=== PATIENT | female | born 1985 | race Caucasian/White ===

== ENCOUNTER 2017-07-02 18:33 | Emergency (ER) | payer SELFPAY ==
[2017-07-02] MEDS ORDERED: PROTONIX 40 MG IV IV ONE ×2 (18:55→19:17)
[2017-07-02] MEDS ORDERED: Zofran 4 MG/2 ML VIAL IV ONE (18:55)
[2017-07-02 18:56] VITALS: BP 156/88; PULSE 91; O2SAT 99
[2017-07-02] MEDS ORDERED: Sodium Chloride 0.9% 1000 ML 1,000 ML IV SCH (19:00)
[2017-07-02] MEDS ORDERED: Sodium Chloride 0.9% 1000 ML 1,000 ML ONE (19:17)
[2017-07-02] MEDS ORDERED: Zofran 4 MG/2 ML VIAL ONE (19:17)
[2017-07-02] MEDS ORDERED: Hydromorphone 1 mg/ml Ampule IV ONE (19:21)
[2017-07-02 19:30] LABS: BASOPHIL % 0.2 % (0.0-0.4); Basophil (Absolute #) 0.02 (0-0.4); Eosinophil % 3.1 % (0.00-5.0); Eosinophil (Absolute #) 0.27 (0-0.5); Granulocyte Absolute (ANC) 5.07 (1.4-6.9); Granulocytes % 57.6 % (36.0-66.0); Hematocrit 40.2 % (35-47); Hemoglobin 13.6 gm/dl (12.0-16.0); Lymphocyte (Absolute #) 2.76 (1.0-4.6); Lymphocytes % 31.3 % (24.0-44.0); Mean Cell Volume 88.7 fl (78-100); Mean Corpuscular Hgb Concent. 33.8 g/dl (32-36); Mean Platelet Volume 9.2 fl (6-9.5); Monocyte (Absolute #) 0.69 (0.0-1.3); Monocytes % 7.8 % (0.0-12.0); Platelet Count 297 K/mm3 (150-450); Red Blood Count 4.53 M/mm3 (4.1-5.4); Red Cell Distribution Width 13.2 % (11.5-14.0); White Blood Count 8.8 K/mm3 (4.0-10.5)
[2017-07-02 19:36] LABS: Appearance CLEAR (CLEAR); Bilirubin NEGATIVE (NEGATIVE); Glucose NEGATIVE (NEGATIVE); Ketones NEGATIVE (NEGATIVE); Leukocyte Esterase NEGATIVE (NEGATIVE); Nitrite NEGATIVE (NEGATIVE); Protein,Urine Dip NEGATIVE (Negative); Urobilinogen NORMAL mg/dL (0-1)
[2017-07-02 19:37] LABS: Blood NEGATIVE Ery/ul (0-5)
[2017-07-02] MEDS ORDERED: DILAUDID 2 MG INJECTION ONE (19:46)
[2017-07-02 19:47] LABS: ALKALINE PHOSPHATASE 65 U/L (38-126); ANION GAP 14.1 MEQ/L (5-15); Amphetamine,Urine NEGATIVE (NEGATIVE); BLOOD UREA NITROGEN 13 mg/dL (7-17); Barbiturate,Urine NEGATIVE (NEGATIVE); Benzodiazepine,Urine NEGATIVE (NEGATIVE); CHLORIDE 106 mmol/L (98-107); Calcium 9.1 mg/dL (8.4-10.2); Carbon Dioxide 23 mmol/L (22-30); Cocaine,Urine NEGATIVE (NEGATIVE); Creatinine 1 0.84 mg/dL (0.52-1.04); Glucose 168 mg/dL (74-106); LIPASE 89 U/L (23-300); Methadone,Urine NEGATIVE (NEGATIVE); Opiate,Urine NEGATIVE (NEGATIVE); PCP,Urine NEGATIVE (NEGATIVE); Potassium 3.5 mmol/L (3.5-5.1); SGOT/AST 18 U/L (14-36); SGPT/ALT 23 U/L (0-35); SODIUM 139 mmol/L (137-145); THC,Urine NEGATIVE (NEGATIVE); Total Protein 7.3 g/dL (6.3-8.2)
--- NOTE | 2017-07-02 20:11 | ERPHSYRPT ---
- History of Present Illness Time Seen by Provider: 07/02/17 19:00 Source: patient Exam Limitations: clinical condition Patient Subjective Stated Complaint: pt abd pain to left side, and radiates to lower back. pain off and on since january and was dx with gallstones. has not had follow up Triage Nursing Assessment: pt alert, resp easy, skin w/d/p, abd soft, tender to touch, Physician History: PATIENT WITH A HISTORY OF GALLSTONES AND KIDNEY STONES COMPLAINS OF BILATERAL LOWER BACK PAIN SINCE THE PAST 4 HOURS, ASSOCIATED WITH EPIGASTRIC PAINS. DENIES FEVER, NAUSEA OR EMESIS, RADIATION OF PAIN TO BACK OR LOWER ABDOMEN, FREQUENCY, URGENCY, DYSURIA OR HEMATURIA. Timing/Duration: hour(s) Method of Injury: other (DENIES INJURY OR TRAUMA) Quality: sharp Severity of Pain-Max: moderate Severity of Pain-Current: moderate Modifying Factors: Improves With: nothing Associated Symptoms: other (PAIN OVER FLANKS) Allergies/Adverse Reactions: promethazine [From Phenergan] Allergy (Verified 07/02/17 18:56) Home Medications: Ibuprofen 200 mg [Motrin 200 mg] 200 mg DAILY 07/02/17 [History] Omeprazole Magnesium [Prilosec Otc] 20 mg DAILY 07/02/17 [History] Hx Influenza Vaccination/Date Given: Yes Hx Pneumococcal Vaccination/Date Given: No Immunizations Up to Date: Yes - Review of Systems Constitutional: No Fever, No Chills Eyes: No Symptoms Ears, Nose, & Throat: No Symptoms Respiratory: No Symptoms, No Cough, No Dyspnea Cardiac: No Chest Pain, No Edema, No Syncope Abdominal/Gastrointestinal: Abdominal Pain, No Nausea, No Vomiting, No Diarrhea Genitourinary Symptoms: Flank Pain, No Dysuria Musculoskeletal: No Symptoms, No Back Pain, No Neck Pain Skin: No Rash Neurological: No Dizziness, No Focal Weakness, No Sensory Changes Psychological: No Symptoms Endocrine: No Symptoms All Other Systems: Reviewed and Negative - Past Medical History Pertinent Past Medical History: Yes GI Medical History: Gallbladder Disease - Past Surgical History Past Surgical History: Yes Genitourinary: Other Female Surgical History: Section - Social History Smoking Status: Current every day smoker Exposure to second hand smoke: Yes Drug Use: none Patient Lives Alone: No - Female History Hx Last Menstrual Period: may Hx Now: (UNKNOWN) - Nursing Vital Signs Nursing Vital Signs: Initial Vital Signs Temperature 99.0 F 07/02/17 18:48 Pulse Rate 91 H 07/02/17 18:48 Respiratory Rate 16 07/02/17 18:48 Blood Pressure 156/88 07/02/17 18:48 O2 Sat by Pulse Oximetry 99 07/02/17 18:48 Pain Scale Pain Intensity 7 - Physical Exam General Appearance: no apparent distress, alert Eye Exam: PERRL/EOMI, eyes nml inspection Neck Exam: normal inspection, non-tender, supple, full range of motion, No meningismus, No midline tenderness Respiratory Exam: normal breath sounds, lungs clear, No respiratory distress Cardiovascular Exam: regular rate/rhythm, normal heart sounds Gastrointestinal Exam: soft, normal bowel sounds, No tenderness (EPIGASTRIC TENDERNESS, NO GUARDING OR REBOUND TENDERNESS.), No mass Back Exam: CVA tenderness (MINIMAL BILATERAL FLANK TENDERNESS) Extremity Exam: normal inspection, normal range of motion, No calf tenderness, No pedal edema Peripheral Pulses: carotid (R): 2+, carotid (L): 2+, femoral (R): 2+, femoral (L ): 2+, dorsalis-pedis (R): 2+, dorsalis-pedis (L): 2+ Neurologic Exam: alert, oriented x 3, cooperative, tree sapper II-XII nml as tested, normal mood/affect, nml station & gait, sensation nml, No motor deficits Skin Exam: normal color, warm, dry, No rash SpO2 Interpretation: normal SpO2: 99 Oxygen Delivery: Room Air - CT Exams Abdomen/Pelvis CT Interpretation: Discussed w/radiologist (2 CM GALL STONE, 2 NONOBSTRUCTING LEFT RENAL MICROCALLCULI, NORMAL APPENDIX) Ordered Tests: Active Orders 24 hr Category Date Time Status Clean Catch Urine Specimen STAT Care 07/02/17 18:55 Active IV Insertion STAT Care 07/02/17 18:55 Active ABDOMEN AND PELVIS W/0 CONTRAS [CT] Stat Exams 07/02/17 18:56 Taken CBC W DIFF Stat Lab 07/02/17 19:25 Completed CMP Stat Lab 07/02/17 19:25 Completed HCG,QUALITATIVE URINE Stat Lab 07/02/17 19:25 Completed LIPASE Stat Lab 07/02/17 19:25 Completed UA W/RFX UR CULTURE Stat Lab 07/02/17 19:25 Completed Urine Triage Profile Stat Lab 07/02/17 19:25 Completed Medication Summary Generic Name Dose Route Start Last Admin Trade Name Cheli PRN Reason Stop Dose Admin Sodium Chloride 1,000 mls @ 500 mls/hr 07/02/17 19:00 07/02/17 19:20 Sodium Chloride 0.9% 1000 Ml IV 08/01/17 18:59 500 mls/hr .Q2H HINA Administration Discontinued Medications Generic Name Dose Route Start Last Admin Trade Name Cheli PRN Reason Stop Dose Admin Hydromorphone HCl 1 mg 07/02/17 19:21 07/02/17 19:51 Hydromorphone 1 Mg/Ml Ampule IV 07/02/17 19:22 1 mg STAT ONE Administration Hydromorphone HCl Confirm 07/02/17 19:46 Dilaudid 2 Mg Injection Administered 07/02/17 19:47 Dose 2 mg .ROUTE .STK-MED ONE Ondansetron HCl 4 mg 07/02/17 18:55 07/02/17 19:20 Zofran 4 Mg/2 Ml Vial IV 07/02/17 18:56 4 mg STAT ONE Administration Ondansetron HCl Confirm 07/02/17 19:17 Zofran 4 Mg/2 Ml Vial Administered 07/02/17 19:18 Dose 4 mg .ROUTE .STK-MED ONE Pantoprazole Sodium 40 mg 07/02/17 18:55 07/02/17 19:20 Protonix 40 Mg Iv IV 07/02/17 18:56 40 mg STAT ONE Administration Pantoprazole Sodium Confirm 07/02/17 19:17 Protonix 40 Mg Iv Administered 07/02/17 19:18 Dose 40 mg IV .STK-MED ONE Lab/Rad Data: Laboratory Result Diagrams 07/02/17 19:25 07/02/17 19:25 Laboratory Results 07/02/17 07/02/17 07/02/17 Range/Units 19:25 19:25 19:25 WBC (4.0-10.5) K/mm3 RBC (4.1-5.4) M/mm3 Hgb (12.0-16.0) gm/dl Hct (35-47) % MCV (78-100) fl MCH (26-32) pg MCHC (32-36) g/dl RDW (11.5-14.0) % Plt Count (150-450) K/mm3 MPV (6-9.5) fl Gran % (36.0-66.0) % Eos # (Auto) (0-0.5) Absolute Lymphs (auto) (1.0-4.6) Absolute Monos (auto) (0.0-1.3) Lymphocytes % (24.0-44.0) % Monocytes % (0.0-12.0) % Eosinophils % (0.00-5.0) % Basophils % (0.0-0.4) % Absolute Granulocytes (1.4-6.9) Basophils # (0-0.4) Sodium (137-145) mmol/L Potassium (3.5-5.1) mmol/L Chloride (98-107) mmol/L Carbon Dioxide (22-30) mmol/L Anion Gap (5-15) MEQ/L BUN (7-17) mg/dL Creatinine (0.52-1.04) mg/dL Estimated GFR ML/MIN Glucose (74-106) mg/dL Calcium (8.4-10.2) mg/dL Total Bilirubin (0.2-1.3) mg/dL AST (14-36) U/L ALT (0-35) U/L Alkaline Phosphatase (38-126) U/L Serum Total Protein (6.3-8.2) g/dL Albumin (3.5-5.0) g/dL Lipase (23-300) U/L Ur Collection Type CCMS Urine Color YELLOW (YELLOW) Urine Appearance CLEAR (CLEAR) Urine pH 5.0 (5-6) Ur Specific [place] 1.020 (1.005-1.025) Urine Protein NEGATIVE (Negative) Urine Ketones NEGATIVE (NEGATIVE) Urine Blood NEGATIVE (0-5) Flip/ul Urine Nitrite NEGATIVE (NEGATIVE) Urine Bilirubin NEGATIVE (NEGATIVE) Urine Urobilinogen NORMAL (0-1) mg/dL Ur Leukocyte Esterase NEGATIVE (NEGATIVE) Urine Culture Reflexed NO (NO) Urine Glucose NEGATIVE (NEGATIVE) mg/dL Urine HCG, Qual NEGATIVE (Negative) Urine Opiates Level NEGATIVE (NEGATIVE) Ur Methadone NEGATIVE (NEGATIVE) Urine Barbiturates NEGATIVE (NEGATIVE) Ur Phencyclidine (PCP) NEGATIVE (NEGATIVE) Urine Amphetamine NEGATIVE (NEGATIVE) U Benzodiazepine Level NEGATIVE (NEGATIVE) Urine Cocaine NEGATIVE (NEGATIVE) Urine Marijuana (THC) NEGATIVE (NEGATIVE) Specimen Received [id number]/02/17 07/02/17 Range/Units 19:25 19:25 WBC 8.8 (4.0-10.5) K/mm3 RBC 4.53 (4.1-5.4) M/mm3 Hgb 13.6 (12.0-16.0) gm/dl Hct 40.2 (35-47) % MCV 88.7 (78-100) fl MCH 30.0 (26-32) pg MCHC 33.8 (32-36) g/dl RDW 13.2 (11.5-14.0) % Plt Count 297 (150-450) K/mm3 MPV 9.2 (6-9.5) fl Gran % 57.6 (36.0-66.0) % Eos # (Auto) 0.27 (0-0.5) Absolute Lymphs (auto) 2.76 (1.0-4.6) Absolute Monos (auto) 0.69 (0.0-1.3) Lymphocytes % 31.3 (24.0-44.0) % Monocytes % 7.8 (0.0-12.0) % Eosinophils % 3.1 (0.00-5.0) % Basophils % 0.2 (0.0-0.4) % Absolute Granulocytes 5.07 (1.4-6.9) Basophils # 0.02 (0-0.4) Sodium 139 (137-145) mmol/L Potassium 3.5 (3.5-5.1) mmol/L Chloride 106 (98-107) mmol/L Carbon Dioxide 23 (22-30) mmol/L Anion Gap 14.1 (5-15) MEQ/L BUN 13 (7-17) mg/dL Creatinine 0.84 (0.52-1.04) mg/dL Estimated GFR > 60.0 ML/MIN Glucose 168 H (74-106) mg/dL Calcium 9.1 (8.4-10.2) mg/dL Total Bilirubin 0.10 L (0.2-1.3) mg/dL AST 18 (14-36) U/L ALT 23 (0-35) U/L Alkaline Phosphatase 65 (38-126) U/L Serum Total Protein 7.3 (6.3-8.2) g/dL Albumin 4.0 (3.5-5.0) g/dL Lipase 89 (23-300) U/L Ur Collection Type Urine Color (YELLOW) Urine Appearance (CLEAR) Urine pH (5-6) Ur Specific [place] (1.005-1.025) Urine Protein (Negative) Urine Ketones (NEGATIVE) Urine Blood (0-5) Flip/ul Urine Nitrite (NEGATIVE) Urine Bilirubin (NEGATIVE) Urine Urobilinogen (0-1) mg/dL Ur Leukocyte Esterase (NEGATIVE) Urine Culture Reflexed (NO) Urine Glucose (NEGATIVE) mg/dL Urine HCG, Qual (Negative) Urine Opiates Level (NEGATIVE) Ur Methadone (NEGATIVE) Urine Barbiturates (NEGATIVE) Ur Phencyclidine (PCP) (NEGATIVE) Urine Amphetamine (NEGATIVE) U Benzodiazepine Level (NEGATIVE) Urine Cocaine (NEGATIVE) Urine Marijuana (THC) (NEGATIVE) Specimen Received - Progress Progress Note: 07/02/17 20:11 IV NORMAL SALINE 500ML/HR, ZOFRAN 4MG, DILAUDID 1MG IV Counseled pt/family regarding: lab results, diagnosis, need for follow-up, rad results - Departure Time of Disposition: 21:00 Departure Disposition: Home Clinical Impression: ABDOMINAL PAIN., CHOLELITHIASIS, RENAL CALCULLI Condition: Stable Critical Care Time: No Referrals: DOCTOR,NO FAMILY [Primary Care Provider] - Additional Instructions: PERCOGESIC 1-2 TABLETS EVERY 4 HOURS NEEDED FOR PAIN. CONSULT YOUR PRIMARY CARE PROVIDER FOR EVALUATION OF GALLSTONE. RETURN TO EMERGENCY FOR INCREASING PAIN, ONSET OF FEVER OR VOMITING. Prescriptions: Acetaminophen/Diphenhydramine [Percogesic 325-12.5 mg Tablet] 1 each PO Q4HPRN PRN #20 tablet PRN Reason: Pain
--- NOTE | 2017-07-03 08:37 | XRAY ---
Indication: Flank pain. Multiple contiguous axial images obtained through the abdomen and pelvis without contrast as ordered. Comparison: December 25, 2008. Lung bases are clear. Heart is not enlarged. Noncontrasted stomach and bowel loops appear nonobstructed. Normal appendix. No free fluid/air. 2 new nonobstructing left renal micro-calculi, largest 3 mm. 2 cm new gallstone. Stable fatty liver. Remaining liver, gallbladder, pancreas, spleen, adrenal glands, kidneys, ureters, bladder, uterus, and aorta appear unremarkable for noncontrast exam. Osseous structures intact with mild lumbosacral junction degenerative disc disease. No ventral or inguinal hernias. Impression: 1. New gallstone and nonobstructing left renal micro-calculi. 2. Stable fatty liver. 3. No acute intra-abdominal/pelvic abnormalities on this noncontrast exam. CT DI 23.27
== END 2017-07-02 21:05 | disposition home or self-care (01) ==
LOC: ED 18:33
DX: R10.9 Unspecified abdominal pain (principal); K80.20 Calculus of gallbladder without cholecystitis without obstruction; N20.0 Calculus of kidney
CPT/HCPCS: 36000; 36415; 74176; 80053; 80307; 81002; 83690; 84703; 85025; 96360; 96361; 96365; 96374; 96375; 99284; J1170; J2405

== ENCOUNTER 2017-07-26 15:26 | Emergency (ER) | payer SELFPAY ==
[2017-07-26] MEDS ORDERED: Zofran 4 MG/2 ML VIAL IV ONE (16:13)
[2017-07-26] MEDS ORDERED: Pepcid 20 MG VIAL IV ONE ×2 (16:14→17:04)
[2017-07-26] MEDS ORDERED: Sodium Chloride 0.9% 1000 ML 1,000 ML IV SCH (16:15)
[2017-07-26 16:32] LABS: BASOPHIL % 0.2 % (0.0-0.4); Basophil (Absolute #) 0.02 (0-0.4); Eosinophil % 3.2 % (0.00-5.0); Eosinophil (Absolute #) 0.29 (0-0.5); Granulocyte Absolute (ANC) 5.11 (1.4-6.9); Granulocytes % 56.9 % (36.0-66.0); Hematocrit 40.2 % (35-47); Hemoglobin 13.3 gm/dl (12.0-16.0); Lymphocyte (Absolute #) 2.64 (1.0-4.6); Lymphocytes % 29.3 % (24.0-44.0); Mean Cell Volume 90.7 fl (78-100); Mean Corpuscular Hgb Concent. 33.1 g/dl (32-36); Monocyte (Absolute #) 0.94 (0.0-1.3); Monocytes % 10.4 % (0.0-12.0); Platelet Count 304 K/mm3 (150-450); Red Blood Count 4.43 M/mm3 (4.1-5.4); Red Cell Distribution Width 13.6 % (11.5-14.0)
[2017-07-26 16:38] LABS: Appearance CLEAR (CLEAR); Bilirubin NEGATIVE (NEGATIVE); Blood NEGATIVE Ery/ul (0-5); Glucose NEGATIVE (NEGATIVE); Ketones NEGATIVE (NEGATIVE); Leukocyte Esterase NEGATIVE (NEGATIVE); Nitrite NEGATIVE (NEGATIVE); Protein,Urine Dip NEGATIVE (Negative); Specific Gravity 1.015 (1.005-1.025); Urobilinogen NORMAL mg/dL (0-1)
--- NOTE | 2017-07-26 16:38 | ERPHSYRPT ---
- History of Present Illness Time Seen by Provider: 07/26/17 15:50 Historian: patient Exam Limitations: no limitations Patient Subjective Stated Complaint: states began having abd pain earlier today. hx gallstones. states pain is sharp. having some nausea but has not had diarrhea or vomiting. Triage Nursing Assessment: ambulated to room per self. skin w/d, color normal, resp easy. holding mid abd. abd soft, large. tender in upper abd. normal bowel sounds throughout. Physician History: Pt started c/p epigastric pain, nausea about one hour ago, she is nauseated, but denies vomiting, no diarrhea, fever, no SOB, or cough. She states, she has had similar paqin in the past several times, but not this "bad". She was diagnosed with gallstones, had 2 C sections, no other abdominal surgery. Activities at Onset: none Quality: cramping, sharpness Abdominal Pain Onset Location: epigastric Pain Radiation: no radiation Severity of Pain-Max: severe Severity of Pain-Current: moderate Modifying Factors: Improves With: nothing Associated Symptoms: nausea Previous symptoms: same symptoms as today Allergies/Adverse Reactions: ketorolac [From Toradol] Allergy (Verified 07/26/17 16:27) promethazine [From Phenergan] Allergy (Verified 07/26/17 15:41) tramadol Allergy (Verified 07/26/17 16:27) diphenhydramine [From Benadryl] Adverse Reaction (Verified 07/26/17 15:41) Home Medications: No Reportable Medications [No Reported Medications] 07/26/17 [History] Hx Tetanus, Diphtheria Vaccination/Date Given: Yes Hx Influenza Vaccination/Date Given: Yes Hx Pneumococcal Vaccination/Date Given: No - Review of Systems Constitutional: No Symptoms Respiratory: No Symptoms Cardiac: No Symptoms Abdominal/Gastrointestinal: Abdominal Pain, Nausea All Other Systems: Reviewed and Negative - Past Medical History Pertinent Past Medical History: Yes GI Medical History: Gallbladder Disease - Past Surgical History Past Surgical History: Yes Genitourinary: Other Female Surgical History: Section - Social History Smoking Status: Current every day smoker How long have you smoked: 13 Exposure to second hand smoke: No Drug Use: none Patient Lives Alone: No - Female History Hx Last Menstrual Period: 07/05/17 Hx Now: No - Nursing Vital Signs Nursing Vital Signs: Initial Vital Signs Temperature 97.7 F 07/26/17 15:34 Pulse Rate 83 07/26/17 15:34 Respiratory Rate 20 07/26/17 15:34 Blood Pressure 157/81 07/26/17 15:34 O2 Sat by Pulse Oximetry 98 07/26/17 15:34 Pain Scale Pain Intensity 9 - Physical Exam General Appearance: no apparent distress Eye Exam: eyes nml inspection Ears, Nose, Throat Exam: normal ENT inspection, moist mucous membranes Neck Exam: normal inspection, non-tender, supple Respiratory Exam: normal breath sounds, lungs clear, airway intact, No chest tenderness Cardiovascular Exam: regular rate/rhythm, normal heart sounds, normal peripheral pulses, No murmur Gastrointestinal/Abdomen Exam: soft, normal bowel sounds, tenderness (epigastric , mild), No distention, No mass, No guarding, No rebound, No hernia Back Exam: normal inspection, No CVA tenderness Extremity Exam: normal inspection Neurologic Exam: alert, oriented x 3, normal mood/affect Skin Exam: normal color, warm, dry, No rash Lymphatic Exam: adenopathy SpO2: 98 Oxygen Delivery: Room Air - Course Nursing assessment & vital signs reviewed: Yes EKG Interpreted by Me: RATE (86/min), NORMAL AXIS, NORMAL INTERVALS, Non- specific ST Changes Ordered Tests: Active Orders 24 hr Category Date Time Status EKG-ER Only STAT Care 07/26/17 16:13 Active IV Insertion STAT Care 07/26/17 16:13 Active ABDOMEN AND PELVIS W CONTRAST [CT] Stat Exams 07/26/17 16:13 Taken CHEST 1 VIEW (PORTABLE) Stat Exams 07/26/17 16:13 Taken AMYLASE Routine Lab 07/26/17 16:33 Completed CBC W DIFF Stat Lab 07/26/17 16:13 Completed CMP Routine Lab 07/26/17 16:33 Completed HCG,QUALITATIVE URINE Stat Lab 07/26/17 Completed LIPASE Routine Lab 07/26/17 16:33 Completed TROPONIN Q3H Lab 07/26/17 16:33 Completed TROPONIN Q3H Lab 07/26/17 19:15 Ordered TROPONIN Q3H Lab 07/26/17 22:15 Ordered TROPONIN Q3H Lab 07/27/17 01:15 Ordered TROPONIN Q3H Lab 07/27/17 04:15 Ordered UA W/RFX UR CULTURE Stat Lab 07/26/17 16:13 Completed Urine Triage Profile Stat Lab 04/26/18 Completed Medication Summary Generic Name Dose Route Start Last Admin Trade Name Cheli PRN Reason Stop Dose Admin Sodium Chloride 1,000 mls @ 100 mls/hr 07/26/17 16:15 07/26/17 17:08 Sodium Chloride 0.9% 1000 Ml IV 08/25/17 16:14 100 mls/hr .Q10H HINA Administration Discontinued Medications Generic Name Dose Route Start Last Admin Trade Name Cheli PRN Reason Stop Dose Admin Al Hydrox/Mg Hydrox/Simethicone Confirm 07/26/17 17:05 Maalox Es 30 Ml Unit Dose Administered 07/26/17 17:06 Dose 30 ml .ROUTE .STK-MED ONE Famotidine 20 mg 07/26/17 16:14 07/26/17 17:09 Pepcid 20 Mg Vial IV 07/26/17 16:15 20 mg STAT ONE Administration Famotidine Confirm 07/26/17 17:04 Pepcid 20 Mg Vial Administered 07/26/17 17:05 Dose 20 mg IV .STK-MED ONE Lidocaine HCl Confirm 07/26/17 17:05 Xylocaine Hcl Viscous * Administered 07/26/17 17:06 Dose 15 ml .ROUTE .STK-MED ONE Magnesium Hydroxide 45 ml 07/26/17 16:14 07/26/17 17:12 Gi Cocktail 45 Ml (Maalox/Lidocaine) PO 07/26/17 16:15 Not Given STAT ONE Ondansetron HCl 4 mg 07/26/17 16:13 07/26/17 17:09 Zofran 4 Mg/2 Ml Vial IV 07/26/17 16:14 4 mg STAT ONE Administration Ondansetron HCl Confirm 07/26/17 17:04 Zofran 4 Mg/2 Ml Vial Administered 07/26/17 17:05 Dose 4 mg .ROUTE .STK-MED ONE Lab/Rad Data: Laboratory Result Diagrams 07/26/17 16:13 07/26/17 16:33 Laboratory Results 07/26/17 07/26/17 07/26/17 Range/Units Unknown Unknown 16:33 WBC (4.0-10.5) K/mm3 RBC (4.1-5.4) M/mm3 Hgb (12.0-16.0) gm/dl Hct (35-47) % MCV (78-100) fl MCH (26-32) pg MCHC (32-36) g/dl RDW (11.5-14.0) % Plt Count (150-450) K/mm3 MPV (6-9.5) fl Gran % (36.0-66.0) % Eos # (Auto) (0-0.5) Absolute Lymphs (auto) (1.0-4.6) Absolute Monos (auto) (0.0-1.3) Lymphocytes % (24.0-44.0) % Monocytes % (0.0-12.0) % Eosinophils % (0.00-5.0) % Basophils % (0.0-0.4) % Absolute Granulocytes (1.4-6.9) Basophils # (0-0.4) Sodium 141 (137-145) mmol/L Potassium 3.8 (3.5-5.1) mmol/L Chloride 103 (98-107) mmol/L Carbon Dioxide 28 (22-30) mmol/L Anion Gap 14.0 (5-15) MEQ/L BUN 15 (7-17) mg/dL Creatinine 0.93 (0.52-1.04) mg/dL Estimated GFR > 60.0 ML/MIN Glucose 135 H (74-106) mg/dL Calcium 9.6 (8.4-10.2) mg/dL Total Bilirubin 0.10 L (0.2-1.3) mg/dL AST 28 (14-36) U/L ALT 31 (0-35) U/L Alkaline Phosphatase 69 (38-126) U/L Troponin I < 0.012 (0.000-0.034) ng/mL Serum Total Protein 7.6 (6.3-8.2) g/dL Albumin 4.1 (3.5-5.0) g/dL Amylase 95 (30-110) U/L Lipase 402 H (23-300) U/L Ur Collection Type Urine Color (YELLOW) Urine Appearance (CLEAR) Urine pH (5-6) Ur Specific [place] (1.005-1.025) Urine Protein (Negative) Urine Ketones (NEGATIVE) Urine Blood (0-5) Flip/ul Urine Nitrite (NEGATIVE) Urine Bilirubin (NEGATIVE) Urine Urobilinogen (0-1) mg/dL Ur Leukocyte Esterase (NEGATIVE) Urine Culture Reflexed (NO) Urine Glucose (NEGATIVE) mg/dL Urine HCG, Qual NEGATIVE (Negative) Urine Opiates Level NEGATIVE (NEGATIVE) Ur Methadone NEGATIVE (NEGATIVE) Urine Barbiturates NEGATIVE (NEGATIVE) Ur Phencyclidine (PCP) NEGATIVE (NEGATIVE) Urine Amphetamine NEGATIVE (NEGATIVE) U Benzodiazepine Level NEGATIVE (NEGATIVE) Urine Cocaine NEGATIVE (NEGATIVE) Urine Marijuana (THC) NEGATIVE (NEGATIVE) Specimen Received 07/26/17 07/26/17 Range/Units 16:13 16:13 WBC 9.0 (4.0-10.5) K/mm3 RBC 4.43 (4.1-5.4) M/mm3 Hgb 13.3 (12.0-16.0) gm/dl Hct 40.2 (35-47) % MCV 90.7 (78-100) fl MCH 30.0 (26-32) pg MCHC 33.1 (32-36) g/dl RDW 13.6 (11.5-14.0) % Plt Count 304 (150-450) K/mm3 MPV 9.0 (6-9.5) fl Gran % 56.9 (36.0-66.0) % Eos # (Auto) 0.29 (0-0.5) Absolute Lymphs (auto) 2.64 (1.0-4.6) Absolute Monos (auto) 0.94 (0.0-1.3) Lymphocytes % 29.3 (24.0-44.0) % Monocytes % 10.4 (0.0-12.0) % Eosinophils % 3.2 (0.00-5.0) % Basophils % 0.2 (0.0-0.4) % Absolute Granulocytes 5.11 (1.4-6.9) Basophils # 0.02 (0-0.4) Sodium (137-145) mmol/L Potassium (3.5-5.1) mmol/L Chloride (98-107) mmol/L Carbon Dioxide (22-30) mmol/L Anion Gap (5-15) MEQ/L BUN (7-17) mg/dL Creatinine (0.52-1.04) mg/dL Estimated GFR ML/MIN Glucose (74-106) mg/dL Calcium (8.4-10.2) mg/dL Total Bilirubin (0.2-1.3) mg/dL AST (14-36) U/L ALT (0-35) U/L Alkaline Phosphatase (38-126) U/L Troponin I (0.000-0.034) ng/mL Serum Total Protein (6.3-8.2) g/dL Albumin (3.5-5.0) g/dL Amylase (30-110) U/L Lipase (23-300) U/L Ur Collection Type VOID Urine Color YELLOW (YELLOW) Urine Appearance CLEAR (CLEAR) Urine pH 7.0 (5-6) Ur Specific [place] 1.015 (1.005-1.025) Urine Protein NEGATIVE (Negative) Urine Ketones NEGATIVE (NEGATIVE) Urine Blood NEGATIVE (0-5) Flip/ul Urine Nitrite NEGATIVE (NEGATIVE) Urine Bilirubin NEGATIVE (NEGATIVE) Urine Urobilinogen NORMAL (0-1) mg/dL Ur Leukocyte Esterase NEGATIVE (NEGATIVE) Urine Culture Reflexed NO (NO) Urine Glucose NEGATIVE (NEGATIVE) mg/dL Urine HCG, Qual (Negative) Urine Opiates Level (NEGATIVE) Ur Methadone (NEGATIVE) Urine Barbiturates (NEGATIVE) Ur Phencyclidine (PCP) (NEGATIVE) Urine Amphetamine (NEGATIVE) U Benzodiazepine Level (NEGATIVE) Urine Cocaine (NEGATIVE) Urine Marijuana (THC) (NEGATIVE) Specimen Received 07/26/17 1630 - Progress Progress: unchanged Progress Note: 07/26/17 18:03 Pt did not wait until all results returned ( CT abdomen/pelvis pending), she left AMA, refused further observation and treatments. She is alert and oriented x4, mentally competent. - Departure Time of Disposition: 18:04 Departure Disposition: AMA Clinical Impression: Abdominal pain Qualifiers: Abdominal location: epigastric Qualified Code(s): R10.13 - Epigastric pain Condition: Stable Critical Care Time: No Referrals: DID[facility] [Primary Care Provider] - Instructions: Acute Abdomen (Belly Pain) Additional Instructions: Rest x 2-3 days, drink plenty of fluids, return if severe pain, vomiting, or fever> 102 F!
[2017-07-26 16:53] LABS: ALBUMIN 4.1 g/dL (3.5-5.0); ALKALINE PHOSPHATASE 69 U/L (38-126); AMYLASE 95 U/L (30-110); BLOOD UREA NITROGEN 15 mg/dL (7-17); CHLORIDE 103 mmol/L (98-107); Calcium 9.6 mg/dL (8.4-10.2); Carbon Dioxide 28 mmol/L (22-30); Creatinine 1 0.93 mg/dL (0.52-1.04); Glucose 135 mg/dL (74-106); LIPASE 402 U/L (23-300); Potassium 3.8 mmol/L (3.5-5.1); SGOT/AST 28 U/L (14-36); SGPT/ALT 31 U/L (0-35); SODIUM 141 mmol/L (137-145); Total Protein 7.6 g/dL (6.3-8.2)
[2017-07-26] MEDS ORDERED: Zofran 4 MG/2 ML VIAL ONE (17:04)
[2017-07-26] MEDS ORDERED: MAALOX ES 30 ML UNIT DOSE ONE (17:05)
[2017-07-26] MEDS ORDERED: Sodium Chloride 0.9% 1000 ML 1,000 ML ONE (17:05)
[2017-07-26] MEDS ORDERED: XYLOCAINE HCl Viscous ONE (17:05)
[2017-07-26 17:06] LABS: Amphetamine,Urine NEGATIVE (NEGATIVE); Barbiturate,Urine NEGATIVE (NEGATIVE); Benzodiazepine,Urine NEGATIVE (NEGATIVE); Cocaine,Urine NEGATIVE (NEGATIVE); Methadone,Urine NEGATIVE (NEGATIVE); Opiate,Urine NEGATIVE (NEGATIVE); PCP,Urine NEGATIVE (NEGATIVE); THC,Urine NEGATIVE (NEGATIVE)
[2017-07-26 17:06] LABS: TROPONIN < 0.012 ng/mL (0.000-0.034)
[2017-07-26] MEDS: GI COCKTAIL 45 ML (Maalox/Lidocaine) PO ONE ×2 (17:09→17:12)
[2017-07-26 17:17] VITALS: BP 122/67; PULSE 91
[2017-07-26 18:05] VITALS: O2SAT 98
--- NOTE | 2017-07-26 18:32 | XRAY ---
Indication: Right upper quadrant pain. Comparison: None Portable chest demonstrates normal heart, lungs, and bony thorax.
--- NOTE | 2017-07-26 18:37 | XRAY ---
Indication: Right upper quadrant pain. Multiple contiguous axial images obtained through the abdomen and pelvis using 80 cc of Isovue-370 contrast only. Comparison: July 02, 2017. Lung bases remain clear. Heart is not enlarged. Stomach is distended with food/fluid. Noncontrasted stomach and bowel loops appear nonobstructed. There is again mild diffuse scattered colonic fecal debris throughout. Again normal appendix. No free fluid/air. Gallbladder partially contracted with stable 2 cm gallstone. Stable fatty liver and nonobstructing left renal micro-calculi. Remaining liver, gallbladder, pancreas, spleen, adrenal glands, kidneys, ureters, bladder, uterus, and aorta appear unremarkable. No pathologic retroperitoneal lymphadenopathy. Impression: 1. Contracted gallbladder with stable stone. 2. Mild fecal stasis without obstruction. 3. Stable fatty liver and nonobstructing left renal micro-calculi. CTDI 23.64
== END 2017-07-26 18:15 | disposition left against medical advice (07) ==
LOC: ED 15:26
DX: R10.13 Epigastric pain (principal); R11.0 Nausea
CPT/HCPCS: 36000; 36415; 71045; 74177; 80053; 80307; 81002; 82150; 83690; 84484; 84703; 85025; 93005; 96360; 96374; 96375; 99284; 99285; J2405; A9270-GY

== ENCOUNTER 2018-01-05 19:26 | Emergency (ER) | payer OTHER ==
[2018-01-05] MEDS ORDERED: Pepcid 20 MG PO ONE (20:20)
--- NOTE | 2018-01-05 20:20 | ERPHSYRPT ---
- History of Present Illness Time Seen by Provider: 01/05/18 20:10 Source: patient Exam Limitations: no limitations Patient Subjective Stated Complaint: states has a boil on upper inner left thigh for one week. denies drainage Triage Nursing Assessment: patient ambulated to room per self. did not want me to look at wound on leg at this time. states she is on her period. Physician History: 32-year-old white female arrives with complaint that she has a boil on her left upper thigh near her groin/buttock symptoms for a week she states today at home she had a fever no nausea no vomiting she states she has chronic heartburn for years. She takes medication for this every other day. She has no chest pain no abdominal pain. Past medical history includes gallbladder disease, anxiety, depression. Past surgical history includes . Timing/Duration: week(s) (1 week.) Severity: moderate Associated Symptoms: fever, No nausea, No vomiting, No abdominal pain, No shortness of breath, No heartburn, No diaphoresis, No cough, No chills, No chest pain, No headaches, No loss of appetite, No malaise, No rash, No syncope, No seizure, No weakness Allergies/Adverse Reactions: ketorolac [From Toradol] Allergy (Verified 01/05/18 19:47) promethazine [From Phenergan] Allergy (Verified 01/05/18 19:47) tramadol Allergy (Verified 01/05/18 19:47) diphenhydramine [From Benadryl] Adverse Reaction (Verified 01/05/18 19:47) Home Medications: Melatonin/Pyridoxine HCl (B6) [Melatonin 5 mg Tablet] 1 each PO HS 01/05/18 [ History] Hx Tetanus, Diphtheria Vaccination/Date Given: Yes Hx Influenza Vaccination/Date Given: No Hx Pneumococcal Vaccination/Date Given: No - Review of Systems Constitutional: No Fever, No Chills Eyes: No Symptoms Ears, Nose, & Throat: No Symptoms Respiratory: No Cough, No Dyspnea Cardiac: No Chest Pain, No Edema, No Syncope Abdominal/Gastrointestinal: Other (chronic heartburn), No Abdominal Pain, No Nausea, No Vomiting, No Diarrhea, No Constipation, No Hematemesis, No Hematochezia, No Melena, No Dysphagia, No Appetite Changes Genitourinary Symptoms: No Dysuria Musculoskeletal: No Back Pain, No Neck Pain Skin: Other (patient states she has a boil on her left upper thigh times one week.) Neurological: No Dizziness, No Focal Weakness, No Sensory Changes Psychological: No Symptoms Endocrine: No Symptoms All Other Systems: Reviewed and Negative - Past Medical History Pertinent Past Medical History: Yes GI Medical History: Gallbladder Disease Psycho-Social History: Anxiety, Depression - Past Surgical History Past Surgical History: Yes Genitourinary: Other Female Surgical History: Section - Social History Smoking Status: Current every day smoker How long have you smoked: 12 Exposure to second hand smoke: No Drug Use: none Patient Lives Alone: No - Female History Hx Last Menstrual Period: now Hx Now: No - Nursing Vital Signs Nursing Vital Signs: Initial Vital Signs Temperature 98.9 F 01/05/18 19:33 Pulse Rate 103 H 01/05/18 19:33 Respiratory Rate 16 01/05/18 19:33 Blood Pressure 147/87 01/05/18 19:33 O2 Sat by Pulse Oximetry 98 01/05/18 19:33 Pain Scale Pain Intensity 7 - Physical Exam General Appearance: mild distress, anxiety Ears, Nose, Throat Exam: normal ENT inspection, TMs normal, pharynx normal, moist mucous membranes Neck Exam: normal inspection, non-tender, supple, full range of motion Respiratory Exam: normal breath sounds, lungs clear, No respiratory distress Cardiovascular Exam: regular rate/rhythm, normal heart sounds, normal peripheral pulses Gastrointestinal/Abdomen Exam: soft, normal bowel sounds, No tenderness, No mass Back Exam: normal inspection, normal range of motion, No CVA tenderness, No vertebral tenderness Extremity Exam: normal inspection, normal range of motion, pelvis stable Neurologic Exam: alert, oriented x 3, cooperative, ribbon weaver II-XII nml as tested, normal mood/affect, nml cerebellar function, nml station & gait, sensation nml, No motor deficits Skin Exam: other (small hard lesion left upper thigh approximately 1 cm not erythematous.) Lymphatic Exam: No adenopathy SpO2 Interpretation: normal (98%) SpO2: 98 Oxygen Delivery: Room Air - Course Nursing assessment & vital signs reviewed: Yes Ordered Tests: Active Orders 24 hr Category Date Time Status Accucheck STAT Care 01/05/18 20:54 Active HCG,QUALITATIVE URINE Stat Lab 01/05/18 20:29 Completed UA W/RFX UR CULTURE Stat Lab 01/05/18 20:29 Completed Urine Triage Profile Stat Lab 01/05/18 20:29 Completed Medication Summary Discontinued Medications Generic Name Dose Route Start Last Admin Trade Name Cheli PRFelicita Reason Stop Dose Admin Famotidine 20 mg 01/05/18 20:20 01/05/18 20:26 Pepcid 20 Mg PO 01/05/18 20:21 20 mg STAT ONE Administration Famotidine Confirm 01/05/18 20:26 Pepcid 20 Mg Administered 01/05/18 20:27 Dose 20 mg .ROUTE .STK-MED ONE Lab/Rad Data: Laboratory Results 01/05/18 01/05/18 01/05/18 Range/Units 20:29 20:29 20:29 Urine Color YELLOW (YELLOW) Urine Appearance SLIGHTLY CLOUDY (CLEAR) Urine pH 5.0 (5-6) Ur Specific [place] 1.028 (1.005-1.025) Urine Protein NEGATIVE (Negative) Urine Ketones NEGATIVE (NEGATIVE) Urine Blood LARGE (0-5) Flip/ul Urine Nitrite NEGATIVE (NEGATIVE) Urine Bilirubin NEGATIVE (NEGATIVE) Urine Urobilinogen NEGATIVE (0-1) mg/dL Ur Leukocyte Esterase NEGATIVE (NEGATIVE) Urine WBC (Auto) 3-5 (0-5) /HPF Urine RBC (Auto) 11-15 (0-2) /HPF U Epithel Cells (Auto) RARE (FEW) /HPF Urine Culture Reflexed NO (NO) Urine Glucose >=500 (NEGATIVE) mg/dL Urine HCG, Qual NEGATIVE (Negative) Urine Opiates Level NEGATIVE (NEGATIVE) Ur Methadone NEGATIVE (NEGATIVE) Urine Barbiturates NEGATIVE (NEGATIVE) Ur Phencyclidine (PCP) NEGATIVE (NEGATIVE) Urine Amphetamine NEGATIVE (NEGATIVE) U Benzodiazepine Level NEGATIVE (NEGATIVE) Urine Cocaine NEGATIVE (NEGATIVE) Urine Marijuana (THC) NEGATIVE (NEGATIVE) - Progress Progress: improved Progress Note: 01/05/18 20:17 This is a 32-year-old white female with history of gallbladder disease, anxiety , depression She arrives with complaint of a small "boil left upper thigh symptoms for one week. She states that this area is painful she states she had a fever at home no nausea no vomiting. Patient does state that she has chronic heartburn for years she takes a medication every other day. On physical examination I see a small firm lesion 1 cm which is hard not erythematous left side the junction of the buttocks and groin. Really nothing that appears that can be lanced. Patient is refusing any EKGs refusing any blood work. Will go ahead and get a urine and urine drug screen. Plan to give patient Pepcid for her heartburn that she is to continue her medication at home. Consider Bactrim, consider a very small amount of pain medications. Patient does state she is allergic to Toradol promethazine tramadol and Benadryl. 01/05/18 20:59 Patient has a urine glucose of over 500. Patient was Accu-Chek of 277. Patient does not want IVs or blood work. She states she ate ice cream right before arrival. Will go ahead and write for Bactrim DS one orally twice a day for 10 days. Will write for a very small amount of [place] for pain. Patient will be advised to follow-up with her family doctor for further evaluation. 01/05/18 21: - Departure Time of Disposition: 21:01 Departure Disposition: Home Clinical Impression: Abscess of left groin, Hyperglycemia, Chronic heartburn Condition: Fair Critical Care Time: No Referrals: DIDI BARCENAS [facility]ER [Primary Care Provider] - Additional Instructions: Return home. Plenty of fluids. Bactrim DS one orally twice a day for 10 days. [place] 5/325 #8 one orally every 4-6 hours as needed for pain. Your blood sugars are elevated today you need to have these rechecked by your family doctor. you also have chronic heartburn which is difficult to evaluate without EKG and lab work. Follow-up with your family doctor for continued evaluation. Plenty of fluids. Return for acute distress or for severe symptoms. It is important that you follow-up with your family doctor for further workup. Prescriptions: Hydrocodone/Acetaminophen [[place] 5-325 Tablet] 1 tab PO Q4-6HPRN PRN #8 tablet MDD 6 tableta PRN Reason: Pain Smz/Tmp Ds Tablet [Bactrim Ds Tablet] 1 tab PO BID #20 tablet
[2018-01-05] MEDS ORDERED: Pepcid 20 MG ONE (20:26)
[2018-01-05 20:43] LABS: Appearance SLIGHTLY CLOUDY (CLEAR); Bilirubin NEGATIVE (NEGATIVE); Blood LARGE Ery/ul (0-5); Glucose >=500 mg/dL (NEGATIVE); Ketones NEGATIVE (NEGATIVE); Leukocyte Esterase NEGATIVE (NEGATIVE); Nitrite NEGATIVE (NEGATIVE); Protein,Urine Dip NEGATIVE (Negative); Specific Gravity 1.028 (1.005-1.025); Urobilinogen NEGATIVE mg/dL (0-1)
[2018-01-05 20:49] LABS: Amphetamine,Urine NEGATIVE (NEGATIVE); Barbiturate,Urine NEGATIVE (NEGATIVE); Benzodiazepine,Urine NEGATIVE (NEGATIVE); Cocaine,Urine NEGATIVE (NEGATIVE); Methadone,Urine NEGATIVE (NEGATIVE); Opiate,Urine NEGATIVE (NEGATIVE); PCP,Urine NEGATIVE (NEGATIVE); THC,Urine NEGATIVE (NEGATIVE)
[2018-01-05 21:06] VITALS: O2SAT 98
[2018-01-05] MEDS ORDERED: BACTRIM DS TABLET PO ONE ×2 (21:06→21:08)
[2018-01-05] MEDS ORDERED: NORCO 5/325 MG PO ONE (21:06)
[2018-01-05] MEDS ORDERED: NORCO 5/325 MG ONE (21:08)
[2018-01-05 21:15] VITALS: BP 133/82; PULSE 104
== END 2018-01-05 21:25 | disposition home or self-care (01) ==
LOC: ED 19:26
DX: L02.214 Cutaneous abscess of groin (principal); R73.9 Hyperglycemia, unspecified; R50.9 Fever, unspecified; R12 Heartburn
CPT/HCPCS: 80307; 81001; 82962; 84703; 99284; A9270-GY

== ENCOUNTER 2018-01-30 05:23 | Emergency (ER) | payer OTHER ==
[2018-01-30 05:59] VITALS: BP 129/56; PULSE 82; O2SAT 95
--- NOTE | 2018-01-30 06:18 | ERPHSYRPT ---
- History of Present Illness Time Seen by Provider: 01/30/18 06:09 Source: patient Exam Limitations: no limitations Patient Subjective Stated Complaint: Back pain/trouble urinating Triage Nursing Assessment: Patient ambulated into ED and transferred self to bed. Patient A+O X 3. Patient complains of pain to left side of back 11/09. Patient states she is also having trouble urinating. No visible injuries noted to back. Physician History: This is a 32-year-old white female with history of gallbladder disease, anxiety , depression She arrives with complaints that she is unable to urinate since 3:30 this morning. She states that she was having pain in her left flank. She has no nausea no vomiting. Patient was seen here on January 05, 2018 secondary to a small cyst on her thigh at that time there was nothing that could be incised she was placed on Bactrim at that time. Patient was noted to have a urine glucose greater than 500 at that time however she refused all treatment and all labs for this. Past medical history includes gallbladder disease, anxiety, depression. Past surgical history includes . Timing/Duration: today (3:30 AM) Severity: moderate Modifying Factors: Improves With: nothing Associated Symptoms: other (unable to urinate and left flank pain), No nausea, No vomiting, No abdominal pain, No shortness of breath, No heartburn, No diaphoresis, No cough, No chills, No chest pain, No fever, No headaches, No loss of appetite, No malaise, No rash, No syncope, No seizure, No weakness Allergies/Adverse Reactions: ketorolac [From Toradol] Allergy (Verified 01/30/18 05:59) promethazine [From Phenergan] Allergy (Verified 01/30/18 05:59) tramadol Allergy (Verified 01/30/18 05:59) diphenhydramine [From Benadryl] Adverse Reaction (Verified 01/30/18 05:59) Hx Tetanus, Diphtheria Vaccination/Date Given: Yes Hx Influenza Vaccination/Date Given: No Hx Pneumococcal Vaccination/Date Given: No Immunizations Up to Date: Yes - Review of Systems Constitutional: No Fever, No Chills Ears, Nose, & Throat: No Symptoms Respiratory: No Cough, No Dyspnea Cardiac: No Chest Pain, No Edema, No Syncope Abdominal/Gastrointestinal: No Symptoms Genitourinary Symptoms: Urinary Retention, Flank Pain (left flank pain) Musculoskeletal: No Back Pain, No Neck Pain Skin: No Rash Neurological: No Dizziness, No Focal Weakness, No Sensory Changes Psychological: No Symptoms Endocrine: No Symptoms All Other Systems: Reviewed and Negative - Past Medical History Pertinent Past Medical History: Yes GI Medical History: Gallbladder Disease Psycho-Social History: Anxiety, Depression - Past Surgical History Past Surgical History: Yes Genitourinary: Other Female Surgical History: Section - Social History Smoking Status: Current every day smoker How long have you smoked: 12 Exposure to second hand smoke: No Drug Use: none Patient Lives Alone: No - Female History Hx Last Menstrual Period: December 2017 Hx Now: No - Nursing Vital Signs Nursing Vital Signs: Initial Vital Signs Temperature 98.2 F 01/30/18 05:53 Pulse Rate 82 01/30/18 05:53 Respiratory Rate 18 01/30/18 05:53 Blood Pressure 129/56 01/30/18 05:53 O2 Sat by Pulse Oximetry 95 01/30/18 05:53 Pain Scale Pain Intensity 8 - Physical Exam General Appearance: no apparent distress, alert Eye Exam: PERRL/EOMI, eyes nml inspection Ears, Nose, Throat Exam: normal ENT inspection, TMs normal, pharynx normal, moist mucous membranes Neck Exam: normal inspection, non-tender, supple, full range of motion Respiratory Exam: normal breath sounds, lungs clear, No respiratory distress Cardiovascular Exam: regular rate/rhythm, normal heart sounds, normal peripheral pulses Gastrointestinal/Abdomen Exam: soft, normal bowel sounds, No tenderness, No mass Back Exam: CVA tenderness (left flank tenderness) Extremity Exam: normal inspection, normal range of motion, pelvis stable Neurologic Exam: alert, oriented x 3, cooperative, prep manager II-XII nml as tested, normal mood/affect, nml cerebellar function, nml station & gait, sensation nml, No motor deficits Skin Exam: normal color, warm, dry, No rash SpO2 Interpretation: normal (tonsil bed95%), borderline oxygenation SpO2: 95 Oxygen Delivery: Room Air Ordered Tests: Active Orders 24 hr Category Date Time Status Accucheck STAT Care 01/30/18 06:08 Active HCG,QUALITATIVE URINE Stat Lab 01/30/18 06:00 Received UA W/RFX UR CULTURE Stat Lab 01/30/18 06:00 Received - Progress Progress: unchanged Progress Note: 01/30/18 06:17 This is a 32-year-old white female with history of gallbladder disease, anxiety depression She arrives with complaint of left-sided flank pain and inability urinate since 3:30 this morning. Patient had been seen approximately 25 days ago for complaint of a small lesion on her left thigh at that time she had a urine which showed greater than 500 glucose in her urine. she had a small cyst on the left side she was placed on Bactrim. At the time of the that treatment it was noted that she had markedly elevated glucose in her urine however she refused all IVs, she refused blood work and just wanted Bactrim and some [place] for pain. Patient arrives today with complaint of pain in her left flank, inability to urinate. She has consented to have an Accu-Chek obtained this was noted to be 345. She again refuses IV and refuses IV labs. Will check patient's urinalysis and urine hCG. 01/30/18 06:34 Patient is now wanting to leave. She does not want to wait for her labs. I have told the patient that is very important that she gets this diabetes worked up she also needs to make sure that she does not have an infection in her urine. She states that she wants to go take her kids to school she states that she will consider coming back. I have told her that not treating her diabetes could have severe consequences for her entire body. Patient will be requested to sign out AGAINST MEDICAL ADVICE - Departure Time of Disposition: 06:35 Departure Disposition: AMA Clinical Impression: Left flank pain, Urinary retention, Hyperglycemia Condition: Fair Critical Care Time: No Referrals: DIDI BARCENAS [facility]ABILIT[facility] TECH [Primary Care Provider] - Additional Instructions: Your choosing to leave AGAINST MEDICAL ADVICE. You have been noticed 2 times in this emergency room to have an elevated blood sugar. Today you have signs of infection in your urine however we do not have results available in order to treat U. you need to realize that you could have severe health consequences if you do not pursue treatment for either a urinary infection or diabetes or both. Please follow-up with your family doctor you may return at any time.
[2018-01-30 06:36] LABS: Appearance CLOUDY (CLEAR); Specific Gravity 1.029 (1.005-1.025)
[2018-01-30 06:37] LABS: Bilirubin NEGATIVE (NEGATIVE); Blood LARGE Ery/ul (0-5); Glucose >=500 mg/dL (NEGATIVE); Ketones SMALL (NEGATIVE); Leukocyte Esterase NEGATIVE (NEGATIVE); Nitrite NEGATIVE (NEGATIVE); Protein,Urine Dip 30 (Negative); Urobilinogen NORMAL mg/dL (0-1)
== END 2018-01-30 06:36 | disposition left against medical advice (07) ==
LOC: ED 05:23
DX: R10.9 Unspecified abdominal pain (principal); R33.9 Retention of urine, unspecified; R73.9 Hyperglycemia, unspecified; F41.9 Anxiety disorder, unspecified; F32.9 Major depressive disorder, single episode, unspecified; Z72.0 Tobacco use; K82.9 Disease of gallbladder, unspecified
CPT/HCPCS: 81001; 82962; 84703; 87086; 99283

== ENCOUNTER 2018-05-25 14:30 | Emergency (ER) | payer MEDICAID, OTHER ==
[2018-05-25] MEDS ORDERED: XYLOCAINE VISCOUS 2% 20 ML CUP PO ONE (14:41)
[2018-05-25] MEDS ORDERED: Marcaine 0.5%/Epinephrine 10 ML IJ ONE (14:43)
[2018-05-25 14:46] VITALS: BP 144/91; PULSE 76; O2SAT 97
--- NOTE | 2018-05-25 14:49 | ERPHSYRPT ---
- History of Present Illness Time Seen by Provider: 05/25/18 14:34 Source: patient Exam Limitations: no limitations Physician History: developed a tooth ache a few days ago when a tooth ( upper left canine) fractured; now loose and painful to eat; no fever; hx of poor dentition; no fever; no trouble breathing or swallowing; no other complaints Timing/Duration: today (worse), day(s) (4) Severity: severe Modifying Factors: Improves With: other (eating) Associated Symptoms: denies symptoms Allergies/Adverse Reactions: ketorolac [From Toradol] Allergy (Verified 01/30/18 05:59) promethazine [From Phenergan] Allergy (Verified 01/30/18 05:59) tramadol Allergy (Verified 05/25/18 14:39) diphenhydramine [From Benadryl] Adverse Reaction (Verified 01/30/18 05:59) Home Medications: No Reportable Medications [No Reported Medications] 05/25/18 [History] Hx Tetanus, Diphtheria Vaccination/Date Given: Yes Hx Influenza Vaccination/Date Given: No Hx Pneumococcal Vaccination/Date Given: No - Review of Systems Constitutional: No Symptoms Eyes: No Symptoms Ears, Nose, & Throat: Mouth Pain (related to tooth), Loose Teeth, No Ear Pain, No Tinnitus, No Nose Pain, No Epistaxis, No Throat Pain, No Throat Swelling, No Painful Swallowing Respiratory: No Cough, No Dyspnea, No Wheezing Cardiac: No Chest Pain, No Palpitations, No Syncope Abdominal/Gastrointestinal: No Abdominal Pain, No Nausea, No Vomiting, No Diarrhea Genitourinary Symptoms: No Symptoms Musculoskeletal: No Symptoms Skin: No Symptoms Neurological: No Symptoms Psychological: No Symptoms Endocrine: No Symptoms Hematologic/Lymphatic: No Symptoms Immunological/Allergic: No Symptoms - Past Medical History Pertinent Past Medical History: Yes GI Medical History: Gallbladder Disease Psycho-Social History: Anxiety, Depression - Past Surgical History Past Surgical History: Yes Genitourinary: Other Female Surgical History: Section - Social History Smoking Status: Current every day smoker How long have you smoked: 12 Exposure to second hand smoke: No Alcohol Use: None Drug Use: none Patient Lives Alone: No - Nursing Vital Signs Nursing Vital Signs: Initial Vital Signs Temperature 98.7 F 05/25/18 14:40 Pulse Rate 76 05/25/18 14:40 Respiratory Rate 14 05/25/18 14:40 Blood Pressure 144/91 05/25/18 14:40 O2 Sat by Pulse Oximetry 97 05/25/18 14:40 Pain Scale Pain Intensity 7 - Physical Exam General Appearance: moderate distress (tooth ache left upper), alert, obese Eye Exam: PERRL/EOMI, eyes nml inspection Ears, Nose, Throat Exam: TMs normal, pharynx normal, moist mucous membranes, other (loose painful, tender left upper incisor; multipel caries and fractured tooth) Neck Exam: normal inspection, non-tender, supple, full range of motion, No meningismus, No JVD, No lymphadenopathy Respiratory Exam: normal breath sounds, lungs clear, airway intact, No chest tenderness, No respiratory distress, No wheezing Cardiovascular Exam: regular rate/rhythm, normal heart sounds, normal peripheral pulses, capillary refill <2 sec, No murmur Gastrointestinal/Abdomen Exam: soft, normal bowel sounds, No tenderness, No guarding, No rebound, No organomegaly Pelvic Exam: deferred Rectal Exam: deferred Back Exam: normal inspection, normal range of motion, No CVA tenderness Extremity Exam: normal inspection, normal range of motion, No pedal edema Neurologic Exam: alert, oriented x 3, cooperative, orthotic aide II-XII nml as tested, nml station & gait Skin Exam: normal color, warm, dry, No rash, No cyanosis Lymphatic Exam: No adenopathy - Course Nursing assessment & vital signs reviewed: Yes Ordered Tests: Active Orders 24 hr Category Date Time Status Re-Check Vital Signs STAT Care 05/25/18 14:41 Active Medication Summary Discontinued Medications Generic Name Dose Route Start Last Admin Trade Name Cheli PRN Reason Stop Dose Admin Bupivacaine HCl/Epinephrine Bitart 5 ml 05/25/18 14:43 05/25/18 14:52 Marcaine 0.5%/Epinephrine 10 Ml IJ 05/25/18 14:44 5 ml STAT ONE Administration Bupivacaine HCl/Epinephrine Bitart Confirm 05/25/18 14:50 Marcaine 0.5%/Epinephrine 10 Ml Administered 05/25/18 14:51 Dose 10 ml .ROUTE .STK-MED ONE Lidocaine HCl 20 ml 05/25/18 14:41 05/25/18 14:53 Xylocaine Viscous 2% 20 Ml Cup PO 05/25/18 14:42 20 ml STAT ONE Administration Lidocaine HCl Confirm 05/25/18 14:50 Xylocaine Hcl Viscous * Administered 05/25/18 14:51 Dose 20 ml .ROUTE .STK-MED ONE - Progress Progress: improved (after dental block), re-examined (after meds) Progress Note: 05/25/18 14:48 will use topical locally then do a dental block for relief- patient want us to pull the tooth- explained she will need to follow up with a DDS 05/25/18 15:22 appplied dental block with Mikenadja with- 3 cc left upper incisor- tolerated well- excellent releif within 5 minute- rechecked and instructions given Counseled pt/family regarding: diagnosis, need for follow-up - Departure Time of Disposition: 15:23 Departure Disposition: Home Clinical Impression: dental kanu, fractured tooth left up Condition: Stable Critical Care Time: No Referrals: DIDI BARCENAS [facility] UNDERWRITER [Primary Care Provider] - Instructions: Tooth Decay, Adult (DC), Dental Pain (DC) Additional Instructions: soft diet- gargle salt water and H2O2; follow up DDS; tylenol prn Follow-up with family doctor as directed. Call for appointment. Return if any problems. If you smoke please stop. Call or follow up with your family doctor for assistance if you need it to stop. Please wear your seatbelt when driving. Have a nice day. Thank you for allowing us to participate in your care today. :o) Dr Clement Shirley
[2018-05-25] MEDS ORDERED: XYLOCAINE HCl Viscous ONE (14:50)
[2018-05-25] MEDS ORDERED: Marcaine 0.5%/Epinephrine 10 ML ONE (14:50)
== END 2018-05-25 15:30 | disposition home or self-care (01) ==
LOC: ED 14:30
DX: K02.9 Dental caries, unspecified (principal); S02.5XXA Fracture of tooth (traumatic), initial encounter for closed fracture; X58.XXXA Exposure to other specified factors, initial encounter
CPT/HCPCS: 99283; A9270-GY

== ENCOUNTER 2018-07-15 11:23 | Emergency (ER) | payer MEDICAID ==
[2018-07-15 11:33] VITALS: BP 124/88; PULSE 70; O2SAT 98
--- NOTE | 2018-07-15 11:50 | ERPHSYRPT ---
- History of Present Illness Time Seen by Provider: 07/15/18 11:35 Source: patient Patient Subjective Stated Complaint: pt here for swelling and pain to left lower gum for 2 days now. has apt next sunday at dentist office in [facility] Nursing Assessment: pt alert, walked in, resp easy, skin w/d/p. pt has multi caries to teeth on left lower side . slight swelling to gum Physician History: 33 y/o white female presents with chronic poor dentition. she has left lower and upper dental pain for 2 days. pt states she has a dental appointment next week. Timing/Duration: gradual onset, days (2) Severity: mild ENT Location: dental Prearrival Treatment: over the counter meds Associated Symptoms: tooth pain Allergies/Adverse Reactions: ketorolac [From Toradol] Allergy (Verified 07/15/18 11:34) promethazine [From Phenergan] Allergy (Verified 07/15/18 11:34) tramadol Allergy (Verified 07/15/18 11:34) diphenhydramine [From Benadryl] Adverse Reaction (Verified 07/15/18 11:34) Hx Tetanus, Diphtheria Vaccination/Date Given: Yes Hx Influenza Vaccination/Date Given: No Hx Pneumococcal Vaccination/Date Given: No Immunizations Up to Date: Yes - Review of Systems Constitutional: No Symptoms Eyes: No Symptoms Ears, Nose, & Throat: Other (dental pain) Respiratory: No Symptoms Cardiac: No Symptoms Abdominal/Gastrointestinal: No Symptoms Genitourinary Symptoms: No Symptoms Musculoskeletal: No Symptoms Skin: No Symptoms Neurological: No Symptoms Psychological: No Symptoms Endocrine: No Symptoms Hematologic/Lymphatic: No Symptoms Immunological/Allergic: No Symptoms All Other Systems: Reviewed and Negative - Past Medical History Pertinent Past Medical History: No Neurological History: No Pertinent History ENT History: No Pertinent History Cardiac History: No Pertinent History Respiratory History: No Pertinent History Endocrine Medical History: No Pertinent History Musculoskeletal History: No Pertinent History GI Medical History: Gallbladder Disease History: No Pertinent History Psycho-Social History: Anxiety, Depression Female Reproductive Disorders: No Pertinent History - Past Surgical History Past Surgical History: Yes Neuro Surgical History: No Pertinent History Cardiac: No Pertinent History Respiratory: No Pertinent History Gastrointestinal: No Pertinent History Genitourinary: Other Musculoskeletal: No Pertinent History Female Surgical History: Section - Social History Smoking Status: Current every day smoker How long have you smoked: 12 Exposure to second hand smoke: Yes Alcohol Use: None Drug Use: none Patient Lives Alone: No - Female History Hx Last Menstrual Period: now Hx Now: No - Nursing Vital Signs Nursing Vital Signs: Initial Vital Signs Temperature 98.1 F 07/15/18 11:29 Pulse Rate 70 07/15/18 11:29 Respiratory Rate 16 07/15/18 11:29 Blood Pressure 124/88 07/15/18 11:29 O2 Sat by Pulse Oximetry 98 07/15/18 11:29 Pain Scale Pain Intensity 8 - Physical Exam General Appearance: no apparent distress, alert, anxiety Eye Exam: bilateral eye: normal inspection, PERRL, EOMI Ear Exam: bilateral ear: auricle normal Nasal Exam: normal inspection Throat Exam: pharynx normal, dental tenderness, voice changes (genralized dental caries with fx. 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 keep your dental appointment next week. Prescriptions: Amoxicillin 500 mg Cap [Amoxil 500 mg] 500 mg PO TID #30 capsule
[2018-07-15] MEDS ORDERED: PERCOCET TABLET 5/325MG PO STA (11:51)
[2018-07-15] MEDS ORDERED: PERCOCET TABLET 5/325MG ONE (11:57)
== END 2018-07-15 12:28 | disposition home or self-care (01) ==
LOC: ED 11:23
DX: K02.9 Dental caries, unspecified (principal)
CPT/HCPCS: 99283; A9270-GY

== ENCOUNTER 2019-09-25 20:35 | Emergency (ER) | payer MEDICAID, OTHER ==
[2019-09-25] MEDS ORDERED: Zofran 4 MG/2 ML VIAL IV ONE (21:19)
[2019-09-25] MEDS ORDERED: Sodium Chloride 0.9% 1000 ML 1,000 ML IV STA (21:19)
[2019-09-25] MEDS ORDERED: Hydromorphone 1 mg/ml Ampule IV ONE (21:19)
[2019-09-25] MEDS ORDERED: Hydromorphone 1 mg/ml Ampule ONE (21:24)
[2019-09-25] MEDS ORDERED: Zofran 4 MG/2 ML VIAL ONE (21:24)
[2019-09-25] MEDS ORDERED: Sodium Chloride 0.9% 1000 ML 1,000 ML ONE (21:24)
--- NOTE | 2019-09-25 21:26 | ERPHSYRPT ---
- History of Present Illness Time Seen by Provider: 09/25/19 21:10 Historian: patient Exam Limitations: no limitations Patient Subjective Stated Complaint: Patient states " My stomach has been hurting for last couple of days but tonight the pain became severe when i was si tting in [place]." The pain is like a constant pressure in my lower ABD. Patient states it feels like she is in labor but she is not . Triage Nursing Assessment: Patient arrived to ER via private vehicle with family driving. Physician History: This is a 34-year-old white female who is had chronic gallbladder problems. In the last week the patient states that she has had upper abdominal pain and she felt this might be related to her gallbladder issues. In the last 2 days though she states she has a new kind of pain and that is bilateral lower quadrant suprapubic regions. She is had nausea but no vomiting. She has had no vaginal discharge no diarrhea. She has no chest pain and she has no shortness of breath. Patient has had a bilateral tubal ligation in the past. Timing/Duration: day(s) (2) Activities at Onset: none Quality: cramping, stabbing Abdominal Pain Onset Location: RLQ, LLQ, suprapubic Pain Radiation: no radiation Severity of Pain-Max: moderate Severity of Pain-Current: moderate Modifying Factors: Improves With: nothing Associated Symptoms: denies symptoms Previous symptoms: no prior history Allergies/Adverse Reactions: ketorolac [From Toradol] Allergy (Verified 09/25/19 21:36) promethazine [From Phenergan] Allergy (Verified 09/25/19 21:36) tramadol Allergy (Verified 09/25/19 21:36) diphenhydramine [From Benadryl] Adverse Reaction (Verified 09/25/19 21:36) Home Medications: No Reportable Medications [No Reported Medications] 09/25/19 [History] Hx Tetanus, Diphtheria Vaccination/Date Given: Yes Hx Influenza Vaccination/Date Given: No Hx Pneumococcal Vaccination/Date Given: No Immunizations Up to Date: Yes Travel Risk - International Travel Have you traveled outside of the country in past 3 weeks: No - Coronavirus Screening Are you exhibiting any of the following symptoms?: No Close contact with a COVID-19 positive Pt in past 14-21 Days: No - Review of Systems Constitutional: No Symptoms Eyes: No Symptoms Ears, Nose, & Throat: No Symptoms Respiratory: No Symptoms Cardiac: No Symptoms Abdominal/Gastrointestinal: Abdominal Pain, Nausea, No Vomiting, No Diarrhea Genitourinary Symptoms: No Symptoms Musculoskeletal: No Symptoms Skin: No Symptoms Neurological: No Symptoms Psychological: No Symptoms Endocrine: No Symptoms Hematologic/Lymphatic: No Symptoms Immunological/Allergic: No Symptoms All Other Systems: Reviewed and Negative - Past Medical History Pertinent Past Medical History: No Neurological History: No Pertinent History ENT History: No Pertinent History Cardiac History: No Pertinent History Respiratory History: No Pertinent History Endocrine Medical History: No Pertinent History Musculoskeletal History: No Pertinent History GI Medical History: Gallbladder Disease History: No Pertinent History Psycho-Social History: Anxiety, Depression Female Reproductive Disorders: No Pertinent History - Past Surgical History Past Surgical History: Yes Neuro Surgical History: No Pertinent History Cardiac: No Pertinent History Respiratory: No Pertinent History Gastrointestinal: No Pertinent History Genitourinary: Other Musculoskeletal: No Pertinent History Female Surgical History: Section - Social History Smoking Status: Current every day smoker How long have you smoked: 15 years Exposure to second hand smoke: Yes Alcohol Use: None Drug Use: none Patient Lives Alone: No - Female History Hx Last Menstrual Period: Tubal Hx Now: No - Nursing Vital Signs Nursing Vital Signs: Initial Vital Signs Temperature 98.1 F 09/25/19 21:08 Pulse Rate 80 09/25/19 21:08 Respiratory Rate 18 09/25/19 21:08 Blood Pressure 125/78 09/25/19 21:08 O2 Sat by Pulse Oximetry 97 09/25/19 21:08 Pain Scale Pain Intensity 5 - Physical Exam General Appearance: no apparent distress, alert, anxiety Eye Exam: PERRL/EOMI, eyes nml inspection Ears, Nose, Throat Exam: normal ENT inspection, moist mucous membranes Neck Exam: normal inspection, non-tender, supple, full range of motion Respiratory Exam: normal breath sounds, lungs clear, airway intact, No chest tenderness, No respiratory distress Cardiovascular Exam: regular rate/rhythm, normal heart sounds, normal peripheral pulses Gastrointestinal/Abdomen Exam: soft, normal bowel sounds, tenderness (Prepubic and bilateral lower quadrants.), guarding, No rebound Pelvic Exam: not done Rectal Exam: not done Back Exam: normal inspection, normal range of motion, No CVA tenderness, No vertebral tenderness Extremity Exam: normal inspection, normal range of motion, pelvis stable Neurologic Exam: alert, oriented x 3, cooperative, 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 II-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 nml as tested, normal mood/affect, nml cerebellar function, nml station & gait, sensation nml Skin Exam: normal color, warm, dry Lymphatic Exam: No adenopathy SpO2 Interpretation: normal SpO2: 97 O2 Delivery: Room Air Ordered Tests: Active Orders 24 hr Category Date Time Status IV Insertion STAT Care 09/25/19 21:05 Active ABDOMEN AND PELVIS W/0 CONTRAS [CT] Stat Exams 09/25/19 21:20 Ordered AMYLASE Stat Lab 09/25/19 21:20 Completed CBC W DIFF Stat Lab 09/25/19 21:20 Completed CMP Stat Lab 09/25/19 21:20 Completed HCG,QUALITATIVE URINE Stat Lab 09/25/19 21:20 Completed LIPASE Stat Lab 09/25/19 21:20 Completed Lactic Acid Stat Lab 09/25/19 21:40 Completed UA W/RFX UR CULTURE Stat Lab 09/25/19 21:20 Completed Medication Summary Discontinued Medications Generic Name Dose Route Start Last Admin Trade Name Freq PRN Reason Stop Dose Admin Hydromorphone HCl 0.5 mg 09/25/19 21:19 09/25/19 21:26 Hydromorphone 1 Mg/Ml Ampule IV 09/25/19 21:20 0.5 mg STAT ONE Administration Hydromorphone HCl Confirm 09/25/19 21:24 Hydromorphone 1 Mg/Ml Ampule Administered 09/25/19 21:25 Dose 1 mg .ROUTE .STK-MED ONE Sodium Chloride 1,000 mls @ 999 mls/hr 09/25/19 21:19 09/25/19 22:30 Sodium Chloride 0.9% 1000 Ml IV 09/25/19 22:19 Infused .Q1H1M STA Infusion Sodium Chloride Confirm 09/25/19 21:24 Sodium Chloride 0.9% 1000 Ml Administered 09/25/19 21:25 Dose 1,000 mls @ ud .ROUTE .STK-MED ONE Insulin Human Regular 4 unit 09/25/19 22:28 09/25/19 22:33 Humulin R IV 09/25/19 22:29 4 unit STAT ONE Administration Insulin Human Regular Confirm 09/25/19 22:32 Humulin R Administered 09/25/19 22:33 Dose 4 unit .ROUTE .STK-MED ONE Ondansetron HCl 4 mg 09/25/19 21:19 09/25/19 21:26 Zofran 4 Mg/2 Ml Vial IV 09/25/19 21:20 4 mg STAT ONE Administration Ondansetron HCl Confirm 09/25/19 21:24 Zofran 4 Mg/2 Ml Vial Administered 09/25/19 21:25 Dose 4 mg .ROUTE .[facility] ONE Lab/Rad Data: Laboratory Result Diagrams 09/25/19 21:20 09/25/19 21:20 Laboratory Results 09/25/19 09/25/19 09/25/19 Range/Units 21:40 21:20 21:20 WBC (4.0-10.5) K/mm3 RBC (4.1-5.4) M/mm3 Hgb (12.0-16.0) gm/dl Hct (35-47) % MCV (78-100) fl MCH (26-32) pg MCHC (32-36) g/dl RDW (11.5-14.0) % Plt Count (150-450) K/mm3 MPV (7.5-11.0) fl Gran % (36.0-66.0) % Eos # (Auto) (0-0.5) Absolute Lymphs (auto) (1.0-4.6) Absolute Monos (auto) (0.0-1.3) Lymphocytes % (24.0-44.0) % Monocytes % (0.0-12.0) % Eosinophils % (0.00-5.0) % Basophils % (0.0-0.4) % Absolute Granulocytes (1.4-6.9) Basophils # (0-0.4) Sodium (137-145) mmol/L Potassium (3.5-5.1) mmol/L Chloride (98-107) mmol/L Carbon Dioxide (22-30) mmol/L Anion Gap (5-15) MEQ/L BUN (7-17) mg/dL Creatinine (0.52-1.04) mg/dL Estimated GFR ML/MIN Glucose (74-106) mg/dL Lactic Acid 1.6 (0.4-2.0) Calcium (8.4-10.2) mg/dL Total Bilirubin (0.2-1.3) mg/dL AST (14-36) U/L ALT (0-35) U/L Alkaline Phosphatase (38-126) U/L Serum Total Protein (6.3-8.2) g/dL Albumin (3.5-5.0) g/dL Amylase (30-110) U/L Lipase (23-300) U/L Urine Color YELLOW (YELLOW) Urine Appearance CLEAR (CLEAR) Urine pH 6.0 (5-6) Ur Specific [place] 1.037 (1.005-1.025) Urine Protein NEGATIVE (Negative) Urine Ketones NEGATIVE (NEGATIVE) Urine Blood NEGATIVE (0-5) Flip/ul Urine Nitrite NEGATIVE (NEGATIVE) Urine Bilirubin NEGATIVE (NEGATIVE) Urine Urobilinogen NEGATIVE (0-1) mg/dL Ur Leukocyte Esterase NEGATIVE (NEGATIVE) Urine WBC (Auto) NONE (0-5) /HPF Urine RBC (Auto) NONE (0-2) /HPF U Epithel Cells (Auto) RARE (FEW) /HPF Urine Bacteria (Auto) NONE (NEGATIVE) /HPF Urine Mucus (Auto) SLIGHT (NEGATIVE) /HPF Urine Culture Reflexed NO (NO) Urine Glucose >=500 (NEGATIVE) mg/dL Urine HCG, Qual NEGATIVE (Negative) 09/25/19 09/25/19 Range/Units 21:20 21:20 WBC 10.1 (4.0-10.5) K/mm3 RBC 5.02 (4.1-5.4) M/mm3 Hgb 15.1 (12.0-16.0) gm/dl Hct 44.7 (35-47) % MCV 89.0 (78-100) fl MCH 30.1 (26-32) pg MCHC 33.8 (32-36) g/dl RDW 12.9 (11.5-14.0) % Plt Count 286 (150-450) K/mm3 MPV 9.9 (7.5-11.0) fl Gran % 54.6 (36.0-66.0) % Eos # (Auto) 0.27 (0-0.5) Absolute Lymphs (auto) 3.29 (1.0-4.6) Absolute Monos (auto) 1.00 (0.0-1.3) Lymphocytes % 32.5 (24.0-44.0) % Monocytes % 9.9 (0.0-12.0) % Eosinophils % 2.7 (0.00-5.0) % Basophils % 0.3 (0.0-0.4) % Absolute Granulocytes 5.52 (1.4-6.9) Basophils # 0.03 (0-0.4) Sodium 136 L (137-145) mmol/L Potassium 4.0 (3.5-5.1) mmol/L Chloride 101 (98-107) mmol/L Carbon Dioxide 26 (22-30) mmol/L Anion Gap 12.8 (5-15) MEQ/L BUN 12 (7-17) mg/dL Creatinine 0.60 (0.52-1.04) mg/dL Estimated GFR > 60.0 ML/MIN Glucose 362 H (74-106) mg/dL Lactic Acid (0.4-2.0) Calcium 9.8 (8.4-10.2) mg/dL Total Bilirubin 0.40 (0.2-1.3) mg/dL AST 25 (14-36) U/L ALT 34 (0-35) U/L Alkaline Phosphatase 81 (38-126) U/L Serum Total Protein 7.7 (6.3-8.2) g/dL Albumin 4.3 (3.5-5.0) g/dL Amylase 82 (30-110) U/L Lipase 144 (23-300) U/L Urine Color (YELLOW) Urine Appearance (CLEAR) Urine pH (5-6) Ur Specific [place] (1.005-1.025) Urine Protein (Negative) Urine Ketones (NEGATIVE) Urine Blood (0-5) Flip/ul Urine Nitrite (NEGATIVE) Urine Bilirubin (NEGATIVE) Urine Urobilinogen (0-1) mg/dL Ur Leukocyte Esterase (NEGATIVE) Urine WBC (Auto) (0-5) /HPF Urine RBC (Auto) (0-2) /HPF U Epithel Cells (Auto) (FEW) /HPF Urine Bacteria (Auto) (NEGATIVE) /HPF Urine Mucus (Auto) (NEGATIVE) /HPF Urine Culture Reflexed (NO) Urine Glucose (NEGATIVE) mg/dL Urine HCG, Qual (Negative) - Progress Progress: improved, pain not gone completely, re-examined Progress Note: 09/25/19 22:37 Patient is not diabetic. She did not know she had high blood sugar issues. Patient will be given a small dose of intravenous regular insulin. Will recheck an Accu-Chek prior to patient discharge to home. Patient will to follow-up with a primary care physician to address outpatient issues including hyperglycemia. 09/25/19 22:52 Cat scan of the abdomen and pelvis reveals no acute intra-abdominal process Counseled pt/family regarding: lab results, diagnosis, need for follow-up, rad results - Departure Departure Disposition: Home Clinical Impression: Abdominal pain, Hyperglycemia Condition: Stable Critical Care Time: No Referrals: DOCTOR,NO FAMILY [Primary Care Provider] - Additional Instructions: Clear liquid diet. Follow-up with a primary care physician to be evaluated for outpatient management of your elevated blood sugar and other chronic issues.
[2019-09-25 21:29] LABS: Absolute Neutrophil Ct (ANC) 5.52 (1.4-6.9); BASOPHIL % 0.3 % (0.0-0.4); Basophil (Absolute #) 0.03 (0-0.4); Eosinophil % 2.7 % (0.00-5.0); Eosinophil (Absolute #) 0.27 (0-0.5); Hematocrit 44.7 % (35-47); Hemoglobin 15.1 gm/dl (12.0-16.0); Lymphocyte (Absolute #) 3.29 (1.0-4.6); Lymphocytes % 32.5 % (24.0-44.0); Mean Corpuscular Hemoglobin 30.1 pg (26-32); Mean Corpuscular Hgb Concent. 33.8 g/dl (32-36); Mean Platelet Volume 9.9 fl (7.5-11.0); Monocytes % 9.9 % (0.0-12.0); Neutrophil % 54.6 % (36.0-66.0); Platelet Count 286 K/mm3 (150-450); Red Blood Count 5.02 M/mm3 (4.1-5.4); Red Cell Distribution Width 12.9 % (11.5-14.0); White Blood Count 10.1 K/mm3 (4.0-10.5)
[2019-09-25 21:34] LABS: Appearance CLEAR (CLEAR); Bilirubin NEGATIVE (NEGATIVE); Blood NEGATIVE Ery/ul (0-5); Epithelial Cells RARE /HPF (FEW); Glucose >=500 mg/dL (NEGATIVE); Ketones NEGATIVE (NEGATIVE); Leukocyte Esterase NEGATIVE (NEGATIVE); Mucus SLIGHT /HPF (NEGATIVE); Nitrite NEGATIVE (NEGATIVE); Protein,Urine Dip NEGATIVE (Negative); Specific Gravity 1.037 (1.005-1.025); Urobilinogen NEGATIVE mg/dL (0-1)
[2019-09-25 21:40] LABS: ALBUMIN 4.3 g/dL (3.5-5.0); ALKALINE PHOSPHATASE 81 U/L (38-126); AMYLASE 82 U/L (30-110); ANION GAP 12.8 MEQ/L (5-15); BLOOD UREA NITROGEN 12 mg/dL (7-17); CHLORIDE 101 mmol/L (98-107); Calcium 9.8 mg/dL (8.4-10.2); Carbon Dioxide 26 mmol/L (22-30); Glucose 362 mg/dL (74-106); LIPASE 144 U/L (23-300); SGOT/AST 25 U/L (14-36); SGPT/ALT 34 U/L (0-35); SODIUM 136 mmol/L (137-145); Total Protein 7.7 g/dL (6.3-8.2)
[2019-09-25] MEDS ORDERED: HUMULIN R IV ONE (22:28)
[2019-09-25] MEDS ORDERED: HUMULIN R ONE (22:32)
[2019-09-25 22:37] VITALS: BP 123/75; PULSE 68
[2019-09-25 22:38] VITALS: O2SAT 97
--- NOTE | 2019-09-26 08:55 | XRAY ---
Indication: Right upper quadrant and suprapubic pain. Multiple contiguous axial images obtained through the abdomen and pelvis without contrast as ordered. Comparison: July 26, 2017. Lung bases demonstrates new 6 mm posterior left subpleural irregular noncalcified nodularity. No infiltrate or effusion. Heart is not enlarged. Noncontrasted stomach and bowel loops remain nonobstructed. Normal appendix. There is again mild diffuse scattered colonic fecal debris throughout, more than before. No free fluid/air. Stable 2 cm gallstone, nonobstructing left renal micro-calculus, and fatty liver. Remaining liver, pancreas, spleen, adrenal glands, kidneys, ureters, bladder, uterus, and aorta appear unremarkable for noncontrast exam. Osseous structures intact with again mild lumbosacral junction degenerative disc disease. Impression: 1. Mild worsening diffuse fecal stasis. 2. New 6 mm indeterminant left lung base irregular noncalcified nodularity. Consider CT chest exam to establish baseline with follow-up per Fleischner guidelines. 3. Stable large gallstone, fatty liver, and nonobstructing left renal micro-calculus. Comment: Preliminary interpretation was made by [facility]. No critical discrepancy.
== END 2019-09-25 23:06 | disposition home or self-care (01) ==
LOC: ED 20:35
DX: R10.31 Right lower quadrant pain (principal); R10.32 Left lower quadrant pain; R73.9 Hyperglycemia, unspecified; R11.0 Nausea
CPT/HCPCS: 36000; 36415; 74176; 80053; 81001; 82150; 82962; 83605; 83690; 84703; 85025; 96374; 96375; 99284; J1170; J1815; J2405

== ENCOUNTER 2020-03-01 11:49 | Emergency (ER) | payer OTHER ==
--- NOTE | 2020-03-01 11:53 | ERPHSYRPT ---
- History of Present Illness Time Seen by Provider: 03/01/20 11:53 Historian: patient Exam Limitations: no limitations Physician History: This is a 34-year-old white female who presents with left anterior chest pain described as constant dull ache with radiation that is sharp to her back and left arm. Onset of pain occurred approximately 4-5 o'clock this morning. [place] took some ibuprofen approximately 6:00 this morning. It did not help her pain. She states that she is not under any new or extreme stress. She takes no medications chronically. She does have issue with gallbladder problems. She has a history of migraines. She had a bilateral tubal ligation. She is a chronic every day smoker. Patient has never been diagnosed with any coronary artery disease. However, she does have family members that have had congestive heart failure is and heart attacks. Patient states that she can take Dilaudid and morphine. Patient states she is had no problems with aspirin in the past. Timing/Duration: today Activities at Onset: none Quality: dullness, sharpness Location: other (Left anterior chest) Chest Pain Radiation: arm (Left) Severity of Pain-Max: moderate Severity of Pain-Current: mild Associated Symptoms: denies symptoms Prior Chest Pain/Cardiac Workup: no prior chest pain Nitro Today/Relief: no nitro taken today Aspirin Treatment Today: no aspirin today Allergies/Adverse Reactions: ketorolac [From Toradol] Allergy (Verified 03/01/20 12:02) promethazine [From Phenergan] Allergy (Verified 03/01/20 12:02) tramadol Allergy (Verified 03/01/20 12:02) diphenhydramine [From Benadryl] Adverse Reaction (Verified 03/01/20 12:02) Home Medications: No Reportable Medications [No Reported Medications] 09/25/19 [History] Hx Tetanus, Diphtheria Vaccination/Date Given: Yes Hx Influenza Vaccination/Date Given: No Hx Pneumococcal Vaccination/Date Given: No Travel Risk - International Travel Have you traveled outside of the country in past 3 weeks: No - Coronavirus Screening Are you exhibiting any of the following symptoms?: No Close contact with a COVID-19 positive Pt in past 14-21 Days: No - Review of Systems Constitutional: No Symptoms Eyes: No Symptoms Ears, Nose, & Throat: No Symptoms Respiratory: No Symptoms Cardiac: Chest Pain (Left anterior) Abdominal/Gastrointestinal: No Symptoms Genitourinary Symptoms: No Symptoms Musculoskeletal: No Symptoms Skin: No Symptoms Neurological: No Symptoms Psychological: No Symptoms Endocrine: No Symptoms Hematologic/Lymphatic: No Symptoms Immunological/Allergic: No Symptoms All Other Systems: Reviewed and Negative - Past Medical History Pertinent Past Medical History: No Neurological History: No Pertinent History ENT History: No Pertinent History Cardiac History: No Pertinent History Respiratory History: No Pertinent History Endocrine Medical History: No Pertinent History Musculoskeletal History: No Pertinent History GI Medical History: Gallbladder Disease History: No Pertinent History Psycho-Social History: Anxiety, Depression Female Reproductive Disorders: No Pertinent History - Past Surgical History Past Surgical History: Yes Neuro Surgical History: No Pertinent History Cardiac: No Pertinent History Respiratory: No Pertinent History Gastrointestinal: No Pertinent History Genitourinary: Other Musculoskeletal: No Pertinent History Female Surgical History: Section - Social History Smoking Status: Current every day smoker How long have you smoked: 15 years Exposure to second hand smoke: Yes Alcohol Use: None Drug Use: none Patient Lives Alone: No - Nursing Vital Signs Nursing Vital Signs: Initial Vital Signs Temperature 98.3 F 03/01/20 11:50 Pulse Rate 80 03/01/20 11:50 Respiratory Rate 12 03/01/20 11:50 Blood Pressure 169/99 03/01/20 11:50 O2 Sat by Pulse Oximetry 97 03/01/20 11:50 Pain Scale Pain Intensity 2 - Physical Exam General Appearance: no apparent distress, alert, anxiety Eye Exam: PERRL/EOMI, eyes nml inspection Ears, Nose, Throat Exam: normal ENT inspection, moist mucous membranes Neck Exam: normal inspection, non-tender, supple, full range of motion Respiratory Exam: normal breath sounds, chest tenderness, lungs clear, No respiratory distress, No airway intact Cardiovascular Exam: regular rate/rhythm, normal heart sounds, normal peripheral pulses Gastrointestinal/Abdomen Exam: soft, normal bowel sounds, No tenderness Pelvic Exam: not done Rectal Exam: not done Back Exam: normal inspection, normal range of motion, No CVA tenderness, No vertebral tenderness Extremity Exam: normal inspection, normal range of motion, pelvis stable Neurologic Exam: alert, oriented x 3, cooperative, digital community manager II-XII nml as tested Skin Exam: normal color, warm, dry Lymphatic Exam: No adenopathy SpO2 Interpretation: normal O2 Delivery: Room Air - Course Nursing assessment & vital signs reviewed: Yes EKG Interpreted by Me: RATE ([id number]), Sinus Rhythm, NORMAL AXIS, NORMAL INTERVALS, NORMAL QRS, Other (No acute ischemic changes on this EKG. When compared to EKG dated 07/26/2017 there are no significant changes.) Ordered Tests: Active Orders 24 hr Category Date Time Status Bark Spudder STAT Care 03/01/20 12:02 Active EKG-ER Only STAT Care 03/01/20 12:01 Active IV Insertion STAT Care 03/01/20 12:01 Active Pulse Oximetry (ED) STAT Care 03/01/20 12:01 Active CHEST 1 VIEW (PORTABLE) Stat Exams 03/01/20 12:01 Completed CBC W DIFF Stat Lab 03/01/20 12:15 Completed CMP Stat Lab 03/01/20 12:15 Completed D-DIMER QUANTITATIVE Stat Lab 03/01/20 12:15 Completed NT PRO BNP Stat Lab 03/01/20 12:15 Completed PROTIME WITH INR Stat Lab 03/01/20 12:15 Completed TROPONIN Q3H Lab 03/01/20 12:15 Completed TROPONIN Q3H Lab 03/01/20 15:15 Ordered TROPONIN Q3H Lab 03/01/20 18:15 Ordered TROPONIN Q3H Lab 03/01/20 21:15 Ordered TROPONIN Q3H Lab 03/02/20 00:15 Ordered Medication Summary Discontinued Medications Generic Name Dose Route Start Last Admin Trade Name Freq PRN Reason Stop Dose Admin Aspirin 324 mg 03/01/20 12:26 03/01/20 12:29 Baby Aspirin 81 Mg Chew PO 03/01/20 12:27 324 mg STAT ONE Administration Hydromorphone HCl 0.5 mg 03/01/20 12:42 03/01/20 12:46 Hydromorphone 1 Mg/Ml Injection IV 03/01/20 12:43 0.5 mg STAT ONE Administration Hydromorphone HCl Confirm 03/01/20 12:43 Hydromorphone 1 Mg/Ml Injection Administered 03/01/20 12:44 Dose 1 mg .ROUTE .STK-MED ONE Ondansetron HCl 4 mg 03/01/20 12:42 03/01/20 12:46 Zofran 4 Mg/2 Ml Vial IV 03/01/20 12:43 4 mg STAT ONE Administration Ondansetron HCl Confirm 03/01/20 12:42 Zofran 4 Mg/2 Ml Vial Administered 03/01/20 12:43 Dose 4 mg .ROUTE .STK-MED ONE Lab/Rad Data: Laboratory Result Diagrams 03/01/20 12:15 03/01/20 12:15 Laboratory Results 03/01/20 03/01/20 03/01/20 Range/Units 12:15 12:15 12:15 WBC (4.0-10.5) K/mm3 RBC (4.1-5.4) M/mm3 Hgb (12.0-16.0) gm/dl Hct (35-47) % MCV (78-100) fl MCH (26-32) pg MCHC (32-36) g/dl RDW (11.5-14.0) % Plt Count (150-450) K/mm3 MPV (7.5-11.0) fl Gran % (36.0-66.0) % Eos # (Auto) (0-0.5) Absolute Lymphs (auto) (1.0-4.6) Absolute Monos (auto) (0.0-1.3) Lymphocytes % (24.0-44.0) % Monocytes % (0.0-12.0) % Eosinophils % (0.00-5.0) % Basophils % (0.0-0.4) % Absolute Granulocytes (1.4-6.9) Basophils # (0-0.4) PT 11.2 (9.95-12.35) SECONDS INR 0.99 (0.8-3.0) D-Dimer < 215 L (215-500) ng/mL Sodium 133 L (137-145) mmol/L Potassium 3.7 (3.5-5.1) mmol/L Chloride 100 (98-107) mmol/L Carbon Dioxide 23 (22-30) mmol/L Anion Gap 12.5 (5-15) MEQ/L BUN 10 (7-17) mg/dL Creatinine 0.51 L (0.52-1.04) mg/dL Estimated GFR > 60.0 ML/MIN Glucose 449 H (74-106) mg/dL Calcium 9.5 (8.4-10.2) mg/dL Total Bilirubin 0.40 (0.2-1.3) mg/dL AST 64 H (14-36) U/L ALT 85 H (0-35) U/L Alkaline Phosphatase 82 (38-126) U/L Troponin I < 0.012 (0.000-0.034) ng/mL NT-Pro-B Natriuret Pep 20.9 (0-450) pg/mL Serum Total Protein 7.7 (6.3-8.2) g/dL Albumin 4.2 (3.5-5.0) g/dL 11/30/20 Range/Units 12:15 WBC 7.8 (4.0-10.5) K/mm3 RBC 5.22 (4.1-5.4) M/mm3 Hgb 15.4 (12.0-16.0) gm/dl Hct 45.1 (35-47) % MCV 86.4 (78-100) fl MCH 29.5 (26-32) pg MCHC 34.1 (32-36) g/dl RDW 12.6 (11.5-14.0) % Plt Count 244 (150-450) K/mm3 MPV 10.3 (7.5-11.0) fl Gran % 55.6 (36.0-66.0) % Eos # (Auto) 0.33 (0-0.5) Absolute Lymphs (auto) 2.32 (1.0-4.6) Absolute Monos (auto) 0.76 (0.0-1.3) Lymphocytes % 29.9 (24.0-44.0) % Monocytes % 9.8 (0.0-12.0) % Eosinophils % 4.2 (0.00-5.0) % Basophils % 0.5 (0.0-0.4) % Absolute Granulocytes 4.32 (1.4-6.9) Basophils # 0.04 (0-0.4) PT (9.95-12.35) SECONDS INR (0.8-3.0) D-Dimer (215-500) ng/mL Sodium (137-145) mmol/L Potassium (3.5-5.1) mmol/L Chloride (98-107) mmol/L Carbon Dioxide (22-30) mmol/L Anion Gap (5-15) MEQ/L BUN (7-17) mg/dL Creatinine (0.52-1.04) mg/dL Estimated GFR ML/MIN Glucose (74-106) mg/dL Calcium (8.4-10.2) mg/dL Total Bilirubin (0.2-1.3) mg/dL AST (14-36) U/L ALT (0-35) U/L Alkaline Phosphatase (38-126) U/L Troponin I (0.000-0.034) ng/mL NT-Pro-B Natriuret Pep (0-450) pg/mL Serum Total Protein (6.3-8.2) g/dL Albumin (3.5-5.0) g/dL - Progress Progress: improved, re-examined Air Movement: good Progress Note: 03/01/20 13:02 Chest x-ray reveals no acute cardiopulmonary process. Blood Culture(s) Obtained: No Antibiotics given: No Counseled pt/family regarding: lab results, diagnosis, need for follow-up, rad results - Departure Departure Disposition: Home Clinical Impression: Chest pain, non-cardiac, Hyperglycemia Condition: Stable Critical Care Time: No Referrals: DOCTOR,NO FAMILY [Primary Care Provider] - Additional Instructions: Take your medications as prescribed. Follow-up with your primary care physician for further management of your chest pain and of your high blood sugar..
[2020-03-01] MEDS ORDERED: BABY ASPIRIN 81 MG CHEW PO ONE (12:26)
--- NOTE | 2020-03-01 12:39 | XRAY ---
Indication: Chest pain. Comparison: July 26, 2017. Portable chest again demonstrates normal heart, lungs, and bony thorax.
[2020-03-01] MEDS ORDERED: Zofran 4 MG/2 ML VIAL ONE (12:42)
[2020-03-01] MEDS ORDERED: Zofran 4 MG/2 ML VIAL IV ONE (12:42)
[2020-03-01] MEDS ORDERED: Hydromorphone 1 mg/ml Injection IV ONE (12:42)
[2020-03-01] MEDS ORDERED: Hydromorphone 1 mg/ml Injection ONE (12:43)
[2020-03-01 12:46] LABS: Absolute Neutrophil Ct (ANC) 4.32 (1.4-6.9); BASOPHIL % 0.5 % (0.0-0.4); Basophil (Absolute #) 0.04 (0-0.4); Eosinophil % 4.2 % (0.00-5.0); Eosinophil (Absolute #) 0.33 (0-0.5); Hematocrit 45.1 % (35-47); Hemoglobin 15.4 gm/dl (12.0-16.0); Lymphocyte (Absolute #) 2.32 (1.0-4.6); Lymphocytes % 29.9 % (24.0-44.0); Mean Cell Volume 86.4 fl (78-100); Mean Corpuscular Hemoglobin 29.5 pg (26-32); Mean Corpuscular Hgb Concent. 34.1 g/dl (32-36); Mean Platelet Volume 10.3 fl (7.5-11.0); Monocyte (Absolute #) 0.76 (0.0-1.3); Monocytes % 9.8 % (0.0-12.0); Neutrophil % 55.6 % (36.0-66.0); Platelet Count 244 K/mm3 (150-450); Red Blood Count 5.22 M/mm3 (4.1-5.4); Red Cell Distribution Width 12.6 % (11.5-14.0); White Blood Count 7.8 K/mm3 (4.0-10.5)
[2020-03-01 13:14] LABS: ALBUMIN 4.2 g/dL (3.5-5.0); ALKALINE PHOSPHATASE 82 U/L (38-126); ANION GAP 12.5 MEQ/L (5-15); BLOOD UREA NITROGEN 10 mg/dL (7-17); CHLORIDE 100 mmol/L (98-107); Calcium 9.5 mg/dL (8.4-10.2); Carbon Dioxide 23 mmol/L (22-30); Creatinine 1 0.51 mg/dL (0.52-1.04); EST GLOMERULAR FILTRATION RATE > 60.0 ML/MIN; Glucose 449 mg/dL (74-106); NT PRO BNP 20.9 pg/mL (0-450); Potassium 3.7 mmol/L (3.5-5.1); SGOT/AST 64 U/L (14-36); SGPT/ALT 85 U/L (0-35); SODIUM 133 mmol/L (137-145); Total Protein 7.7 g/dL (6.3-8.2)
[2020-03-01 13:16] LABS: INR 0.99 (0.8-3.0); PROTIME 11.2 SECONDS (9.95-12.35)
[2020-03-01 13:28] LABS: D-DIMER QUANTITATIVE < 215 ng/mL (215-500)
[2020-03-01 14:06] VITALS: BP 123/74; PULSE 71; O2SAT 96
== END 2020-03-01 14:00 | disposition home or self-care (01) ==
LOC: ED 11:49
DX: R07.89 Other chest pain (principal); R73.9 Hyperglycemia, unspecified; F41.9 Anxiety disorder, unspecified; Z72.0 Tobacco use
CPT/HCPCS: 36000; 36415; 71045; 80053; 83880; 84484; 85025; 85379; 85610; 93005; 93041; 94760; 96374; 96375; 99284; J1170; J2405; A9270-GY

== ENCOUNTER 2020-09-23 16:01 | Emergency (ER) | payer OTHER ==
[2020-09-23] MEDS ORDERED: Sodium Chloride 0.9% 1000 ML 1,000 ML IV STA (16:42)
[2020-09-23] MEDS ORDERED: MORPHINE SULFATE 2 MG INJ IV ONE (16:42)
[2020-09-23] MEDS ORDERED: Zofran 4 MG/2 ML VIAL IV ONE (16:42)
--- NOTE | 2020-09-23 16:43 | ERPHSYRPT ---
- History of Present Illness Time Seen by Provider: 09/23/20 16:15 Historian: patient Exam Limitations: no limitations Patient Subjective Stated Complaint: abd pain, "I think its my gall bladder." Triage Nursing Assessment: pt to ED c/o eipgastric abd pain that had sudden onset while at Doctors office. no NVD. rates 9/10 pain, tender to palp. states she thinks it is her gall bladder. "I was supposed to have it out 3 years ago but never did." pt appears anxious about situation and has expressed fears about surgeries. Physician History: Patient is a 35-year-old female presents to emergency room with complaints of epigastric pain. Patient believes it is her gallbladder. Patient states that she has gallstones. Patient states she was advised to undergo a cholecystectomy 3 years ago. Patient did not have surgery done for unclear reasons. Pain described as an ache that started suddenly. Pain rated 9 out of 10. Symptoms are moderate in intensity. Palpation to the right upper quadrant reproduces symptoms. Patient denies nausea or vomiting. No chest pain. No trauma no fevers. Patient voices no other complaints or concerns at this time. Timing/Duration: today Activities at Onset: none Quality: aching Abdominal Pain Onset Location: epigastric Pain Radiation: no radiation Severity of Pain-Max: moderate Severity of Pain-Current: mild Modifying Factors: Improves With: palpation Associated Symptoms: denies symptoms Previous symptoms: same symptoms as today Allergies/Adverse Reactions: ketorolac [From Toradol] Allergy (Verified 09/23/20 16:14) promethazine [From Phenergan] Allergy (Verified 09/23/20 16:14) tramadol Allergy (Verified 09/23/20 16:14) diphenhydramine [From Benadryl] Adverse Reaction (Verified 09/23/20 16:14) Home Medications: No Reportable Medications [No Reported Medications] 09/25/19 [History] Hx Tetanus, Diphtheria Vaccination/Date Given: Yes Hx Influenza Vaccination/Date Given: No Hx Pneumococcal Vaccination/Date Given: No Immunizations Up to Date: No Travel Risk - International Travel Have you traveled outside of the country in past 3 weeks: No - Coronavirus Screening Are you exhibiting any of the following symptoms?: No Close contact with a COVID-19 positive Pt in past 14-21 Days: No - Vaccine Status Have you recieved a Covid-19 vaccination: No - Review of Systems Constitutional: No Symptoms, No Fever, No Chills Eyes: No Symptoms Ears, Nose, & Throat: No Symptoms Respiratory: No Symptoms, No Cough, No Dyspnea Cardiac: No Symptoms, No Chest Pain, No Edema, No Syncope Abdominal/Gastrointestinal: No Symptoms, No Abdominal Pain, No Nausea, No Vomiting, No Diarrhea Genitourinary Symptoms: No Symptoms, No Dysuria Musculoskeletal: No Symptoms, No Back Pain, No Neck Pain Skin: No Symptoms, No Rash Neurological: No Symptoms, No Dizziness, No Focal Weakness, No Sensory Changes Psychological: No Symptoms Endocrine: No Symptoms Hematologic/Lymphatic: No Symptoms Immunological/Allergic: No Symptoms All Other Systems: Reviewed and Negative - Past Medical History Pertinent Past Medical History: Yes Neurological History: No Pertinent History ENT History: No Pertinent History Cardiac History: No Pertinent History Respiratory History: No Pertinent History Endocrine Medical History: No Pertinent History Musculoskeletal History: No Pertinent History GI Medical History: Gallbladder Disease History: No Pertinent History Psycho-Social History: Anxiety, Depression Female Reproductive Disorders: No Pertinent History Other Medical History: legally blind - Past Surgical History Past Surgical History: Yes Neuro Surgical History: No Pertinent History Cardiac: No Pertinent History Respiratory: No Pertinent History Gastrointestinal: No Pertinent History Genitourinary: No Pertinent History Musculoskeletal: No Pertinent History Female Surgical History: Section, Tubal Ligation - Social History Smoking Status: Current every day smoker How long have you smoked: 15 years Exposure to second hand smoke: Yes Alcohol Use: None Drug Use: none Patient Lives Alone: No - Female History Hx Last Menstrual Period: last month Hx Now: No (tubal) - Nursing Vital Signs Nursing Vital Signs: Initial Vital Signs Temperature 97.8 F 09/23/20 16:05 Pulse Rate 103 H 09/23/20 16:05 Respiratory Rate 17 09/23/20 16:05 Blood Pressure 122/86 09/23/20 16:05 O2 Sat by Pulse Oximetry 98 09/23/20 16:05 Pain Scale Pain Intensity 9 - Physical Exam General Appearance: no apparent distress, alert Eye Exam: PERRL/EOMI, eyes nml inspection Ears, Nose, Throat Exam: normal ENT inspection, pharynx normal, moist mucous membranes Neck Exam: normal inspection, non-tender, supple, full range of motion Respiratory Exam: normal breath sounds, lungs clear, No respiratory distress Cardiovascular Exam: regular rate/rhythm, normal heart sounds Gastrointestinal/Abdomen Exam: soft, other (Right upper quadrant tenderness to palpation.), No tenderness, No mass Back Exam: normal inspection, normal range of motion, No CVA tenderness, No vertebral tenderness Extremity Exam: normal inspection, normal range of motion, pelvis stable Neurologic Exam: alert, oriented x 3, cooperative, normal mood/affect, nml cerebellar function, sensation nml, No motor deficits Skin Exam: normal color, warm, dry Lymphatic Exam: adenopathy SpO2 Interpretation: normal SpO2: 98 O2 Delivery: Room Air - Course Nursing assessment & vital signs reviewed: Yes EKG Interpreted by Me: RATE (99), Sinus Rhythm, NORMAL AXIS, NORMAL INTERVALS - Radiology Ultrasound Exam Gallbladder Ultrasound: tele radiology report (Prominent gallstone measuring 2.5 cm in diameter causing posterior acoustic shadowing. No cholecystitis. No g allbladder enlargement. No gallbladder wall thickening or biliary duct dimension.) Ordered Tests: Active Orders 24 hr Category Date Time Status IV Insertion STAT Care 09/23/20 16:42 Active ABDOMEN AND PELVIS W CONTRAST [CT] Stat Exams 09/23/20 16:42 Taken GALLBLADDER [US] Stat Exams 09/23/20 16:42 Completed CBC W DIFF Stat Lab 09/23/20 16:42 Completed CMP Stat Lab 09/23/20 16:35 Completed LIPASE Stat Lab 09/23/20 16:35 Completed TROPONIN Q3H Lab 09/23/20 16:45 Completed TROPONIN Q3H Lab 09/23/20 18:56 Received TROPONIN Q3H Lab 09/23/20 22:45 Ordered TROPONIN Q3H Lab 09/24/20 01:45 Ordered TROPONIN Q3H Lab 09/24/20 04:45 Ordered Urine Triage Profile Stat Lab 09/23/20 16:42 Completed Medication Summary Discontinued Medications Generic Name Dose Route Start Last Admin Trade Name Freq PRN Reason Stop Dose Admin Droperidol 1.25 mg 09/23/20 18:57 09/23/20 19:03 Inapsine 5 Mg/2 Ml IV 09/23/20 18:58 1.25 mg STAT ONE Administration Droperidol Confirm 09/23/20 19:02 Inapsine 5 Mg/2 Ml Administered 09/23/20 19:03 Dose 5 mg .ROUTE .STK-MED ONE Sodium Chloride 1,000 mls @ 999 mls/hr 09/23/20 16:42 09/23/20 18:35 Sodium Chloride 0.9% 1000 Ml IV 09/23/20 17:42 Infused .Q1H1M STA Infusion Sodium Chloride Confirm 09/23/20 17:03 Sodium Chloride 0.9% 1000 Ml Administered 09/23/20 17:04 Dose 1,000 mls @ ud .ROUTE .STK-MED ONE Morphine Sulfate 2 mg 09/23/20 16:42 09/23/20 17:17 Morphine Sulfate 2 Mg Inj IV 09/23/20 16:43 Not Given STAT ONE Morphine Sulfate Confirm 09/23/20 17:02 Morphine Sulfate 2 Mg Inj Administered 09/23/20 17:03 Dose 2 mg .ROUTE .STK-MED ONE Ondansetron HCl 4 mg 09/23/20 16:42 09/23/20 17:07 Zofran 4 Mg/2 Ml Vial IV 09/23/20 16:43 4 mg STAT ONE Administration Ondansetron HCl Confirm 09/23/20 17:02 Zofran 4 Mg/2 Ml Vial Administered 09/23/20 17:03 Dose 4 mg .ROUTE .STK-MED ONE Lab/Rad Data: Laboratory Result Diagrams 09/23/20 16:42 09/23/20 16:35 Laboratory Results 09/23/20 09/23/20 09/23/20 Range/Units 16:45 16:42 16:42 WBC 10.9 H (4.0-10.5) K/mm3 RBC 5.32 (4.1-5.4) M/mm3 Hgb 15.6 (12.0-16.0) gm/dl Hct 45.4 (35-47) % MCV 85.3 (78-100) fl MCH 29.3 (26-32) pg MCHC 34.4 (32-36) g/dl RDW 12.4 (11.5-14.0) % Plt Count 302 (150-450) K/mm3 MPV 9.7 (7.5-11.0) fl Gran % 60.9 (36.0-66.0) % Eos # (Auto) 0.31 (0-0.5) Absolute Lymphs (auto) 3.08 (1.0-4.6) Absolute Monos (auto) 0.83 (0.0-1.3) Lymphocytes % 28.2 (24.0-44.0) % Monocytes % 7.6 (0.0-12.0) % Eosinophils % 2.8 (0.00-5.0) % Basophils % 0.5 (0.0-0.4) % Absolute Granulocytes 6.64 (1.4-6.9) Basophils # 0.06 (0-0.4) Sodium (137-145) mmol/L Potassium (3.5-5.1) mmol/L Chloride (98-107) mmol/L Carbon Dioxide (22-30) mmol/L Anion Gap (5-15) MEQ/L BUN (7-17) mg/dL Creatinine (0.52-1.04) mg/dL Estimated GFR ML/MIN Glucose (74-106) mg/dL Calcium (8.4-10.2) mg/dL Total Bilirubin (0.2-1.3) mg/dL AST (14-36) U/L ALT (0-35) U/L Alkaline Phosphatase (38-126) U/L Troponin I < 0.012 (0.000-0.034) ng/mL Serum Total Protein (6.3-8.2) g/dL Albumin (3.5-5.0) g/dL Lipase (23-300) U/L Urine Opiates Level NEGATIVE (NEGATIVE) Ur Methadone NEGATIVE (NEGATIVE) Urine Barbiturates NEGATIVE (NEGATIVE) Ur Phencyclidine (PCP) NEGATIVE (NEGATIVE) Urine Amphetamine NEGATIVE (NEGATIVE) U Benzodiazepine Level NEGATIVE (NEGATIVE) Urine Cocaine NEGATIVE (NEGATIVE) Urine Marijuana (THC) NEGATIVE (NEGATIVE) 09/23/20 Range/Units 16:35 WBC (4.0-10.5) K/mm3 RBC (4.1-5.4) M/mm3 Hgb (12.0-16.0) gm/dl Hct (35-47) % MCV (78-100) fl MCH (26-32) pg MCHC (32-36) g/dl RDW (11.5-14.0) % Plt Count (150-450) K/mm3 MPV (7.5-11.0) fl Gran % (36.0-66.0) % Eos # (Auto) (0-0.5) Absolute Lymphs (auto) (1.0-4.6) Absolute Monos (auto) (0.0-1.3) Lymphocytes % (24.0-44.0) % Monocytes % (0.0-12.0) % Eosinophils % (0.00-5.0) % Basophils % (0.0-0.4) % Absolute Granulocytes (1.4-6.9) Basophils # (0-0.4) Sodium 137 (137-145) mmol/L Potassium 3.5 (3.5-5.1) mmol/L Chloride 103 (98-107) mmol/L Carbon Dioxide 22 (22-30) mmol/L Anion Gap 14.7 (5-15) MEQ/L BUN 11 (7-17) mg/dL Creatinine 0.54 (0.52-1.04) mg/dL Estimated GFR > 60.0 ML/MIN Glucose 208 H (74-106) mg/dL Calcium 9.9 (8.4-10.2) mg/dL Total Bilirubin 0.20 (0.2-1.3) mg/dL AST 35 (14-36) U/L ALT 44 H (0-35) U/L Alkaline Phosphatase 79 (38-126) U/L Troponin I (0.000-0.034) ng/mL Serum Total Protein 8.1 (6.3-8.2) g/dL Albumin 4.5 (3.5-5.0) g/dL Lipase 196 (23-300) U/L Urine Opiates Level (NEGATIVE) Ur Methadone (NEGATIVE) Urine Barbiturates (NEGATIVE) Ur Phencyclidine (PCP) (NEGATIVE) Urine Amphetamine (NEGATIVE) U Benzodiazepine Level (NEGATIVE) Urine Cocaine (NEGATIVE) Urine Marijuana (THC) (NEGATIVE) - Progress Progress: improved Progress Note: Patient has multiple medication allergies from NSAIDs as well as narcotics. We've ordered morphine for pain control. Patient refused morphine states she has severe allergic reaction. Patient received a 1.25 mg dose of droperidol. Droperidol has analgesic and antiemetic properties. Patient states the medications started to make her feel crazy. Patient got up out of the room and left. Left was able to remove the IV prior to her leaving. Dr. Scott did not have the opportunity to speak to patient. Staff inform Dr. Scott that she left. CT abdomen pelvis results pending. Gallbladder ultrasound negative for cholecystitis. 09/23/20 19:20 Counseled pt/family regarding: lab results, diagnosis, rad results - Departure Departure Disposition: AMA Clinical Impression: Biliary colic, Hepatomegaly, Hepatic steatosis Condition: Stable Critical Care Time: No Referrals: AMEE LOERA MD [Primary Care Provider] -
[2020-09-23] MEDS ORDERED: Zofran 4 MG/2 ML VIAL ONE (17:02)
[2020-09-23] MEDS ORDERED: MORPHINE SULFATE 2 MG INJ ONE (17:02)
[2020-09-23] MEDS ORDERED: Sodium Chloride 0.9% 1000 ML 1,000 ML ONE (17:03)
[2020-09-23 17:05] LABS: Absolute Neutrophil Ct (ANC) 6.64 (1.4-6.9); BASOPHIL % 0.5 % (0.0-0.4); Basophil (Absolute #) 0.06 (0-0.4); Eosinophil % 2.8 % (0.00-5.0); Eosinophil (Absolute #) 0.31 (0-0.5); Hematocrit 45.4 % (35-47); Hemoglobin 15.6 gm/dl (12.0-16.0); Lymphocyte (Absolute #) 3.08 (1.0-4.6); Lymphocytes % 28.2 % (24.0-44.0); Mean Cell Volume 85.3 fl (78-100); Mean Corpuscular Hemoglobin 29.3 pg (26-32); Mean Corpuscular Hgb Concent. 34.4 g/dl (32-36); Mean Platelet Volume 9.7 fl (7.5-11.0); Monocyte (Absolute #) 0.83 (0.0-1.3); Monocytes % 7.6 % (0.0-12.0); Neutrophil % 60.9 % (36.0-66.0); Platelet Count 302 K/mm3 (150-450); Red Blood Count 5.32 M/mm3 (4.1-5.4); Red Cell Distribution Width 12.4 % (11.5-14.0); White Blood Count 10.9 K/mm3 (4.0-10.5)
[2020-09-23 17:07] LABS: ALBUMIN 4.5 g/dL (3.5-5.0); ALKALINE PHOSPHATASE 79 U/L (38-126); ANION GAP 14.7 MEQ/L (5-15); BLOOD UREA NITROGEN 11 mg/dL (7-17); CHLORIDE 103 mmol/L (98-107); Calcium 9.9 mg/dL (8.4-10.2); Carbon Dioxide 22 mmol/L (22-30); Creatinine 1 0.54 mg/dL (0.52-1.04); EST GLOMERULAR FILTRATION RATE > 60.0 ML/MIN; Glucose 208 mg/dL (74-106); LIPASE 196 U/L (23-300); Potassium 3.5 mmol/L (3.5-5.1); SGOT/AST 35 U/L (14-36); SGPT/ALT 44 U/L (0-35); SODIUM 137 mmol/L (137-145); Total Protein 8.1 g/dL (6.3-8.2)
[2020-09-23 17:50] LABS: Amphetamine,Urine NEGATIVE (NEGATIVE); Barbiturate,Urine NEGATIVE (NEGATIVE); Benzodiazepine,Urine NEGATIVE (NEGATIVE); Cocaine,Urine NEGATIVE (NEGATIVE); Methadone,Urine NEGATIVE (NEGATIVE); Opiate,Urine NEGATIVE (NEGATIVE); PCP,Urine NEGATIVE (NEGATIVE); THC,Urine NEGATIVE (NEGATIVE)
--- NOTE | 2020-09-23 18:04 | XRAY ---
Exam: Gallbladder ultrasound from 09/23/2014. Comparison: CT of the abdomen and pelvis without IV contrast from 09/25/2019. Indication: Right upper quadrant abdominal pain and history of past gallstones. Findings: The nuclear medicine technologist left a note that the patient was not NPO before this exam and had eaten a variety of foods. The pancreas is partially seen on a transverse image. No gross abnormality is seen, although some overlying bowel gas limits assessment. The right lobe of the liver measures 19.3 cm in greatest craniocaudal dimension which is mildly increased. Also, there appears to be some mild diffuse fatty infiltration within the liver. Normal color blood flow within the main portal vein toward the liver is seen. Some adjacent bowel gas artifact is evident. The gallbladder is remarkable for a prominent posterior shadowing gallstone measuring about 2.5 cm in width. The gallbladder is not enlarged. The gallbladder wall thickness measures 1.1 mm which is normal. No pericholecystic edema or fluid is seen. The proximal common bile duct measures 4 mm in diameter which is normal. No free fluid is seen within the right upper quadrant. The right kidney measures 11.9 cm in length. No mass or hydronephrosis is seen. Impression: 1. I again see a prominent intraluminal gallstone measuring at least 2.5 cm in diameter causing posterior acoustical shadowing. 2. No gallbladder enlargement, gallbladder wall thickening, or biliary duct distention is seen. 3. Mild hepatomegaly and hepatic steatosis are seen. 4. Scattered bowel gas artifact is seen within the upper mid abdomen and right upper quadrant. The patient was not NPO for this exam. Bowel gas partially obscure the pancreas.
[2020-09-23 18:43] VITALS: BP 120/88; PULSE 85
[2020-09-23 18:44] VITALS: O2SAT 98
[2020-09-23] MEDS ORDERED: Inapsine 5 MG/2 ML IV ONE (18:57)
[2020-09-23] MEDS ORDERED: Inapsine 5 MG/2 ML ONE (19:02)
--- NOTE | 2020-09-25 12:29 | XRAY ---
Exam: CT of the abdomen and pelvis with IV contrast from 09/23/2020. CTDI: 14.17 mGy Comparison: CT of the abdomen and pelvis without IV contrast from 09/25/2019. Indication: 35-year-old female with both right upper quadrant and left upper quadrant abdominal pain; known large gallstone. Technique: Post-IV contrast axial images were obtained through the abdomen and pelvis during automated injection of 80 ML's of IV Isovue 370 contrast material. Reconstructed coronal and sagittal images were created and reviewed. No oral contrast was given. Delayed axial images were obtained through the abdomen and pelvis. Findings: The visualized lung bases appear clear. Minimal high attenuation density is seen within the posterior aspect of the stomach lumen, likely due to medication. The liver reveals mild diffuse hepatic steatosis without mass or intrahepatic bilaey duct distention. I again see a large intraluminal gallstone. The spleen, pancreas, adrenal glands, and kidneys are remarkable only for a 3.5 mm non-obstructing stone in the lower pole of the left kidney. No renal mass or hydronephrosis is seen. The kidneys appear of normal size and shape. Both kidneys function. No abdominal aortic aneurysm or abnormal retroperitoneal lymphadenopathy is seen. No ventral abdominal hernia or free intraperitoneal air is seen. Scattered fecal residue is seen throughout the colon. No bowel distention or bowel wall thickening is seen. I see no findings of appendicitis within the right lower quadrant. The uterus is anteflexed. There is a probable 1.1 cm diameter nabothian cyst just above the cervix on the sagittal images. The right ovary appears unremarkable. The left ovary is not definitely seen. I note a minimal amount of free intraperitoneal fluid within the cul-de-sac. Correlate clinically regarding a ruptured/leaking adnexal cyst. The urinary bladder appears unremarkable. The skeleton reveals no acute fracture or aggressive bone lesion. Mild degenerative disc disease is seen at L5-S1. Impression: 1. No acute process is seen in the abdomen or pelvis. 2. Hepatic steatosis, cholelithiasis, non-obstructing left renal stone, and minimal free fluid in the cul de sac is seen. 3. Moderate retained colonic stool without bowel obstruction.
== END 2020-09-23 19:18 | disposition left against medical advice (07) ==
LOC: ED 16:01
DX: K80.50 Calculus of bile duct without cholangitis or cholecystitis without obstruction (principal); R16.0 Hepatomegaly, not elsewhere classified; K76.0 Fatty (change of) liver, not elsewhere classified; R10.13 Epigastric pain
CPT/HCPCS: 36000; 36415; 74177; 76705; 80053; 80307; 83690; 84484; 85025; 96374; 96375; 99284; J2270; J2405

== ENCOUNTER 2020-12-02 17:43 | Emergency (ER) | payer OTHER ==
[2020-12-02 17:57] VITALS: PULSE 96; O2SAT 97
--- NOTE | 2020-12-02 18:22 | ERPHSYRPT ---
- History of Present Illness Time Seen by Provider: 12/02/20 17:50 Source: patient Exam Limitations: no limitations Patient Subjective Stated Complaint: Pt states that she has some infected teeth in the bottom left of her mouth and her medicaid doesn't pay for dental and she can't change it until January and needs an antibiotic Triage Nursing Assessment: Pt brought self to the ER, vitals wnl, rates mouth pain as 10/10, states that she hasn't eaten in a couple of days due to her mouth pain, pulses normal, skin n/w/d, pt is a type 2 diabetic Physician History: Patient is a 35-year-old white female with numerous dental problems who presents with swelling of the left mandibular area posteriorly and blood and pus being noted in the area of the mouth. From carious teeth and one molar which is obviously abscessed Timing/Duration: gradual onset Severity: moderate ENT Location: mouth Prearrival Treatment: no prearrival treatment Modifying Factors: Improves With: nothing Associated Symptoms: facial pain/swelling, jaw pain, tooth pain Allergies/Adverse Reactions: ketorolac [From Toradol] Allergy (Verified 12/02/20 17:57) promethazine [From Phenergan] Allergy (Verified 12/02/20 17:57) tramadol Allergy (Verified 12/02/20 17:57) diphenhydramine [From Benadryl] Adverse Reaction (Verified 12/02/20 17:57) Home Medications: Gabapentin 100 mg [Neurontin 100 MG] 100 mg PO BID 12/02/20 [History] Insulin Glargine/Lixisenatide [Soliqua 100 Unit-33 Mcg/ml Pen] 45 units SQ HS 12/02/20 [History] Hx Tetanus, Diphtheria Vaccination/Date Given: Yes Hx Influenza Vaccination/Date Given: No Hx Pneumococcal Vaccination/Date Given: No Travel Risk - International Travel Have you traveled outside of the country in past 3 weeks: No - Coronavirus Screening Are you exhibiting any of the following symptoms?: No Close contact with a COVID-19 positive Pt in past 14-21 Days: No - Vaccine Status Have you recieved a Covid-19 vaccination: No - Review of Systems Constitutional: No Fever, No Chills Eyes: No Symptoms Ears, Nose, & Throat: No Symptoms Respiratory: No Cough, No Dyspnea Cardiac: No Chest Pain, No Edema, No Syncope Abdominal/Gastrointestinal: No Abdominal Pain, No Nausea, No Vomiting, No Diarrhea Genitourinary Symptoms: No Dysuria Musculoskeletal: No Back Pain, No Neck Pain Skin: No Rash Neurological: No Dizziness, No Focal Weakness, No Sensory Changes Psychological: No Symptoms Endocrine: No Symptoms All Other Systems: Reviewed and Negative - Past Medical History Pertinent Past Medical History: Yes Neurological History: No Pertinent History ENT History: No Pertinent History Cardiac History: No Pertinent History Respiratory History: No Pertinent History Endocrine Medical History: Diabetes Type II Musculoskeletal History: No Pertinent History GI Medical History: Gallbladder Disease History: No Pertinent History Psycho-Social History: Anxiety, Depression Female Reproductive Disorders: No Pertinent History Other Medical History: legally blind - Past Surgical History Past Surgical History: Yes Neuro Surgical History: No Pertinent History Cardiac: No Pertinent History Respiratory: No Pertinent History Gastrointestinal: No Pertinent History Genitourinary: No Pertinent History Musculoskeletal: No Pertinent History Female Surgical History: Section, Tubal Ligation - Social History Smoking Status: Current every day smoker How long have you smoked: 15 years Exposure to second hand smoke: Yes Alcohol Use: None Drug Use: none Patient Lives Alone: No - Female History Hx Now: No (tubal) - Nursing Vital Signs Nursing Vital Signs: Initial Vital Signs Temperature 98.2 F 12/02/20 17:47 Pulse Rate 96 H 12/02/20 17:47 O2 Sat by Pulse Oximetry 97 12/02/20 17:47 Pain Scale Pain Intensity 10 - Physical Exam General Appearance: mild distress, alert Eye Exam: bilateral eye: PERRL, EOMI Nasal Exam: normal inspection Throat Exam: pharynx normal, dental tenderness (There is tenderness along the left mandibular area and there is multiple carious teeth and an obvious abscess in the left mandibular molar area.), moist mucus membranes, No tonsillar exudate Neck Exam: supple Cardiovascular/Respiratory Exam: normal breath sounds, regular rate/rhythm Abdominal Exam: non-tender, soft Neurologic Exam: alert, oriented x 3, sensation nml, No motor deficits Skin Exam: normal color, warm, dry SpO2: 97 - Course Nursing assessment & vital signs reviewed: Yes - Progress Progress: unchanged - Departure Departure Disposition: Home Clinical Impression: Dental caries Condition: Stable Critical Care Time: No Referrals: ANNELIESE LEZAMA NP [Primary Care Provider] - Instructions: Tooth Abscess (DC) Prescriptions: clindamycin HCL [Cleocin HCl] 300 mg PO TID 7 Days #21 cap Lidocaine HCl Viscous [XYLOCAINE HCl Viscous *] 100 ml MM Q4H #100 ml
== END 2020-12-02 18:29 | disposition home or self-care (01) ==
LOC: ED 17:43
DX: K02.9 Dental caries, unspecified (principal)
CPT/HCPCS: 99283

== ENCOUNTER 2020-12-27 19:39 | Emergency (ER) | payer OTHER | END 2020-12-27 21:24 | disposition left against medical advice (07) | LOC: ED 19:39 | DX: Z53.9 Procedure and treatment not carried out, unspecified reason (principal) ==

== ENCOUNTER 2020-12-28 17:25 | Emergency (ER) | payer OTHER ==
[2020-12-28] MEDS ORDERED: TORAdol 30 mg Injection IM ONE (17:37)
[2020-12-28] MEDS ORDERED: TORAdol 30 mg Injection ONE (17:39)
--- NOTE | 2020-12-28 17:47 | ERPHSYRPT ---
- History of Present Illness Time Seen by Provider: 12/28/20 17:39 Source: patient Exam Limitations: no limitations Physician History: Patient is a 35-year-old white female who presents with a complaint of mouth pain. She has been seen in the ER previously and finished a course of clindamycin. She also saw her family doctor and is finished a course of amoxicillin when she thinks she has not done his see her dentist. She request a dental block to be done I explained to her that that relief would only last for 2 to 3 hours. She states that she is not allergic to Toradol and is very adamant that she has not. She does have viscous lidocaine at home but says it d oes not work Timing/Duration: persistent Severity: severe ENT Location: mouth Prearrival Treatment: no prearrival treatment Modifying Factors: Improves With: nothing Associated Symptoms: facial pain/swelling, jaw pain, tooth pain Allergies/Adverse Reactions: promethazine [From Phenergan] Allergy (Verified 12/28/20 17:36) tramadol Allergy (Verified 12/28/20 17:36) diphenhydramine [From Benadryl] Adverse Reaction (Verified 12/28/20 17:36) Home Medications: Gabapentin 100 mg [Neurontin 100 MG] 100 mg PO BID 12/02/20 [History] Insulin Glargine/Lixisenatide [Soliqua 100 Unit-33 Mcg/ml Pen] 45 units SQ HS 12/02/20 [History] Hx Tetanus, Diphtheria Vaccination/Date Given: Yes Hx Influenza Vaccination/Date Given: No Hx Pneumococcal Vaccination/Date Given: No Travel Risk - Vaccine Status Have you recieved a Covid-19 vaccination: No - Review of Systems Constitutional: No Fever, No Chills Eyes: No Symptoms Ears, Nose, & Throat: No Symptoms, Mouth Pain, Loose Teeth Respiratory: No Cough, No Dyspnea Cardiac: No Chest Pain, No Edema, No Syncope Abdominal/Gastrointestinal: No Abdominal Pain, No Nausea, No Vomiting, No Diarrhea Genitourinary Symptoms: No Dysuria Musculoskeletal: No Back Pain, No Neck Pain Skin: No Rash Neurological: No Dizziness, No Focal Weakness, No Sensory Changes Psychological: No Symptoms Endocrine: No Symptoms All Other Systems: Reviewed and Negative - Past Medical History Pertinent Past Medical History: Yes Neurological History: No Pertinent History ENT History: No Pertinent History Cardiac History: No Pertinent History Respiratory History: No Pertinent History Endocrine Medical History: Diabetes Type II Musculoskeletal History: No Pertinent History GI Medical History: Gallbladder Disease History: No Pertinent History Psycho-Social History: Anxiety, Depression Female Reproductive Disorders: No Pertinent History Other Medical History: legally blind - Past Surgical History Past Surgical History: Yes Neuro Surgical History: No Pertinent History Cardiac: No Pertinent History Respiratory: No Pertinent History Gastrointestinal: No Pertinent History Genitourinary: No Pertinent History Musculoskeletal: No Pertinent History Female Surgical History: Section, Tubal Ligation - Social History Smoking Status: Current every day smoker How long have you smoked: 15 years Exposure to second hand smoke: Yes Alcohol Use: None Drug Use: none Patient Lives Alone: No - Physical Exam General Appearance: no apparent distress, alert Eye Exam: bilateral eye: PERRL, EOMI Nasal Exam: normal inspection Throat Exam: pharynx normal, dental tenderness (Multiple carious teeth decayed to the gums.), moist mucus membranes, No tonsillar exudate Neck Exam: supple Cardiovascular/Respiratory Exam: normal breath sounds, regular rate/rhythm Abdominal Exam: non-tender, soft Neurologic Exam: alert, oriented x 3, sensation nml, No motor deficits Skin Exam: normal color, warm, dry SpO2 Interpretation: normal O2 Delivery: Room Air - Course Nursing assessment & vital signs reviewed: Yes Ordered Tests: Medication Summary Discontinued Medications Generic Name Dose Route Start Last Admin Trade Name Waleq PRN Reason Stop Dose Admin Ketorolac Tromethamine 60 mg 12/28/20 17:37 Toradol 30 Mg Injection IM 12/28/20 17:38 STAT ONE - Progress Progress: unchanged - Departure Departure Disposition: Home Clinical Impression: Chronic dental pain Condition: Stable Critical Care Time: No Referrals: AMEE LOERA MD [Primary Care Provider] - Instructions: Tooth Abscess (DC) Prescriptions: Cefdinir 300 mg PO BID 7 Days #14 cap Diclofenac Sodium 50 mg [Voltaren 50 mg] 50 mg PO Q8H 10 Days #30
[2020-12-28 17:51] VITALS: BP 141/94; PULSE 94; O2SAT 99
== END 2020-12-28 17:55 | disposition home or self-care (01) ==
LOC: ED 17:25
DX: K08.89 Other specified disorders of teeth and supporting structures (principal)
CPT/HCPCS: 96372; 99283; J1885

== ENCOUNTER 2021-04-21 12:38 | Emergency (ER) | payer OTHER ==
[2021-04-21 12:52] VITALS: BP 152/97; PULSE 87; O2SAT 99
--- NOTE | 2021-04-21 12:55 | ERPHSYRPT ---
- History of Present Illness Time Seen by Provider: 04/21/21 12:55 Source: patient Exam Limitations: no limitations Patient Subjective Stated Complaint: Pt had 5 teeth removed on the joyce top on Sunday and states that she wasn't given an antibiotic and she has yellow puss c oming out of her gums and has pain Triage Nursing Assessment: Pt was brought to the ER by her grandmother, hypertensive, rates pain as 7/10, reports calling the dentist and they said that they would call an antibiotic in but they have not done so, she said she went to [facility] in [place], no other problems at this time Physician History: This is a 35-year-old white female who is diabetic and recently had several teeth pulled in the left upper molar region. Patient is concerned that she is diabetic and was not given a prescription for antibiotics. She noticed that she has yellow area in the sites where the teeth were pulled and was concerned about infection. Patient has not had a fever. She is taking ibuprofen and Tylenol for pain control. She is primarily here to obtain a prescription for antibiotics. She has had chronic problems with poor dentition. She has been on clindamycin, amoxicillin and Keflex in the past. She states that Keflex works the best for her. Timing/Duration: days Severity: mild ENT Location: dental Prearrival Treatment: over the counter meds Associated Symptoms: tooth pain (Postoperative) Allergies/Adverse Reactions: ketorolac [From Toradol] Allergy (Verified 04/21/21 12:52) promethazine [From Phenergan] Allergy (Verified 12/28/20 17:36) tramadol Allergy (Verified 12/28/20 17:36) diphenhydramine [From Benadryl] Adverse Reaction (Verified 12/28/20 17:36) Home Medications: Gabapentin 100 mg [Neurontin 100 MG] 100 mg PO BID 12/02/20 [History] Insulin Glargine/Lixisenatide [Soliqua 100 Unit-33 Mcg/ml Pen] 40 units SQ BID 12/02/20 [History] PANTOPRAZOLE 40 mg Tablet [Protonix 40MG Tablet] 40 mg PO DAILY 04/21/21 [History] Hx Tetanus, Diphtheria Vaccination/Date Given: Yes Hx Influenza Vaccination/Date Given: No Hx Pneumococcal Vaccination/Date Given: No Travel Risk - International Travel Have you traveled outside of the country in past 3 weeks: No - Coronavirus Screening Are you exhibiting any of the following symptoms?: No Close contact with a COVID-19 positive Pt in past 14-21 Days: No - Vaccine Status Have you recieved a Covid-19 vaccination: No - Review of Systems Constitutional: No Symptoms Eyes: No Symptoms Ears, Nose, & Throat: Other (Dental pain and yellow tissue) Respiratory: No Symptoms Cardiac: No Symptoms Abdominal/Gastrointestinal: No Symptoms Genitourinary Symptoms: No Symptoms Musculoskeletal: No Symptoms Skin: No Symptoms Neurological: No Symptoms Psychological: No Symptoms Endocrine: No Symptoms Hematologic/Lymphatic: No Symptoms Immunological/Allergic: No Symptoms All Other Systems: Reviewed and Negative - Past Medical History Pertinent Past Medical History: Yes Neurological History: No Pertinent History, Migraines ENT History: No Pertinent History Cardiac History: No Pertinent History Respiratory History: No Pertinent History Endocrine Medical History: Diabetes Type II Musculoskeletal History: Fractures GI Medical History: Gallbladder Disease History: No Pertinent History Psycho-Social History: Anxiety, Depression Female Reproductive Disorders: No Pertinent History Other Medical History: Hx of finger fx - Past Surgical History Past Surgical History: Yes Neuro Surgical History: No Pertinent History Cardiac: No Pertinent History Respiratory: No Pertinent History Gastrointestinal: No Pertinent History Genitourinary: No Pertinent History Musculoskeletal: No Pertinent History Female Surgical History: Section, Tubal Ligation - Social History Smoking Status: Current every day smoker How long have you smoked: 15 years Exposure to second hand smoke: Yes Alcohol Use: None Drug Use: none Patient Lives Alone: No - Female History Hx Now: No (tubal) - Nursing Vital Signs Nursing Vital Signs: Initial Vital Signs Temperature 98.3 F 04/21/21 12:44 Pulse Rate 87 04/21/21 12:44 Blood Pressure 152/97 04/21/21 12:44 O2 Sat by Pulse Oximetry 99 04/21/21 12:44 Pain Scale Pain Intensity 7 - Physical Exam General Appearance: no apparent distress, alert, anxiety Eye Exam: bilateral eye: normal inspection, PERRL, EOMI Ear Exam: bilateral ear: auricle normal Nasal Exam: normal inspection Throat Exam: pharynx normal, dental tenderness (Tenderness in the post tooth extraction areas with associated fibrinous exudate. Left upper molars), moist mucus membranes Neck Exam: normal inspection, non-tender, supple, full range of motion, trachea midline Cardiovascular/Respiratory Exam: chest non-tender, no respiratory distress Abdominal Exam: non-tender Neurologic Exam: alert, oriented x 3, cooperative, dice table operator II-XII nml as tested, normal mood/affect, nml cerebellar function, nml station & gait, sensation nml Skin Exam: normal color, warm, dry SpO2 Interpretation: normal SpO2: 99 O2 Delivery: Room Air - Course Nursing assessment & vital signs reviewed: Yes - Progress Progress: unchanged Counseled pt/family regarding: diagnosis, need for follow-up - Departure Departure Disposition: Home Clinical Impression: Dental caries, Post operative infected tooth socket Condition: Stable Critical Care Time: No Referrals: AMEE LOERA MD [Primary Care Provider] - Follow up/PCP as directed Additional Instructions: Take your antibiotics as prescribed. Call your dentist today and make them aware of your concerns. Use Tylenol and ibuprofen for dental pain control Prescriptions: Cephalexin Mh 500 mg [Keflex 500 mg] 500 mg PO TID #15 cap
== END 2021-04-21 13:25 | disposition home or self-care (01) ==
LOC: ED 12:38
DX: K04.7 Periapical abscess without sinus (principal); K02.9 Dental caries, unspecified; E11.9 Type 2 diabetes mellitus without complications; Z79.4 Long term (current) use of insulin; Z72.0 Tobacco use; Z79.899 Other long term (current) drug therapy
CPT/HCPCS: 99283

== ENCOUNTER 2021-09-04 17:55 | Emergency (ER) | payer OTHER ==
[2021-09-04] MEDS ORDERED: Zofran 4 MG/2 ML VIAL IV ONE ×2 (18:17→19:06)
[2021-09-04] MEDS ORDERED: Sodium Chloride 0.9% 1000 ML 1,000 ML IV STA (18:17)
[2021-09-04] MEDS ORDERED: Sodium Chloride 0.9% 1000 ML 1,000 ML ONE (18:18)
[2021-09-04] MEDS ORDERED: Zofran 4 MG/2 ML VIAL ONE ×2 (18:18→19:13)
--- NOTE | 2021-09-04 18:23 | ERPHSYRPT ---
- History of Present Illness Historian: patient Exam Limitations: no limitations Patient Subjective Stated Complaint: pt reports vomiting starting early this morning, states she has been exposed to sick family members, pt states she is unable to keep any of her home medications down. Triage Nursing Assessment: pt is aox3, pupils perrl, afebrile, resps easy and non labored, cap refill < 3 seconds, radial pulses strong and equal, pt skin pink warm dry. abd soft non tender, bowel sounds present normoactive. Physician History: 36 yo wf w N/V since 2AM. Pt states that she has been around her niece's/nephews who have been having N/V. She states that she wants to stop vomiting so that she cantake her Gabapentin/Maybeury. Pt denies abdominal pain but has some pelvic cramping due to her period. Fever/chills/diarrhea/melena/hematochezia/dysuria/he maturia/chest pain all denied. Timing/Duration: other (2:00AM) Activities at Onset: rest Quality: other (No pain) Abdominal Pain Onset Location: suprapubic (Cramping due to her period) Pain Radiation: no radiation Severity of Pain-Max: mild Severity of Pain-Current: mild Modifying Factors: Improves With: nothing Associated Symptoms: nausea, vomiting Previous symptoms: same symptoms as today Allergies/Adverse Reactions: ketorolac [From Toradol] Allergy (Verified 09/04/21 18:15) promethazine [From Phenergan] Allergy (Verified 09/04/21 18:15) tramadol Allergy (Verified 09/04/21 18:15) diphenhydramine [From Benadryl] Adverse Reaction (Verified 09/04/21 18:15) Home Medications: Gabapentin [Neurontin 100 MG] 100 mg PO BID 12/02/20 [History] Insulin Glargine/Lixisenatide [Soliqua 100 Unit-33 Mcg/ml Pen] 40 units SQ BID 12/02/20 [History] PANTOPRAZOLE 40 mg Tablet [Protonix 40MG Tablet] 40 mg PO DAILY 04/21/21 [History] Hx Tetanus, Diphtheria Vaccination/Date Given: Yes Hx Influenza Vaccination/Date Given: No Hx Pneumococcal Vaccination/Date Given: No Immunizations Up to Date: Yes Travel Risk - International Travel Have you traveled outside of the country in past 3 weeks: No - Coronavirus Screening Are you exhibiting any of the following symptoms?: No Close contact with a COVID-19 positive Pt in past 14-21 Days: No - Vaccine Status Have you recieved a Covid-19 vaccination: No - Review of Systems Constitutional: No Symptoms Eyes: No Symptoms Ears, Nose, & Throat: No Symptoms Respiratory: No Symptoms Cardiac: No Symptoms Abdominal/Gastrointestinal: No Symptoms, Nausea, Vomiting Genitourinary Symptoms: No Symptoms Musculoskeletal: No Symptoms Skin: No Symptoms Neurological: No Symptoms Psychological: No Symptoms Endocrine: No Symptoms Hematologic/Lymphatic: No Symptoms Immunological/Allergic: No Symptoms - Past Medical History Pertinent Past Medical History: Yes Neurological History: Migraines ENT History: No Pertinent History Cardiac History: No Pertinent History Respiratory History: No Pertinent History Endocrine Medical History: Diabetes Type II Musculoskeletal History: No Pertinent History GI Medical History: Gallbladder Disease History: No Pertinent History Psycho-Social History: Anxiety, Depression Female Reproductive Disorders: No Pertinent History Other Medical History: 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 CARPAL TUNNEL BILATERALLY. - Past Surgical History Past Surgical History: Yes Neuro Surgical History: No Pertinent History Cardiac: No Pertinent History Respiratory: No Pertinent History Gastrointestinal: No Pertinent History Genitourinary: No Pertinent History Musculoskeletal: No Pertinent History Female Surgical History: Section, Tubal Ligation - Social History Smoking Status: Current every day smoker How long have you smoked: 15 years Exposure to second hand smoke: Yes Alcohol Use: None Drug Use: none Patient Lives Alone: No Significant Family History: no pertinent family hx - Female History Hx Last Menstrual Period: 09/04/21 tubal Hx Now: No - Nursing Vital Signs Nursing Vital Signs: Initial Vital Signs Temperature 98.8 F 09/04/21 18:01 Pulse Rate 112 H 09/04/21 18:01 Respiratory Rate 18 09/04/21 18:01 Blood Pressure 127/96 09/04/21 18:01 O2 Sat by Pulse Oximetry 98 09/04/21 18:01 Pain Scale Pain Intensity 9 Tachycardic - Physical Exam General Appearance: no apparent distress Eye Exam: PERRL/EOMI, eyes nml inspection Ears, Nose, Throat Exam: normal ENT inspection, TMs normal, pharynx normal, moist mucous membranes Neck Exam: normal inspection, non-tender, supple, full range of motion, No meningismus, No mass, No Brudzinski, No Kernig's, No carotid bruit Respiratory Exam: normal breath sounds, lungs clear, airway intact Cardiovascular Exam: normal peripheral pulses, tachycardia (Mild), capillary refill <2 sec, No murmur Gastrointestinal/Abdomen Exam: soft, normal bowel sounds, No tenderness Back Exam: normal inspection, normal range of motion, No CVA tenderness, No vertebral tenderness Extremity Exam: normal inspection, normal range of motion Neurologic Exam: alert, oriented x 3, cooperative, architecture drafter II-XII nml as tested, normal mood/affect, nml cerebellar function, nml station & gait, sensation nml Skin Exam: normal color, warm, dry, No rash Lymphatic Exam: No adenopathy SpO2 Interpretation: normal SpO2: 98 O2 Delivery: Room Air - Course Nursing assessment & vital signs reviewed: Yes Ordered Tests: Active Orders 24 hr Category Date Time Status POCT GLUCOSE Stat Lab 09/04/21 18:24 Completed Medication Summary Discontinued Medications Generic Name Dose Route Start Last Admin Trade Name Cheli PRN Reason Stop Dose Admin Hydrocodone Bitart/Acetaminophen 1 tablet 09/04/21 19:39 09/04/21 19:42 Hydrocodone/Acetamin 10-325 Mg Tablet PO 09/04/21 19:40 1 tablet STAT ONE Administration Sodium Chloride 1,000 mls @ 999 mls/hr 09/04/21 18:17 09/04/21 19:34 Sodium Chloride 0.9% 1000 Ml IV 09/04/21 19:17 Infused .Q1H1M STA Infusion Sodium Chloride Confirm 09/04/21 18:18 Sodium Chloride 0.9% 1000 Ml Administered 09/04/21 18:19 Dose 1,000 mls @ ud .ROUTE .STK-MED ONE Ondansetron HCl 4 mg 09/04/21 18:17 09/04/21 18:20 Ondansetron Hcl 4 Mg/2 Ml Vial IV 09/04/21 18:18 4 mg STAT ONE Administration Ondansetron HCl Confirm 09/04/21 18:18 Ondansetron Hcl 4 Mg/2 Ml Vial Administered 09/04/21 18:19 Dose 4 mg .ROUTE .STK-MED ONE Ondansetron HCl 4 mg 09/04/21 19:06 09/04/21 19:14 Ondansetron Hcl 4 Mg/2 Ml Vial IV 09/04/21 19:07 4 mg STAT ONE Administration Ondansetron HCl Confirm 09/04/21 19:13 Ondansetron Hcl 4 Mg/2 Ml Vial Administered 09/04/21 19:14 Dose 4 mg .ROUTE .STK-MED ONE Lab/Rad Data: Laboratory Results 09/04/21 Range/Units 18:24 POC Glucometer 239 H (74 to 106) mg/dL - Progress Progress: improved Progress Note: 09/04/21 19:49 1L NS 4mg IV Zofran x2 w mild-mod improvement Norco10 po x1 09/04/21 23:07 Pt stated that she was better and ready to go home Counseled pt/family regarding: diagnosis, need for follow-up - Departure Departure Disposition: Home Clinical Impression: Nausea & vomiting Condition: Stable Critical Care Time: No Referrals: AMEE LOERA MD [Primary Care Provider] - Follow up/PCP as directed Instructions: Nausea and Vomiting, Adult (DC) Additional Instructions: Fluids Zofran for nausea/vomiting Follow up with your family MD in 1-2 days Return to ER for increasing abdominal pain or inability to hold down fluids Prescriptions: Ondansetron ODT 4 MG [Zofran Odt 4 mg] 4 mg PO Q6H PRN PRN #10 tablet PRN Reason: Nausea
[2021-09-04 19:39] VITALS: BP 140/100; PULSE 95
[2021-09-04] MEDS ORDERED: HYDROCODONE-ACETAMIN 10-325 MG PO ONE (19:39)
[2021-09-04 19:53] VITALS: O2SAT 98
== END 2021-09-04 20:00 | disposition home or self-care (01) ==
LOC: ED 17:55
DX: R11.2 Nausea with vomiting, unspecified (principal); E11.9 Type 2 diabetes mellitus without complications; Z72.0 Tobacco use; Z79.4 Long term (current) use of insulin; Z79.899 Other long term (current) drug therapy; Z28.310 Unvaccinated for COVID-19
CPT/HCPCS: 36000; 82947; 96374; 99284; J2405; A9270-GY

== ENCOUNTER 2022-01-11 16:42 | Observation (INO) | payer OTHER ==
[2022-01-11] MEDS ORDERED: Sodium Chloride 0.9% 1000 ML 1,000 ML IV STA ×2 (17:06→17:08)
[2022-01-11] MEDS ORDERED: Zofran 4 MG/2 ML VIAL IV ONE (17:06)
[2022-01-11] MEDS ORDERED: Hydromorphone 1 mg/ml Injection IV ONE (17:08)
[2022-01-11] MEDS ORDERED: BENADRYL 50 MG/ML IV ONE (17:08)
[2022-01-11 17:37] LABS: Absolute Neutrophil Ct (ANC) 10.93 x10^3/uL (1.4-6.9); Basophil (Absolute #) 0.05 x10^3/uL (0-0.4); Eosinophil % 1.1 % (0.00-5.0); Eosinophil (Absolute #) 0.17 x10^3/uL (0-0.5); Hemoglobin 16.7 g/dL (12.0-16.0); Lymphocyte (Absolute #) 2.91 x10^3/uL (1.0-4.6); Lymphocytes % 18.6 % (24.0-44.0); Mean Cell Volume 82.7 fL (78-100); Mean Corpuscular Hemoglobin 29.4 pg (26-32); Mean Corpuscular Hgb Concent. 35.5 g/dL (32-36); Mean Platelet Volume 9.3 fL (7.5-11.0); Monocyte (Absolute #) 1.47 x10^3/uL (0.0-1.3); Monocytes % 9.4 % (0.0-12.0); Platelet Count 338 x10^3/uL (150-450); Red Blood Count 5.68 x10^6/uL (4.1-5.4); Red Cell Distribution Width 11.9 % (11.5-14.0); White Blood Count 15.6 x10^3/uL (4.0-10.5)
[2022-01-11] MEDS ORDERED: Zofran 4 MG/2 ML VIAL ONE (17:50)
[2022-01-11] MEDS ORDERED: BENADRYL 50 MG/ML ONE (17:51)
[2022-01-11 17:52] LABS: AMYLASE 77 U/L (30-110); LIPASE 125 U/L (23-300)
[2022-01-11] MEDS ORDERED: Sodium Chloride 0.9% 1000 ML 2,000 ML ONE (17:53)
[2022-01-11] MEDS ORDERED: Hydromorphone 1 mg/ml Injection ONE (17:53)
[2022-01-11 17:54] LABS: ALBUMIN 4.3 g/dL (3.5-5.0); ALKALINE PHOSPHATASE 114 U/L (38-126); ANION GAP 17.9 MEQ/L (5-15); BLOOD UREA NITROGEN 32 mg/dL (7-17); CHLORIDE 71 mmol/L (98-107); Calcium 9.3 mg/dL (8.4-10.2); Carbon Dioxide 36 mmol/L (22-30); Creatinine 1 0.85 mg/dL (0.52-1.04); EST GLOMERULAR FILTRATION RATE > 60.0 ML/MIN; ETHYL ALCOHOL < 10 mg/dL (0-10); Glucose 335 mg/dL (74-106); SGOT/AST 24 U/L (14-36); SGPT/ALT 21 U/L (0-35); SODIUM 122 mmol/L (137-145); Total Protein 8.1 g/dL (6.3-8.2)
--- NOTE | 2022-01-11 18:14 | ERPHSYRPT ---
- History of Present Illness Time Seen by Provider: 01/11/22 16:50 Source: patient Exam Limitations: no limitations Patient Subjective Stated Complaint: C/O N/V since Sunday Triage Nursing Assessment: Patient brought back to ED in a W/C. She is alert and oriented. Patient moving around in the bed a lot; states she can't get comfortable. No SOB. Skin is dry and cool. Physician History: Patient is here with nausea and vomiting. Patient states that she is a diabetic. She is on insulin. She has not felt well for the past 5 days prior to arrival. She has no other falls or trauma. States that she does have a history of nausea and vomiting. She is unable to keep down her pain medication or other medication. Patient is slightly tachycardic upon arrival. Somewhat mildly low BP. Patient does not have a history of heart issues. Patient states that she does take chronic narcotics. She feels that she is in a mild withdrawal because she has not been able to keep any down asked 5 days. She complains of no headaches, fever, signs or symptoms of encephalitis. No nuchal rigidity. Timing/Duration: day(s) (5 days ) Severity: moderate Modifying Factors: Improves With: other Associated Symptoms: nausea, vomiting, other ("pain all over") Allergies/Adverse Reactions: ketorolac [From Toradol] Allergy (Verified 01/11/22 16:54) promethazine [From Phenergan] Allergy (Verified 01/11/22 16:54) tramadol Allergy (Verified 01/11/22 16:54) diphenhydramine [From Benadryl] Adverse Reaction (Verified 01/11/22 16:54) Home Medications: Insulin Detemir [Levemir] 80 units SQ HS 01/11/22 [History] Propranolol HCl [Inderal ] 60 mg PO BID 01/11/22 [History] Hx Tetanus, Diphtheria Vaccination/Date Given: Yes Hx Influenza Vaccination/Date Given: No Hx Pneumococcal Vaccination/Date Given: No Immunizations Up to Date: Yes Travel Risk - International Travel Have you traveled outside of the country in past 3 weeks: No - Coronavirus Screening Are you exhibiting any of the following symptoms?: Yes Symptoms: Vomiting/Diarrhea, Headaches/Body Aches/Fatigue Close contact with a COVID-19 positive Pt in past 14-21 Days: No - Vaccine Status Have you recieved a Covid-19 vaccination: No - Review of Systems Constitutional: Malaise, No Fever, No Chills Eyes: No Symptoms Ears, Nose, & Throat: No Symptoms Respiratory: No Cough, No Dyspnea Cardiac: No Chest Pain, No Edema, No Syncope Abdominal/Gastrointestinal: Nausea, Vomiting, No Abdominal Pain, No Diarrhea Genitourinary Symptoms: No Dysuria Musculoskeletal: No Back Pain, No Neck Pain Skin: No Rash Neurological: No Dizziness, No Focal Weakness, No Sensory Changes Psychological: No Symptoms Endocrine: No Symptoms All Other Systems: Reviewed and Negative - Past Medical History Pertinent Past Medical History: Yes Neurological History: Migraines ENT History: No Pertinent History Cardiac History: No Pertinent History Respiratory History: No Pertinent History Endocrine Medical History: Diabetes Type II Musculoskeletal History: No Pertinent History GI Medical History: Gallbladder Disease History: No Pertinent History Psycho-Social History: Anxiety, Depression Female Reproductive Disorders: No Pertinent History Other Medical History: 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 CARPAL TUNNEL BILATERALLY. - Past Surgical History Past Surgical History: Yes Neuro Surgical History: No Pertinent History Cardiac: No Pertinent History Respiratory: No Pertinent History Gastrointestinal: No Pertinent History Genitourinary: No Pertinent History Musculoskeletal: No Pertinent History Female Surgical History: Section, Tubal Ligation - Social History Smoking Status: Current every day smoker How long have you smoked: "forever" Exposure to second hand smoke: Yes Alcohol Use: None Drug Use: none Patient Lives Alone: No Significant Family History: no pertinent family hx - Female History Hx Now: No - Nursing Vital Signs Nursing Vital Signs: Initial Vital Signs Temperature 97 F 01/11/22 16:55 Pulse Rate 127 H 01/11/22 16:55 Respiratory Rate 18 01/11/22 16:55 Blood Pressure 91/83 01/11/22 16:55 O2 Sat by Pulse Oximetry 97 01/11/22 16:55 Pain Scale Pain Intensity 0 - Physical Exam General Appearance: no apparent distress, alert Eye Exam: PERRL/EOMI, eyes nml inspection Ears, Nose, Throat Exam: normal ENT inspection, TMs normal, pharynx normal, moist mucous membranes Neck Exam: normal inspection, non-tender, supple, full range of motion Respiratory Exam: normal breath sounds, lungs clear, No respiratory distress Cardiovascular Exam: normal heart sounds, normal peripheral pulses, other (Tachycardia, mildly low BP) Gastrointestinal/Abdomen Exam: soft, normal bowel sounds, No tenderness, No mass Back Exam: normal inspection, normal range of motion, No CVA tenderness, No vertebral tenderness Extremity Exam: normal inspection, normal range of motion, pelvis stable Neurologic Exam: alert, oriented x 3, cooperative, normal mood/affect, nml cerebellar function, nml station & gait, sensation nml, No motor deficits Skin Exam: normal color, warm, dry, No rash Lymphatic Exam: No adenopathy SpO2: 100 - Course Nursing assessment & vital signs reviewed: Yes EKG Interpreted by Me: Sinus Rhythm Ordered Tests: Active Orders 24 hr Category Date Time Status Admit as Inpatient ROUTINE Care 01/11/22 19:02 Ordered Rod Greaser STAT Care 01/11/22 17:07 Active Code Status Order ROUTINE Care 01/11/22 19:02 Ordered EKG-ER Only STAT Care 01/11/22 17:06 Active IV Care Q6H Care 01/11/22 19:02 Ordered IV Insertion STAT Care 01/11/22 17:06 Active House Regular Diet Diet 01/12/22 Breakfast Ordered CHEST 1 VIEW (PORTABLE) Stat Exams 01/11/22 18:47 Taken AMYLASE Stat Lab 01/11/22 17:30 Completed BMP AM.LAB Lab 01/12/22 04:00 Ordered CBC W DIFF AM.LAB Lab 01/12/22 04:00 Ordered CBC W DIFF Stat Lab 01/11/22 17:30 Completed CMP Stat Lab 01/11/22 17:30 Completed CULTURE,URINE Stat Lab 01/11/22 18:16 Received ETHYL ALCOHOL Stat Lab 01/11/22 17:30 Completed HCG QUALITATIVE,SERUM Stat Lab 01/11/22 17:30 Completed LIPASE Stat Lab 01/11/22 17:30 Completed MAGNESIUM Stat Lab 01/11/22 17:30 Completed TROPONIN Q4H Lab 01/11/22 17:30 Completed TROPONIN Q4H Lab 01/11/22 21:15 Ordered TROPONIN Q4H Lab 01/12/22 01:15 Ordered UA W/RFX CULTURE Stat Lab 01/11/22 18:17 Completed Medication Summary Discontinued Medications Generic Name Dose Route Start Last Admin Trade Name Freq PRN Reason Stop Dose Admin Diphenhydramine HCl 25 mg 01/11/22 17:08 01/11/22 17:58 Diphenhydramine Hcl 50 Mg/Ml Vial IV 01/11/22 17:09 25 mg STAT ONE Administration Diphenhydramine HCl Confirm 01/11/22 17:51 Diphenhydramine Hcl 50 Mg/Ml Vial Administered 01/11/22 17:52 Dose 50 mg .ROUTE .STK-MED ONE Droperidol 1.25 mg 01/11/22 17:06 01/11/22 17:59 Droperidol 5 Mg/2 Ml Vial IV 01/11/22 17:07 1.25 mg STAT ONE Administration Droperidol Confirm 01/11/22 17:50 Droperidol 5 Mg/2 Ml Vial Administered 01/11/22 17:51 Dose 5 mg .ROUTE .STK-MED ONE Hydromorphone HCl 0.5 mg 01/11/22 17:08 01/11/22 17:59 Hydromorphone 1 Mg/1ml Inj 1 Mg/Ml Syringe IV 01/11/22 17:09 0.5 mg STAT ONE Administration Hydromorphone HCl Confirm 01/11/22 17:53 Hydromorphone 1 Mg/1ml Inj 1 Mg/Ml Syringe Administered 01/11/22 17:54 Dose 1 mg .ROUTE .STK-MED ONE Sodium Chloride 1,000 mls @ 999 mls/hr 01/11/22 17:06 01/11/22 17:57 Sodium Chloride 0.9% 1000 Ml IV 01/11/22 18:06 999 mls/hr .Q1H1M STA Administration Sodium Chloride 1,000 mls @ 999 mls/hr 01/11/22 17:08 01/11/22 17:58 Sodium Chloride 0.9% 1000 Ml IV 01/11/22 18:08 999 mls/hr .Q1H1M STA Administration Sodium Chloride Confirm 01/11/22 17:53 Sodium Chloride 0.9% 1000 Ml Administered 01/11/22 17:54 Dose 2,000 mls @ ud .ROUTE .STK-MED ONE Ondansetron HCl 4 mg 01/11/22 17:06 01/11/22 17:58 Ondansetron Hcl 4 Mg/2 Ml Vial IV 01/11/22 17:07 4 mg STAT ONE Administration Ondansetron HCl Confirm 01/11/22 17:50 Ondansetron Hcl 4 Mg/2 Ml Vial Administered 01/11/22 17:51 Dose 4 mg .ROUTE .STK-MED ONE Potassium Chloride 20 meq 01/11/22 18:23 01/11/22 18:43 Potassium Chloride Tab 10 Meq Tab PO 01/11/22 18:24 20 meq STAT ONE Administration Potassium Chloride Confirm 01/11/22 18:41 Potassium Chloride Tab 10 Meq Tab Administered 01/11/22 18:42 Dose 20 meq PO .STK-MED ONE Lab/Rad Data: Laboratory Result Diagrams 01/11/22 17:30 01/11/22 17:30 Laboratory Results 01/11/22 01/11/22 01/11/22 Range/Units 18:17 17:30 17:30 WBC (4.0-10.5) x10^3/uL RBC (4.1-5.4) x10^6/uL Hgb (12.0-16.0) g/dL Hct (35-47) % MCV (78-100) fL MCH (26-32) pg MCHC (32-36) g/dL RDW (11.5-14.0) % Plt Count (150-450) x10^3/uL MPV (7.5-11.0) fL Gran % (36.0-66.0) % Immature Gran % (Auto) (0.00-0.4) % Nucleat RBC Rel Count (0.00-0.1) % Eos # (Auto) (0-0.5) x10^3/uL Immature Gran # (Auto) (0.00-0.03) x10^3u/L Absolute Lymphs (auto) (1.0-4.6) x10^3/uL Absolute Monos (auto) (0.0-1.3) x10^3/uL Absolute Nucleated RBC (0.00-0.01) x10^3u/L Lymphocytes % (24.0-44.0) % Monocytes % (0.0-12.0) % Eosinophils % (0.00-5.0) % Basophils % (0.0-0.4) % Absolute Granulocytes (1.4-6.9) x10^3/uL Basophils # (0-0.4) x10^3/uL Sodium (137-145) mmol/L Potassium (3.5-5.1) mmol/L Chloride (98-107) mmol/L Carbon Dioxide (22-30) mmol/L Anion Gap (5-15) MEQ/L BUN (7-17) mg/dL Creatinine (0.52-1.04) mg/dL Estimated GFR ML/MIN Glucose (74-106) mg/dL Calcium (8.4-10.2) mg/dL Magnesium (1.6-2.3) mg/dL Total Bilirubin (0.2-1.3) mg/dL AST (14-36) U/L ALT (0-35) U/L Alkaline Phosphatase (38-126) U/L Troponin I < 0.012 (0.000-0.034) ng/mL Serum Total Protein (6.3-8.2) g/dL Albumin (3.5-5.0) g/dL Amylase 77 (30-110) U/L Lipase 125 (23-300) U/L Serum , Qual (Negative) Urinalys Dipstick Clnc MAIN LAB Urine Color BROWN (YELLOW) Urine Appearance CLOUDY (CLEAR) Urine pH 5.5 (5-6) Ur Specific [place] 1.020 (1.005-1.025) POC Urine Protein Conf 100 (Negative) Urine Ketones >=160 (NEGATIVE) Urine Nitrite NEGATIVE (NEGATIVE) Urine Bilirubin SMALL (NEGATIVE) Urine Urobilinogen 0.2 (0-1) mg/dL Urine Leukocytes NEGATIVE (NEGATIVE) Urine WBC (Auto) >100 (0-5) /HPF Urine RBC (Auto) >101 (0-2) /HPF U Epithel Cells (Auto) RARE (FEW) /HPF Urine Bacteria (Auto) NONE (NEGATIVE) /HPF Urine RBC LARGE (0-5) Flip/ul Ur Culture Indicated? ORDERED SEPARATELY Urine Glucose >=1000 (NEGATIVE) mg/dL Ethyl Alcohol (0-10) mg/dL 01/11/22 01/11/22 01/11/22 Range/Units 17:30 17:30 17:30 WBC 15.6 H (4.0-10.5) x10^3/uL RBC 5.68 H (4.1-5.4) x10^6/uL Hgb 16.7 H (12.0-16.0) g/dL Hct 47.0 (35-47) % MCV 82.7 (78-100) fL MCH 29.4 (26-32) pg MCHC 35.5 (32-36) g/dL RDW 11.9 (11.5-14.0) % Plt Count 338 (150-450) x10^3/uL MPV 9.3 (7.5-11.0) fL Gran % 70.0 H (36.0-66.0) % Immature Gran % (Auto) 0.6 H (0.00-0.4) % Nucleat RBC Rel Count 0.0 (0.00-0.1) % Eos # (Auto) 0.17 (0-0.5) x10^3/uL Immature Gran # (Auto) 0.09 H (0.00-0.03) x10^3u/L Absolute Lymphs (auto) 2.91 (1.0-4.6) x10^3/uL Absolute Monos (auto) 1.47 H (0.0-1.3) x10^3/uL Absolute Nucleated RBC 0.00 (0.00-0.01) x10^3u/L Lymphocytes % 18.6 L (24.0-44.0) % Monocytes % 9.4 (0.0-12.0) % Eosinophils % 1.1 (0.00-5.0) % Basophils % 0.3 (0.0-0.4) % Absolute Granulocytes 10.93 H (1.4-6.9) x10^3/uL Basophils # 0.05 (0-0.4) x10^3/uL Sodium 122 L (137-145) mmol/L Potassium 2.6 L* (3.5-5.1) mmol/L Chloride 71 L (98-107) mmol/L Carbon Dioxide 36 H (22-30) mmol/L Anion Gap 17.9 H (5-15) MEQ/L BUN 32 H (7-17) mg/dL Creatinine 0.85 (0.52-1.04) mg/dL Estimated GFR > 60.0 ML/MIN Glucose 335 H (74-106) mg/dL Calcium 9.3 (8.4-10.2) mg/dL Magnesium 2.0 (1.6-2.3) mg/dL Total Bilirubin 1.10 (0.2-1.3) mg/dL AST 24 (14-36) U/L ALT 21 (0-35) U/L Alkaline Phosphatase 114 (38-126) U/L Troponin I (0.000-0.034) ng/mL Serum Total Protein 8.1 (6.3-8.2) g/dL Albumin 4.3 (3.5-5.0) g/dL Amylase (30-110) U/L Lipase (23-300) U/L Serum , Qual NEGATIVE (Negative) Urinalys Dipstick Clnc Urine Color (YELLOW) Urine Appearance (CLEAR) Urine pH (5-6) Ur Specific [place] (1.005-1.025) POC Urine Protein Conf (Negative) Urine Ketones (NEGATIVE) Urine Nitrite (NEGATIVE) Urine Bilirubin (NEGATIVE) Urine Urobilinogen (0-1) mg/dL Urine Leukocytes (NEGATIVE) Urine WBC (Auto) (0-5) /HPF Urine RBC (Auto) (0-2) /HPF U Epithel Cells (Auto) (FEW) /HPF Urine Bacteria (Auto) (NEGATIVE) /HPF Urine RBC (0-5) Flip/ul Ur Culture Indicated? Urine Glucose (NEGATIVE) mg/dL Ethyl Alcohol < 10 (0-10) mg/dL - Progress Progress: improved Progress Note: 01/11/22 18:14 Large differential diagnosis includes DKA, infection, hypovolemia, intractable nausea and vomiting. We will obtain basic labs, fluid resuscitation, nausea medication, some pain control. However patient has no focal abdominal or other pain. 01/11/22 18:24 Patient does appear to be in mild DKA. Patient will need to be admitted to the hospital. However, patient's potassium was 2.6. Therefore we will need to replace the patient's potassium prior to starting an insulin drip. Patient does follow with Dr. Loera. We will contact him for admission. Patient will need very gentle resuscitation with appropriate potassium replacement in the setting of insulin. 01/11/22 19:04 ED critical care statement As staff physician, I have provided critical care. Time: 44 mins Criteria for critical illness: DKA Treatment and management provided include: Coordination of management with ETC care team, consultants, and inpatient care team. [id number] assessment of condition and response to therapy. Review and interpretation of emergent diagnostic testing. Medical chart review and completion. Direction and immediate supervision of the following therapy: Critical care was time spent personally by me on the following activities: blood draw for specimens, development of treatment plan with patient or surrogate, discussions with consultants, discussions with primary provider, interpretation of cardiac output measurements, evaluation of patient's response to treatment, examination of patient, obtaining history from patient or surrogate, ordering and performing treatments and interventions, ordering and review of laboratory studies, ordering and review of radiographic studies, pulse oximetry, re-evaluation of patient's condition and review of old charts. This time was independent of all procedures performed. Kranthi Alcaraz Discussed with : Rossy Will see patient in: hospital (full admit) Counseled pt/family regarding: lab results, diagnosis, need for follow-up - Departure Departure Disposition: Observation Clinical Impression: DKA (diabetic ketoacidosis) Condition: Stable Critical Care Time: Yes Critical Care Time(excluding separately billable procedures): Critical 30-74 mins Referrals: AMEE LOERA MD [Primary Care Provider] - Follow up/PCP as directed
[2022-01-11 18:20] LABS: Potassium 2.6 mmol/L (3.5-5.1)
[2022-01-11] MEDS ORDERED: Klor Con PO ONE ×2 (18:23→18:41)
[2022-01-11 18:44] LABS: Appearance CLOUDY (CLEAR); Bilirubin SMALL (NEGATIVE); Dipstick done @ ? MAIN LAB; Glucose >=1000 mg/dL (NEGATIVE); Ketones >=160 (NEGATIVE); Nitrite NEGATIVE (NEGATIVE); Ph 5.5 (5-6); Protein,Urine Dip 100 (Negative); RBC LARGE Ery/ul (0-5); Urobilinogen 0.2 mg/dL (0-1)
[2022-01-11 18:46] LABS: Epithelial Cells RARE /HPF (FEW); WBC >100 /HPF (0-5)
[2022-01-11 18:47] LABS: RBC >101 /HPF (0-2); Urine Cultured Indicated? ORDERED SEPARATELY
[2022-01-11 19:15] LABS: INFLUENZA A NEGATIVE (NEGATIVE); INFLUENZA B NEGATIVE (NEGATIVE); RESPIRATORY SYNCTIAL VIRUS NEGATIVE (Negative); SARS-CoV-2 Xpert Express NEGATIVE (NEGATIVE)
[2022-01-11] MEDS: Hydromorphone 1 mg/ml Injection IV PRN (20:47)
[2022-01-11] MEDS: Zofran 4 MG/2 ML VIAL IV PRN (20:47)
[2022-01-11] MEDS: Sodium Chloride 0.9% 1000 ML 1,000 ML IV SCH (20:48)
[2022-01-11 22:00] LABS: VBG BASE EXCESS 10.2 (-2.0-2.0); VBG CARBOXYHEMOGLOBIN 4.3 % T HGB (0.0-6.9); VBG HCO3- 33.1 meq/L (22-28); VBG HEMOGLOBIN 14.8; VBG O2 SATURATION 99.2 (95-100); VBG pH 7.56 (7.32-7.42)
[2022-01-11 22:01] LABS: VBG POTASSIUM 2.9 (3.5-5.1)
[2022-01-12] MEDS: Hydromorphone 1 mg/ml Injection IV PRN ×6 (00:40→23:43)
[2022-01-12] MEDS: Lantus Insulin SQ SCH ×2 (00:41→22:00)
[2022-01-12 02:39] LABS: Absolute Neutrophil Ct (ANC) 6.15 x10^3/uL (1.4-6.9); Basophil (Absolute #) 0.03 x10^3/uL (0-0.4); Eosinophil % 2.5 % (0.00-5.0); Eosinophil (Absolute #) 0.25 x10^3/uL (0-0.5); Hematocrit 40.1 % (35-47); Hemoglobin 13.9 g/dL (12.0-16.0); Lymphocyte (Absolute #) 2.57 x10^3/uL (1.0-4.6); Lymphocytes % 25.5 % (24.0-44.0); Mean Cell Volume 84.4 fL (78-100); Mean Corpuscular Hemoglobin 29.3 pg (26-32); Mean Corpuscular Hgb Concent. 34.7 g/dL (32-36); Mean Platelet Volume 9.3 fL (7.5-11.0); Monocyte (Absolute #) 1.03 x10^3/uL (0.0-1.3); Monocytes % 10.2 % (0.0-12.0); Neutrophil % 61.1 % (36.0-66.0); Platelet Count 279 x10^3/uL (150-450); Red Blood Count 4.75 x10^6/uL (4.1-5.4); Red Cell Distribution Width 11.9 % (11.5-14.0); White Blood Count 10.1 x10^3/uL (4.0-10.5)
[2022-01-12 02:51] LABS: ANION GAP 9.2 MEQ/L (5-15); BLOOD UREA NITROGEN 21 mg/dL (7-17); CHLORIDE 86 mmol/L (98-107); Calcium 7.8 mg/dL (8.4-10.2); Carbon Dioxide 36 mmol/L (22-30); Creatinine 1 0.69 mg/dL (0.52-1.04); EST GLOMERULAR FILTRATION RATE > 60.0 ML/MIN; Glucose 207 mg/dL (74-106); SODIUM 129 mmol/L (137-145)
[2022-01-12 02:57] LABS: Potassium 2.7 mmol/L (3.5-5.1)
[2022-01-12] MEDS ORDERED: K-LYTE PO ONE (03:41)
[2022-01-12] MEDS: D5W/0.45NS W/ 20mEq KCl 1000 ML 1,000 ML IV SCH ×2 (03:53→11:18)
[2022-01-12] MEDS: POTASSIUM CHLORIDE 20 mEq IN WATER 100ML 20 MEQ/100 ML BAG IV SCH ×2 (03:53→05:57)
[2022-01-12] MEDS: Zofran 4 MG/2 ML VIAL IV PRN (04:07)
[2022-01-12] MEDS ORDERED: MILK OF MAGNESIA 30 ML ONE (04:13)
[2022-01-12] MEDS ORDERED: MILK OF MAGNESIA 30 ML PO ONE (04:14)
[2022-01-12] MEDS ORDERED: XYLOCAINE VISCOUS 2% 15 ML CUP ONE (04:14)
[2022-01-12] MEDS ORDERED: XYLOCAINE VISCOUS 2% 15 ML CUP PO ONE (04:14)
--- NOTE | 2022-01-12 08:35 | XRAY ---
Indication: Vomiting. Comparison: March 01, 2020 Portable chest again demonstrates normal heart, lungs, and bony thorax.
[2022-01-12] MEDS ORDERED: ROCEPHIN 1 Gm-D5w 50 ml Bag** 1 G/50 ML IVPB IV SCH (10:00)
[2022-01-12] MEDS: HUMALOG SQ PRN ×3 (10:29→22:00)
[2022-01-12] MEDS: Inderal PO SCH ×2 (11:17→21:30)
[2022-01-12] MEDS ORDERED: POTASSIUM CHLORIDE 20 mEq IN WATER 100ML 20 MEQ/100 ML BAG IV ONE (13:00)
[2022-01-12] MEDS ORDERED: Tums EX 750 MG PO PRN (14:58)
[2022-01-12] MEDS ORDERED: ZOFRAN ODT 4 MG PO PRN (17:00)
[2022-01-12] MEDS ORDERED: TIRZEPATIDE 7.5 MG/0.5 ML SQ SCH (17:00)
[2022-01-12] MEDS ORDERED: NORCO 5/325 MG PO PRN (17:00)
[2022-01-12] MEDS ORDERED: MEDICATION INTERVENTION MC SCH (17:30)
--- NOTE | 2022-01-12 17:57 | PCM.HP ---
History of Present Illness - Chief Complaint Chief Complaint: nausea and vomiting for 2-3 days History of Present Illness: is a 36 year old female.Patient is here with nausea and vomiting. Patient states that she is a diabetic. She is on insulin. She has not felt well for the past 5 days prior to arrival. She has no other falls or trauma. States that she does have a history of nausea and vomiting. She is unable to keep down her pain medication or other medication. Patient is slightly tachycardic upon arrival. Somewhat mildly low BP. Patient does not have a history of heart issues. Patient states that she does take chronic narcotics. She feels that she is in a mild withdrawal because she has not been able to keep any down asked 5 days. She complains of no headaches, fever, signs or symptoms of encephalitis. No nuchal rigidity. Timing/Duration: day(s) (5 days ) Severity: moderate Modifying Factors: Improves With: other Associated Symptoms: nausea, vomiting, other ("pain all over") - Review of Systems Constitutional: Malaise, Weakness, No Fever, No Chills Eyes: No Symptoms Ears, Nose, & Throat: No Symptoms Respiratory: No Cough, No Short Of Breath Cardiac: No Chest Pain, No Edema, No Syncope Abdominal/Gastrointestinal: Nausea, Vomiting, No Abdominal Pain, No Diarrhea Genitourinary Symptoms: No Dysuria Musculoskeletal: No Back Pain, No Neck Pain Skin: No Rash Neurological: No Dizziness, No Focal Weakness, No Sensory Changes Psychological: No Symptoms Endocrine: No Symptoms Hematologic/Lymphatic: No Symptoms Immunological/Allergic: No Symptoms Medications & Allergies Home Medications: Home Medication List Ondansetron ODT 4 MG [Zofran Odt 4 mg] 4 mg PO Q6H PRN PRN #10 tablet 09/04/21 [Rx Confirmed 01/11/22] Insulin Detemir [Levemir] 40 units SQ BID 01/11/22 [History Confirmed 01/11/22] Propranolol HCl [Inderal ] 60 mg PO BID 01/11/22 [History Confirmed 01/11/22] Tirzepatide [Mounjaro] 0.5 ml SQ WEEKLY 01/11/22 [History Confirmed 01/12/22] Hydrocodone/Acetaminophen [Hydrocodone-Acetamin 5-325 mg] 1 tab PO Q4-6HPRN PRN MDD 3 01/12/22 [History Confirmed 01/12/22] PANTOPRAZOLE 40 mg Tablet [Protonix 40MG Tablet] 1 tab PO DAILY 01/12/22 [History Confirmed 01/12/22] Allergies/Adverse Reactions: Allergies Allergy/AdvReac Type Severity Reaction Status Date / Time ketorolac [From Toradol] Allergy Verified 01/11/22 16:54 promethazine [From Phenergan] Allergy Verified 01/11/22 16:54 tramadol Allergy Verified 01/11/22 16:54 diphenhydramine AdvReac Verified 01/11/22 16:54 [From Benadryl] - Past Medical History Past Medical History: Yes Neurological History: Migraines ENT History: No Pertinent History Cardiac History: No Pertinent History Respiratory History: No Pertinent History Endocrine Medical History: Diabetes Type II Musculoskelatal History: No Pertinent History GI Medical History: Gallbladder Disease History: No Pertinent History Pyscho-Social History: Anxiety, Depression Reproductive Disorders: No Pertinent History Comment: 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 CARPAL TUNNEL BILATERALLY. - Female History Hx Last Menstrual Period: 01/11/22 Are you now?: No - Past Surgical History Past Surgical History: Yes Neuro Surgical History: No Pertinent History Cardiac History: No Pertinent History Respiratory Surgery: No Pertinent History GI Surgical History: No Pertinent History Genitourinary Surgical Hx: No Pertinent History Musculskeletal Surgical Hx: No Pertinent History Female Surgical History: Section, Tubal Ligation Other Surgical History: 2 c sections - Social History Smoking Status: Current every day smoker How long have you smoked: "forever" Exposure to second hand smoke: Yes Alcohol: None Drug Use: none Significant Family History: no pertinent family hx - Physical Exam Vital Signs: Vital Signs - 24 hr Temp Pulse Resp BP Pulse Ox 01/12/22 16:00 97.7 F 81 16 100/59 99 01/12/22 12:00 97.7 F 93 H 16 106/57 95 01/12/22 08:00 97.7 F 108 H 17 103/56 92 L 01/12/22 04:00 98.1 F 95 H 16 117/72 96 01/12/22 00:00 97.8 F 95 H 16 112/58 95 01/11/22 20:48 97.7 F 85 16 113/66 100 01/11/22 19:05 100 01/11/22 18:16 105 H 125/91 97 General Appearance: mild distress, alert Neurologic Exam: alert, oriented x 3, cooperative, normal mood/affect, nml cerebellar function, nml station & gait, sensation nml, No motor deficits Eye Exam: PERRL/EOMI, eyes nml inspection Ears, Nose, Throat Exam: normal ENT inspection, TMs normal, pharynx normal, moist mucous membranes Neck Exam: normal inspection, non-tender, supple, full range of motion Respiratory Exam: diminished breath sounds, No respiratory distress Cardiovascular Exam: regular rate/rhythm, normal heart sounds, normal peripheral pulses Gastrointestinal/Abdomen Exam: soft, normal bowel sounds, No tenderness, No mass Back Exam: normal inspection, normal range of motion, No CVA tenderness, No vertebral tenderness Extremity Exam: normal inspection, normal range of motion, pelvis stable Skin Exam: normal color, warm, dry, No rash Lymphatic Exam: No adenopathy Results - Labs Lab/Micro Results: Lab Results-Last 24 Hours 01/11/22 01/11/22 01/11/22 Range/Units 17:30 17:30 18:17 WBC (4.0-10.5) x10^3/uL RBC (4.1-5.4) x10^6/uL Hgb (12.0-16.0) g/dL Hct (35-47) % MCV (78-100) fL MCH (26-32) pg MCHC (32-36) g/dL RDW (11.5-14.0) % Plt Count (150-450) x10^3/uL MPV (7.5-11.0) fL Gran % (36.0-66.0) % Immature Gran % (Auto) (0.00-0.4) % Nucleat RBC Rel Count (0.00-0.1) % Eos # (Auto) (0-0.5) x10^3/uL Immature Gran # (Auto) (0.00-0.03) x10^3u/L Absolute Lymphs (auto) (1.0-4.6) x10^3/uL Absolute Monos (auto) (0.0-1.3) x10^3/uL Absolute Nucleated RBC (0.00-0.01) x10^3u/L Lymphocytes % (24.0-44.0) % Monocytes % (0.0-12.0) % Eosinophils % (0.00-5.0) % Basophils % (0.0-0.4) % Absolute Granulocytes (1.4-6.9) x10^3/uL Basophils # (0-0.4) x10^3/uL pO2/FiO2 Ratio % VBG pH (7.32-7.42) VBG pCO2 at Pat Temp (42-55) mm/Hg VBG pO2 at Pat Temp (25-40) mm/Hg VBG HCO3 (22-28) meq/L VBG O2 Sat (Shubham) (95-100) VBG Base Excess (-2.0-2.0) VBG Hemoglobin VBG Carboxyhemoglobin (0.0-6.9) % T HGB POC Potassium (3.5-5.1) Sodium 122 L (137-145) mmol/L Potassium 2.6 L* (3.5-5.1) mmol/L Chloride 71 L (98-107) mmol/L Carbon Dioxide 36 H (22-30) mmol/L Anion Gap 17.9 H (5-15) MEQ/L BUN 32 H (7-17) mg/dL Creatinine 0.85 (0.52-1.04) mg/dL Estimated GFR > 60.0 ML/MIN Glucose 335 H (74-106) mg/dL POC Glucometer (74 to 106) mg/dL Hemoglobin A1c (4.5-6.0) % Calcium 9.3 (8.4-10.2) mg/dL Magnesium 2.0 (1.6-2.3) mg/dL Total Bilirubin 1.10 (0.2-1.3) mg/dL AST 24 (14-36) U/L ALT 21 (0-35) U/L Alkaline Phosphatase 114 (38-126) U/L Troponin I < 0.012 (0.000-0.034) ng/mL Serum Total Protein 8.1 (6.3-8.2) g/dL Albumin 4.3 (3.5-5.0) g/dL Urinalys Dipstick Clnc MAIN LAB Urine Color BROWN (YELLOW) Urine Appearance CLOUDY (CLEAR) Urine pH 5.5 (5-6) Ur Specific [place] 1.020 (1.005-1.025) POC Urine Protein Conf 100 (Negative) Urine Ketones >=160 (NEGATIVE) Urine Nitrite NEGATIVE (NEGATIVE) Urine Bilirubin SMALL (NEGATIVE) Urine Urobilinogen 0.2 (0-1) mg/dL Urine Leukocytes NEGATIVE (NEGATIVE) Urine WBC (Auto) >100 (0-5) /HPF Urine RBC (Auto) >101 (0-2) /HPF U Epithel Cells (Auto) RARE (FEW) /HPF Urine Bacteria (Auto) NONE (NEGATIVE) /HPF Urine RBC LARGE (0-5) Flip/ul Ur Culture Indicated? ORDERED SEPARATELY Urine Glucose >=1000 (NEGATIVE) mg/dL Ethyl Alcohol < 10 (0-10) mg/dL Influenza Type A Ag (NEGATIVE) Influenza Type B Ag (NEGATIVE) RSV (PCR) (Negative) SARS-CoV-2 (PCR) (NEGATIVE) 01/11/22 01/11/22 01/11/22 Range/Units 18:30 21:40 21:55 WBC (4.0-10.5) x10^3/uL RBC (4.1-5.4) x10^6/uL Hgb (12.0-16.0) g/dL Hct (35-47) % MCV (78-100) fL MCH (26-32) pg MCHC (32-36) g/dL RDW (11.5-14.0) % Plt Count (150-450) x10^3/uL MPV (7.5-11.0) fL Gran % (36.0-66.0) % Immature Gran % (Auto) (0.00-0.4) % Nucleat RBC Rel Count (0.00-0.1) % Eos # (Auto) (0-0.5) x10^3/uL Immature Gran # (Auto) (0.00-0.03) x10^3u/L Absolute Lymphs (auto) (1.0-4.6) x10^3/uL Absolute Monos (auto) (0.0-1.3) x10^3/uL Absolute Nucleated RBC (0.00-0.01) x10^3u/L Lymphocytes % (24.0-44.0) % Monocytes % (0.0-12.0) % Eosinophils % (0.00-5.0) % Basophils % (0.0-0.4) % Absolute Granulocytes (1.4-6.9) x10^3/uL Basophils # (0-0.4) x10^3/uL pO2/FiO2 Ratio 21.0 % VBG pH 7.56 H* (7.32-7.42) VBG pCO2 at Pat Temp 37 L (42-55) mm/Hg VBG pO2 at Pat Temp 106 H (25-40) mm/Hg VBG HCO3 33.1 H* (22-28) meq/L VBG O2 Sat (Shubham) 99.2 (95-100) VBG Base Excess 10.2 H (-2.0-2.0) VBG Hemoglobin 14.8 VBG Carboxyhemoglobin 4.3 (0.0-6.9) % T HGB POC Potassium 2.9 L* (3.5-5.1) Sodium (137-145) mmol/L Potassium (3.5-5.1) mmol/L Chloride (98-107) mmol/L Carbon Dioxide (22-30) mmol/L Anion Gap (5-15) MEQ/L BUN (7-17) mg/dL Creatinine (0.52-1.04) mg/dL Estimated GFR ML/MIN Glucose (74-106) mg/dL POC Glucometer (74 to 106) mg/dL Hemoglobin A1c (4.5-6.0) % Calcium (8.4-10.2) mg/dL Magnesium (1.6-2.3) mg/dL Total Bilirubin (0.2-1.3) mg/dL AST (14-36) U/L ALT (0-35) U/L Alkaline Phosphatase (38-126) U/L Troponin I 0.012 (0.000-0.034) ng/mL Serum Total Protein (6.3-8.2) g/dL Albumin (3.5-5.0) g/dL Urinalys Dipstick Clnc Urine Color (YELLOW) Urine Appearance (CLEAR) Urine pH (5-6) Ur Specific [place] (1.005-1.025) POC Urine Protein Conf (Negative) Urine Ketones (NEGATIVE) Urine Nitrite (NEGATIVE) Urine Bilirubin (NEGATIVE) Urine Urobilinogen (0-1) mg/dL Urine Leukocytes (NEGATIVE) Urine WBC (Auto) (0-5) /HPF Urine RBC (Auto) (0-2) /HPF U Epithel Cells (Auto) (FEW) /HPF Urine Bacteria (Auto) (NEGATIVE) /HPF Urine RBC (0-5) Flip/ul Ur Culture Indicated? Urine Glucose (NEGATIVE) mg/dL Ethyl Alcohol (0-10) mg/dL Influenza Type A Ag NEGATIVE (NEGATIVE) Influenza Type B Ag NEGATIVE (NEGATIVE) RSV (PCR) NEGATIVE (Negative) SARS-CoV-2 (PCR) NEGATIVE (NEGATIVE) 01/11/22 01/12/22 01/12/22 Range/Units 23:31 02:36 02:36 WBC 10.1 (4.0-10.5) x10^3/uL RBC 4.75 (4.1-5.4) x10^6/uL Hgb 13.9 (12.0-16.0) g/dL Hct 40.1 (35-47) % MCV 84.4 (78-100) fL MCH 29.3 (26-32) pg MCHC 34.7 (32-36) g/dL RDW 11.9 (11.5-14.0) % Plt Count 279 (150-450) x10^3/uL MPV 9.3 (7.5-11.0) fL Gran % 61.1 (36.0-66.0) % Immature Gran % (Auto) 0.4 (0.00-0.4) % Nucleat RBC Rel Count 0.0 (0.00-0.1) % Eos # (Auto) 0.25 (0-0.5) x10^3/uL Immature Gran # (Auto) 0.04 H (0.00-0.03) x10^3u/L Absolute Lymphs (auto) 2.57 (1.0-4.6) x10^3/uL Absolute Monos (auto) 1.03 (0.0-1.3) x10^3/uL Absolute Nucleated RBC 0.00 (0.00-0.01) x10^3u/L Lymphocytes % 25.5 (24.0-44.0) % Monocytes % 10.2 (0.0-12.0) % Eosinophils % 2.5 (0.00-5.0) % Basophils % 0.3 (0.0-0.4) % Absolute Granulocytes 6.15 (1.4-6.9) x10^3/uL Basophils # 0.03 (0-0.4) x10^3/uL pO2/FiO2 Ratio % VBG pH (7.32-7.42) VBG pCO2 at Pat Temp (42-55) mm/Hg VBG pO2 at Pat Temp (25-40) mm/Hg VBG HCO3 (22-28) meq/L VBG O2 Sat (Shubham) (95-100) VBG Base Excess (-2.0-2.0) VBG Hemoglobin VBG Carboxyhemoglobin (0.0-6.9) % T HGB POC Potassium (3.5-5.1) Sodium (137-145) mmol/L Potassium (3.5-5.1) mmol/L Chloride (98-107) mmol/L Carbon Dioxide (22-30) mmol/L Anion Gap (5-15) MEQ/L BUN (7-17) mg/dL Creatinine (0.52-1.04) mg/dL Estimated GFR ML/MIN Glucose (74-106) mg/dL POC Glucometer 214 H (74 to 106) mg/dL Hemoglobin A1c (4.5-6.0) % Calcium (8.4-10.2) mg/dL Magnesium (1.6-2.3) mg/dL Total Bilirubin (0.2-1.3) mg/dL AST (14-36) U/L ALT (0-35) U/L Alkaline Phosphatase (38-126) U/L Troponin I 0.014 (0.000-0.034) ng/mL Serum Total Protein (6.3-8.2) g/dL Albumin (3.5-5.0) g/dL Urinalys Dipstick Clnc Urine Color (YELLOW) Urine Appearance (CLEAR) Urine pH (5-6) Ur Specific [place] (1.005-1.025) POC Urine Protein Conf (Negative) Urine Ketones (NEGATIVE) Urine Nitrite (NEGATIVE) Urine Bilirubin (NEGATIVE) Urine Urobilinogen (0-1) mg/dL Urine Leukocytes (NEGATIVE) Urine WBC (Auto) (0-5) /HPF Urine RBC (Auto) (0-2) /HPF U Epithel Cells (Auto) (FEW) /HPF Urine Bacteria (Auto) (NEGATIVE) /HPF Urine RBC (0-5) Flip/ul Ur Culture Indicated? Urine Glucose (NEGATIVE) mg/dL Ethyl Alcohol (0-10) mg/dL Influenza Type A Ag (NEGATIVE) Influenza Type B Ag (NEGATIVE) RSV (PCR) (Negative) SARS-CoV-2 (PCR) (NEGATIVE) 01/12/22 01/12/22 01/12/22 Range/Units 02:36 06:15 07:43 WBC (4.0-10.5) x10^3/uL RBC (4.1-5.4) x10^6/uL Hgb (12.0-16.0) g/dL Hct (35-47) % MCV (78-100) fL MCH (26-32) pg MCHC (32-36) g/dL RDW (11.5-14.0) % Plt Count (150-450) x10^3/uL MPV (7.5-11.0) fL Gran % (36.0-66.0) % Immature Gran % (Auto) (0.00-0.4) % Nucleat RBC Rel Count (0.00-0.1) % Eos # (Auto) (0-0.5) x10^3/uL Immature Gran # (Auto) (0.00-0.03) x10^3u/L Absolute Lymphs (auto) (1.0-4.6) x10^3/uL Absolute Monos (auto) (0.0-1.3) x10^3/uL Absolute Nucleated RBC (0.00-0.01) x10^3u/L Lymphocytes % (24.0-44.0) % Monocytes % (0.0-12.0) % Eosinophils % (0.00-5.0) % Basophils % (0.0-0.4) % Absolute Granulocytes (1.4-6.9) x10^3/uL Basophils # (0-0.4) x10^3/uL pO2/FiO2 Ratio % VBG pH (7.32-7.42) VBG pCO2 at Pat Temp (42-55) mm/Hg VBG pO2 at Pat Temp (25-40) mm/Hg VBG HCO3 (22-28) meq/L VBG O2 Sat (Shubham) (95-100) VBG Base Excess (-2.0-2.0) VBG Hemoglobin VBG Carboxyhemoglobin (0.0-6.9) % T HGB POC Potassium (3.5-5.1) Sodium 129 L D (137-145) mmol/L Potassium 2.7 L* 3.4 L D (3.5-5.1) mmol/L Chloride 86 L D (98-107) mmol/L Carbon Dioxide 36 H (22-30) mmol/L Anion Gap 9.2 (5-15) MEQ/L BUN 21 H (7-17) mg/dL Creatinine 0.69 (0.52-1.04) mg/dL Estimated GFR > 60.0 ML/MIN Glucose 207 H (74-106) mg/dL POC Glucometer 306 H (74 to 106) mg/dL Hemoglobin A1c (4.5-6.0) % Calcium 7.8 L D (8.4-10.2) mg/dL Magnesium (1.6-2.3) mg/dL Total Bilirubin (0.2-1.3) mg/dL AST (14-36) U/L ALT (0-35) U/L Alkaline Phosphatase (38-126) U/L Troponin I (0.000-0.034) ng/mL Serum Total Protein (6.3-8.2) g/dL Albumin (3.5-5.0) g/dL Urinalys Dipstick Clnc Urine Color (YELLOW) Urine Appearance (CLEAR) Urine pH (5-6) Ur Specific [place] (1.005-1.025) POC Urine Protein Conf (Negative) Urine Ketones (NEGATIVE) Urine Nitrite (NEGATIVE) Urine Bilirubin (NEGATIVE) Urine Urobilinogen (0-1) mg/dL Urine Leukocytes (NEGATIVE) Urine WBC (Auto) (0-5) /HPF Urine RBC (Auto) (0-2) /HPF U Epithel Cells (Auto) (FEW) /HPF Urine Bacteria (Auto) (NEGATIVE) /HPF Urine RBC (0-5) Flip/ul Ur Culture Indicated? Urine Glucose (NEGATIVE) mg/dL Ethyl Alcohol (0-10) mg/dL Influenza Type A Ag (NEGATIVE) Influenza Type B Ag (NEGATIVE) RSV (PCR) (Negative) SARS-CoV-2 (PCR) (NEGATIVE) 01/12/22 01/12/22 01/12/22 Range/Units 09:55 10:00 11:31 WBC (4.0-10.5) x10^3/uL RBC (4.1-5.4) x10^6/uL Hgb (12.0-16.0) g/dL Hct (35-47) % MCV (78-100) fL MCH (26-32) pg MCHC (32-36) g/dL RDW (11.5-14.0) % Plt Count (150-450) x10^3/uL MPV (7.5-11.0) fL Gran % (36.0-66.0) % Immature Gran % (Auto) (0.00-0.4) % Nucleat RBC Rel Count (0.00-0.1) % Eos # (Auto) (0-0.5) x10^3/uL Immature Gran # (Auto) (0.00-0.03) x10^3u/L Absolute Lymphs (auto) (1.0-4.6) x10^3/uL Absolute Monos (auto) (0.0-1.3) x10^3/uL Absolute Nucleated RBC (0.00-0.01) x10^3u/L Lymphocytes % (24.0-44.0) % Monocytes % (0.0-12.0) % Eosinophils % (0.00-5.0) % Basophils % (0.0-0.4) % Absolute Granulocytes (1.4-6.9) x10^3/uL Basophils # (0-0.4) x10^3/uL pO2/FiO2 Ratio % VBG pH (7.32-7.42) VBG pCO2 at Pat Temp (42-55) mm/Hg VBG pO2 at Pat Temp (25-40) mm/Hg VBG HCO3 (22-28) meq/L VBG O2 Sat (Shubham) (95-100) VBG Base Excess (-2.0-2.0) VBG Hemoglobin VBG Carboxyhemoglobin (0.0-6.9) % T HGB POC Potassium (3.5-5.1) Sodium (137-145) mmol/L Potassium 3.3 L (3.5-5.1) mmol/L Chloride (98-107) mmol/L Carbon Dioxide (22-30) mmol/L Anion Gap (5-15) MEQ/L BUN (7-17) mg/dL Creatinine (0.52-1.04) mg/dL Estimated GFR ML/MIN Glucose (74-106) mg/dL POC Glucometer 267 H (74 to 106) mg/dL Hemoglobin A1c 10.65 H (4.5-6.0) % Calcium (8.4-10.2) mg/dL Magnesium (1.6-2.3) mg/dL Total Bilirubin (0.2-1.3) mg/dL AST (14-36) U/L ALT (0-35) U/L Alkaline Phosphatase (38-126) U/L Troponin I (0.000-0.034) ng/mL Serum Total Protein (6.3-8.2) g/dL Albumin (3.5-5.0) g/dL Urinalys Dipstick Clnc Urine Color (YELLOW) Urine Appearance (CLEAR) Urine pH (5-6) Ur Specific [place] (1.005-1.025) POC Urine Protein Conf (Negative) Urine Ketones (NEGATIVE) Urine Nitrite (NEGATIVE) Urine Bilirubin (NEGATIVE) Urine Urobilinogen (0-1) mg/dL Urine Leukocytes (NEGATIVE) Urine WBC (Auto) (0-5) /HPF Urine RBC (Auto) (0-2) /HPF U Epithel Cells (Auto) (FEW) /HPF Urine Bacteria (Auto) (NEGATIVE) /HPF Urine RBC (0-5) Flip/ul Ur Culture Indicated? Urine Glucose (NEGATIVE) mg/dL Ethyl Alcohol (0-10) mg/dL Influenza Type A Ag (NEGATIVE) Influenza Type B Ag (NEGATIVE) RSV (PCR) (Negative) SARS-CoV-2 (PCR) (NEGATIVE) 01/12/22 01/12/22 Range/Units 11:38 17:05 WBC (4.0-10.5) x10^3/uL RBC (4.1-5.4) x10^6/uL Hgb (12.0-16.0) g/dL Hct (35-47) % MCV (78-100) fL MCH (26-32) pg MCHC (32-36) g/dL RDW (11.5-14.0) % Plt Count (150-450) x10^3/uL MPV (7.5-11.0) fL Gran % (36.0-66.0) % Immature Gran % (Auto) (0.00-0.4) % Nucleat RBC Rel Count (0.00-0.1) % Eos # (Auto) (0-0.5) x10^3/uL Immature Gran # (Auto) (0.00-0.03) x10^3u/L Absolute Lymphs (auto) (1.0-4.6) x10^3/uL Absolute Monos (auto) (0.0-1.3) x10^3/uL Absolute Nucleated RBC (0.00-0.01) x10^3u/L Lymphocytes % (24.0-44.0) % Monocytes % (0.0-12.0) % Eosinophils % (0.00-5.0) % Basophils % (0.0-0.4) % Absolute Granulocytes (1.4-6.9) x10^3/uL Basophils # (0-0.4) x10^3/uL pO2/FiO2 Ratio % VBG pH (7.32-7.42) VBG pCO2 at Pat Temp (42-55) mm/Hg VBG pO2 at Pat Temp (25-40) mm/Hg VBG HCO3 (22-28) meq/L VBG O2 Sat (Shubham) (95-100) VBG Base Excess (-2.0-2.0) VBG Hemoglobin VBG Carboxyhemoglobin (0.0-6.9) % T HGB POC Potassium (3.5-5.1) Sodium (137-145) mmol/L Potassium (3.5-5.1) mmol/L Chloride (98-107) mmol/L Carbon Dioxide (22-30) mmol/L Anion Gap (5-15) MEQ/L BUN (7-17) mg/dL Creatinine (0.52-1.04) mg/dL Estimated GFR ML/MIN Glucose (74-106) mg/dL POC Glucometer 106 104 (74 to 106) mg/dL Hemoglobin A1c (4.5-6.0) % Calcium (8.4-10.2) mg/dL Magnesium (1.6-2.3) mg/dL Total Bilirubin (0.2-1.3) mg/dL AST (14-36) U/L ALT (0-35) U/L Alkaline Phosphatase (38-126) U/L Troponin I (0.000-0.034) ng/mL Serum Total Protein (6.3-8.2) g/dL Albumin (3.5-5.0) g/dL Urinalys Dipstick Clnc Urine Color (YELLOW) Urine Appearance (CLEAR) Urine pH (5-6) Ur Specific [place] (1.005-1.025) POC Urine Protein Conf (Negative) Urine Ketones (NEGATIVE) Urine Nitrite (NEGATIVE) Urine Bilirubin (NEGATIVE) Urine Urobilinogen (0-1) mg/dL Urine Leukocytes (NEGATIVE) Urine WBC (Auto) (0-5) /HPF Urine RBC (Auto) (0-2) /HPF U Epithel Cells (Auto) (FEW) /HPF Urine Bacteria (Auto) (NEGATIVE) /HPF Urine RBC (0-5) Flip/ul Ur Culture Indicated? Urine Glucose (NEGATIVE) mg/dL Ethyl Alcohol (0-10) mg/dL Influenza Type A Ag (NEGATIVE) Influenza Type B Ag (NEGATIVE) RSV (PCR) (Negative) SARS-CoV-2 (PCR) (NEGATIVE) Microbiology 01/11/22 18:16 Urine Culture - Preliminary Clean Catch Midstream <10K NORMAL SKIN ART PROBABLE SKIN CONTAMINANT Accuchecks Date 01/12/22 Date 01/12/22 - Radiology Impressions Radiology Exams & Impressions: Radiology Procedures Category Date Time Status CHEST 1 VIEW (PORTABLE) Stat Exams 01/11/22 18:47 Completed Assessment/Plan (1) Type 2 diabetes mellitus Current Visit: Yes Status: Acute Qualifiers: Diabetes mellitus fpc insulin use: with intermediate frame tender use Diabetes mellitus complication status: with ketoacidosis Diabetes mellitus complication detail: without coma Qualified Code(s): E11.10 - Type 2 diabetes mellitus with ketoacidosis without coma; Z79.4 - intermediate frame tender (current) use of insulin Assessment & Plan: Chief Complaint Diagnosis DKA, N/V Allergies Allergy/AdvReac Type Severity Reaction Status Date / Time ketorolac [From Toradol] Allergy Verified 01/11/22 16:54 promethazine [From Phenergan] Allergy Verified 01/11/22 16:54 tramadol Allergy Verified 01/11/22 16:54 diphenhydramine AdvReac Verified 01/11/22 16:54 [From Benadryl] Vital Signs (Last 24 hours) Temp Pulse Resp BP Pulse Ox 01/12/22 16:00 97.7 F 81 16 100/59 99 01/12/22 12:00 97.7 F 93 H 16 106/57 95 01/12/22 08:00 97.7 F 108 H 17 103/56 92 L 01/12/22 04:00 98.1 F 95 H 16 117/72 96 01/12/22 00:00 97.8 F 95 H 16 112/58 95 01/11/22 20:48 97.7 F 85 16 113/66 100 01/11/22 19:05 100 01/11/22 18:16 105 H 125/91 97 Home Medications Medication Instructions Recorded Confirmed Last Taken Type Insulin Detemir [Levemir] 40 units SQ BID 01/11/22 01/11/22 01/06/22 History Propranolol HCl [Inderal ] 60 mg PO BID 01/11/22 01/11/22 Unknown History Tirzepatide [Mounjaro] 0.5 ml SQ WEEKLY 01/11/22 01/12/22 Unknown History Hydrocodone/Acetaminophen 1 tab PO Q4-6HPRN PRN MDD 3 01/12/22 01/12/22 Unknown History [Hydrocodone-Acetamin 5-325 mg] PANTOPRAZOLE 40 mg Tablet 1 tab PO DAILY 01/12/22 01/12/22 Unknown History [Protonix 40MG Tablet] Current Medications Generic Name Dose Route Start Last Admin Trade Name Freq PRN Reason Stop Dose Admin Hydrocodone Bitart/Acetaminophen 1 tab 01/12/22 17:00 Hydrocodone/Apap 5/325 Mg Tablet PO 01/17/22 16:59 Q4HPRN PRN PAIN Calcium Carbonate/Glycine 750 mg 01/12/22 14:58 Calcium Carbonate 750 Mg 750 Mg Tab.Chew PO 02/11/22 14:57 Q6HPRN PRN INDIGESTION Hydromorphone HCl 1 mg 01/11/22 20:15 10/13/22 15:28 Hydromorphone 1 Mg/1ml Inj 1 Mg/Ml Syringe IV 01/16/22 20:14 1 mg Q4H PRN PRN Administration PAIN Ceftriaxone Sodium/Dextrose 1 g in 50 mls @ 100 mls/hr 01/12/22 10:00 01/12/22 09:08 Rocephin 1 Gm-D5w 50 Ml Bag IV 01/15/22 09:59 100 mls/hr Q24H10 HINA Administration Potassium Chloride/Dextrose/Sod Cl 1,000 mls @ 150 mls/hr 01/12/22 04:00 01/12/22 11:18 D5w/0.45ns W/ 20meq Kcl 1000 Ml IV 01/12/22 18:00 150 mls/hr .Q6H40M HINA Administration Sodium Chloride 1,000 mls @ 150 mls/hr 01/12/22 18:00 Sodium Chloride 0.9% 1000 Ml IV 02/11/22 17:59 .Q6H40M HINA Insulin Glargine 40 unit 01/12/22 10:00 01/12/22 00:41 Insulin Glargine 1 Unit SQ 02/11/22 09:59 40 unit BID HINA Administration Insulin Human Lispro 0 unit 01/12/22 10:00 01/12/22 12:20 Insulin Lispro 1 Unit SQ 02/11/22 09:59 10 unit UD PRN Administration HYPERGLYCEMIA Miscellaneous Information 1 each 01/12/22 17:30 Medication Intervention 1 Each Each 02/11/22 17:29 .RN TO CHECK HINA Ondansetron HCl 4 mg 01/11/22 19:02 01/12/22 04:07 Ondansetron Hcl 4 Mg/2 Ml Vial IV 02/10/22 19:01 4 mg Q6H PRN PRN Administration NAUSEA/VOMITING Ondansetron HCl 4 mg 01/12/22 17:00 Zofran 4 Mg/Udtablet Orally Disintegrating PO 02/11/22 16:59 Q6H PRN PRN NAUSEA Pantoprazole Sodium 40 mg 01/12/22 18:00 Protonix (Pantoprazole) 40 Mg Tablet PO 02/11/22 17:59 DAILY HINA Propranolol HCl 60 mg 01/12/22 10:00 01/12/22 11:17 Propranolol Hcl 20 Mg Tablet PO 02/11/22 09:59 Not Given BID HINA Discontinued Medications Generic Name Dose Route Start Last Admin Trade Name Cheli PRN Reason Stop Dose Admin Diphenhydramine HCl 25 mg 01/11/22 17:08 01/11/22 17:58 Diphenhydramine Hcl 50 Mg/Ml Vial IV 01/11/22 17:09 25 mg STAT ONE Administration Diphenhydramine HCl Confirm 01/11/22 17:51 Diphenhydramine Hcl 50 Mg/Ml Vial Administered 01/11/22 17:52 Dose 50 mg .ROUTE .STK-MED ONE Droperidol 1.25 mg 01/11/22 17:06 01/11/22 17:59 Droperidol 5 Mg/2 Ml Vial IV 01/11/22 17:07 1.25 mg STAT ONE Administration Droperidol Confirm 01/11/22 17:50 Droperidol 5 Mg/2 Ml Vial Administered 01/11/22 17:51 Dose 5 mg .ROUTE .STK-MED ONE Hydromorphone HCl 0.5 mg 01/11/22 17:08 01/11/22 17:59 Hydromorphone 1 Mg/1ml Inj 1 Mg/Ml Syringe IV 01/11/22 17:09 0.5 mg STAT ONE Administration Hydromorphone HCl Confirm 01/11/22 17:53 Hydromorphone 1 Mg/1ml Inj 1 Mg/Ml Syringe Administered 01/11/22 17:54 Dose 1 mg .ROUTE .STK-MED ONE Sodium Chloride 1,000 mls @ 999 mls/hr 01/11/22 17:06 01/11/22 19:27 Sodium Chloride 0.9% 1000 Ml IV 01/11/22 18:06 Infused .Q1H1M STA Infusion Sodium Chloride 1,000 mls @ 999 mls/hr 01/11/22 17:08 01/11/22 19:26 Sodium Chloride 0.9% 1000 Ml IV 01/11/22 18:08 Infused .Q1H1M STA Infusion Sodium Chloride Confirm 01/11/22 17:53 Sodium Chloride 0.9% 1000 Ml Administered 01/11/22 17:54 Dose 2,000 mls @ ud .ROUTE .STK-MED ONE Sodium Chloride 1,000 mls @ 100 mls/hr 01/11/22 19:15 01/11/22 20:48 Sodium Chloride 0.9% 1000 Ml IV 02/10/22 19:14 100 mls/hr .Q10H HINA Administration Potassium Chloride 20 meq in 100 mls @ 50 mls/hr 01/12/22 03:45 01/12/22 05:57 Potassium Chloride 20 Meq In Water 100ml IV 01/12/22 07:44 50 mls/hr Q2H HINA Administration Potassium Chloride 20 meq in 100 mls @ 50 mls/hr 01/12/22 13:00 01/12/22 14:49 Potassium Chloride 20 Meq In Water 100ml IV 01/12/22 14:59 50 mls/hr STAT ONE Administration Lidocaine HCl Confirm 01/12/22 04:14 Lidocaine Hcl 2% Viscous 15 Ml Udcup Administered 01/12/22 04:15 Dose 15 ml .ROUTE .STK-MED ONE Lidocaine HCl 15 ml 01/12/22 04:14 01/12/22 04:15 Lidocaine Hcl 2% Viscous 15 Ml Udcup PO 01/12/22 04:15 15 ml STAT ONE Administration Magnesium Hydroxide Confirm 01/12/22 04:13 Magnesium Hydroxide 30 Ml Udcup Administered 01/12/22 04:14 Dose 30 ml .ROUTE .STK-MED ONE Magnesium Hydroxide 30 ml 01/12/22 04:14 01/12/22 04:15 Magnesium Hydroxide 30 Ml Udcup PO 01/12/22 04:15 30 ml STAT ONE Administration Ondansetron HCl 4 mg 01/11/22 17:06 01/11/22 17:58 Ondansetron Hcl 4 Mg/2 Ml Vial IV 01/11/22 17:07 4 mg STAT ONE Administration Ondansetron HCl Confirm 01/11/22 17:50 Ondansetron Hcl 4 Mg/2 Ml Vial Administered 01/11/22 17:51 Dose 4 mg .ROUTE .STK-MED ONE Potassium Bicarbonate 50 meq 01/12/22 03:41 01/12/22 03:53 Potassium Bicarbonate 25 Meq Tab PO 01/12/22 03:42 50 meq STAT ONE Administration Potassium Chloride 20 meq 01/11/22 18:23 01/11/22 18:43 Potassium Chloride Tab 10 Meq Tab PO 01/11/22 18:24 20 meq STAT ONE Administration Potassium Chloride Confirm 01/11/22 18:41 Potassium Chloride Tab 10 Meq Tab Administered 01/11/22 18:42 Dose 20 meq PO .STK-MED ONE Intake & Output (Last 24 hours) 01/10/22 01/11/22 01/12/22 01/13/22 11:59 11:59 11:59 11:59 Intake Total 2682 2420 Output Total 2400 1250 Balance 282 1170 Weight 74.8 kg Microbiology Results (Last 24 hours) 01/11/22 18:16 Clean Catch Midstream Urine Culture - Preliminary <10K NORMAL SKIN ART PROBABLE SKIN CONTAMINANT Laboratory Results (Last 24 hours) 01/12/22 01/12/22 01/12/22 17:05 11:38 11:31 WBC RBC Hgb Hct MCV MCH MCHC RDW Plt Count MPV Gran % Immature Gran % (Auto) Nucleat RBC Rel Count Eos # (Auto) Immature Gran # (Auto) Absolute Lymphs (auto) Absolute Monos (auto) Absolute Nucleated RBC Lymphocytes % Monocytes % Eosinophils % Basophils % Absolute Granulocytes Basophils # pO2/FiO2 Ratio VBG pH VBG pCO2 at Pat Temp VBG pO2 at Pat Temp VBG HCO3 VBG O2 Sat (Shubham) VBG Base Excess VBG Hemoglobin VBG Carboxyhemoglobin POC Potassium Sodium Potassium Chloride Carbon Dioxide Anion Gap BUN Creatinine Estimated GFR Glucose POC Glucometer 104 106 267 H Hemoglobin A1c Calcium Magnesium Total Bilirubin AST ALT Alkaline Phosphatase Troponin I Serum Total Protein Albumin Urinalys Dipstick Clnc Urine Color Urine Appearance Urine pH Ur Specific [place] POC Urine Protein Conf Urine Ketones Urine Nitrite Urine Bilirubin Urine Urobilinogen Urine Leukocytes Urine WBC (Auto) Urine RBC (Auto) U Epithel Cells (Auto) Urine Bacteria (Auto) Urine RBC Ur Culture Indicated? Urine Glucose Ethyl Alcohol Influenza Type A Ag Influenza Type B Ag RSV (PCR) SARS-CoV-2 (PCR) 01/12/22 01/12/22 01/12/22 10:00 09:55 07:43 WBC RBC Hgb Hct MCV MCH MCHC RDW Plt Count MPV Gran % Immature Gran % (Auto) Nucleat RBC Rel Count Eos # (Auto) Immature Gran # (Auto) Absolute Lymphs (auto) Absolute Monos (auto) Absolute Nucleated RBC Lymphocytes % Monocytes % Eosinophils % Basophils % Absolute Granulocytes Basophils # pO2/FiO2 Ratio VBG pH VBG pCO2 at Pat Temp VBG pO2 at Pat Temp VBG HCO3 VBG O2 Sat (Shubham) VBG Base Excess VBG Hemoglobin VBG Carboxyhemoglobin POC Potassium Sodium Potassium 3.3 L Chloride Carbon Dioxide Anion Gap BUN Creatinine Estimated GFR Glucose POC Glucometer 306 H Hemoglobin A1c 10.65 H Calcium Magnesium Total Bilirubin AST ALT Alkaline Phosphatase Troponin I Serum Total Protein Albumin Urinalys Dipstick Clnc Urine Color Urine Appearance Urine pH Ur Specific [place] POC Urine Protein Conf Urine Ketones Urine Nitrite Urine Bilirubin Urine Urobilinogen Urine Leukocytes Urine WBC (Auto) Urine RBC (Auto) U Epithel Cells (Auto) Urine Bacteria (Auto) Urine RBC Ur Culture Indicated? Urine Glucose Ethyl Alcohol Influenza Type A Ag Influenza Type B Ag RSV (PCR) SARS-CoV-2 (PCR) 01/12/22 01/12/22 01/12/22 06:15 02:36 02:36 WBC 10.1 RBC 4.75 Hgb 13.9 Hct 40.1 MCV 84.4 MCH 29.3 MCHC 34.7 RDW 11.9 Plt Count 279 MPV 9.3 Gran % 61.1 Immature Gran % (Auto) 0.4 Nucleat RBC Rel Count 0.0 Eos # (Auto) 0.25 Immature Gran # (Auto) 0.04 H Absolute Lymphs (auto) 2.57 Absolute Monos (auto) 1.03 Absolute Nucleated RBC 0.00 Lymphocytes % 25.5 Monocytes % 10.2 Eosinophils % 2.5 Basophils % 0.3 Absolute Granulocytes 6.15 Basophils # 0.03 pO2/FiO2 Ratio VBG pH VBG pCO2 at Pat Temp VBG pO2 at Pat Temp VBG HCO3 VBG O2 Sat (Shubham) VBG Base Excess VBG Hemoglobin VBG Carboxyhemoglobin POC Potassium Sodium 129 L D Potassium 3.4 L D 2.7 L* Chloride 86 L D Carbon Dioxide 36 H Anion Gap 9.2 BUN 21 H Creatinine 0.69 Estimated GFR > 60.0 Glucose 207 H POC Glucometer Hemoglobin A1c Calcium 7.8 L D Magnesium Total Bilirubin AST ALT Alkaline Phosphatase Troponin I Serum Total Protein Albumin Urinalys Dipstick Clnc Urine Color Urine Appearance Urine pH Ur Specific [place] POC Urine Protein Conf Urine Ketones Urine Nitrite Urine Bilirubin Urine Urobilinogen Urine Leukocytes Urine WBC (Auto) Urine RBC (Auto) U Epithel Cells (Auto) Urine Bacteria (Auto) Urine RBC Ur Culture Indicated? Urine Glucose Ethyl Alcohol Influenza Type A Ag Influenza Type B Ag RSV (PCR) SARS-CoV-2 (PCR) 01/12/22 01/11/22 01/11/22 02:36 23:31 21:55 WBC RBC Hgb Hct MCV MCH MCHC RDW Plt Count MPV Gran % Immature Gran % (Auto) Nucleat RBC Rel Count Eos # (Auto) Immature Gran # (Auto) Absolute Lymphs (auto) Absolute Monos (auto) Absolute Nucleated RBC Lymphocytes % Monocytes % Eosinophils % Basophils % Absolute Granulocytes Basophils # pO2/FiO2 Ratio 21.0 VBG pH 7.56 H* VBG pCO2 at Pat Temp 37 L VBG pO2 at Pat Temp 106 H VBG HCO3 33.1 H* VBG O2 Sat (Shubham) 99.2 VBG Base Excess 10.2 H VBG Hemoglobin 14.8 VBG Carboxyhemoglobin 4.3 POC Potassium 2.9 L* Sodium Potassium Chloride Carbon Dioxide Anion Gap BUN Creatinine Estimated GFR Glucose POC Glucometer 214 H Hemoglobin A1c Calcium Magnesium Total Bilirubin AST ALT Alkaline Phosphatase Troponin I 0.014 Serum Total Protein Albumin Urinalys Dipstick Clnc Urine Color Urine Appearance Urine pH Ur Specific [place] POC Urine Protein Conf Urine Ketones Urine Nitrite Urine Bilirubin Urine Urobilinogen Urine Leukocytes Urine WBC (Auto) Urine RBC (Auto) U Epithel Cells (Auto) Urine Bacteria (Auto) Urine RBC Ur Culture Indicated? Urine Glucose Ethyl Alcohol Influenza Type A Ag Influenza Type B Ag RSV (PCR) SARS-CoV-2 (PCR) 01/11/22 01/11/22 01/11/22 21:40 18:30 18:17 WBC RBC Hgb Hct MCV MCH MCHC RDW Plt Count MPV Gran % Immature Gran % (Auto) Nucleat RBC Rel Count Eos # (Auto) Immature Gran # (Auto) Absolute Lymphs (auto) Absolute Monos (auto) Absolute Nucleated RBC Lymphocytes % Monocytes % Eosinophils % Basophils % Absolute Granulocytes Basophils # pO2/FiO2 Ratio VBG pH VBG pCO2 at Pat Temp VBG pO2 at Pat Temp VBG HCO3 VBG O2 Sat (Shubham) VBG Base Excess VBG Hemoglobin VBG Carboxyhemoglobin POC Potassium Sodium Potassium Chloride Carbon Dioxide Anion Gap BUN Creatinine Estimated GFR Glucose POC Glucometer Hemoglobin A1c Calcium Magnesium Total Bilirubin AST ALT Alkaline Phosphatase Troponin I 0.012 Serum Total Protein Albumin Urinalys Dipstick Clnc MAIN LAB Urine Color BROWN Urine Appearance CLOUDY Urine pH 5.5 Ur Specific [place] 1.020 POC Urine Protein Conf 100 Urine Ketones >=160 Urine Nitrite NEGATIVE Urine Bilirubin SMALL Urine Urobilinogen 0.2 Urine Leukocytes NEGATIVE Urine WBC (Auto) >100 Urine RBC (Auto) >101 U Epithel Cells (Auto) RARE Urine Bacteria (Auto) NONE Urine RBC LARGE Ur Culture Indicated? ORDERED SEPARATELY Urine Glucose >=1000 Ethyl Alcohol Influenza Type A Ag NEGATIVE Influenza Type B Ag NEGATIVE RSV (PCR) NEGATIVE SARS-CoV-2 (PCR) NEGATIVE 01/11/22 01/11/22 17:30 17:30 WBC RBC Hgb Hct MCV MCH MCHC RDW Plt Count MPV Gran % Immature Gran % (Auto) Nucleat RBC Rel Count Eos # (Auto) Immature Gran # (Auto) Absolute Lymphs (auto) Absolute Monos (auto) Absolute Nucleated RBC Lymphocytes % Monocytes % Eosinophils % Basophils % Absolute Granulocytes Basophils # pO2/FiO2 Ratio VBG pH VBG pCO2 at Pat Temp VBG pO2 at Pat Temp VBG HCO3 VBG O2 Sat (Shubham) VBG Base Excess VBG Hemoglobin VBG Carboxyhemoglobin POC Potassium Sodium 122 L Potassium 2.6 L* Chloride 71 L Carbon Dioxide 36 H Anion Gap 17.9 H BUN 32 H Creatinine 0.85 Estimated GFR > 60.0 Glucose 335 H POC Glucometer Hemoglobin A1c Calcium 9.3 Magnesium 2.0 Total Bilirubin 1.10 AST 24 ALT 21 Alkaline Phosphatase 114 Troponin I < 0.012 Serum Total Protein 8.1 Albumin 4.3 Urinalys Dipstick Clnc Urine Color Urine Appearance Urine pH Ur Specific [place] POC Urine Protein Conf Urine Ketones Urine Nitrite Urine Bilirubin Urine Urobilinogen Urine Leukocytes Urine WBC (Auto) Urine RBC (Auto) U Epithel Cells (Auto) Urine Bacteria (Auto) Urine RBC Ur Culture Indicated? Urine Glucose Ethyl Alcohol < 10 Influenza Type A Ag Influenza Type B Ag RSV (PCR) SARS-CoV-2 (PCR) Orders (Last 24 hours) Category Date Time Status Admit as Inpatient ROUTINE Care 01/11/22 19:02 Completed [employer] Person STAT Care 01/11/22 17:07 Completed Code Status Order ROUTINE Care 01/11/22 19:02 Active EKG-ER Only STAT Care 01/11/22 17:06 Completed IV Care Q6H Care 01/11/22 19:02 Completed IV Insertion STAT Care 01/11/22 17:06 Completed Observation [Place in Observation] ROUTINE Care 01/11/22 20:06 Active Order K Level 2 hours post-inf 2 HRS POST K-INFUSED Care 01/12/22 03:43 Active Order K Level 2 hours post-inf 2 HRS POST K-INFUSED Care 01/12/22 13:01 Active POCT Glucose Check ACHS Care 01/11/22 20:23 Active Telemetry q4h Care 01/12/22 03:43 Active 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 ROUTINE Cons 01/11/22 21:00 Active Carb Diet 1800 [Consistent Carbohydrate Diet 1800 Diet 01/12/22 Lunch Active Calorie] Nutritional Admission Screen ONCE Diet 01/11/22 21:00 Active CHEST 1 VIEW (PORTABLE) Stat Exams 01/11/22 18:47 Completed AMYLASE Stat Lab 01/11/22 17:30 Completed BMP AM.LAB Lab 01/12/22 02:36 Completed BMP AM.LAB Lab 01/13/22 04:00 Ordered BMP Routine Lab 01/12/22 18:00 Ordered CBC AM.LAB Lab 01/13/22 04:00 Ordered CBC W DIFF AM.LAB Lab 01/12/22 02:36 Completed CBC W DIFF Stat Lab 01/11/22 17:30 Completed CMP Stat Lab 01/11/22 17:30 Completed COVID/FLU/RSV Panel Stat Lab 01/11/22 18:30 Completed CULTURE,URINE Stat Lab 01/11/22 18:16 Results ETHYL ALCOHOL Stat Lab 01/11/22 17:30 Completed HCG QUALITATIVE,SERUM Stat Lab 01/11/22 17:30 Completed HEMOGLOBIN A1C Urgent Lab 01/12/22 10:00 Completed LIPASE Stat Lab 01/11/22 17:30 Completed MAG [MAGNESIUM] AM.LAB Lab 01/13/22 04:00 Ordered MAGNESIUM Stat Lab 01/11/22 17:30 Completed POCT GLUCOSE Stat Lab 01/11/22 23:31 Completed POCT GLUCOSE Stat Lab 01/12/22 07:43 Completed POCT GLUCOSE Stat Lab 01/12/22 11:31 Completed POCT GLUCOSE Stat Lab 01/12/22 11:38 Completed POCT GLUCOSE Stat Lab 01/12/22 17:05 Completed Potassium Urgent Lab 01/12/22 06:15 Completed Potassium Urgent Lab 01/12/22 09:55 Completed TROPONIN Q4H Lab 01/11/22 17:30 Completed TROPONIN Q4H Lab 01/11/22 21:40 Completed TROPONIN Q4H Lab 01/12/22 02:36 Completed UA W/RFX CULTURE Stat Lab 01/11/22 18:17 Completed VBG [VENOUS BLOOD GAS] Routine Lab 01/11/22 21:55 Completed Calcium Carbonate 750 mg [Tums EX 750 MG] Med 01/12/22 14:58 Active 750 mg PO Q6HPRN PRN Ceftriaxone 1 GM/50 ML PREMIX* [ROCEPHIN 1 Gm-D5w 50 ml Med 01/12/22 10:00 Active Bag] 1 g in 50 ml IV Q24H10 D5w-0.45NACL W/ 20Meq KCl [D5W/0.45NS W/ 20mEq KCl 1000 Med 01/12/22 04:00 Active ML] 1,000 ml IV 150 mls/hr Diphenhydramine HCl 50 mg/ml [Benadryl 50 mg/ml] Med 01/11/22 17:08 Discontinued 25 mg IV STAT ONE Diphenhydramine HCl 50 mg/ml [Benadryl 50 mg/ml] Med 01/11/22 17:51 Discontinued 50 mg .ROUTE .STK-MED ONE Droperidol [Inapsine] Med 01/11/22 17:06 Discontinued 1.25 mg IV STAT ONE Droperidol [Inapsine] Med 01/11/22 17:50 Discontinued 5 mg .ROUTE .STK-MED ONE Hydrocodone/APAP 5/325 [Gower 5/325 mg] Med 01/12/22 17:00 Active 1 tab PO Q4HPRN PRN Hydromorphone 1 mg/1Ml Inj [Hydromorphone 1 mg/ml Med 01/11/22 17:08 Discontinued Injection] 0.5 mg IV STAT ONE Hydromorphone 1 mg/1Ml Inj [Hydromorphone 1 mg/ml Med 01/11/22 17:53 Discontinued Injection] 1 mg .ROUTE .STK-MED ONE Hydromorphone 1 mg/1Ml Inj [Hydromorphone 1 mg/ml Med 01/11/22 20:15 Active Injection] 1 mg IV Q4H PRN PRN Insulin Glargine [Lantus Insulin] Med 01/12/22 10:00 Active 40 unit SQ BID Insulin Lispro [Humalog] Med 01/12/22 10:00 Active See Dose Instructions SQ UD PRN Lidocaine HCl 2% Viscous [Xylocaine Viscous 2% 15 ml Med 01/12/22 04:14 Discontinued Cup] 15 ml .ROUTE .STK-MED ONE Lidocaine HCl 2% Viscous [Xylocaine Viscous 2% 15 ml Med 01/12/22 04:14 Discontinued Cup] 15 ml PO STAT ONE Magnesium Hydroxide 30 ml [Milk of Magnesia 30 ml Med 01/12/22 04:13 Discontinued ] 30 ml .ROUTE .STK-MED ONE Magnesium Hydroxide 30 ml [Milk of Magnesia 30 ml Med 01/12/22 04:14 Discontinued ] 30 ml PO STAT ONE Medication Intervention Med 01/12/22 17:30 Active 1 each MC .RN TO CHECK NaCl 0.9% 1000 ml [Sodium Chloride 0.9% 1000 ML] 1,000 Med 01/11/22 19:15 Di scontinued ml IV 100 mls/hr NaCl 0.9% 1000 ml [Sodium Chloride 0.9% 1000 ML] 1,000 Med 01/12/22 18:00 Active ml IV 150 mls/hr NaCl 0.9% 1000 ml [Sodium Chloride 0.9% 1000 ML] 1,000 Med 01/11/22 17:06 Discontinued ml IV 999 mls/hr NaCl 0.9% 1000 ml [Sodium Chloride 0.9% 1000 ML] 1,000 Med 01/11/22 17:08 Discontinued ml IV 999 mls/hr NaCl 0.9% 1000 ml [Sodium Chloride 0.9% 1000 ML] 2,000 Med 01/11/22 17:53 Discontinued ml .ROUTE UD Ondansetron HCl 4 mg/2 ml [Zofran 4 MG/2 ML VIAL] Med 01/11/22 17:50 Discontinued 4 mg .ROUTE .STK-MED ONE Ondansetron HCl 4 mg/2 ml [Zofran 4 MG/2 ML VIAL] Med 01/11/22 19:02 Active 4 mg IV Q6H PRN PRN Ondansetron HCl 4 mg/2 ml [Zofran 4 MG/2 ML VIAL] Med 01/11/22 17:06 Discontinued 4 mg IV STAT ONE Ondansetron ODT 4 MG [Zofran Odt 4 mg] Med 01/12/22 17:00 Active 4 mg PO Q6H PRN PRN PANTOPRAZOLE 40 mg Tablet [Protonix 40MG Tablet] Med 01/12/22 18:00 Active 40 mg PO DAILY Potassium Bicarbonate [K-Lyte ] Med 01/12/22 03:41 Discontinued 50 meq PO STAT ONE Potassium Chloride 20Meq/100Ml [POTASSIUM CHLORIDE 20 Med 01/12/22 03:45 Discontinued mEq IN WATER 100ML] 20 meq in 100 ml IV Q2H Potassium Chloride 20Meq/100Ml [POTASSIUM CHLORIDE 20 Med 01/12/22 13:00 Discontinued mEq IN WATER 100ML] 20 meq in 100 ml IV STAT Potassium Chloride Tab* [Klor Con] Med 01/11/22 18:41 Discontinued 20 meq PO .STK-MED ONE Potassium Chloride Tab* [Klor Con] Med 01/11/22 18:23 Discontinued 20 meq PO STAT ONE Propranolol HCl [Inderal ] Med 01/12/22 10:00 Active 60 mg PO BID Smoking Cessation Education ONCE RT 01/11/22 21:00 Completed Patient Care Notes (Last 24 hours) 01/12/22 17:54 Nursing Note by Taylor Covarrubias UPDATED PT THAT MEDICATION MOUNJARO IS NON FORMULARY AND THAT PT WOULD NEED TO BRING IN HOME SUPPLY IF WANTING TO TAKE MEDICATION WHILE IN HOSPITAL. PT STATES THAT SHE IS NOT BRINGING IT IN THAT SHE PLANS TO DISCHARGE HOME TOMORROW AND WILL NOT NEED THAT MEDICATION. Initialized on 01/12/22 17:54 - END OF NOTE 01/12/22 14:59 Nursing Note by Taylor Covarrubias REC. ORDER FOR TUMS Q6HPRN FOR INDIGESTION. Initialized on 01/12/22 14:59 - END OF NOTE 01/12/22 12:52 Nursing Note by Taylor Covarrubias ROUNDED ON PT WITH DR. LOERA. WOULD LIKE FOR PT TO STAY OVERNIGHT. REC. THE FOLLOWING ORDERS: K-RIDER X 1, CHECK BMP 2 HRS POST INFUSION. ONCE CURRENT IV FLUID BAG COMPLETES (D5 1/2 NS W 20KCL) SWITCH TO NS AND CONTINUE TO RUN AT 150CC/HR. Initialized on 01/12/22 12:52 - END OF NOTE 01/12/22 12:00 Nursing Note by Taylor Covarrubias ACCU CHECK RESULT OF 106 AT 1138 INACCURATE - WRONG CHART. CORRECT ACCU CHECK RESULT 267. Initialized on 01/12/22 12:00 - END OF NOTE 01/12/22 10:01 Nursing Note by Taylor Covarrubias REC. THE FOLLOWING ORDERS FROM DR. LOERA: HIGH DOSE HUMALOG SLIDING SCALE AND CHANGE DIET TO 1800 REGIS CARB CONTROLLED. Initialized on 01/12/22 10:01 - END OF NOTE 01/12/22 09:32 Nursing Note by Taylor Covarrubias CALLED DR. LOERA AT [facility] AND LEFT MESSAGE WITH CYNTHIA IN REGARDS TO PT ACCU CHECK THIS AM AND NO SLIDING SCALE INSULIN ORDERS. ALSO NOTIFIED DENIES THAT HOME MEDICATION LIST WAS FAXED OVER A FEW MINUTES PRIOR. CYNTHIA STATES SHE WILL DISCUSS WITH MD AND RETURN PHONE CALL. Initialized on 01/12/22 09:32 - END OF NOTE 01/12/22 08:30 (created 01/12/22 09:33) Nursing Note by Taylor Covarrubias ATTEMPTED TO CALL DR. LOERA AGAIN AT THIS TIME WITH NO ANSWER. WILL CALL [facility] OFFICE AFTER 0900. Initialized on 01/12/22 09:33 - END OF NOTE 01/12/22 07:59 Nursing Note by Taylor Covarrubias ATTEMPTED TO CALL DR. LOERA TO UPDATE OF PATIENT OF ACCU CHECK OF 306 THIS AM AND NO SLIDING SCALE ORDER. UNABLE TO REACH AT THIS TIME. Initialized on 01/12/22 07:59 - END OF NOTE (2) DKA (diabetic ketoacidosis) Current Visit: Yes Status: Acute Qualifiers: Diabetes mellitus type: type 2 Diabetes mellitus complication detail: without coma Qualified Code(s): E11.10 - Type 2 diabetes mellitus with ketoacidosis without coma Assessment & Plan: Chief Complaint Diagnosis DKA, N/V Allergies Allergy/AdvReac Type Severity Reaction Status Date / Time ketorolac [From Toradol] Allergy Verified 01/11/22 16:54 promethazine [From Phenergan] Allergy Verified 01/11/22 16:54 tramadol Allergy Verified 01/11/22 16:54 diphenhydramine AdvReac Verified 01/11/22 16:54 [From [facility]] Vital Signs (Last 24 hours) Temp Pulse Resp BP Pulse Ox 01/12/22 16:00 97.7 F 81 16 100/59 99 01/12/22 12:00 97.7 F 93 H 16 106/57 95 01/12/22 08:00 97.7 F 108 H 17 103/56 92 L 01/12/22 04:00 98.1 F 95 H 16 117/72 96 01/12/22 00:00 97.8 F 95 H 16 112/58 95 01/11/22 20:48 97.7 F 85 16 113/66 100 01/11/22 19:05 100 01/11/22 18:16 105 H 125/91 97 Home Medications Medication Instructions Recorded Confirmed Last Taken Type Insulin Detemir [Levemir] 40 units SQ BID 01/11/22 01/11/22 01/06/22 History Propranolol HCl [Inderal ] 60 mg PO BID 01/11/22 01/11/22 Unknown History Tirzepatide [Mounjaro] 0.5 ml SQ WEEKLY 01/11/22 01/12/22 Unknown History Hydrocodone/Acetaminophen 1 tab PO Q4-6HPRN PRN MDD 3 01/12/22 01/12/22 Unknown History [Hydrocodone-Acetamin 5-325 mg] PANTOPRAZOLE 40 mg Tablet 1 tab PO DAILY 01/12/22 01/12/22 Unknown History [Protonix 40MG Tablet] Current Medications Generic Name Dose Route Start Last Admin Trade Name Freq PRN Reason Stop Dose Admin Hydrocodone Bitart/Acetaminophen 1 tab 01/12/22 17:00 Hydrocodone/Apap 5/325 Mg Tablet PO 01/17/22 16:59 Q4HPRN PRN PAIN Calcium Carbonate/Glycine 750 mg 01/12/22 14:58 Calcium Carbonate 750 Mg 750 Mg Tab.Chew PO 02/11/22 14:57 Q6HPRN PRN INDIGESTION Hydromorphone HCl 1 mg 01/11/22 20:15 01/12/22 15:28 Hydromorphone 1 Mg/1ml Inj 1 Mg/Ml Syringe IV 01/16/22 20:14 1 mg Q4H PRN PRN Administration PAIN Ceftriaxone Sodium/Dextrose 1 g in 50 mls @ 100 mls/hr 01/12/22 10:00 01/12/22 09:08 Rocephin 1 Gm-D5w 50 Ml Bag IV 01/15/22 09:59 100 mls/hr Q24H10 HINA Administration Potassium Chloride/Dextrose/Sod Cl 1,000 mls @ 150 mls/hr 01/12/22 04:00 01/12/22 11:18 D5w/0.45ns W/ 20meq Kcl 1000 Ml IV 01/12/22 18:00 150 mls/hr .Q6H40M HINA Administration Sodium Chloride 1,000 mls @ 150 mls/hr 01/12/22 18:00 Sodium Chloride 0.9% 1000 Ml IV 02/11/22 17:59 .Q6H40M HINA Insulin Glargine 40 unit 01/12/22 10:00 01/12/22 00:41 Insulin Glargine 1 Unit SQ 02/11/22 09:59 40 unit BID HINA Administration Insulin Human Lispro 0 unit 01/12/22 10:00 01/12/22 12:20 Insulin Lispro 1 Unit SQ 02/11/22 09:59 10 unit UD PRN Administration HYPERGLYCEMIA Miscellaneous Information 1 each 01/12/22 17:30 Medication Intervention 1 Each Each 02/11/22 17:29 .RN TO CHECK HINA Ondansetron HCl 4 mg 01/11/22 19:02 01/12/22 04:07 Ondansetron Hcl 4 Mg/2 Ml Vial IV 02/10/22 19:01 4 mg Q6H PRN PRN Administration NAUSEA/VOMITING Ondansetron HCl 4 mg 01/12/22 17:00 Zofran 4 Mg/Udtablet Orally Disintegrating PO 02/11/22 16:59 Q6H PRN PRN NAUSEA Pantoprazole Sodium 40 mg 01/12/22 18:00 Protonix (Pantoprazole) 40 Mg Tablet PO 02/11/22 17:59 DAILY HINA Propranolol HCl 60 mg 01/12/22 10:00 01/12/22 11:17 Propranolol Hcl 20 Mg Tablet PO 02/11/22 09:59 Not Given BID HINA Discontinued Medications Generic Name Dose Route Start Last Admin Trade Name Cheli PRN Reason Stop Dose Admin Diphenhydramine HCl 25 mg 01/11/22 17:08 01/11/22 17:58 Diphenhydramine Hcl 50 Mg/Ml Vial IV 01/11/22 17:09 25 mg STAT ONE Administration Diphenhydramine HCl Confirm 01/11/22 17:51 Diphenhydramine Hcl 50 Mg/Ml Vial Administered 01/11/22 17:52 Dose 50 mg .ROUTE .STK-MED ONE Droperidol 1.25 mg 01/11/22 17:06 01/11/22 17:59 Droperidol 5 Mg/2 Ml Vial IV 01/11/22 17:07 1.25 mg STAT ONE Administration Droperidol Confirm 01/11/22 17:50 Droperidol 5 Mg/2 Ml Vial Administered 01/11/22 17:51 Dose 5 mg .ROUTE .STK-MED ONE Hydromorphone HCl 0.5 mg 01/11/22 17:08 01/11/22 17:59 Hydromorphone 1 Mg/1ml Inj 1 Mg/Ml Syringe IV 01/11/22 17:09 0.5 mg STAT ONE Administration Hydromorphone HCl Confirm 01/11/22 17:53 Hydromorphone 1 Mg/1ml Inj 1 Mg/Ml Syringe Administered 01/11/22 17:54 Dose 1 mg .ROUTE .STK-MED ONE Sodium Chloride 1,000 mls @ 999 mls/hr 01/11/22 17:06 01/11/22 19:27 Sodium Chloride 0.9% 1000 Ml IV 01/11/22 18:06 Infused .Q1H1M STA Infusion Sodium Chloride 1,000 mls @ 999 mls/hr 01/11/22 17:08 01/11/22 19:26 Sodium Chloride 0.9% 1000 Ml IV 01/11/22 18:08 Infused .Q1H1M STA Infusion Sodium Chloride Confirm 01/11/22 17:53 Sodium Chloride 0.9% 1000 Ml Administered 01/11/22 17:54 Dose 2,000 mls @ ud .ROUTE .STK-MED ONE Sodium Chloride 1,000 mls @ 100 mls/hr 01/11/22 19:15 01/11/22 20:48 Sodium Chloride 0.9% 1000 Ml IV 02/10/22 19:14 100 mls/hr .Q10H HINA Administration Potassium Chloride 20 meq in 100 mls @ 50 mls/hr 01/12/22 03:45 01/12/22 05:57 Potassium Chloride 20 Meq In Water 100ml IV 01/12/22 07:44 50 mls/hr Q2H HINA Administration Potassium Chloride 20 meq in 100 mls @ 50 mls/hr 01/12/22 13:00 01/12/22 14:49 Potassium Chloride 20 Meq In Water 100ml IV 01/12/22 14:59 50 mls/hr STAT ONE Administration Lidocaine HCl Confirm 01/12/22 04:14 Lidocaine Hcl 2% Viscous 15 Ml Udcup Administered 01/12/22 04:15 Dose 15 ml .ROUTE .STK-MED ONE Lidocaine HCl 15 ml 01/12/22 04:14 01/12/22 04:15 Lidocaine Hcl 2% Viscous 15 Ml Udcup PO 01/12/22 04:15 15 ml STAT ONE Administration Magnesium Hydroxide Confirm 01/12/22 04:13 Magnesium Hydroxide 30 Ml Udcup Administered 01/12/22 04:14 Dose 30 ml .ROUTE .STK-MED ONE Magnesium Hydroxide 30 ml 01/12/22 04:14 01/12/22 04:15 Magnesium Hydroxide 30 Ml Udcup PO 01/12/22 04:15 30 ml STAT ONE Administration Ondansetron HCl 4 mg 01/11/22 17:06 01/11/22 17:58 Ondansetron Hcl 4 Mg/2 Ml Vial IV 01/11/22 17:07 4 mg STAT ONE Administration Ondansetron HCl Confirm 01/11/22 17:50 Ondansetron Hcl 4 Mg/2 Ml Vial Administered 01/11/22 17:51 Dose 4 mg .ROUTE .STK-MED ONE Potassium Bicarbonate 50 meq 01/12/22 03:41 01/12/22 03:53 Potassium Bicarbonate 25 Meq Tab PO 01/12/22 03:42 50 meq STAT ONE Administration Potassium Chloride 20 meq 01/11/22 18:23 01/11/22 18:43 Potassium Chloride Tab 10 Meq Tab PO 01/11/22 18:24 20 meq STAT ONE Administration Potassium Chloride Confirm 01/11/22 18:41 Potassium Chloride Tab 10 Meq Tab Administered 01/11/22 18:42 Dose 20 meq PO .STK-MED ONE Intake & Output (Last 24 hours) 01/10/22 01/11/22 01/12/22 01/13/22 11:59 11:59 11:59 11:59 Intake Total 2682 2420 Output Total 2400 1250 Balance 282 1170 Weight 74.8 kg Microbiology Results (Last 24 hours) 01/11/22 18:16 Clean Catch Midstream Urine Culture - Preliminary <10K NORMAL SKIN ART PROBABLE SKIN CONTAMINANT Laboratory Results (Last 24 hours) 01/12/22 01/12/22 01/12/22 17:05 11:38 11:31 WBC RBC Hgb Hct MCV MCH MCHC RDW Plt Count MPV Gran % Immature Gran % (Auto) Nucleat RBC Rel Count Eos # (Auto) Immature Gran # (Auto) Absolute Lymphs (auto) Absolute Monos (auto) Absolute Nucleated RBC Lymphocytes % Monocytes % Eosinophils % Basophils % Absolute Granulocytes Basophils # pO2/FiO2 Ratio VBG pH VBG pCO2 at Pat Temp VBG pO2 at Pat Temp VBG HCO3 VBG O2 Sat (Shubham) VBG Base Excess VBG Hemoglobin VBG Carboxyhemoglobin POC Potassium Sodium Potassium Chloride Carbon Dioxide Anion Gap BUN Creatinine Estimated GFR Glucose POC Glucometer 104 106 267 H Hemoglobin A1c Calcium Magnesium Total Bilirubin AST ALT Alkaline Phosphatase Troponin I Serum Total Protein Albumin Urinalys Dipstick Clnc Urine Color Urine Appearance Urine pH Ur Specific [place] POC Urine Protein Conf Urine Ketones Urine Nitrite Urine Bilirubin Urine Urobilinogen Urine Leukocytes Urine WBC (Auto) Urine RBC (Auto) U Epithel Cells (Auto) Urine Bacteria (Auto) Urine RBC Ur Culture Indicated? Urine Glucose Ethyl Alcohol Influenza Type A Ag Influenza Type B Ag RSV (PCR) SARS-CoV-2 (PCR) 01/12/22 01/12/22 01/12/22 10:00 09:55 07:43 WBC RBC Hgb Hct MCV MCH MCHC RDW Plt Count MPV Gran % Immature Gran % (Auto) Nucleat RBC Rel Count Eos # (Auto) Immature Gran # (Auto) Absolute Lymphs (auto) Absolute Monos (auto) Absolute Nucleated RBC Lymphocytes % Monocytes % Eosinophils % Basophils % Absolute Granulocytes Basophils # pO2/FiO2 Ratio VBG pH VBG pCO2 at Pat Temp VBG pO2 at Pat Temp VBG HCO3 VBG O2 Sat ([place]) VBG Base Excess VBG Hemoglobin VBG Carboxyhemoglobin POC Potassium Sodium Potassium 3.3 L Chloride Carbon Dioxide Anion Gap BUN Creatinine Estimated GFR Glucose POC Glucometer 306 H Hemoglobin A1c 10.65 H Calcium Magnesium Total Bilirubin AST ALT Alkaline Phosphatase Troponin I Serum Total Protein Albumin Urinalys Dipstick Clnc Urine Color Urine Appearance Urine pH Ur Specific [place] POC Urine Protein Conf Urine Ketones Urine Nitrite Urine Bilirubin Urine Urobilinogen Urine Leukocytes Urine WBC (Auto) Urine RBC (Auto) U Epithel Cells (Auto) Urine Bacteria (Auto) Urine RBC Ur Culture Indicated? Urine Glucose Ethyl Alcohol Influenza Type A Ag Influenza Type B Ag RSV (PCR) SARS-CoV-2 (PCR) 01/12/22 01/12/22 01/12/22 06:15 02:36 02:36 WBC 10.1 RBC 4.75 Hgb 13.9 Hct 40.1 MCV 84.4 MCH 29.3 MCHC 34.7 RDW 11.9 Plt Count 279 MPV 9.3 Gran % 61.1 Immature Gran % (Auto) 0.4 Nucleat RBC Rel Count 0.0 Eos # (Auto) 0.25 Immature Gran # (Auto) 0.04 H Absolute Lymphs (auto) 2.57 Absolute Monos (auto) 1.03 Absolute Nucleated RBC 0.00 Lymphocytes % 25.5 Monocytes % 10.2 Eosinophils % 2.5 Basophils % 0.3 Absolute Granulocytes 6.15 Basophils # 0.03 pO2/FiO2 Ratio VBG pH VBG pCO2 at Pat Temp VBG pO2 at Pat Temp VBG HCO3 VBG O2 Sat ([place]) VBG Base Excess VBG Hemoglobin VBG Carboxyhemoglobin POC Potassium Sodium 129 L D Potassium 3.4 L D 2.7 L* Chloride 86 L D Carbon Dioxide 36 H Anion Gap 9.2 BUN 21 H Creatinine 0.69 Estimated GFR > 60.0 Glucose 207 H POC Glucometer Hemoglobin A1c Calcium 7.8 L D Magnesium Total Bilirubin AST ALT Alkaline Phosphatase Troponin I Serum Total Protein Albumin Urinalys Dipstick Clnc Urine Color Urine Appearance Urine pH Ur Specific [place] POC Urine Protein Conf Urine Ketones Urine Nitrite Urine Bilirubin Urine Urobilinogen Urine Leukocytes Urine WBC (Auto) Urine RBC (Auto) U Epithel Cells (Auto) Urine Bacteria (Auto) Urine RBC Ur Culture Indicated? Urine Glucose Ethyl Alcohol Influenza Type A Ag Influenza Type B Ag RSV (PCR) SARS-CoV-2 (PCR) 01/12/22 01/11/22 01/11/22 02:36 23:31 21:55 WBC RBC Hgb Hct MCV MCH MCHC RDW Plt Count MPV Gran % Immature Gran % (Auto) Nucleat RBC Rel Count Eos # (Auto) Immature Gran # (Auto) Absolute Lymphs (auto) Absolute Monos (auto) Absolute Nucleated RBC Lymphocytes % Monocytes % Eosinophils % Basophils % Absolute Granulocytes Basophils # pO2/FiO2 Ratio 21.0 VBG pH 7.56 H* VBG pCO2 at Pat Temp 37 L VBG pO2 at Pat Temp 106 H VBG HCO3 33.1 H* VBG O2 Sat ([place]) 99.2 VBG Base Excess 10.2 H VBG Hemoglobin 14.8 VBG Carboxyhemoglobin 4.3 POC Potassium 2.9 L* Sodium Potassium Chloride Carbon Dioxide Anion Gap BUN Creatinine Estimated GFR Glucose POC Glucometer 214 H Hemoglobin A1c Calcium Magnesium Total Bilirubin AST ALT Alkaline Phosphatase Troponin I 0.014 Serum Total Protein Albumin Urinalys Dipstick Clnc Urine Color Urine Appearance Urine pH Ur Specific [place] POC Urine Protein Conf Urine Ketones Urine Nitrite Urine Bilirubin Urine Urobilinogen Urine Leukocytes Urine WBC (Auto) Urine RBC (Auto) U Epithel Cells (Auto) Urine Bacteria (Auto) Urine RBC Ur Culture Indicated? Urine Glucose Ethyl Alcohol Influenza Type A Ag Influenza Type B Ag RSV (PCR) SARS-CoV-2 (PCR) 01/11/22 01/11/22 01/11/22 21:40 18:30 18:17 WBC RBC Hgb Hct MCV MCH MCHC RDW Plt Count MPV Gran % Immature Gran % (Auto) Nucleat RBC Rel Count Eos # (Auto) Immature Gran # (Auto) Absolute Lymphs (auto) Absolute Monos (auto) Absolute Nucleated RBC Lymphocytes % Monocytes % Eosinophils % Basophils % Absolute Granulocytes Basophils # pO2/FiO2 Ratio VBG pH VBG pCO2 at Pat Temp VBG pO2 at Pat Temp VBG HCO3 VBG O2 Sat ([place]) VBG Base Excess VBG Hemoglobin VBG Carboxyhemoglobin POC Potassium Sodium Potassium Chloride Carbon Dioxide Anion Gap BUN Creatinine Estimated GFR Glucose POC Glucometer Hemoglobin A1c Calcium Magnesium Total Bilirubin AST ALT Alkaline Phosphatase Troponin I 0.012 Serum Total Protein Albumin Urinalys Dipstick Clnc MAIN LAB Urine Color BROWN Urine Appearance CLOUDY Urine pH 5.5 Ur Specific [place] 1.020 POC Urine Protein Conf 100 Urine Ketones >=160 Urine Nitrite NEGATIVE Urine Bilirubin SMALL Urine Urobilinogen 0.2 Urine Leukocytes NEGATIVE Urine WBC (Auto) >100 Urine RBC (Auto) >101 U Epithel Cells (Auto) RARE Urine Bacteria (Auto) NONE Urine RBC LARGE Ur Culture Indicated? ORDERED SEPARATELY Urine Glucose >=1000 Ethyl Alcohol Influenza Type A Ag NEGATIVE Influenza Type B Ag NEGATIVE RSV (PCR) NEGATIVE SARS-CoV-2 (PCR) NEGATIVE 01/11/22 01/11/22 17:30 17:30 WBC RBC Hgb Hct MCV MCH MCHC RDW Plt Count MPV Gran % Immature Gran % (Auto) Nucleat RBC Rel Count Eos # (Auto) Immature Gran # (Auto) Absolute Lymphs (auto) Absolute Monos (auto) Absolute Nucleated RBC Lymphocytes % Monocytes % Eosinophils % Basophils % Absolute Granulocytes Basophils # pO2/FiO2 Ratio VBG pH VBG pCO2 at Pat Temp VBG pO2 at Pat Temp VBG HCO3 VBG O2 Sat ([place]) VBG Base Excess VBG Hemoglobin VBG Carboxyhemoglobin POC Potassium Sodium 122 L Potassium 2.6 L* Chloride 71 L Carbon Dioxide 36 H Anion Gap 17.9 H BUN 32 H Creatinine 0.85 Estimated GFR > 60.0 Glucose 335 H POC Glucometer Hemoglobin A1c Calcium 9.3 Magnesium 2.0 Total Bilirubin 1.10 AST 24 ALT 21 Alkaline Phosphatase 114 Troponin I < 0.012 Serum Total Protein 8.1 Albumin 4.3 Urinalys Dipstick Clnc Urine Color Urine Appearance Urine pH Ur Specific [place] POC Urine Protein Conf Urine Ketones Urine Nitrite Urine Bilirubin Urine Urobilinogen Urine Leukocytes Urine WBC (Auto) Urine RBC (Auto) U Epithel Cells (Auto) Urine Bacteria (Auto) Urine RBC Ur Culture Indicated? Urine Glucose Ethyl Alcohol < 10 Influenza Type A Ag Influenza Type B Ag RSV (PCR) SARS-CoV-2 (PCR) Orders (Last 24 hours) Category Date Time Status Admit as Inpatient ROUTINE Care 01/11/22 19:02 Completed [employer] Person STAT Care 01/11/22 17:07 Completed Code Status Order ROUTINE Care 01/11/22 19:02 Active EKG-ER Only STAT Care 01/11/22 17:06 Completed IV Care Q6H Care 01/11/22 19:02 Completed IV Insertion STAT Care 01/11/22 17:06 Completed Observation [Place in Observation] ROUTINE Care 01/11/22 20:06 Active Order K Level 2 hours post-inf 2 HRS POST K-INFUSED Care 01/12/22 03:43 Active Order K Level 2 hours post-inf 2 HRS POST K-INFUSED Care 01/12/22 13:01 Active POCT Glucose Check ACHS Care 01/11/22 20:23 Active Telemetry q4h Care 01/12/22 03:43 Active 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 ROUTINE Cons 01/11/22 21:00 Active Carb Diet 1800 [Consistent Carbohydrate Diet 1800 Diet 01/12/22 Lunch Active Calorie] Nutritional Admission Screen ONCE Diet 01/11/22 21:00 Active CHEST 1 VIEW (PORTABLE) Stat Exams 01/11/22 18:47 Completed AMYLASE Stat Lab 01/11/22 17:30 Completed BMP AM.LAB Lab 01/12/22 02:36 Completed BMP AM.LAB Lab 01/13/22 04:00 Ordered BMP Routine Lab 01/12/22 18:00 Ordered CBC AM.LAB Lab 01/13/22 04:00 Ordered CBC W DIFF AM.LAB Lab 01/12/22 02:36 Completed CBC W DIFF Stat Lab 01/11/22 17:30 Completed CMP Stat Lab 01/11/22 17:30 Completed COVID/FLU/RSV Panel Stat Lab 01/11/22 18:30 Completed CULTURE,URINE Stat Lab 01/11/22 18:16 Results ETHYL ALCOHOL Stat Lab 01/11/22 17:30 Completed HCG QUALITATIVE,SERUM Stat Lab 01/11/22 17:30 Completed HEMOGLOBIN A1C Urgent Lab 01/12/22 10:00 Completed LIPASE Stat Lab 01/11/22 17:30 Completed MAG [MAGNESIUM] AM.LAB Lab 01/13/22 04:00 Ordered MAGNESIUM Stat Lab 01/11/22 17:30 Completed POCT GLUCOSE Stat Lab 01/11/22 23:31 Completed POCT GLUCOSE Stat Lab 01/12/22 07:43 Completed POCT GLUCOSE Stat Lab 01/12/22 11:31 Completed POCT GLUCOSE Stat Lab 01/12/22 11:38 Completed POCT GLUCOSE Stat Lab 01/12/22 17:05 Completed Potassium Urgent Lab 01/12/22 06:15 Completed Potassium Urgent Lab 01/12/22 09:55 Completed TROPONIN Q4H Lab 01/11/22 17:30 Completed TROPONIN Q4H Lab 01/11/22 21:40 Completed TROPONIN Q4H Lab 01/12/22 02:36 Completed UA W/RFX CULTURE Stat Lab 01/11/22 18:17 Completed VBG [VENOUS BLOOD GAS] Routine Lab 01/11/22 21:55 Completed Calcium Carbonate 750 mg [Tums EX 750 MG] Med 01/12/22 14:58 Active 750 mg PO Q6HPRN PRN Ceftriaxone 1 GM/50 ML PREMIX* [ROCEPHIN 1 Gm-D5w 50 ml Med 01/12/22 10:00 Active Bag] 1 g in 50 ml IV Q24H10 D5w-0.45NACL W/ 20Meq KCl [D5W/0.45NS W/ 20mEq KCl 1000 Med 01/12/22 04:00 Active ML] 1,000 ml IV 150 mls/hr Diphenhydramine HCl 50 mg/ml [Benadryl 50 mg/ml] Med 01/11/22 17:08 Discontinued 25 mg IV STAT ONE Diphenhydramine HCl 50 mg/ml [Benadryl 50 mg/ml] Med 01/11/22 17:51 Discontinued 50 mg .ROUTE .STK-MED ONE Droperidol [Inapsine] Med 01/11/22 17:06 Discontinued 1.25 mg IV STAT ONE Droperidol [Inapsine] Med 01/11/22 17:50 Discontinued 5 mg .ROUTE .STK-MED ONE Hydrocodone/APAP 5/325 [[place] 5/325 mg] Med 01/12/22 17:00 Active 1 tab PO Q4HPRN PRN Hydromorphone 1 mg/1Ml Inj [Hydromorphone 1 mg/ml Med 01/11/22 17:08 Discontinued Injection] 0.5 mg IV STAT ONE Hydromorphone 1 mg/1Ml Inj [Hydromorphone 1 mg/ml Med 01/11/22 17:53 Discontinued Injection] 1 mg .ROUTE .STK-MED ONE Hydromorphone 1 mg/1Ml Inj [Hydromorphone 1 mg/ml Med 01/11/22 20:15 Active Injection] 1 mg IV Q4H PRN PRN Insulin Glargine [Lantus Insulin] Med 01/12/22 10:00 Active 40 unit SQ BID Insulin Lispro [Humalog] Med 01/12/22 10:00 Active See Dose Instructions SQ UD PRN Lidocaine HCl 2% Viscous [Xylocaine Viscous 2% 15 ml Med 01/12/22 04:14 Discontinued Cup] 15 ml .ROUTE .STK-MED ONE Lidocaine HCl 2% Viscous [Xylocaine Viscous 2% 15 ml Med 01/12/22 04:14 Discontinued Cup] 15 ml PO STAT ONE Magnesium Hydroxide 30 ml [Milk of Magnesia 30 ml Med 01/12/22 04:13 Discontinued ] 30 ml .ROUTE .STK-MED ONE Magnesium Hydroxide 30 ml [Milk of Magnesia 30 ml Med 01/12/22 04:14 Discontinued ] 30 ml PO STAT ONE Medication Intervention Med 01/12/22 17:30 Active 1 each MC .RN TO CHECK NaCl 0.9% 1000 ml [Sodium Chloride 0.9% 1000 ML] 1,000 Med 01/11/22 19:15 Discontinued ml IV 100 mls/hr NaCl 0.9% 1000 ml [Sodium Chloride 0.9% 1000 ML] 1,000 Med 01/12/22 18:00 Active ml IV 150 mls/hr NaCl 0.9% 1000 ml [Sodium Chloride 0.9% 1000 ML] 1,000 Med 01/11/22 17:06 Discontinued ml IV 999 mls/hr NaCl 0.9% 1000 ml [Sodium Chloride 0.9% 1000 ML] 1,000 Med 01/11/22 17:08 Discontinued ml IV 999 mls/hr NaCl 0.9% 1000 ml [Sodium Chloride 0.9% 1000 ML] 2,000 Med 01/11/22 17:53 Discontinued ml .ROUTE UD Ondansetron HCl 4 mg/2 ml [Zofran 4 MG/2 ML VIAL] Med 01/11/22 17:50 Discontinued 4 mg .ROUTE .STK-MED ONE Ondansetron HCl 4 mg/2 ml [Zofran 4 MG/2 ML VIAL] Med 01/11/22 19:02 Active 4 mg IV Q6H PRN PRN Ondansetron HCl 4 mg/2 ml [Zofran 4 MG/2 ML VIAL] Med 01/11/22 17:06 Discontinued 4 mg IV STAT ONE Ondansetron ODT 4 MG [Zofran Odt 4 mg] Med 01/12/22 17:00 Active 4 mg PO Q6H PRN PRN PANTOPRAZOLE 40 mg Tablet [Protonix 40MG Tablet] Med 01/12/22 18:00 Active 40 mg PO DAILY Potassium Bicarbonate [K-Lyte ] Med 01/12/22 03:41 Discontinued 50 meq PO STAT ONE Potassium Chloride 20Meq/100Ml [POTASSIUM CHLORIDE 20 Med 01/12/22 03:45 Discontinued mEq IN WATER 100ML] 20 meq in 100 ml IV Q2H Potassium Chloride 20Meq/100Ml [POTASSIUM CHLORIDE 20 Med 01/12/22 13:00 Discontinued mEq IN WATER 100ML] 20 meq in 100 ml IV STAT Potassium Chloride Tab* [Klor Con] Med 01/11/22 18:41 Discontinued 20 meq PO .STK-MED ONE Potassium Chloride Tab* [Klor Con] Med 01/11/22 18:23 Discontinued 20 meq PO STAT ONE Propranolol HCl [Inderal ] Med 01/12/22 10:00 Active 60 mg PO BID Smoking Cessation Education ONCE RT 01/11/22 21:00 Completed Patient Care Notes (Last 24 hours) 01/12/22 17:54 Nursing Note by Taylor Covarrubias UPDATED PT THAT MEDICATION MOUNJARO IS NON FORMULARY AND THAT PT WOULD NEED TO BRING IN HOME SUPPLY IF WANTING TO TAKE MEDICATION WHILE IN HOSPITAL. PT STATES THAT SHE IS NOT BRINGING IT IN THAT SHE PLANS TO DISCHARGE HOME TOMORROW AND WILL NOT NEED THAT MEDICATION. Initialized on 01/12/22 17:54 - END OF NOTE 01/12/22 14:59 Nursing Note by Taylor Covarrubias REC. ORDER FOR TUMS Q6HPRN FOR INDIGESTION. Initialized on 01/12/22 14:59 - END OF NOTE 01/12/22 12:52 Nursing Note by Taylor Covarrubias ROUNDED ON PT WITH DR. LOERA. WOULD LIKE FOR PT TO STAY OVERNIGHT. REC. THE FOLLOWING ORDERS: K-RIDER X 1, CHECK BMP 2 HRS POST INFUSION. ONCE CURRENT IV FLUID BAG COMPLETES (D5 1/2 NS W 20KCL) SWITCH TO NS AND CONTINUE TO RUN AT 150CC/HR. Initialized on 01/12/22 12:52 - END OF NOTE 01/12/22 12:00 Nursing Note by Taylor Covarrubias ACCU CHECK RESULT OF 106 AT 1138 INACCURATE - WRONG CHART. CORRECT ACCU CHECK RESULT 267. Initialized on 01/12/22 12:00 - END OF NOTE 01/12/22 10:01 Nursing Note by Taylor Covarrubias REC. THE FOLLOWING ORDERS FROM DR. LOERA: HIGH DOSE HUMALOG SLIDING SCALE AND CHANGE DIET TO 1800 REGIS CARB CONTROLLED. Initialized on 01/12/22 10:01 - END OF NOTE 01/12/22 09:32 Nursing Note by Taylor Covarrubias CALLED DR. LOERA AT [facility] AND LEFT MESSAGE WITH CYNTHIA IN REGARDS TO PT ACCU CHECK THIS AM AND NO SLIDING SCALE INSULIN ORDERS. ALSO NOTIFIED DENIES THAT HOME MEDICATION LIST WAS FAXED OVER A FEW MINUTES PRIOR. CYNTHIA STATES SHE WILL DISCUSS WITH MD AND RETURN PHONE CALL. Initialized on 01/12/22 09:32 - END OF NOTE 01/12/22 08:30 (created 01/12/22 09:33) Nursing Note by Taylor Covarrubias ATTEMPTED TO CALL DR. LOERA AGAIN AT THIS TIME WITH NO ANSWER. WILL CALL [facility] AFTER 0900. Initialized on 01/12/22 09:33 - END OF NOTE 01/12/22 07:59 Nursing Note by Taylor Covarrubias ATTEMPTED TO CALL DR. LOERA TO UPDATE OF PATIENT OF ACCU CHECK OF 306 THIS AM AND NO SLIDING SCALE ORDER. UNABLE TO REACH AT THIS TIME. 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
[2022-01-12] MEDS ORDERED: Protonix 40MG Tablet PO SCH (18:00)
[2022-01-12 18:31] LABS: ANION GAP 5.8 MEQ/L (5-15); BLOOD UREA NITROGEN 14 mg/dL (7-17); CHLORIDE 91 mmol/L (98-107); Carbon Dioxide 38 mmol/L (22-30); Creatinine 1 0.69 mg/dL (0.52-1.04); EST GLOMERULAR FILTRATION RATE > 60.0 ML/MIN; Glucose 147 mg/dL (74-106); Potassium 3.3 mmol/L (3.5-5.1); SODIUM 132 mmol/L (137-145)
[2022-01-12] MEDS: Sodium Chloride 0.9% 1000 ML 1,000 ML IV SCH (19:45)
[2022-01-13] MEDS: Sodium Chloride 0.9% 1000 ML 1,000 ML IV SCH ×3 (02:48→07:47)
[2022-01-13] MEDS: D5W/0.45NS W/ 20mEq KCl 1000 ML 1,000 ML IV SCH (04:52)
[2022-01-13 05:31] LABS: Hematocrit 34.1 % (35-47); Hemoglobin 11.4 g/dL (12.0-16.0); Mean Cell Volume 87.7 fL (78-100); Mean Corpuscular Hemoglobin 29.3 pg (26-32); Mean Corpuscular Hgb Concent. 33.4 g/dL (32-36); Mean Platelet Volume 9.5 fL (7.5-11.0); Platelet Count 231 x10^3/uL (150-450); Red Blood Count 3.89 x10^6/uL (4.1-5.4); Red Cell Distribution Width 12.1 % (11.5-14.0); White Blood Count 7.1 x10^3/uL (4.0-10.5)
[2022-01-13 05:52] LABS: ANION GAP 7.6 MEQ/L (5-15); BLOOD UREA NITROGEN 14 mg/dL (7-17); CHLORIDE 99 mmol/L (98-107); Carbon Dioxide 31 mmol/L (22-30); Creatinine 1 0.63 mg/dL (0.52-1.04); EST GLOMERULAR FILTRATION RATE > 60.0 ML/MIN; Glucose 148 mg/dL (74-106); MAGNESIUM 2.1 mg/dL (1.6-2.3); Potassium 3.1 mmol/L (3.5-5.1); SODIUM 135 mmol/L (137-145)
[2022-01-13] MEDS: Hydromorphone 1 mg/ml Injection IV PRN (06:25)
[2022-01-13 07:24] VITALS: BP 106/52; PULSE 85; O2SAT 98
--- NOTE | 2022-01-13 13:08 | PCM.DS ---
Discharge Summary Date of Admission: 01/11/22 20:06 Admitting Physician: AMEE LOERA Primary Care Provider: AMEE LOERA Allergies Allergies ketorolac [From Toradol] Allergy (Verified 01/11/22 16:54) promethazine [From Phenergan] Allergy (Verified 01/11/22 16:54) tramadol Allergy (Verified 01/11/22 16:54) diphenhydramine [From Benadryl] Adverse Reaction (Verified 01/11/22 16:54) Hospital Summary - Hospital Course Hospital Course: Chief Complaint Diagnosis nausea and vomiting for 2-3 days Allergies Allergy/AdvReac Type Severity Reaction Status Date / Time ketorolac [From Toradol] Allergy Verified 01/11/22 16:54 promethazine [From Phenergan] Allergy Verified 01/11/22 16:54 tramadol Allergy Verified 01/11/22 16:54 diphenhydramine AdvReac Verified 01/11/22 16:54 [From Benadryl] Vital Signs (Last 24 hours) Temp Pulse Resp BP Pulse Ox 01/13/22 07:23 97.4 F 85 16 106/52 98 01/13/22 04:00 98.2 F 76 16 97/49 96 01/13/22 00:00 97.7 F 106 H 17 110/56 94 L 01/12/22 20:00 98.9 F 96 H 16 108/59 96 01/12/22 16:00 97.7 F 81 16 100/59 99 Home Medications Medication Instructions Recorded Confirmed Last Taken Type Insulin Detemir [Levemir] 40 units SQ BID 01/11/22 01/11/22 01/06/22 History Propranolol HCl [Inderal ] 60 mg PO BID 01/11/22 01/11/22 Unknown History Tirzepatide [Mounjaro] 0.5 ml SQ WEEKLY 01/11/22 01/12/22 Unknown History Hydrocodone/Acetaminophen 1 tab PO Q4-6HPRN PRN MDD 3 01/12/22 01/12/22 Unknown History [Hydrocodone-Acetamin 5-325 mg] PANTOPRAZOLE 40 mg Tablet 1 tab PO DAILY 01/12/22 01/12/22 Unknown History [Protonix 40MG Tablet] Cephalexin Mh 500 mg [Keflex 500 500 mg PO QID 5 Days #20 cap 01/13/22 Unknown Rx mg] Current Medications Discontinued Medications Generic Name Dose Route Start Last Admin Trade Name Freq PRN Reason Stop Dose Admin Hydrocodone Bitart/Acetaminophen 1 tab 01/12/22 17:00 Hydrocodone/Apap 5/325 Mg Tablet PO 01/17/22 16:59 Q4HPRN PRN PAIN Calcium Carbonate/Glycine 750 mg 01/12/22 14:58 01/12/22 22:01 Calcium Carbonate 750 Mg 750 Mg Tab.Chew PO 02/11/22 14:57 750 mg Q6HPRN PRN Administration INDIGESTION Diphenhydramine HCl 25 mg 01/11/22 17:08 01/11/22 17:58 Diphenhydramine Hcl 50 Mg/Ml Vial IV 01/11/22 17:09 25 mg STAT ONE Administration Diphenhydramine HCl Confirm 01/11/22 17:51 Diphenhydramine Hcl 50 Mg/Ml Vial Administered 01/11/22 17:52 Dose 50 mg .ROUTE .STK-MED ONE Droperidol 1.25 mg 01/11/22 17:06 01/11/22 17:59 Droperidol 5 Mg/2 Ml Vial IV 01/11/22 17:07 1.25 mg STAT ONE Administration Droperidol Confirm 01/11/22 17:50 Droperidol 5 Mg/2 Ml Vial Administered 01/11/22 17:51 Dose 5 mg .ROUTE .STK-MED ONE Hydromorphone HCl 0.5 mg 01/11/22 17:08 01/11/22 17:59 Hydromorphone 1 Mg/1ml Inj 1 Mg/Ml Syringe IV 01/11/22 17:09 0.5 mg STAT ONE Administration Hydromorphone HCl Confirm 01/11/22 17:53 Hydromorphone 1 Mg/1ml Inj 1 Mg/Ml Syringe Administered 01/11/22 17:54 Dose 1 mg .ROUTE .STK-MED ONE Hydromorphone HCl 1 mg 01/11/22 20:15 01/13/22 06:25 Hydromorphone 1 Mg/1ml Inj 1 Mg/Ml Syringe IV 01/16/22 20:14 1 mg Q4H PRN PRN Administration PAIN Sodium Chloride 1,000 mls @ 999 mls/hr 01/11/22 17:06 01/11/22 19:27 Sodium Chloride 0.9% 1000 Ml IV 01/11/22 18:06 Infused .Q1H1M STA Infusion Sodium Chloride 1,000 mls @ 999 mls/hr 01/11/22 17:08 01/11/22 19:26 Sodium Chloride 0.9% 1000 Ml IV 01/11/22 18:08 Infused .Q1H1M STA Infusion Sodium Chloride Confirm 01/11/22 17:53 Sodium Chloride 0.9% 1000 Ml Administered 01/11/22 17:54 Dose 2,000 mls @ ud .ROUTE .STK-MED ONE Sodium Chloride 1,000 mls @ 100 mls/hr 01/11/22 19:15 01/13/22 07:47 Sodium Chloride 0.9% 1000 Ml IV 02/10/22 19:14 Not Given .Q10H HINA Ceftriaxone Sodium/Dextrose 1 g in 50 mls @ 100 mls/hr 01/12/22 10:00 01/12/22 09:08 Rocephin 1 Gm-D5w 50 Ml Bag IV 01/15/22 09:59 100 mls/hr Q24H10 HINA Administration Potassium Chloride 20 meq in 100 mls @ 50 mls/hr 01/12/22 03:45 01/12/22 05:57 Potassium Chloride 20 Meq In Water 100ml IV 01/12/22 07:44 50 mls/hr Q2H HINA Administration Potassium Chloride/Dextrose/Sod Cl 1,000 mls @ 150 mls/hr 01/12/22 04:00 01/13/22 04:52 D5w/0.45ns W/ 20meq Kcl 1000 Ml IV 01/12/22 18:00 Not Given .Q6H40M HINA Potassium Chloride 20 meq in 100 mls @ 50 mls/hr 01/12/22 13:00 01/12/22 14:49 Potassium Chloride 20 Meq In Water 100ml IV 01/12/22 14:59 50 mls/hr STAT ONE Administration Sodium Chloride 1,000 mls @ 150 mls/hr 01/12/22 18:00 01/13/22 07:46 Sodium Chloride 0.9% 1000 Ml IV 02/11/22 17:59 Not Given .Q6H40M HINA Insulin Glargine 40 unit 01/12/22 10:00 01/12/22 22:00 Insulin Glargine 1 Unit SQ 02/11/22 09:59 40 unit BID HINA Administration Insulin Human Lispro 0 unit 01/12/22 10:00 01/12/22 22:00 Insulin Lispro 1 Unit SQ 02/11/22 09:59 4 unit UD PRN Administration HYPERGLYCEMIA Lidocaine HCl Confirm 01/12/22 04:14 Lidocaine Hcl 2% Viscous 15 Ml Udcup Administered 01/12/22 04:15 Dose 15 ml .ROUTE .STK-MED ONE Lidocaine HCl 15 ml 01/12/22 04:14 01/12/22 04:15 Lidocaine Hcl 2% Viscous 15 Ml Udcup PO 01/12/22 04:15 15 ml STAT ONE Administration Magnesium Hydroxide Confirm 01/12/22 04:13 Magnesium Hydroxide 30 Ml Udcup Administered 01/12/22 04:14 Dose 30 ml .ROUTE .STK-MED ONE Magnesium Hydroxide 30 ml 01/12/22 04:14 01/12/22 04:15 Magnesium Hydroxide 30 Ml Udcup PO 01/12/22 04:15 30 ml STAT ONE Administration Miscellaneous Information 1 each 01/12/22 17:30 Medication Intervention 1 Each Each 02/11/22 17:29 .RN TO CHECK HINA Ondansetron HCl 4 mg 01/11/22 17:06 01/11/22 17:58 Ondansetron Hcl 4 Mg/2 Ml Vial IV 01/11/22 17:07 4 mg STAT ONE Administration Ondansetron HCl Confirm 01/11/22 17:50 Ondansetron Hcl 4 Mg/2 Ml Vial Administered 01/11/22 17:51 Dose 4 mg .ROUTE .STK-MED ONE Ondansetron HCl 4 mg 01/11/22 19:02 01/12/22 04:07 Ondansetron Hcl 4 Mg/2 Ml Vial IV 02/10/22 19:01 4 mg Q6H PRN PRN Administration NAUSEA/VOMITING Ondansetron HCl 4 mg 01/12/22 17:00 Zofran 4 Mg/Udtablet Orally Disintegrating PO 02/11/22 16:59 Q6H PRN PRN NAUSEA Pantoprazole Sodium 40 mg 01/12/22 18:00 01/12/22 18:23 Protonix (Pantoprazole) 40 Mg Tablet PO 02/11/22 17:59 40 mg DAILY HINA Administration Potassium Bicarbonate 50 meq 01/12/22 03:41 01/12/22 03:53 Potassium Bicarbonate 25 Meq Tab PO 01/12/22 03:42 50 meq STAT ONE Administration Potassium Chloride 20 meq 01/11/22 18:23 01/11/22 18:43 Potassium Chloride Tab 10 Meq Tab PO 01/11/22 18:24 20 meq STAT ONE Administration Potassium Chloride Confirm 01/11/22 18:41 Potassium Chloride Tab 10 Meq Tab Administered 01/11/22 18:42 Dose 20 meq PO .STK-MED ONE Propranolol HCl 60 mg 01/12/22 10:00 01/12/22 21:30 Propranolol Hcl 20 Mg Tablet PO 02/11/22 09:59 Not Given BID HIAN Intake & Output (Last 24 hours) 01/11/22 01/12/22 01/13/22 01/14/22 11:59 11:59 11:59 11:59 Intake Total 2682 4587 Output Total 2400 1360 Balance 282 3227 Weight 74.8 kg 74.9 kg Microbiology Results (Last 24 hours) 01/11/22 18:16 Clean Catch Midstream Urine Culture - Final MIXED ART; 3 OR MORE TYPES. NO PREDOMINANT ORGANISM. NO FURTHER WORKUP. PLEASE RESUBMIT IF CLINICALLY INDICATED. Laboratory Results (Last 24 hours) 01/13/22 01/13/22 01/13/22 07:37 04:35 04:35 WBC 7.1 RBC 3.89 L Hgb 11.4 L Hct 34.1 L MCV 87.7 MCH 29.3 MCHC 33.4 RDW 12.1 Plt Count 231 MPV 9.5 Sodium 135 L Potassium 3.1 L Chloride 99 Carbon Dioxide 31 H Anion Gap 7.6 BUN 14 Creatinine 0.63 Estimated GFR > 60.0 Glucose 148 H POC Glucometer 168 H Calcium 8.0 L Magnesium 2.1 01/12/22 01/12/22 01/12/22 21:39 17:52 17:05 WBC RBC Hgb Hct MCV MCH MCHC RDW Plt Count MPV Sodium 132 L Potassium 3.3 L Chloride 91 L Carbon Dioxide 38 H Anion Gap 5.8 BUN 14 Creatinine 0.69 Estimated GFR > 60.0 Glucose 147 H POC Glucometer 194 H 104 Calcium 8.0 L Magnesium Orders (Last 24 hours) Category Date Time Status Order K Level 2 hours post-inf 2 HRS POST K-INFUSED Care 01/12/22 13:01 Completed Discharge Routine Discharge 01/13/22 Ordered BMP AM.LAB Lab 01/13/22 04:35 Completed BMP Routine Lab 01/12/22 17:52 Completed CBC AM.LAB Lab 01/13/22 04:35 Completed MAG [MAGNESIUM] AM.LAB Lab 01/13/22 04:35 Completed POCT GLUCOSE Stat Lab 01/12/22 17:05 Completed POCT GLUCOSE Stat Lab 01/12/22 21:39 Completed POCT GLUCOSE Stat Lab 01/13/22 07:37 Completed Calcium Carbonate 750 mg [Tums EX 750 MG] Med 01/12/22 14:58 Discontinued 750 mg PO Q6HPRN PRN Hydrocodone/APAP 5/325 [[place] 5/325 mg] Med 01/12/22 17:00 Discontinued 1 tab PO Q4HPRN PRN Medication Intervention Med 01/12/22 17:30 Discontinued 1 each MC .RN TO CHECK NaCl 0.9% 1000 ml [Sodium Chloride 0.9% 1000 ML] 1,000 Med 01/12/22 18:00 Discontinued ml IV 150 mls/hr Ondansetron ODT 4 MG [Zofran Odt 4 mg] Med 01/12/22 17:00 Discontinued 4 mg PO Q6H PRN PRN PANTOPRAZOLE 40 mg Tablet [Protonix 40MG Tablet] Med 01/12/22 18:00 Discontinued 40 mg PO DAILY Potassium Chloride 20Meq/100Ml [POTASSIUM CHLORIDE 20 Med 01/12/22 13:00 Discontinued mEq IN WATER 100ML] 20 meq in 100 ml IV STAT Patient Care Notes (Last 24 hours) 01/13/22 10:48 Case Management Note by Nelly Shea S/W PATIENT THIS AM PRIOR TO BEING DCD- SHE DENIES ANY NEW NEEDS AT TIME OF DC. SHE PLANS TO RETURN HOME TO HER PRIOR LEVEL OF FUNCTIONING AT TIME OF DC. SHE REPORTS SHE HAS ALL OF HER DIABETIC SUPPLIES Initialized on 01/13/22 10:48 - END OF NOTE 01/12/22 18:49 Nursing Note by Taylor Covarrubias PT RETURNED TO ROOM AT THIS TIME. Initialized on 01/12/22 18:49 - END OF NOTE 01/12/22 18:40 Nursing Note by Taylor Covarrubias PT UNHOOKED FROM IV FLUIDS ET TELEMETRY AT THIS TIME TO GO SIT OUTSIDE WITH FAMILY. DR. LOERA TOLD PATIENT THIS WAS OK WHILE ROUNDING TODAY. Initialized on 01/12/22 18:40 - END OF NOTE 01/12/22 17:54 Nursing Note by Taylor Covarrubias UPDATED PT THAT MEDICATION MOUNJARO IS NON FORMULARY AND THAT PT WOULD NEED TO BRING IN HOME SUPPLY IF WANTING TO TAKE MEDICATION WHILE IN HOSPITAL. PT STATES THAT SHE IS NOT BRINGING IT IN THAT SHE PLANS TO DISCHARGE HOME TOMORROW AND WILL NOT NEED THAT MEDICATION. Initialized on 01/12/22 17:54 - END OF NOTE 01/12/22 14:59 Nursing Note by Taylor Covarrubias REC. ORDER FOR TUMS Q6HPRN FOR INDIGESTION. Initialized on 01/12/22 14:59 - END OF NOTE - Vitals & Intake/Output Vital Signs: Vital Signs Temperature 97.4 F 01/13/22 07:23 Pulse Rate 85 01/13/22 07:23 Respiratory Rate 16 01/13/22 07:23 Blood Pressure 106/52 01/13/22 07:23 O2 Sat by Pulse Oximetry 98 01/13/22 07:23 Intake & Output: Intake & Output 01/11/22 01/12/22 01/13/22 01/14/22 11:59 11:59 11:59 11:59 Intake Total 2682 4587 Output Total 2400 1360 Balance 282 3227 Weight 74.8 kg 74.9 kg - Lab Result Diagrams: 01/13/22 04:35 01/13/22 04:35 Lab Results-Last 24 Hrs: Lab Results-Last 24 Hours 01/12/22 01/12/22 01/12/22 Range/Units 17:05 17:52 21:39 WBC (4.0-10.5) x10^3/uL RBC (4.1-5.4) x10^6/uL Hgb (12.0-16.0) g/dL Hct (35-47) % MCV (78-100) fL MCH (26-32) pg MCHC (32-36) g/dL RDW (11.5-14.0) % Plt Count (150-450) x10^3/uL MPV (7.5-11.0) fL Sodium 132 L (137-145) mmol/L Potassium 3.3 L (3.5-5.1) mmol/L Chloride 91 L (98-107) mmol/L Carbon Dioxide 38 H (22-30) mmol/L Anion Gap 5.8 (5-15) MEQ/L BUN 14 (7-17) mg/dL Creatinine 0.69 (0.52-1.04) mg/dL Estimated GFR > 60.0 ML/MIN Glucose 147 H (74-106) mg/dL POC Glucometer 104 194 H (74 to 106) mg/dL Calcium 8.0 L (8.4-10.2) mg/dL Magnesium (1.6-2.3) mg/dL 01/13/22 01/13/22 01/13/22 Range/Units 04:35 04:35 07:37 WBC 7.1 (4.0-10.5) x10^3/uL RBC 3.89 L (4.1-5.4) x10^6/uL Hgb 11.4 L (12.0-16.0) g/dL Hct 34.1 L (35-47) % MCV 87.7 (78-100) fL MCH 29.3 (26-32) pg MCHC 33.4 (32-36) g/dL RDW 12.1 (11.5-14.0) % Plt Count 231 (150-450) x10^3/uL MPV 9.5 (7.5-11.0) fL Sodium 135 L (137-145) mmol/L Potassium 3.1 L (3.5-5.1) mmol/L Chloride 99 (98-107) mmol/L Carbon Dioxide 31 H (22-30) mmol/L Anion Gap 7.6 (5-15) MEQ/L BUN 14 (7-17) mg/dL Creatinine 0.63 (0.52-1.04) mg/dL Estimated GFR > 60.0 ML/MIN Glucose 148 H (74-106) mg/dL POC Glucometer 168 H (74 to 106) mg/dL Calcium 8.0 L (8.4-10.2) mg/dL Magnesium 2.1 (1.6-2.3) mg/dL Micro Results-Entire Visit: Microbiology 01/11/22 18:16 Urine Culture - Final Clean Catch Midstream MIXED ART; 3 OR MORE TYPES. NO PREDOMINANT ORGANISM. NO FURTHER WORKUP. PLEASE RESUBMIT IF CLINICALLY INDICATED. Accuchecks Date 01/12/22 Date 01/12/22 - Radiology Exams Ordered Rad Exams-Entire Visit: Radiology Procedures Category Date Time Status CHEST 1 VIEW (PORTABLE) Stat Exams 01/11/22 18:47 Completed - Procedures and Test Procedures and Tests throughout Hospitalization: Therapy Orders & Screens 01/11/22 21:00 Smoking Cessation Education ONCE Comment: Diagnosis: [id number] Smoking Status: Current every day smoker How long have you smoked: "forever" Do you dip or chew tobacco: No Discharge Exam General Appearance: no apparent distress, alert Neurologic Exam: alert, oriented x 3, cooperative, normal mood/affect, nml cerebellar function, sensation nml, No motor deficits Eye Exam: PERRL, EOMI, eyes nml inspection Ears, Nose, Throat Exam: normal ENT inspection, pharynx normal, moist mucous membranes Neck Exam: normal inspection, non-tender, supple, full range of motion Respiratory Exam: normal breath sounds, lungs clear, No respiratory distress Cardiovascular Exam: regular rate/rhythm, normal heart sounds Gastrointestinal/Abdomen Exam: soft, No tenderness, No mass Pelvic Exam: deferred Rectal Exam: deferred Back Exam: normal inspection, normal range of motion, No CVA tenderness, No vertebral tenderness Extremity Exam: normal inspection, normal range of motion Skin Exam: normal color, warm, dry Final Diagnosis/Problem List - Final Discharge Diagnosis/Problem (1) DKA (diabetic ketoacidosis) Status: Resolved Code(s): E11.10 - TYPE 2 DIABETES MELLITUS WITH KETOACIDOSIS WITHOUT COMA (2) Type 2 diabetes mellitus Status: Chronic - Discharge Discharge Date: 01/13/22 Disposition: Home, Self-Care Condition: Stable Prescriptions: New Cephalexin Mh 500 mg [Keflex 500 mg] 500 mg PO QID 5 Days #20 cap Continue Ondansetron ODT 4 MG [Zofran Odt 4 mg] 4 mg PO Q6H PRN PRN #10 tablet PRN Reason: Nausea Insulin Detemir [Levemir] 40 units SQ BID Propranolol HCl [Inderal ] 60 mg PO BID Tirzepatide [Mounjaro] 0.5 ml SQ WEEKLY Hydrocodone/Acetaminophen [Hydrocodone-Acetamin 5-325 mg] 1 tab PO Q4- 6HPRN PRN MDD 3 PRN Reason: Pain PANTOPRAZOLE 40 mg Tablet [Protonix 40MG Tablet] 1 tab PO DAILY Instructions: Diabetic Ketoacidosis (DC) Follow up with: AMEE LOERA MD [Primary Care Provider] - 01/19/22 3:00 pm
== END 2022-01-13 09:36 | disposition home or self-care (01) ==
LOC: ED 16:42 → MED SURG 20:06 → INTOOBSV 20:06
PROVIDERS: ADMIT General Practice; ATTEND General Practice
DX: E11.10 Type 2 diabetes mellitus with ketoacidosis without coma (principal); R00.0 Tachycardia, unspecified; E87.6 Hypokalemia; Z79.899 Other long term (current) drug therapy; Z20.828 Contact with and (suspected) exposure to other viral communicable diseases; Z72.0 Tobacco use
CPT/HCPCS: 0241U; 36000; 36415; 71045; 80048; 80053; 81015; 82150; 82805; 82947; 83036; 83690; 83735; 84132; 84484; 84703; 85025; 85027; 87086; 93005; 93041; 93268; 96360; 96374; 96375; 99285; 99291; G0378; G0480; 80307; J0696; J1170; J1200; J1817; J2405; J3480; A9270-GY

== ENCOUNTER 2022-01-21 16:24 | Observation (INO) | payer OTHER ==
--- NOTE | 2022-01-21 16:28 | ERPHSYRPT ---
- History of Present Illness Time Seen by Provider: 01/21/22 16:28 Historian: patient Exam Limitations: no limitations Physician History: This is a 36-year-old diabetic white female who received her first once a month injection to help treat her diabetes Sunday of last week. In the subsequent days she has had several episodes of vomiting. She was seen by her primary care physician on prior to this evaluation and was told to come to the emergency department. She went to [facility] in [facility] where they treated her but did not admit her into the hospital. Patient's symptoms of vomiting have persisted. Patient has a history of recurrent DKA. She does not have any chest pain. She is not short of breath. She is tachycardic and feels her heart racing a bit. Timing/Duration: day(s) (2) Activities at Onset: none Abdominal Pain Onset Location: other (No abdominal pain) Severity of Pain-Max: none Severity of Pain-Current: none Modifying Factors: Improves With: vomiting Associated Symptoms: loss of appetite, nausea, vomiting, weakness, No chest pain, No fever/chills, No shortness of breath Previous symptoms: same symptoms as today, recently seen, recently treated Allergies/Adverse Reactions: ketorolac [From Toradol] Allergy (Verified 01/11/22 16:54) promethazine [From Phenergan] Allergy (Verified 01/11/22 16:54) tramadol Allergy (Verified 01/11/22 16:54) diphenhydramine [From Benadryl] Adverse Reaction (Verified 01/11/22 16:54) Home Medications: Insulin Detemir [Levemir] 40 units SQ BID 01/11/22 [History] Propranolol HCl [Inderal ] 60 mg PO BID 01/11/22 [History] Tirzepatide [Mounjaro] 0.5 ml SQ WEEKLY 01/11/22 [History] Hydrocodone/Acetaminophen [Hydrocodone-Acetamin 5-325 mg] 1 tab PO Q4-6HPRN PRN MDD 3 01/12/22 [History] PANTOPRAZOLE 40 mg Tablet [Protonix 40MG Tablet] 1 tab PO DAILY 01/12/22 [History] Hx Tetanus, Diphtheria Vaccination/Date Given: Yes Hx Influenza Vaccination/Date Given: No Hx Pneumococcal Vaccination/Date Given: No Travel Risk - International Travel Have you traveled outside of the country in past 3 weeks: No - Coronavirus Screening Are you exhibiting any of the following symptoms?: No Close contact with a COVID-19 positive Pt in past 14-21 Days: No - Vaccine Status Have you recieved a Covid-19 vaccination: No - Review of Systems Constitutional: Weakness Eyes: No Symptoms Ears, Nose, & Throat: No Symptoms Respiratory: No Symptoms Cardiac: Palpitations, No Chest Pain Abdominal/Gastrointestinal: Nausea, Vomiting, No Abdominal Pain, No Diarrhea, No Constipation Genitourinary Symptoms: No Symptoms Musculoskeletal: No Symptoms Skin: No Symptoms Neurological: No Symptoms Psychological: No Symptoms Endocrine: No Symptoms Hematologic/Lymphatic: No Symptoms Immunological/Allergic: No Symptoms All Other Systems: Reviewed and Negative - Past Medical History Pertinent Past Medical History: Yes Neurological History: Migraines ENT History: No Pertinent History Cardiac History: No Pertinent History Respiratory History: No Pertinent History Endocrine Medical History: Diabetes Type II Musculoskeletal History: No Pertinent History GI Medical History: Gallbladder Disease History: No Pertinent History Psycho-Social History: Anxiety, Depression Female Reproductive Disorders: No Pertinent History Other Medical History: 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 CARPAL TUNNEL BILATERALLY. - Past Surgical History Past Surgical History: Yes Neuro Surgical History: No Pertinent History Cardiac: No Pertinent History Respiratory: No Pertinent History Gastrointestinal: No Pertinent History Genitourinary: No Pertinent History Musculoskeletal: No Pertinent History Female Surgical History: Section, Tubal Ligation Other Surgical History: 2 c sections - Social History Smoking Status: Current every day smoker How long have you smoked: "forever" Exposure to second hand smoke: Yes Alcohol Use: None Drug Use: none Patient Lives Alone: No Significant Family History: no pertinent family hx - Nursing Vital Signs Nursing Vital Signs: Initial Vital Signs Temperature 97.8 F 01/21/22 16:38 Pulse Rate 124 H 01/21/22 16:38 Respiratory Rate 22 01/21/22 16:38 Blood Pressure 106/85 01/21/22 16:38 O2 Sat by Pulse Oximetry 100 01/21/22 16:38 Pain Scale Pain Intensity 8 - Physical Exam General Appearance: mild distress, alert, anxiety Eye Exam: PERRL/EOMI, eyes nml inspection Ears, Nose, Throat Exam: normal ENT inspection, dry mucous membranes Neck Exam: normal inspection, non-tender, supple, full range of motion Respiratory Exam: normal breath sounds, lungs clear, airway intact, No chest tenderness, No respiratory distress Cardiovascular Exam: tachycardia Gastrointestinal/Abdomen Exam: soft, normal bowel sounds, No tenderness Pelvic Exam: not done Rectal Exam: not done Back Exam: normal inspection, normal range of motion, No CVA tenderness, No vertebral tenderness Extremity Exam: normal inspection, normal range of motion, pelvis stable Neurologic Exam: alert, oriented x 3, cooperative, chief load dispatcher II-XII nml as tested, normal mood/affect, nml cerebellar function, nml station & gait, sensation nml Skin Exam: normal color, warm, dry Lymphatic Exam: No adenopathy SpO2 Interpretation: normal O2 Delivery: Room Air - Course Nursing assessment & vital signs reviewed: Yes EKG Interpreted by Me: RATE ([id number]), Sinus Tach, NORMAL INTERVALS, NORMAL QRS, NORMAL ST-T, Other (No acute ischemic changes on today's EKG.) Ordered Tests: Active Orders 24 hr Category Date Time Status Business Relations Manager STAT Care 01/21/22 16:59 Active EKG-ER Only STAT Care 01/21/22 16:59 Active IV Insertion STAT Care 01/21/22 16:59 Active Pulse Oximetry (ED) STAT Care 01/21/22 16:59 Active Telemetry q4h Care 01/21/22 18:17 Active CBC W DIFF Stat Lab 01/21/22 17:18 Completed CMP Stat Lab 01/21/22 17:18 Completed CULTURE,URINE Stat Lab 01/21/22 17:41 Received Lactic Acid Urgent Lab 01/21/22 17:30 Completed MAGNESIUM Stat Lab 01/21/22 17:18 Completed UA W/RFX CULTURE Stat Lab 01/21/22 17:41 Completed Transfer Order Routine Transfer 01/21/22 Ordered Medication Summary Generic Name Dose Route Start Last Admin Trade Name Freq PRN Reason Stop Dose Admin Sodium Chloride 1,000 mls @ 999 mls/hr 01/21/22 18:17 01/21/22 18:40 Sodium Chloride 0.9% 1000 Ml IV 01/21/22 19:17 999 mls/hr .Q1H1M STA Administration Potassium Chloride 20 meq in 100 mls @ 50 mls/hr 01/21/22 18:17 01/21/22 18:41 Potassium Chloride 20 Meq In Water 100ml IV 01/21/22 20:16 50 mls/hr STAT ONE Administration Ceftriaxone Sodium/Dextrose 1 g in 50 mls @ 100 mls/hr 01/21/22 18:40 Rocephin 1 Gm-D5w 50 Ml Bag IV 01/21/22 19:09 STAT STA Discontinued Medications Generic Name Dose Route Start Last Admin Trade Name Cheli PRN Reason Stop Dose Admin Hydromorphone HCl 1 mg 01/21/22 18:15 01/21/22 18:21 Hydromorphone 1 Mg/1ml Inj 1 Mg/Ml Syringe IV 01/21/22 18:16 1 mg STAT ONE Administration Hydromorphone HCl Confirm 01/21/22 18:19 Hydromorphone 1 Mg/1ml Inj 1 Mg/Ml Syringe Administered 01/21/22 18:20 Dose 1 mg .ROUTE .STK-MED ONE Sodium Chloride 1,000 mls @ 999 mls/hr 01/21/22 16:59 01/21/22 18:23 Sodium Chloride 0.9% 1000 Ml IV 01/21/22 17:59 Infused .Q1H1M STA Infusion Sodium Chloride Confirm 01/21/22 17:14 Sodium Chloride 0.9% 1000 Ml Administered 01/21/22 17:15 Dose 1,000 mls @ ud .ROUTE .STK-MED ONE Sodium Chloride Confirm 01/21/22 18:35 Sodium Chloride 0.9% 1000 Ml Administered 01/21/22 18:36 Dose 1,000 mls @ ud .ROUTE .STK-MED ONE Potassium Chloride Confirm 01/21/22 18:36 Potassium Chloride 20 Meq In Water 100ml Administered 01/21/22 18:37 Dose 100 mls @ ud IV .STK-MED ONE Ondansetron HCl 4 mg 01/21/22 16:59 01/21/22 17:14 Ondansetron Hcl 4 Mg/2 Ml Vial IV 01/21/22 17:00 4 mg STAT ONE Administration Ondansetron HCl Confirm 01/21/22 17:14 Ondansetron Hcl 4 Mg/2 Ml Vial Administered 01/21/22 17:15 Dose 4 mg .ROUTE .STK-MED ONE Lab/Rad Data: Laboratory Result Diagrams 01/21/22 17:18 01/21/22 17:18 Laboratory Results 01/21/22 01/21/22 01/21/22 Range/Units 17:51 17:41 17:30 WBC (4.0-10.5) x10^3/uL RBC (4.1-5.4) x10^6/uL Hgb (12.0-16.0) g/dL Hct (35-47) % MCV (78-100) fL MCH (26-32) pg MCHC (32-36) g/dL RDW (11.5-14.0) % Plt Count (150-450) x10^3/uL MPV (7.5-11.0) fL Gran % (36.0-66.0) % Immature Gran % (Auto) (0.00-0.4) % Nucleat RBC Rel Count (0.00-0.1) % Eos # (Auto) (0-0.5) x10^3/uL Immature Gran # (Auto) (0.00-0.03) x10^3u/L Absolute Lymphs (auto) (1.0-4.6) x10^3/uL Absolute Monos (auto) (0.0-1.3) x10^3/uL Absolute Nucleated RBC (0.00-0.01) x10^3u/L Lymphocytes % (24.0-44.0) % Monocytes % (0.0-12.0) % Eosinophils % (0.00-5.0) % Basophils % (0.0-0.4) % Absolute Granulocytes (1.4-6.9) x10^3/uL Basophils # (0-0.4) x10^3/uL Sodium (137-145) mmol/L Potassium (3.5-5.1) mmol/L Chloride (98-107) mmol/L Carbon Dioxide (22-30) mmol/L Anion Gap (5-15) MEQ/L BUN (7-17) mg/dL Creatinine (0.52-1.04) mg/dL Estimated GFR ML/MIN Glucose (74-106) mg/dL Lactic Acid 1.9 (0.4-2.0) Calcium (8.4-10.2) mg/dL Magnesium (1.6-2.3) mg/dL Total Bilirubin (0.2-1.3) mg/dL AST (14-36) U/L ALT (0-35) U/L Alkaline Phosphatase (38-126) U/L Serum Total Protein (6.3-8.2) g/dL Albumin (3.5-5.0) g/dL Urinalys Dipstick Clnc MAIN LAB Urine Color YELLOW (YELLOW) Urine Appearance SLIGHTLY CLOUDY (CLEAR) Urine pH 5.5 (5-6) Ur Specific [place] 1.010 (1.005-1.025) POC Urine Protein Conf NEGATIVE (Negative) Urine Ketones NEGATIVE (NEGATIVE) Urine Nitrite NEGATIVE (NEGATIVE) Urine Bilirubin NEGATIVE (NEGATIVE) Urine Urobilinogen 0.2 (0-1) mg/dL Urine Leukocytes SMALL (NEGATIVE) Urine WBC (Auto) 11-15 (0-5) /HPF Urine RBC (Auto) 11-15 (0-2) /HPF U Epithel Cells (Auto) MODERATE (FEW) /HPF Urine Bacteria (Auto) FEW (NEGATIVE) /HPF Urine RBC SMALL (0-5) Flip/ul Unidentified Crystals 25-50 (NEGATIVE) /HPF Other Casts (Auto) 0-2 (NEGATIVE) /LPF Urine Mucus (Auto) SLIGHT (NEGATIVE) /HPF Ur Culture Indicated? YES Urine Glucose >=1000 (NEGATIVE) mg/dL Influenza Type A Ag NEGATIVE (NEGATIVE) Influenza Type B Ag NEGATIVE (NEGATIVE) RSV (PCR) NEGATIVE (Negative) SARS-CoV-2 (PCR) NEGATIVE (NEGATIVE) 01/21/22 01/21/22 Range/Units 17:18 17:18 WBC 11.7 H (4.0-10.5) x10^3/uL RBC 5.37 (4.1-5.4) x10^6/uL Hgb 15.9 (12.0-16.0) g/dL Hct 47.9 H (35-47) % MCV 89.2 (78-100) fL MCH 29.6 (26-32) pg MCHC 33.2 (32-36) g/dL RDW 13.2 (11.5-14.0) % Plt Count 498 H (150-450) x10^3/uL MPV 9.3 (7.5-11.0) fL Gran % 60.2 (36.0-66.0) % Immature Gran % (Auto) 0.4 (0.00-0.4) % Nucleat RBC Rel Count 0.0 (0.00-0.1) % Eos # (Auto) 0.21 (0-0.5) x10^3/uL Immature Gran # (Auto) 0.05 H (0.00-0.03) x10^3u/L Absolute Lymphs (auto) 3.06 (1.0-4.6) x10^3/uL Absolute Monos (auto) 1.29 (0.0-1.3) x10^3/uL Absolute Nucleated RBC 0.00 (0.00-0.01) x10^3u/L Lymphocytes % 26.1 (24.0-44.0) % Monocytes % 11.0 (0.0-12.0) % Eosinophils % 1.8 (0.00-5.0) % Basophils % 0.5 (0.0-0.4) % Absolute Granulocytes 7.06 H (1.4-6.9) x10^3/uL Basophils # 0.06 (0-0.4) x10^3/uL Sodium 136 L (137-145) mmol/L Potassium 3.1 L (3.5-5.1) mmol/L Chloride 94 L (98-107) mmol/L Carbon Dioxide 28 (22-30) mmol/L Anion Gap 17.1 H (5-15) MEQ/L BUN 20 H (7-17) mg/dL Creatinine 0.72 (0.52-1.04) mg/dL Estimated GFR > 60.0 ML/MIN Glucose 153 H (74-106) mg/dL Lactic Acid (0.4-2.0) Calcium 9.4 (8.4-10.2) mg/dL Magnesium 1.9 (1.6-2.3) mg/dL Total Bilirubin 0.60 (0.2-1.3) mg/dL AST 26 (14-36) U/L ALT 21 (0-35) U/L Alkaline Phosphatase 76 (38-126) U/L Serum Total Protein 7.6 (6.3-8.2) g/dL Albumin 4.1 (3.5-5.0) g/dL Urinalys Dipstick Clnc Urine Color (YELLOW) Urine Appearance (CLEAR) Urine pH (5-6) Ur Specific [place] (1.005-1.025) POC Urine Protein Conf (Negative) Urine Ketones (NEGATIVE) Urine Nitrite (NEGATIVE) Urine Bilirubin (NEGATIVE) Urine Urobilinogen (0-1) mg/dL Urine Leukocytes (NEGATIVE) Urine WBC (Auto) (0-5) /HPF Urine RBC (Auto) (0-2) /HPF U Epithel Cells (Auto) (FEW) /HPF Urine Bacteria (Auto) (NEGATIVE) /HPF Urine RBC (0-5) Flip/ul Unidentified Crystals (NEGATIVE) /HPF Other Casts (Auto) (NEGATIVE) /LPF Urine Mucus (Auto) (NEGATIVE) /HPF Ur Culture Indicated? Urine Glucose (NEGATIVE) mg/dL Influenza Type A Ag (NEGATIVE) Influenza Type B Ag (NEGATIVE) RSV (PCR) (Negative) SARS-CoV-2 (PCR) (NEGATIVE) - Progress Progress: improved, pain not gone completely Progress Note: 01/21/22 18:41 Medical decision making: This patient does not appear to have DKA but does have hyperglycemia, intractable vomiting, dehydration and a urinary tract infection. The patients condition can quickly turn into DKA. Her anion gap is elevated. She also has a mild hypokalemia present. Therefore, we will replace her potassium, hydrate her intravenously and repeat labs in the morning. We will do a sliding scale insulin overnight in the morning. She will be reassessed by Dr. Hoang who I spoke with prior to placing this patient in observation. Discussed with : Evans Counseled pt/family regarding: lab results, diagnosis - Departure Departure Disposition: Observation Clinical Impression: Intractable vomiting with nausea, Dehydration, UTI (urinary tract infection), Hypokalemia Condition: Stable Critical Care Time: No Referrals: AMEE LOERA MD [Primary Care Provider] - Follow up/PCP as directed
[2022-01-21] MEDS ORDERED: Sodium Chloride 0.9% 1000 ML 1,000 ML IV STA ×2 (16:59→18:17)
[2022-01-21] MEDS ORDERED: Zofran 4 MG/2 ML VIAL IV ONE (16:59)
[2022-01-21] MEDS ORDERED: Sodium Chloride 0.9% 1000 ML 1,000 ML ONE ×3 (17:14→19:48)
[2022-01-21] MEDS ORDERED: Zofran 4 MG/2 ML VIAL ONE (17:14)
[2022-01-21 17:22] LABS: Absolute Neutrophil Ct (ANC) 7.06 x10^3/uL (1.4-6.9); Basophil (Absolute #) 0.06 x10^3/uL (0-0.4); Eosinophil % 1.8 % (0.00-5.0); Eosinophil (Absolute #) 0.21 x10^3/uL (0-0.5); Hematocrit 47.9 % (35-47); Hemoglobin 15.9 g/dL (12.0-16.0); Lymphocyte (Absolute #) 3.06 x10^3/uL (1.0-4.6); Lymphocytes % 26.1 % (24.0-44.0); Mean Cell Volume 89.2 fL (78-100); Mean Corpuscular Hemoglobin 29.6 pg (26-32); Mean Corpuscular Hgb Concent. 33.2 g/dL (32-36); Mean Platelet Volume 9.3 fL (7.5-11.0); Monocyte (Absolute #) 1.29 x10^3/uL (0.0-1.3); Neutrophil % 60.2 % (36.0-66.0); Platelet Count 498 x10^3/uL (150-450); Red Blood Count 5.37 x10^6/uL (4.1-5.4); Red Cell Distribution Width 13.2 % (11.5-14.0); White Blood Count 11.7 x10^3/uL (4.0-10.5)
[2022-01-21 18:05] LABS: ALBUMIN 4.1 g/dL (3.5-5.0); ALKALINE PHOSPHATASE 76 U/L (38-126); ANION GAP 17.1 MEQ/L (5-15); BLOOD UREA NITROGEN 20 mg/dL (7-17); CHLORIDE 94 mmol/L (98-107); Calcium 9.4 mg/dL (8.4-10.2); Carbon Dioxide 28 mmol/L (22-30); Creatinine 1 0.72 mg/dL (0.52-1.04); EST GLOMERULAR FILTRATION RATE > 60.0 ML/MIN; Glucose 153 mg/dL (74-106); MAGNESIUM 1.9 mg/dL (1.6-2.3); Potassium 3.1 mmol/L (3.5-5.1); SGOT/AST 26 U/L (14-36); SGPT/ALT 21 U/L (0-35); SODIUM 136 mmol/L (137-145); Total Protein 7.6 g/dL (6.3-8.2)
[2022-01-21 18:06] LABS: Appearance SLIGHTLY CLOUDY (CLEAR); Glucose >=1000 mg/dL (NEGATIVE)
[2022-01-21 18:07] LABS: Bilirubin NEGATIVE (NEGATIVE); Dipstick done @ ? MAIN LAB; Ketones NEGATIVE (NEGATIVE); Nitrite NEGATIVE (NEGATIVE); Ph 5.5 (5-6); Protein,Urine Dip NEGATIVE (Negative); RBC SMALL Ery/ul (0-5); Urobilinogen 0.2 mg/dL (0-1)
[2022-01-21 18:09] LABS: Bacteria FEW /HPF (NEGATIVE); Crystals Unidentified 25-50 /HPF (NEGATIVE); Epithelial Cells MODERATE /HPF (FEW); Mucus SLIGHT /HPF (NEGATIVE)
[2022-01-21 18:10] LABS: Urine Cultured Indicated? YES
[2022-01-21] MEDS ORDERED: Hydromorphone 1 mg/ml Injection IV ONE (18:15)
[2022-01-21] MEDS ORDERED: POTASSIUM CHLORIDE 20 mEq IN WATER 100ML 20 MEQ/100 ML BAG IV ONE (18:17)
[2022-01-21] MEDS ORDERED: Hydromorphone 1 mg/ml Injection ONE (18:19)
[2022-01-21 18:31] LABS: INFLUENZA A NEGATIVE (NEGATIVE); INFLUENZA B NEGATIVE (NEGATIVE); RESPIRATORY SYNCTIAL VIRUS NEGATIVE (Negative); SARS-CoV-2 Xpert Express NEGATIVE (NEGATIVE)
[2022-01-21] MEDS ORDERED: POTASSIUM CHLORIDE 20 mEq IN WATER 100ML 100 ML IV ONE (18:36)
[2022-01-21] MEDS ORDERED: ROCEPHIN 1 Gm-D5w 50 ml Bag** 1 G/50 ML IVPB IV STA (18:40)
[2022-01-21] MEDS ORDERED: ROCEPHIN 1 Gm-D5w 50 ml Bag** 1 G/50 ML IVPB IV ONE (19:11)
[2022-01-21] MEDS ORDERED: Sodium Chloride 0.9% 1000 ML 1,000 ML IV SCH (20:00)
[2022-01-21] MEDS ORDERED: HUMULIN R SQ PRN (20:36)
[2022-01-21] MEDS ORDERED: TYLENOL 325 MG PO PRN (20:36)
[2022-01-21] MEDS: Hydromorphone 1 mg/ml Injection IV PRN (22:22)
[2022-01-21] MEDS: Zofran 4 MG/2 ML VIAL IV PRN (22:22)
[2022-01-22] MEDS: Sodium Chloride 0.9% 1000 ML 1,000 ML IV SCH ×2 (04:29)
[2022-01-22] MEDS: Zofran 4 MG/2 ML VIAL IV PRN ×3 (04:29→20:51)
[2022-01-22 05:50] LABS: Basophil (Absolute #) 0.05 x10^3/uL (0-0.4); Eosinophil % 3.3 % (0.00-5.0); Eosinophil (Absolute #) 0.26 x10^3/uL (0-0.5); Hematocrit 38.6 % (35-47); Hemoglobin 12.8 g/dL (12.0-16.0); Lymphocyte (Absolute #) 2.96 x10^3/uL (1.0-4.6); Lymphocytes % 37.9 % (24.0-44.0); Mean Cell Volume 89.6 fL (78-100); Mean Corpuscular Hemoglobin 29.7 pg (26-32); Mean Corpuscular Hgb Concent. 33.2 g/dL (32-36); Mean Platelet Volume 8.6 fL (7.5-11.0); Monocyte (Absolute #) 1.04 x10^3/uL (0.0-1.3); Monocytes % 13.3 % (0.0-12.0); Neutrophil % 44.8 % (36.0-66.0); Platelet Count 374 x10^3/uL (150-450); Red Blood Count 4.31 x10^6/uL (4.1-5.4); Red Cell Distribution Width 13.2 % (11.5-14.0); White Blood Count 7.8 x10^3/uL (4.0-10.5)
[2022-01-22 06:11] LABS: ALBUMIN 2.9 g/dL (3.5-5.0); ALKALINE PHOSPHATASE 52 U/L (38-126); ANION GAP 4.4 MEQ/L (5-15); BLOOD UREA NITROGEN 15 mg/dL (7-17); CHLORIDE 102 mmol/L (98-107); Calcium 7.9 mg/dL (8.4-10.2); Carbon Dioxide 30 mmol/L (22-30); Creatinine 1 0.64 mg/dL (0.52-1.04); EST GLOMERULAR FILTRATION RATE > 60.0 ML/MIN; Glucose 108 mg/dL (74-106); SGOT/AST 19 U/L (14-36); SGPT/ALT 16 U/L (0-35); SODIUM 134 mmol/L (137-145); Total Protein 5.8 g/dL (6.3-8.2)
[2022-01-22] MEDS: Hydromorphone 1 mg/ml Injection IV PRN ×3 (06:35→22:07)
--- NOTE | 2022-01-22 09:35 | PCM.HP ---
History of Present Illness - Chief Complaint Chief Complaint: Intractable vomiting History of Present Illness: is a 36 year old female with recurrent intractable vomiting, states she is a diabetic and continues to have nausea and vomiting bouts since her gallbladder was removed about 6 months ago. - Review of Systems Constitutional: No Fever, No Chills Respiratory: No Cough, No Short Of Breath Cardiac: No Chest Pain, No Edema, No Syncope Abdominal/Gastrointestinal: Nausea, Vomiting Genitourinary Symptoms: No Dysuria Skin: No Rash Medications & Allergies Home Medications: Home Medication List Ondansetron ODT 4 MG [Zofran Odt 4 mg] 4 mg PO Q6H PRN PRN #10 tablet 06/0 08/21 [Rx Confirmed 01/21/22] Insulin Detemir [Levemir] 40 units SQ BID 01/11/22 [History Confirmed 01/21/22] Propranolol HCl [Inderal ] 60 mg PO BID 01/11/22 [History Confirmed 01/21/22] Tirzepatide [Mounjaro] 0.5 ml SQ WEEKLY 01/11/22 [History Confirmed 01/21/22] Hydrocodone/Acetaminophen [Hydrocodone-Acetamin 5-325 mg] 1 tab PO TID PRN PRN MDD 3 01/12/22 [History Confirmed 01/21/22] PANTOPRAZOLE 40 mg Tablet [Protonix 40MG Tablet] 1 tab PO DAILY 01/12/22 [History Confirmed 01/21/22] Cephalexin Mh 500 mg [Keflex 500 mg] 500 mg PO QID 5 Days #20 cap 01/13/22 [Rx Confirmed 01/21/22] Buprenorphine 15 mcg TD WEEKLY 01/21/22 [History Confirmed 01/21/22] Gabapentin 300 mg PO BID 01/21/22 [History Confirmed 01/21/22] Pramipexole Di-HCl [Pramipexole Dihydrochloride] 1 mg PO BID 01/21/22 [History Confirmed 01/21/22] SUMAtriptan succinate [Imitrex 50 mg] 50 mg PO DAILY PRN PRN 01/21/22 [History Confirmed 01/21/22] Allergies/Adverse Reactions: Allergies Allergy/AdvReac Type Severity Reaction Status Date / Time ketorolac [From Toradol] Allergy Verified 01/11/22 16:54 promethazine [From Phenergan] Allergy Verified 01/11/22 16:54 tramadol Allergy Verified 01/11/22 16:54 diphenhydramine AdvReac Verified 01/11/22 16:54 [From Benadryl] - Past Medical History Past Medical History: Yes Neurological History: Migraines, Peripheral Neuropathy ENT History: Other Cardiac History: No Pertinent History Respiratory History: No Pertinent History Endocrine Medical History: Diabetes Type II Musculoskelatal History: No Pertinent History GI Medical History: Gallbladder Disease History: No Pertinent History Pyscho-Social History: Anxiety, Depression Reproductive Disorders: No Pertinent History Comment: carpal tunnel bilaterally - Female History Hx Last Menstrual Period: 01/09/22 Are you now?: No - Past Surgical History Past Surgical History: Yes Neuro Surgical History: No Pertinent History Cardiac History: No Pertinent History Respiratory Surgery: No Pertinent History GI Surgical History: Cholecystectomy Genitourinary Surgical Hx: No Pertinent History Musculskeletal Surgical Hx: No Pertinent History Female Surgical History: Section, Tubal Ligation Other Surgical History: 2 c sections-2nd had tubal as well - Social History Smoking Status: Current every day smoker How long have you smoked: 18 years Exposure to second hand smoke: Yes Alcohol: None Drug Use: none Significant Family History: no pertinent family hx - Physical Exam Vital Signs: Vital Signs - 24 hr Temp Pulse Resp BP Pulse Ox 01/22/22 07:38 97.7 F 87 16 90/49 96 01/22/22 04:00 97.1 F 91 H 16 104/58 95 01/22/22 00:00 12 01/21/22 23:36 97.7 F 86 16 107/62 95 01/21/22 20:51 98.0 F 101 H 16 117/76 98 01/21/22 20:00 91 H 15 128/77 98 01/21/22 19:00 98 H 15 105/78 97 01/21/22 17:55 115 H 20 92/73 97 01/21/22 17:06 98 01/21/22 16:38 97.8 F 124 H 22 106/85 100 General Appearance: no apparent distress, alert Neurologic Exam: alert, oriented x 3, cooperative, normal mood/affect, nml cerebellar function, nml station & gait, sensation nml, No motor deficits Respiratory Exam: normal breath sounds, lungs clear, No respiratory distress Cardiovascular Exam: regular rate/rhythm, normal heart sounds, normal peripheral pulses Gastrointestinal/Abdomen Exam: soft, normal bowel sounds, No tenderness, No mass Skin Exam: normal color, warm, dry, No rash Results - Labs Lab/Micro Results: Lab Results-Last 24 Hours 01/21/22 01/21/22 01/21/22 Range/Units 17:18 17:18 17:30 WBC 11.7 H (4.0-10.5) x10^3/uL RBC 5.37 (4.1-5.4) x10^6/uL Hgb 15.9 (12.0-16.0) g/dL Hct 47.9 H (35-47) % MCV 89.2 (78-100) fL MCH 29.6 (26-32) pg MCHC 33.2 (32-36) g/dL RDW 13.2 (11.5-14.0) % Plt Count 498 H (150-450) x10^3/uL MPV 9.3 (7.5-11.0) fL Gran % 60.2 (36.0-66.0) % Immature Gran % (Auto) 0.4 (0.00-0.4) % Nucleat RBC Rel Count 0.0 (0.00-0.1) % Eos # (Auto) 0.21 (0-0.5) x10^3/uL Immature Gran # (Auto) 0.05 H (0.00-0.03) x10^3u/L Absolute Lymphs (auto) 3.06 (1.0-4.6) x10^3/uL Absolute Monos (auto) 1.29 (0.0-1.3) x10^3/uL Absolute Nucleated RBC 0.00 (0.00-0.01) x10^3u/L Lymphocytes % 26.1 (24.0-44.0) % Monocytes % 11.0 (0.0-12.0) % Eosinophils % 1.8 (0.00-5.0) % Basophils % 0.5 (0.0-0.4) % Absolute Granulocytes 7.06 H (1.4-6.9) x10^3/uL Basophils # 0.06 (0-0.4) x10^3/uL Sodium 136 L (137-145) mmol/L Potassium 3.1 L (3.5-5.1) mmol/L Chloride 94 L (98-107) mmol/L Carbon Dioxide 28 (22-30) mmol/L Anion Gap 17.1 H (5-15) MEQ/L BUN 20 H (7-17) mg/dL Creatinine 0.72 (0.52-1.04) mg/dL Estimated GFR > 60.0 ML/MIN Glucose 153 H (74-106) mg/dL POC Glucometer (74 to 106) mg/dL Lactic Acid 1.9 (0.4-2.0) Calcium 9.4 (8.4-10.2) mg/dL Magnesium 1.9 (1.6-2.3) mg/dL Total Bilirubin 0.60 (0.2-1.3) mg/dL AST 26 (14-36) U/L ALT 21 (0-35) U/L Alkaline Phosphatase 76 (38-126) U/L Serum Total Protein 7.6 (6.3-8.2) g/dL Albumin 4.1 (3.5-5.0) g/dL Urinalys Dipstick Clnc Urine Color (YELLOW) Urine Appearance (CLEAR) Urine pH (5-6) Ur Specific [place] (1.005-1.025) POC Urine Protein Conf (Negative) Urine Ketones (NEGATIVE) Urine Nitrite (NEGATIVE) Urine Bilirubin (NEGATIVE) Urine Urobilinogen (0-1) mg/dL Urine Leukocytes (NEGATIVE) Urine WBC (Auto) (0-5) /HPF Urine RBC (Auto) (0-2) /HPF U Epithel Cells (Auto) (FEW) /HPF Urine Bacteria (Auto) (NEGATIVE) /HPF Urine RBC (0-5) Flip/ul Unidentified Crystals (NEGATIVE) /HPF Other Casts (Auto) (NEGATIVE) /LPF Urine Mucus (Auto) (NEGATIVE) /HPF Ur Culture Indicated? Urine Glucose (NEGATIVE) mg/dL Influenza Type A Ag (NEGATIVE) Influenza Type B Ag (NEGATIVE) RSV (PCR) (Negative) SARS-CoV-2 (PCR) (NEGATIVE) 01/21/22 01/21/22 01/22/22 Range/Units 17:41 17:51 05:37 WBC 7.8 (4.0-10.5) x10^3/uL RBC 4.31 (4.1-5.4) x10^6/uL Hgb 12.8 (12.0-16.0) g/dL Hct 38.6 (35-47) % MCV 89.6 (78-100) fL MCH 29.7 (26-32) pg MCHC 33.2 (32-36) g/dL RDW 13.2 (11.5-14.0) % Plt Count 374 (150-450) x10^3/uL MPV 8.6 (7.5-11.0) fL Gran % 44.8 (36.0-66.0) % Immature Gran % (Auto) 0.1 (0.00-0.4) % Nucleat RBC Rel Count 0.0 (0.00-0.1) % Eos # (Auto) 0.26 (0-0.5) x10^3/uL Immature Gran # (Auto) 0.01 (0.00-0.03) x10^3u/L Absolute Lymphs (auto) 2.96 (1.0-4.6) x10^3/uL Absolute Monos (auto) 1.04 (0.0-1.3) x10^3/uL Absolute Nucleated RBC 0.00 (0.00-0.01) x10^3u/L Lymphocytes % 37.9 (24.0-44.0) % Monocytes % 13.3 H (0.0-12.0) % Eosinophils % 3.3 (0.00-5.0) % Basophils % 0.6 (0.0-0.4) % Absolute Granulocytes 3.50 (1.4-6.9) x10^3/uL Basophils # 0.05 (0-0.4) x10^3/uL Sodium (137-145) mmol/L Potassium (3.5-5.1) mmol/L Chloride (98-107) mmol/L Carbon Dioxide (22-30) mmol/L Anion Gap (5-15) MEQ/L BUN (7-17) mg/dL Creatinine (0.52-1.04) mg/dL Estimated GFR ML/MIN Glucose (74-106) mg/dL POC Glucometer (74 to 106) mg/dL Lactic Acid (0.4-2.0) Calcium (8.4-10.2) mg/dL Magnesium (1.6-2.3) mg/dL Total Bilirubin (0.2-1.3) mg/dL AST (14-36) U/L ALT (0-35) U/L Alkaline Phosphatase (38-126) U/L Serum Total Protein (6.3-8.2) g/dL Albumin (3.5-5.0) g/dL Urinalys Dipstick Clnc MAIN LAB Urine Color YELLOW (YELLOW) Urine Appearance SLIGHTLY CLOUDY (CLEAR) Urine pH 5.5 (5-6) Ur Specific [place] 1.010 (1.005-1.025) POC Urine Protein Conf NEGATIVE (Negative) Urine Ketones NEGATIVE (NEGATIVE) Urine Nitrite NEGATIVE (NEGATIVE) Urine Bilirubin NEGATIVE (NEGATIVE) Urine Urobilinogen 0.2 (0-1) mg/dL Urine Leukocytes SMALL (NEGATIVE) Urine WBC (Auto) 11-15 (0-5) /HPF Urine RBC (Auto) 11-15 (0-2) /HPF U Epithel Cells (Auto) MODERATE (FEW) /HPF Urine Bacteria (Auto) FEW (NEGATIVE) /HPF Urine RBC SMALL (0-5) Flip/ul Unidentified Crystals 25-50 (NEGATIVE) /HPF Other Casts (Auto) 0-2 (NEGATIVE) /LPF Urine Mucus (Auto) SLIGHT (NEGATIVE) /HPF Ur Culture Indicated? YES Urine Glucose >=1000 (NEGATIVE) mg/dL Influenza Type A Ag NEGATIVE (NEGATIVE) Influenza Type B Ag NEGATIVE (NEGATIVE) RSV (PCR) NEGATIVE (Negative) SARS-CoV-2 (PCR) NEGATIVE (NEGATIVE) 01/22/22 01/22/22 Range/Units 05:37 07:19 WBC (4.0-10.5) x10^3/uL RBC (4.1-5.4) x10^6/uL Hgb (12.0-16.0) g/dL Hct (35-47) % MCV (78-100) fL MCH (26-32) pg MCHC (32-36) g/dL RDW (11.5-14.0) % Plt Count (150-450) x10^3/uL MPV (7.5-11.0) fL Gran % (36.0-66.0) % Immature Gran % (Auto) (0.00-0.4) % Nucleat RBC Rel Count (0.00-0.1) % Eos # (Auto) (0-0.5) x10^3/uL Immature Gran # (Auto) (0.00-0.03) x10^3u/L Absolute Lymphs (auto) (1.0-4.6) x10^3/uL Absolute Monos (auto) (0.0-1.3) x10^3/uL Absolute Nucleated RBC (0.00-0.01) x10^3u/L Lymphocytes % (24.0-44.0) % Monocytes % (0.0-12.0) % Eosinophils % (0.00-5.0) % Basophils % (0.0-0.4) % Absolute Granulocytes (1.4-6.9) x10^3/uL Basophils # (0-0.4) x10^3/uL Sodium 134 L (137-145) mmol/L Potassium 3.0 L* (3.5-5.1) mmol/L Chloride 102 (98-107) mmol/L Carbon Dioxide 30 (22-30) mmol/L Anion Gap 4.4 L (5-15) MEQ/L BUN 15 (7-17) mg/dL Creatinine 0.64 (0.52-1.04) mg/dL Estimated GFR > 60.0 ML/MIN Glucose 108 H (74-106) mg/dL POC Glucometer 111 H (74 to 106) mg/dL Lactic Acid (0.4-2.0) Calcium 7.9 L D (8.4-10.2) mg/dL Magnesium (1.6-2.3) mg/dL Total Bilirubin 0.30 (0.2-1.3) mg/dL AST 19 (14-36) U/L ALT 16 (0-35) U/L Alkaline Phosphatase 52 (38-126) U/L Serum Total Protein 5.8 L (6.3-8.2) g/dL Albumin 2.9 L (3.5-5.0) g/dL Urinalys Dipstick Clnc Urine Color (YELLOW) Urine Appearance (CLEAR) Urine pH (5-6) Ur Specific [place] (1.005-1.025) POC Urine Protein Conf (Negative) Urine Ketones (NEGATIVE) Urine Nitrite (NEGATIVE) Urine Bilirubin (NEGATIVE) Urine Urobilinogen (0-1) mg/dL Urine Leukocytes (NEGATIVE) Urine WBC (Auto) (0-5) /HPF Urine RBC (Auto) (0-2) /HPF U Epithel Cells (Auto) (FEW) /HPF Urine Bacteria (Auto) (NEGATIVE) /HPF Urine RBC (0-5) Flip/ul Unidentified Crystals (NEGATIVE) /HPF Other Casts (Auto) (NEGATIVE) /LPF Urine Mucus (Auto) (NEGATIVE) /HPF Ur Culture Indicated? Urine Glucose (NEGATIVE) mg/dL Influenza Type A Ag (NEGATIVE) Influenza Type B Ag (NEGATIVE) RSV (PCR) (Negative) SARS-CoV-2 (PCR) (NEGATIVE) Microbiology 01/21/22 17:41 Urine Culture - Preliminary Urine, Void <10K NORMAL SKIN ART PROBABLE SKIN CONTAMINANT Accuchecks Date 01/22/22 Time 07:38 - Other Procedures and Tests Respiratory Therapy 01/21/22 22:00 Smoking Cessation Education ONCE Assessment/Plan (1) Hypokalemia Current Visit: Yes Status: Acute Assessment & Plan: will replace K deficit Code(s): E87.6 - HYPOKALEMIA (2) Intractable vomiting with nausea Current Visit: Yes Status: Acute Assessment & Plan: suspect an element of gastroparesis, patient is on mounjaro, will hold as this class of GLP-1 agonists delays gastric emptying and might be a factor in her issues. Code(s): R11.2 - NAUSEA WITH VOMITING, UNSPECIFIED (3) Type 2 diabetes mellitus Current Visit: No Status: Chronic Qualifiers:
[2022-01-22] MEDS ORDERED: Sodium Chloride 0.9% W/ 20 mEq KCl/LITER 1,000 ML IV SCH (09:45)
[2022-01-22] MEDS: Klor Con PO SCH ×2 (10:11→22:04)
[2022-01-22] MEDS ORDERED: NORCO 5/325 MG PO PRN (11:02)
[2022-01-22] MEDS: NEURONTIN PO SCH ×2 (12:14→22:04)
[2022-01-22] MEDS: Lantus Insulin SQ SCH (12:15)
[2022-01-23 05:23] LABS: Absolute Neutrophil Ct (ANC) 3.29 x10^3/uL (1.4-6.9); Basophil (Absolute #) 0.04 x10^3/uL (0-0.4); Eosinophil % 3.1 % (0.00-5.0); Eosinophil (Absolute #) 0.21 x10^3/uL (0-0.5); Lymphocyte (Absolute #) 2.43 x10^3/uL (1.0-4.6); Lymphocytes % 36.1 % (24.0-44.0); Mean Cell Volume 92.5 fL (78-100); Mean Corpuscular Hemoglobin 29.2 pg (26-32); Mean Corpuscular Hgb Concent. 31.6 g/dL (32-36); Mean Platelet Volume 9.1 fL (7.5-11.0); Monocyte (Absolute #) 0.74 x10^3/uL (0.0-1.3); Neutrophil % 48.9 % (36.0-66.0); Platelet Count 356 x10^3/uL (150-450); Red Blood Count 4.11 x10^6/uL (4.1-5.4); White Blood Count 6.7 x10^3/uL (4.0-10.5)
[2022-01-23 05:51] LABS: ANION GAP 8.1 MEQ/L (5-15); BLOOD UREA NITROGEN 9 mg/dL (7-17); CHLORIDE 106 mmol/L (98-107); Calcium 8.3 mg/dL (8.4-10.2); Carbon Dioxide 26 mmol/L (22-30); Creatinine 1 0.62 mg/dL (0.52-1.04); EST GLOMERULAR FILTRATION RATE > 60.0 ML/MIN; Glucose 96 mg/dL (74-106); MAGNESIUM 1.8 mg/dL (1.6-2.3); SODIUM 138 mmol/L (137-145)
[2022-01-23 05:54] LABS: Potassium 3.1 mmol/L (3.5-5.1)
[2022-01-23] MEDS: Zofran 4 MG/2 ML VIAL IV PRN (06:09)
[2022-01-23] MEDS: Hydromorphone 1 mg/ml Injection IV PRN (06:09)
[2022-01-23] MEDS ORDERED: K-LYTE PO ONE (09:09)
[2022-01-23] MEDS: Klor Con PO SCH (09:36)
[2022-01-23] MEDS: NEURONTIN PO SCH (09:36)
[2022-01-23] MEDS: Lantus Insulin SQ SCH (09:38)
[2022-01-23 11:38] VITALS: BP 110/67; PULSE 97; O2SAT 98
--- NOTE | 2022-01-23 17:09 | PCM.DS ---
Discharge Summary Date of Admission: 01/21/22 20:33 Admitting Physician: HENRIETTA VELÁSQUEZ Primary Care Provider: KENIA LOERAYESH Allergies Allergies ketorolac [From Toradol] Allergy (Verified 01/11/22 16:54) promethazine [From Phenergan] Allergy (Verified 01/11/22 16:54) tramadol Allergy (Verified 01/11/22 16:54) diphenhydramine [From Benadryl] Adverse Reaction (Verified 01/11/22 16:54) Hospital Summary - Hospital Course Hospital Course: Chief Complaint Diagnosis Intractable vomiting Allergies Allergy/AdvReac Type Severity Reaction Status Date / Time ketorolac [From Toradol] Allergy Verified 01/11/22 16:54 promethazine [From Phenergan] Allergy Verified 01/11/22 16:54 tramadol Allergy Verified 01/11/22 16:54 diphenhydramine AdvReac Verified 01/11/22 16:54 [From Benadryl] Vital Signs (Last 24 hours) Temp Pulse Resp BP Pulse Ox 01/23/22 12:00 20 01/23/22 11:37 98.2 F 97 H 15 110/67 98 01/23/22 08:00 18 01/23/22 07:39 97.3 F 77 15 88/49 94 L 01/23/22 04:00 97.5 F 87 17 94/55 95 01/23/22 00:00 12 01/22/22 23:43 98.2 F 86 12 93/52 93 L 01/22/22 19:46 97.6 F 80 19 104/59 98 Home Medications Medication Instructions Recorded Confirmed Last Taken Type Buprenorphine 15 mcg TD WEEKLY 01/21/22 01/21/22 01/16/22 History Gabapentin 300 mg PO BID 01/21/22 01/21/22 01/17/22 History Pramipexole Di-HCl [Pramipexole 1 mg PO BID 01/21/22 01/21/22 01/17/22 History Dihydrochloride] SUMAtriptan succinate [Imitrex 50 50 mg PO DAILY PRN PRN 01/21/22 01/21/22 Unknown History mg] Potassium Chloride [Klor-Con M10] 2 tab PO BID #60 tablet 01/23/22 Unknown Rx Current Medications Discontinued Medications Generic Name Dose Route Start Last Admin Trade Name Freq PRN Reason Stop Dose Admin Acetaminophen 650 mg 01/21/22 20:36 Acetaminophen 325 Mg Tablet PO 02/20/22 20:35 Q4H PRN PRN PAIN, FEVER, HEADACHE Hydrocodone Bitart/Acetaminophen 1 tab 01/22/22 11:02 Hydrocodone/Apap 5/325 1 Tab Tablet PO 01/27/22 11:01 TID PRN PRN PAIN Gabapentin 300 mg 01/22/22 12:00 01/23/22 09:36 Gabapentin 300 Mg Capsule PO 02/21/22 11:59 300 mg BID HINA Administration Hydromorphone HCl 1 mg 01/21/22 18:15 01/21/22 18:21 Hydromorphone 1 Mg/1ml Inj 1 Mg/Ml Syringe IV 01/21/22 18:16 1 mg STAT ONE Administration Hydromorphone HCl Confirm 01/21/22 18:19 Hydromorphone 1 Mg/1ml Inj 1 Mg/Ml Syringe Administered 01/21/22 18:20 Dose 1 mg .ROUTE .STK-MED ONE Hydromorphone HCl 1 mg 01/21/22 20:36 01/23/22 06:09 Hydromorphone 1 Mg/1ml Inj 1 Mg/Ml Syringe IV 01/26/22 20:35 1 mg Q8H PRN PRN Administration PAIN Sodium Chloride 1,000 mls @ 999 mls/hr 01/21/22 16:59 01/21/22 18:23 Sodium Chloride 0.9% 1000 Ml IV 01/21/22 17:59 Infused .Q1H1M STA Infusion Sodium Chloride Confirm 01/21/22 17:14 Sodium Chloride 0.9% 1000 Ml Administered 01/21/22 17:15 Dose 1,000 mls @ ud .ROUTE .STK-MED ONE Sodium Chloride 1,000 mls @ 999 mls/hr 01/21/22 18:17 01/21/22 19:47 Sodium Chloride 0.9% 1000 Ml IV 01/21/22 19:17 Infused .Q1H1M STA Infusion Potassium Chloride 20 meq in 100 mls @ 50 mls/hr 01/21/22 18:17 01/21/22 18:41 Potassium Chloride 20 Meq In Water 100ml IV 01/21/22 20:16 50 mls/hr STAT ONE Administration Sodium Chloride Confirm 01/21/22 18:35 Sodium Chloride 0.9% 1000 Ml Administered 01/21/22 18:36 Dose 1,000 mls @ ud .ROUTE .STK-MED ONE Potassium Chloride Confirm 01/21/22 18:36 Potassium Chloride 20 Meq In Water 100ml Administered 01/21/22 18:37 Dose 100 mls @ ud IV .STK-MED ONE Ceftriaxone Sodium/Dextrose 1 g in 50 mls @ 100 mls/hr 01/21/22 18:40 01/21/22 19:47 Rocephin 1 Gm-D5w 50 Ml Bag IV 01/21/22 19:09 Infused STAT STA Infusion Ceftriaxone Sodium/Dextrose Confirm 01/21/22 19:11 Rocephin 1 Gm-D5w 50 Ml Bag Administered 01/21/22 19:12 Dose 1 g in 50 mls @ ud IV .STK-MED ONE Sodium Chloride 1,000 mls @ 100 mls/hr 01/21/22 20:00 01/21/22 19:49 Sodium Chloride 0.9% 1000 Ml IV 02/20/22 19:59 100 mls/hr .Q10H HINA Administration Sodium Chloride Confirm 01/21/22 19:48 Sodium Chloride 0.9% 1000 Ml Administered 01/21/22 19:49 Dose 1,000 mls @ ud .ROUTE .STK-MED ONE Sodium Chloride 1,000 mls @ 100 mls/hr 01/21/22 20:36 01/22/22 04:29 Sodium Chloride 0.9% 1000 Ml IV 02/20/22 20:35 100 mls/hr .Q10H HINA Administration Potassium Chloride/Sodium Chloride 1,000 mls @ 100 mls/hr 01/22/22 09:45 01/22/22 10:11 Sodium Chloride 0.9% W/ 20 Meq Kcl/Liter IV 02/21/22 09:44 100 mls/hr .Q10H HINA Administration Insulin Glargine 70 unit 01/22/22 12:00 01/23/22 09:38 Insulin Glargine 1 Unit SQ 02/21/22 11:59 Not Given DAILY HINA Insulin Human Regular 0 unit 01/21/22 20:36 Insulin Regular, Human 1 Unit SQ 02/20/22 20:35 UD PRN HYPERGLYCEMIA Ondansetron HCl 4 mg 01/21/22 16:59 01/21/22 17:14 Ondansetron Hcl 4 Mg/2 Ml Vial IV 01/21/22 17:00 4 mg STAT ONE Administration Ondansetron HCl Confirm 01/21/22 17:14 Ondansetron Hcl 4 Mg/2 Ml Vial Administered 01/21/22 17:15 Dose 4 mg .ROUTE .STK-MED ONE Ondansetron HCl 4 mg 01/21/22 20:36 01/23/22 06:09 Ondansetron Hcl 4 Mg/2 Ml Vial IV 02/20/22 20:35 4 mg Q6H PRN PRN Administration NAUSEA/VOMITING Potassium Bicarbonate 50 meq 01/23/22 09:09 01/23/22 09:36 Potassium Bicarbonate 25 Meq Tab PO 01/23/22 09:10 50 meq STAT ONE Administration Potassium Chloride 10 meq 01/22/22 10:00 01/23/22 09:36 Potassium Chloride Tab 10 Meq Tab PO 02/21/22 09:59 10 meq BID HINA Administration Intake & Output (Last 24 hours) 01/21/22 01/22/22 01/23/22 01/24/22 11:59 11:59 11:59 11:59 Intake Total 1153 3210 Balance 1153 3210 Weight 75.4 kg Microbiology Results (Last 24 hours) 01/21/22 17:41 Urine, Void Urine Culture - Final MIXED ART; 3 OR MORE TYPES. NO PREDOMINANT ORGANISM. NO FURTHER WORKUP. PLEASE RESUBMIT IF CLINICALLY INDICATED. Laboratory Results (Last 24 hours) 01/23/22 01/23/22 01/23/22 07:15 04:30 04:30 WBC 6.7 RBC 4.11 Hgb 12.0 Hct 38.0 MCV 92.5 MCH 29.2 MCHC 31.6 L RDW 13.0 Plt Count 356 MPV 9.1 Gran % 48.9 Immature Gran % (Auto) 0.3 Nucleat RBC Rel Count 0.0 Eos # (Auto) 0.21 Immature Gran # (Auto) 0.02 Absolute Lymphs (auto) 2.43 Absolute Monos (auto) 0.74 Absolute Nucleated RBC 0.00 Lymphocytes % 36.1 Monocytes % 11.0 Eosinophils % 3.1 Basophils % 0.6 Absolute Granulocytes 3.29 Basophils # 0.04 Sodium 138 Potassium 3.1 L Chloride 106 Carbon Dioxide 26 Anion Gap 8.1 BUN 9 Creatinine 0.62 Estimated GFR > 60.0 Glucose 96 POC Glucometer 85 Calcium 8.3 L Magnesium 1.8 01/23/22 01/22/22 04:00 21:13 WBC RBC Hgb Hct MCV MCH MCHC RDW Plt Count MPV Gran % Immature Gran % (Auto) Nucleat RBC Rel Count Eos # (Auto) Immature Gran # (Auto) Absolute Lymphs (auto) Absolute Monos (auto) Absolute Nucleated RBC Lymphocytes % Monocytes % Eosinophils % Basophils % Absolute Granulocytes Basophils # Sodium Potassium 3.1 L Chloride Carbon Dioxide Anion Gap BUN Creatinine Estimated GFR Glucose POC Glucometer 88 Calcium Magnesium Orders (Last 24 hours) Category Date Time Status Infection Control Consult ROUTINE Cons 01/23/22 08:00 Completed Hat And Cap Opener/Discharge Plan ROUTINE Cons 01/23/22 08:00 Completed Discharge Routine Discharge 01/23/22 Ordered BMP AM.LAB Lab 01/23/22 04:30 Completed CBC W DIFF AM.LAB Lab 01/23/22 04:30 Completed MAGNESIUM AM.LAB Lab 01/23/22 04:30 Completed POCT GLUCOSE Stat Lab 01/22/22 21:13 Completed POCT GLUCOSE Stat Lab 01/23/22 07:15 Completed Potassium Routine Lab 01/23/22 04:00 Completed Potassium Bicarbonate [K-Lyte ] Med 01/23/22 09:09 Discontinued 50 meq PO STAT ONE Patient Care Notes (Last 24 hours) 01/23/22 11:33 Nursing Note by Taylor Covarrubias PT REFUSED 1130 POCT ACCU CHECK. AWARE. Initialized on 01/23/22 11:33 - END OF NOTE 01/23/22 09:39 Nursing Note by Taylor Covarrubias ROUNDED ON PT WITH DR. LOERA AT THIS TIME. REC. ORDER THAT AFTER 1130 POTASSIUM DRAW OK TO DISCHARGE PT HOME WITH NEW ORDER FOR POTASSIUM 20MEQ PO BID. Initialized on 01/23/22 09:39 - END OF NOTE 01/23/22 09:03 Nursing Note by Taylor Covarrubias CALLED AND UPDATED DR. LOERA THAT PT IV INFILTRATED AND OF POTASSIUM LEVEL OF 3.1 THIS AM. REC. THE FOLLOWING ORDERS: D/C IV FLUIDS, GIVE 50MEQ POTASSIUM K-LYTE X 1 NOW, RECHECK POTASSIUM LEVEL AT 1130. Initialized on 01/23/22 09:03 - END OF NOTE 01/23/22 08:40 Nursing Note by Taylor Covarrubias IV TO LEFT UPPER ARM INFILTRATED AT THIS TIME. Initialized on 01/23/22 08:40 - END OF NOTE 01/23/22 00:21 Nursing Note by Aleksandra Barakat PATIENT HAD TO BE WOKEN WHEN MIDNIGHT VITALS OBTAINED. NO C/O VOICED OR PROBLEMS NOTED AT THAT TIME. SHORTLY AFTER VITALS OBTAINED FAMILY ARRIVED TO VISIT PATIENT. PATIENT'S SISTER CAME TO THE NURSES STATION AND REPORTED PATIENT WAS CRYING BECAUSE SHE WAS HUNGRY AND STATED STAFF KNEW AND WASN'T GIVING HER FOOD. PATIENT HAD BEEN GIVEN FOOD ITEMS SHE REQUESTED, SHE HAS TROUBLE EATING DUE TO NOT HAVING ANY TEETH. SISTER LEFT TO GO GET PATIENT A CHEESEBURGER. THIS NURSE SPOKE TO PATIENT AND TOLD HER SHE CANNOT BE TELLING FAMILY STAFF IS WITHHOLDING FOOD. PATIENT STATED SHE DID NOT SAY THAT AND SAID HER SISTER MISUNDERSTOOD WHAT SHE MEANT. Initialized on 01/23/22 00:21 - END OF NOTE 01/22/22 21:01 Nursing Note by Aleksandra Barakat JTAC PLACED IV IN LEFT UPPER ARM. 20G. TWO STICKS. PATIENT TOLERATED WELL. Initialized on 01/22/22 21:01 - END OF NOTE 01/22/22 20:30 Nursing Note by Aleksandra Barakat Patient iv went bad just prior to this nurse taking over care from day shift. Cori RN assembly leader attempted and was unsuccessful. Cristine MECHANICAL TECHNICIAN staff placed iv in left ac. When this nurse attempted to give zofran iv was already infiltrated. Will continue to attempt to get iv access. Initialized on 01/22/22 20:30 - END OF NOTE 01/22/22 18:34 Nursing Note by Taylor Covarrubias ATTEMPTED TO RESTART IV X 2 ATTEMPTS WITHOUT SUCCESS. ONCE TO RFA AND ONCE TO LFA. Initialized on 01/22/22 18:34 - END OF NOTE - Vitals & Intake/Output Vital Signs: Vital Signs Temperature 98.2 F 01/23/22 11:37 Pulse Rate 97 H 01/23/22 11:37 Respiratory Rate 20 01/23/22 12:00 Blood Pressure 110/67 01/23/22 11:37 O2 Sat by Pulse Oximetry 98 01/23/22 11:37 Intake & Output: Intake & Output 01/21/22 01/22/22 01/23/22 01/24/22 11:59 11:59 11:59 11:59 Intake Total 1153 3210 Balance 1153 3210 Weight 75.4 kg - Lab Result Diagrams: 01/23/22 04:30 01/23/22 04:30 Lab Results-Last 24 Hrs: Lab Results-Last 24 Hours 01/22/22 01/23/22 01/23/22 Range/Units 21:13 04:00 04:30 WBC 6.7 (4.0-10.5) x10^3/uL RBC 4.11 (4.1-5.4) x10^6/uL Hgb 12.0 (12.0-16.0) g/dL Hct 38.0 (35-47) % MCV 92.5 (78-100) fL MCH 29.2 (26-32) pg MCHC 31.6 L (32-36) g/dL RDW 13.0 (11.5-14.0) % Plt Count 356 (150-450) x10^3/uL MPV 9.1 (7.5-11.0) fL Gran % 48.9 (36.0-66.0) % Immature Gran % (Auto) 0.3 (0.00-0.4) % Nucleat RBC Rel Count 0.0 (0.00-0.1) % Eos # (Auto) 0.21 (0-0.5) x10^3/uL Immature Gran # (Auto) 0.02 (0.00-0.03) x10^3u/L Absolute Lymphs (auto) 2.43 (1.0-4.6) x10^3/uL Absolute Monos (auto) 0.74 (0.0-1.3) x10^3/uL Absolute Nucleated RBC 0.00 (0.00-0.01) x10^3u/L Lymphocytes % 36.1 (24.0-44.0) % Monocytes % 11.0 (0.0-12.0) % Eosinophils % 3.1 (0.00-5.0) % Basophils % 0.6 (0.0-0.4) % Absolute Granulocytes 3.29 (1.4-6.9) x10^3/uL Basophils # 0.04 (0-0.4) x10^3/uL Sodium (137-145) mmol/L Potassium 3.1 L (3.5-5.1) mmol/L Chloride (98-107) mmol/L Carbon Dioxide (22-30) mmol/L Anion Gap (5-15) MEQ/L BUN (7-17) mg/dL Creatinine (0.52-1.04) mg/dL Estimated GFR ML/MIN Glucose (74-106) mg/dL POC Glucometer 88 (74 to 106) mg/dL Calcium (8.4-10.2) mg/dL Magnesium (1.6-2.3) mg/dL 01/23/22 01/23/22 Range/Units 04:30 07:15 WBC (4.0-10.5) x10^3/uL RBC (4.1-5.4) x10^6/uL Hgb (12.0-16.0) g/dL Hct (35-47) % MCV (78-100) fL MCH (26-32) pg MCHC (32-36) g/dL RDW (11.5-14.0) % Plt Count (150-450) x10^3/uL MPV (7.5-11.0) fL Gran % (36.0-66.0) % Immature Gran % (Auto) (0.00-0.4) % Nucleat RBC Rel Count (0.00-0.1) % Eos # (Auto) (0-0.5) x10^3/uL Immature Gran # (Auto) (0.00-0.03) x10^3u/L Absolute Lymphs (auto) (1.0-4.6) x10^3/uL Absolute Monos (auto) (0.0-1.3) x10^3/uL Absolute Nucleated RBC (0.00-0.01) x10^3u/L Lymphocytes % (24.0-44.0) % Monocytes % (0.0-12.0) % Eosinophils % (0.00-5.0) % Basophils % (0.0-0.4) % Absolute Granulocytes (1.4-6.9) x10^3/uL Basophils # (0-0.4) x10^3/uL Sodium 138 (137-145) mmol/L Potassium 3.1 L (3.5-5.1) mmol/L Chloride 106 (98-107) mmol/L Carbon Dioxide 26 (22-30) mmol/L Anion Gap 8.1 (5-15) MEQ/L BUN 9 (7-17) mg/dL Creatinine 0.62 (0.52-1.04) mg/dL Estimated GFR > 60.0 ML/MIN Glucose 96 (74-106) mg/dL POC Glucometer 85 (74 to 106) mg/dL Calcium 8.3 L (8.4-10.2) mg/dL Magnesium 1.8 (1.6-2.3) mg/dL Micro Results-Entire Visit: Microbiology 01/21/22 17:41 Urine Culture - Final Urine, Void MIXED ART; 3 OR MORE TYPES. NO PREDOMINANT ORGANISM. NO FURTHER WORKUP. PLEASE RESUBMIT IF CLINICALLY INDICATED. Accuchecks Date 01/23/22 Time 07:39 - Procedures and Test Procedures and Tests throughout Hospitalization: Therapy Orders & Screens 01/21/22 22:00 Smoking Cessation Education ONCE Comment: Diagnosis: Intractable vomiting Smoking Status: Current every day smoker How long have you smoked: 18 years Have you smoked in the past 12 months: Yes Do you dip or chew tobacco: No Discharge Exam General Appearance: no apparent distress, alert Neurologic Exam: alert, oriented x 3, cooperative, normal mood/affect, nml cerebellar function, sensation nml, No motor deficits Eye Exam: PERRL, EOMI, eyes nml inspection Ears, Nose, Throat Exam: normal ENT inspection, pharynx normal, moist mucous membranes Neck Exam: normal inspection, non-tender, supple, full range of motion Respiratory Exam: normal breath sounds, lungs clear, No respiratory distress Cardiovascular Exam: regular rate/rhythm, normal heart sounds Gastrointestinal/Abdomen Exam: soft, No tenderness, No mass Pelvic Exam: deferred Rectal Exam: deferred Back Exam: normal inspection, normal range of motion, No CVA tenderness, No vertebral tenderness Extremity Exam: normal inspection, normal range of motion Skin Exam: normal color, warm, dry Final Diagnosis/Problem List - Final Discharge Diagnosis/Problem (1) Hypokalemia Status: Acute Assessment & Plan: Chief Complaint Diagnosis Intractable vomiting Allergies Allergy/AdvReac Type Severity Reaction Status Date / Time ketorolac [From Toradol] Allergy Verified 01/11/22 16:54 promethazine [From Phenergan] Allergy Verified 01/11/22 16:54 tramadol Allergy Verified 01/11/22 16:54 diphenhydramine AdvReac Verified 01/11/22 16:54 [From Benadryl] Vital Signs (Last 24 hours) Temp Pulse Resp BP Pulse Ox 01/23/22 12:00 20 01/23/22 11:37 98.2 F 97 H 15 110/67 98 01/23/22 08:00 18 01/23/22 07:39 97.3 F 77 15 88/49 94 L 01/23/22 04:00 97.5 F 87 17 94/55 95 01/23/22 00:00 12 01/22/22 23:43 98.2 F 86 12 93/52 93 L 01/22/22 19:46 97.6 F 80 19 104/59 98 Home Medications Medication Instructions Recorded Confirmed Last Taken Type Buprenorphine 15 mcg TD WEEKLY 01/21/22 01/21/22 01/16/22 History Gabapentin 300 mg PO BID 01/21/22 01/21/22 01/17/22 History Pramipexole Di-HCl [Pramipexole 1 mg PO BID 01/21/22 01/21/22 01/17/22 History Dihydrochloride] SUMAtriptan succinate [Imitrex 50 50 mg PO DAILY PRN PRN 01/21/22 01/21/22 Un known History mg] Potassium Chloride [Klor-Con M10] 2 tab PO BID #60 tablet 01/23/22 Unknown Rx Current Medications Discontinued Medications Generic Name Dose Route Start Last Admin Trade Name Freq PRN Reason Stop Dose Admin Acetaminophen 650 mg 01/21/22 20:36 Acetaminophen 325 Mg Tablet PO 02/20/22 20:35 Q4H PRN PRN PAIN, FEVER, HEADACHE Hydrocodone Bitart/Acetaminophen 1 tab 01/22/22 11:02 Hydrocodone/Apap 5/325 1 Tab Tablet PO 01/27/22 11:01 TID PRN PRN PAIN Gabapentin 300 mg 01/22/22 12:00 01/23/22 09:36 Gabapentin 300 Mg Capsule PO 02/21/22 11:59 300 mg BID HINA Administration Hydromorphone HCl 1 mg 01/21/22 18:15 10/22/22 18:21 Hydromorphone 1 Mg/1ml Inj 1 Mg/Ml Syringe IV 01/21/22 18:16 1 mg STAT ONE Administration Hydromorphone HCl Confirm 01/21/22 18:19 Hydromorphone 1 Mg/1ml Inj 1 Mg/Ml Syringe Administered 01/21/22 18:20 Dose 1 mg .ROUTE .STK-MED ONE Hydromorphone HCl 1 mg 01/21/22 20:36 01/23/22 06:09 Hydromorphone 1 Mg/1ml Inj 1 Mg/Ml Syringe IV 01/26/22 20:35 1 mg Q8H PRN PRN Administration PAIN Sodium Chloride 1,000 mls @ 999 mls/hr 01/21/22 16:59 01/21/22 18:23 Sodium Chloride 0.9% 1000 Ml IV 01/21/22 17:59 Infused .Q1H1M STA Infusion Sodium Chloride Confirm 01/21/22 17:14 Sodium Chloride 0.9% 1000 Ml Administered 01/21/22 17:15 Dose 1,000 mls @ ud .ROUTE .STK-MED ONE Sodium Chloride 1,000 mls @ 999 mls/hr 01/21/22 18:17 01/21/22 19:47 Sodium Chloride 0.9% 1000 Ml IV 01/21/22 19:17 Infused .Q1H1M STA Infusion Potassium Chloride 20 meq in 100 mls @ 50 mls/hr 01/21/22 18:17 01/21/22 18:41 Potassium Chloride 20 Meq In Water 100ml IV 01/21/22 20:16 50 mls/hr STAT ONE Administration Sodium Chloride Confirm 01/21/22 18:35 Sodium Chloride 0.9% 1000 Ml Administered 01/21/22 18:36 Dose 1,000 mls @ ud .ROUTE .STK-MED ONE Potassium Chloride Confirm 01/21/22 18:36 Potassium Chloride 20 Meq In Water 100ml Administered 01/21/22 18:37 Dose 100 mls @ ud IV .STK-MED ONE Ceftriaxone Sodium/Dextrose 1 g in 50 mls @ 100 mls/hr 01/21/22 18:40 01/21/22 19:47 Rocephin 1 Gm-D5w 50 Ml Bag IV 01/21/22 19:09 Infused STAT STA Infusion Ceftriaxone Sodium/Dextrose Confirm 01/21/22 19:11 Rocephin 1 Gm-D5w 50 Ml Bag Administered 01/21/22 19:12 Dose 1 g in 50 mls @ ud IV .STK-MED ONE Sodium Chloride 1,000 mls @ 100 mls/hr 01/21/22 20:00 01/21/22 19:49 Sodium Chloride 0.9% 1000 Ml IV 02/20/22 19:59 100 mls/hr .Q10H HINA Administration Sodium Chloride Confirm 01/21/22 19:48 Sodium Chloride 0.9% 1000 Ml Administered 01/21/22 19:49 Dose 1,000 mls @ ud .ROUTE .STK-MED ONE Sodium Chloride 1,000 mls @ 100 mls/hr 01/21/22 20:36 01/22/22 04:29 Sodium Chloride 0.9% 1000 Ml IV 02/20/22 20:35 100 mls/hr .Q10H HINA Administration Potassium Chloride/Sodium Chloride 1,000 mls @ 100 mls/hr 01/22/22 09:45 01/22/22 10:11 Sodium Chloride 0.9% W/ 20 Meq Kcl/Liter IV 02/21/22 09:44 100 mls/hr .Q10H HINA Administration Insulin Glargine 70 unit 01/22/22 12:00 01/23/22 09:38 Insulin Glargine 1 Unit SQ 02/21/22 11:59 Not Given DAILY [facility] Insulin Human Regular 0 unit 01/21/22 20:36 Insulin Regular, Human 1 Unit SQ 02/20/22 20:35 UD PRN HYPERGLYCEMIA Ondansetron HCl 4 mg 01/21/22 16:59 01/21/22 17:14 Ondansetron Hcl 4 Mg/2 Ml Vial IV 01/21/22 17:00 4 mg STAT ONE Administration Ondansetron HCl Confirm 01/21/22 17:14 Ondansetron Hcl 4 Mg/2 Ml Vial Administered 01/21/22 17:15 Dose 4 mg .ROUTE .STK-MED ONE Ondansetron HCl 4 mg 01/21/22 20:36 01/23/22 06:09 Ondansetron Hcl 4 Mg/2 Ml Vial IV 02/20/22 20:35 4 mg Q6H PRN PRN Administration NAUSEA/VOMITING Potassium Bicarbonate 50 meq 01/23/22 09:09 01/23/22 09:36 Potassium Bicarbonate 25 Meq Tab PO 01/23/22 09:10 50 meq STAT ONE Administration Potassium Chloride 10 meq 01/22/22 10:00 01/23/22 09:36 Potassium Chloride Tab 10 Meq Tab PO 02/21/22 09:59 10 meq BID HINA Administration Intake & Output (Last 24 hours) 01/21/22 01/22/22 01/23/22 01/24/22 11:59 11:59 11:59 11:59 Intake Total 1153 3210 Balance 1153 3210 Weight 75.4 kg Microbiology Results (Last 24 hours) 01/21/22 17:41 Urine, Void Urine Culture - Final MIXED ART; 3 OR MORE TYPES. NO PREDOMINANT ORGANISM. NO FURTHER WORKUP. PLEASE RESUBMIT IF CLINICALLY INDICATED. Laboratory Results (Last 24 hours) 01/23/22 01/23/22 01/23/22 07:15 04:30 04:30 WBC 6.7 RBC 4.11 Hgb 12.0 Hct 38.0 MCV 92.5 MCH 29.2 MCHC 31.6 L RDW 13.0 Plt Count 356 MPV 9.1 Gran % 48.9 Immature Gran % (Auto) 0.3 Nucleat RBC Rel Count 0.0 Eos # (Auto) 0.21 Immature Gran # (Auto) 0.02 Absolute Lymphs (auto) 2.43 Absolute Monos (auto) 0.74 Absolute Nucleated RBC 0.00 Lymphocytes % 36.1 Monocytes % 11.0 Eosinophils % 3.1 Basophils % 0.6 Absolute Granulocytes 3.29 Basophils # 0.04 Sodium 138 Potassium 3.1 L Chloride 106 Carbon Dioxide 26 Anion Gap 8.1 BUN 9 Creatinine 0.62 Estimated GFR > 60.0 Glucose 96 POC Glucometer 85 Calcium 8.3 L Magnesium 1.8 01/23/22 01/22/22 04:00 21:13 WBC RBC Hgb Hct MCV MCH MCHC RDW Plt Count MPV Gran % Immature Gran % (Auto) Nucleat RBC Rel Count Eos # (Auto) Immature Gran # (Auto) Absolute Lymphs (auto) Absolute Monos (auto) Absolute Nucleated RBC Lymphocytes % Monocytes % Eosinophils % Basophils % Absolute Granulocytes Basophils # Sodium Potassium 3.1 L Chloride Carbon Dioxide Anion Gap BUN Creatinine Estimated GFR Glucose POC Glucometer 88 Calcium Magnesium Orders (Last 24 hours) Category Date Time Status Infection Control Consult ROUTINE Cons 01/23/22 08:00 Completed Hat And Cap Opener/Discharge Plan ROUTINE Cons 01/23/22 08:00 Completed Discharge Routine Discharge 01/23/22 Ordered BMP AM.LAB Lab 01/23/22 04:30 Completed CBC W DIFF AM.LAB Lab 01/23/22 04:30 Completed MAGNESIUM AM.LAB Lab 01/23/22 04:30 Completed POCT GLUCOSE Stat Lab 01/22/22 21:13 Completed POCT GLUCOSE Stat Lab 01/23/22 07:15 Completed Potassium Routine Lab 01/23/22 04:00 Completed Potassium Bicarbonate [K-Lyte ] Med 01/23/22 09:09 Discontinued 50 meq PO STAT ONE Patient Care Notes (Last 24 hours) 01/23/22 11:33 Nursing Note by Taylor Covarrubias PT REFUSED 1130 POCT ACCU CHECK. AWARE. Initialized on 01/23/22 11:33 - END OF NOTE 01/23/22 09:39 Nursing Note by Taylor Covarrubias ROUNDED ON PT WITH DR. LOERA AT THIS TIME. REC. ORDER THAT AFTER 1130 POTASSIUM DRAW OK TO DISCHARGE PT HOME WITH NEW ORDER FOR POTASSIUM 20MEQ PO BID. Initialized on 01/23/22 09:39 - END OF NOTE 01/23/22 09:03 Nursing Note by Taylor Covarrubias CALLED AND UPDATED DR. LOERA THAT PT IV INFILTRATED AND OF POTASSIUM LEVEL OF 3.1 THIS AM. REC. THE FOLLOWING ORDERS: D/C IV FLUIDS, GIVE 50MEQ POTASSIUM K- LYTE X 1 NOW, RECHECK POTASSIUM LEVEL AT 1130. Initialized on 01/23/22 09:03 - END OF NOTE 01/23/22 08:40 Nursing Note by Taylor Covarrubias IV TO LEFT UPPER ARM INFILTRATED AT THIS TIME. Initialized on 01/23/22 08:40 - END OF NOTE 01/23/22 00:21 Nursing Note by Aleksandra Barakat PATIENT HAD TO BE WOKEN WHEN MIDNIGHT VITALS OBTAINED. NO C/O VOICED OR PROBLEMS NOTED AT THAT TIME. SHORTLY AFTER VITALS OBTAINED FAMILY ARRIVED TO VISIT PATIENT. PATIENT'S SISTER CAME TO THE NURSES STATION AND REPORTED PATIENT WAS CRYING BECAUSE SHE WAS HUNGRY AND STATED STAFF KNEW AND WASN'T GIVING HER FOOD. PATIENT HAD BEEN GIVEN FOOD ITEMS SHE REQUESTED, SHE HAS TROUBLE EATING DUE TO NOT HAVING ANY TEETH. SISTER LEFT TO GO GET PATIENT A CHEESEBURGER. THIS NURSE SPOKE TO PATIENT AND TOLD HER SHE CANNOT BE TELLING FAMILY STAFF IS WITHHOLDING FOOD. PATIENT STATED SHE DID NOT SAY THAT AND SAID HER SISTER MISUNDERSTOOD WHAT SHE MEANT. Initialized on 01/23/22 00:21 - END OF NOTE 01/22/22 21:01 Nursing Note by Aleksandra Barakat JTAC PLACED IV IN LEFT UPPER ARM. 20G. TWO STICKS. PATIENT TOLERATED WELL. Initialized on 01/22/22 21:01 - END OF NOTE 01/22/22 20:30 Nursing Note by Aleksandra Barakat Patient iv went bad just prior to this nurse taking over care from day shift. Cori RN assembly leader attempted and was unsuccessful. Cristine MECHANICAL TECHNICIAN staff placed iv in left ac. When this nurse attempted to give zofran iv was already infiltrated. Will continue to attempt to get iv access. Initialized on 01/22/22 20:30 - END OF NOTE 01/22/22 18:34 Nursing Note by Taylor Covarrubias ATTEMPTED TO RESTART IV X 2 ATTEMPTS WITHOUT SUCCESS. ONCE TO RFA AND ONCE TO LFA. Initialized on 01/22/22 18:34 - END OF NOTE Code(s): E87.6 - HYPOKALEMIA (2) Abdominal pain Status: Acute Code(s): R10.9 - UNSPECIFIED ABDOMINAL PAIN - Discharge Disposition: Home, Self-Care Condition: Stable Prescriptions: New Potassium Chloride [Klor-Con M10] 2 tab PO BID #60 tablet Continue Ondansetron ODT 4 MG [Zofran Odt 4 mg] 4 mg PO Q6H PRN PRN #10 tablet PRN Reason: Nausea Insulin Detemir [Levemir] 40 units SQ BID Propranolol HCl [Inderal ] 60 mg PO BID Tirzepatide [Mounjaro] 0.5 ml SQ WEEKLY Hydrocodone/Acetaminophen [Hydrocodone-Acetamin 5-325 mg] 1 tab PO TID PRN PRN MDD 3 PRN Reason: Pain PANTOPRAZOLE 40 mg Tablet [Protonix 40MG Tablet] 1 tab PO DAILY SUMAtriptan succinate [Imitrex 50 mg] 50 mg PO DAILY PRN PRN PRN Reason: migraine Buprenorphine 15 mcg TD WEEKLY Pramipexole Di-HCl [Pramipexole Dihydrochloride] 1 mg PO BID Gabapentin 300 mg PO BID Discontinued Cephalexin Mh 500 mg [Keflex 500 mg] 500 mg PO QID 5 Days #20 cap Instructions: Hypokalemia (DC) Follow up with: AMEE LOERA MD [Primary Care Provider] - 01/30/22 1:30 pm (FOLLOW UP WILL BE AT THE [facility]ICE) Forms: Discharge Instructions
== END 2022-01-23 12:10 | disposition home or self-care (01) ==
LOC: ED 16:24 → MED SURG 20:33
PROVIDERS: ADMIT Family Medicine; ATTEND General Practice
DX: E87.6 Hypokalemia (principal); R10.9 Unspecified abdominal pain; E11.9 Type 2 diabetes mellitus without complications; R11.2 Nausea with vomiting, unspecified; Z79.899 Other long term (current) drug therapy; Z20.828 Contact with and (suspected) exposure to other viral communicable diseases; Z72.0 Tobacco use
CPT/HCPCS: 0241U; 36000; 36415; 80048; 80053; 81015; 82947; 83605; 83735; 84132; 85025; 87086; 93005; 93041; 94760; 96360; 96361; 96365; 96367; 96374; 96375; 99285; G0378; J0696; J1170; J2405; J3480; A9270-GY

== ENCOUNTER 2022-10-27 08:54 | Observation (INO) | payer OTHER ==
[2022-10-27] MEDS ORDERED: Sodium Chloride 0.9% 1000 ML 1,000 ML IV STA ×2 (09:15→11:04)
[2022-10-27] MEDS ORDERED: Hydromorphone 1 mg/ml Injection IV ONE (09:15)
[2022-10-27] MEDS ORDERED: Reglan 10 MG/2 ML IV ONE (09:15)
[2022-10-27] MEDS ORDERED: PROTONIX 40 MG IV IV ONE ×2 (09:15→09:26)
[2022-10-27] MEDS ORDERED: Hydromorphone 1 mg/ml Injection ONE (09:26)
[2022-10-27] MEDS ORDERED: Sodium Chloride 0.9% 1000 ML 1,000 ML ONE ×2 (09:27→11:06)
[2022-10-27] MEDS ORDERED: Reglan 10 MG/2 ML ONE (09:27)
[2022-10-27 09:31] LABS: Absolute Neutrophil Ct (ANC) 8.96 x10^3/uL (1.4-6.9); BASOPHIL % 0.6 % (0.0-0.4); Basophil (Absolute #) 0.08 x10^3/uL (0-0.4); Eosinophil % 3.2 % (0.00-5.0); Eosinophil (Absolute #) 0.41 x10^3/uL (0-0.5); Hematocrit 41.1 % (35-47); Hemoglobin 13.8 g/dL (12.0-16.0); IMMATURE GRAN # 0.05 x10^3u/L (0.00-0.03); IMMATURE GRAN % 0.4 % (0.00-0.4); Lymphocyte (Absolute #) 2.45 x10^3/uL (1.0-4.6); Lymphocytes % 19.1 % (24.0-44.0); Mean Cell Volume 85.1 fL (78-100); Mean Corpuscular Hemoglobin 28.6 pg (26-32); Mean Corpuscular Hgb Concent. 33.6 g/dL (32-36); Mean Platelet Volume 9.1 fL (7.5-11.0); Monocyte (Absolute #) 0.88 x10^3/uL (0.0-1.3); Monocytes % 6.9 % (0.0-12.0); Neutrophil % 69.8 % (36.0-66.0); Platelet Count 332 x10^3/uL (150-450); Red Blood Count 4.83 x10^6/uL (4.1-5.4); Red Cell Distribution Width 13.2 % (11.5-14.0); White Blood Count 12.8 x10^3/uL (4.0-10.5)
--- NOTE | 2022-10-27 09:41 | ERPHSYRPT ---
- History of Present Illness Time Seen by Provider: 10/27/22 09:10 Historian: patient Exam Limitations: no limitations Patient Subjective Stated Complaint: PT states "I have been vomiting for the past few days, I am so weak." Triage Nursing Assessment: Pt presented alert and oriented X 3, skin pwd.Pt ambulates with an upright steady gait, able to speakin clear full sentences pt resting comfortably on the bed. Physician History: Patient is a 37-year-old white female who presents with a complaint of generally feeling very badly for 2 days. She complains of nausea and vomiting and generalized pain including abdominal pain. She says she is tired and weak. She also claims shortness of breath chest pain abdominal pain. She takes Gila chronically for chronic back pain and neuropathy she cannot keep her medicines down and surgeries include a gallbladder which was removed and a x2. Timing/Duration: day(s) (2) Activities at Onset: none Quality: aching Abdominal Pain Onset Location: generalized abdomen Pain Radiation: no radiation Severity of Pain-Max: moderate Severity of Pain-Current: moderate Associated Symptoms: chest pain, nausea, vomiting, weakness Allergies/Adverse Reactions: ketorolac [From Toradol] Allergy (Verified 01/11/22 16:54) promethazine [From Phenergan] Allergy (Verified 01/11/22 16:54) tramadol Allergy (Verified 01/11/22 16:54) diphenhydramine [From Benadryl] Adverse Reaction (Verified 01/11/22 16:54) Home Medications: Insulin Detemir [Levemir] 40 units SQ BID 01/11/22 [History] Propranolol HCl [Inderal ] 60 mg PO BID 01/11/22 [History] Hydrocodone/Acetaminophen [Hydrocodone-Acetamin 5-325 mg] 1 tab PO TID PRN PRN MDD 3 01/12/22 [History] PANTOPRAZOLE 40 mg Tablet [Protonix 40MG Tablet] 1 tab PO DAILY 01/12/22 [History] Buprenorphine 15 mcg TD WEEKLY 01/21/22 [History] Gabapentin 300 mg PO BID 01/21/22 [History] Pramipexole Di-HCl [Pramipexole Dihydrochloride] 1 mg PO BID 01/21/22 [History] SUMAtriptan succinate [Imitrex 50 mg] 50 mg PO DAILY PRN PRN 01/21/22 [History] Hx Tetanus, Diphtheria Vaccination/Date Given: No Hx Influenza Vaccination/Date Given: No Hx Pneumococcal Vaccination/Date Given: No Immunizations Up to Date: Yes Travel Risk - International Travel Have you traveled outside of the country in past 3 weeks: No - Coronavirus Screening Are you exhibiting any of the following symptoms?: Yes Symptoms: Shortness of Breath, Vomiting/Diarrhea Close contact with a COVID-19 positive Pt in past 14-21 Days: No - Vaccine Status Have you recieved a Covid-19 vaccination: No - Review of Systems Constitutional: Malaise, No Fever, No Chills Eyes: No Symptoms Ears, Nose, & Throat: No Symptoms Respiratory: No Cough, No Dyspnea Cardiac: Chest Pain, No Edema, No Syncope Abdominal/Gastrointestinal: Abdominal Pain, Nausea, Vomiting, No Diarrhea Genitourinary Symptoms: No Dysuria Musculoskeletal: Arthralgias, Myalgias, No Back Pain, No Neck Pain Skin: No Rash Neurological: No Dizziness, No Focal Weakness, No Sensory Changes Psychological: No Symptoms Endocrine: No Symptoms All Other Systems: Reviewed and Negative - Past Medical History Pertinent Past Medical History: Yes Neurological History: Migraines, Peripheral Neuropathy ENT History: Other Cardiac History: No Pertinent History Respiratory History: No Pertinent History Endocrine Medical History: Diabetes Type II Musculoskeletal History: No Pertinent History GI Medical History: Gallbladder Disease History: No Pertinent History Psycho-Social History: Anxiety, Depression Female Reproductive Disorders: No Pertinent History Other Medical History: carpal tunnel bilaterally - Past Surgical History Past Surgical History: Yes Neuro Surgical History: No Pertinent History Cardiac: No Pertinent History Respiratory: No Pertinent History Gastrointestinal: Cholecystectomy Genitourinary: No Pertinent History Musculoskeletal: No Pertinent History Female Surgical History: Section, Tubal Ligation Other Surgical History: 2 c sections-2nd had tubal as well - Social History Smoking Status: Current every day smoker How long have you smoked: 18 years Exposure to second hand smoke: Yes Alcohol Use: None Drug Use: none Patient Lives Alone: No Significant Family History: no pertinent family hx - Female History Hx Last Menstrual Period: 10/27/2022 Hx Now: No - Nursing Vital Signs Nursing Vital Signs: Initial Vital Signs Temperature 97.0 F 10/27/22 09:00 Pulse Rate 104 H 10/27/22 09:00 Respiratory Rate 20 10/27/22 09:00 Blood Pressure 155/108 10/27/22 09:00 O2 Sat by Pulse Oximetry 100 10/27/22 09:00 Pain Scale Pain Intensity 8 - Physical Exam General Appearance: mild distress Eye Exam: PERRL/EOMI, eyes nml inspection Ears, Nose, Throat Exam: normal ENT inspection, pharynx normal, moist mucous membranes Neck Exam: normal inspection, non-tender, supple, full range of motion Respiratory Exam: normal breath sounds, lungs clear, No respiratory distress Cardiovascular Exam: regular rate/rhythm, normal heart sounds Gastrointestinal/Abdomen Exam: normal bowel sounds, tenderness Back Exam: normal inspection, normal range of motion, No CVA tenderness, No vertebral tenderness Extremity Exam: normal inspection, normal range of motion, pelvis stable Neurologic Exam: alert, oriented x 3, cooperative, normal mood/affect, nml cerebellar function, sensation nml, No motor deficits Skin Exam: normal color, warm, dry SpO2 Interpretation: normal SpO2: 100 O2 Delivery: Room Air - Course Nursing assessment & vital signs reviewed: Yes EKG Interpreted by Me: Sinus Tach (100), NORMAL AXIS, NORMAL INTERVALS, NORMAL QRS, Non-specific ST Changes, Other (Poor R wave progression) - Radiology Exams Chest X-ray Interpretation: Reviewed by me, Negative - CT Exams Abdomen/Pelvis CT Interpretation: Other (CT scan interpreted by the radiologist as ileus versus enteritis) Ordered Tests: Active Orders 24 hr Category Date Time Status EKG-ER Only STAT Care 10/27/22 09:15 Active IV Insertion STAT Care 10/27/22 09:15 Active POCT Glucose Check STAT Care 10/27/22 09:09 Active ABDOMEN AND PELVIS W CONTRAST [CT] Stat Exams 10/27/22 09:16 Completed CHEST 1 VIEW (PORTABLE) Stat Exams 10/27/22 09:15 Completed AMYLASE Stat Lab 10/27/22 09:28 Completed CBC W DIFF Stat Lab 10/27/22 09:28 Completed CMP Stat Lab 10/27/22 09:28 Completed LIPASE Stat Lab 10/27/22 09:28 Completed Lactic Acid Stat Lab 10/27/22 09:15 Completed POCT GLUCOSE Stat Lab 10/27/22 09:08 Completed PROTIME WITH INR Stat Lab 10/27/22 09:28 Completed TROPONIN Q4H Lab 10/27/22 09:28 Completed TROPONIN Q4H Lab 10/27/22 13:15 Ordered TROPONIN Q4H Lab 10/27/22 17:15 Ordered UA W/RFX UR CULTURE Stat Lab 10/27/22 09:15 Ordered Urine Triage Profile Stat Lab 10/27/22 09:15 Ordered Medication Summary Generic Name Dose Route Start Last Admin Trade Name Frehong PRN Reason Stop Dose Admin Sodium Chloride 1,000 mls @ 999 mls/hr 10/27/22 11:04 10/27/22 11:07 Sodium Chloride 0.9% 1000 Ml IV 10/27/22 12:04 999 mls/hr .Q1H1M STA Administration Discontinued Medications Generic Name Dose Route Start Last Admin Trade Name Freq PRN Reason Stop Dose Admin Hydromorphone HCl 1 mg 10/27/22 09:15 10/27/22 09:27 Hydromorphone 1 Mg/1ml Inj IV 10/27/22 09:16 1 mg STAT ONE Administration Hydromorphone HCl Confirm 10/27/22 09:26 Hydromorphone 1 Mg/1ml Inj Administered 10/27/22 09:27 Dose 1 mg .ROUTE .STK-MED ONE Sodium Chloride 1,000 mls @ 999 mls/hr 10/27/22 09:15 10/27/22 10:46 Sodium Chloride 0.9% 1000 Ml IV 10/27/22 10:15 Infused .Q1H1M STA Infusion Sodium Chloride Confirm 10/27/22 09:27 Sodium Chloride 0.9% 1000 Ml Administered 10/27/22 09:28 Dose 1,000 mls @ ud .ROUTE .STK-MED ONE Sodium Chloride Confirm 10/27/22 11:06 Sodium Chloride 0.9% 1000 Ml Administered 10/27/22 11:07 Dose 1,000 mls @ ud .ROUTE .STK-MED ONE Metoclopramide HCl 10 mg 10/27/22 09:15 10/27/22 09:28 Metoclopramide Hcl 10 Mg/2 Ml Vial IV 10/27/22 09:16 10 mg STAT ONE Administration Metoclopramide HCl Confirm 10/27/22 09:27 Metoclopramide Hcl 10 Mg/2 Ml Vial Administered 10/27/22 09:28 Dose 10 mg .ROUTE .STK-MED ONE Pantoprazole Sodium 40 mg 10/27/22 09:15 10/27/22 09:28 Pantoprazole 40 Mg Vial IV 10/27/22 09:16 40 mg STAT ONE Administration Pantoprazole Sodium Confirm 10/27/22 09:26 Pantoprazole 40 Mg Vial Administered 10/27/22 09:27 Dose 40 mg IV .[facility]-MED ONE Lab/Rad Data: Laboratory Result Diagrams 10/27/22 09:28 10/27/22 09:28 Laboratory Results 10/27/22 10/27/22 10/27/22 Range/Units 09:28 09:28 09:28 WBC 12.8 H (4.0-10.5) x10^3/uL RBC 4.83 (4.1-5.4) x10^6/uL Hgb 13.8 (12.0-16.0) g/dL Hct 41.1 (35-47) % MCV 85.1 (78-100) fL MCH 28.6 (26-32) pg MCHC 33.6 (32-36) g/dL RDW 13.2 (11.5-14.0) % Plt Count 332 (150-450) x10^3/uL MPV 9.1 (7.5-11.0) fL Gran % 69.8 H (36.0-66.0) % Immature Gran % (Auto) 0.4 (0.00-0.4) % Nucleat RBC Rel Count 0.0 (0.00-0.1) % Eos # (Auto) 0.41 (0-0.5) x10^3/uL Immature Gran # (Auto) 0.05 H (0.00-0.03) x10^3u/L Absolute Lymphs (auto) 2.45 (1.0-4.6) x10^3/uL Absolute Monos (auto) 0.88 (0.0-1.3) x10^3/uL Absolute Nucleated RBC 0.00 (0.00-0.01) x10^3u/L Lymphocytes % 19.1 L (24.0-44.0) % Monocytes % 6.9 (0.0-12.0) % Eosinophils % 3.2 (0.00-5.0) % Basophils % 0.6 (0.0-0.4) % Absolute Granulocytes 8.96 H (1.4-6.9) x10^3/uL Basophils # 0.08 (0-0.4) x10^3/uL PT 9.9 (9.4-12.5) SECONDS INR 0.90 (0.8-3.0) Sodium 138 (137-145) mmol/L Potassium 3.4 L (3.5-5.1) mmol/L Chloride 102 (98-107) mmol/L Carbon Dioxide 29 (22-30) mmol/L Anion Gap 10.8 (5-15) MEQ/L BUN 11 (7-17) mg/dL Creatinine 0.65 (0.52-1.04) mg/dL Estimated GFR > 60.0 ML/MIN Glucose 189 H (74-106) mg/dL POC Glucometer (74 to 106) mg/dL Lactic Acid (0.4-2.0) Calcium 9.8 (8.4-10.2) mg/dL Total Bilirubin 0.40 (0.2-1.3) mg/dL AST 23 (14-36) U/L ALT 24 (0-35) U/L Alkaline Phosphatase 72 (38-126) U/L Troponin I < 0.012 (0.000-0.034) ng/mL Serum Total Protein 7.8 (6.3-8.2) g/dL Albumin 4.0 (3.5-5.0) g/dL Amylase 88 (30-110) U/L Lipase 116 (23-300) U/L 10/27/22 10/27/22 Range/Units 09:15 09:08 WBC (4.0-10.5) x10^3/uL RBC (4.1-5.4) x10^6/uL Hgb (12.0-16.0) g/dL Hct (35-47) % MCV (78-100) fL MCH (26-32) pg MCHC (32-36) g/dL RDW (11.5-14.0) % Plt Count (150-450) x10^3/uL MPV (7.5-11.0) fL Gran % (36.0-66.0) % Immature Gran % (Auto) (0.00-0.4) % Nucleat RBC Rel Count (0.00-0.1) % Eos # (Auto) (0-0.5) x10^3/uL Immature Gran # (Auto) (0.00-0.03) x10^3u/L Absolute Lymphs (auto) (1.0-4.6) x10^3/uL Absolute Monos (auto) (0.0-1.3) x10^3/uL Absolute Nucleated RBC (0.00-0.01) x10^3u/L Lymphocytes % (24.0-44.0) % Monocytes % (0.0-12.0) % Eosinophils % (0.00-5.0) % Basophils % (0.0-0.4) % Absolute Granulocytes (1.4-6.9) x10^3/uL Basophils # (0-0.4) x10^3/uL PT (9.4-12.5) SECONDS INR (0.8-3.0) Sodium (137-145) mmol/L Potassium (3.5-5.1) mmol/L Chloride (98-107) mmol/L Carbon Dioxide (22-30) mmol/L Anion Gap (5-15) MEQ/L BUN (7-17) mg/dL Creatinine (0.52-1.04) mg/dL Estimated GFR ML/MIN Glucose (74-106) mg/dL POC Glucometer 178 H (74 to 106) mg/dL Lactic Acid 1.0 (0.4-2.0) Calcium (8.4-10.2) mg/dL Total Bilirubin (0.2-1.3) mg/dL AST (14-36) U/L ALT (0-35) U/L Alkaline Phosphatase (38-126) U/L Troponin I (0.000-0.034) ng/mL Serum Total Protein (6.3-8.2) g/dL Albumin (3.5-5.0) g/dL Amylase (30-110) U/L Lipase (23-300) U/L - Progress Progress: unchanged Progress Note: 10/27/22 11:[address] scanning of the abdomen which showed ileus versus enteritis she has a mild hypokalemia hypokalemia leukocytosis. She will be admitted on an observation basis for IV fluids antiemetics etc. Medical Desision Making - Discussion of managment Care discussed with:: hospitalist (Dr Mary.) Reviewed:: Test results Agreed on:: Treatment plan, decision to admit, place in obs Will see patient: in hospital - Diagnostic Testing Diagnostic test were ordered, analyzed, and reviewed by me: Yes Radiological Interpretation: Reviewed by me - Risk of complications The pt has a mod risk of morbidity or mortality based on: Need for prescription drug management - Departure Departure Disposition: Observation Clinical Impression: Ileus, Abdominal pain, IDDM (insulin dependent diabetes mellitus), Hypokalemia, Nausea & vomiting Condition: Stable Critical Care Time: No Referrals: AMEE LOERA MD [Primary Care Provider] - Follow up/PCP as directed
[2022-10-27 09:50] LABS: INR 0.9 (0.8-3.0); PROTIME 9.9 SECONDS (9.4-12.5)
[2022-10-27 10:02] LABS: ALKALINE PHOSPHATASE 72 U/L (38-126); AMYLASE 88 U/L (30-110); ANION GAP 10.8 MEQ/L (5-15); BLOOD UREA NITROGEN 11 mg/dL (7-17); CHLORIDE 102 mmol/L (98-107); Calcium 9.8 mg/dL (8.4-10.2); Carbon Dioxide 29 mmol/L (22-30); Creatinine 1 0.65 mg/dL (0.52-1.04); EST GLOMERULAR FILTRATION RATE > 60.0 ML/MIN; Glucose 189 mg/dL (74-106); LIPASE 116 U/L (23-300); Potassium 3.4 mmol/L (3.5-5.1); SGOT/AST 23 U/L (14-36); SGPT/ALT 24 U/L (0-35); SODIUM 138 mmol/L (137-145); TROPONIN < 0.012 ng/mL (0.000-0.034); Total Protein 7.8 g/dL (6.3-8.2)
--- NOTE | 2022-10-27 10:12 | XRAY ---
Indication: Short of breath, pain, and vomiting. Comparison: January 11, 2022 Portable chest again demonstrates normal heart, lungs, and bony thorax.
--- NOTE | 2022-10-27 10:52 | XRAY ---
Indication: Abdomen pain. Multiple contiguous axial images obtained through the abdomen and pelvis using 80 cc Isovue 370 contrast. Comparison: September 23, 2020 Lung bases clear. Heart not enlarged. Noncontrasted stomach and bowel loops nonobstructed. Again mild diffuse fluid distended small bowel loops with fluid leveling and bowel wall thickening, ileus versus enteritis. Normal appendix. Interval cholecystectomy. No free fluid/air. Again fatty liver. Remaining liver, pancreas, spleen, adrenal glands, kidneys, ureters, bladder, uterus, and aorta are unremarkable. No pathologic retroperitoneal lymphadenopathy. Osseous structures intact again with minimal L5-S1 degenerative changes and minimal levoscoliosis. Impression: 1. Again mild diffuse fluid distended small bowel loops with fluid leveling and bowel wall thickening, ileus versus enteritis. 2. Again fatty liver and chronic bony findings.
[2022-10-27 11:45] LABS: Appearance Clear (Clear); Bacteria None Seen /HPF (None Seen); Bilirubin Negative (Negative); Blood Large (Negative); Epithelial Cells None Seen /HPF (None Seen); Glucose, Urine Negative (Negative); Hyaline Casts NONE SEEN /LPF (0-2); Ketones Negative (Negative); Leukocyte Esterase Negative (Negative); Nitrite Negative (Negative); Protein,Urine Dip Negative (Negative); RBC 21-50 /HPF (0-5); Specific Gravity >=1.030 (1.005-1.030); Urobilinogen 0.2 mg/dL (0.2); WBC 0-2 /HPF (0-5)
[2022-10-27 11:46] LABS: ADD URINE CULTURE? NO (NO)
[2022-10-27 11:57] LABS: Barbiturate,Urine NEGATIVE (NEGATIVE); Benzodiazepine,Urine NEGATIVE (NEGATIVE); Cocaine,Urine NEGATIVE (NEGATIVE); Methadone,Urine NEGATIVE (NEGATIVE); Opiate,Urine POSITIVE (NEGATIVE); PCP,Urine NEGATIVE (NEGATIVE); THC,Urine NEGATIVE (NEGATIVE)
[2022-10-27 12:25] LABS: Amphetamine,Urine POSITIVE (NEGATIVE)
[2022-10-27] MEDS ORDERED: HUMULIN R SQ PRN (13:12)
[2022-10-27] MEDS ORDERED: PROTONIX 40 MG IV IV SCH (13:15)
[2022-10-27] MEDS: Sodium Chloride 0.9% W/ 20 mEq KCl/LITER 1,000 ML IV SCH ×2 (13:43→20:40)
[2022-10-27] MEDS: Reglan 10 MG/2 ML IV PRN (13:48)
--- NOTE | 2022-10-27 14:54 | PCM.HP ---
History of Present Illness - Chief Complaint Chief Complaint: Ileus Date: 10/27/22 History of Present Illness: is a 37 year old female who presents to the hospital with persistent nonbilious and nonbloody emesis for 2 days, with generalized abdominal pain (most prominent in the epigastric region). The patient had had generalized weakness but denies diarrhea or fever. The patient does have history of cholecystectomy and 2 sections, but she has never had this happen before. Her last bowel movement was on the morning of admission, without any hematochezia reported. She reported shortness of breath and chest pain to the ED but did not endorse this during the assessment on the med surg floor. - Review of Systems Constitutional: Fatigue Eyes: No Symptoms Ears, Nose, & Throat: No Symptoms Respiratory: Short Of Breath Cardiac: Chest Pain Abdominal/Gastrointestinal: Abdominal Pain, Nausea, Vomiting Genitourinary Symptoms: No Symptoms Musculoskeletal: No Symptoms Skin: No Symptoms Neurological: No Symptoms Psychological: No Symptoms Endocrine: No Symptoms Hematologic/Lymphatic: No Symptoms Immunological/Allergic: No Symptoms All Other Systems: Reviewed and Negative Medications & Allergies Home Medications: Home Medication List Ondansetron ODT 4 MG [Zofran Odt 4 mg] 4 mg PO Q6H PRN PRN #10 tablet 09/04/21 [Rx Confirmed 10/27/22] Insulin Detemir [Levemir] 40 units SQ BID 01/11/22 [History Confirmed 10/27/22] Propranolol HCl [Inderal ] 60 mg PO BID 01/11/22 [History Confirmed 10/27/22] Hydrocodone/Acetaminophen [Hydrocodone-Acetamin 5-325 mg] 1 tab PO TID PRN PRN MDD 3 01/12/22 [History Confirmed 10/27/22] PANTOPRAZOLE 40 mg Tablet [Protonix 40MG Tablet] 1 tab PO DAILY 01/12/22 [History Confirmed 10/27/22] Buprenorphine 15 mcg TD WEEKLY 01/21/22 [History Confirmed 10/27/22] Gabapentin 300 mg PO BID 01/21/22 [History Confirmed 10/27/22] Pramipexole Di-HCl [Pramipexole Dihydrochloride] 1 mg PO BID 01/21/22 [History Confirmed 10/27/22] SUMAtriptan succinate [Imitrex 50 mg] 50 mg PO DAILY PRN PRN 01/21/22 [History Confirmed 10/27/22] Potassium Chloride [Klor-Con M10] 2 tab PO BID #60 tablet 01/23/22 [Rx Confirmed 10/27/22] Allergies/Adverse Reactions: Allergies Allergy/AdvReac Type Severity Reaction Status Date / Time ketorolac [From Toradol] Allergy Verified 01/11/22 16:54 promethazine [From Phenergan] Allergy Verified 01/11/22 16:54 tramadol Allergy Verified 01/11/22 16:54 diphenhydramine AdvReac Verified 01/11/22 16:54 [From Benadryl] - Past Medical History Past Medical History: Yes Neurological History: Migraines, Peripheral Neuropathy ENT History: Other Cardiac History: No Pertinent History Respiratory History: No Pertinent History Endocrine Medical History: Diabetes Type II Musculoskelatal History: No Pertinent History GI Medical History: Gallbladder Disease History: No Pertinent History Pyscho-Social History: Anxiety, Depression Reproductive Disorders: No Pertinent History Comment: carpal tunnel bilaterally - Female History Hx Last Menstrual Period: 10/27/2022 Are you now?: No - Past Surgical History Past Surgical History: Yes Neuro Surgical History: No Pertinent History Cardiac History: No Pertinent History Respiratory Surgery: No Pertinent History GI Surgical History: Cholecystectomy Genitourinary Surgical Hx: No Pertinent History Musculskeletal Surgical Hx: No Pertinent History Female Surgical History: Section, Tubal Ligation Other Surgical History: 2 c sections-2nd had tubal as well - Social History Smoking Status: Current every day smoker How long have you smoked: 16 yrs Exposure to second hand smoke: Yes Alcohol: None Drug Use: none Significant Family History: no pertinent family hx - Physical Exam Vital Signs: Vital Signs - 24 hr Temp Pulse Resp BP BP Pulse Ox 10/27/22 12:42 97.3 F 69 15 112/72 94 L 10/27/22 12:00 64 13 110/69 10/27/22 11:30 73 13 113/79 10/27/22 11:17 100 10/27/22 11:17 76 14 131/89 99 10/27/22 11:01 150/89 10/27/22 10:37 77 19 104/67 100 10/27/22 10:00 117/83 10/27/22 09:30 100 H 15 147/100 10/27/22 09:08 92 H 26 H 144/92 10/27/22 09:00 97.0 F 104 H 20 155/108 100 General Appearance: no apparent distress, alert Neurologic Exam: alert, oriented x 3, cooperative, radio recorder II-XII nml as tested, normal mood/affect, nml cerebellar function Eye Exam: PERRL/EOMI, eyes nml inspection Ears, Nose, Throat Exam: normal ENT inspection Neck Exam: normal inspection, non-tender, supple, full range of motion Respiratory Exam: normal breath sounds, lungs clear Cardiovascular Exam: regular rate/rhythm, normal heart sounds Gastrointestinal/Abdomen Exam: soft, tenderness (noted in epigastric region but no peritoneal signs or rigidity. No guarding.), distention, other (Decreased bowel sounds) Back Exam: normal range of motion Extremity Exam: normal inspection, normal range of motion Skin Exam: normal color Results - Labs Lab/Micro Results: Lab Results-Last 24 Hours 10/27/22 10/27/22 10/27/22 Range/Units 09:08 09:15 09:28 WBC 12.8 H (4.0-10.5) x10^3/uL RBC 4.83 (4.1-5.4) x10^6/uL Hgb 13.8 (12.0-16.0) g/dL Hct 41.1 (35-47) % MCV 85.1 (78-100) fL MCH 28.6 (26-32) pg MCHC 33.6 (32-36) g/dL RDW 13.2 (11.5-14.0) % Plt Count 332 (150-450) x10^3/uL MPV 9.1 (7.5-11.0) fL Gran % 69.8 H (36.0-66.0) % Immature Gran % (Auto) 0.4 (0.00-0.4) % Nucleat RBC Rel Count 0.0 (0.00-0.1) % Eos # (Auto) 0.41 (0-0.5) x10^3/uL Immature Gran # (Auto) 0.05 H (0.00-0.03) x10^3u/L Absolute Lymphs (auto) 2.45 (1.0-4.6) x10^3/uL Absolute Monos (auto) 0.88 (0.0-1.3) x10^3/uL Absolute Nucleated RBC 0.00 (0.00-0.01) x10^3u/L Lymphocytes % 19.1 L (24.0-44.0) % Monocytes % 6.9 (0.0-12.0) % Eosinophils % 3.2 (0.00-5.0) % Basophils % 0.6 (0.0-0.4) % Absolute Granulocytes 8.96 H (1.4-6.9) x10^3/uL Basophils # 0.08 (0-0.4) x10^3/uL PT (9.4-12.5) SECONDS INR (0.8-3.0) Sodium (137-145) mmol/L Potassium (3.5-5.1) mmol/L Chloride (98-107) mmol/L Carbon Dioxide (22-30) mmol/L Anion Gap (5-15) MEQ/L BUN (7-17) mg/dL Creatinine (0.52-1.04) mg/dL Estimated GFR ML/MIN Glucose (74-106) mg/dL POC Glucometer 178 H (74 to 106) mg/dL Hemoglobin A1c (4.5-6.0) % Lactic Acid 1.0 (0.4-2.0) Calcium (8.4-10.2) mg/dL Total Bilirubin (0.2-1.3) mg/dL AST (14-36) U/L ALT (0-35) U/L Alkaline Phosphatase (38-126) U/L Troponin I (0.000-0.034) ng/mL Serum Total Protein (6.3-8.2) g/dL Albumin (3.5-5.0) g/dL Amylase (30-110) U/L Lipase (23-300) U/L Urine Color (Yellow) Urine Appearance (Clear) Urine pH (4.6-8.0) Ur Specific [place] (1.005-1.030) Urine Protein (Negative) Urine Glucose (UA) (Negative) mg/dL Urine Ketones (Negative) Urine Blood (Negative) Urine Nitrite (Negative) Urine Bilirubin (Negative) Urine Urobilinogen (0.2) mg/dL Ur Leukocyte Esterase (Negative) U Hyaline Cast (Auto) (0-2) /LPF Urine Microscopic RBC (0-5) /HPF Urine Microscopic WBC (0-5) /HPF Ur Epithelial Cells (None Seen) /HPF Urine Bacteria (None Seen) /HPF Urine Culture Reflexed (NO) Urine Opiates Level (NEGATIVE) Ur Methadone (NEGATIVE) Urine Barbiturates (NEGATIVE) Ur Phencyclidine (PCP) (NEGATIVE) Urine Amphetamine (NEGATIVE) U Benzodiazepine Level (NEGATIVE) Urine Cocaine (NEGATIVE) Urine Marijuana (THC) (NEGATIVE) 10/27/22 10/27/22 10/27/22 Range/Units 09:28 09:28 11:24 WBC (4.0-10.5) x10^3/uL RBC (4.1-5.4) x10^6/uL Hgb (12.0-16.0) g/dL Hct (35-47) % MCV (78-100) fL MCH (26-32) pg MCHC (32-36) g/dL RDW (11.5-14.0) % Plt Count (150-450) x10^3/uL MPV (7.5-11.0) fL Gran % (36.0-66.0) % Immature Gran % (Auto) (0.00-0.4) % Nucleat RBC Rel Count (0.00-0.1) % Eos # (Auto) (0-0.5) x10^3/uL Immature Gran # (Auto) (0.00-0.03) x10^3u/L Absolute Lymphs (auto) (1.0-4.6) x10^3/uL Absolute Monos (auto) (0.0-1.3) x10^3/uL Absolute Nucleated RBC (0.00-0.01) x10^3u/L Lymphocytes % (24.0-44.0) % Monocytes % (0.0-12.0) % Eosinophils % (0.00-5.0) % Basophils % (0.0-0.4) % Absolute Granulocytes (1.4-6.9) x10^3/uL Basophils # (0-0.4) x10^3/uL PT 9.9 (9.4-12.5) SECONDS INR 0.90 (0.8-3.0) Sodium 138 (137-145) mmol/L Potassium 3.4 L (3.5-5.1) mmol/L Chloride 102 (98-107) mmol/L Carbon Dioxide 29 (22-30) mmol/L Anion Gap 10.8 (5-15) MEQ/L BUN 11 (7-17) mg/dL Creatinine 0.65 (0.52-1.04) mg/dL Estimated GFR > 60.0 ML/MIN Glucose 189 H (74-106) mg/dL POC Glucometer (74 to 106) mg/dL Hemoglobin A1c (4.5-6.0) % Lactic Acid (0.4-2.0) Calcium 9.8 (8.4-10.2) mg/dL Total Bilirubin 0.40 (0.2-1.3) mg/dL AST 23 (14-36) U/L ALT 24 (0-35) U/L Alkaline Phosphatase 72 (38-126) U/L Troponin I < 0.012 (0.000-0.034) ng/mL Serum Total Protein 7.8 (6.3-8.2) g/dL Albumin 4.0 (3.5-5.0) g/dL Amylase 88 (30-110) U/L Lipase 116 (23-300) U/L Urine Color Yellow (Yellow) Urine Appearance Clear (Clear) Urine pH 8.0 (4.6-8.0) Ur Specific [place] >=1.030 A (1.005-1.030) Urine Protein Negative (Negative) Urine Glucose (UA) Negative (Negative) mg/dL Urine Ketones Negative (Negative) Urine Blood Large A (Negative) Urine Nitrite Negative (Negative) Urine Bilirubin Negative (Negative) Urine Urobilinogen 0.2 (0.2) mg/dL Ur Leukocyte Esterase Negative (Negative) U Hyaline Cast (Auto) NONE SEEN (0-2) /LPF Urine Microscopic RBC 21-50 A (0-5) /HPF Urine Microscopic WBC 0-2 (0-5) /HPF Ur Epithelial Cells None Seen (None Seen) /HPF Urine Bacteria None Seen (None Seen) /HPF Urine Culture Reflexed NO (NO) Urine Opiates Level (NEGATIVE) Ur Methadone (NEGATIVE) Urine Barbiturates (NEGATIVE) Ur Phencyclidine (PCP) (NEGATIVE) Urine Amphetamine (NEGATIVE) U Benzodiazepine Level (NEGATIVE) Urine Cocaine (NEGATIVE) Urine Marijuana (THC) (NEGATIVE) 10/27/22 10/27/22 10/27/22 Range/Units 11:24 13:23 Unknown WBC (4.0-10.5) x10^3/uL RBC (4.1-5.4) x10^6/uL Hgb (12.0-16.0) g/dL Hct (35-47) % MCV (78-100) fL MCH (26-32) pg MCHC (32-36) g/dL RDW (11.5-14.0) % Plt Count (150-450) x10^3/uL MPV (7.5-11.0) fL Gran % (36.0-66.0) % Immature Gran % (Auto) (0.00-0.4) % Nucleat RBC Rel Count (0.00-0.1) % Eos # (Auto) (0-0.5) x10^3/uL Immature Gran # (Auto) (0.00-0.03) x10^3u/L Absolute Lymphs (auto) (1.0-4.6) x10^3/uL Absolute Monos (auto) (0.0-1.3) x10^3/uL Absolute Nucleated RBC (0.00-0.01) x10^3u/L Lymphocytes % (24.0-44.0) % Monocytes % (0.0-12.0) % Eosinophils % (0.00-5.0) % Basophils % (0.0-0.4) % Absolute Granulocytes (1.4-6.9) x10^3/uL Basophils # (0-0.4) x10^3/uL PT (9.4-12.5) SECONDS INR (0.8-3.0) Sodium (137-145) mmol/L Potassium (3.5-5.1) mmol/L Chloride (98-107) mmol/L Carbon Dioxide (22-30) mmol/L Anion Gap (5-15) MEQ/L BUN (7-17) mg/dL Creatinine (0.52-1.04) mg/dL Estimated GFR ML/MIN Glucose (74-106) mg/dL POC Glucometer (74 to 106) mg/dL Hemoglobin A1c 8.40 H (4.5-6.0) % Lactic Acid (0.4-2.0) Calcium (8.4-10.2) mg/dL Total Bilirubin (0.2-1.3) mg/dL AST (14-36) U/L ALT (0-35) U/L Alkaline Phosphatase (38-126) U/L Troponin I < 0.012 (0.000-0.034) ng/mL Serum Total Protein (6.3-8.2) g/dL Albumin (3.5-5.0) g/dL Amylase (30-110) U/L Lipase (23-300) U/L Urine Color (Yellow) Urine Appearance (Clear) Urine pH (4.6-8.0) Ur Specific [place] (1.005-1.030) Urine Protein (Negative) Urine Glucose (UA) (Negative) mg/dL Urine Ketones (Negative) Urine Blood (Negative) Urine Nitrite (Negative) Urine Bilirubin (Negative) Urine Urobilinogen (0.2) mg/dL Ur Leukocyte Esterase (Negative) U Hyaline Cast (Auto) (0-2) /LPF Urine Microscopic RBC (0-5) /HPF Urine Microscopic WBC (0-5) /HPF Ur Epithelial Cells (None Seen) /HPF Urine Bacteria (None Seen) /HPF Urine Culture Reflexed (NO) Urine Opiates Level POSITIVE (NEGATIVE) Ur Methadone NEGATIVE (NEGATIVE) Urine Barbiturates NEGATIVE (NEGATIVE) Ur Phencyclidine (PCP) NEGATIVE (NEGATIVE) Urine Amphetamine POSITIVE (NEGATIVE) U Benzodiazepine Level NEGATIVE (NEGATIVE) Urine Cocaine NEGATIVE (NEGATIVE) Urine Marijuana (THC) NEGATIVE (NEGATIVE) Accuchecks Date 10/27/22 Time 09:10 - Radiology Impressions Radiology Exams & Impressions: Radiology Procedures Category Date Time Status ABDOMEN AND PELVIS W CONTRAST [CT] Stat Exams 10/27/22 09:16 Completed CHEST 1 VIEW (PORTABLE) Stat Exams 10/27/22 09:15 Completed KUB DAILY Exams 10/27/22 14:45 Ordered - Other Procedures and Tests Respiratory Therapy 10/27/22 13:40 Smoking Cessation Education ONCE Assessment/Plan (1) Ileus Current Visit: Yes Status: Acute Assessment & Plan: Bowel rest, IV fluids. AM KUB ordered. Requested evaluation by Dr. Mau Pedro (surgery). Code(s): K56.7 - ILEUS, UNSPECIFIED (2) Nausea & vomiting Current Visit: Yes Status: Acute Assessment & Plan: Antiemetics prn. Code(s): R11.2 - NAUSEA WITH VOMITING, UNSPECIFIED (3) IDDM (insulin dependent diabetes mellitus) Current Visit: Yes Status: Acute Assessment & Plan: Will place on ISS and decrease levemir to half dose Code(s): [id number] - Telemedicine Encounter - Telemedicine Encounter Telemedicine Encounter: The entirety of this encounter was performed via Telemedicine"
--- NOTE | 2022-10-27 15:29 | XRAY ---
Indication: Ileus. Comparison: None KUB demonstrates nonspecific nonobstructed bowel gas pattern. Urinary bladder contrast from same day CT exam. Solid organs and osseous structures unremarkable.
[2022-10-27 16:26] VITALS: RESP 16
[2022-10-27] MEDS: Hydromorphone 1 mg/ml Injection IV PRN ×2 (16:59→21:27)
[2022-10-27] MEDS ORDERED: MEDICATION INTERVENTION MC SCH (17:00)
[2022-10-27] MEDS ORDERED: BUPRENORPHINE TD SCH (17:00)
[2022-10-27] MEDS ORDERED: Lantus Insulin SQ SCH (22:00)
[2022-10-28 00:46] VITALS: O2SAT 98
[2022-10-28] MEDS: Hydromorphone 1 mg/ml Injection IV PRN ×2 (02:37→07:54)
[2022-10-28] MEDS: Sodium Chloride 0.9% W/ 20 mEq KCl/LITER 1,000 ML IV SCH ×2 (02:38→09:13)
[2022-10-28] MEDS: Reglan 10 MG/2 ML IV PRN ×2 (02:48→11:20)
[2022-10-28 05:16] VITALS: PULSE 88
[2022-10-28 05:45] LABS: Absolute Neutrophil Ct (ANC) 6.57 x10^3/uL (1.4-6.9); BASOPHIL % 0.4 % (0.0-0.4); Basophil (Absolute #) 0.04 x10^3/uL (0-0.4); Eosinophil % 3.6 % (0.00-5.0); Eosinophil (Absolute #) 0.35 x10^3/uL (0-0.5); Hematocrit 36.8 % (35-47); Hemoglobin 11.9 g/dL (12.0-16.0); IMMATURE GRAN # 0.02 x10^3u/L (0.00-0.03); IMMATURE GRAN % 0.2 % (0.00-0.4); Lymphocyte (Absolute #) 2.15 x10^3/uL (1.0-4.6); Mean Cell Volume 87.8 fL (78-100); Mean Corpuscular Hemoglobin 28.4 pg (26-32); Mean Corpuscular Hgb Concent. 32.3 g/dL (32-36); Mean Platelet Volume 8.9 fL (7.5-11.0); Monocyte (Absolute #) 0.64 x10^3/uL (0.0-1.3); Monocytes % 6.6 % (0.0-12.0); Neutrophil % 67.2 % (36.0-66.0); Platelet Count 262 x10^3/uL (150-450); Red Blood Count 4.19 x10^6/uL (4.1-5.4); Red Cell Distribution Width 13.2 % (11.5-14.0); White Blood Count 9.8 x10^3/uL (4.0-10.5)
[2022-10-28 06:34] LABS: ALKALINE PHOSPHATASE 62 U/L (38-126); ANION GAP 11.7 MEQ/L (5-15); BLOOD UREA NITROGEN 5 mg/dL (7-17); CHLORIDE 111 mmol/L (98-107); Calcium 7.6 mg/dL (8.4-10.2); Carbon Dioxide 20 mmol/L (22-30); Creatinine 1 0.61 mg/dL (0.52-1.04); EST GLOMERULAR FILTRATION RATE > 60.0 ML/MIN; Glucose 141 mg/dL (74-106); Potassium 3.5 mmol/L (3.5-5.1); SGOT/AST 22 U/L (14-36); SGPT/ALT 21 U/L (0-35); SODIUM 139 mmol/L (137-145); Total Protein 6.1 g/dL (6.3-8.2)
[2022-10-28 08:17] VITALS: BP 139/84; TEMP 97.3
[2022-10-28] MEDS ORDERED: PROTONIX 40 MG IV IV SCH (10:00)
[2022-10-28] MEDS ORDERED: TYLENOL EXTRA STRENGTH 500 MG PO STA (11:14)
[2022-10-28] MEDS ORDERED: TYLENOL EXTRA STRENGTH 500 MG ONE (11:20)
--- NOTE | 2022-10-28 12:07 | XRAY ---
CLINICAL HISTORY:ABD pain COMPARISON:Prior x-ray dated 10/27/2022 TECHNIQUE:X-ray of abdomen, AP view. FINDINGS: The stomach, small bowel, and colon gas patterns are all normal and there is no free air around the falciform ligament. No definite radiopaque shadows could be depicted. Scanned osseous structures are unremarkable. IMPRESSION: 1. Unremarkable x-ray for the abdomen with no definite radio-opaque shadows that could be depicted along the anatomical course of kidneys, ureters and urinary bladder. 2. No gross abnormality. Electronically Signed by: Radha Coppola MD. (10/28/2022 11:07:26 AGING BOX HAND)
--- NOTE | 2022-10-30 12:27 | CONS ---
CONSULT DATE: 10/27/2022 REASON FOR CONSULT: Ileus. HISTORY: A 37-year-old white female this is the first episode like this. She has had a cholecystectomy. She has had a section x2. She had a tubal ligation with her last section. She is having normal menstrual cycles. She is currently basically in the middle of a menstrual cycle. She has no major urinary symptoms. She was hungry all day. She is afraid to eat because she has been queasy. She passed some gas earlier today but she is not sure if she could pass any gas now. She has low abdominal pain which is fairly evenly band-like in the lower abdomen. Her CT scan was read as ileus. She has no peritoneal signs. She does not appear to be toxic. IMPRESSION: I am not sure what is happening here. It is consistent with an ileus or gastroenteritis. She does not have a surgical belly today. We will check on her tomorrow.
== END 2022-10-28 11:59 | disposition left against medical advice (07) ==
LOC: ED 08:54 → MED SURG 12:10
PROVIDERS: ADMIT Internal Medicine; ATTEND Internal Medicine
DX: K56.7 Ileus, unspecified (principal); R11.2 Nausea with vomiting, unspecified; E11.9 Type 2 diabetes mellitus without complications; Z79.899 Other long term (current) drug therapy; Z72.0 Tobacco use; Z20.828 Contact with and (suspected) exposure to other viral communicable diseases
CPT/HCPCS: 36000; 36415; 71045; 74018; 74177; 80053; 80307; 81001; 82150; 82947; 83036; 83605; 83690; 84484; 85025; 85610; 93005; 96360; 96374; 96375; 99285; G0378; J1170; Q3014; A9270-GY

== ENCOUNTER 2023-01-14 13:14 | Observation (INO) | payer OTHER ==
[2023-01-14] MEDS ORDERED: Sodium Chloride 0.9% 1000 ML 1,000 ML IV STA (13:34)
[2023-01-14] MEDS ORDERED: Zofran 4 MG/2 ML VIAL IV ONE (13:34)
[2023-01-14] MEDS ORDERED: ZOFRAN ODT 4 MG ONE (13:37)
[2023-01-14 14:10] LABS: Absolute Neutrophil Ct (ANC) 5.17 x10^3/uL (1.4-6.9); BASOPHIL % 0.5 % (0.0-0.4); Basophil (Absolute #) 0.05 x10^3/uL (0-0.4); Eosinophil % 2.8 % (0.00-5.0); Eosinophil (Absolute #) 0.26 x10^3/uL (0-0.5); Hematocrit 41.2 % (35-47); Hemoglobin 13.6 g/dL (12.0-16.0); IMMATURE GRAN # 0.04 x10^3u/L (0.00-0.03); IMMATURE GRAN % 0.4 % (0.00-0.4); Lymphocyte (Absolute #) 3.07 x10^3/uL (1.0-4.6); Lymphocytes % 32.7 % (24.0-44.0); Mean Cell Volume 89.8 fL (78-100); Mean Corpuscular Hemoglobin 29.6 pg (26-32); Mean Platelet Volume 9.2 fL (7.5-11.0); Monocyte (Absolute #) 0.79 x10^3/uL (0.0-1.3); Monocytes % 8.4 % (0.0-12.0); Neutrophil % 55.2 % (36.0-66.0); Platelet Count 253 x10^3/uL (150-450); Red Blood Count 4.59 x10^6/uL (4.1-5.4); Red Cell Distribution Width 12.7 % (11.5-14.0); White Blood Count 9.4 x10^3/uL (4.0-10.5)
[2023-01-14 14:16] LABS: ADD URINE CULTURE? NO (NO); Appearance Clear (Clear); Bacteria None Seen /HPF (None Seen); Bilirubin Negative (Negative); Blood Negative (Negative); Epithelial Cells Rare /HPF (None Seen); Glucose, Urine 250 mg/dL (Negative); Hyaline Casts NONE SEEN /LPF (0-2); Ketones Negative (Negative); Leukocyte Esterase Negative (Negative); Nitrite Negative (Negative); Ph 6.5 (4.6-8.0); Protein,Urine Dip Negative (Negative); RBC 0-2 /HPF (0-5); Urobilinogen 0.2 mg/dL (0.2); WBC 0-2 /HPF (0-5)
[2023-01-14] MEDS ORDERED: ZOFRAN ODT 4 MG PO ONE (14:17)
[2023-01-14 14:25] LABS: Amphetamine,Urine NEGATIVE (NEGATIVE); Barbiturate,Urine NEGATIVE (NEGATIVE); Benzodiazepine,Urine NEGATIVE (NEGATIVE); Cocaine,Urine NEGATIVE (NEGATIVE); Methadone,Urine NEGATIVE (NEGATIVE); Opiate,Urine NEGATIVE (NEGATIVE); PCP,Urine NEGATIVE (NEGATIVE); THC,Urine NEGATIVE (NEGATIVE)
[2023-01-14 14:26] LABS: ALBUMIN 4.1 g/dL (3.5-5.0); ALKALINE PHOSPHATASE 53 U/L (38-126); AMYLASE 116 U/L (30-110); ANION GAP 11.4 MEQ/L (5-15); BLOOD UREA NITROGEN 9 mg/dL (7-17); CHLORIDE 107 mmol/L (98-107); Calcium 8.8 mg/dL (8.4-10.2); Carbon Dioxide 22 mmol/L (22-30); Creatinine 1 0.58 mg/dL (0.52-1.04); EST GLOMERULAR FILTRATION RATE > 60.0 ML/MIN; Glucose 207 mg/dL (74-106); LIPASE 657 U/L (23-300); SGOT/AST 31 U/L (14-36); SGPT/ALT 25 U/L (0-35); SODIUM 136 mmol/L (137-145); Total Protein 7.4 g/dL (6.3-8.2)
[2023-01-14 14:27] LABS: Potassium 3.9 mmol/L (3.5-5.1)
[2023-01-14] MEDS ORDERED: Sodium Chloride 0.9% 1000 ML 1,000 ML ONE (14:47)
--- NOTE | 2023-01-14 15:18 | XRAY ---
CLINICAL HISTORY:pain COMPARISON:10/27/2022. TECHNIQUE:CT scan of the abdomen and pelvis with the administration of intravenous injection of contrast. FINDINGS: Average-sized liver showing homogeneous attenuation. No focal lesion was seen in the liver. No intrahepatic duct dilatation. Normal-sized portal vein and CBD. Gallbladder is not visualized- surgically removed. The pancreas and spleen appear unremarkable. No adrenal mass. Both kidneys appear normal in size and show normal postcontrast enhancement and excretion. There is nonobstructing 4 mm calculus in the lower pole of the left kidney (stable finding). No ascites. No para-aortic lymphadenopathy. Imaged bowel structures appear unremarkable. No bowel dilatation. Normal appendix. An adequately filled urinary bladder appears free from intraluminal stones, mass, or diverticular outpouching. Normal-sized uterus. No adnexal mass. Small marginally enhancing right ovarian follicle/cyst (likely functional). No acute osseous abnormality or suspicious bony lesions. Lower lumbar spondylotic changes, L5/S1 posterior disc osteophyte complex, and lower lumbar facet arthropathy. Visualized sections of the lower chest show no focal mass or consolidation. IMPRESSION: 1. Stable small non-obstructing left renal stone. 2. No significant acute abdominal or bowel abnormalities. 3. Small marginally enhancing right ovarian follicle/cyst (likely functional). 4. Rest of the findings as detailed above. ' Electronically Signed by: Radha Coppola MD. (01/14/2023 14:16:39 SMT OPERATOR)
--- NOTE | 2023-01-14 15:33 | ERPHSYRPT ---
- History of Present Illness Time Seen by Provider: 01/14/23 13:35 Historian: patient, family Exam Limitations: no limitations Patient Subjective Stated Complaint: vomiting Triage Nursing Assessment: . Physician History: Patient is a 37-year-old white female who presents with a complaint of abdominal pain and vomiting since last evening. She was told at her last visit to this ER back in the summer that she had a "twisted bowel". She was seen in [place] approximately 3 to 4 days ago had [address] scan which showed only a nonobstructive kidney stone 3 mm. Her lipase at that time was normal for their scale. Timing/Duration: hour(s) (36) Activities at Onset: none Quality: cramping, throbbing Abdominal Pain Onset Location: generalized abdomen Severity of Pain-Max: moderate Severity of Pain-Current: moderate Modifying Factors: Improves With: vomiting Associated Symptoms: nausea, vomiting Previous symptoms: same symptoms as today Allergies/Adverse Reactions: ketorolac [From Toradol] Allergy (Verified 01/11/22 16:54) promethazine [From Phenergan] Allergy (Verified 01/11/22 16:54) tramadol Allergy (Verified 01/11/22 16:54) diphenhydramine [From Benadryl] Adverse Reaction (Verified 01/11/22 16:54) Home Medications: Insulin Detemir [Levemir] 80 units SQ HS 01/11/22 [History] Propranolol HCl [Inderal ] 60 mg PO BID 01/11/22 [History] Hydrocodone/Acetaminophen [Hydrocodone-Acetamin 5-325 mg] 1 tab PO TID PRN AR N MDD 3 01/12/22 [History] PANTOPRAZOLE 40 mg Tablet [Protonix 40MG Tablet] 1 tab PO DAILY 01/12/22 [History] Buprenorphine 15 mcg TD WEEKLY 01/21/22 [History] Gabapentin 300 mg PO BID 01/21/22 [History] Pramipexole Di-HCl [Pramipexole Dihydrochloride] 1 mg PO BID 01/21/22 [History] SUMAtriptan succinate [Imitrex 50 mg] 50 mg PO DAILY PRN PRN 01/21/22 [History] Hx Tetanus, Diphtheria Vaccination/Date Given: No Hx Influenza Vaccination/Date Given: No Hx Pneumococcal Vaccination/Date Given: No Travel Risk - International Travel Have you traveled outside of the country in past 3 weeks: No - Coronavirus Screening Are you exhibiting any of the following symptoms?: Yes Symptoms: Vomiting/Diarrhea Close contact with a COVID-19 positive Pt in past 14-21 Days: No - Vaccine Status Have you recieved a Covid-19 vaccination: No - Review of Systems Constitutional: No Fever, No Chills Eyes: No Symptoms Ears, Nose, & Throat: No Symptoms Respiratory: No Cough, No Dyspnea Cardiac: No Chest Pain, No Edema, No Syncope Abdominal/Gastrointestinal: Abdominal Pain, Nausea, Vomiting, No Diarrhea Genitourinary Symptoms: No Dysuria Musculoskeletal: No Back Pain, No Neck Pain Skin: No Rash Neurological: No Dizziness, No Focal Weakness, No Sensory Changes Psychological: No Symptoms Endocrine: No Symptoms All Other Systems: Reviewed and Negative - Past Medical History Pertinent Past Medical History: Yes Neurological History: Migraines, Peripheral Neuropathy ENT History: Other Cardiac History: No Pertinent History Respiratory History: No Pertinent History Endocrine Medical History: Diabetes Type II Musculoskeletal History: No Pertinent History GI Medical History: Gallbladder Disease History: No Pertinent History Psycho-Social History: Anxiety, Depression Female Reproductive Disorders: No Pertinent History Other Medical History: carpal tunnel bilaterally - Past Surgical History Past Surgical History: Yes Neuro Surgical History: No Pertinent History Cardiac: No Pertinent History Respiratory: No Pertinent History Gastrointestinal: Cholecystectomy Genitourinary: No Pertinent History Musculoskeletal: No Pertinent History Female Surgical History: Section, Tubal Ligation Other Surgical History: 2 c sections-2nd had tubal as well - Social History Smoking Status: Current every day smoker How long have you smoked: 16 yrs Exposure to second hand smoke: Yes Alcohol Use: None Drug Use: methamphetamines Patient Lives Alone: No Significant Family History: no pertinent family hx - Female History Hx Last Menstrual Period: last month Hx Now: No - Nursing Vital Signs Nursing Vital Signs: Initial Vital Signs Temperature 98.1 F 01/14/23 13:21 Pulse Rate 102 H 01/14/23 13:21 Respiratory Rate 20 01/14/23 13:21 Blood Pressure 139/89 01/14/23 13:21 O2 Sat by Pulse Oximetry 100 01/14/23 13:21 Pain Scale Pain Intensity 7 - Physical Exam General Appearance: no apparent distress, alert Eye Exam: PERRL/EOMI, eyes nml inspection Ears, Nose, Throat Exam: normal ENT inspection, pharynx normal, moist mucous membranes Neck Exam: normal inspection, non-tender, supple, full range of motion Respiratory Exam: normal breath sounds, lungs clear, No respiratory distress Cardiovascular Exam: regular rate/rhythm, normal heart sounds Gastrointestinal/Abdomen Exam: normal bowel sounds, tenderness, No mass Pelvic Exam: deferred Rectal Exam: deferred Back Exam: normal inspection, normal range of motion, No CVA tenderness, No vertebral tenderness Extremity Exam: normal inspection, normal range of motion, pelvis stable Neurologic Exam: alert, oriented x 3, cooperative, normal mood/affect, nml cerebellar function, sensation nml, No motor deficits Skin Exam: normal color, warm, dry SpO2 Interpretation: normal SpO2: 100 O2 Delivery: Room Air - Course Nursing assessment & vital signs reviewed: Yes - CT Exams Abdomen/Pelvis CT Interpretation: Tele-radiologist Report Ordered Tests: Active Orders 24 hr Category Date Time Status ABDOMEN AND PELVIS W CONTRAST [CT] Stat Exams 01/14/23 14:22 Completed AMYLASE Stat Lab 01/14/23 13:34 Completed CBC W DIFF Stat Lab 01/14/23 13:34 Completed CMP Stat Lab 01/14/23 13:34 Completed LIPASE Stat Lab 01/14/23 13:34 Completed Lactic Acid Stat Lab 01/14/23 13:34 Completed UA W/RFX UR CULTURE Stat Lab 01/14/23 14:08 Completed Urine Triage Profile Stat Lab 01/14/23 14:08 Completed Medication Summary Discontinued Medications Generic Name Dose Route Start Last Admin Trade Name Freq PRN Reason Stop Dose Admin Sodium Chloride 1,000 mls @ 999 mls/hr 01/14/23 13:34 01/14/23 14:49 Sodium Chloride 0.9% 1000 Ml IV 01/14/23 14:34 999 mls/hr .Q1H1M STA Administration Sodium Chloride Confirm 01/14/23 14:47 Sodium Chloride 0.9% 1000 Ml Administered 01/14/23 14:48 Dose 1,000 mls @ ud .ROUTE .STK-MED ONE Ondansetron HCl 4 mg 01/14/23 13:34 Ondansetron Hcl 4 Mg/2 Ml Vial IV 01/14/23 13:35 STAT ONE Ondansetron HCl Confirm 01/14/23 13:37 Zofran 4 Mg/Udtablet Orally Disintegrating Administered 01/14/23 13:38 Dose 4 mg .ROUTE .STK-MED ONE Ondansetron HCl 4 mg 01/14/23 14:17 01/14/23 14:19 Zofran 4 Mg/Udtablet Orally Disintegrating PO 01/14/23 14:18 4 mg STAT ONE Administration Lab/Rad Data: Laboratory Result Diagrams 01/14/23 13:34 01/14/23 13:34 Laboratory Results 01/14/23 01/14/23 01/14/23 Range/Units 14:08 14:08 13:34 WBC (4.0-10.5) x10^3/uL RBC (4.1-5.4) x10^6/uL Hgb (12.0-16.0) g/dL Hct (35-47) % MCV (78-100) fL MCH (26-32) pg MCHC (32-36) g/dL RDW (11.5-14.0) % Plt Count (150-450) x10^3/uL MPV (7.5-11.0) fL Gran % (36.0-66.0) % Immature Gran % (Auto) (0.00-0.4) % Nucleat RBC Rel Count (0.00-0.1) % Eos # (Auto) (0-0.5) x10^3/uL Immature Gran # (Auto) (0.00-0.03) x10^3u/L Absolute Lymphs (auto) (1.0-4.6) x10^3/uL Absolute Monos (auto) (0.0-1.3) x10^3/uL Absolute Nucleated RBC (0.00-0.01) x10^3u/L Lymphocytes % (24.0-44.0) % Monocytes % (0.0-12.0) % Eosinophils % (0.00-5.0) % Basophils % (0.0-0.4) % Absolute Granulocytes (1.4-6.9) x10^3/uL Basophils # (0-0.4) x10^3/uL Sodium 136 L (137-145) mmol/L Potassium 3.9 (3.5-5.1) mmol/L Chloride 107 (98-107) mmol/L Carbon Dioxide 22 (22-30) mmol/L Anion Gap 11.4 (5-15) MEQ/L BUN 9 (7-17) mg/dL Creatinine 0.58 (0.52-1.04) mg/dL Estimated GFR > 60.0 ML/MIN Glucose 207 H (74-106) mg/dL Lactic Acid (0.4-2.0) Calcium 8.8 (8.4-10.2) mg/dL Total Bilirubin 0.30 (0.2-1.3) mg/dL AST 31 (14-36) U/L ALT 25 (0-35) U/L Alkaline Phosphatase 53 (38-126) U/L Serum Total Protein 7.4 (6.3-8.2) g/dL Albumin 4.1 (3.5-5.0) g/dL Amylase 116 H (30-110) U/L Lipase 657 H (23-300) U/L Urine Color Yellow (Yellow) Urine Appearance Clear (Clear) Urine pH 6.5 (4.6-8.0) Ur Specific [place] 1.010 (1.005-1.030) Urine Protein Negative (Negative) Urine Glucose (UA) 250 A (Negative) mg/dL Urine Ketones Negative (Negative) Urine Blood Negative (Negative) Urine Nitrite Negative (Negative) Urine Bilirubin Negative (Negative) Urine Urobilinogen 0.2 (0.2) mg/dL Ur Leukocyte Esterase Negative (Negative) U Hyaline Cast (Auto) NONE SEEN (0-2) /LPF Urine Microscopic RBC 0-2 (0-5) /HPF Urine Microscopic WBC 0-2 (0-5) /HPF Ur Epithelial Cells Rare (None Seen) /HPF Urine Bacteria None Seen (None Seen) /HPF Urine Culture Reflexed NO (NO) Urine Opiates Level NEGATIVE (NEGATIVE) Ur Methadone NEGATIVE (NEGATIVE) Urine Barbiturates NEGATIVE (NEGATIVE) Ur Phencyclidine (PCP) NEGATIVE (NEGATIVE) Urine Amphetamine NEGATIVE (NEGATIVE) U Benzodiazepine Level NEGATIVE (NEGATIVE) Urine Cocaine NEGATIVE (NEGATIVE) Urine Marijuana (THC) NEGATIVE (NEGATIVE) 01/14/23 01/14/23 Range/Units 13:34 13:34 WBC 9.4 (4.0-10.5) x10^3/uL RBC 4.59 (4.1-5.4) x10^6/uL Hgb 13.6 (12.0-16.0) g/dL Hct 41.2 (35-47) % MCV 89.8 (78-100) fL MCH 29.6 (26-32) pg MCHC 33.0 (32-36) g/dL RDW 12.7 (11.5-14.0) % Plt Count 253 (150-450) x10^3/uL MPV 9.2 (7.5-11.0) fL Gran % 55.2 (36.0-66.0) % Immature Gran % (Auto) 0.4 (0.00-0.4) % Nucleat RBC Rel Count 0.0 (0.00-0.1) % Eos # (Auto) 0.26 (0-0.5) x10^3/uL Immature Gran # (Auto) 0.04 H (0.00-0.03) x10^3u/L Absolute Lymphs (auto) 3.07 (1.0-4.6) x10^3/uL Absolute Monos (auto) 0.79 (0.0-1.3) x10^3/uL Absolute Nucleated RBC 0.00 (0.00-0.01) x10^3u/L Lymphocytes % 32.7 (24.0-44.0) % Monocytes % 8.4 (0.0-12.0) % Eosinophils % 2.8 (0.00-5.0) % Basophils % 0.5 (0.0-0.4) % Absolute Granulocytes 5.17 (1.4-6.9) x10^3/uL Basophils # 0.05 (0-0.4) x10^3/uL Sodium (137-145) mmol/L Potassium (3.5-5.1) mmol/L Chloride (98-107) mmol/L Carbon Dioxide (22-30) mmol/L Anion Gap (5-15) MEQ/L BUN (7-17) mg/dL Creatinine (0.52-1.04) mg/dL Estimated GFR ML/MIN Glucose (74-106) mg/dL Lactic Acid 1.2 (0.4-2.0) Calcium (8.4-10.2) mg/dL Total Bilirubin (0.2-1.3) mg/dL AST (14-36) U/L ALT (0-35) U/L Alkaline Phosphatase (38-126) U/L Serum Total Protein (6.3-8.2) g/dL Albumin (3.5-5.0) g/dL Amylase (30-110) U/L Lipase (23-300) U/L Urine Color (Yellow) Urine Appearance (Clear) Urine pH (4.6-8.0) Ur Specific [place] (1.005-1.030) Urine Protein (Negative) Urine Glucose (UA) (Negative) mg/dL Urine Ketones (Negative) Urine Blood (Negative) Urine Nitrite (Negative) Urine Bilirubin (Negative) Urine Urobilinogen (0.2) mg/dL Ur Leukocyte Esterase (Negative) U Hyaline Cast (Auto) (0-2) /LPF Urine Microscopic RBC (0-5) /HPF Urine Microscopic WBC (0-5) /HPF Ur Epithelial Cells (None Seen) /HPF Urine Bacteria (None Seen) /HPF Urine Culture Reflexed (NO) Urine Opiates Level (NEGATIVE) Ur Methadone (NEGATIVE) Urine Barbiturates (NEGATIVE) Ur Phencyclidine (PCP) (NEGATIVE) Urine Amphetamine (NEGATIVE) U Benzodiazepine Level (NEGATIVE) Urine Cocaine (NEGATIVE) Urine Marijuana (THC) (NEGATIVE) - Progress Progress: improved Discussed with : Other (Dr Way) Will see patient in: hospital (observation) Medical Desision Making - Discussion of managment Care discussed with:: hospitalist Reviewed:: Test results Agreed on:: Treatment plan, decision to admit - Diagnostic Testing Diagnostic test were ordered, analyzed, and reviewed by me: Yes Radiological Interpretation: Reviewed by me - Risk of complications The pt has a mod risk of morbidity or mortality based on: Need for prescription drug management - Departure Departure Disposition: Observation Clinical Impression: Pancreatitis Condition: Stable Critical Care Time: No Referrals: DOCTOR,NO FAMILY [Primary Care Provider] - Follow up/PCP as directed
--- NOTE | 2023-01-14 15:44 | PCM.HP ---
History of Present Illness - Chief Complaint Chief Complaint: Pancreatitis Date: 01/14/23 History of Present Illness: is a 37 year old female with PMHx of GERD, DM, and neuropathy. Patient is a 37-year-old white female who presents with a complaint of abdominal pain, nausea, and vomiting since last evening. She was seen in [place] approximately 3 to [address] scan which showed only a nonobstructive kidney stone 3 mm. Her lipase at that time was normal for their scale. Her lipase today is 657. She has continued N/V, and overall abd. pain. She received and IV fluid bolus in the ER. Will add compazine for n/v since she continues to have sxs. She has no hx of alcohol use. The last time she used Meth was 2 months ago. She reports anxiety and depression but does not take anything for this. Dr. Morrissey is her bridge painter helper for chronic pain. She reports overall pain and peripheral neuropathy. She stopped taking belbuca because she was sleeping all the time and could not take care of her children. She deneis CP, SOB, Diarrhea. - Review of Systems Constitutional: No Fever, No Chills Eyes: No Symptoms Ears, Nose, & Throat: No Symptoms Respiratory: No Cough, No Short Of Breath Cardiac: No Chest Pain, No Edema, No Syncope Abdominal/Gastrointestinal: Abdominal Pain, Nausea, Vomiting, Constipation, No Diarrhea Genitourinary Symptoms: No Dysuria Musculoskeletal: No Back Pain, No Neck Pain Skin: No Rash Neurological: No Dizziness, No Focal Weakness, No Sensory Changes Psychological: No Symptoms, Anxiety, Depression Endocrine: No Symptoms Hematologic/Lymphatic: No Symptoms Immunological/Allergic: No Symptoms Medications & Allergies Home Medications: Home Medication List Ondansetron ODT 4 MG [Zofran Odt 4 mg] 4 mg PO Q6H PRN PRN #10 tablet 09/04/21 [Rx Confirmed 01/14/23] Insulin Detemir [Levemir] 80 units SQ BID 01/11/22 [History Confirmed 01/14/23] Propranolol HCl [Inderal ] 60 mg PO BID 01/11/22 [History Confirmed 01/14/23] Hydrocodone/Acetaminophen [Hydrocodone-Acetamin 5-325 mg] 1 tab PO TID PRN PRN MDD 3 10/13/22 [History Confirmed 01/14/23] PANTOPRAZOLE 40 mg Tablet [Protonix 40MG Tablet] 1 tab PO DAILY 01/12/22 [History Confirmed 01/14/23] Gabapentin 300 mg PO BID 01/21/22 [History Confirmed 01/14/23] Pramipexole Di-HCl [Pramipexole Dihydrochloride] 1 mg PO BID 01/21/22 [History Confirmed 01/14/23] SUMAtriptan succinate [Imitrex 50 mg] 50 mg PO DAILY PRN PRN 01/21/22 [History Confirmed 01/14/23] Buprenorphine HCl [Belbuca] 600 mcg BC BID 01/14/23 [History Confirmed 01/14/23] Allergies/Adverse Reactions: Allergies Allergy/AdvReac Type Severity Reaction Status Date / Time ketorolac [From Toradol] Allergy Verified 01/11/22 16:54 promethazine [From Phenergan] Allergy Verified 01/11/22 16:54 tramadol Allergy Verified 01/11/22 16:54 diphenhydramine AdvReac Verified 01/11/22 16:54 [From Benadryl] - Past Medical History Past Medical History: Yes Neurological History: Migraines, Peripheral Neuropathy ENT History: Other Cardiac History: No Pertinent History Respiratory History: No Pertinent History Endocrine Medical History: Diabetes Type II Musculoskelatal History: No Pertinent History GI Medical History: Gallbladder Disease History: No Pertinent History Pyscho-Social History: Anxiety, Depression Reproductive Disorders: No Pertinent History Comment: carpal tunnel bilaterally - Female History Hx Last Menstrual Period: last month Are you now?: No - Past Surgical History Past Surgical History: Yes Neuro Surgical History: No Pertinent History Cardiac History: No Pertinent History Respiratory Surgery: No Pertinent History GI Surgical History: Cholecystectomy Genitourinary Surgical Hx: No Pertinent History Musculskeletal Surgical Hx: No Pertinent History Female Surgical History: Section, Tubal Ligation Other Surgical History: 2 c sections-2nd had tubal as well - Social History Smoking Status: Current every day smoker How long have you smoked: 16 yrs Exposure to second hand smoke: Yes Alcohol: None Drug Use: methamphetamines Significant Family History: no pertinent family hx - Physical Exam Vital Signs: Vital Signs - 24 hr Temp Pulse Resp BP BP Pulse Ox 01/14/23 15:33 100 01/14/23 14:40 94 H 16 100 01/14/23 14:33 99 H 22 99 01/14/23 14:09 127/78 01/14/23 13:21 98.1 F 102 H 20 139/89 100 General Appearance: no apparent distress, alert Neurologic Exam: alert, oriented x 3, cooperative, normal mood/affect, nml cerebellar function, nml station & gait, sensation nml, No motor deficits Eye Exam: PERRL/EOMI, eyes nml inspection Ears, Nose, Throat Exam: normal ENT inspection, TMs normal, pharynx normal, moist mucous membranes Neck Exam: normal inspection, non-tender, supple, full range of motion Respiratory Exam: normal breath sounds, lungs clear, No respiratory distress Cardiovascular Exam: regular rate/rhythm, normal heart sounds, normal peripheral pulses Gastrointestinal/Abdomen Exam: soft, normal bowel sounds, tenderness (x4 quad with palpation), No mass Back Exam: normal inspection, normal range of motion, No CVA tenderness, No vertebral tenderness Extremity Exam: normal inspection, normal range of motion, pelvis stable Skin Exam: normal color, warm, dry, No rash Lymphatic Exam: No adenopathy Results - Labs Lab/Micro Results: Lab Results-Last 24 Hours 01/14/23 01/14/23 01/14/23 Range/Units 13:34 13:34 13:34 WBC 9.4 (4.0-10.5) x10^3/uL RBC 4.59 (4.1-5.4) x10^6/uL Hgb 13.6 (12.0-16.0) g/dL Hct 41.2 (35-47) % MCV 89.8 (78-100) fL MCH 29.6 (26-32) pg MCHC 33.0 (32-36) g/dL RDW 12.7 (11.5-14.0) % Plt Count 253 (150-450) x10^3/uL MPV 9.2 (7.5-11.0) fL Gran % 55.2 (36.0-66.0) % Immature Gran % (Auto) 0.4 (0.00-0.4) % Nucleat RBC Rel Count 0.0 (0.00-0.1) % Eos # (Auto) 0.26 (0-0.5) x10^3/uL Immature Gran # (Auto) 0.04 H (0.00-0.03) x10^3u/L Absolute Lymphs (auto) 3.07 (1.0-4.6) x10^3/uL Absolute Monos (auto) 0.79 (0.0-1.3) x10^3/uL Absolute Nucleated RBC 0.00 (0.00-0.01) x10^3u/L Lymphocytes % 32.7 (24.0-44.0) % Monocytes % 8.4 (0.0-12.0) % Eosinophils % 2.8 (0.00-5.0) % Basophils % 0.5 (0.0-0.4) % Absolute Granulocytes 5.17 (1.4-6.9) x10^3/uL Basophils # 0.05 (0-0.4) x10^3/uL Sodium 136 L (137-145) mmol/L Potassium 3.9 (3.5-5.1) mmol/L Chloride 107 (98-107) mmol/L Carbon Dioxide 22 (22-30) mmol/L Anion Gap 11.4 (5-15) MEQ/L BUN 9 (7-17) mg/dL Creatinine 0.58 (0.52-1.04) mg/dL Estimated GFR > 60.0 ML/MIN Glucose 207 H (74-106) mg/dL Lactic Acid 1.2 (0.4-2.0) Calcium 8.8 (8.4-10.2) mg/dL Total Bilirubin 0.30 (0.2-1.3) mg/dL AST 31 (14-36) U/L ALT 25 (0-35) U/L Alkaline Phosphatase 53 (38-126) U/L Serum Total Protein 7.4 (6.3-8.2) g/dL Albumin 4.1 (3.5-5.0) g/dL Amylase 116 H (30-110) U/L Lipase 657 H (23-300) U/L Urine Color (Yellow) Urine Appearance (Clear) Urine pH (4.6-8.0) Ur Specific [place] (1.005-1.030) Urine Protein (Negative) Urine Glucose (UA) (Negative) mg/dL Urine Ketones (Negative) Urine Blood (Negative) Urine Nitrite (Negative) Urine Bilirubin (Negative) Urine Urobilinogen (0.2) mg/dL Ur Leukocyte Esterase (Negative) U Hyaline Cast (Auto) (0-2) /LPF Urine Microscopic RBC (0-5) /HPF Urine Microscopic WBC (0-5) /HPF Ur Epithelial Cells (None Seen) /HPF Urine Bacteria (None Seen) /HPF Urine Culture Reflexed (NO) Urine Opiates Level (NEGATIVE) Ur Methadone (NEGATIVE) Urine Barbiturates (NEGATIVE) Ur Phencyclidine (PCP) (NEGATIVE) Urine Amphetamine (NEGATIVE) U Benzodiazepine Level (NEGATIVE) Urine Cocaine (NEGATIVE) Urine Marijuana (THC) (NEGATIVE) 01/14/23 01/14/23 Range/Units 14:08 14:08 WBC (4.0-10.5) x10^3/uL RBC (4.1-5.4) x10^6/uL Hgb (12.0-16.0) g/dL Hct (35-47) % MCV (78-100) fL MCH (26-32) pg MCHC (32-36) g/dL RDW (11.5-14.0) % Plt Count (150-450) x10^3/uL MPV (7.5-11.0) fL Gran % (36.0-66.0) % Immature Gran % (Auto) (0.00-0.4) % Nucleat RBC Rel Count (0.00-0.1) % Eos # (Auto) (0-0.5) x10^3/uL Immature Gran # (Auto) (0.00-0.03) x10^3u/L Absolute Lymphs (auto) (1.0-4.6) x10^3/uL Absolute Monos (auto) (0.0-1.3) x10^3/uL Absolute Nucleated RBC (0.00-0.01) x10^3u/L Lymphocytes % (24.0-44.0) % Monocytes % (0.0-12.0) % Eosinophils % (0.00-5.0) % Basophils % (0.0-0.4) % Absolute Granulocytes (1.4-6.9) x10^3/uL Basophils # (0-0.4) x10^3/uL Sodium (137-145) mmol/L Potassium (3.5-5.1) mmol/L Chloride (98-107) mmol/L Carbon Dioxide (22-30) mmol/L Anion Gap (5-15) MEQ/L BUN (7-17) mg/dL Creatinine (0.52-1.04) mg/dL Estimated GFR ML/MIN Glucose (74-106) mg/dL Lactic Acid (0.4-2.0) Calcium (8.4-10.2) mg/dL Total Bilirubin (0.2-1.3) mg/dL AST (14-36) U/L ALT (0-35) U/L Alkaline Phosphatase (38-126) U/L Serum Total Protein (6.3-8.2) g/dL Albumin (3.5-5.0) g/dL Amylase (30-110) U/L Lipase (23-300) U/L Urine Color Yellow (Yellow) Urine Appearance Clear (Clear) Urine pH 6.5 (4.6-8.0) Ur Specific [place] 1.010 (1.005-1.030) Urine Protein Negative (Negative) Urine Glucose (UA) 250 A (Negative) mg/dL Urine Ketones Negative (Negative) Urine Blood Negative (Negative) Urine Nitrite Negative (Negative) Urine Bilirubin Negative (Negative) Urine Urobilinogen 0.2 (0.2) mg/dL Ur Leukocyte Esterase Negative (Negative) U Hyaline Cast (Auto) NONE SEEN (0-2) /LPF Urine Microscopic RBC 0-2 (0-5) /HPF Urine Microscopic WBC 0-2 (0-5) /HPF Ur Epithelial Cells Rare (None Seen) /HPF Urine Bacteria None Seen (None Seen) /HPF Urine Culture Reflexed NO (NO) Urine Opiates Level NEGATIVE (NEGATIVE) Ur Methadone NEGATIVE (NEGATIVE) Urine Barbiturates NEGATIVE (NEGATIVE) Ur Phencyclidine (PCP) NEGATIVE (NEGATIVE) Urine Amphetamine NEGATIVE (NEGATIVE) U Benzodiazepine Level NEGATIVE (NEGATIVE) Urine Cocaine NEGATIVE (NEGATIVE) Urine Marijuana (THC) NEGATIVE (NEGATIVE) - Radiology Impressions Radiology Exams & Impressions: Radiology Procedures Category Date Time Status ABDOMEN AND PELVIS W CONTRAST [CT] Stat Exams 01/14/23 14:22 Completed Assessment/Plan (1) Pancreatitis Current Visit: Yes Status: Acute Assessment & Plan: - Amylase 116, Lipase 657 - NPO - ice chips - LR at 250ml/hr - Zofran, Compazine PRN N/V - Protonix - Dilaudid PRN - CT Abd/pelvis - Consider US Code(s): K85.90 - ACUTE PANCREATITIS WITHOUT NECROSIS OR INFECTION, UNSP (2) Anxiety and depression Current Visit: Yes Status: Acute Assessment & Plan: - She currently does not take anything for this and does not have a thearpist. - She reports she is currently looking for a new PCP as she has moved. Code(s): F41.9 - ANXIETY DISORDER, UNSPECIFIED; F32.A - DEPRESSION, UNSPECIFIED (3) Diabetic peripheral neuropathy associated with type 2 diabetes mellitus Current Visit: Yes Status: Acute Assessment & Plan: - Continue Gabapentin when able Code(s): E11.42 - TYPE 2 DIABETES MELLITUS WITH DIABETIC POLYNEUROPATHY (4) Nicotine dependence Current Visit: Yes Status: Acute Assessment & Plan: - advised cessation - nicotine patch Code(s): F17.200 - NICOTINE DEPENDENCE, UNSPECIFIED, UNCOMPLICATED (5) Methamphetamine dependence Current Visit: Yes Status: Acute Assessment & Plan: - pt reports last use was 2 months ago Code(s): F15.20 - OTHER STIMULANT DEPENDENCE, UNCOMPLICATED (6) Type 2 diabetes mellitus Current Visit: No Status: Chronic Qualifiers: Assessment & Plan: -Continue Levemir - A1C - S/S low dose (7) History of migraine headaches Current Visit: Yes Status: Acute Assessment & Plan: - Continue Imitrex PRN - Propanolol - cont when able Code(s): Z86.69 - PERSONAL HISTORY OF DIS OF THE NERVOUS SYS AND SENSE ORGANS (8) Chronic pain Current Visit: Yes Status: Acute Assessment & Plan: - Hold PO meds for now - Pt does not want belbuca restarted as it makes her sleepy. VTE: SCD's PPI: Protonix Next of Kin: Code status; Full D/C plan: 1-2 days Code(s): G89.29 - OTHER CHRONIC PAIN Telemedicine Encounter - Telemedicine Encounter Telemedicine Encounter: The entirety of this encounter was performed via Telemedicine"
[2023-01-14] MEDS ORDERED: Compazine 10 MG/2 ML IV PRN (16:36)
[2023-01-14] MEDS ORDERED: HUMALOG SQ PRN ×2 (16:39→16:40)
[2023-01-14] MEDS ORDERED: GLYCERIN ADULT SUPPOSITORY RC PRN (16:41)
[2023-01-14] MEDS ORDERED: NICODERM CQ 14 MG ONE (16:47)
[2023-01-14] MEDS: Lactated Ringers 1,000 ML IV SCH ×2 (16:50→20:28)
[2023-01-14] MEDS: Hydromorphone 1 mg/ml Injection IV PRN (16:50)
[2023-01-14] MEDS ORDERED: PROTONIX 40 MG IV IV SCH (17:00)
[2023-01-14] MEDS ORDERED: NICODERM CQ 14 MG TOP SCH (17:00)
[2023-01-14] MEDS ORDERED: NON-FORMULARY ITEM (Insulin Detemir [Levemir] 100 UNIT/ML Vial) SQ SCH (22:00)
[2023-01-15] MEDS: Lactated Ringers 1,000 ML IV SCH ×3 (00:32→08:29)
[2023-01-15] MEDS: Hydromorphone 1 mg/ml Injection IV PRN ×2 (00:32→06:39)
[2023-01-15 04:41] LABS: Hematocrit 34.5 % (35-47); Hemoglobin 11.1 g/dL (12.0-16.0); Mean Cell Volume 90.8 fL (78-100); Mean Corpuscular Hemoglobin 29.2 pg (26-32); Mean Corpuscular Hgb Concent. 32.2 g/dL (32-36); Mean Platelet Volume 9.2 fL (7.5-11.0); Platelet Count 219 x10^3/uL (150-450); Red Cell Distribution Width 13.1 % (11.5-14.0); White Blood Count 7.6 x10^3/uL (4.0-10.5)
[2023-01-15 04:56] LABS: ALBUMIN 2.9 g/dL (3.5-5.0); ALKALINE PHOSPHATASE 50 U/L (38-126); ANION GAP 5.7 MEQ/L (5-15); BLOOD UREA NITROGEN 5 mg/dL (7-17); CHLORIDE 112 mmol/L (98-107); Carbon Dioxide 22 mmol/L (22-30); Creatinine 1 0.61 mg/dL (0.52-1.04); EST GLOMERULAR FILTRATION RATE > 60.0 ML/MIN; Glucose 104 mg/dL (74-106); LIPASE 220 U/L (23-300); MAGNESIUM 1.8 mg/dL (1.6-2.3); Potassium 3.5 mmol/L (3.5-5.1); SGOT/AST 31 U/L (14-36); SGPT/ALT 23 U/L (0-35); SODIUM 136 mmol/L (137-145); Total Protein 5.6 g/dL (6.3-8.2)
--- NOTE | 2023-01-15 05:57 | PCM.NOTE ---
Date and Time: 01/15/23 0552 Subjective Assessment: is a 37 year old female with PMHx of GERD, DM, and neuropathy. Patient is a 37-year-old white female who presents with a complaint of abdominal pain, nausea, and vomiting since last evening. She was seen in [facility] approximately 3 to [address] scan which showed only a nonobstructive kidney stone 3 mm. Her lipase at that time was normal for their scale. Her lipase today is 657. She has continued N/V, and overall abd. pain. She received and IV fluid bolus in the ER. Will add compazine for n/v since she continues to have sxs. She has no hx of alcohol use. The last time she used Meth was 2 months ago. She reports anxiety and depression but does not take anything for this. Dr. Morrissey is her silo painter for chronic pain. She reports overall pain and peripheral neuropathy. She stopped taking belbuca because she was sleeping all the time and could not take care of her children. Admitted for pancreatitis, Lipase and amylase mildly elevated. CT does not show changes of pancreatitis. Patient has had cholecystectomy and does not use alcohol. I am not sure this is pancreatitis. May just be gastroenteritis. Plan is bowel rest, IV fluids and pain control. Patient has type 2 diabetes. Monitor BS, SS insulin. Patient endorses improvement overall in symptoms. No more nausea/vomiting. Pain is controlled. Will advance diet today, when able to tolerate a diet, will stop IV pain meds, transition to oral. Most likely to discharge tomorrow. has dis cussed resources for mental health/[facility]. Glucometer will be provided on D/C. - Review of Systems Constitutional: No Symptoms Eyes: No Symptoms Ears, Nose, & Throat: No Symptoms Respiratory: No Symptoms Cardiac: No Symptoms Abdominal/Gastrointestinal: Abdominal Pain Genitourinary Symptoms: No Symptoms Musculoskeletal: No Symptoms Skin: No Symptoms Neurological: No Symptoms Psychological: No Symptoms Endocrine: No Symptoms Hematologic/Lymphatic: No Symptoms Immunological/Allergic: No Symptoms Objective Exam General Appearance: no apparent distress Neurologic Exam: alert, oriented x 3, cooperative Skin Exam: normal color Eye Exam: PERRL Ears, Nose, Throat Exam: normal ENT inspection Neck Exam: normal inspection Respiratory Exam: normal breath sounds, lungs clear Cardiovascular Exam: regular rate/rhythm, normal heart sounds Gastrointestinal/Abdomen Exam: soft, normal bowel sounds, tenderness Extremity Exam: normal inspection Back Exam: normal inspection Pelvic Exam: deferred Rectal Exam: deferred OBJECTIVE DATA Vital Signs: Vital Signs - 24 hr Temp Pulse Resp BP BP Pulse Ox 01/15/23 04:00 97.0 F 93 H 20 111/57 94 L 01/15/23 00:00 98.0 F 77 18 99/62 100 01/14/23 20:00 18 01/14/23 19:55 98.1 F 77 18 95/53 97 01/14/23 16:18 97.1 F 90 19 159/72 100 01/14/23 15:37 100 01/14/23 14:40 94 H 16 100 01/14/23 14:33 99 H 22 99 01/14/23 14:09 127/78 01/14/23 13:21 98.1 F 102 H 20 139/89 100 Pain Assessment - Last Documented Pain Intensity 7 Pain Scale Used [facility] Intake and Output: Intake & Output 01/12/23 01/13/23 01/14/23 01/15/23 11:59 11:59 11:59 11:59 Intake Total 2740 Output Total 1100 Balance 1640 Weight 80.3 kg Lab Results: Lab Results-Last 24 Hours 01/14/23 01/14/23 01/14/23 Range/Units 13:34 13:34 13:34 WBC 9.4 (4.0-10.5) x10^3/uL RBC 4.59 (4.1-5.4) x10^6/uL Hgb 13.6 (12.0-16.0) g/dL Hct 41.2 (35-47) % MCV 89.8 (78-100) fL MCH 29.6 (26-32) pg MCHC 33.0 (32-36) g/dL RDW 12.7 (11.5-14.0) % Plt Count 253 (150-450) x10^3/uL MPV 9.2 (7.5-11.0) fL Gran % 55.2 (36.0-66.0) % Immature Gran % (Auto) 0.4 (0.00-0.4) % Nucleat RBC Rel Count 0.0 (0.00-0.1) % Eos # (Auto) 0.26 (0-0.5) x10^3/uL Immature Gran # (Auto) 0.04 H (0.00-0.03) x10^3u/L Absolute Lymphs (auto) 3.07 (1.0-4.6) x10^3/uL Absolute Monos (auto) 0.79 (0.0-1.3) x10^3/uL Absolute Nucleated RBC 0.00 (0.00-0.01) x10^3u/L Lymphocytes % 32.7 (24.0-44.0) % Monocytes % 8.4 (0.0-12.0) % Eosinophils % 2.8 (0.00-5.0) % Basophils % 0.5 (0.0-0.4) % Absolute Granulocytes 5.17 (1.4-6.9) x10^3/uL Basophils # 0.05 (0-0.4) x10^3/uL Sodium 136 L (137-145) mmol/L Potassium 3.9 (3.5-5.1) mmol/L Chloride 107 (98-107) mmol/L Carbon Dioxide 22 (22-30) mmol/L Anion Gap 11.4 (5-15) MEQ/L BUN 9 (7-17) mg/dL Creatinine 0.58 (0.52-1.04) mg/dL Estimated GFR > 60.0 ML/MIN Glucose 207 H (74-106) mg/dL POC Glucometer (74 to 106) mg/dL Hemoglobin A1c (4.5-6.0) % Lactic Acid 1.2 (0.4-2.0) Calcium 8.8 (8.4-10.2) mg/dL Magnesium (1.6-2.3) mg/dL Total Bilirubin 0.30 (0.2-1.3) mg/dL AST 31 (14-36) U/L ALT 25 (0-35) U/L Alkaline Phosphatase 53 (38-126) U/L Serum Total Protein 7.4 (6.3-8.2) g/dL Albumin 4.1 (3.5-5.0) g/dL Amylase 116 H (30-110) U/L Lipase 657 H (23-300) U/L Urine Color (Yellow) Urine Appearance (Clear) Urine pH (4.6-8.0) Ur Specific [place] (1.005-1.030) Urine Protein (Negative) Urine Glucose (UA) (Negative) mg/dL Urine Ketones (Negative) Urine Blood (Negative) Urine Nitrite (Negative) Urine Bilirubin (Negative) Urine Urobilinogen (0.2) mg/dL Ur Leukocyte Esterase (Negative) U Hyaline Cast (Auto) (0-2) /LPF Urine Microscopic RBC (0-5) /HPF Urine Microscopic WBC (0-5) /HPF Ur Epithelial Cells (None Seen) /HPF Urine Bacteria (None Seen) /HPF Urine Culture Reflexed (NO) Urine Opiates Level (NEGATIVE) Ur Methadone (NEGATIVE) Urine Barbiturates (NEGATIVE) Ur Phencyclidine (PCP) (NEGATIVE) Urine Amphetamine (NEGATIVE) U Benzodiazepine Level (NEGATIVE) Urine Cocaine (NEGATIVE) Urine Marijuana (THC) (NEGATIVE) 01/14/23 01/14/23 01/14/23 Range/Units 13:34 14:08 14:08 WBC (4.0-10.5) x10^3/uL RBC (4.1-5.4) x10^6/uL Hgb (12.0-16.0) g/dL Hct (35-47) % MCV (78-100) fL MCH (26-32) pg MCHC (32-36) g/dL RDW (11.5-14.0) % Plt Count (150-450) x10^3/uL MPV (7.5-11.0) fL Gran % (36.0-66.0) % Immature Gran % (Auto) (0.00-0.4) % Nucleat RBC Rel Count (0.00-0.1) % Eos # (Auto) (0-0.5) x10^3/uL Immature Gran # (Auto) (0.00-0.03) x10^3u/L Absolute Lymphs (auto) (1.0-4.6) x10^3/uL Absolute Monos (auto) (0.0-1.3) x10^3/uL Absolute Nucleated RBC (0.00-0.01) x10^3u/L Lymphocytes % (24.0-44.0) % Monocytes % (0.0-12.0) % Eosinophils % (0.00-5.0) % Basophils % (0.0-0.4) % Absolute Granulocytes (1.4-6.9) x10^3/uL Basophils # (0-0.4) x10^3/uL Sodium (137-145) mmol/L Potassium (3.5-5.1) mmol/L Chloride (98-107) mmol/L Carbon Dioxide (22-30) mmol/L Anion Gap (5-15) MEQ/L BUN (7-17) mg/dL Creatinine (0.52-1.04) mg/dL Estimated GFR ML/MIN Glucose (74-106) mg/dL POC Glucometer (74 to 106) mg/dL Hemoglobin A1c 7.82 H (4.5-6.0) % Lactic Acid (0.4-2.0) Calcium (8.4-10.2) mg/dL Magnesium (1.6-2.3) mg/dL Total Bilirubin (0.2-1.3) mg/dL AST (14-36) U/L ALT (0-35) U/L Alkaline Phosphatase (38-126) U/L Serum Total Protein (6.3-8.2) g/dL Albumin (3.5-5.0) g/dL Amylase (30-110) U/L Lipase (23-300) U/L Urine Color Yellow (Yellow) Urine Appearance Clear (Clear) Urine pH 6.5 (4.6-8.0) Ur Specific [place] 1.010 (1.005-1.030) Urine Protein Negative (Negative) Urine Glucose (UA) 250 A (Negative) mg/dL Urine Ketones Negative (Negative) Urine Blood Negative (Negative) Urine Nitrite Negative (Negative) Urine Bilirubin Negative (Negative) Urine Urobilinogen 0.2 (0.2) mg/dL Ur Leukocyte Esterase Negative (Negative) U Hyaline Cast (Auto) NONE SEEN (0-2) /LPF Urine Microscopic RBC 0-2 (0-5) /HPF Urine Microscopic WBC 0-2 (0-5) /HPF Ur Epithelial Cells Rare (None Seen) /HPF Urine Bacteria None Seen (None Seen) /HPF Urine Culture Reflexed NO (NO) Urine Opiates Level NEGATIVE (NEGATIVE) Ur Methadone NEGATIVE (NEGATIVE) Urine Barbiturates NEGATIVE (NEGATIVE) Ur Phencyclidine (PCP) NEGATIVE (NEGATIVE) Urine Amphetamine NEGATIVE (NEGATIVE) U Benzodiazepine Level NEGATIVE (NEGATIVE) Urine Cocaine NEGATIVE (NEGATIVE) Urine Marijuana (THC) NEGATIVE (NEGATIVE) 01/14/23 01/15/23 01/15/23 Range/Units 20:43 04:27 04:27 WBC 7.6 (4.0-10.5) x10^3/uL RBC 3.80 L (4.1-5.4) x10^6/uL Hgb 11.1 L (12.0-16.0) g/dL Hct 34.5 L (35-47) % MCV 90.8 (78-100) fL MCH 29.2 (26-32) pg MCHC 32.2 (32-36) g/dL RDW 13.1 (11.5-14.0) % Plt Count 219 (150-450) x10^3/uL MPV 9.2 (7.5-11.0) fL Gran % (36.0-66.0) % Immature Gran % (Auto) (0.00-0.4) % Nucleat RBC Rel Count (0.00-0.1) % Eos # (Auto) (0-0.5) x10^3/uL Immature Gran # (Auto) (0.00-0.03) x10^3u/L Absolute Lymphs (auto) (1.0-4.6) x10^3/uL Absolute Monos (auto) (0.0-1.3) x10^3/uL Absolute Nucleated RBC (0.00-0.01) x10^3u/L Lymphocytes % (24.0-44.0) % Monocytes % (0.0-12.0) % Eosinophils % (0.00-5.0) % Basophils % (0.0-0.4) % Absolute Granulocytes (1.4-6.9) x10^3/uL Basophils # (0-0.4) x10^3/uL Sodium 136 L (137-145) mmol/L Potassium 3.5 (3.5-5.1) mmol/L Chloride 112 H (98-107) mmol/L Carbon Dioxide 22 (22-30) mmol/L Anion Gap 5.7 (5-15) MEQ/L BUN 5 L (7-17) mg/dL Creatinine 0.61 (0.52-1.04) mg/dL Estimated GFR > 60.0 ML/MIN Glucose 104 (74-106) mg/dL POC Glucometer 117 H (74 to 106) mg/dL Hemoglobin A1c (4.5-6.0) % Lactic Acid (0.4-2.0) Calcium 8.0 L (8.4-10.2) mg/dL Magnesium 1.8 (1.6-2.3) mg/dL Total Bilirubin 0.20 (0.2-1.3) mg/dL AST 31 (14-36) U/L ALT 23 (0-35) U/L Alkaline Phosphatase 50 (38-126) U/L Serum Total Protein 5.6 L (6.3-8.2) g/dL Albumin 2.9 L (3.5-5.0) g/dL Amylase (30-110) U/L Lipase 220 (23-300) U/L Urine Color (Yellow) Urine Appearance (Clear) Urine pH (4.6-8.0) Ur Specific [place] (1.005-1.030) Urine Protein (Negative) Urine Glucose (UA) (Negative) mg/dL Urine Ketones (Negative) Urine Blood (Negative) Urine Nitrite (Negative) Urine Bilirubin (Negative) Urine Urobilinogen (0.2) mg/dL Ur Leukocyte Esterase (Negative) U Hyaline Cast (Auto) (0-2) /LPF Urine Microscopic RBC (0-5) /HPF Urine Microscopic WBC (0-5) /HPF Ur Epithelial Cells (None Seen) /HPF Urine Bacteria (None Seen) /HPF Urine Culture Reflexed (NO) Urine Opiates Level (NEGATIVE) Ur Methadone (NEGATIVE) Urine Barbiturates (NEGATIVE) Ur Phencyclidine (PCP) (NEGATIVE) Urine Amphetamine (NEGATIVE) U Benzodiazepine Level (NEGATIVE) Urine Cocaine (NEGATIVE) Urine Marijuana (THC) (NEGATIVE) Radiology Exams: Radiology Procedures Category Date Time Status ABDOMEN AND PELVIS W CONTRAST [CT] Stat Exams 01/14/23 14:22 Completed Assessment/Plan (1) Pancreatitis Current Visit: Yes Status: Acute Assessment & Plan: - Amylase 116, Lipase 657 - NPO - ice chips - LR at 250ml/hr - Zofran, Compazine PRN N/V - Protonix - Dilaudid PRN - CT Abd/pelvis - Consider US 01/15: -Lipase now at 220 -Plan to ADAT, possible d/c tomorrow -D/C fluids Code(s): K85.90 - ACUTE PANCREATITIS WITHOUT NECROSIS OR INFECTION, UNSP (2) Anxiety and depression Current Visit: Yes Status: Acute Assessment & Plan: - She currently does not take anything for this and does not have a thearpist. - She reports she is currently looking for a new PCP as she has moved. 01/15: -Patient provided with OP resources for therapy eval Code(s): F41.9 - ANXIETY DISORDER, UNSPECIFIED; F32.A - DEPRESSION, UNSPECIFIED (3) Chronic pain Current Visit: Yes Status: Acute Assessment & Plan: - Hold PO meds for now - Pt does not want belbuca restarted as it makes her sleepy. Code(s): G89.29 - OTHER CHRONIC PAIN (4) Diabetic peripheral neuropathy associated with type 2 diabetes mellitus Current Visit: Yes Status: Acute Assessment & Plan: - Continue Gabapentin when able Code(s): E11.42 - TYPE 2 DIABETES MELLITUS WITH DIABETIC POLYNEUROPATHY (5) History of migraine headaches Current Visit: Yes Status: Acute Assessment & Plan: - Continue Imitrex PRN - Propanolol - cont when able Code(s): Z86.69 - PERSONAL HISTORY OF DIS OF THE NERVOUS SYS AND SENSE ORGANS (6) Methamphetamine dependence Current Visit: Yes Status: Acute Assessment & Plan: - pt reports last use was 2 months ago Code(s): F15.20 - OTHER STIMULANT DEPENDENCE, UNCOMPLICATED (7) Nicotine dependence Current Visit: Yes Status: Acute Assessment & Plan: - advised cessation - nicotine patch Code(s): F17.200 - NICOTINE DEPENDENCE, UNSPECIFIED, UNCOMPLICATED (8) Abdominal pain Current Visit: No Status: Acute Assessment & Plan: -Gastritis vs pancreatitis, see pancreatitis Code(s): R10.9 - UNSPECIFIED ABDOMINAL PAIN (9) Type 2 diabetes mellitus Current Visit: No Status: Chronic Qualifiers: Assessment & Plan: -Continue Levemir - A1C - S/S low dose VTE: SCD's PPI: Protonix Next of Kin: Code status; Full D/C plan: 1-2 days
[2023-01-15] MEDS ORDERED: Hydromorphone 1 mg/ml Injection ONE (06:35)
[2023-01-15] MEDS ORDERED: Lantus Insulin SQ SCH (10:00)
[2023-01-15] MEDS ORDERED: PROTONIX 40 MG IV IV SCH (10:00)
[2023-01-15] MEDS ORDERED: NICOTINE PATCH 7MG TD SCH (10:00)
[2023-01-15 12:00] VITALS: BP 129/80; PULSE 83; RESP 18; TEMP 97; O2SAT 97
--- NOTE | 2023-01-15 12:50 | PCM.DS ---
Discharge Summary Date of Admission: 01/14/23 15:55 Date of Discharge: 01/15/23 Admitting Physician: DELMIS WHITING MD Consults: Consults on Case 01/14/23 16:30 Case Management SDOH DC Needs Assessment ROUTINE Primary Care Provider: NO FAMILY DOCTOR Allergies Allergies ketorolac [From Toradol] Allergy (Verified 01/11/22 16:54) promethazine [From Phenergan] Allergy (Verified 01/11/22 16:54) tramadol Allergy (Verified 01/11/22 16:54) diphenhydramine [From Benadryl] Adverse Reaction (Verified 01/11/22 16:54) Hospital Summary - Hospital Course Hospital Course: is a 37 year old female with PMHx of GERD, DM, and neuropathy. Patient is a 37-year-old white female who presents with a complaint of abdominal pain, nausea, and vomiting since last evening. She was seen in [place] approximately 3 to [address] scan which showed only a nonobstructive kidney stone 3 mm. Her lipase at that time was normal for their scale. Her lipase today is 657. She has continued N/V, and overall abd. pain. She reports anxiety and depression but does not take anything for this. Dr. 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 She reports overall pain and peripheral neuropathy. She stopped taking belbuca because she was sleeping all the time and could not take care of her children. Admitted for pancreatitis, Lipase and amylase mildly elevated initially, now wnl. CT does not show changes of pancreatitis. Patient has had cholecystectomy and does not use alcohol. I am not sure this is pancreatitis. May just be gastroenteritis. Patient has improved overnight, no longer with pain, nausea, or vomiting. She is tolerating a regular diet. CM has discussed resources for mental health/[facility]. Glucometer will be provided on D/C. Patient is agreeable to plan and ready for discharge. Patient is advised follow up with her PCP and Pain managment physician. New Diagnosis: Pancreatitis New Medications: none Follow Up: PCP/Pain management Latest Assessment & Plan (1) Pancreatitis Current Visit: Yes Status: Acute Assessment & Plan: - Amylase 116, Lipase 657 - NPO - ice chips - LR at 250ml/hr - Zofran, Compazine PRN N/V - Protonix - Dilaudid PRN - CT Abd/pelvis - Consider US 01/15: -Lipase now at 220 -Plan to ADAT, possible d/c tomorrow -D/C fluids Code(s): K85.90 - ACUTE PANCREATITIS WITHOUT NECROSIS OR INFECTION, UNSP (2) Anxiety and depression Current Visit: Yes Status: Acute Assessment & Plan: - She currently does not take anything for this and does not have a thearpist. - She reports she is currently looking for a new PCP as she has moved. 01/15: -Patient provided with OP resources for therapy eval Code(s): F41.9 - ANXIETY DISORDER, UNSPECIFIED; F32.A - DEPRESSION, UNSPECIFIED (3) Chronic pain Current Visit: Yes Status: Acute Assessment & Plan: - Hold PO meds for now - Pt does not want belbuca restarted as it makes her sleepy. Code(s): G89.29 - OTHER CHRONIC PAIN (4) Diabetic peripheral neuropathy associated with type 2 diabetes mellitus Current Visit: Yes Status: Acute Assessment & Plan: - Continue Gabapentin when able Code(s): E11.42 - TYPE 2 DIABETES MELLITUS WITH DIABETIC POLYNEUROPATHY (5) History of migraine headaches Current Visit: Yes Status: Acute Assessment & Plan: - Continue Imitrex PRN - Propanolol - cont when able Code(s): Z86.69 - PERSONAL HISTORY OF DIS OF THE NERVOUS SYS AND SENSE ORGANS (6) Methamphetamine dependence Current Visit: Yes Status: Acute Assessment & Plan: - pt reports last use was 2 months ago Code(s): F15.20 - OTHER STIMULANT DEPENDENCE, UNCOMPLICATED (7) Nicotine dependence Current Visit: Yes Status: Acute Assessment & Plan: - advised cessation - nicotine patch Code(s): F17.200 - NICOTINE DEPENDENCE, UNSPECIFIED, UNCOMPLICATED (8) Abdominal pain Current Visit: No Status: Acute Assessment & Plan: -Gastritis vs pancreatitis, see pancreatitis Code(s): R10.9 - UNSPECIFIED ABDOMINAL PAIN (9) Type 2 diabetes mellitus Current Visit: No Status: Chronic Qualifiers: Assessment & Plan: -Continue Levemir - A1C - S/S low dose I spent 35 minutes [id number] with the patient on the day of discharge performing discharge exam, discussing hospital stay and discharge instructions with patient and caregivers, preparation of discharge records, prescriptions & referral forms and addressing any questions/concerns the patient had as documented above. - Vitals & Intake/Output Vital Signs: Vital Signs Temperature 97.0 F 01/15/23 11:59 Pulse Rate 83 01/15/23 11:59 Respiratory Rate 18 01/15/23 11:59 Blood Pressure 129/80 01/15/23 11:59 O2 Sat by Pulse Oximetry 97 01/15/23 11:59 Intake & Output: Intake & Output 01/13/23 01/14/23 01/15/23 01/16/23 11:59 11:59 11:59 11:59 Intake Total 2765 Output Total 1100 Balance 1665 Weight 80.3 kg - Lab Result Diagrams: 01/15/23 04:27 01/15/23 04:27 Lab Results-Last 24 Hrs: Lab Results-Last 24 Hours 01/14/23 01/14/23 01/14/23 Range/Units 13:34 13:34 13:34 WBC 9.4 (4.0-10.5) x10^3/uL RBC 4.59 (4.1-5.4) x10^6/uL Hgb 13.6 (12.0-16.0) g/dL Hct 41.2 (35-47) % MCV 89.8 (78-100) fL MCH 29.6 (26-32) pg MCHC 33.0 (32-36) g/dL RDW 12.7 (11.5-14.0) % Plt Count 253 (150-450) x10^3/uL MPV 9.2 (7.5-11.0) fL Gran % 55.2 (36.0-66.0) % Immature Gran % (Auto) 0.4 (0.00-0.4) % Nucleat RBC Rel Count 0.0 (0.00-0.1) % Eos # (Auto) 0.26 (0-0.5) x10^3/uL Immature Gran # (Auto) 0.04 H (0.00-0.03) x10^3u/L Absolute Lymphs (auto) 3.07 (1.0-4.6) x10^3/uL Absolute Monos (auto) 0.79 (0.0-1.3) x10^3/uL Absolute Nucleated RBC 0.00 (0.00-0.01) x10^3u/L Lymphocytes % 32.7 (24.0-44.0) % Monocytes % 8.4 (0.0-12.0) % Eosinophils % 2.8 (0.00-5.0) % Basophils % 0.5 (0.0-0.4) % Absolute Granulocytes 5.17 (1.4-6.9) x10^3/uL Basophils # 0.05 (0-0.4) x10^3/uL Sodium 136 L (137-145) mmol/L Potassium 3.9 (3.5-5.1) mmol/L Chloride 107 (98-107) mmol/L Carbon Dioxide 22 (22-30) mmol/L Anion Gap 11.4 (5-15) MEQ/L BUN 9 (7-17) mg/dL Creatinine 0.58 (0.52-1.04) mg/dL Estimated GFR > 60.0 ML/MIN Glucose 207 H (74-106) mg/dL POC Glucometer (74 to 106) mg/dL Hemoglobin A1c (4.5-6.0) % Lactic Acid 1.2 (0.4-2.0) Calcium 8.8 (8.4-10.2) mg/dL Magnesium (1.6-2.3) mg/dL Total Bilirubin 0.30 (0.2-1.3) mg/dL AST 31 (14-36) U/L ALT 25 (0-35) U/L Alkaline Phosphatase 53 (38-126) U/L Serum Total Protein 7.4 (6.3-8.2) g/dL Albumin 4.1 (3.5-5.0) g/dL Amylase 116 H (30-110) U/L Lipase 657 H (23-300) U/L Urine Color (Yellow) Urine Appearance (Clear) Urine pH (4.6-8.0) Ur Specific [place] (1.005-1.030) Urine Protein (Negative) Urine Glucose (UA) (Negative) mg/dL Urine Ketones (Negative) Urine Blood (Negative) Urine Nitrite (Negative) Urine Bilirubin (Negative) Urine Urobilinogen (0.2) mg/dL Ur Leukocyte Esterase (Negative) U Hyaline Cast (Auto) (0-2) /LPF Urine Microscopic RBC (0-5) /HPF Urine Microscopic WBC (0-5) /HPF Ur Epithelial Cells (None Seen) /HPF Urine Bacteria (None Seen) /HPF Urine Culture Reflexed (NO) Urine Opiates Level (NEGATIVE) Ur Methadone (NEGATIVE) Urine Barbiturates (NEGATIVE) Ur Phencyclidine (PCP) (NEGATIVE) Urine Amphetamine (NEGATIVE) U Benzodiazepine Level (NEGATIVE) Urine Cocaine (NEGATIVE) Urine Marijuana (THC) (NEGATIVE) 01/14/23 01/14/23 01/14/23 Range/Units 13:34 14:08 14:08 WBC (4.0-10.5) x10^3/uL RBC (4.1-5.4) x10^6/uL Hgb (12.0-16.0) g/dL Hct (35-47) % MCV (78-100) fL MCH (26-32) pg MCHC (32-36) g/dL RDW (11.5-14.0) % Plt Count (150-450) x10^3/uL MPV (7.5-11.0) fL Gran % (36.0-66.0) % Immature Gran % (Auto) (0.00-0.4) % Nucleat RBC Rel Count (0.00-0.1) % Eos # (Auto) (0-0.5) x10^3/uL Immature Gran # (Auto) (0.00-0.03) x10^3u/L Absolute Lymphs (auto) (1.0-4.6) x10^3/uL Absolute Monos (auto) (0.0-1.3) x10^3/uL Absolute Nucleated RBC (0.00-0.01) x10^3u/L Lymphocytes % (24.0-44.0) % Monocytes % (0.0-12.0) % Eosinophils % (0.00-5.0) % Basophils % (0.0-0.4) % Absolute Granulocytes (1.4-6.9) x10^3/uL Basophils # (0-0.4) x10^3/uL Sodium (137-145) mmol/L Potassium (3.5-5.1) mmol/L Chloride (98-107) mmol/L Carbon Dioxide (22-30) mmol/L Anion Gap (5-15) MEQ/L BUN (7-17) mg/dL Creatinine (0.52-1.04) mg/dL Estimated GFR ML/MIN Glucose (74-106) mg/dL POC Glucometer (74 to 106) mg/dL Hemoglobin A1c 7.82 H (4.5-6.0) % Lactic Acid (0.4-2.0) Calcium (8.4-10.2) mg/dL Magnesium (1.6-2.3) mg/dL Total Bilirubin (0.2-1.3) mg/dL AST (14-36) U/L ALT (0-35) U/L Alkaline Phosphatase (38-126) U/L Serum Total Protein (6.3-8.2) g/dL Albumin (3.5-5.0) g/dL Amylase (30-110) U/L Lipase (23-300) U/L Urine Color Yellow (Yellow) Urine Appearance Clear (Clear) Urine pH 6.5 (4.6-8.0) Ur Specific [place] 1.010 (1.005-1.030) Urine Protein Negative (Negative) Urine Glucose (UA) 250 A (Negative) mg/dL Urine Ketones Negative (Negative) Urine Blood Negative (Negative) Urine Nitrite Negative (Negative) Urine Bilirubin Negative (Negative) Urine Urobilinogen 0.2 (0.2) mg/dL Ur Leukocyte Esterase Negative (Negative) U Hyaline Cast (Auto) NONE SEEN (0-2) /LPF Urine Microscopic RBC 0-2 (0-5) /HPF Urine Microscopic WBC 0-2 (0-5) /HPF Ur Epithelial Cells Rare (None Seen) /HPF Urine Bacteria None Seen (None Seen) /HPF Urine Culture Reflexed NO (NO) Urine Opiates Level NEGATIVE (NEGATIVE) Ur Methadone NEGATIVE (NEGATIVE) Urine Barbiturates NEGATIVE (NEGATIVE) Ur Phencyclidine (PCP) NEGATIVE (NEGATIVE) Urine Amphetamine NEGATIVE (NEGATIVE) U Benzodiazepine Level NEGATIVE (NEGATIVE) Urine Cocaine NEGATIVE (NEGATIVE) Urine Marijuana (THC) NEGATIVE (NEGATIVE) 01/14/23 01/15/23 01/15/23 Range/Units 20:43 04:27 04:27 WBC 7.6 (4.0-10.5) x10^3/uL RBC 3.80 L (4.1-5.4) x10^6/uL Hgb 11.1 L (12.0-16.0) g/dL Hct 34.5 L (35-47) % MCV 90.8 (78-100) fL MCH 29.2 (26-32) pg MCHC 32.2 (32-36) g/dL RDW 13.1 (11.5-14.0) % Plt Count 219 (150-450) x10^3/uL MPV 9.2 (7.5-11.0) fL Gran % (36.0-66.0) % Immature Gran % (Auto) (0.00-0.4) % Nucleat RBC Rel Count (0.00-0.1) % Eos # (Auto) (0-0.5) x10^3/uL Immature Gran # (Auto) (0.00-0.03) x10^3u/L Absolute Lymphs (auto) (1.0-4.6) x10^3/uL Absolute Monos (auto) (0.0-1.3) x10^3/uL Absolute Nucleated RBC (0.00-0.01) x10^3u/L Lymphocytes % (24.0-44.0) % Monocytes % (0.0-12.0) % Eosinophils % (0.00-5.0) % Basophils % (0.0-0.4) % Absolute Granulocytes (1.4-6.9) x10^3/uL Basophils # (0-0.4) x10^3/uL Sodium 136 L (137-145) mmol/L Potassium 3.5 (3.5-5.1) mmol/L Chloride 112 H (98-107) mmol/L Carbon Dioxide 22 (22-30) mmol/L Anion Gap 5.7 (5-15) MEQ/L BUN 5 L (7-17) mg/dL Creatinine 0.61 (0.52-1.04) mg/dL Estimated GFR > 60.0 ML/MIN Glucose 104 (74-106) mg/dL POC Glucometer 117 H (74 to 106) mg/dL Hemoglobin A1c (4.5-6.0) % Lactic Acid (0.4-2.0) Calcium 8.0 L (8.4-10.2) mg/dL Magnesium 1.8 (1.6-2.3) mg/dL Total Bilirubin 0.20 (0.2-1.3) mg/dL AST 31 (14-36) U/L ALT 23 (0-35) U/L Alkaline Phosphatase 50 (38-126) U/L Serum Total Protein 5.6 L (6.3-8.2) g/dL Albumin 2.9 L (3.5-5.0) g/dL Amylase (30-110) U/L Lipase 220 (23-300) U/L Urine Color (Yellow) Urine Appearance (Clear) Urine pH (4.6-8.0) Ur Specific [place] (1.005-1.030) Urine Protein (Negative) Urine Glucose (UA) (Negative) mg/dL Urine Ketones (Negative) Urine Blood (Negative) Urine Nitrite (Negative) Urine Bilirubin (Negative) Urine Urobilinogen (0.2) mg/dL Ur Leukocyte Esterase (Negative) U Hyaline Cast (Auto) (0-2) /LPF Urine Microscopic RBC (0-5) /HPF Urine Microscopic WBC (0-5) /HPF Ur Epithelial Cells (None Seen) /HPF Urine Bacteria (None Seen) /HPF Urine Culture Reflexed (NO) Urine Opiates Level (NEGATIVE) Ur Methadone (NEGATIVE) Urine Barbiturates (NEGATIVE) Ur Phencyclidine (PCP) (NEGATIVE) Urine Amphetamine (NEGATIVE) U Benzodiazepine Level (NEGATIVE) Urine Cocaine (NEGATIVE) Urine Marijuana (THC) (NEGATIVE) 01/15/23 01/15/23 Range/Units 06:32 11:27 WBC (4.0-10.5) x10^3/uL RBC (4.1-5.4) x10^6/uL Hgb (12.0-16.0) g/dL Hct (35-47) % MCV (78-100) fL MCH (26-32) pg MCHC (32-36) g/dL RDW (11.5-14.0) % Plt Count (150-450) x10^3/uL MPV (7.5-11.0) fL Gran % (36.0-66.0) % Immature Gran % (Auto) (0.00-0.4) % Nucleat RBC Rel Count (0.00-0.1) % Eos # (Auto) (0-0.5) x10^3/uL Immature Gran # (Auto) (0.00-0.03) x10^3u/L Absolute Lymphs (auto) (1.0-4.6) x10^3/uL Absolute Monos (auto) (0.0-1.3) x10^3/uL Absolute Nucleated RBC (0.00-0.01) x10^3u/L Lymphocytes % (24.0-44.0) % Monocytes % (0.0-12.0) % Eosinophils % (0.00-5.0) % Basophils % (0.0-0.4) % Absolute Granulocytes (1.4-6.9) x10^3/uL Basophils # (0-0.4) x10^3/uL Sodium (137-145) mmol/L Potassium (3.5-5.1) mmol/L Chloride (98-107) mmol/L Carbon Dioxide (22-30) mmol/L Anion Gap (5-15) MEQ/L BUN (7-17) mg/dL Creatinine (0.52-1.04) mg/dL Estimated GFR ML/MIN Glucose (74-106) mg/dL POC Glucometer 97 181 H (74 to 106) mg/dL Hemoglobin A1c (4.5-6.0) % Lactic Acid (0.4-2.0) Calcium (8.4-10.2) mg/dL Magnesium (1.6-2.3) mg/dL Total Bilirubin (0.2-1.3) mg/dL AST (14-36) U/L ALT (0-35) U/L Alkaline Phosphatase (38-126) U/L Serum Total Protein (6.3-8.2) g/dL Albumin (3.5-5.0) g/dL Amylase (30-110) U/L Lipase (23-300) U/L Urine Color (Yellow) Urine Appearance (Clear) Urine pH (4.6-8.0) Ur Specific [place] (1.005-1.030) Urine Protein (Negative) Urine Glucose (UA) (Negative) mg/dL Urine Ketones (Negative) Urine Blood (Negative) Urine Nitrite (Negative) Urine Bilirubin (Negative) Urine Urobilinogen (0.2) mg/dL Ur Leukocyte Esterase (Negative) U Hyaline Cast (Auto) (0-2) /LPF Urine Microscopic RBC (0-5) /HPF Urine Microscopic WBC (0-5) /HPF Ur Epithelial Cells (None Seen) /HPF Urine Bacteria (None Seen) /HPF Urine Culture Reflexed (NO) Urine Opiates Level (NEGATIVE) Ur Methadone (NEGATIVE) Urine Barbiturates (NEGATIVE) Ur Phencyclidine (PCP) (NEGATIVE) Urine Amphetamine (NEGATIVE) U Benzodiazepine Level (NEGATIVE) Urine Cocaine (NEGATIVE) Urine Marijuana (THC) (NEGATIVE) Micro Results-Entire Visit: Accuchecks Date 01/15/23 Date 01/14/23 Time 06:51 Time 21:00 - Radiology Exams Ordered Rad Exams-Entire Visit: Radiology Procedures Category Date Time Status ABDOMEN AND PELVIS W CONTRAST [CT] Stat Exams 01/14/23 14:22 Completed - Procedures and Test Procedures and Tests throughout Hospitalization: Therapy Orders & Screens 01/14/23 16:30 Smoking Cessation Education ONCE Comment: Diagnosis: Pancreatitis Smoking Status: Current every day smoker How long have you smoked: 16 yrs Have you smoked in the past 12 months: Yes Approximately how many cigarettes per day: 10 Do you dip or chew tobacco: No Discharge Exam General Appearance: no apparent distress Neurologic Exam: alert, oriented x 3, cooperative Eye Exam: PERRL Ears, Nose, Throat Exam: normal ENT inspection Neck Exam: normal inspection Respiratory Exam: normal breath sounds, lungs clear Cardiovascular Exam: regular rate/rhythm, normal heart sounds Gastrointestinal/Abdomen Exam: soft, normal bowel sounds Pelvic Exam: deferred Rectal Exam: deferred Back Exam: normal inspection Extremity Exam: normal inspection Skin Exam: normal color Final Diagnosis/Problem List - Final Discharge Diagnosis/Problem (1) Pancreatitis Current Visit: Yes Status: Acute Code(s): K85.90 - ACUTE PANCREATITIS WITH OUT NECROSIS OR INFECTION, UNSP (2) Anxiety and depression Current Visit: Yes Status: Acute Code(s): F41.9 - ANXIETY DISORDER, UNSPECIFIED; F32.A - DEPRESSION, UNSPECIFIED (3) Chronic pain Current Visit: Yes Status: Acute Code(s): G89.29 - OTHER CHRONIC PAIN (4) Diabetic peripheral neuropathy associated with type 2 diabetes mellitus Current Visit: Yes Status: Acute Code(s): E11.42 - TYPE 2 DIABETES MELLITUS WITH DIABETIC POLYNEUROPATHY (5) History of migraine headaches Current Visit: Yes Status: Acute Code(s): Z86.69 - PERSONAL HISTORY OF DIS OF THE NERVOUS SYS AND SENSE ORGANS (6) Methamphetamine dependence Current Visit: Yes Status: Acute Code(s): F15.20 - OTHER STIMULANT DEPENDENCE, UNCOMPLICATED (7) Nicotine dependence Current Visit: Yes Status: Acute Code(s): F17.200 - NICOTINE DEPENDENCE, UNSPECIFIED, UNCOMPLICATED (8) Abdominal pain Current Visit: No Status: Acute Code(s): R10.9 - UNSPECIFIED ABDOMINAL PAIN (9) Type 2 diabetes mellitus Current Visit: No Status: Chronic - Discharge Disposition: Home, Self-Care Prescriptions: New Blood Sugar Diagnostic [Accu-Chek Guide Test Strip] 1 each ACHS #30 strip Lancets [Accu-Chek Safe-T-Pro Plus] 1 each ACHS #100 stick Continue Ondansetron ODT 4 MG [Zofran Odt 4 mg] 4 mg PO Q6H PRN PRN #10 tablet PRN Reason: Nausea Insulin Detemir [Levemir] 80 units SQ BID Propranolol HCl [Inderal ] 60 mg PO BID Hydrocodone/Acetaminophen [Hydrocodone-Acetamin 5-325 mg] 1 tab PO TID PRN PRN MDD 3 PRN Reason: Pain PANTOPRAZOLE 40 mg Tablet [Protonix 40MG Tablet] 1 tab PO DAILY SUMAtriptan succinate [Imitrex 50 mg] 50 mg PO DAILY PRN PRN PRN Reason: migraine Pramipexole Di-HCl [Pramipexole Dihydrochloride] 1 mg PO BID Gabapentin 300 mg PO BID Buprenorphine HCl [Belbuca] 600 mcg BC BID Follow up with: DOCTOR,NO FAMILY [Primary Care Provider] -
== END 2023-01-15 13:12 | disposition home or self-care (01) ==
LOC: ED 13:14 → MED SURG 15:55
PROVIDERS: ADMIT Internal Medicine; ATTEND Internal Medicine
DX: K85.90 Acute pancreatitis without necrosis or infection, unspecified (principal); F41.9 Anxiety disorder, unspecified; G89.29 Other chronic pain; E11.42 Type 2 diabetes mellitus with diabetic polyneuropathy; Z86.69 Personal history of other diseases of the nervous system and sense organs; F15.20 Other stimulant dependence, uncomplicated; F17.200 Nicotine dependence, unspecified, uncomplicated; R10.9 Unspecified abdominal pain; Z79.899 Other long term (current) drug therapy; Z20.828 Contact with and (suspected) exposure to other viral communicable diseases
CPT/HCPCS: 36000; 36415; 74177; 80053; 80307; 81001; 82150; 82947; 83036; 83605; 83690; 83735; 85025; 85027; 96360; 99284; Q3014; 93268; J1170; Q0162; A9270-GY; G0378

== ENCOUNTER 2023-01-17 01:20 | Emergency (ER) | payer OTHER ==
[2023-01-17 01:48] VITALS: TEMP 98.2
[2023-01-17] MEDS ORDERED: Zofran 4 MG/2 ML VIAL IV ONE (01:51)
[2023-01-17] MEDS ORDERED: Sodium Chloride 0.9% 1000 ML 1,000 ML IV STA (01:51)
[2023-01-17] MEDS ORDERED: Hydromorphone 1 mg/ml Injection IV ONE (01:51)
[2023-01-17] MEDS ORDERED: Sodium Chloride 0.9% 1000 ML 1,000 ML ONE (01:57)
[2023-01-17] MEDS ORDERED: Hydromorphone 1 mg/ml Injection ONE (01:57)
--- NOTE | 2023-01-17 01:59 | ERPHSYRPT ---
- History of Present Illness Time Seen by Provider: 01/17/23 01:55 Historian: patient Exam Limitations: no limitations Patient Subjective Stated Complaint: pt states that she was released from this hospital on 01/15/23 for pancreatitis then that night started having abd pain. am Sunday she started having nausea and vomiting and reports she has thrown up approx 5 times in last 24hrs and each time it looked like what she had most recently eaten/ drank. Triage Nursing Assessment: pt brought to room 9 via EMS cot then ambulated independently to bathroom with slow steady gait to provide urine specimen. pt refused to answer any questions for checkin in to hospital until her was there, attempted to get but he wasn't in waiting room. she allowed us to start the assessment but refused to go on until we checked to see if he was b ack. back in waiting and brought back to see pt in room. pt is alert and oriented times three, resp even and unlabored, able to speak in complete sentences, able to move all extremities. abd soft nontender nondistended with positive bowel sounds in all quadrants. denies cp, diarrhea, difficulty with urination or bowel elimination, sob, difficulty breathing, lightheadedness, or dizziness. Physician History: Patient 37-year-old female presents to our ED via EMS for flareup of her pancreatitis. Patient was released on 1015 for the same. Patient states her pain started shortly thereafter. Patient states she has been experiencing nausea and vomiting for the past day. She reports vomiting 5 times. Patient's pain is the same as her pancreatitis which was diagnosed just a few days ago. No trauma. No fever. No diaphoresis. Symptoms are moderate in intensity. No specific worsening improving factors. Patient unable to tolerate p.o. Significant other at bedside. They voiced no other complaints or concerns at this time. Portions of this note were created with voice recognition technology. There may be grammatical, spelling, punctuation or sound alike errors Timing/Duration: yesterday (2 days) Activities at Onset: none Quality: aching Abdominal Pain Onset Location: epigastric Pain Radiation: no radiation Severity of Pain-Max: moderate Severity of Pain-Current: mild Modifying Factors: Improves With: nothing Associated Symptoms: denies symptoms Previous symptoms: same symptoms as today Allergies/Adverse Reactions: ketorolac [From Toradol] Allergy (Verified 01/17/23:) promethazine [From Phenergan] Allergy (Verified 01/17/23:26) tramadol Allergy (Verified 01/17/23:) diphenhydramine [From Benadryl] Adverse Reaction (Verified 01/17/23:) Home Medications: Insulin Detemir [Levemir] 80 units SQ BID 01/11/22 [History] Propranolol HCl [Inderal ] 60 mg PO BID 01/11/22 [History] Hydrocodone/Acetaminophen [Hydrocodone-Acetamin 5-325 mg] 1 tab PO TID PRN PRN MDD 3 01/12/22 [History] PANTOPRAZOLE 40 mg Tablet [Protonix 40MG Tablet] 1 tab PO DAILY 01/12/22 [History] Gabapentin 300 mg PO BID 01/21/22 [History] Pramipexole Di-HCl [Pramipexole Dihydrochloride] 1 mg PO BID 01/21/22 [History] SUMAtriptan succinate [Imitrex 50 mg] 50 mg PO DAILY PRN PRN 01/21/22 [History] Hx Tetanus, Diphtheria Vaccination/Date Given: Yes Hx Influenza Vaccination/Date Given: No Hx Pneumococcal Vaccination/Date Given: No Immunizations Up to Date: Yes Travel Risk - International Travel Have you traveled outside of the country in past 3 weeks: No - Coronavirus Screening Are you exhibiting any of the following symptoms?: No Close contact with a COVID-19 positive Pt in past 14-21 Days: No - Vaccine Status Have you recieved a Covid-19 vaccination: No - Review of Systems Constitutional: No Symptoms, No Fever, No Chills Eyes: No Symptoms Ears, Nose, & Throat: No Symptoms Respiratory: No Symptoms, No Cough, No Dyspnea Cardiac: No Symptoms, No Chest Pain, No Edema, No Syncope Abdominal/Gastrointestinal: No Symptoms, No Abdominal Pain, No Nausea, No Vomiting, No Diarrhea Genitourinary Symptoms: No Symptoms, No Dysuria Musculoskeletal: No Symptoms, No Back Pain, No Neck Pain Skin: No Symptoms, No Rash Neurological: No Symptoms, No Dizziness, No Focal Weakness, No Sensory Changes Psychological: No Symptoms Endocrine: No Symptoms Hematologic/Lymphatic: No Symptoms Immunological/Allergic: No Symptoms All Other Systems: Reviewed and Negative - Past Medical History Pertinent Past Medical History: Yes Neurological History: Migraines, Peripheral Neuropathy ENT History: Other Cardiac History: No Pertinent History Respiratory History: No Pertinent History Endocrine Medical History: Diabetes Type II Musculoskeletal History: No Pertinent History GI Medical History: Gallbladder Disease, Pancreatitis History: No Pertinent History Psycho-Social History: Anxiety, Depression Female Reproductive Disorders: No Pertinent History Other Medical History: carpal tunnel bilaterally. RLS - Past Surgical History Past Surgical History: Yes Neuro Surgical History: No Pertinent History Cardiac: No Pertinent History Respiratory: No Pertinent History Gastrointestinal: Cholecystectomy Genitourinary: No Pertinent History Musculoskeletal: No Pertinent History Female Surgical History: Section, Tubal Ligation Other Surgical History: 2 c sections-2nd had tubal as well - Social History Smoking Status: Current every day smoker How long have you smoked: 20yo Exposure to second hand smoke: Yes Alcohol Use: None Drug Use: methamphetamines Patient Lives Alone: No Significant Family History: no pertinent family hx - Female History Hx Last Menstrual Period: 12/18/22 Hx Now: No - Nursing Vital Signs Nursing Vital Signs: Initial Vital Signs Temperature 98.2 F 01/17/23 01:27 Pulse Rate 104 H 01/17/23 01:27 Respiratory Rate 16 01/17/23 01:27 O2 Sat by Pulse Oximetry 97 01/17/23 01:27 Pain Scale Pain Intensity 8 - Physical Exam General Appearance: no apparent distress, alert Eye Exam: PERRL/EOMI, eyes nml inspection Ears, Nose, Throat Exam: normal ENT inspection, pharynx normal, moist mucous membranes Neck Exam: normal inspection, non-tender, supple, full range of motion Respiratory Exam: normal breath sounds, lungs clear, airway intact, No respiratory distress Cardiovascular Exam: regular rate/rhythm, normal heart sounds, normal peripheral pulses Gastrointestinal/Abdomen Exam: soft, tenderness (Epigastric tenderness), No mass Back Exam: normal inspection, normal range of motion, No CVA tenderness, No vertebral tenderness Extremity Exam: normal inspection, normal range of motion, pelvis stable, other (Tenderness to palpation left posterior lateral shoulder. The involved extremity is neurovascular intact distally. Compartments are soft. Cap refill less than 2 seconds.) Neurologic Exam: alert, oriented x 3, cooperative, normal mood/affect, nml cerebellar function, sensation nml, No motor deficits Skin Exam: normal color, warm, dry SpO2 Interpretation: normal SpO2: 95 O2 Delivery: Room Air - Course Nursing assessment & vital signs reviewed: Yes - CT Exams Abdomen/Pelvis CT Interpretation: Tele-radiologist Report (No significant or acute abnormality is seen in the CT abdomen pelvis. In comparison with previous CT findings remain unchanged. Small stable nonobstructing left renal stone. Small marginally enhancing right ovarian follicle/cyst unchanged) Ordered Tests: Active Orders 24 hr Category Date Time Status IV Insertion STAT Care 01/17/23 01:51 Active ABDOMEN AND PELVIS W CONTRAST [CT] Stat Exams 01/17/23 01:53 Taken CBC W DIFF Stat Lab 01/17/23 02:13 Completed CMP Stat Lab 01/17/23 02:13 Completed HCG QUALITATIVE, URINE Stat Lab 01/17/23 02:51 Completed LIPASE Stat Lab 01/17/23 02:13 Completed Lactic Acid Stat Lab 01/17/23 02:15 Completed TROPONIN Q4H Lab 01/17/23 02:13 Completed TROPONIN Q4H Lab 01/17/23 06:00 Ordered TROPONIN Q4H Lab 01/17/23 10:00 Ordered UA W/RFX UR CULTURE Stat Lab 01/17/23 01:54 Completed Medication Summary Discontinued Medications Generic Name Dose Route Start Last Admin Trade Name Freq PRN Reason Stop Dose Admin Hydromorphone HCl 0.5 mg 01/17/23 01:51 01/17/23 01:59 Hydromorphone 1 Mg/1ml Inj IV 01/17/23 01:52 0.5 mg STAT ONE Administration Hydromorphone HCl Confirm 01/17/23 01:57 Hydromorphone 1 Mg/1ml Inj Administered 01/17/23 01:58 Dose 1 mg .ROUTE .STK-MED ONE Sodium Chloride 1,000 mls @ 999 mls/hr 01/17/23 01:51 01/17/23 03:04 Sodium Chloride 0.9% 1000 Ml IV 01/17/23 02:51 Infused .Q1H1M STA Infusion Sodium Chloride Confirm 01/17/23 01:57 Sodium Chloride 0.9% 1000 Ml Administered 01/17/23 01:58 Dose 1,000 mls @ ud .ROUTE .STK-MED ONE Ondansetron HCl 4 mg 01/17/23 01:51 01/17/23 01:56 Ondansetron Hcl 4 Mg/2 Ml Vial IV 01/17/23 01:52 Not Given STAT ONE Lab/Rad Data: Laboratory Result Diagrams 01/17/23 02:13 01/17/23 02:13 Laboratory Results 01/17/23 01/17/23 01/17/23 Range/Units 02:51 02:15 02:13 WBC (4.0-10.5) x10^3/uL RBC (4.1-5.4) x10^6/uL Hgb (12.0-16.0) g/dL Hct (35-47) % MCV (78-100) fL MCH (26-32) pg MCHC (32-36) g/dL RDW (11.5-14.0) % Plt Count (150-450) x10^3/uL MPV (7.5-11.0) fL Gran % (36.0-66.0) % Immature Gran % (Auto) (0.00-0.4) % Nucleat RBC Rel Count (0.00-0.1) % Eos # (Auto) (0-0.5) x10^3/uL Immature Gran # (Auto) (0.00-0.03) x10^3u/L Absolute Lymphs (auto) (1.0-4.6) x10^3/uL Absolute Monos (auto) (0.0-1.3) x10^3/uL Absolute Nucleated RBC (0.00-0.01) x10^3u/L Lymphocytes % (24.0-44.0) % Monocytes % (0.0-12.0) % Eosinophils % (0.00-5.0) % Basophils % (0.0-0.4) % Absolute Granulocytes (1.4-6.9) x10^3/uL Basophils # (0-0.4) x10^3/uL Sodium (137-145) mmol/L Potassium (3.5-5.1) mmol/L Chloride (98-107) mmol/L Carbon Dioxide (22-30) mmol/L Anion Gap (5-15) MEQ/L BUN (7-17) mg/dL Creatinine (0.52-1.04) mg/dL Estimated GFR ML/MIN Glucose (74-106) mg/dL Lactic Acid 0.7 (0.4-2.0) Calcium (8.4-10.2) mg/dL Total Bilirubin (0.2-1.3) mg/dL AST (14-36) U/L ALT (0-35) U/L Alkaline Phosphatase (38-126) U/L Troponin I < 0.012 (0.000-0.034) ng/mL Serum Total Protein (6.3-8.2) g/dL Albumin (3.5-5.0) g/dL Lipase (23-300) U/L Urine Color (Yellow) Urine Appearance (Clear) Urine pH (4.6-8.0) Ur Specific [place] (1.005-1.030) Urine Protein (Negative) Urine Glucose (UA) (Negative) mg/dL Urine Ketones (Negative) Urine Blood (Negative) Urine Nitrite (Negative) Urine Bilirubin (Negative) Urine Urobilinogen (0.2) mg/dL Ur Leukocyte Esterase (Negative) U Hyaline Cast (Auto) (0-2) /LPF Urine Microscopic RBC (0-5) /HPF Urine Microscopic WBC (0-5) /HPF Ur Epithelial Cells (None Seen) /HPF Urine Bacteria (None Seen) /HPF Urine Culture Reflexed (NO) Urine HCG, Qual NEGATIVE (NEGATIVE) 01/17/23 01/17/23 01/17/23 Range/Units 02:13 02:13 01:54 WBC 11.4 H (4.0-10.5) x10^3/uL RBC 4.12 (4.1-5.4) x10^6/uL Hgb 12.1 (12.0-16.0) g/dL Hct 37.0 (35-47) % MCV 89.8 (78-100) fL MCH 29.4 (26-32) pg MCHC 32.7 (32-36) g/dL RDW 13.1 (11.5-14.0) % Plt Count 277 (150-450) x10^3/uL MPV 8.9 (7.5-11.0) fL Gran % 65.1 (36.0-66.0) % Immature Gran % (Auto) 0.3 (0.00-0.4) % Nucleat RBC Rel Count 0.0 (0.00-0.1) % Eos # (Auto) 0.33 (0-0.5) x10^3/uL Immature Gran # (Auto) 0.03 (0.00-0.03) x10^3u/L Absolute Lymphs (auto) 2.65 (1.0-4.6) x10^3/uL Absolute Monos (auto) 0.94 (0.0-1.3) x10^3/uL Absolute Nucleated RBC 0.00 (0.00-0.01) x10^3u/L Lymphocytes % 23.2 L (24.0-44.0) % Monocytes % 8.2 (0.0-12.0) % Eosinophils % 2.9 (0.00-5.0) % Basophils % 0.3 (0.0-0.4) % Absolute Granulocytes 7.42 H (1.4-6.9) x10^3/uL Basophils # 0.03 (0-0.4) x10^3/uL Sodium 136 L (137-145) mmol/L Potassium 3.7 (3.5-5.1) mmol/L Chloride 108 H (98-107) mmol/L Carbon Dioxide 25 (22-30) mmol/L Anion Gap 6.8 (5-15) MEQ/L BUN 9 (7-17) mg/dL Creatinine 0.67 (0.52-1.04) mg/dL Estimated GFR > 60.0 ML/MIN Glucose 156 H (74-106) mg/dL Lactic Acid (0.4-2.0) Calcium 9.3 D (8.4-10.2) mg/dL Total Bilirubin 0.20 (0.2-1.3) mg/dL AST 21 (14-36) U/L ALT 22 (0-35) U/L Alkaline Phosphatase 53 (38-126) U/L Troponin I (0.000-0.034) ng/mL Serum Total Protein 6.1 L (6.3-8.2) g/dL Albumin 3.5 (3.5-5.0) g/dL Lipase 145 (23-300) U/L Urine Color Yellow (Yellow) Urine Appearance Clear (Clear) Urine pH 7.0 (4.6-8.0) Ur Specific [place] <=1.005 (1.005-1.030) Urine Protein Negative (Negative) Urine Glucose (UA) 100 A (Negative) mg/dL Urine Ketones Negative (Negative) Urine Blood Negative (Negative) Urine Nitrite Negative (Negative) Urine Bilirubin Negative (Negative) Urine Urobilinogen 0.2 (0.2) mg/dL Ur Leukocyte Esterase Negative (Negative) U Hyaline Cast (Auto) NONE SEEN (0-2) /LPF Urine Microscopic RBC 0-2 (0-5) /HPF Urine Microscopic WBC 0-2 (0-5) /HPF Ur Epithelial Cells None Seen (None Seen) /HPF Urine Bacteria None Seen (None Seen) /HPF Urine Culture Reflexed NO (NO) Urine HCG, Qual (NEGATIVE) - Progress Progress: improved Progress Note: Patient 29-year-old female presents to our ED for epigastric pain. Patient believes she is experiencing a recurrent bout of pancreatitis. CT abdomen pelvis essentially unchanged from previous. No signs of pancreatic inflammation or fat stranding. CBC CMP essentially unremarkable. hCG negative. Lipase within normal limits. Lactic acid within normal limits. Troponin negative. Urinalysis unremarkable. Patient received Dilaudid Zofran and a liter of IV fluids in our ED. Patient sleeping in the room. Patient appears to be pain- free. Findings discussed with patient. Patient voices no other complaints or concerns at this time. She agrees to follow-up with her primary care doctor within 48 hours for reevaluation. Portions of this note were created with voice recognition technology. There may be grammatical, spelling, punctuation or sound alike errors Complexity problems addressed is moderate acute complicated No critical care time Complexity of data reviewed and analyzed is moderate. Test ordered test reviewed. Results analyzed and clinically correlated with history and physical examination. Risk of complication and or risk morbidity/mortality of patient management is high. Patient received IV Toradol for pain control Patient discharged home. Vital stable. Time spent to discharge patient is approximately 10 minutes. Plan of care established for shared decision making. No social determinants of health present impede follow-up. Portions of this note were created with voice recognition technology. There may be grammatical, spelling, punctuation or sound alike errors 01/17/23 04:49 Counseled pt/family regarding: lab results - Departure Departure Disposition: Home Clinical Impression: Abdominal pain, Colonic diverticulum Condition: Stable Critical Care Time: No Referrals: DOCTOR,NO FAMILY [Primary Care Provider] - Follow up/PCP as directed CRISTÓBAL REEVES MD [ACTIVE STAFF] - Follow up/PCP as directed Additional Instructions: Discharge/Care Plan VASQUEZ AUSTIN was seen on 01/17/23 in the Emergency Room. The patient was counseled regarding Diagnosis,Lab results, Imaging studies, need for follow up and when to return to the Emergency Room. Prescriptions given: Discharge Note I have spoken with the patient and/or caregivers. I have explained the patient's condition, diagnosis and treatment plan based on the information available to me at this time. I have answered the patient's and/or caregiver's questions and addressed any concerns. The patient and/or caregivers have as good understanding of the patient's diagnosis, condition and treatment plan as can be expected at this point. The vital signs have been stable. The patient's condition is stable and appropriate for discharge from the emergency department. The patient will pursue further outpatient evaluation with the primary care physician or other designated or consulting physician as outlined in the discharge instructions. The patient and/or caregivers are agreeable to this plan of care and follow-up instructions have been explained in detail. The patient and/or caregivers have received these instruction. The patient/and or caregivers are aware that any significant change in condition or worsening of symptoms should prompt an immediate return to this or the closest emergency department or call 911.
[2023-01-17 02:16] LABS: Absolute Neutrophil Ct (ANC) 7.42 x10^3/uL (1.4-6.9); BASOPHIL % 0.3 % (0.0-0.4); Basophil (Absolute #) 0.03 x10^3/uL (0-0.4); Eosinophil % 2.9 % (0.00-5.0); Eosinophil (Absolute #) 0.33 x10^3/uL (0-0.5); Hemoglobin 12.1 g/dL (12.0-16.0); IMMATURE GRAN # 0.03 x10^3u/L (0.00-0.03); IMMATURE GRAN % 0.3 % (0.00-0.4); Lymphocyte (Absolute #) 2.65 x10^3/uL (1.0-4.6); Lymphocytes % 23.2 % (24.0-44.0); Mean Cell Volume 89.8 fL (78-100); Mean Corpuscular Hemoglobin 29.4 pg (26-32); Mean Corpuscular Hgb Concent. 32.7 g/dL (32-36); Mean Platelet Volume 8.9 fL (7.5-11.0); Monocyte (Absolute #) 0.94 x10^3/uL (0.0-1.3); Monocytes % 8.2 % (0.0-12.0); Neutrophil % 65.1 % (36.0-66.0); Platelet Count 277 x10^3/uL (150-450); Red Blood Count 4.12 x10^6/uL (4.1-5.4); Red Cell Distribution Width 13.1 % (11.5-14.0); White Blood Count 11.4 x10^3/uL (4.0-10.5)
[2023-01-17 02:38] LABS: ALBUMIN 3.5 g/dL (3.5-5.0); ALKALINE PHOSPHATASE 53 U/L (38-126); ANION GAP 6.8 MEQ/L (5-15); BLOOD UREA NITROGEN 9 mg/dL (7-17); CHLORIDE 108 mmol/L (98-107); Calcium 9.3 mg/dL (8.4-10.2); Carbon Dioxide 25 mmol/L (22-30); Creatinine 1 0.67 mg/dL (0.52-1.04); EST GLOMERULAR FILTRATION RATE > 60.0 ML/MIN; Glucose 156 mg/dL (74-106); LIPASE 145 U/L (23-300); Potassium 3.7 mmol/L (3.5-5.1); SGOT/AST 21 U/L (14-36); SGPT/ALT 22 U/L (0-35); SODIUM 136 mmol/L (137-145); Total Protein 6.1 g/dL (6.3-8.2)
[2023-01-17 02:55] LABS: HCG URINE TEST NEGATIVE (NEGATIVE)
[2023-01-17 02:59] LABS: Appearance Clear (Clear); Bacteria None Seen /HPF (None Seen); Bilirubin Negative (Negative); Blood Negative (Negative); Epithelial Cells None Seen /HPF (None Seen); Glucose, Urine 100 mg/dL (Negative); Hyaline Casts NONE SEEN /LPF (0-2); Ketones Negative (Negative); Leukocyte Esterase Negative (Negative); Nitrite Negative (Negative); Protein,Urine Dip Negative (Negative); RBC 0-2 /HPF (0-5); Specific Gravity <=1.005 (1.005-1.030); Urobilinogen 0.2 mg/dL (0.2); WBC 0-2 /HPF (0-5)
[2023-01-17 03:03] VITALS: RESP 18
[2023-01-17 03:03] LABS: ADD URINE CULTURE? NO (NO)
[2023-01-17 04:33] VITALS: BP 93/62; PULSE 74
[2023-01-17 04:44] VITALS: O2SAT 95
--- NOTE | 2023-01-18 11:08 | XRAY ---
CLINICAL HISTORY:pain COMPARISON:01/14/2023. TECHNIQUE:CT scan of the abdomen and pelvis was performed with IV contrast. Coronal and sagittal reconstructive images were also obtained. FINDINGS: The liver is normal in size. No focal or diffuse parenchymal abnormality. The portal vein, intrahepatic biliary radicals and the bile ducts are normal. The gallbladder is surgically removed. No abnormality is seen in the gallbladder fossa. The spleen, pancreas, and adrenal glands are unremarkable. The kidneys are unremarkable. They are normal in size and shape. No hydronephrosis. There is a solitary 0.3 cm calyceal calculus in the left kidney. The stomach appears unremarkable. Unremarkable appearing duodenum. Unprepared small bowel and colon are non-distended with no gross abnormality. The appendix appears unremarkable. A single small diverticulum is seen along the descending colon. No evidence of diverticulitis. No ascites. No free intraperitoneal air is seen. There is no evidence of significant enlargement of the mesenteric or retroperitoneal lymph nodes. The urinary bladder is unremarkable. Small marginally enhancing right ovarian follicle/cyst The pelvic viscera are unremarkable. There is a suspected small nabothian cyst in the uterine cervix. No evidence of pelvic lymphadenopathy. Visualized lung bases are clear. Mild degenerative changes are redemonstrated in the spine. IMPRESSION: 1. No significant or acute abnormality is seen in the CT abdomen and pelvis. 2. In comparison with previous CT, findings remain unchanged. 3. Stable small non-obstructing left renal stone. 4. Small marginally enhancing right ovarian follicle/cyst appearing unchanged. Sonographic correlation would be helpful if indicated. Electronically Signed by: Radha Coppola MD. (01/17/2023 02:59:20 [employer])
--- NOTE | 2023-01-19 07:14 | XRAY ---
CLINICAL HISTORY:pain COMPARISON:01/14/2023. TECHNIQUES:CT scan of the abdomen and pelvis was performed with IV contrast. Coronal and sagittal reconstructive images were also obtained. FINDINGS: The liver is normal in size. No focal or diffuse parenchymal abnormality. The portal vein, intrahepatic biliary radicals and the bile ducts are normal. The gallbladder is surgically removed. No abnormality is seen in the gallbladder fossa. The spleen, pancreas, and adrenal glands are unremarkable. The kidneys are unremarkable. They are normal in size and shape. No hydronephrosis. There is a solitary 0.3 cm calyceal calculus in the left kidney. The stomach appears unremarkable. Unremarkable appearing duodenum. Unprepared small bowel and colon are non-distended with no gross abnormality. The appendix appears unremarkable. A single small diverticulum is seen along the descending colon. No evidence of diverticulitis. No ascites. No free intraperitoneal air is seen. There is no evidence of significant enlargement of the mesenteric or retroperitoneal lymph nodes. The urinary bladder is unremarkable. Small marginally enhancing right ovarian follicle/cyst The pelvic viscera are unremarkable. There is a suspected small nabothian cyst in the uterine cervix. No evidence of pelvic lymphadenopathy. Visualized lung bases are clear. Mild degenerative changes are redemonstrated in the spine. IMPRESSION: 1. No significant or acute abnormality is seen in the CT abdomen and pelvis. 2. In comparison with previous CT, findings remain unchanged. 3. Stable small non-obstructing left renal stone. 4. Small marginally enhancing right ovarian follicle/cyst appearing unchanged. Sonographic correlation would be helpful if indicated. Electronically Signed by: Radha Coppola MD. (01/17/2023 02:59:20 SPEECH PATHOLOG[employer] SUPERVISOR)
== END 2023-01-17 05:02 | disposition home or self-care (01) ==
LOC: ED 01:20
DX: K57.30 Diverticulosis of large intestine without perforation or abscess without bleeding (principal); R10.9 Unspecified abdominal pain; R11.2 Nausea with vomiting, unspecified; E11.42 Type 2 diabetes mellitus with diabetic polyneuropathy; Z79.4 Long term (current) use of insulin; Z79.891 Long term (current) use of opiate analgesic; Z79.899 Other long term (current) drug therapy; Z28.310 Unvaccinated for COVID-19; Z72.0 Tobacco use
CPT/HCPCS: 36415; 74177; 80053; 81001; 81025; 83605; 83690; 84484; 85025; 96360; 96374; 99284; J1170

== ENCOUNTER 2023-01-23 08:55 | Observation (INO) | payer OTHER ==
[2023-01-23] MEDS ORDERED: Zofran 4 MG/2 ML VIAL IV ONE ×2 (09:27→12:14)
[2023-01-23] MEDS ORDERED: Hydromorphone 1 mg/ml Injection IV ONE (09:27)
[2023-01-23] MEDS ORDERED: Sodium Chloride 0.9% 1000 ML 1,000 ML IV SCH (09:30)
--- NOTE | 2023-01-23 09:37 | ERPHSYRPT ---
- History of Present Illness Time Seen by Provider: 01/23/23 09:00 Historian: patient Exam Limitations: no limitations Patient Subjective Stated Complaint: C/O N/V that started last night. States she has generalized pain all over due to inability to keep her routine pain m edications down; vomits them up. Patient denies specific abdominal pain. Triage Nursing Assessment: Patient brought back to ER in W/C. Patient holding emesis bag with yellow liquid in it; vomited in ER waiting room prior to being brought back to ER room. Patient is alert and oriented. No SOB. Patient transferred self from W/C to bed. SAKINA SHI. Physician History: Patient is a 37-year-old female presents to emergency department for evaluation of generalized abdominal pain nausea and vomiting. Symptoms started last night. Patient states she was unable to tolerate her home meds. Patient reportedly has a history of chronic pain is on pain medications.Is likely the patient's pain is amplified as she has not been able to take her home pain medications. No trauma. No fever. Patient's last bowel movement was yesterday. Patient states it was "hard".Symptoms are moderate in intensity. Palpation to the epigastrium worsens pain. Patient was hospitalized approximately 2 to 3 weeks ago for pancreatitis.Physical exam otherwise nonremarkable. at bedside. They voiced no other complaints or concerns at this time. Portions of this note were created with voice recognition technology. There may be grammatical, spelling, punctuation or sound alike errors Timing/Duration: yesterday Activities at Onset: none Quality: aching Abdominal Pain Onset Location: generalized abdomen Pain Radiation: no radiation Severity of Pain-Max: moderate Severity of Pain-Current: mild Modifying Factors: Improves With: palpation (Palpation to the epigastrium worsen symptoms.) Associated Symptoms: nausea, vomiting Previous symptoms: same symptoms as today Allergies/Adverse Reactions: ketorolac [From Toradol] Allergy (Verified 01/23/23 09:07) promethazine [From Phenergan] Allergy (Verified 01/23/23 09:07) tramadol Allergy (Verified 01/23/23 09:07) diphenhydramine [From Benadryl] Adverse Reaction (Verified 01/23/23 09:07) Home Medications: Insulin Detemir [Levemir] 80 units SQ BID 01/11/22 [History] Propranolol HCl [Inderal ] 60 mg PO BID 01/11/22 [History] Hydrocodone/Acetaminophen [Hydrocodone-Acetamin 5-325 mg] 1 tab PO TID PRN PRN MDD 3 01/12/22 [History] PANTOPRAZOLE 40 mg Tablet [Protonix 40MG Tablet] 1 tab PO DAILY 01/12/22 [History] Gabapentin 300 mg PO BID 01/21/22 [History] Pramipexole Di-HCl [Pramipexole Dihydrochloride] 1 mg PO BID 01/21/22 [History] SUMAtriptan succinate [Imitrex 50 mg] 50 mg PO DAILY PRN PRN 01/21/22 [History] Hx Tetanus, Diphtheria Vaccination/Date Given: Yes Hx Influenza Vaccination/Date Given: No Hx Pneumococcal Vaccination/Date Given: No Immunizations Up to Date: Yes Travel Risk - International Travel Have you traveled outside of the country in past 3 weeks: No - Coronavirus Screening Are you exhibiting any of the following symptoms?: No Close contact with a COVID-19 positive Pt in past 14-21 Days: No - Vaccine Status Have you recieved a Covid-19 vaccination: No - Review of Systems Constitutional: No Symptoms, No Fever, No Chills Eyes: No Symptoms Ears, Nose, & Throat: No Symptoms Respiratory: No Symptoms, No Cough, No Dyspnea Cardiac: No Symptoms, No Chest Pain, No Edema, No Syncope Abdominal/Gastrointestinal: No Symptoms, No Abdominal Pain, No Nausea, No Vomiting, No Diarrhea Genitourinary Symptoms: No Symptoms, No Dysuria Musculoskeletal: No Symptoms, No Back Pain, No Neck Pain Skin: No Symptoms, No Rash Neurological: No Symptoms, No Dizziness, No Focal Weakness, No Sensory Changes Psychological: No Symptoms Endocrine: No Symptoms Hematologic/Lymphatic: No Symptoms Immunological/Allergic: No Symptoms All Other Systems: Reviewed and Negative - Past Medical History Pertinent Past Medical History: Yes Neurological History: Migraines, Peripheral Neuropathy ENT History: Other Cardiac History: No Pertinent History Respiratory History: No Pertinent History Endocrine Medical History: Diabetes Type II Musculoskeletal History: No Pertinent History GI Medical History: Gallbladder Disease, Pancreatitis History: No Pertinent History Psycho-Social History: Anxiety, Depression Female Reproductive Disorders: No Pertinent History Other Medical History: carpal tunnel bilaterally. RLS - Past Surgical History Past Surgical History: Yes Neuro Surgical History: No Pertinent History Cardiac: No Pertinent History Respiratory: No Pertinent History Gastrointestinal: Cholecystectomy Genitourinary: No Pertinent History Musculoskeletal: No Pertinent History Female Surgical History: Section, Tubal Ligation Other Surgical History: 2 c sections-2nd had tubal as well - Social History Smoking Status: Current every day smoker How long have you smoked: 20 y.o. Exposure to second hand smoke: No Alcohol Use: None Drug Use: methamphetamines Patient Lives Alone: No Significant Family History: no pertinent family hx - Female History Hx Now: No - Nursing Vital Signs Nursing Vital Signs: Initial Vital Signs Temperature 98.2 F 01/23/23 08:55 Pulse Rate 87 01/23/23 08:55 Respiratory Rate 18 01/23/23 08:55 Blood Pressure 166/103 01/23/23 08:55 O2 Sat by Pulse Oximetry 100 01/23/23 08:55 Pain Scale Pain Intensity 0 - Physical Exam General Appearance: no apparent distress, alert Eye Exam: PERRL/EOMI, eyes nml inspection Ears, Nose, Throat Exam: normal ENT inspection, TMs normal, pharynx normal, moist mucous membranes Neck Exam: normal inspection, non-tender, supple, full range of motion Respiratory Exam: normal breath sounds, lungs clear, airway intact, No respiratory distress Cardiovascular Exam: regular rate/rhythm, normal heart sounds, normal peripheral pulses Gastrointestinal/Abdomen Exam: soft, tenderness (Epigastric tenderness. Overlying soft tissue intact. No signs of trauma.), No mass Back Exam: normal inspection, normal range of motion, No CVA tenderness, No vertebral tenderness Extremity Exam: normal inspection, normal range of motion, pelvis stable Neurologic Exam: alert, oriented x 3, cooperative, normal mood/affect, nml cerebellar function, sensation nml, No motor deficits Skin Exam: normal color, warm, dry SpO2 Interpretation: normal SpO2: 98 O2 Delivery: Room Air - Course Nursing assessment & vital signs reviewed: Yes Ordered Tests: Active Orders 24 hr Category Date Time Status EKG-ER Only STAT Care 01/23/23 09:27 Active IV Insertion STAT Care 01/23/23 09:27 Active ABDOMEN AND PELVIS W CONTRAST [CT] Stat Exams 01/23/23 09:29 Completed ACETAMINOPHEN Stat Lab 01/23/23 09:49 Completed CBC W DIFF Stat Lab 01/23/23 09:49 Completed CMP Stat Lab 01/23/23 09:49 Completed ETHYL ALCOHOL Stat Lab 01/23/23 09:49 Completed HCG QUALITATIVE, URINE Stat Lab 01/23/23 10:14 Completed LIPASE Stat Lab 01/23/23 09:49 Completed Lactic Acid Stat Lab 01/23/23 09:27 Completed SALICYLATE Stat Lab 01/23/23 09:49 Completed TROPONIN Q4H Lab 01/23/23 09:49 Completed TROPONIN Q4H Lab 01/23/23 13:30 Ordered TROPONIN Q4H Lab 01/23/23 17:30 Ordered UA W/RFX UR CULTURE Stat Lab 01/23/23 10:05 Completed Urine Triage Profile Stat Lab 01/23/23 10:05 Completed Transfer Order Routine Transfer 01/23/23 Ordered Medication Summary Generic Name Dose Route Start Last Admin Trade Name Freq PRN Reason Stop Dose Admin Sodium Chloride 1,000 mls @ 100 mls/hr 01/23/23 09:30 01/23/23 12:20 Sodium Chloride 0.9% 1000 Ml IV 02/22/23 09:29 999 mls/hr .Q10H HINA Infusion Discontinued Medications Generic Name Dose Route Start Last Admin Trade Name Freq PRN Reason Stop Dose Admin Hydromorphone HCl 0.5 mg 01/23/23 09:27 01/23/23 09:52 Hydromorphone 1 Mg/1ml Inj IV 01/23/23 09:28 0.5 mg STAT ONE Administration Hydromorphone HCl Confirm 01/23/23 09:51 Hydromorphone 1 Mg/1ml Inj Administered 01/23/23 09:52 Dose 1 mg .ROUTE .STK-MED ONE Ondansetron HCl 4 mg 01/23/23 09:27 01/23/23 09:46 Ondansetron Hcl 4 Mg/2 Ml Vial IV 01/23/23 09:28 4 mg STAT ONE Administration Ondansetron HCl Confirm 01/23/23 09:46 Ondansetron Hcl 4 Mg/2 Ml Vial Administered 01/23/23 09:47 Dose 4 mg .ROUTE .STK-MED ONE Ondansetron HCl 4 mg 01/23/23 12:14 01/23/23 12:16 Ondansetron Hcl 4 Mg/2 Ml Vial IV 01/23/23 12:15 4 mg STAT ONE Administration Ondansetron HCl Confirm 01/23/23 12:16 Ondansetron Hcl 4 Mg/2 Ml Vial Administered 01/23/23 12:17 Dose 4 mg .ROUTE .K-MED ONE Lab/Rad Data: Laboratory Result Diagrams 01/23/23 09:49 01/23/23 09:49 Laboratory Results 01/23/23 01/23/23 01/23/23 Range/Units 10:14 10:05 10:05 WBC (4.0-10.5) x10^3/uL RBC (4.1-5.4) x10^6/uL Hgb (12.0-16.0) g/dL Hct (35-47) % MCV (78-100) fL MCH (26-32) pg MCHC (32-36) g/dL RDW (11.5-14.0) % Plt Count (150-450) x10^3/uL MPV (7.5-11.0) fL Gran % (36.0-66.0) % Immature Gran % (Auto) (0.00-0.4) % Nucleat RBC Rel Count (0.00-0.1) % Eos # (Auto) (0-0.5) x10^3/uL Immature Gran # (Auto) (0.00-0.03) x10^3u/L Absolute Lymphs (auto) (1.0-4.6) x10^3/uL Absolute Monos (auto) (0.0-1.3) x10^3/uL Absolute Nucleated RBC (0.00-0.01) x10^3u/L Lymphocytes % (24.0-44.0) % Monocytes % (0.0-12.0) % Eosinophils % (0.00-5.0) % Basophils % (0.0-0.4) % Absolute Granulocytes (1.4-6.9) x10^3/uL Basophils # (0-0.4) x10^3/uL Sodium (137-145) mmol/L Potassium (3.5-5.1) mmol/L Chloride (98-107) mmol/L Carbon Dioxide (22-30) mmol/L Anion Gap (5-15) MEQ/L BUN (7-17) mg/dL Creatinine (0.52-1.04) mg/dL Estimated GFR ML/MIN Glucose (74-106) mg/dL Lactic Acid (0.4-2.0) Calcium (8.4-10.2) mg/dL Total Bilirubin (0.2-1.3) mg/dL AST (14-36) U/L ALT (0-35) U/L Alkaline Phosphatase (38-126) U/L Troponin I (0.000-0.034) ng/mL Serum Total Protein (6.3-8.2) g/dL Albumin (3.5-5.0) g/dL Lipase (23-300) U/L Urine Color Yellow (Yellow) Urine Appearance Turbid A (Clear) Urine pH >=9.0 A (4.6-8.0) Ur Specific [place] 1.025 (1.005-1.030) Urine Protein 30 (Negative) Urine Glucose (UA) 500 A (Negative) mg/dL Urine Ketones 15 A (Negative) Urine Blood Negative (Negative) Urine Nitrite Negative (Negative) Urine Bilirubin Negative (Negative) Urine Urobilinogen 0.2 (0.2) mg/dL Ur Leukocyte Esterase Negative (Negative) U Hyaline Cast (Auto) NONE SEEN (0-2) /LPF Urine Microscopic RBC 0-2 (0-5) /HPF Urine Microscopic WBC 3-5 (0-5) /HPF Ur Epithelial Cells Rare (None Seen) /HPF Urine Bacteria Few A (None Seen) /HPF Urine Culture Reflexed NO (NO) Urine HCG, Qual NEGATIVE (NEGATIVE) Salicylates (2-20) mg/dL Urine Opiates Level NEGATIVE (NEGATIVE) Ur Methadone NEGATIVE (NEGATIVE) Acetaminophen (10-30) ug/ml Urine Barbiturates NEGATIVE (NEGATIVE) Ur Phencyclidine (PCP) NEGATIVE (NEGATIVE) Urine Amphetamine NEGATIVE (NEGATIVE) U Benzodiazepine Level NEGATIVE (NEGATIVE) Urine Cocaine NEGATIVE (NEGATIVE) Urine Marijuana (THC) NEGATIVE (NEGATIVE) Ethyl Alcohol (0-10) mg/dL 01/23/23 01/23/23 01/23/23 Range/Units 09:49 09:49 09:49 WBC 10.1 (4.0-10.5) x10^3/uL RBC 4.52 (4.1-5.4) x10^6/uL Hgb 13.3 (12.0-16.0) g/dL Hct 40.3 (35-47) % MCV 89.2 (78-100) fL MCH 29.4 (26-32) pg MCHC 33.0 (32-36) g/dL RDW 13.5 (11.5-14.0) % Plt Count 341 (150-450) x10^3/uL MPV 9.4 (7.5-11.0) fL Gran % 79.0 H (36.0-66.0) % Immature Gran % (Auto) 0.3 (0.00-0.4) % Nucleat RBC Rel Count 0.0 (0.00-0.1) % Eos # (Auto) 0.01 (0-0.5) x10^3/uL Immature Gran # (Auto) 0.03 (0.00-0.03) x10^3u/L Absolute Lymphs (auto) 1.46 (1.0-4.6) x10^3/uL Absolute Monos (auto) 0.58 (0.0-1.3) x10^3/uL Absolute Nucleated RBC 0.00 (0.00-0.01) x10^3u/L Lymphocytes % 14.5 L (24.0-44.0) % Monocytes % 5.8 (0.0-12.0) % Eosinophils % 0.1 (0.00-5.0) % Basophils % 0.3 (0.0-0.4) % Absolute Granulocytes 7.95 H (1.4-6.9) x10^3/uL Basophils # 0.03 (0-0.4) x10^3/uL Sodium 138 (137-145) mmol/L Potassium 3.9 (3.5-5.1) mmol/L Chloride 99 (98-107) mmol/L Carbon Dioxide 30 (22-30) mmol/L Anion Gap 12.5 (5-15) MEQ/L BUN 13 (7-17) mg/dL Creatinine 0.63 (0.52-1.04) mg/dL Estimated GFR > 60.0 ML/MIN Glucose 265 H (74-106) mg/dL Lactic Acid (0.4-2.0) Calcium 9.9 (8.4-10.2) mg/dL Total Bilirubin 0.40 (0.2-1.3) mg/dL AST 35 (14-36) U/L ALT 35 (0-35) U/L Alkaline Phosphatase 71 (38-126) U/L Troponin I < 0.012 (0.000-0.034) ng/mL Serum Total Protein 7.6 (6.3-8.2) g/dL Albumin 4.4 (3.5-5.0) g/dL Lipase 86 (23-300) U/L Urine Color (Yellow) Urine Appearance (Clear) Urine pH (4.6-8.0) Ur Specific [place] (1.005-1.030) Urine Protein (Negative) Urine Glucose (UA) (Negative) mg/dL Urine Ketones (Negative) Urine Blood (Negative) Urine Nitrite (Negative) Urine Bilirubin (Negative) Urine Urobilinogen (0.2) mg/dL Ur Leukocyte Esterase (Negative) U Hyaline Cast (Auto) (0-2) /LPF Urine Microscopic RBC (0-5) /HPF Urine Microscopic WBC (0-5) /HPF Ur Epithelial Cells (None Seen) /HPF Urine Bacteria (None Seen) /HPF Urine Culture Reflexed (NO) Urine HCG, Qual (NEGATIVE) Salicylates < 1.0 L (2-20) mg/dL Urine Opiates Level (NEGATIVE) Ur Methadone (NEGATIVE) Acetaminophen < 10 L (10-30) ug/ml Urine Barbiturates (NEGATIVE) Ur Phencyclidine (PCP) (NEGATIVE) Urine Amphetamine (NEGATIVE) U Benzodiazepine Level (NEGATIVE) Urine Cocaine (NEGATIVE) Urine Marijuana (THC) (NEGATIVE) Ethyl Alcohol < 10 (0-10) mg/dL 01/23/23 Range/Units 09:27 WBC (4.0-10.5) x10^3/uL RBC (4.1-5.4) x10^6/uL Hgb (12.0-16.0) g/dL Hct (35-47) % MCV (78-100) fL MCH (26-32) pg MCHC (32-36) g/dL RDW (11.5-14.0) % Plt Count (150-450) x10^3/uL MPV (7.5-11.0) fL Gran % (36.0-66.0) % Immature Gran % (Auto) (0.00-0.4) % Nucleat RBC Rel Count (0.00-0.1) % Eos # (Auto) (0-0.5) x10^3/uL Immature Gran # (Auto) (0.00-0.03) x10^3u/L Absolute Lymphs (auto) (1.0-4.6) x10^3/uL Absolute Monos (auto) (0.0-1.3) x10^3/uL Absolute Nucleated RBC (0.00-0.01) x10^3u/L Lymphocytes % (24.0-44.0) % Monocytes % (0.0-12.0) % Eosinophils % (0.00-5.0) % Basophils % (0.0-0.4) % Absolute Granulocytes (1.4-6.9) x10^3/uL Basophils # (0-0.4) x10^3/uL Sodium (137-145) mmol/L Potassium (3.5-5.1) mmol/L Chloride (98-107) mmol/L Carbon Dioxide (22-30) mmol/L Anion Gap (5-15) MEQ/L BUN (7-17) mg/dL Creatinine (0.52-1.04) mg/dL Estimated GFR ML/MIN Glucose (74-106) mg/dL Lactic Acid 1.4 (0.4-2.0) Calcium (8.4-10.2) mg/dL Total Bilirubin (0.2-1.3) mg/dL AST (14-36) U/L ALT (0-35) U/L Alkaline Phosphatase (38-126) U/L Troponin I (0.000-0.034) ng/mL Serum Total Protein (6.3-8.2) g/dL Albumin (3.5-5.0) g/dL Lipase (23-300) U/L Urine Color (Yellow) Urine Appearance (Clear) Urine pH (4.6-8.0) Ur Specific [place] (1.005-1.030) Urine Protein (Negative) Urine Glucose (UA) (Negative) mg/dL Urine Ketones (Negative) Urine Blood (Negative) Urine Nitrite (Negative) Urine Bilirubin (Negative) Urine Urobilinogen (0.2) mg/dL Ur Leukocyte Esterase (Negative) U Hyaline Cast (Auto) (0-2) /LPF Urine Microscopic RBC (0-5) /HPF Urine Microscopic WBC (0-5) /HPF Ur Epithelial Cells (None Seen) /HPF Urine Bacteria (None Seen) /HPF Urine Culture Reflexed (NO) Urine HCG, Qual (NEGATIVE) Salicylates (2-20) mg/dL Urine Opiates Level (NEGATIVE) Ur Methadone (NEGATIVE) Acetaminophen (10-30) ug/ml Urine Barbiturates (NEGATIVE) Ur Phencyclidine (PCP) (NEGATIVE) Urine Amphetamine (NEGATIVE) U Benzodiazepine Level (NEGATIVE) Urine Cocaine (NEGATIVE) Urine Marijuana (THC) (NEGATIVE) Ethyl Alcohol (0-10) mg/dL - Progress Progress: improved Progress Note: Patient is a 37-year-old female presents to our ED for evaluation of nausea vomiting epigastric pain. Patient was here recently for similar complaints. Work-up was negative. Work-up today is negative. EKG reveals normal sinus rhythm. CT abdomen pelvis negative for acute pathology. CBC CMP nonremarkable. Patient has a slight hyperglycemia at 246. Toxicology screen negative. Lipase negative. Lactic acid within normal limits. Troponin negative. Urinalysis negative for UTI. Patient received Dilaudid 0.5 mg IV for pain control. Pain resolved. However patient still unable to tolerate p.o. Patient still experiencing nausea. Patient requesting admission. I spoke to [facility] patient's primary care physician at approximately 12:10 PM. He advised admis simona to observation for intractable nausea and vomiting. Case discussed with Dr. Roberts at 12:[address] Roberts accepts admission to observation. Patient agrees to admission to [facility] for further evaluation and treatment. Portions of this note were created with voice recognition technology. There may be grammatical, spelling, punctuation or sound alike errors Complexity of problems addressed is moderate acute complicated No critical care time Complex of data reviewed and analyzed is extensive. Test ordered test reviewed. Results were analyzed and correlated with history and physical examination. Plan of care discussed with patient's primary care provider who advised admission to observation. Case discussed with hospitalist who accepted admission to observation. Risk of complication and or risk of morbidity/mortality of patient management is high. Patient requires hospitalization for further evaluation and treatment. Patient received IV Dilaudid for pain control. Vital stable. Time spent admit patient is approximately 15 minutes. Plan of care established for shared decision making. at bedside. They voiced no other complaints or concerns at this time. Portions of this note were created with voice recognition technology. There may be grammatical, spelling, punctuation or sound alike error 01/23/23 12:46 Counseled pt/family regarding: lab results, diagnosis, rad results - Departure Departure Disposition: Home Clinical Impression: Fatty liver, Nephrolithiasis, Hyperglycemia, Glucosuria Condition: Stable Critical Care Time: No Additional Instructions: Discharge/Care Plan VASQUEZ AUSTIN was seen on 01/23/23 in the Emergency Room. The patient was counseled regarding Diagnosis,Lab results, Imaging studies, need for follow up and when to return to the Emergency Room. Prescriptions given: Discharge Note I have spoken with the patient and/or caregivers. I have explained the patient's condition, diagnosis and treatment plan based on the information available to me at this time. I have answered the patient's and/or caregiver's questions and addressed any concerns. The patient and/or caregivers have as good understanding of the patient's diagnosis, condition and treatment plan as can be expected at this point. The vital signs have been stable. The patient's condition is stable and appropriate for discharge from the emergency department. The patient will pursue further outpatient evaluation with the primary care physician or other designated or consulting physician as outlined in the discharge instructions. The patient and/or caregivers are agreeable to this plan of care and follow-up instructions have been explained in detail. The patient and/or caregivers have received these instruction. The patient/and or caregivers are aware that any significant change in condition or worsening of symptoms should prompt an immediate return to this or the closest emergency department or call 911.
[2023-01-23] MEDS ORDERED: Sodium Chloride 0.9% 1000 ML 1,000 ML ONE (09:46)
[2023-01-23] MEDS ORDERED: Zofran 4 MG/2 ML VIAL ONE ×2 (09:46→12:16)
[2023-01-23] MEDS ORDERED: Hydromorphone 1 mg/ml Injection ONE (09:51)
[2023-01-23 09:58] LABS: Absolute Neutrophil Ct (ANC) 7.95 x10^3/uL (1.4-6.9); BASOPHIL % 0.3 % (0.0-0.4); Basophil (Absolute #) 0.03 x10^3/uL (0-0.4); Eosinophil % 0.1 % (0.00-5.0); Eosinophil (Absolute #) 0.01 x10^3/uL (0-0.5); Hematocrit 40.3 % (35-47); Hemoglobin 13.3 g/dL (12.0-16.0); IMMATURE GRAN # 0.03 x10^3u/L (0.00-0.03); IMMATURE GRAN % 0.3 % (0.00-0.4); Lymphocyte (Absolute #) 1.46 x10^3/uL (1.0-4.6); Lymphocytes % 14.5 % (24.0-44.0); Mean Cell Volume 89.2 fL (78-100); Mean Corpuscular Hemoglobin 29.4 pg (26-32); Mean Platelet Volume 9.4 fL (7.5-11.0); Monocyte (Absolute #) 0.58 x10^3/uL (0.0-1.3); Monocytes % 5.8 % (0.0-12.0); Platelet Count 341 x10^3/uL (150-450); Red Blood Count 4.52 x10^6/uL (4.1-5.4); Red Cell Distribution Width 13.5 % (11.5-14.0); White Blood Count 10.1 x10^3/uL (4.0-10.5)
[2023-01-23 10:17] LABS: ACETAMINOPHEN < 10 ug/ml (10-30); ALBUMIN 4.4 g/dL (3.5-5.0); ALKALINE PHOSPHATASE 71 U/L (38-126); ANION GAP 12.5 MEQ/L (5-15); BLOOD UREA NITROGEN 13 mg/dL (7-17); CHLORIDE 99 mmol/L (98-107); Calcium 9.9 mg/dL (8.4-10.2); Carbon Dioxide 30 mmol/L (22-30); Creatinine 1 0.63 mg/dL (0.52-1.04); EST GLOMERULAR FILTRATION RATE > 60.0 ML/MIN; ETHYL ALCOHOL < 10 mg/dL (0-10); Glucose 265 mg/dL (74-106); LIPASE 86 U/L (23-300); Potassium 3.9 mmol/L (3.5-5.1); SALICYLATE < 1.0 mg/dL (2-20); SGOT/AST 35 U/L (14-36); SGPT/ALT 35 U/L (0-35); SODIUM 138 mmol/L (137-145); Total Protein 7.6 g/dL (6.3-8.2)
[2023-01-23 10:20] LABS: HCG URINE TEST NEGATIVE (NEGATIVE)
[2023-01-23 10:25] LABS: Appearance Turbid (Clear); Bacteria Few /HPF (None Seen); Bilirubin Negative (Negative); Blood Negative (Negative); Epithelial Cells Rare /HPF (None Seen); Glucose, Urine 500 mg/dL (Negative); Hyaline Casts NONE SEEN /LPF (0-2); Ketones 15 (Negative); Leukocyte Esterase Negative (Negative); Nitrite Negative (Negative); Ph >=9.0 (4.6-8.0); Protein,Urine Dip 30 (Negative); RBC 0-2 /HPF (0-5); Specific Gravity 1.025 (1.005-1.030); Urobilinogen 0.2 mg/dL (0.2)
[2023-01-23 10:35] LABS: ADD URINE CULTURE? NO (NO); Amphetamine,Urine NEGATIVE (NEGATIVE); Barbiturate,Urine NEGATIVE (NEGATIVE); Benzodiazepine,Urine NEGATIVE (NEGATIVE); Cocaine,Urine NEGATIVE (NEGATIVE); Methadone,Urine NEGATIVE (NEGATIVE); Opiate,Urine NEGATIVE (NEGATIVE); PCP,Urine NEGATIVE (NEGATIVE); THC,Urine NEGATIVE (NEGATIVE)
--- NOTE | 2023-01-23 12:07 | XRAY ---
Indication: Pain and vomiting. Multiple contiguous axial images obtained through the abdomen and pelvis using 80 cc Isovue 370 contrast. Comparison: CT abdomen/pelvis with contrast exams dated October 27, January 14, and January 17, 2023. Lung bases demonstrates minimal dependent atelectasis without infiltrate or effusion. Heart not enlarged. Noncontrasted stomach and bowel loops are nonobstructed with normal appendix. Stable mild fatty liver, nonobstructing left renal punctate calculus, and cholecystectomy. No free fluid/air. Remaining liver, pancreas, spleen, adrenal glands, kidneys, ureters, bladder, uterus, and aorta are unremarkable. No pathologic retroperitoneal lymphadenopathy. Impression: No change compared to the recent ER CT abdomen/pelvis with contrast exams. Again mild fatty liver and nonobstructing left renal punctate calculus. No new/acute findings.
[2023-01-23] MEDS ORDERED: Compazine 10 MG/2 ML IM PRN (14:54)
[2023-01-23] MEDS ORDERED: Zofran 4 MG/2 ML VIAL IV PRN (14:55)
[2023-01-23] MEDS ORDERED: NON-FORMULARY ITEM (Sumatriptan Succinate [Imitrex 50 Mg] 50 MG Tablet) PO PRN (14:55)
--- NOTE | 2023-01-23 14:58 | PCM.HP ---
History of Present Illness - Chief Complaint Chief Complaint: n/v Date: 01/23/23 History of Present Illness: is a 37 year old female with PMHX of migraines, peripheral neuropathy, type II DM, pancreatitis, anxiety, depression. She came in to ER today with N/V. and abd. pain. Sxs started last night. She has been unable to take her home meds. CT abd showed no new findings. Lipase is not elevated. She does not recall eating anything that made her sick. She reports having zofran at home but unable to keep it down and it is not the ODT type. Will add compazine and make sure to add ODT on DC. She does not have a GI MD. Will make appointment for OP F/U as she has been to several hospitals this year for the same sxs. She denies CP, SOB, diarrhea. - Review of Systems Constitutional: No Fever, No Chills Eyes: No Symptoms Ears, Nose, & Throat: No Symptoms Respiratory: No Cough, No Short Of Breath Cardiac: No Chest Pain, No Edema, No Syncope Abdominal/Gastrointestinal: Abdominal Pain, Nausea, Vomiting, No Diarrhea Genitourinary Symptoms: No Dysuria Musculoskeletal: No Back Pain, No Neck Pain Skin: No Rash Neurological: No Dizziness, No Focal Weakness, No Sensory Changes Psychological: No Symptoms Endocrine: No Symptoms Hematologic/Lymphatic: No Symptoms Immunological/Allergic: No Symptoms Medications & Allergies Home Medications: Home Medication List Ondansetron ODT 4 MG [Zofran Odt 4 mg] 4 mg PO Q6H PRN PRN #10 tablet 09/04/21 [Rx Confirmed 01/23/23] Insulin Detemir [Levemir] 80 units SQ BID 01/11/22 [History Confirmed 01/23/23] Propranolol HCl [Inderal ] 60 mg PO BID 01/11/22 [History Confirmed 01/23/23] Hydrocodone/Acetaminophen [Hydrocodone-Acetamin 5-325 mg] 1 tab PO TID PRN PRN MDD 3 01/12/22 [History Confirmed 01/23/23] PANTOPRAZOLE 40 mg Tablet [Protonix 40MG Tablet] 1 tab PO DAILY 01/12/22 [History Confirmed 01/23/23] Gabapentin 300 mg PO BID 01/21/22 [History Confirmed 01/23/23] Pramipexole Di-HCl [Pramipexole Dihydrochloride] 1 mg PO BID 01/21/22 [History Confirmed 01/23/23] SUMAtriptan succinate [Imitrex 50 mg] 50 mg PO DAILY PRN PRN 01/21/22 [History Confirmed 01/23/23] Blood Sugar Diagnostic [Accu-Chek Guide Test Strip] 1 each MC ACHS #30 strip 01/15/23 [Rx Confirmed 01/23/23] Lancets [Accu-Chek Safe-T-Pro Plus] 1 each MC ACHS #100 stick 01/15/23 [Rx Confirmed 01/23/23] Allergies/Adverse Reactions: Allergies Allergy/AdvReac Type Severity Reaction Status Date / Time ketorolac [From Toradol] Allergy Verified 01/23/23 09:07 promethazine [From Phenergan] Allergy Verified 01/23/23 09:07 tramadol Allergy Verified 01/23/23 09:07 diphenhydramine AdvReac Verified 01/23/23 09:07 [From Benadryl] - Past Medical History Past Medical History: Yes Neurological History: Migraines, Peripheral Neuropathy ENT History: Other Cardiac History: No Pertinent History Respiratory History: No Pertinent History Endocrine Medical History: Diabetes Type II Musculoskelatal History: No Pertinent History GI Medical History: Gallbladder Disease, Pancreatitis History: No Pertinent History Pyscho-Social History: Anxiety, Depression Reproductive Disorders: No Pertinent History Comment: carpal tunnel bilaterally. RLS - Female History Are you now?: No - Past Surgical History Past Surgical History: Yes Neuro Surgical History: No Pertinent History Cardiac History: No Pertinent History Respiratory Surgery: No Pertinent History GI Surgical History: Cholecystectomy Genitourinary Surgical Hx: No Pertinent History Musculskeletal Surgical Hx: No Pertinent History Female Surgical History: Section, Tubal Ligation Other Surgical History: 2 c sections-2nd had tubal as well - Social History Smoking Status: Current every day smoker How long have you smoked: 21 yrs Exposure to second hand smoke: No Alcohol: None Drug Use: methamphetamines Significant Family History: no pertinent family hx - Physical Exam Vital Signs: Vital Signs - 24 hr Temp Pulse Resp BP BP Pulse Ox 01/23/23 13:20 97.2 F 82 18 156/76 95 01/23/23 13:15 97.7 F 82 18 156/76 95 01/23/23 13:00 146/88 01/23/23 12:54 98 01/23/23 12:30 85 16 144/91 97 01/23/23 12:00 93 H 17 132/82 94 L 01/23/23 11:30 90 17 133/70 96 01/23/23 11:28 91 H 24 114/69 98 01/23/23 10:30 89 18 135/84 92 L 01/23/23 10:00 89 15 163/102 94 L 01/23/23 09:30 83 22 150/110 98 01/23/23 09:05 85 22 166/103 98 01/23/23 08:55 98.2 F 87 18 166/103 100 General Appearance: no apparent distress, alert Neurologic Exam: alert, oriented x 3, cooperative, normal mood/affect, nml cerebellar function, nml station & gait, sensation nml, No motor deficits Eye Exam: PERRL/EOMI, eyes nml inspection Ears, Nose, Throat Exam: normal ENT inspection, TMs normal, pharynx normal, moist mucous membranes Neck Exam: normal inspection, non-tender, supple, full range of motion Respiratory Exam: normal breath sounds, lungs clear, No respiratory distress Cardiovascular Exam: regular rate/rhythm, normal heart sounds, normal peripheral pulses Gastrointestinal/Abdomen Exam: soft, normal bowel sounds, tenderness (generalized), No mass Back Exam: normal inspection, normal range of motion, No CVA tenderness, No vertebral tenderness Extremity Exam: normal inspection, normal range of motion, pelvis stable Skin Exam: normal color, warm, dry, No rash Lymphatic Exam: No adenopathy Results - Labs Lab/Micro Results: Lab Results-Last 24 Hours 01/23/23 01/23/23 01/23/23 Range/Units 09:27 09:49 09:49 WBC 10.1 (4.0-10.5) x10^3/uL RBC 4.52 (4.1-5.4) x10^6/uL Hgb 13.3 (12.0-16.0) g/dL Hct 40.3 (35-47) % MCV 89.2 (78-100) fL MCH 29.4 (26-32) pg MCHC 33.0 (32-36) g/dL RDW 13.5 (11.5-14.0) % Plt Count 341 (150-450) x10^3/uL MPV 9.4 (7.5-11.0) fL Gran % 79.0 H (36.0-66.0) % Immature Gran % (Auto) 0.3 (0.00-0.4) % Nucleat RBC Rel Count 0.0 (0.00-0.1) % Eos # (Auto) 0.01 (0-0.5) x10^3/uL Immature Gran # (Auto) 0.03 (0.00-0.03) x10^3u/L Absolute Lymphs (auto) 1.46 (1.0-4.6) x10^3/uL Absolute Monos (auto) 0.58 (0.0-1.3) x10^3/uL Absolute Nucleated RBC 0.00 (0.00-0.01) x10^3u/L Lymphocytes % 14.5 L (24.0-44.0) % Monocytes % 5.8 (0.0-12.0) % Eosinophils % 0.1 (0.00-5.0) % Basophils % 0.3 (0.0-0.4) % Absolute Granulocytes 7.95 H (1.4-6.9) x10^3/uL Basophils # 0.03 (0-0.4) x10^3/uL Sodium 138 (137-145) mmol/L Potassium 3.9 (3.5-5.1) mmol/L Chloride 99 (98-107) mmol/L Carbon Dioxide 30 (22-30) mmol/L Anion Gap 12.5 (5-15) MEQ/L BUN 13 (7-17) mg/dL Creatinine 0.63 (0.52-1.04) mg/dL Estimated GFR > 60.0 ML/MIN Glucose 265 H (74-106) mg/dL Lactic Acid 1.4 (0.4-2.0) Calcium 9.9 (8.4-10.2) mg/dL Total Bilirubin 0.40 (0.2-1.3) mg/dL AST 35 (14-36) U/L ALT 35 (0-35) U/L Alkaline Phosphatase 71 (38-126) U/L Troponin I (0.000-0.034) ng/mL Serum Total Protein 7.6 (6.3-8.2) g/dL Albumin 4.4 (3.5-5.0) g/dL Lipase 86 (23-300) U/L Urine Color (Yellow) Urine Appearance (Clear) Urine pH (4.6-8.0) Ur Specific [place] (1.005-1.030) Urine Protein (Negative) Urine Glucose (UA) (Negative) mg/dL Urine Ketones (Negative) Urine Blood (Negative) Urine Nitrite (Negative) Urine Bilirubin (Negative) Urine Urobilinogen (0.2) mg/dL Ur Leukocyte Esterase (Negative) U Hyaline Cast (Auto) (0-2) /LPF Urine Microscopic RBC (0-5) /HPF Urine Microscopic WBC (0-5) /HPF Ur Epithelial Cells (None Seen) /HPF Urine Bacteria (None Seen) /HPF Urine Culture Reflexed (NO) Urine HCG, Qual (NEGATIVE) Salicylates < 1.0 L (2-20) mg/dL Urine Opiates Level (NEGATIVE) Ur Methadone (NEGATIVE) Acetaminophen < 10 L (10-30) ug/ml Urine Barbiturates (NEGATIVE) Ur Phencyclidine (PCP) (NEGATIVE) Urine Amphetamine (NEGATIVE) U Benzodiazepine Level (NEGATIVE) Urine Cocaine (NEGATIVE) Urine Marijuana (THC) (NEGATIVE) Ethyl Alcohol < 10 (0-10) mg/dL 01/23/23 01/23/23 01/23/23 Range/Units 09:49 10:05 10:05 WBC (4.0-10.5) x10^3/uL RBC (4.1-5.4) x10^6/uL Hgb (12.0-16.0) g/dL Hct (35-47) % MCV (78-100) fL MCH (26-32) pg MCHC (32-36) g/dL RDW (11.5-14.0) % Plt Count (150-450) x10^3/uL MPV (7.5-11.0) fL Gran % (36.0-66.0) % Immature Gran % (Auto) (0.00-0.4) % Nucleat RBC Rel Count (0.00-0.1) % Eos # (Auto) (0-0.5) x10^3/uL Immature Gran # (Auto) (0.00-0.03) x10^3u/L Absolute Lymphs (auto) (1.0-4.6) x10^3/uL Absolute Monos (auto) (0.0-1.3) x10^3/uL Absolute Nucleated RBC (0.00-0.01) x10^3u/L Lymphocytes % (24.0-44.0) % Monocytes % (0.0-12.0) % Eosinophils % (0.00-5.0) % Basophils % (0.0-0.4) % Absolute Granulocytes (1.4-6.9) x10^3/uL Basophils # (0-0.4) x10^3/uL Sodium (137-145) mmol/L Potassium (3.5-5.1) mmol/L Chloride (98-107) mmol/L Carbon Dioxide (22-30) mmol/L Anion Gap (5-15) MEQ/L BUN (7-17) mg/dL Creatinine (0.52-1.04) mg/dL Estimated GFR ML/MIN Glucose (74-106) mg/dL Lactic Acid (0.4-2.0) Calcium (8.4-10.2) mg/dL Total Bilirubin (0.2-1.3) mg/dL AST (14-36) U/L ALT (0-35) U/L Alkaline Phosphatase (38-126) U/L Troponin I < 0.012 (0.000-0.034) ng/mL Serum Total Protein (6.3-8.2) g/dL Albumin (3.5-5.0) g/dL Lipase (23-300) U/L Urine Color Yellow (Yellow) Urine Appearance Turbid A (Clear) Urine pH >=9.0 A (4.6-8.0) Ur Specific [place] 1.025 (1.005-1.030) Urine Protein 30 (Negative) Urine Glucose (UA) 500 A (Negative) mg/dL Urine Ketones 15 A (Negative) Urine Blood Negative (Negative) Urine Nitrite Negative (Negative) Urine Bilirubin Negative (Negative) Urine Urobilinogen 0.2 (0.2) mg/dL Ur Leukocyte Esterase Negative (Negative) U Hyaline Cast (Auto) NONE SEEN (0-2) /LPF Urine Microscopic RBC 0-2 (0-5) /HPF Urine Microscopic WBC 3-5 (0-5) /HPF Ur Epithelial Cells Rare (None Seen) /HPF Urine Bacteria Few A (None Seen) /HPF Urine Culture Reflexed NO (NO) Urine HCG, Qual (NEGATIVE) Salicylates (2-20) mg/dL Urine Opiates Level NEGATIVE (NEGATIVE) Ur Methadone NEGATIVE (NEGATIVE) Acetaminophen (10-30) ug/ml Urine Barbiturates NEGATIVE (NEGATIVE) Ur Phencyclidine (PCP) NEGATIVE (NEGATIVE) Urine Amphetamine NEGATIVE (NEGATIVE) U Benzodiazepine Level NEGATIVE (NEGATIVE) Urine Cocaine NEGATIVE (NEGATIVE) Urine Marijuana (THC) NEGATIVE (NEGATIVE) Ethyl Alcohol (0-10) mg/dL 01/23/23 01/23/23 Range/Units 10:14 13:40 WBC (4.0-10.5) x10^3/uL RBC (4.1-5.4) x10^6/uL Hgb (12.0-16.0) g/dL Hct (35-47) % MCV (78-100) fL MCH (26-32) pg MCHC (32-36) g/dL RDW (11.5-14.0) % Plt Count (150-450) x10^3/uL MPV (7.5-11.0) fL Gran % (36.0-66.0) % Immature Gran % (Auto) (0.00-0.4) % Nucleat RBC Rel Count (0.00-0.1) % Eos # (Auto) (0-0.5) x10^3/uL Immature Gran # (Auto) (0.00-0.03) x10^3u/L Absolute Lymphs (auto) (1.0-4.6) x10^3/uL Absolute Monos (auto) (0.0-1.3) x10^3/uL Absolute Nucleated RBC (0.00-0.01) x10^3u/L Lymphocytes % (24.0-44.0) % Monocytes % (0.0-12.0) % Eosinophils % (0.00-5.0) % Basophils % (0.0-0.4) % Absolute Granulocytes (1.4-6.9) x10^3/uL Basophils # (0-0.4) x10^3/uL Sodium (137-145) mmol/L Potassium (3.5-5.1) mmol/L Chloride (98-107) mmol/L Carbon Dioxide (22-30) mmol/L Anion Gap (5-15) MEQ/L BUN (7-17) mg/dL Creatinine (0.52-1.04) mg/dL Estimated GFR ML/MIN Glucose (74-106) mg/dL Lactic Acid (0.4-2.0) Calcium (8.4-10.2) mg/dL Total Bilirubin (0.2-1.3) mg/dL AST (14-36) U/L ALT (0-35) U/L Alkaline Phosphatase (38-126) U/L Troponin I < 0.012 (0.000-0.034) ng/mL Serum Total Protein (6.3-8.2) g/dL Albumin (3.5-5.0) g/dL Lipase (23-300) U/L Urine Color (Yellow) Urine Appearance (Clear) Urine pH (4.6-8.0) Ur Specific [place] (1.005-1.030) Urine Protein (Negative) Urine Glucose (UA) (Negative) mg/dL Urine Ketones (Negative) Urine Blood (Negative) Urine Nitrite (Negative) Urine Bilirubin (Negative) Urine Urobilinogen (0.2) mg/dL Ur Leukocyte Esterase (Negative) U Hyaline Cast (Auto) (0-2) /LPF Urine Microscopic RBC (0-5) /HPF Urine Microscopic WBC (0-5) /HPF Ur Epithelial Cells (None Seen) /HPF Urine Bacteria (None Seen) /HPF Urine Culture Reflexed (NO) Urine HCG, Qual NEGATIVE (NEGATIVE) Salicylates (2-20) mg/dL Urine Opiates Level (NEGATIVE) Ur Methadone (NEGATIVE) Acetaminophen (10-30) ug/ml Urine Barbiturates (NEGATIVE) Ur Phencyclidine (PCP) (NEGATIVE) Urine Amphetamine (NEGATIVE) U Benzodiazepine Level (NEGATIVE) Urine Cocaine (NEGATIVE) Urine Marijuana (THC) (NEGATIVE) Ethyl Alcohol (0-10) mg/dL - Radiology Impressions Radiology Exams & Impressions: Radiology Procedures Category Date Time Status ABDOMEN AND PELVIS W CONTRAST [CT] Stat Exams 01/23/23 09:29 Completed Assessment/Plan (1) Nausea & vomiting Current Visit: No Status: Acute Assessment & Plan: - Protonix, - zofran, compazine PRN - GI f/u at dc - Will need Zofran ODT at DC Code(s): R11.2 - NAUSEA WITH VOMITING, UNSPECIFIED (2) Abdominal pain Current Visit: No Status: Acute Assessment & Plan: - CT abd 01/23 No change compared to the recent ER CT abdomen/pelvis with contrast exams. Again mild fatty liver and nonobstructing left renal punctate calculus. No new/acute findings. - will need to f/u with GI OP- will make appointment Code(s): R10.9 - UNSPECIFIED ABDOMINAL PAIN (3) Nicotine dependence Current Visit: No Status: Acute Assessment & Plan: - Advised cessation - nicotine patch Code(s): F17.200 - NICOTINE DEPENDENCE, UNSPECIFIED, UNCOMPLICATED (4) Type 2 diabetes mellitus Current Visit: No Status: Chronic Qualifiers: Assessment & Plan: - humalog s/s VTE: lovenox PPI: protonix D/C plan: 1-2 days Code status: full Next of Kin:
[2023-01-23] MEDS ORDERED: HUMALOG SQ PRN (15:01)
[2023-01-23] MEDS ORDERED: Tums EX 750 MG PO PRN (15:36)
[2023-01-23] MEDS ORDERED: MEDICATION INTERVENTION MC SCH (15:45)
[2023-01-23] MEDS ORDERED: Compazine 10 MG/2 ML IV PRN (15:49)
[2023-01-23] MEDS: Nicoderm CQ 21 MG TOP SCH (15:54)
[2023-01-23] MEDS ORDERED: ENOXAPARIN SODIUM SQ SCH (16:00)
[2023-01-23] MEDS: NORCO 5/325 MG PO PRN (16:03)
[2023-01-23] MEDS: NEURONTIN PO SCH (22:50)
[2023-01-23] MEDS: Lantus Insulin SQ SCH (22:50)
[2023-01-23] MEDS: Mirapex 0.5 MG Tablet PO SCH (22:52)
[2023-01-23] MEDS: Inderal PO SCH (22:52)
[2023-01-24] MEDS: NORCO 5/325 MG PO PRN ×2 (00:10→09:21)
[2023-01-24 05:27] LABS: Hematocrit 38.7 % (35-47); Hemoglobin 12.4 g/dL (12.0-16.0); Mean Cell Volume 90.8 fL (78-100); Mean Corpuscular Hemoglobin 29.1 pg (26-32); Platelet Count 340 x10^3/uL (150-450); Red Blood Count 4.26 x10^6/uL (4.1-5.4); Red Cell Distribution Width 13.5 % (11.5-14.0)
[2023-01-24 06:03] LABS: ALBUMIN 3.8 g/dL (3.5-5.0); ALKALINE PHOSPHATASE 61 U/L (38-126); ANION GAP 10.6 MEQ/L (5-15); BLOOD UREA NITROGEN 13 mg/dL (7-17); CHLORIDE 101 mmol/L (98-107); Calcium 8.4 mg/dL (8.4-10.2); Carbon Dioxide 28 mmol/L (22-30); Creatinine 1 0.72 mg/dL (0.52-1.04); EST GLOMERULAR FILTRATION RATE > 60.0 ML/MIN; Glucose 124 mg/dL (74-106); SGOT/AST 35 U/L (14-36); SGPT/ALT 32 U/L (0-35); SODIUM 136 mmol/L (137-145); Total Protein 6.8 g/dL (6.3-8.2)
[2023-01-24] MEDS ORDERED: Klor Con PO ONE ×2 (06:35→11:43)
[2023-01-24 08:28] VITALS: TEMP 97.1
[2023-01-24] MEDS: Mirapex 0.5 MG Tablet PO SCH (09:21)
[2023-01-24] MEDS: NEURONTIN PO SCH (09:21)
[2023-01-24] MEDS: Inderal PO SCH ×2 (09:21→09:29)
[2023-01-24] MEDS: Nicoderm CQ 21 MG TOP SCH (09:22)
[2023-01-24] MEDS: ENOXAPARIN SODIUM SQ SCH ×2 (09:22→09:29)
[2023-01-24] MEDS: Lantus Insulin SQ SCH (09:23)
[2023-01-24] MEDS ORDERED: Protonix 40MG Tablet PO SCH (10:00)
[2023-01-24 11:28] LABS: ANION GAP 9.4 MEQ/L (5-15); Potassium 3.3 mmol/L (3.5-5.1)
--- NOTE | 2023-01-24 11:49 | PCM.DS ---
Discharge Summary Date of Admission: 01/23/23 13:11 Date of Discharge: 01/24/23 Admitting Physician: RYAN VILLAR MD Primary Care Provider: LUZ MARIA,AMEE Allergies Allergies ketorolac [From Toradol] Allergy (Verified 01/23/23 09:07) promethazine [From Phenergan] Allergy (Verified 01/23/23 09:07) tramadol Allergy (Verified 01/23/23 09:07) diphenhydramine [From Benadryl] Adverse Reaction (Verified 01/23/23 09:07) Hospital Summary - Hospital Course Hospital Course: 01/23/23 is a 37 year old female with PMHX of migraines, peripheral neuropathy, type II DM, pancreatitis, anxiety, depression. She came in to ER today with N/V. and abd. pain. Sxs started last night. She has been unable to take her home meds. CT abd showed no new findings. Lipase is not elevated. She does not recall eating anything that made her sick. She reports having zofran at home but unable to keep it down and it is not the ODT type. Will add compazine and make sure to add ODT on DC. She does not have a GI MD. Will make appointment for OP F/U as she has been to several hospitals this year for the same sxs. She denies CP, SOB, diarrhea. 01/24/23 Pt resting in bed. She reports she has not vomited since receiving compazine yesterday. Will advance her diet and if tolerated will d/c. She is feeling better today but has some abd. cramping and feels this is related to her menstral cycle which started last night. She is asking to go home. Urged pt to f/u with GI as an appointment has been made. Potassium remains low and will d/c with oral potassium. She denies any further c/o at this time. - Vitals & Intake/Output Vital Signs: Vital Signs Temperature 97.1 F 01/24/23 08:00 Pulse Rate 71 01/24/23 08:00 Respiratory Rate 20 01/24/23 08:00 Blood Pressure 90/56 01/24/23 08:00 O2 Sat by Pulse Oximetry 96 01/24/23 08:00 Intake & Output: Intake & Output 10/2201/22/23 01/23/23 01/24/23 11:59 11:59 11:59 11:59 Intake Total 860 Balance 860 Weight 80 kg 78.925 kg - Lab Result Diagrams: 01/24/23 04:52 01/24/23 11:10 Lab Results-Last 24 Hrs: Lab Results-Last 24 Hours 01/23/23 01/23/23 01/23/23 Range/Units 13:40 16:26 17:40 WBC (4.0-10.5) x10^3/uL RBC (4.1-5.4) x10^6/uL Hgb (12.0-16.0) g/dL Hct (35-47) % MCV (78-100) fL MCH (26-32) pg MCHC (32-36) g/dL RDW (11.5-14.0) % Plt Count (150-450) x10^3/uL MPV (7.5-11.0) fL Sodium (137-145) mmol/L Potassium (3.5-5.1) mmol/L Chloride (98-107) mmol/L Carbon Dioxide (22-30) mmol/L Anion Gap (5-15) MEQ/L BUN (7-17) mg/dL Creatinine (0.52-1.04) mg/dL Estimated GFR ML/MIN Glucose (74-106) mg/dL POC Glucometer 146 H (74 to 106) mg/dL Calcium (8.4-10.2) mg/dL Magnesium (1.6-2.3) mg/dL Total Bilirubin (0.2-1.3) mg/dL AST (14-36) U/L ALT (0-35) U/L Alkaline Phosphatase (38-126) U/L Troponin I < 0.012 < 0.012 (0.000-0.034) ng/mL Serum Total Protein (6.3-8.2) g/dL Albumin (3.5-5.0) g/dL 01/23/23 01/24/23 01/24/23 Range/Units 21:48 04:52 04:52 WBC 13.0 H (4.0-10.5) x10^3/uL RBC 4.26 (4.1-5.4) x10^6/uL Hgb 12.4 (12.0-16.0) g/dL Hct 38.7 (35-47) % MCV 90.8 (78-100) fL MCH 29.1 (26-32) pg MCHC 32.0 (32-36) g/dL RDW 13.5 (11.5-14.0) % Plt Count 340 (150-450) x10^3/uL MPV 9.0 (7.5-11.0) fL Sodium 136 L (137-145) mmol/L Potassium 3.0 L* D (3.5-5.1) mmol/L Chloride 101 (98-107) mmol/L Carbon Dioxide 28 (22-30) mmol/L Anion Gap 10.6 (5-15) MEQ/L BUN 13 (7-17) mg/dL Creatinine 0.72 (0.52-1.04) mg/dL Estimated GFR > 60.0 ML/MIN Glucose 124 H (74-106) mg/dL POC Glucometer 118 H (74 to 106) mg/dL Calcium 8.4 D (8.4-10.2) mg/dL Magnesium (1.6-2.3) mg/dL Total Bilirubin 0.40 (0.2-1.3) mg/dL AST 35 (14-36) U/L ALT 32 (0-35) U/L Alkaline Phosphatase 61 (38-126) U/L Troponin I (0.000-0.034) ng/mL Serum Total Protein 6.8 (6.3-8.2) g/dL Albumin 3.8 (3.5-5.0) g/dL 01/24/23 01/24/23 01/24/23 Range/Units 06:28 07:10 11:10 WBC (4.0-10.5) x10^3/uL RBC (4.1-5.4) x10^6/uL Hgb (12.0-16.0) g/dL Hct (35-47) % MCV (78-100) fL MCH (26-32) pg MCHC (32-36) g/dL RDW (11.5-14.0) % Plt Count (150-450) x10^3/uL MPV (7.5-11.0) fL Sodium 136 L (137-145) mmol/L Potassium 3.3 L (3.5-5.1) mmol/L Chloride 101 (98-107) mmol/L Carbon Dioxide 29 (22-30) mmol/L Anion Gap 9.4 (5-15) MEQ/L BUN (7-17) mg/dL Creatinine (0.52-1.04) mg/dL Estimated GFR ML/MIN Glucose (74-106) mg/dL POC Glucometer 94 (74 to 106) mg/dL Calcium (8.4-10.2) mg/dL Magnesium 2.1 (1.6-2.3) mg/dL Total Bilirubin (0.2-1.3) mg/dL AST (14-36) U/L ALT (0-35) U/L Alkaline Phosphatase (38-126) U/L Troponin I (0.000-0.034) ng/mL Serum Total Protein (6.3-8.2) g/dL Albumin (3.5-5.0) g/dL 01/24/23 Range/Units 11:27 WBC (4.0-10.5) x10^3/uL RBC (4.1-5.4) x10^6/uL Hgb (12.0-16.0) g/dL Hct (35-47) % MCV (78-100) fL MCH (26-32) pg MCHC (32-36) g/dL RDW (11.5-14.0) % Plt Count (150-450) x10^3/uL MPV (7.5-11.0) fL Sodium (137-145) mmol/L Potassium (3.5-5.1) mmol/L Chloride (98-107) mmol/L Carbon Dioxide (22-30) mmol/L Anion Gap (5-15) MEQ/L BUN (7-17) mg/dL Creatinine (0.52-1.04) mg/dL Estimated GFR ML/MIN Glucose (74-106) mg/dL POC Glucometer 99 (74 to 106) mg/dL Calcium (8.4-10.2) mg/dL Magnesium (1.6-2.3) mg/dL Total Bilirubin (0.2-1.3) mg/dL AST (14-36) U/L ALT (0-35) U/L Alkaline Phosphatase (38-126) U/L Troponin I (0.000-0.034) ng/mL Serum Total Protein (6.3-8.2) g/dL Albumin (3.5-5.0) g/dL Micro Results-Entire Visit: Accuchecks Date 01/24/23 Date 01/23/23 Time 08:27 Time 16:36 - Radiology Exams Ordered Rad Exams-Entire Visit: Radiology Procedures Category Date Time Status ABDOMEN AND PELVIS W CONTRAST [CT] Stat Exams 01/23/23 09:29 Completed Discharge Exam General Appearance: no apparent distress, alert Neurologic Exam: alert, oriented x 3, cooperative, normal mood/affect, nml cerebellar function, sensation nml, No motor deficits Eye Exam: PERRL, EOMI, eyes nml inspection Ears, Nose, Throat Exam: normal ENT inspection, pharynx normal, moist mucous membranes Neck Exam: normal inspection, non-tender, supple, full range of motion Respiratory Exam: normal breath sounds, lungs clear, No respiratory distress Cardiovascular Exam: regular rate/rhythm, normal heart sounds Gastrointestinal/Abdomen Exam: soft, No tenderness, No mass Pelvic Exam: deferred Rectal Exam: deferred Back Exam: normal inspection, normal range of motion, No CVA tenderness, No vertebral tenderness Extremity Exam: normal inspection, normal range of motion Skin Exam: normal color, warm, dry Final Diagnosis/Problem List - Final Discharge Diagnosis/Problem (1) Nausea & vomiting Current Visit: No Status: Acute Assessment & Plan: - Protonix, - zofran, compazine PRN - GI f/u at dc - Will need Zofran ODT at DC 01/24 - resolved with compazine- will d/c with this med as well Code(s): R11.2 - NAUSEA WITH VOMITING, UNSPECIFIED (2) Abdominal pain Current Visit: No Status: Acute Assessment & Plan: - CT abd 01/23 No change compared to the recent ER CT abdomen/pelvis with contrast exams. Again mild fatty liver and nonobstructing left renal punctate calculus. No new/acute findings. - will need to f/u with GI OP- will make appointment 01/24 - pt feels may have been r/t menstrual cycle cramping Code(s): R10.9 - UNSPECIFIED ABDOMINAL PAIN (3) Nicotine dependence Current Visit: No Status: Acute Assessment & Plan: - Advised cessation - nicotine patch Code(s): F17.200 - NICOTINE DEPENDENCE, UNSPECIFIED, UNCOMPLICATED (4) Type 2 diabetes mellitus Current Visit: No Status: Chronic Assessment & Plan: - humalog s/s (5) Moderate cramps with menses Current Visit: Yes Status: Acute Assessment & Plan: - Supportive care Code(s): N94.6 - DYSMENORRHEA, UNSPECIFIED (6) Hypokalemia Current Visit: Yes Status: Acute Assessment & Plan: - 01/24/23 Replaced x2 - will d/c home with oral potassium replacement Code(s): E87.6 - HYPOKALEMIA - Discharge Discharge Date: 01/24/23 Disposition: Home, Self-Care Condition: Stable Prescriptions: Continue Ondansetron ODT 4 MG [Zofran Odt 4 mg] 4 mg PO Q6H PRN PRN #10 tablet PRN Reason: Nausea Insulin Detemir [Levemir] 80 units SQ BID Propranolol HCl [Inderal ] 60 mg PO BID Hydrocodone/Acetaminophen [Hydrocodone-Acetamin 5-325 mg] 1 tab PO TID PRN PRN MDD 3 PRN Reason: Pain PANTOPRAZOLE 40 mg Tablet [Protonix 40MG Tablet] 1 tab PO DAILY SUMAtriptan succinate [Imitrex 50 mg] 50 mg PO DAILY PRN PRN PRN Reason: migraine Pramipexole Di-HCl [Pramipexole Dihydrochloride] 1 mg PO BID Gabapentin 300 mg PO BID Blood Sugar Diagnostic [Accu-Chek Guide Test Strip] 1 each ACHS #30 strip Lancets [Accu-Chek Safe-T-Pro Plus] 1 each ACHS #100 stick Additional Instructions: YOU CAN ARRANGE MEDICAID TRANSPORT BY CALLING [phone]. THIS TYPICALLY HAS TO BE SET UP 48 HR IN ADVANCE. A REFERRAL WAS ALSO SENT TO OUR COMMUNITY CARE NURSE TO SEE HOW SHE CAN ASSIST WITH HOUSING- THEY WILL CALL YOU. YOU CAN REACH THEM AT [phone] ext [phone] Follow up with: LUCIA CAMPO [COURTESY STAFF] - (NEEDS A GI CONSULT UPOM DISCHARGE)
[2023-01-24 12:16] VITALS: BP 81/54; PULSE 68; RESP 18; O2SAT 93
--- NOTE | 2023-01-24 14:06 | PCM.DCORD ---
- Discharge Discharge Date: 01/24/23 Disposition: Home, Self-Care Condition: Stable Prescriptions: New Prochlorperazine Maleate 5 mg* [Compazine 5 MG] 5 mg PO QID PRN PRN 3 Days #12 tablet PRN Reason: Nausea/Vomiting Ondansetron ODT 4 MG [Zofran Odt 4 mg] 4 mg PO Q6H PRN PRN #10 tablet PRN Reason: Nausea Potassium Chloride Tab* [Klor Con] 20 meq PO BID 3 Days #12 tablet Continue Ondansetron ODT 4 MG [Zofran Odt 4 mg] 4 mg PO Q6H PRN PRN #10 tablet PRN Reason: Nausea Insulin Detemir [Levemir] 80 units SQ BID Propranolol HCl [Inderal ] 60 mg PO BID Hydrocodone/Acetaminophen [Hydrocodone-Acetamin 5-325 mg] 1 tab PO TID PRN PRN MDD 3 PRN Reason: Pain PANTOPRAZOLE 40 mg Tablet [Protonix 40MG Tablet] 1 tab PO DAILY SUMAtriptan succinate [Imitrex 50 mg] 50 mg PO DAILY PRN PRN PRN Reason: migraine Pramipexole Di-HCl [Pramipexole Dihydrochloride] 1 mg PO BID Gabapentin 300 mg PO BID Blood Sugar Diagnostic [Accu-Chek Guide Test Strip] 1 each ACHS #30 strip Lancets [Accu-Chek Safe-T-Pro Plus] 1 each ACHS #100 stick Instructions: Nausea and Vomiting, Adult (DC) Additional Instructions: YOU CAN ARRANGE MEDICAID TRANSPORT BY CALLING [phone]. THIS TYPICALLY HAS TO BE SET UP 48 HR IN ADVANCE. A REFERRAL WAS ALSO SENT TO OUR COMMUNITY CARE NURSE TO SEE HOW SHE CAN ASSIST WITH HOUSING- THEY WILL CALL YOU. YOU CAN REACH THEM AT [phone] ext [phone] Take the entire course of keflex for chin cellulitis. Follow up with PCP if symptoms do not improve. Follow up with: THIEN CUTLER FNP [NON-STAFF PHY W/O PRIVILEGES] - 05/02/23 2:00 pm (If you would like a sooner appointment, call Dr. [place]'s office periodically to check for sooner appointments.) AMEE LOERA MD [Primary Care Provider] - 02/01/23 9:45 am ([place] [facility]) Forms: Discharge Instructions
== END 2023-01-24 14:34 | disposition home or self-care (01) ==
LOC: ED 08:55 → MED SURG 13:11
PROVIDERS: ADMIT Internal Medicine; ATTEND Internal Medicine
DX: R11.2 Nausea with vomiting, unspecified (principal); R10.84 Generalized abdominal pain; Z79.899 Other long term (current) drug therapy; E11.9 Type 2 diabetes mellitus without complications; F17.200 Nicotine dependence, unspecified, uncomplicated; N94.6 Dysmenorrhea, unspecified; E87.6 Hypokalemia
CPT/HCPCS: 36000; 36415; 74177; 80051; 80053; 80143; 80179; 80307; 81001; 81025; 82077; 82947; 83605; 83690; 83735; 84484; 85025; 85027; 93005; 93268; 96360; 96374; 96375; 96376; 99285; G0378; Q3014; J1170; J1650; J2405; A9270-GY

== ENCOUNTER 2023-01-29 14:53 | Emergency (ER) | payer OTHER ==
--- NOTE | 2023-01-29 15:01 | ERPHSYRPT ---
- History of Present Illness Time Seen by Provider: 01/29/23 15:00 Historian: patient, old records Exam Limitations: no limitations Physician History: This is a 37-year-old white female patient of Dr. Loera who presents to the emergency department with vomiting that has been present intermittently for 2 to 3 weeks. Patient has a history of insulin-dependent diabetes, peripheral neuropathy, migraine headaches, pancreatitis, dystonic movements and gastroesophageal reflux disease. Patient has a history of drug abuse. Patient has had a section, cholecystectomy and bilateral tubal ligation in the past. Most recently, on 01/23/2023, patient was admitted for the same symptoms and discharged the next day on 01/24/2023. Patient has had CAT scans 4 times since the end of September all showing no acute process in the abdomen or pelvis. Patient states that she has abdominal pain 7 out of 10 but does not want any narcotics at this time. She just wants the vomiting to subside. Timing/Duration: week(s), intermittent Activities at Onset: none Quality: aching Abdominal Pain Onset Location: generalized abdomen Pain Radiation: no radiation Severity of Pain-Max: moderate Severity of Pain-Current: moderate Modifying Factors: Improves With: vomiting Associated Symptoms: loss of appetite, nausea, vomiting Previous symptoms: same symptoms as today, recently seen, recent hospitalization, recently treated Allergies/Adverse Reactions: ketorolac [From Toradol] Allergy (Verified 01/29/23 15:09) promethazine [From Phenergan] Allergy (Verified 01/29/23 15:09) tramadol Allergy (Verified 01/29/23 15:09) diphenhydramine [From Benadryl] Adverse Reaction (Verified 01/29/23 15:09) Home Medications: Insulin Detemir [Levemir] 80 units SQ BID 01/11/22 [History] Propranolol HCl [Inderal ] 60 mg PO BID 01/11/22 [History] Hydrocodone/Acetaminophen [Hydrocodone-Acetamin 5-325 mg] 1 tab PO TID PRN PRN MDD 3 01/12/22 [History] Gabapentin 300 mg PO BID 01/21/22 [History] Pramipexole Di-HCl [Pramipexole Dihydrochloride] 1 mg PO BID 01/21/22 [History] SUMAtriptan succinate [Imitrex 50 mg] 50 mg PO DAILY PRN PRN 01/21/22 [History] Hx Tetanus, Diphtheria Vaccination/Date Given: Yes Hx Influenza Vaccination/Date Given: No Hx Pneumococcal Vaccination/Date Given: No Travel Risk - International Travel Have you traveled outside of the country in past 3 weeks: No - Coronavirus Screening Are you exhibiting any of the following symptoms?: Yes Symptoms: Vomiting/Diarrhea Close contact with a COVID-19 positive Pt in past 14-21 Days: No - Vaccine Status Have you recieved a Covid-19 vaccination: No - Review of Systems Constitutional: No Symptoms Eyes: No Symptoms Ears, Nose, & Throat: No Symptoms Respiratory: No Symptoms Cardiac: No Symptoms Abdominal/Gastrointestinal: Abdominal Pain, Nausea, Vomiting, Appetite Changes, No Constipation Genitourinary Symptoms: No Symptoms Musculoskeletal: No Symptoms Skin: No Symptoms Neurological: No Symptoms Psychological: No Symptoms Endocrine: No Symptoms Hematologic/Lymphatic: No Symptoms Immunological/Allergic: No Symptoms All Other Systems: Reviewed and Negative - Past Medical History Pertinent Past Medical History: Yes Neurological History: Migraines, Peripheral Neuropathy ENT History: Other Cardiac History: No Pertinent History Respiratory History: No Pertinent History Endocrine Medical History: Diabetes Type II Musculoskeletal History: No Pertinent History GI Medical History: Gallbladder Disease, Pancreatitis History: No Pertinent History Psycho-Social History: Anxiety, Depression Female Reproductive Disorders: No Pertinent History Other Medical History: carpal tunnel bilaterally. RLS - Past Surgical History Past Surgical History: Yes Neuro Surgical History: No Pertinent History Cardiac: No Pertinent History Respiratory: No Pertinent History Gastrointestinal: Cholecystectomy Genitourinary: No Pertinent History Musculoskeletal: No Pertinent History Female Surgical History: Section, Tubal Ligation Other Surgical History: 2 c sections-2nd had tubal as well - Social History Smoking Status: Current every day smoker How long have you smoked: 21 yrs Exposure to second hand smoke: No Alcohol Use: None Drug Use: methamphetamines Patient Lives Alone: No Significant Family History: no pertinent family hx - Nursing Vital Signs Nursing Vital Signs: Initial Vital Signs Temperature 97.6 F 01/29/23 14:57 Pulse Rate 72 01/29/23 14:57 Respiratory Rate 20 01/29/23 14:57 Blood Pressure 146/82 01/29/23 14:57 O2 Sat by Pulse Oximetry 99 01/29/23 14:57 Pain Scale Pain Intensity 7 - Physical Exam General Appearance: no apparent distress, alert, anxiety Eye Exam: PERRL/EOMI, eyes nml inspection Ears, Nose, Throat Exam: moist mucous membranes, other (edentulous) Neck Exam: normal inspection, non-tender, supple, full range of motion Respiratory Exam: normal breath sounds, lungs clear, airway intact, No chest tenderness, No respiratory distress Cardiovascular Exam: regular rate/rhythm, normal heart sounds, normal peripheral pulses Gastrointestinal/Abdomen Exam: soft, normal bowel sounds, tenderness (Mild), No guarding ( diffuse), No rebound Pelvic Exam: not done Rectal Exam: not done Back Exam: normal inspection, normal range of motion, No CVA tenderness, No vertebral tenderness Extremity Exam: normal inspection, normal range of motion, pelvis stable Neurologic Exam: alert, oriented x 3, cooperative, fruit or nut farmer II-XII nml as tested, normal mood/affect, nml cerebellar function, nml station & gait, sensation nml Skin Exam: normal color, warm, dry Lymphatic Exam: No adenopathy SpO2 Interpretation: normal O2 Delivery: Room Air - Course Nursing assessment & vital signs reviewed: Yes Ordered Tests: Active Orders 24 hr Category Date Time Status Clean Catch Urine Specimen STAT Care 01/29/23 15:22 Active IV Insertion STAT Care 01/29/23 15:22 Active Telemetry q4h Care 01/29/23 16:14 Active AMYLASE Stat Lab 01/29/23 15:20 Completed CBC W DIFF Stat Lab 01/29/23 15:20 Completed CMP Stat Lab 01/29/23 15:20 Completed LIPASE Stat Lab 01/29/23 15:20 Completed UA W/RFX UR CULTURE Stat Lab 01/29/23 15:38 Completed Urine Triage Profile Stat Lab 01/29/23 15:38 Completed Medication Summary Generic Name Dose Route Start Last Admin Trade Name Freq PRN Reason Stop Dose Admin Sodium Chloride 1,000 mls @ 999 mls/hr 01/29/23 15:22 01/29/23 15:34 Sodium Chloride 0.9% 1000 Ml IV 01/29/23 16:22 999 mls/hr .Q1H1M STA Administration Potassium Chloride 20 meq in 100 mls @ 50 mls/hr 01/29/23 16:14 Potassium Chloride 20 Meq In Water 100ml IV 01/29/23 18:13 STAT ONE Sodium Chloride 1,000 mls @ 999 mls/hr 01/29/23 16:14 Sodium Chloride 0.9% 1000 Ml IV 01/29/23 17:14 .Q1H1M STA Discontinued Medications Generic Name Dose Route Start Last Admin Trade Name Cheli PRN Reason Stop Dose Admin Sodium Chloride Confirm 01/29/23 15:30 Sodium Chloride 0.9% 1000 Ml Administered 01/29/23 15:31 Dose 1,000 mls @ ud .ROUTE .STK-MED ONE Ondansetron HCl 4 mg 01/29/23 15:44 01/29/23 15:50 Ondansetron Hcl 4 Mg/2 Ml Vial IV 01/29/23 15:45 4 mg STAT ONE Administration Ondansetron HCl Confirm 01/29/23 15:49 Ondansetron Hcl 4 Mg/2 Ml Vial Administered 01/29/23 15:50 Dose 4 mg .ROUTE .STK-MED ONE Pantoprazole Sodium 40 mg 01/29/23 15:22 01/29/23 15:37 Pantoprazole 40 Mg Vial IV 01/29/23 15:23 40 mg STAT ONE Administration Pantoprazole Sodium Confirm 01/29/23 15:30 Pantoprazole 40 Mg Vial Administered 01/29/23 15:31 Dose 40 mg IV .STK-MED ONE Lab/Rad Data: Laboratory Result Diagrams 01/29/23 15:20 01/29/23 15:20 Laboratory Results 01/29/23 01/29/23 01/29/23 Range/Units 15:38 15:38 15:20 WBC (4.0-10.5) x10^3/uL RBC (4.1-5.4) x10^6/uL Hgb (12.0-16.0) g/dL Hct (35-47) % MCV (78-100) fL MCH (26-32) pg MCHC (32-36) g/dL RDW (11.5-14.0) % Plt Count (150-450) x10^3/uL MPV (7.5-11.0) fL Gran % (36.0-66.0) % Immature Gran % (Auto) (0.00-0.4) % Nucleat RBC Rel Count (0.00-0.1) % Eos # (Auto) (0-0.5) x10^3/uL Immature Gran # (Auto) (0.00-0.03) x10^3u/L Absolute Lymphs (auto) (1.0-4.6) x10^3/uL Absolute Monos (auto) (0.0-1.3) x10^3/uL Absolute Nucleated RBC (0.00-0.01) x10^3u/L Lymphocytes % (24.0-44.0) % Monocytes % (0.0-12.0) % Eosinophils % (0.00-5.0) % Basophils % (0.0-0.4) % Absolute Granulocytes (1.4-6.9) x10^3/uL Basophils # (0-0.4) x10^3/uL Sodium 141 (137-145) mmol/L Potassium 3.0 L* (3.5-5.1) mmol/L Chloride 99 (98-107) mmol/L Carbon Dioxide 33 H (22-30) mmol/L Anion Gap 11.2 (5-15) MEQ/L BUN 8 (7-17) mg/dL Creatinine 0.78 (0.52-1.04) mg/dL Estimated GFR 99.6 ML/MIN Glucose 142 H (74-106) mg/dL Calcium 9.7 (8.4-10.2) mg/dL Total Bilirubin 0.30 (0.2-1.3) mg/dL AST 33 (14-36) U/L ALT 30 (0-35) U/L Alkaline Phosphatase 67 (38-126) U/L Serum Total Protein 8.2 (6.3-8.2) g/dL Albumin 4.4 (3.5-5.0) g/dL Amylase 88 (30-110) U/L Lipase 102 (23-300) U/L Urine Color Yellow (Yellow) Urine Appearance Clear (Clear) Urine pH 8.5 A (4.6-8.0) Ur Specific [place] <=1.005 (1.005-1.030) Urine Protein Negative (Negative) Urine Glucose (UA) Negative (Negative) mg/dL Urine Ketones Negative (Negative) Urine Blood Negative (Negative) Urine Nitrite Negative (Negative) Urine Bilirubin Negative (Negative) Urine Urobilinogen 0.2 (0.2) mg/dL Ur Leukocyte Esterase Negative (Negative) U Hyaline Cast (Auto) NONE SEEN (0-2) /LPF Urine Microscopic RBC 0-2 (0-5) /HPF Urine Microscopic WBC 0-2 (0-5) /HPF Ur Epithelial Cells None Seen (None Seen) /HPF Urine Bacteria None Seen (None Seen) /HPF Urine Culture Reflexed NO (NO) Urine Opiates Level NEGATIVE (NEGATIVE) Ur Methadone NEGATIVE (NEGATIVE) Urine Barbiturates NEGATIVE (NEGATIVE) Ur Phencyclidine (PCP) NEGATIVE (NEGATIVE) Urine Amphetamine NEGATIVE (NEGATIVE) U Benzodiazepine Level NEGATIVE (NEGATIVE) Urine Cocaine NEGATIVE (NEGATIVE) Urine Marijuana (THC) NEGATIVE (NEGATIVE) 01/29/23 Range/Units 15:20 WBC 7.2 (4.0-10.5) x10^3/uL RBC 4.96 (4.1-5.4) x10^6/uL Hgb 14.5 (12.0-16.0) g/dL Hct 44.1 (35-47) % MCV 88.9 (78-100) fL MCH 29.2 (26-32) pg MCHC 32.9 (32-36) g/dL RDW 12.8 (11.5-14.0) % Plt Count 394 (150-450) x10^3/uL MPV 9.1 (7.5-11.0) fL Gran % 52.6 (36.0-66.0) % Immature Gran % (Auto) 0.3 (0.00-0.4) % Nucleat RBC Rel Count 0.0 (0.00-0.1) % Eos # (Auto) 0.38 (0-0.5) x10^3/uL Immature Gran # (Auto) 0.02 (0.00-0.03) x10^3u/L Absolute Lymphs (auto) 2.32 (1.0-4.6) x10^3/uL Absolute Monos (auto) 0.65 (0.0-1.3) x10^3/uL Absolute Nucleated RBC 0.00 (0.00-0.01) x10^3u/L Lymphocytes % 32.1 (24.0-44.0) % Monocytes % 9.0 (0.0-12.0) % Eosinophils % 5.3 H (0.00-5.0) % Basophils % 0.7 (0.0-0.4) % Absolute Granulocytes 3.80 (1.4-6.9) x10^3/uL Basophils # 0.05 (0-0.4) x10^3/uL Sodium (137-145) mmol/L Potassium (3.5-5.1) mmol/L Chloride (98-107) mmol/L Carbon Dioxide (22-30) mmol/L Anion Gap (5-15) MEQ/L BUN (7-17) mg/dL Creatinine (0.52-1.04) mg/dL Estimated GFR ML/MIN Glucose (74-106) mg/dL Calcium (8.4-10.2) mg/dL Total Bilirubin (0.2-1.3) mg/dL AST (14-36) U/L ALT (0-35) U/L Alkaline Phosphatase (38-126) U/L Serum Total Protein (6.3-8.2) g/dL Albumin (3.5-5.0) g/dL Amylase (30-110) U/L Lipase (23-300) U/L Urine Color (Yellow) Urine Appearance (Clear) Urine pH (4.6-8.0) Ur Specific [place] (1.005-1.030) Urine Protein (Negative) Urine Glucose (UA) (Negative) mg/dL Urine Ketones (Negative) Urine Blood (Negative) Urine Nitrite (Negative) Urine Bilirubin (Negative) Urine Urobilinogen (0.2) mg/dL Ur Leukocyte Esterase (Negative) U Hyaline Cast (Auto) (0-2) /LPF Urine Microscopic RBC (0-5) /HPF Urine Microscopic WBC (0-5) /HPF Ur Epithelial Cells (None Seen) /HPF Urine Bacteria (None Seen) /HPF Urine Culture Reflexed (NO) Urine Opiates Level (NEGATIVE) Ur Methadone (NEGATIVE) Urine Barbiturates (NEGATIVE) Ur Phencyclidine (PCP) (NEGATIVE) Urine Amphetamine (NEGATIVE) U Benzodiazepine Level (NEGATIVE) Urine Cocaine (NEGATIVE) Urine Marijuana (THC) (NEGATIVE) - Progress Progress: improved, pain not gone completely Progress Note: 01/29/23 15:30 Patient's medical issue is 1 of moderate complexity. Level complexity in the work-up performed is based on review of the patient's past medical history, review the patient's medication list, review the patient's drug allergy list, history of present illness and physical findings on examination. The work-up in this patient includes placement of intravenous line, CBC, CMP, urine drug triage, urinalysis, amylase and lipase levels, intravenous normal saline solution infusion and intravenous Protonix. I will not repeat the CAT scan of the abdomen and pelvis. Patient has had 4 negative CAT scans in the last few 3 months and 3 negative CAT scans in the last 2 weeks for the same complaint 01/29/23 16:18 I interpreted the lab results in this patient. Patient has mild hypokalemia. We will supplement her potassium with 20 mEq of potassium IV through [facility]. We will provide the patient with an additional liter of normal saline solution. Patient states that she can take prochlorperazine (Compazine) without any issues. We will provide her with 5 mg intravenous prochlorperazine. Counseled pt/family regarding: lab results, diagnosis, need for follow-up Medical Desision Making - Diagnostic Testing Diagnostic test were ordered, analyzed, and reviewed by me: Yes - Risk of complications The pt has a mod risk of morbidity or mortality based on: Need for prescription drug management - Departure Departure Disposition: Home Clinical Impression: Chronic vomiting, Hypokalemia Condition: Stable Critical Care Time: No Referrals: AMEE LOERA MD [Primary Care Provider] - Follow up/PCP as directed Additional Instructions: Drink plenty of clear liquids before advancing diet. Avoid tobacco use. Avoid alcohol use. Avoid caffeine use. Avoid narcotic use. Avoid fatty greasy spicy foods. Call your primary care provider and hydraulic hammer operator tomorrow, 01/30, to make an earlier follow-up appointment for further evaluation management.
[2023-01-29 15:06] VITALS: TEMP 97.6
[2023-01-29] MEDS ORDERED: PROTONIX 40 MG IV IV ONE ×2 (15:22→15:30)
[2023-01-29] MEDS ORDERED: Sodium Chloride 0.9% 1000 ML 1,000 ML IV STA ×2 (15:22→16:14)
[2023-01-29] MEDS ORDERED: Sodium Chloride 0.9% 1000 ML 1,000 ML ONE ×2 (15:30→16:20)
[2023-01-29 15:41] LABS: BASOPHIL % 0.7 % (0.0-0.4); Basophil (Absolute #) 0.05 x10^3/uL (0-0.4); Eosinophil % 5.3 % (0.00-5.0); Eosinophil (Absolute #) 0.38 x10^3/uL (0-0.5); Hematocrit 44.1 % (35-47); Hemoglobin 14.5 g/dL (12.0-16.0); IMMATURE GRAN # 0.02 x10^3u/L (0.00-0.03); IMMATURE GRAN % 0.3 % (0.00-0.4); Lymphocyte (Absolute #) 2.32 x10^3/uL (1.0-4.6); Lymphocytes % 32.1 % (24.0-44.0); Mean Cell Volume 88.9 fL (78-100); Mean Corpuscular Hemoglobin 29.2 pg (26-32); Mean Corpuscular Hgb Concent. 32.9 g/dL (32-36); Mean Platelet Volume 9.1 fL (7.5-11.0); Monocyte (Absolute #) 0.65 x10^3/uL (0.0-1.3); Neutrophil % 52.6 % (36.0-66.0); Platelet Count 394 x10^3/uL (150-450); Red Blood Count 4.96 x10^6/uL (4.1-5.4); Red Cell Distribution Width 12.8 % (11.5-14.0); White Blood Count 7.2 x10^3/uL (4.0-10.5)
[2023-01-29] MEDS ORDERED: Zofran 4 MG/2 ML VIAL IV ONE (15:44)
[2023-01-29 15:48] LABS: Appearance Clear (Clear); Bacteria None Seen /HPF (None Seen); Bilirubin Negative (Negative); Blood Negative (Negative); Epithelial Cells None Seen /HPF (None Seen); Glucose, Urine Negative (Negative); Hyaline Casts NONE SEEN /LPF (0-2); Ketones Negative (Negative); Leukocyte Esterase Negative (Negative); Nitrite Negative (Negative); Ph 8.5 (4.6-8.0); Protein,Urine Dip Negative (Negative); RBC 0-2 /HPF (0-5); Specific Gravity <=1.005 (1.005-1.030); Urobilinogen 0.2 mg/dL (0.2); WBC 0-2 /HPF (0-5)
[2023-01-29] MEDS ORDERED: Zofran 4 MG/2 ML VIAL ONE (15:49)
[2023-01-29 15:59] LABS: Amphetamine,Urine NEGATIVE (NEGATIVE); Barbiturate,Urine NEGATIVE (NEGATIVE); Benzodiazepine,Urine NEGATIVE (NEGATIVE); Cocaine,Urine NEGATIVE (NEGATIVE); Methadone,Urine NEGATIVE (NEGATIVE); Opiate,Urine NEGATIVE (NEGATIVE); PCP,Urine NEGATIVE (NEGATIVE); THC,Urine NEGATIVE (NEGATIVE)
[2023-01-29 16:10] LABS: ALBUMIN 4.4 g/dL (3.5-5.0); ANION GAP 11.2 MEQ/L (5-15); BILIRUBIN,TOTAL 0.3 mg/dL (0.2-1.3); Calcium 9.7 mg/dL (8.4-10.2); Creatinine 1 0.78 mg/dL (0.52-1.04); EST GLOMERULAR FILTRATION RATE 99.6 ML/MIN; Total Protein 8.2 g/dL (6.3-8.2)
[2023-01-29 16:12] LABS: ADD URINE CULTURE? NO (NO)
[2023-01-29] MEDS ORDERED: POTASSIUM CHLORIDE 20 mEq IN WATER 100ML 20 MEQ/100 ML BAG IV ONE (16:14)
[2023-01-29] MEDS ORDERED: POTASSIUM CHLORIDE 20 mEq IN WATER 100ML 100 ML IV ONE (16:20)
[2023-01-29] MEDS ORDERED: Pepcid 20 MG VIAL IV ONE ×2 (16:30→16:34)
[2023-01-29] MEDS ORDERED: Compazine 10 MG/2 ML IV ONE (16:59)
[2023-01-29] MEDS ORDERED: Compazine 10 MG/2 ML ONE (17:01)
[2023-01-29 18:45] VITALS: BP 119/79; PULSE 62; RESP 19; O2SAT 97
== END 2023-01-29 19:07 | disposition home or self-care (01) ==
LOC: EEVIPCON 14:53 → ED 14:53
DX: R11.15 Cyclical vomiting syndrome unrelated to migraine (principal); E87.6 Hypokalemia; R10.84 Generalized abdominal pain; E11.42 Type 2 diabetes mellitus with diabetic polyneuropathy; Z79.4 Long term (current) use of insulin; Z79.891 Long term (current) use of opiate analgesic; Z79.899 Other long term (current) drug therapy; Z28.310 Unvaccinated for COVID-19; Z72.0 Tobacco use
CPT/HCPCS: 36000; 36415; 80053; 80307; 81001; 82150; 83690; 85025; 96360; 96374; 96375; 99284; J2405; J3480

== ENCOUNTER 2023-05-09 16:23 | Emergency (ER) | payer OTHER, MEDICAID ==
--- NOTE | 2023-05-09 16:28 | ERPHSYRPT ---
- History of Present Illness Time Seen by Provider: 05/09/23 16:28 Source: patient Exam Limitations: no limitations Physician History: This is a 37-year-old white female patient who noticed an infection on her nasal bridge approximately 1 week ago. She is convinced that it is a spider bite although she did not see a spider or any type of insect. She was placed on Bactrim DS and took 2 doses (24 hours worth) of a 7-day prescription then stopped it. She stated that she stopped it because she started to break out in a rash. She was then using antibiotic ointment to the site. It is not improved. There is an abscess present now. Patient has a history of migraine headaches, she has RLS, insulin-dependent diabetes, peripheral neuropathy and pancreatitis. She is a daily smoker of cigarettes. She has not had a fever. Timing/Duration: week(s) (1) Severity: mild (To moderate) Location: face (Nasal bridge) Possible Causes: no cause identified Associated Symptoms: change in skin texture, swelling/mass/lumps Allergies/Adverse Reactions: ketorolac [From Toradol] Allergy (Verified 05/09/23 17:26) promethazine [From Phenergan] Allergy (Verified 05/09/23 17:26) tramadol Allergy (Verified 05/09/23 17:26) diphenhydramine [From Benadryl] Adverse Reaction (Verified 05/09/23 17:26) Home Medications: Insulin Detemir [Levemir] 80 units SQ BID 01/11/22 [History] Propranolol HCl [Inderal ] 60 mg PO BID 01/11/22 [History] Gabapentin 300 mg PO BID 01/21/22 [History] Pramipexole Di-HCl [Pramipexole Dihydrochloride] 1 mg PO BID 01/21/22 [History] SUMAtriptan succinate [Imitrex 50 mg] 50 mg PO DAILY PRN PRN 01/21/22 [History] Hx Tetanus, Diphtheria Vaccination/Date Given: Yes Hx Influenza Vaccination/Date Given: No Hx Pneumococcal Vaccination/Date Given: No Travel Risk - International Travel Have you traveled outside of the country in past 3 weeks: No - Coronavirus Screening Are you exhibiting any of the following symptoms?: No Close contact with a COVID-19 positive Pt in past 14-21 Days: No - Vaccine Status Have you recieved a Covid-19 vaccination: No - Review of Systems Constitutional: No Symptoms Eyes: No Symptoms Ears, Nose, & Throat: Other (Nasal bridge redness and swelling with abscess present) Respiratory: No Symptoms Cardiac: No Symptoms Abdominal/Gastrointestinal: No Symptoms Genitourinary Symptoms: No Symptoms Musculoskeletal: No Symptoms Skin: Cellulitis, Other (Abscess nasal bridge) Neurological: No Symptoms Psychological: No Symptoms Endocrine: No Symptoms Hematologic/Lymphatic: No Symptoms Immunological/Allergic: No Symptoms All Other Systems: Reviewed and Negative - Past Medical History Pertinent Past Medical History: Yes Neurological History: Migraines, Peripheral Neuropathy ENT History: Other Cardiac History: No Pertinent History Respiratory History: No Pertinent History Endocrine Medical History: Diabetes Type II Musculoskeletal History: No Pertinent History GI Medical History: Gallbladder Disease, Pancreatitis History: No Pertinent History Psycho-Social History: Anxiety, Depression Female Reproductive Disorders: No Pertinent History Other Medical History: carpal tunnel bilaterally. RLS - Past Surgical History Past Surgical History: Yes Neuro Surgical History: No Pertinent History Cardiac: No Pertinent History Respiratory: No Pertinent History Gastrointestinal: Cholecystectomy Genitourinary: No Pertinent History Musculoskeletal: No Pertinent History Female Surgical History: Section, Tubal Ligation Other Surgical History: 2 c sections-2nd had tubal as well - Social History Smoking Status: Current every day smoker How long have you smoked: 21 yrs Exposure to second hand smoke: No Alcohol Use: None Drug Use: methamphetamines Patient Lives Alone: No Significant Family History: no pertinent family hx - Nursing Vital Signs Nursing Vital Signs: Initial Vital Signs Temperature 98.7 F 05/09/23 17:44 Pulse Rate 78 05/09/23 17:44 Respiratory Rate 18 05/09/23 17:44 Blood Pressure 130/78 05/09/23 17:44 O2 Sat by Pulse Oximetry 98 05/09/23 17:44 Pain Scale Pain Intensity 7 - Physical Exam General Appearance: no apparent distress, alert, anxiety Eye Exam: PERRL/EOMI, eyes nml inspection Ears, Nose, Throat Exam: other (Abscess nasal bridge. Expressible pus present.) Neck Exam: normal inspection, non-tender, supple, full range of motion Respiratory Exam: airway intact, No chest tenderness, No respiratory distress Gastrointestinal/Abdomen Exam: No tenderness Pelvic Exam: not done Rectal Exam: not done Back Exam: normal inspection, normal range of motion, No CVA tenderness, No vertebral tenderness Extremity Exam: normal inspection, normal range of motion, pelvis stable Neurologic Exam: alert, oriented x 3, cooperative, produce team member II-XII nml as tested, normal mood/affect, nml cerebellar function, nml station & gait, sensation nml Skin Exam: other (Abscess and cellulitis skin overlying nasal bridge) Lymphatic Exam: No adenopathy SpO2 Interpretation: normal O2 Delivery: Room Air Procedures - Incision and Drainage Time of Procedure: 17:40 Timeout: Performed Site: Skin overlying nasal bridge Anesthesia: 1% Lidocaine cc's of anesthesia: 2 Blade Size: 15 I & D Procedure: betadine prep, culture obtained, irrigated with normal saline Results: small amount pus Progress: Expressible pus present. Culture sent of the pus to the lab. Patient tolerated the procedure well - Course Nursing assessment & vital signs reviewed: Yes Ordered Tests: Active Orders 24 hr Category Date Time Status CULTURE,WOUND Stat Lab 05/09/23 17:52 Ordered Medication Summary Discontinued Medications Generic Name Dose Route Start Last Admin Trade Name Cheli PRN Reason Stop Dose Admin Doxycycline Hyclate 100 mg 05/09/23 17:53 05/09/23 18:04 Doxycycline Hyclate 100 Mg Tablet PO 05/09/23 17:54 100 mg STAT ONE Administration Doxycycline Hyclate Confirm 05/09/23 18:03 Doxycycline Hyclate 100 Mg Tablet Administered 05/09/23 18:04 Dose 100 mg .ROUTE .STK-MED ONE Levofloxacin 500 mg 05/09/23 17:53 05/09/23 18:05 Levofloxacin 500 Mg Tablet PO 05/09/23 17:54 500 mg STAT ONE Administration Levofloxacin Confirm 05/09/23 18:02 Levofloxacin 500 Mg Tablet Administered 05/09/23 18:03 Dose 500 mg .ROUTE .STK-MED ONE Lidocaine HCl Confirm 05/09/23 17:37 Lidocaine Hcl 1% 20 Ml Mdv 20 Ml Ml Administered 05/09/23 17:38 Dose 3 ml .ROUTE .STK-MED ONE - Progress Progress: improved, pain not gone completely Progress Note: 05/09/23 18:06 Patient's medical issue is 1 of low complexity. The level of complexity and the workup performed is based on review of the patient's past medical history, review of the patient's medication list, review of the patient's drug allergy list, history of present illness and physical findings on examination. The workup in this patient includes Betadine prep with incision and drainage and culture of the pus that is present. We provided the patient with Levaquin 500 mg orally and doxycycline 100 mg orally. Patient was instructed return to the emergency department tomorrow before noon for reassessment. Counseled pt/family regarding: diagnosis, need for follow-up Medical Desision Making - Diagnostic Testing Diagnostic test were ordered, analyzed, and reviewed by me: No - Risk of complications The pt has a mod risk of morbidity or mortality based on: Need for prescription drug management - Departure Departure Disposition: Home Clinical Impression: Facial abscess Condition: Stable Critical Care Time: No Referrals: AMEE LOERA MD [Primary Care Provider] - Follow up/PCP as directed Additional Instructions: Do not use lotions ointments or creams to the site. Wash the site twice daily with soap and water. Allow the water to directly penetrate the incision and drainage site. Take your antibiotics as prescribed. Return to the emergency department tomorrow, 05/10/2023, before noon for reassessment. Prescriptions: Hydrocodone/APAP 5/325 [[place] 5/325 mg] 1 each PO Q8H PRN PRN #8 tablet MDD 3 PRN Reason: Pain Levofloxacin [Levaquin 500 MG Tablet] 500 mg PO DAILY #7 tablet Doxycycline Hyclate 100 mg [Vibramycin 100 MG] 100 mg PO BID #14 tab
[2023-05-09] MEDS ORDERED: XYLOCAINE 1% HCL 20 ML MDV ONE (17:37)
[2023-05-09 17:45] VITALS: BP 130/78; PULSE 78; RESP 18; TEMP 98.7; O2SAT 98
[2023-05-09] MEDS ORDERED: Levofloxacin 500 MG Tablet ONE (18:02)
[2023-05-09] MEDS ORDERED: Vibramycin 100 MG ONE (18:03)
[2023-05-09] MEDS: Vibramycin 100 MG PO ONE (18:04)
[2023-05-09] MEDS: Levofloxacin 500 MG Tablet PO ONE (18:05)
== END 2023-05-09 18:43 | disposition home or self-care (01) ==
LOC: ED 16:23
DX: J34.0 Abscess, furuncle and carbuncle of nose (principal); E11.42 Type 2 diabetes mellitus with diabetic polyneuropathy; Z79.4 Long term (current) use of insulin; Z79.891 Long term (current) use of opiate analgesic; Z79.899 Other long term (current) drug therapy; Z28.310 Unvaccinated for COVID-19; Z72.0 Tobacco use
CPT/HCPCS: 10060; 87070; 87077; 87186; 99283; A9270-GY

== ENCOUNTER 2023-06-15 17:11 | Emergency (ER) | payer MEDICAID, OTHER ==
--- NOTE | 2023-06-15 17:14 | ERPHSYRPT ---
- History of Present Illness Time Seen by Provider: 06/15/23 17:13 Allergies/Adverse Reactions: sulfamethoxazole [From Bactrim] Allergy (Intermediate, Verified 05/15/23 11:31) Itching trimethoprim [From Bactrim] Allergy (Intermediate, Verified 05/15/23 11:31) Itching ketorolac [From Toradol] Allergy (Verified 05/15/23 11:31) promethazine [From Phenergan] Allergy (Verified 05/15/23 11:31) tramadol Allergy (Verified 05/15/23 11:31) diphenhydramine [From Benadryl] Adverse Reaction (Verified 05/15/23 11:31) Home Medications: Propranolol HCl [Inderal ] 60 mg PO BID 01/11/22 [History] Gabapentin 300 mg PO TID 01/21/22 [History] Hx Tetanus, Diphtheria Vaccination/Date Given: Yes Hx Influenza Vaccination/Date Given: No Hx Pneumococcal Vaccination/Date Given: No Travel Risk - Vaccine Status Have you recieved a Covid-19 vaccination: No - Past Medical History Pertinent Past Medical History: Yes Neurological History: Migraines, Peripheral Neuropathy ENT History: Other Cardiac History: No Pertinent History Respiratory History: No Pertinent History Endocrine Medical History: Diabetes Type II Musculoskeletal History: No Pertinent History GI Medical History: Gallbladder Disease, Pancreatitis History: No Pertinent History Psycho-Social History: Anxiety, Depression Female Reproductive Disorders: No Pertinent History Other Medical History: carpal tunnel bilaterally. RLS - Past Surgical History Past Surgical History: Yes Neuro Surgical History: No Pertinent History Cardiac: No Pertinent History Respiratory: No Pertinent History Gastrointestinal: Cholecystectomy Genitourinary: No Pertinent History Musculoskeletal: No Pertinent History Female Surgical History: Section, Tubal Ligation Other Surgical History: 2 c sections-2nd had tubal as well Significant Family History: no pertinent family hx - Social History Smoking Status: Current every day smoker How long have you smoked: 21 yrs Exposure to second hand smoke: No Alcohol Use: None Drug Use: methamphetamines Patient Lives Alone: No - Nursing Vital Signs Nursing Vital Signs: Initial Vital Signs Temperature 98.7 F 06/15/23 17:20 Pulse Rate 112 H 06/15/23 17:20 Respiratory Rate 20 06/15/23 17:20 Blood Pressure 130/78 06/15/23 17:20 O2 Sat by Pulse Oximetry 100 06/15/23 17:20 Pain Scale Pain Intensity 6 - Departure Referrals: AMEE LOERA MD [Primary Care Provider] - Follow up/PCP as directed
[2023-06-15 17:24] VITALS: BP 130/78; PULSE 112; RESP 20; TEMP 98.7; O2SAT 100
== END 2023-06-15 18:02 | disposition left against medical advice (07) ==
LOC: ED 17:11
DX: R22.0 Localized swelling, mass and lump, head (principal)
CPT/HCPCS: 99281; G0463

== ENCOUNTER 2023-06-17 19:08 | Emergency (ER) | payer MEDICAID ==
--- NOTE | 2023-06-17 19:14 | ERPHSYRPT ---
- History of Present Illness Physician History: The pt left the waiting area prior to us having the opportunity to evaluate them - therefore we have no data to report. Allergies/Adverse Reactions: sulfamethoxazole [From Bactrim] Allergy (Intermediate, Verified 05/15/23 11:31) Itching trimethoprim [From Bactrim] Allergy (Intermediate, Verified 05/15/23 11:31) Itching ketorolac [From Toradol] Allergy (Verified 05/15/23 11:31) promethazine [From Phenergan] Allergy (Verified 05/15/23 11:31) tramadol Allergy (Verified 05/15/23 11:31) diphenhydramine [From Benadryl] Adverse Reaction (Verified 05/15/23 11:31) Home Medications: Propranolol HCl [Inderal ] 60 mg PO BID 01/11/22 [History] Gabapentin 300 mg PO TID 01/21/22 [History] Hx Tetanus, Diphtheria Vaccination/Date Given: Yes Hx Influenza Vaccination/Date Given: No Hx Pneumococcal Vaccination/Date Given: No Travel Risk - Vaccine Status Have you recieved a Covid-19 vaccination: No - Review of Systems Constitutional: No Symptoms (none known/reported) - Past Medical History Pertinent Past Medical History: Yes Neurological History: Migraines, Peripheral Neuropathy ENT History: Other Cardiac History: No Pertinent History Respiratory History: No Pertinent History Endocrine Medical History: Diabetes Type II Musculoskeletal History: No Pertinent History GI Medical History: Gallbladder Disease, Pancreatitis History: No Pertinent History Psycho-Social History: Anxiety, Depression Female Reproductive Disorders: No Pertinent History Other Medical History: carpal tunnel bilaterally. RLS - Past Surgical History Past Surgical History: Yes Neuro Surgical History: No Pertinent History Cardiac: No Pertinent History Respiratory: No Pertinent History Gastrointestinal: Cholecystectomy Genitourinary: No Pertinent History Musculoskeletal: No Pertinent History Female Surgical History: Section, Tubal Ligation Other Surgical History: 2 c sections-2nd had tubal as well Significant Family History: no pertinent family hx - Social History Smoking Status: Current every day smoker How long have you smoked: 21 yrs Exposure to second hand smoke: No Alcohol Use: None Drug Use: methamphetamines Patient Lives Alone: No - Physical Exam General Appearance: no apparent distress (none known/reported) - Progress Progress Note: The pt left the waiting area prior to us having the opportunity to evaluate them - therefore we have no data to report. - Departure Clinical Impression: left prior to eval Condition: Good Critical Care Time: No Referrals: AMEE LOERA MD [Primary Care Provider] - Follow up/PCP as directed Additional Instructions: The pt left the waiting area prior to us having the opportunity to evaluate them - therefore we have no data to report.
== END 2023-06-17 20:10 | disposition left against medical advice (07) ==
LOC: ED 19:08
DX: Z53.21 Procedure and treatment not carried out due to patient leaving prior to being seen by health care provider (principal)

== ENCOUNTER 2023-10-10 15:53 | Emergency (ER) | payer OTHER ==
[2023-10-10 16:01] VITALS: TEMP 98.2
[2023-10-10] MEDS ORDERED: Sodium Chloride 0.9% 1000 ML 1,000 ML ONE (16:37)
[2023-10-10] MEDS ORDERED: XYLOCAINE VISCOUS 2% 15 ML CUP ONE (16:37)
[2023-10-10] MEDS ORDERED: BENADRYL 50 MG/ML ONE (16:37)
[2023-10-10] MEDS ORDERED: MAALOX ES 30 ML UNIT DOSE ONE (16:37)
[2023-10-10] MEDS ORDERED: Zofran 4 MG/2 ML VIAL ONE (16:37)
[2023-10-10 16:38] LABS: Absolute Neutrophil Ct (ANC) 3.93 x10^3/uL (1.56-6.13); BASOPHIL % 0.7 % (0.1-1.2); Basophil (Absolute #) 0.05 x10^3/uL (0.01-0.08); Eosinophil % 7.2 % (0.7-5.8); Eosinophil (Absolute #) 0.52 x10^3/uL (0.04-0.36); Hematocrit 36.7 % (34.1-44.9); Hemoglobin 11.4 g/dL (11.2-15.7); IMMATURE GRAN # 0.03 x10^3u/L (0.001-0.031); IMMATURE GRAN % 0.4 % (0.001-0.429); Lymphocyte (Absolute #) 1.81 x10^3/uL (1.18-3.74); Lymphocytes % 24.9 % (19.3-51.7); Mean Cell Volume 82.3 fL (79.4-94.8); Mean Corpuscular Hemoglobin 25.6 pg (25.6-32.2); Mean Corpuscular Hgb Concent. 31.1 g/dL (32.2-35.5); Mean Platelet Volume 9.1 fL (9.4-12.3); Monocyte (Absolute #) 0.93 x10^3/uL (0.24-0.86); Monocytes % 12.8 % (4.7-12.5); Platelet Count 348 x10^3/uL (182-369); Red Blood Count 4.46 x10^6/uL (3.93-5.22); Red Cell Distribution Width 14.6 % (11.7-14.4); White Blood Count 7.3 x10^3/uL (3.98-10.04)
[2023-10-10] MEDS: Zofran 4 MG/2 ML VIAL IV ONE (16:39)
[2023-10-10] MEDS: GI COCKTAIL 45 ML (Maalox/Lidocaine) PO ONE (16:39)
[2023-10-10] MEDS: Sodium Chloride 0.9% 1000 ML 1,000 ML IV STA (16:41)
[2023-10-10] MEDS ORDERED: DECADRON 10MG INJ. ONE (16:49)
[2023-10-10] MEDS: DECADRON 10MG INJ. IV ONE (16:50)
[2023-10-10 16:53] LABS: ALBUMIN 4.2 g/dL (3.5-5.0); ANION GAP 14.7 MEQ/L (5-15); BILIRUBIN,TOTAL 0.3 mg/dL (0.2-1.3); Calcium 9.9 mg/dL (8.4-10.2); Creatinine 1 1.09 mg/dL (0.52-1.04); EST GLOMERULAR FILTRATION RATE 66.3 ML/MIN; Potassium 3.7 mmol/L (3.5-5.1); Total Protein 7.7 g/dL (6.3-8.2)
[2023-10-10] MEDS: BENADRYL 50 MG/ML IV ONE (17:02)
[2023-10-10 18:10] VITALS: RESP 13
[2023-10-10 18:18] LABS: Appearance Clear (Clear); Bacteria None Seen /HPF (None Seen); Bilirubin Negative (Negative); Blood Negative (Negative); Epithelial Cells None Seen /HPF (None Seen); Glucose, Urine Negative (Negative); Hyaline Casts NONE SEEN /LPF (0-2); Ketones Negative (Negative); Leukocyte Esterase Negative (Negative); Nitrite Negative (Negative); Protein,Urine Dip Negative (Negative); RBC 0-2 /HPF (0-5); Specific Gravity 1.025 (1.005-1.030); WBC 0-2 /HPF (0-5)
[2023-10-10 18:20] LABS: ADD URINE CULTURE? NO (NO)
[2023-10-10 18:49] VITALS: BP 109/62; PULSE 54; O2SAT 97
--- NOTE | 2023-10-10 18:59 | XRAY ---
Indication: Vomiting. Comparison: October 19, 2022 PA/lateral chest demonstrates new minimal left base subsegmental atelectasis/scarring. Remaining heart, lung, and bony thorax normal.
--- NOTE | 2023-10-10 19:10 | ERPHSYRPT ---
- History of Present Illness Time Seen by Provider: 10/10/23 16:07 Source: patient Exam Limitations: no limitations Patient Subjective Stated Complaint: pt here for vomiting started today. she is out of all her meds for nausea, she also is concerned because she has swelling to lower legs, she noticed a indention to right leg after her dog leaned on her. Triage Nursing Assessment: pt alert, walked in, resp easy, skin w/d/p. abd soft, edema not lower legs, moves all ext well, Physician History: Patient here with nausea, vomiting, epigastric pain. Patient does have a history of pancreatitis. 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 May have a history of gastroparesis. Last used meth in May. Patient also concerned because right lower leg is swelling, tenderness. Patient has been having nausea and vomiting for the past few days. She has not tried any to make it better or worse. No falls or trauma. She has some chronic gastric reflux but no chest pain, chest tightness. Same number of urinations and defecations. The patient has no signs of altered mental status, nuchal rigidity, signs of meningitis. T he patient is up-to-date on all vaccinations. Allergies/Adverse Reactions: sulfamethoxazole [From Bactrim] Allergy (Intermediate, Verified 10/10/23 15:59) Itching trimethoprim [From Bactrim] Allergy (Intermediate, Verified 10/10/23 15:59) Itching ketorolac [From Toradol] Allergy (Verified 10/10/23 15:59) promethazine [From Phenergan] Allergy (Verified 10/10/23 15:59) tramadol Allergy (Verified 10/10/23 15:59) diphenhydramine [From Benadryl] Adverse Reaction (Verified 10/10/23 15:59) Home Medications: Propranolol HCl [Inderal ] 60 mg PO BID 01/11/22 [History] Hx Tetanus, Diphtheria Vaccination/Date Given: No Hx Influenza Vaccination/Date Given: No Hx Pneumococcal Vaccination/Date Given: No Immunizations Up to Date: Yes Travel Risk - International Travel Have you traveled outside of the country in past 3 weeks: No - Emerging Infectious Disease Are you exhibiting symptoms associated with any current EIDs: No - Past Medical History Pertinent Past Medical History: Yes Neurological History: Migraines, Peripheral Neuropathy ENT History: Other Cardiac History: No Pertinent History Respiratory History: No Pertinent History Endocrine Medical History: Diabetes Type II Musculoskeletal History: No Pertinent History GI Medical History: Gallbladder Disease, Pancreatitis History: No Pertinent History Psycho-Social History: Anxiety, Depression Female Reproductive Disorders: No Pertinent History Other Medical History: carpal tunnel bilaterally. RLS - Past Surgical History Past Surgical History: Yes Neuro Surgical History: No Pertinent History Cardiac: No Pertinent History Respiratory: No Pertinent History Gastrointestinal: Cholecystectomy Genitourinary: No Pertinent History Musculoskeletal: No Pertinent History Female Surgical History: Section, Tubal Ligation Other Surgical History: 2 c sections-2nd had tubal as well Significant Family History: no pertinent family hx - Female History Hx Last Menstrual Period: august Now: No - Social History Smoking Status: Current every day smoker How long have you smoked: 21 yrs Exposure to second hand smoke: Yes Alcohol Use: None Drug Use: methamphetamines Patient Lives Alone: No - Social Determinants of Health Will the patient participate in the screening: Yes Do you worry about a steady place to live?: Yes Do you have any problems with any of the following?: No known problems In the past 12 months,have you had to go without utilities?: No Transportation Issues: No Has anyone in your support network made you feel unsafe?: No Have you or anyone in your house had to go without enough: No - Nursing Vital Signs Nursing Vital Signs: Initial Vital Signs Temperature 98.2 F 10/10/23 16:01 Pulse Rate 76 10/10/23 16:01 Respiratory Rate 16 10/10/23 16:01 Blood Pressure 154/87 10/10/23 16:01 O2 Sat by Pulse Oximetry 99 10/10/23 16:01 Pain Scale Pain Intensity 7 - Physical Exam SpO2 Interpretation: normal SpO2: 97 Comments: 10/10/23 19:07 Review of Systems Constitutional: Negative for fever. HENT: Negative for congestion. Respiratory: Negative for shortness of breath. Cardiovascular: Negative for chest pain. Gastrointestinal: Negative for abdominal pain. Genitourinary: Negative for dysuria. Musculoskeletal: Negative for back pain. Skin: Negative for rash. Neurological: Negative for headaches. Psychiatric/Behavioral: Negative for behavioral problems. All other systems reviewed and are negative. Physical Exam Vitals signs and nursing note reviewed. Constitutional: Appearance: Patient is well-developed. HENT: Head: Normocephalic and atraumatic. Eyes: Conjunctiva/sclera: Conjunctivae normal. Neck: Musculoskeletal: Normal range of motion. Trachea: No tracheal deviation. Cardiovascular: Rate and Rhythm: Normal rate. Pulmonary: Effort: Pulmonary effort is normal. No respiratory distress. Abdominal: Palpations: Abdomen is soft. Musculoskeletal: General: No deformity. Right lower leg edema, tenderness. No obvious redness or cellulitis. No obvious deformity, sensation intact, 2+ capillary refill, 2 point tactile discrimination intact. 5 out of 5 strength. Full range of motion without pain. Compartments are soft, nontender. Overlying skin shows no tenting, bruising, ecchymosis. Skin: General: Skin is warm and dry. Neurological/ Psychiatric: Mental Status: Mental status, behavior, interaction with environment is appropriate for patient's age and condition - Course Nursing assessment & vital signs reviewed: Yes EKG Interpreted by Me: Sinus Rhythm (Patient is here with sinus rhythm, no obvious ST changes, no signs of ischemia, rate 62, FL interval 167, QTc is 433) Ordered Tests: Active Orders 24 hr Category Date Time Status AMA [Release AMA] OM.NOW Care 10/10/23 18:49 Active EKG-ER Only STAT Care 10/10/23 16:22 Active IV Insertion STAT Care 10/10/23 16:22 Active ABDOMEN AND PELVIS W CONTRAST [CT] Stat Exams 10/10/23 16:22 Taken CHEST 2 VIEWS (PA AND LAT) Stat Exams 10/10/23 16:22 Completed AMYLASE Stat Lab 10/10/23 16:30 Completed CBC W DIFF Stat Lab 10/10/23 16:30 Completed CMP Stat Lab 10/10/23 16:30 Completed D-DIMER QUANTITATIVE Stat Lab 10/10/23 16:30 Completed LIPASE Stat Lab 10/10/23 16:30 Completed TROPONIN Q4H Lab 10/10/23 16:30 Completed TROPONIN Q4H Lab 10/10/23 20:30 Ordered TROPONIN Q4H Lab 10/11/23 00:30 Ordered UA W/RFX UR CULTURE Stat Lab 10/10/23 18:06 Completed Medication Summary Discontinued Medications Generic Name Dose Route Start Last Admin Trade Name Freq PRN Reason Stop Dose Admin Al Hydrox/Mg Hydrox/Simethicone Confirm 10/10/23 16:37 Mag Hydrox/Al Hydrox/Simeth 30 Ml Udcup Administered 10/10/23 16:38 Dose 30 ml .ROUTE .STK-MED ONE Dexamethasone Sodium Phosphate 10 mg 10/10/23 16:41 10/10/23 16:50 Dexamethasone Sod Phosphate 10 Mg/Ml IV 10/10/23 16:42 10 mg STAT ONE Administration Dexamethasone Sodium Phosphate Confirm 10/10/23 16:49 Dexamethasone Sod Phosphate 10 Mg/Ml Administered 10/10/23 16:50 Dose 10 mg .ROUTE .STK-MED ONE Diphenhydramine HCl 25 mg 10/10/23 16:22 10/10/23 17:02 Diphenhydramine Hcl 50 Mg/Ml Vial IV 10/10/23 16:23 Not Given STAT ONE Diphenhydramine HCl Confirm 10/10/23 16:37 Diphenhydramine Hcl 50 Mg/Ml Vial Administered 10/10/23 16:38 Dose 50 mg .ROUTE .STK-MED ONE Droperidol 1.25 mg 10/10/23 16:22 10/10/23 16:41 Droperidol 5 Mg/2 Ml Vial IV 10/10/23 16:23 1.25 mg STAT ONE Administration Droperidol Confirm 10/10/23 16:37 Droperidol 5 Mg/2 Ml Vial Administered 10/10/23 16:38 Dose 5 mg .ROUTE .STK-MED ONE Sodium Chloride 1,000 mls @ 999 mls/hr 10/10/23 16:22 10/10/23 16:41 Sodium Chloride 0.9% 1000 Ml IV 10/10/23 17:22 999 mls/hr .Q1H1M STA Administration Sodium Chloride Confirm 10/10/23 16:37 Sodium Chloride 0.9% 1000 Ml Administered 10/10/23 16:38 Dose 1,000 mls @ ud .ROUTE .STK-MED ONE Lidocaine HCl Confirm 10/10/23 16:37 Lidocaine Hcl 2% Viscous 15 Ml Udcup Administered 10/10/23 16:38 Dose 15 ml .ROUTE .STK-MED ONE Magnesium Hydroxide 45 ml 10/10/23 16:22 10/10/23 16:39 Mag Hydrx/Alum Hyd/Simeth/Lido 45 Ml Bottle PO 10/10/23 16:23 45 ml STAT ONE Administration Ondansetron HCl 4 mg 10/10/23 16:22 10/10/23 16:39 Ondansetron Hcl 4 Mg/2 Ml Vial IV 10/10/23 16:23 4 mg STAT ONE Administration Ondansetron HCl Confirm 10/10/23 16:37 Ondansetron Hcl 4 Mg/2 Ml Vial Administered 10/10/23 16:38 Dose 4 mg .ROUTE .K-MED ONE Lab/Rad Data: Laboratory Result Diagrams 10/10/23 16:30 10/10/23 16:30 Laboratory Results 10/10/23 10/10/23 10/10/23 Range/Units 18:06 16:30 16:30 WBC (3.98-10.04) x10^3/uL RBC (3.93-5.22) x10^6/uL Hgb (11.2-15.7) g/dL Hct (34.1-44.9) % MCV (79.4-94.8) fL MCH (25.6-32.2) pg MCHC (32.2-35.5) g/dL RDW (11.7-14.4) % Plt Count (182-369) x10^3/uL MPV (9.4-12.3) fL Gran % (34.0-71.1) % Immature Gran % (Auto) (0.001-0.429) % Nucleat RBC Rel Count (0.00-0.2) % Eos # (Auto) (0.04-0.36) x10^3/uL Immature Gran # (Auto) (0.001-0.031) x10^3u/L Absolute Lymphs (auto) (1.18-3.74) x10^3/uL Absolute Monos (auto) (0.24-0.86) x10^3/uL Absolute Nucleated RBC (0.00-0.012) x10^3u/L Lymphocytes % (19.3-51.7) % Monocytes % (4.7-12.5) % Eosinophils % (0.7-5.8) % Basophils % (0.1-1.2) % Absolute Granulocytes (1.56-6.13) x10^3/uL Basophils # (0.01-0.08) x10^3/uL D-Dimer 0.51 H (0.0-0.50) mg/L Sodium (135-145) mmol/L Potassium (3.5-5.1) mmol/L Chloride (98-107) mmol/L Carbon Dioxide (22-30) mmol/L Anion Gap (5-15) MEQ/L BUN (7-17) mg/dL Creatinine (0.52-1.04) mg/dL Estimated GFR ML/MIN Glucose (74-106) mg/dL Calcium (8.4-10.2) mg/dL Total Bilirubin (0.2-1.3) mg/dL AST (14-36) U/L ALT (0-35) U/L Alkaline Phosphatase (38-126) U/L Troponin I < 0.012 (0.000-0.033) ng/mL Serum Total Protein (6.3-8.2) g/dL Albumin (3.5-5.0) g/dL Amylase (30-110) U/L Lipase (23-300) U/L Urine Color Yellow (Yellow) Urine Appearance Clear (Clear) Urine pH 7.0 (4.6-8.0) Ur Specific [place] 1.025 (1.005-1.030) Urine Protein Negative (Negative) Urine Glucose (UA) Negative (Negative) mg/dL Urine Ketones Negative (Negative) Urine Blood Negative (Negative) Urine Nitrite Negative (Negative) Urine Bilirubin Negative (Negative) Urine Urobilinogen 1.0 A (0.2) mg/dL Ur Leukocyte Esterase Negative (Negative) U Hyaline Cast (Auto) NONE SEEN (0-2) /LPF Urine Microscopic RBC 0-2 (0-5) /HPF Urine Microscopic WBC 0-2 (0-5) /HPF Ur Epithelial Cells None Seen (None Seen) /HPF Urine Bacteria None Seen (None Seen) /HPF Urine Culture Reflexed NO (NO) 10/10/23 10/10/23 Range/Units 16:30 16:30 WBC 7.3 (3.98-10.04) x10^3/uL RBC 4.46 (3.93-5.22) x10^6/uL Hgb 11.4 (11.2-15.7) g/dL Hct 36.7 (34.1-44.9) % MCV 82.3 (79.4-94.8) fL MCH 25.6 (25.6-32.2) pg MCHC 31.1 L (32.2-35.5) g/dL RDW 14.6 H (11.7-14.4) % Plt Count 348 (182-369) x10^3/uL MPV 9.1 L (9.4-12.3) fL Gran % 54.0 (34.0-71.1) % Immature Gran % (Auto) 0.4 (0.001-0.429) % Nucleat RBC Rel Count 0.0 (0.00-0.2) % Eos # (Auto) 0.52 H (0.04-0.36) x10^3/uL Immature Gran # (Auto) 0.03 (0.001-0.031) x10^3u/L Absolute Lymphs (auto) 1.81 (1.18-3.74) x10^3/uL Absolute Monos (auto) 0.93 H (0.24-0.86) x10^3/uL Absolute Nucleated RBC 0.00 (0.00-0.012) x10^3u/L Lymphocytes % 24.9 (19.3-51.7) % Monocytes % 12.8 H (4.7-12.5) % Eosinophils % 7.2 H (0.7-5.8) % Basophils % 0.7 (0.1-1.2) % Absolute Granulocytes 3.93 (1.56-6.13) x10^3/uL Basophils # 0.05 (0.01-0.08) x10^3/uL D-Dimer (0.0-0.50) mg/L Sodium 141 (135-145) mmol/L Potassium 3.7 (3.5-5.1) mmol/L Chloride 102 (98-107) mmol/L Carbon Dioxide 28 (22-30) mmol/L Anion Gap 14.7 (5-15) MEQ/L BUN 8 (7-17) mg/dL Creatinine 1.09 H (0.52-1.04) mg/dL Estimated GFR 66.3 ML/MIN Glucose 146 H (74-106) mg/dL Calcium 9.9 (8.4-10.2) mg/dL Total Bilirubin 0.30 (0.2-1.3) mg/dL AST 24 (14-36) U/L ALT 16 (0-35) U/L Alkaline Phosphatase 55 (38-126) U/L Troponin I (0.000-0.033) ng/mL Serum Total Protein 7.7 (6.3-8.2) g/dL Albumin 4.2 (3.5-5.0) g/dL Amylase 93 (30-110) U/L Lipase 88 (23-300) U/L Urine Color (Yellow) Urine Appearance (Clear) Urine pH (4.6-8.0) Ur Specific [place] (1.005-1.030) Urine Protein (Negative) Urine Glucose (UA) (Negative) mg/dL Urine Ketones (Negative) Urine Blood (Negative) Urine Nitrite (Negative) Urine Bilirubin (Negative) Urine Urobilinogen (0.2) mg/dL Ur Leukocyte Esterase (Negative) U Hyaline Cast (Auto) (0-2) /LPF Urine Microscopic RBC (0-5) /HPF Urine Microscopic WBC (0-5) /HPF Ur Epithelial Cells (None Seen) /HPF Urine Bacteria (None Seen) /HPF Urine Culture Reflexed (NO) - Progress Progress: improved Progress Note: 10/10/23 19:08 Differential diagnosis includes kidney stone, compression fracture, infection, UTI, triple AAA, PNA, STEMI, NSTEMI, other infection, musculoskeletal pain, pneumothorax - insert IV for symptom management, nausea medication, fluids - consider imaging: CT ab/pelvis or U/S - We'll obtain basic labs, fluids, EKG, troponin, chest x-ray - EKG shows no ST changes - my read - O2 saturations consistently greater than 95%. - CXR shows no pneumonia, pneumothorax - my read - D-dimer given concern for right lower leg edema, blood clot Reevaluation: Patient feels much improved with medication. No leukocytosis, troponin negative EKG shows no ischemia. Labs look stable overall. D-dimer was negative. Therefore I did recommend a right lower leg ultrasound. This would be looking for blood clot. Patient did decline this. I did highly recommend I went over the risks and benefits with the patient. Including and serious morbidity. Patient still declined a ultrasound. States that she will follow-up with her PCP as an outpatient. Patient also wanted to leave before CT scan had resulted. CT scan is still not resulted at the time of the writing of this note. Again I did risks explained the risks and benefits of leaving including , serious morbidity, mortality. She stated that she felt very strongly about leaving. I could not talk her into staying otherwise. She is welcome to return here at any point in time. She will need to follow-up with her PCP or call back here for the results of the CT scan. Counseled pt/family regarding: lab results, diagnosis, need for follow-up, rad results - Departure Departure Disposition: Home Clinical Impression: Nausea & vomiting Condition: Stable Critical Care Time: No Referrals: AMEE LOERA MD [Primary Care Provider] - Follow up/PCP as directed
--- NOTE | 2023-10-11 08:40 | XRAY ---
Indication: Vomiting. Abdominal pain. History pancreatitis. Multiple contiguous axial images obtained through the abdomen and pelvis using 80 cc Isovue 370 contrast. Comparison: January 23, 2023 Lung bases clear. Heart not enlarged. New mild fluid distended distal esophagus presumed from gastroesophageal reflux. Fluid distended stomach either from recent ingestion versus gastritis. Noncontrasted stomach and bowel loops appear nonobstructed with normal appendix. There is now mild diffuse scattered colonic fecal debris. Again mild fatty liver, nonobstructing left renal punctate calculus, and cholecystectomy. No free fluid/air. Remaining liver, pancreas, spleen, adrenal glands, kidneys, ureters, bladder, uterus, and aorta are unremarkable. No pathologic retroperitoneal lymphadenopathy. Osseous structures intact again with minimal levoscoliosis and mild L5-S1 degenerative disc disease. Impression: 1. New CT findings favoring GERD. 2. New fluid distended stomach either from recent ingestion versus gastritis. 3. New mild diffuse fecal stasis. 4. Chronic findings including fatty liver, nonobstructing left renal calculus, and chronic bony findings.
== END 2023-10-10 18:25 | disposition left against medical advice (07) ==
LOC: ED 15:53
DX: R11.2 Nausea with vomiting, unspecified (principal); R60.0 Localized edema; E11.42 Type 2 diabetes mellitus with diabetic polyneuropathy; Z79.899 Other long term (current) drug therapy; Z72.0 Tobacco use; Z59.9 Problem related to housing and economic circumstances, unspecified
CPT/HCPCS: 36000; 36415; 71046; 74177; 80053; 81001; 82150; 83690; 84484; 85025; 85379; 93005; 96360; 96374; 96375; 99284; J1100; J1200; J2405; A9270-GY

== ENCOUNTER 2023-10-11 04:22 | Emergency (ER) | payer OTHER ==
[2023-10-11 04:44] VITALS: RESP 18; TEMP 98.1
--- NOTE | 2023-10-11 05:00 | ERPHSYRPT ---
- History of Present Illness Time Seen by Provider: 10/11/23 04:58 Source: patient Exam Limitations: no limitations Patient Subjective Stated Complaint: pt states she left [facility] earlier today and has increased vomiting since. Triage Nursing Assessment: pt alert and oriented, answers questions approp. pt arrive per ambulance and transfers self to stretcher. steady gait noted. respirations nonlabored. skin warm and dry. pt dry heaving through triage. abd soft and nontender Physician History: Patient is a 38-year-old female presents to the emergency department via EMS for evaluation of nausea and vomiting. Patient was in our ED for the same approximately 4 hours ago. Patient left AMA. Patient states that she felt she had been here too long. However during the time she was here patient had blood work completed. CAT scan abdomen pelvis was completed as well. CAT scan was suggestive of gastritis. No associated chest pain or shortness of breath. No fever. No trauma. Patient otherwise feels well. She voices no other complaints or concerns at this time. Portions of this note were created with voice recognition technology. There may be grammatical, spelling, punctuation or sound alike errors Timing/Duration: today Severity: moderate Modifying Factors: Improves With: nothing Associated Symptoms: denies symptoms Allergies/Adverse Reactions: promethazine [From Phenergan] Allergy (Severe, Verified 10/11/23 04:25) Difficulty Breathing only with iv phenergan ketorolac [From Toradol] Allergy (Intermediate, Verified 10/11/23 04:25) Rash sulfamethoxazole [From Bactrim] Allergy (Intermediate, Verified 10/11/23 04:25) Itching tramadol Allergy (Intermediate, Verified 10/11/23 04:25) Rash trimethoprim [From Bactrim] Allergy (Intermediate, Verified 10/11/23 04:25) Itching diphenhydramine [From Benadryl] Adverse Reaction (Severe, Verified 10/11/23 04:25) Difficulty Swallowing only with iv benadryl Home Medications: Propranolol HCl [Inderal ] 60 mg PO BID 01/11/22 [History] Hx Tetanus, Diphtheria Vaccination/Date Given: Yes Hx Influenza Vaccination/Date Given: No Hx Pneumococcal Vaccination/Date Given: No Immunizations Up to Date: Yes Travel Risk - International Travel Have you traveled outside of the country in past 3 weeks: No - Emerging Infectious Disease Are you exhibiting symptoms associated with any current EIDs: No - Review of Systems Constitutional: No Symptoms, No Fever, No Chills Eyes: No Symptoms Ears, Nose, & Throat: No Symptoms Respiratory: No Symptoms, No Cough, No Dyspnea Cardiac: No Symptoms, No Chest Pain, No Edema, No Syncope Abdominal/Gastrointestinal: No Symptoms, No Abdominal Pain, No Nausea, No Vomiting, No Diarrhea Genitourinary Symptoms: No Symptoms, No Dysuria Musculoskeletal: No Symptoms, No Back Pain, No Neck Pain Skin: No Symptoms, No Rash Neurological: No Symptoms, No Dizziness, No Focal Weakness, No Sensory Changes Psychological: No Symptoms Endocrine: No Symptoms Hematologic/Lymphatic: No Symptoms Immunological/Allergic: No Symptoms All Other Systems: Reviewed and Negative - Past Medical History Pertinent Past Medical History: Yes Neurological History: Migraines, Peripheral Neuropathy ENT History: Other Cardiac History: No Pertinent History Respiratory History: No Pertinent History Endocrine Medical History: Diabetes Type II Musculoskeletal History: No Pertinent History GI Medical History: Gallbladder Disease, Pancreatitis History: No Pertinent History Psycho-Social History: Anxiety, Depression Female Reproductive Disorders: No Pertinent History Other Medical History: carpal tunnel bilaterally. RLS - Past Surgical History Past Surgical History: Yes Neuro Surgical History: No Pertinent History Cardiac: No Pertinent History Respiratory: No Pertinent History Gastrointestinal: Cholecystectomy Genitourinary: No Pertinent History Musculoskeletal: No Pertinent History Female Surgical History: Section, Tubal Ligation Other Surgical History: 2 c sections-2nd had tubal as well Significant Family History: no pertinent family hx - Female History Hx Last Menstrual Period: last month Hx Now: No - Social History Smoking Status: Current every day smoker How long have you smoked: 21 yrs Exposure to second hand smoke: Yes Alcohol Use: None Drug Use: methamphetamines Patient Lives Alone: No - Social Determinants of Health Will the patient participate in the screening: Yes Do you worry about a steady place to live?: Yes Do you have any problems with any of the following?: No known problems In the past 12 months,have you had to go without utilities?: No Transportation Issues: No Has anyone in your support network made you feel unsafe?: No Have you or anyone in your house had to go without enough: No - Nursing Vital Signs Nursing Vital Signs: Initial Vital Signs Temperature 98.1 F 10/11/23 04:30 Pulse Rate 86 10/11/23 04:30 Respiratory Rate 18 10/11/23 04:30 Blood Pressure 110/72 10/11/23 04:30 O2 Sat by Pulse Oximetry 99 10/11/23 04:30 Pain Scale Pain Intensity 6 - Physical Exam General Appearance: no apparent distress, alert Eye Exam: PERRL/EOMI, eyes nml inspection Ears, Nose, Throat Exam: normal ENT inspection, TMs normal, pharynx normal, moist mucous membranes Neck Exam: normal inspection, non-tender, supple, full range of motion Respiratory Exam: normal breath sounds, lungs clear, airway intact, No respiratory distress Cardiovascular Exam: regular rate/rhythm, normal heart sounds, normal peripheral pulses Gastrointestinal/Abdomen Exam: soft, normal bowel sounds, No tenderness, No mass Back Exam: normal inspection, normal range of motion, No CVA tenderness, No vertebral tenderness Extremity Exam: normal inspection, normal range of motion, pelvis stable Neurologic Exam: alert, oriented x 3, cooperative, normal mood/affect, sensation nml, No motor deficits Skin Exam: normal color, warm, dry, No rash Lymphatic Exam: No adenopathy SpO2 Interpretation: normal SpO2: 99 O2 Delivery: Room Air - Course Nursing assessment & vital signs reviewed: Yes Ordered Tests: Active Orders 24 hr Category Date Time Status Clean Catch Urine Specimen STAT Care 10/11/23 04:51 Active CBC W DIFF Stat Lab 10/11/23 06:40 Received CMP Stat Lab 10/11/23 06:40 Received LIPASE Stat Lab 10/11/23 06:40 Received TROPONIN Q4H Lab 10/11/23 06:40 Received TROPONIN Q4H Lab 10/11/23 09:15 Ordered TROPONIN Q4H Lab 10/11/23 13:15 Ordered UA W/RFX UR CULTURE Stat Lab 10/11/23 05:01 Completed Urine Triage Profile Stat Lab 10/11/23 05:15 Completed Medication Summary Generic Name Dose Route Start Last Admin Trade Name Freq PRN Reason Stop Dose Admin Pantoprazole Sodium 40 mg 10/11/23 05:15 10/11/23 05:30 Pantoprazole 40 Mg Vial IV 11/10/23 05:14 40 mg Q24H HINA Administration Discontinued Medications Generic Name Dose Route Start Last Admin Trade Name Freq PRN Reason Stop Dose Admin Al Hydrox/Mg Hydrox/Simethicone Confirm 10/11/23 05:17 Mag Hydrox/Al Hydrox/Simeth 30 Ml Udcup Administered 10/11/23 05:18 Dose 30 ml .ROUTE .STK-MED ONE Sodium Chloride 1,000 mls @ 999 mls/hr 10/11/23 05:08 10/11/23 05:30 Sodium Chloride 0.9% 1000 Ml IV 10/11/23 06:08 999 mls/hr .Q1H1M STA Administration Sodium Chloride Confirm 10/11/23 05:17 Sodium Chloride 0.9% 1000 Ml Administered 10/11/23 05:18 Dose 1,000 mls @ ud .ROUTE .STK-MED ONE Lidocaine HCl Confirm 10/11/23 05:17 Lidocaine Hcl 2% Viscous 15 Ml Udcup Administered 10/11/23 05:18 Dose 15 ml .ROUTE .STK-MED ONE Magnesium Hydroxide 45 ml 10/11/23 05:07 10/11/23 05:30 Mag Hydrx/Alum Hyd/Simeth/Lido 45 Ml Bottle PO 10/11/23 05:08 45 ml STAT ONE Administration Ondansetron HCl 4 mg 10/11/23 05:08 10/11/23 05:30 Ondansetron Hcl 4 Mg/2 Ml Vial IV 10/11/23 05:09 4 mg STAT ONE Administration Ondansetron HCl Confirm 10/11/23 05:27 Ondansetron Hcl 4 Mg/2 Ml Vial Administered 10/11/23 05:28 Dose 4 mg .ROUTE .STK-MED ONE Lab/Rad Data: Laboratory Results 10/11/23 10/11/23 Range/Units 05:15 05:01 Urine Color Yellow (Yellow) Urine Appearance Clear (Clear) Urine pH 7.5 (4.6-8.0) Ur Specific [place] 1.010 (1.005-1.030) Urine Protein Negative (Negative) Urine Glucose (UA) 500 A (Negative) mg/dL Urine Ketones Negative (Negative) Urine Blood Negative (Negative) Urine Nitrite Negative (Negative) Urine Bilirubin Negative (Negative) Urine Urobilinogen 0.2 (0.2) mg/dL Ur Leukocyte Esterase Negative (Negative) U Hyaline Cast (Auto) NONE SEEN (0-2) /LPF Urine Microscopic RBC 0-2 (0-5) /HPF Urine Microscopic WBC 0-2 (0-5) /HPF Ur Epithelial Cells None Seen (None Seen) /HPF Urine Bacteria None Seen (None Seen) /HPF Urine Culture Reflexed NO (NO) Urine Opiates Level NEGATIVE (NEGATIVE) Ur Methadone NEGATIVE (NEGATIVE) Urine Barbiturates NEGATIVE (NEGATIVE) Ur Phencyclidine (PCP) NEGATIVE (NEGATIVE) Urine Amphetamine NEGATIVE (NEGATIVE) U Benzodiazepine Level NEGATIVE (NEGATIVE) Urine Cocaine NEGATIVE (NEGATIVE) Urine Marijuana (THC) NEGATIVE (NEGATIVE) - Progress Progress: improved Progress Note: CT scan performed today at 6:53 PM. Normal appendix. New moderate fluid distended stomach either recent ingestion versus gastritis. Fatty liver, mild diffuse fecal stasis, nonobstructing left renal punctate stone 10/11/23 04:55 38-year-old female presents to emergency department for evaluation of nausea and vomiting epigastric pain. Patient was in our ED earlier. CT scan suggestive of gastritis. Patient reassessed. Symptoms are improving. Labs are pending. Currently the change of shift. Patient endorsed oncoming physician who will review the labs, reassessed patient to make final disposition. Portions of this note were created with voice recognition technology. There may be grammatical, spelling, punctuation or sound alike errors Complexity problem addressed is moderate acute complicated. No critical care time. Complex of data reviewed and analyzed is moderate. Test ordered test reviewed results analyzed and correlated clinically with history and physical examination. Risk of complication and or risk of morbidity/mortality patient management is moderate. Vital stable. Time spent to transfer care approximately 5 minutes. plan of care established via shared decision making. No social determinants of health present impede follow-up. Portions of this note were created with voice recognition technology. There may be grammatical, spelling, punctuation or sound alike errors 10/11/23 06:50 Counseled pt/family regarding: lab results, diagnosis, need for follow-up - Departure Departure Disposition: Home Clinical Impression: Nausea & vomiting, Gastritis Condition: Stable Critical Care Time: No Referrals: AMEE LOERA MD [Primary Care Provider] - Follow up/PCP as directed Prescriptions: Ondansetron ODT 4 MG [Zofran Odt 4 mg] 4 mg PO Q6H PRN PRN #10 tablet PRN Reason: Vomiting PANTOPRAZOLE 40 mg Tablet [Protonix 40MG Tablet] 40 mg PO QPM 14 Days #14 tab
[2023-10-11] MEDS ORDERED: MAALOX ES 30 ML UNIT DOSE ONE (05:17)
[2023-10-11] MEDS ORDERED: Sodium Chloride 0.9% 1000 ML 1,000 ML ONE (05:17)
[2023-10-11] MEDS ORDERED: PROTONIX 40 MG IV IV ONE (05:17)
[2023-10-11] MEDS ORDERED: XYLOCAINE VISCOUS 2% 15 ML CUP ONE (05:17)
[2023-10-11] MEDS ORDERED: Zofran 4 MG/2 ML VIAL ONE (05:27)
[2023-10-11] MEDS: GI COCKTAIL 45 ML (Maalox/Lidocaine) PO ONE (05:30)
[2023-10-11] MEDS: PROTONIX 40 MG IV IV SCH (05:30)
[2023-10-11] MEDS: Zofran 4 MG/2 ML VIAL IV ONE (05:30)
[2023-10-11] MEDS: Sodium Chloride 0.9% 1000 ML 1,000 ML IV STA (05:30)
[2023-10-11 05:53] LABS: Appearance Clear (Clear); Bacteria None Seen /HPF (None Seen); Bilirubin Negative (Negative); Blood Negative (Negative); Epithelial Cells None Seen /HPF (None Seen); Glucose, Urine 500 mg/dL (Negative); Hyaline Casts NONE SEEN /LPF (0-2); Ketones Negative (Negative); Leukocyte Esterase Negative (Negative); Nitrite Negative (Negative); Ph 7.5 (4.6-8.0); Protein,Urine Dip Negative (Negative); RBC 0-2 /HPF (0-5); Urobilinogen 0.2 mg/dL (0.2); WBC 0-2 /HPF (0-5)
[2023-10-11 05:54] LABS: ADD URINE CULTURE? NO (NO)
[2023-10-11 06:03] LABS: Amphetamine,Urine NEGATIVE (NEGATIVE); Barbiturate,Urine NEGATIVE (NEGATIVE); Benzodiazepine,Urine NEGATIVE (NEGATIVE); Cocaine,Urine NEGATIVE (NEGATIVE); Methadone,Urine NEGATIVE (NEGATIVE); Opiate,Urine NEGATIVE (NEGATIVE); PCP,Urine NEGATIVE (NEGATIVE); THC,Urine NEGATIVE (NEGATIVE)
[2023-10-11 06:32] VITALS: BP 128/66; PULSE 80
[2023-10-11 06:53] LABS: ALBUMIN 3.8 g/dL (3.5-5.0); ANION GAP 14.4 MEQ/L (5-15); BILIRUBIN,TOTAL 0.4 mg/dL (0.2-1.3); Calcium 9.4 mg/dL (8.4-10.2); Creatinine 1 0.75 mg/dL (0.52-1.04); EST GLOMERULAR FILTRATION RATE 103.8 ML/MIN; Potassium 4.6 mmol/L (3.5-5.1)
[2023-10-11 07:56] LABS: Absolute Neutrophil Ct (ANC) 8.14 x10^3/uL (1.56-6.13); BASOPHIL % 0.2 % (0.1-1.2); Basophil (Absolute #) 0.02 x10^3/uL (0.01-0.08); Eosinophil (Absolute #) 0 x10^3/uL (0.04-0.36); Hematocrit 33.3 % (34.1-44.9); Hemoglobin 10.5 g/dL (11.2-15.7); IMMATURE GRAN # 0.06 x10^3u/L (0.001-0.031); IMMATURE GRAN % 0.6 % (0.001-0.429); Lymphocyte (Absolute #) 0.88 x10^3/uL (1.18-3.74); Lymphocytes % 9.2 % (19.3-51.7); Mean Corpuscular Hemoglobin 25.5 pg (25.6-32.2); Mean Corpuscular Hgb Concent. 31.5 g/dL (32.2-35.5); Monocyte (Absolute #) 0.44 x10^3/uL (0.24-0.86); Monocytes % 4.6 % (4.7-12.5); Neutrophil % 85.4 % (34.0-71.1); Platelet Count 308 x10^3/uL (182-369); Red Blood Count 4.11 x10^6/uL (3.93-5.22); Red Cell Distribution Width 14.6 % (11.7-14.4); White Blood Count 9.5 x10^3/uL (3.98-10.04)
[2023-10-11 08:13] VITALS: O2SAT 93
== END 2023-10-11 08:22 | disposition home or self-care (01) ==
LOC: ED 04:22
DX: R11.2 Nausea with vomiting, unspecified (principal); K29.70 Gastritis, unspecified, without bleeding; E11.42 Type 2 diabetes mellitus with diabetic polyneuropathy; Z79.899 Other long term (current) drug therapy; Z72.0 Tobacco use; Z59.9 Problem related to housing and economic circumstances, unspecified
CPT/HCPCS: 36415; 80053; 80307; 81001; 83690; 84484; 85025; 96374; 96375; 99284; J2405; A9270-GY

== ENCOUNTER 2023-11-11 15:31 | Emergency (ER) | payer OTHER ==
--- NOTE | 2023-11-11 15:56 | ERPHSYRPT ---
- History of Present Illness Time Seen by Provider: 11/11/23 15:56 Historian: patient Exam Limitations: no limitations Physician History: The patient, with a history of chronic vomiting syndrome (CVS), presents with a several-day history of intractable vomiting, which has been ongoing since last Sunday. She reports an inability to tolerate oral intake, including water, which is immediately followed by vomiting. The patient describes the vomitus as large in volume, but denies the presence of blood. She also reports generalized body pain, with a focus on the chest area, which she attributes to the physical act of vomiting. The patient has not had a bowel movement in approximately three to four days and reports difficulty urinating. She denies any new medication use, fever, or diarrhea. She also denies any recent exposure to sick contacts. The patient's partner expresses concern about the patient's condition, noting a previous episode of severe hypokalemia that required hospitalization. The patient's partner also mentions her recent sobriety from methamphetamine since May, and her current living situation [place] resort to avoid triggers for substance use. The patient denies any use of marijuana or CBD products, and reports a shared daily cigarette use with her partner, which does not exceed one pack. She has not noticed any new symptoms or changes in her health since her last medical encounter. Timing/Duration: day(s) (5) Activities at Onset: rest Quality: sharpness, stabbing Abdominal Pain Onset Location: generalized abdomen Pain Radiation: no radiation Severity of Pain-Max: severe Severity of Pain-Current: severe Modifying Factors: Improves With: nothing. Worsens With: breathing, coughing, exercise, movement, palpation, vomiting Associated Symptoms: chest pain, loss of appetite, nausea, vomiting, weakness, No neck pain, No rash, No shortness of breath, No syncope Previous symptoms: same symptoms as today Allergies/Adverse Reactions: promethazine [From Phenergan] Allergy (Severe, Verified 11/14/23 07:51) Difficulty Breathing only with iv phenergan ketorolac [From Toradol] Allergy (Intermediate, Verified 11/14/23 07:51) Rash sulfamethoxazole [From Bactrim] Allergy (Intermediate, Verified 11/14/23 07:51) Itching tramadol Allergy (Intermediate, Verified 11/14/23 07:51) Rash trimethoprim [From Bactrim] Allergy (Intermediate, Verified 11/14/23 07:51) Itching diphenhydramine [From Benadryl] Adverse Reaction (Severe, Verified 11/14/23 07:51) Difficulty Swallowing only with iv benadryl Home Medications: Propranolol HCl [Inderal ] 30 mg PO BID 01/11/22 [History] Acetaminophen 500 mg [Tylenol Extra Strength 500 mg] 1,000 mg PO Q6H PRN PRN 11/14/23 [History] Buprenorphine HCl/Naloxone HCl [Buprenorphin-Naloxon 8-2 mg Sl] 1 each SL BID 11/14/23 [History] Buspirone HCl 5 mg [Buspar 5 mg] 15 mg PO TID 11/14/23 [History] Famotidine [Pepcid] 10 mg PO HS 11/14/23 [History] Insulin Degludec [Tresiba] 40 unit SQ UD 11/14/23 [History] Ondansetron ODT 4 MG [Zofran Odt 4 mg] 8 mg PO Q6H PRN PRN 11/14/23 [History] PANTOPRAZOLE 40 mg Tablet [Protonix 40MG Tablet] 40 mg PO DAILY 11/14/23 [History] Potassium Chloride [Klor-Con M20] 20 meq PO BID 11/14/23 [History] Prazosin HCl 1 mg PO HS 11/14/23 [History] Quetiapine Fumarate 100 mg [Seroquel 100 MG] 100 mg PO HS 11/14/23 [Histo ry] Hx Tetanus, Diphtheria Vaccination/Date Given: Yes Hx Influenza Vaccination/Date Given: No Hx Pneumococcal Vaccination/Date Given: No Travel Risk - Emerging Infectious Disease Are you exhibiting symptoms associated with any current EIDs: No - Review of Systems All Other Systems: Reviewed and Negative - Past Medical History Pertinent Past Medical History: Yes Neurological History: Migraines, Peripheral Neuropathy ENT History: Other Cardiac History: No Pertinent History Respiratory History: No Pertinent History Endocrine Medical History: Diabetes Type II Musculoskeletal History: No Pertinent History GI Medical History: Gallbladder Disease, Pancreatitis History: No Pertinent History Psycho-Social History: Anxiety, Depression Female Reproductive Disorders: No Pertinent History Other Medical History: carpal tunnel bilaterally. RLS - Past Surgical History Past Surgical History: Yes Neuro Surgical History: No Pertinent History Cardiac: No Pertinent History Respiratory: No Pertinent History Gastrointestinal: Cholecystectomy Genitourinary: No Pertinent History Musculoskeletal: No Pertinent History Female Surgical History: Section, Tubal Ligation Other Surgical History: 2 c sections-2nd had tubal as well Significant Family History: no pertinent family hx - Female History Hx Last Menstrual Period: last month Hx Now: No - Social History Smoking Status: Current every day smoker How long have you smoked: 21 yrs Exposure to second hand smoke: Yes Alcohol Use: None Drug Use: methamphetamines Patient Lives Alone: No - Social Determinants of Health Will the patient participate in the screening: Yes Do you worry about a steady place to live?: Yes In the past 12 months,have you had to go without utilities?: No Transportation Issues: No Has anyone in your support network made you feel unsafe?: No Have you or anyone in your house had to go without enough: No - Nursing Vital Signs Nursing Vital Signs: Initial Vital Signs Temperature 97.1 F 11/11/23 15:42 Pulse Rate 105 H 11/11/23 15:42 Respiratory Rate 20 11/11/23 15:42 Blood Pressure 127/88 11/11/23 15:42 O2 Sat by Pulse Oximetry 100 11/11/23 15:42 Pain Scale Pain Intensity 4 - Physical Exam General Appearance: mild distress Eye Exam: eyes nml inspection Ears, Nose, Throat Exam: normal ENT inspection Neck Exam: normal inspection, full range of motion Respiratory Exam: normal breath sounds, lungs clear, airway intact, No respiratory distress Cardiovascular Exam: regular rate/rhythm, capillary refill <2 sec, No edema Gastrointestinal/Abdomen Exam: soft, tenderness (diffuse), guarding, No distention, No rebound Neurologic Exam: alert, oriented x 3 Skin Exam: normal color, warm, dry SpO2 Interpretation: normal O2 Delivery: Room Air - Course Nursing assessment & vital signs reviewed: Yes EKG Interpreted by Me: RATE (97), Sinus Rhythm, NORMAL AXIS, NORMAL INTERVALS, NORMAL QRS, NORMAL ST-T - CT Exams Abdomen/Pelvis CT Interpretation: Tele-radiologist Report, Other (non obstructing renal calculus) Ordered Tests: Medication Summary Discontinued Medications Generic Name Dose Route Start Last Admin Trade Name Freq PRN Reason Stop Dose Admin Droperidol 1.25 mg 11/11/23 15:55 11/11/23 16:09 Droperidol 5 Mg/2 Ml Vial IV 11/11/23 15:56 1.25 mg STAT ONE Administration Droperidol Confirm 11/11/23 16:05 Droperidol 5 Mg/2 Ml Vial Administered 11/11/23 16:06 Dose 5 mg .ROUTE .STK-MED ONE Sodium Chloride 1,000 mls @ 999 mls/hr 11/11/23 15:53 11/11/23 17:10 Sodium Chloride 0.9% 1000 Ml IV 11/11/23 16:53 Infused .Q1H1M STA Infusion Sodium Chloride Confirm 11/11/23 16:05 Sodium Chloride 0.9% 1000 Ml Administered 11/11/23 16:06 Dose 1,000 mls @ ud .ROUTE .STK-MED ONE Potassium Chloride 20 meq in 100 mls @ 50 mls/hr 11/11/23 16:45 11/11/23 16:40 Potassium Chloride 20 Meq In Water 100ml IV 11/11/23 20:44 50 mls/hr Q2H HINA Administration Potassium Chloride Confirm 11/11/23 16:35 Potassium Chloride 20 Meq In Water 100ml Administered 11/11/23 16:36 Dose 100 mls @ ud IV .STK-MED ONE Lab/Rad Data: Laboratory Result Diagrams 11/11/23 16:00 11/11/23 16:00 Laboratory Results 11/11/23 11/11/23 11/11/23 Range/Units 16:00 16:00 16:00 WBC (3.98-10.04) x10^3/uL RBC (3.93-5.22) x10^6/uL Hgb (11.2-15.7) g/dL Hct (34.1-44.9) % MCV (79.4-94.8) fL MCH (25.6-32.2) pg MCHC (32.2-35.5) g/dL RDW (11.7-14.4) % Plt Count (182-369) x10^3/uL MPV (9.4-12.3) fL Gran % (34.0-71.1) % Immature Gran % (Auto) (0.001-0.429) % Nucleat RBC Rel Count (0.00-0.2) % Eos # (Auto) (0.04-0.36) x10^3/uL Immature Gran # (Auto) (0.001-0.031) x10^3u/L Absolute Lymphs (auto) (1.18-3.74) x10^3/uL Absolute Monos (auto) (0.24-0.86) x10^3/uL Absolute Nucleated RBC (0.00-0.012) x10^3u/L Lymphocytes % (19.3-51.7) % Monocytes % (4.7-12.5) % Eosinophils % (0.7-5.8) % Basophils % (0.1-1.2) % Absolute Granulocytes (1.56-6.13) x10^3/uL Basophils # (0.01-0.08) x10^3/uL Sodium (135-145) mmol/L Potassium (3.5-5.1) mmol/L Chloride (98-107) mmol/L Carbon Dioxide (22-30) mmol/L Anion Gap (5-15) MEQ/L BUN (7-17) mg/dL Creatinine (0.52-1.04) mg/dL Estimated GFR ML/MIN Glucose (74-106) mg/dL Hemoglobin A1c 6.96 H (4.5-6.0) % Calcium (8.4-10.2) mg/dL Total Bilirubin (0.2-1.3) mg/dL AST (14-36) U/L ALT (0-35) U/L Alkaline Phosphatase (38-126) U/L Troponin I (0.000-0.033) ng/mL Serum Total Protein (6.3-8.2) g/dL Albumin (3.5-5.0) g/dL Lipase (23-300) U/L TSH 3rd Generation 0.589 (0.470-4.680) mIU/L Serum HCG, Qual NEGATIVE (NEGATIVE) 11/11/23 11/11/23 11/11/23 Range/Units 16:00 16:00 16:00 WBC 7.9 (3.98-10.04) x10^3/uL RBC 5.03 (3.93-5.22) x10^6/uL Hgb 12.5 (11.2-15.7) g/dL Hct 40.5 (34.1-44.9) % MCV 80.5 (79.4-94.8) fL MCH 24.9 L (25.6-32.2) pg MCHC 30.9 L (32.2-35.5) g/dL RDW 14.6 H (11.7-14.4) % Plt Count 347 (182-369) x10^3/uL MPV 8.8 L (9.4-12.3) fL Gran % 60.6 (34.0-71.1) % Immature Gran % (Auto) 0.3 (0.001-0.429) % Nucleat RBC Rel Count 0.0 (0.00-0.2) % Eos # (Auto) 0.26 (0.04-0.36) x10^3/uL Immature Gran # (Auto) 0.02 (0.001-0.031) x10^3u/L Absolute Lymphs (auto) 1.86 (1.18-3.74) x10^3/uL Absolute Monos (auto) 0.91 H (0.24-0.86) x10^3/uL Absolute Nucleated RBC 0.00 (0.00-0.012) x10^3u/L Lymphocytes % 23.5 (19.3-51.7) % Monocytes % 11.5 (4.7-12.5) % Eosinophils % 3.3 (0.7-5.8) % Basophils % 0.8 (0.1-1.2) % Absolute Granulocytes 4.80 (1.56-6.13) x10^3/uL Basophils # 0.06 (0.01-0.08) x10^3/uL Sodium 138 (135-145) mmol/L Potassium 3.0 L* (3.5-5.1) mmol/L Chloride 101 (98-107) mmol/L Carbon Dioxide 25 (22-30) mmol/L Anion Gap 14.3 (5-15) MEQ/L BUN 18 H (7-17) mg/dL Creatinine 0.90 (0.52-1.04) mg/dL Estimated GFR 83.4 ML/MIN Glucose 103 (74-106) mg/dL Hemoglobin A1c (4.5-6.0) % Calcium 9.3 (8.4-10.2) mg/dL Total Bilirubin 0.40 (0.2-1.3) mg/dL AST 50 H (14-36) U/L ALT 33 (0-35) U/L Alkaline Phosphatase 88 (38-126) U/L Troponin I < 0.012 (0.000-0.033) ng/mL Serum Total Protein 8.2 (6.3-8.2) g/dL Albumin 4.5 (3.5-5.0) g/dL Lipase 93 (23-300) U/L TSH 3rd Generation (0.470-4.680) mIU/L Serum HCG, Qual (NEGATIVE) - Progress Progress: improved Progress Note: CT scan unremarkable other than non obstructing renal stone. Labs remarkable for hypokalemia, 40meq kcl given IV. NS bolus given for dehydration. Droperidol improved N/V and abd pain. Patient left AMA prior to potassium finishing. Counseled pt/family regarding: lab results, diagnosis, need for follow-up, rad results Medical Desision Making - Diagnostic Testing Diagnostic test were ordered, analyzed, and reviewed by me: Yes Radiological Interpretation: Interpreted by me, Reviewed by me, Teleradiologist Report - Risk of complications The pt has a mod risk of morbidity or mortality based on: Need for prescription drug management - Departure Departure Disposition: AMA Clinical Impression: Nausea & vomiting, Abdominal pain, Renal calculus, Type 2 diabetes mellitus, Hypokalemia Condition: Good Critical Care Time: No Referrals: AMEE LOERA MD [Primary Care Provider] - Follow up/PCP as directed
[2023-11-11] MEDS ORDERED: Sodium Chloride 0.9% 1000 ML 1,000 ML ONE (16:05)
[2023-11-11 16:08] LABS: BASOPHIL % 0.8 % (0.1-1.2); Basophil (Absolute #) 0.06 x10^3/uL (0.01-0.08); Eosinophil % 3.3 % (0.7-5.8); Eosinophil (Absolute #) 0.26 x10^3/uL (0.04-0.36); Hematocrit 40.5 % (34.1-44.9); Hemoglobin 12.5 g/dL (11.2-15.7); IMMATURE GRAN # 0.02 x10^3u/L (0.001-0.031); IMMATURE GRAN % 0.3 % (0.001-0.429); Lymphocyte (Absolute #) 1.86 x10^3/uL (1.18-3.74); Lymphocytes % 23.5 % (19.3-51.7); Mean Cell Volume 80.5 fL (79.4-94.8); Mean Corpuscular Hemoglobin 24.9 pg (25.6-32.2); Mean Corpuscular Hgb Concent. 30.9 g/dL (32.2-35.5); Mean Platelet Volume 8.8 fL (9.4-12.3); Monocyte (Absolute #) 0.91 x10^3/uL (0.24-0.86); Monocytes % 11.5 % (4.7-12.5); Neutrophil % 60.6 % (34.0-71.1); Platelet Count 347 x10^3/uL (182-369); Red Blood Count 5.03 x10^6/uL (3.93-5.22); Red Cell Distribution Width 14.6 % (11.7-14.4); White Blood Count 7.9 x10^3/uL (3.98-10.04)
[2023-11-11] MEDS: Sodium Chloride 0.9% 1000 ML 1,000 ML IV STA (16:08)
[2023-11-11 16:20] LABS: HCG SERUM TEST NEGATIVE (NEGATIVE)
[2023-11-11 16:23] LABS: ALBUMIN 4.5 g/dL (3.5-5.0); ANION GAP 14.3 MEQ/L (5-15); BILIRUBIN,TOTAL 0.4 mg/dL (0.2-1.3); Calcium 9.3 mg/dL (8.4-10.2); Creatinine 1 0.9 mg/dL (0.52-1.04); EST GLOMERULAR FILTRATION RATE 83.4 ML/MIN; Total Protein 8.2 g/dL (6.3-8.2)
[2023-11-11 16:29] VITALS: BP 127/88; PULSE 105; RESP 20; TEMP 97.1; O2SAT 100
[2023-11-11] MEDS ORDERED: POTASSIUM CHLORIDE 20 mEq IN WATER 100ML 100 ML IV ONE (16:35)
[2023-11-11] MEDS: POTASSIUM CHLORIDE 20 mEq IN WATER 100ML 20 MEQ/100 ML BAG IV SCH (16:40)
--- NOTE | 2023-11-11 17:45 | XRAY ---
CLINICAL HISTORY: abd pain COMPARISON: CT ABDOMEN AND PELVIS W CONTRAST dated 01/17/2023. TECHNIQUE: Non-contrast CT of the abdomen and pelvis was performed, with the following protocol: axial images and reconstructed coronal and sagittal images. No intravenous contrast was administered. One of the following dose reduction techniques was utilized for this exam: Automated exposure control, adjustment of the mA and/or kV according to patient size, and use of iterative reconstruction. FINDINGS: Abdomen: Liver: Normal in size, shape, and density. No focal lesions, cysts, or masses were identified. Gallbladder and Biliary System: surgically absent. Pancreas: Pancreatic head, body, and tail are visualized and appear normal in size and density. No pancreatic masses or calcifications were noted. Spleen: Normal in size, shape, and density. No splenic lesions or masses were identified. Kidneys and Adrenal Glands: Both kidneys are normal in size, shape, and position. Cortical thickness is within normal limits. The left kidney shows calculus measuring 3mm at lower pole, however no hydronephrosis seen. No renal calculi or hydronephrosis on right side. Adrenal glands are unremarkable. Pelvis: Urinary Bladder: Partially distended, Normal in contour and wall thickness. No intraluminal lesions. Uterus: Normal in size and contour. No masses or abnormal thickening. Ovaries: Not well visualized but no gross abnormalities noted. Vagina: Normal in contour and wall thickness. Cervix: No evidence of mass or abnormal thickening. Peritoneal and Retroperitoneal Structures: No free fluid or abnormal fluid collections were identified within the abdomen or pelvis. No lymphadenopathy was noted. Bowel: The visualized bowel loops are normal in caliber and appearance. No evidence of bowel obstruction or wall thickening. Normal appearing appendix. Bones and Soft Tissues: L5-S1 intervertebral disc level shows reduced height with Grade 1 retrolisthesis of L5 over S1. Rest Pelvic bones and soft tissues are unremarkable. No fractures or abnormal masses were identified. IMPRESSION: 1. Non-obstructing left renal calculus. 2. Lumbar Spondylolisthesis Grade 1 as described. 3. Rest unremarkable non-contrast CT abdomen and pelvis. Clinical correlation is recommended for further evaluation. 4. Comparison with the previous CT dated 01/17/2023 shows no significant interval changes. The degenerative spine changes have relatively progressed. Electronically Signed by: Radha Coppola MD. (11/11/2023 17:41:30 EDT)
== END 2023-11-11 18:35 | disposition left against medical advice (07) ==
LOC: ED 15:31
DX: R11.2 Nausea with vomiting, unspecified (principal); R10.9 Unspecified abdominal pain; N20.0 Calculus of kidney; E11.42 Type 2 diabetes mellitus with diabetic polyneuropathy; E87.6 Hypokalemia; Z79.899 Other long term (current) drug therapy; Z72.0 Tobacco use; Z59.811 Housing instability, housed, with risk of homelessness
CPT/HCPCS: 36000; 36415; 74176; 80053; 83036; 83690; 84443; 84484; 84703; 85025; 93005; 96374; 99284; J3480

== ENCOUNTER 2023-11-14 07:35 | Observation (INO) | payer OTHER ==
--- NOTE | 2023-11-14 08:09 | ERPHSYRPT ---
- History of Present Illness Time Seen by Provider: 11/14/23 07:52 Historian: patient Exam Limitations: no limitations Patient Subjective Stated Complaint: vomiting Triage Nursing Assessment: pt brought self to ER due to vomiting. Pt states symptoms started 7 days ago. states, "I only experience pain when I am puking." Last BM 11/13/2023. bowel sounds present in all 4 quads, abdomen soft, round. denies tenderness, vitals sounds wnl, skin w/n/d. Physician History: Pt states she has had nausea & vomiting for the past week with epigastric pain when vomiting 7/10 in severity. LBM was yesterday & wnl. Pt denies shortness of air, fever, headache, cough. Allergies/Adverse Reactions: promethazine [From Phenergan] Allergy (Severe, Verified 11/14/23 07:51) Difficulty Breathing only with iv phenergan ketorolac [From Toradol] Allergy (Intermediate, Verified 11/14/23 07:51) Rash sulfamethoxazole [From Bactrim] Allergy (Intermediate, Verified 11/14/23 07:51) Itching tramadol Allergy (Intermediate, Verified 11/14/23 07:51) Rash trimethoprim [From Bactrim] Allergy (Intermediate, Verified 11/14/23 07:51) Itching diphenhydramine [From Benadryl] Adverse Reaction (Severe, Verified 11/14/23 07:51) Difficulty Swallowing only with iv benadryl Home Medications: Propranolol HCl [Inderal ] 60 mg PO BID 01/11/22 [History] Hx Tetanus, Diphtheria Vaccination/Date Given: Yes Hx Influenza Vaccination/Date Given: No Hx Pneumococcal Vaccination/Date Given: No Travel Risk - International Travel Have you traveled outside of the country in past 3 weeks: No - Emerging Infectious Disease Are you exhibiting symptoms associated with any current EIDs: No - Review of Systems Constitutional: No Fever Respiratory: No Cough, No Dyspnea Abdominal/Gastrointestinal: Abdominal Pain, Nausea, Vomiting, No Diarrhea Genitourinary Symptoms: No Dysuria Neurological: No Headache - Past Medical History Pertinent Past Medical History: Yes Neurological History: Migraines, Peripheral Neuropathy ENT History: Other Cardiac History: No Pertinent History Respiratory History: No Pertinent History Endocrine Medical History: Diabetes Type II Musculoskeletal History: No Pertinent History GI Medical History: Gallbladder Disease, Pancreatitis History: No Pertinent History Psycho-Social History: Anxiety, Depression Female Reproductive Disorders: No Pertinent History Other Medical History: carpal tunnel bilaterally. RLS - Past Surgical History Past Surgical History: Yes Neuro Surgical History: No Pertinent History Cardiac: No Pertinent History Respiratory: No Pertinent History Gastrointestinal: Cholecystectomy Genitourinary: No Pertinent History Musculoskeletal: No Pertinent History Female Surgical History: Section, Tubal Ligation Other Surgical History: 2 c sections-2nd had tubal as well Significant Family History: no pertinent family hx - Female History Hx Last Menstrual Period: last month Hx Now: No - Social History Smoking Status: Current every day smoker How long have you smoked: 21 yrs Exposure to second hand smoke: Yes Alcohol Use: None Drug Use: methamphetamines Patient Lives Alone: No - Social Determinants of Health Will the patient participate in the screening: Yes Do you worry about a steady place to live?: Yes Do you have any problems with any of the following?: No known problems In the past 12 months,have you had to go without utilities?: No Transportation Issues: No Has anyone in your support network made you feel unsafe?: No Have you or anyone in your house had to go without enough: No - Nursing Vital Signs Nursing Vital Signs: Initial Vital Signs Temperature 97.8 F 11/14/23 07:42 Pulse Rate 99 H 11/14/23 07:42 Blood Pressure 134/89 11/14/23 07:42 O2 Sat by Pulse Oximetry 100 11/14/23 07:42 Pain Scale Pain Intensity 0 - Physical Exam General Appearance: alert Eye Exam: PERRL/EOMI Ears, Nose, Throat Exam: TMs normal, pharynx normal Neck Exam: normal inspection Respiratory Exam: lungs clear, airway intact Cardiovascular Exam: normal heart sounds Gastrointestinal/Abdomen Exam: normal bowel sounds Extremity Exam: No pedal edema Neurologic Exam: alert, cooperative Skin Exam: warm, dry SpO2 Interpretation: normal SpO2: 100 O2 Delivery: Room Air - Course Nursing assessment & vital signs reviewed: Yes - CT Exams Abdomen/Pelvis CT Interpretation: Discussed w/radiologist (No change compared to CT 3 days ago. Again nonobstructive left renal micro-calculus and L5-S1 degenerative disc disease. No new/acute findings on this noncontrast exam.) Ordered Tests: Active Orders 24 hr Category Date Time Status IV Insertion STAT Care 11/14/23 08:07 Active Telemetry q4h Care 11/14/23 08:48 Active Telemetry q4h Care 11/14/23 12:15 Active ABDOMEN AND PELVIS W/0 CONTRAS [CT] Stat Exams 11/14/23 08:08 Completed AMYLASE Stat Lab 11/14/23 08:00 Completed BMP Stat Lab 11/14/23 11:16 Completed CBC W DIFF Stat Lab 11/14/23 08:00 Completed CMP Stat Lab 11/14/23 08:00 Completed LIPASE Stat Lab 11/14/23 08:00 Completed MAGNESIUM Stat Lab 11/14/23 08:00 Completed UA W/RFX UR CULTURE Stat Lab 11/14/23 08:00 Completed Transfer Order Routine Transfer 11/14/23 Ordered Medication Summary Generic Name Dose Route Start Last Admin Trade Name Freq PRN Reason Stop Dose Admin Sodium Chloride 1,000 mls @ 100 mls/hr 11/14/23 09:30 11/14/23 09:29 Sodium Chloride 0.9% 1000 Ml IV 12/14/23 09:29 100 mls/hr .Q10H HINA Administration Potassium Chloride 20 meq in 100 mls @ 50 mls/hr 11/14/23 12:15 Potassium Chloride 20 Meq In Water 100ml IV 11/14/23 14:14 STAT ONE Discontinued Medications Generic Name Dose Route Start Last Admin Trade Name Freq PRN Reason Stop Dose Admin Sodium Chloride 1,000 mls @ 999 mls/hr 11/14/23 08:07 11/14/23 09:17 Sodium Chloride 0.9% 1000 Ml IV 11/14/23 09:07 Infused .Q1H1M STA Infusion Acetaminophen 1,000 mg in 100 mls @ 400 mls/hr 11/14/23 08:10 11/14/23 08:16 Ofirmev IV 11/14/23 08:24 400 mls/hr 1HRPRIOR ONE Administration Acetaminophen Confirm 11/14/23 08:14 Ofirmev Administered 11/14/23 08:15 Dose 100 mls @ ud IV .STK-MED ONE Sodium Chloride Confirm 11/14/23 08:14 Sodium Chloride 0.9% 1000 Ml Administered 11/14/23 08:15 Dose 1,000 mls @ ud .ROUTE .STK-MED ONE Potassium Chloride 20 meq in 100 mls @ 50 mls/hr 11/14/23 08:48 11/14/23 08:53 Potassium Chloride 20 Meq In Water 100ml IV 11/14/23 10:47 50 mls/hr STAT ONE Administration Potassium Chloride Confirm 11/14/23 08:53 Potassium Chloride 20 Meq In Water 100ml Administered 11/14/23 08:54 Dose 100 mls @ ud IV .STK-MED ONE Potassium Chloride Confirm 11/14/23 12:22 Potassium Chloride 20 Meq In Water 100ml Administered 11/14/23 12:23 Dose 100 mls @ ud IV .STK-MED ONE Ondansetron HCl 4 mg 11/14/23 08:07 11/14/23 08:15 Ondansetron Hcl 4 Mg/2 Ml Vial IV 11/14/23 08:08 4 mg STAT ONE Administration Ondansetron HCl Confirm 11/14/23 08:14 Ondansetron Hcl 4 Mg/2 Ml Vial Administered 11/14/23 08:15 Dose 4 mg .ROUTE .STK-MED ONE Ondansetron HCl 4 mg 11/14/23 10:26 11/14/23 10:30 Ondansetron Hcl 4 Mg/2 Ml Vial IV 11/14/23 10:27 4 mg STAT ONE Administration Ondansetron HCl Confirm 11/14/23 10:30 Ondansetron Hcl 4 Mg/2 Ml Vial Administered 11/14/23 10:31 Dose 4 mg .ROUTE .STK-MED ONE Prochlorperazine Edisylate 10 mg 11/14/23 08:54 11/14/23 08:56 Prochlorperazine Edisylate 10 Mg/2 Ml Vial IV 11/14/23 08:55 10 mg STAT ONE Administration Prochlorperazine Edisylate Confirm 11/14/23 08:56 Prochlorperazine Edisylate 10 Mg/2 Ml Vial Administered 11/14/23 08:57 Dose 10 mg .ROUTE .STK-MED ONE Lab/Rad Data: Laboratory Result Diagrams 11/14/23 08:00 11/14/23 11:16 Laboratory Results 11/14/23 11/14/23 11/14/23 Range/Units 11:16 08:00 08:00 WBC 9.2 (3.98-10.04) x10^3/uL RBC 5.19 (3.93-5.22) x10^6/uL Hgb 13.0 (11.2-15.7) g/dL Hct 41.3 (34.1-44.9) % MCV 79.6 (79.4-94.8) fL MCH 25.0 L (25.6-32.2) pg MCHC 31.5 L (32.2-35.5) g/dL RDW 14.8 H (11.7-14.4) % Plt Count 390 H (182-369) x10^3/uL MPV 9.4 (9.4-12.3) fL Gran % 76.1 H (34.0-71.1) % Immature Gran % (Auto) 0.2 (0.001-0.429) % Nucleat RBC Rel Count 0.0 (0.00-0.2) % Eos # (Auto) 0.03 L (0.04-0.36) x10^3/uL Immature Gran # (Auto) 0.02 (0.001-0.031) x10^3u/L Absolute Lymphs (auto) 1.42 (1.18-3.74) x10^3/uL Absolute Monos (auto) 0.66 (0.24-0.86) x10^3/uL Absolute Nucleated RBC 0.00 (0.00-0.012) x10^3u/L Lymphocytes % 15.5 L (19.3-51.7) % Monocytes % 7.2 (4.7-12.5) % Eosinophils % 0.3 L (0.7-5.8) % Basophils % 0.7 (0.1-1.2) % Absolute Granulocytes 6.98 H (1.56-6.13) x10^3/uL Basophils # 0.06 (0.01-0.08) x10^3/uL Sodium 138 139 (135-145) mmol/L Potassium 3.3 L 3.3 L (3.5-5.1) mmol/L Chloride 101 98 (98-107) mmol/L Carbon Dioxide 27 26 (22-30) mmol/L Anion Gap 13.5 17.9 H (5-15) MEQ/L BUN 12 12 (7-17) mg/dL Creatinine 0.75 0.88 (0.52-1.04) mg/dL Estimated GFR 103.8 85.7 ML/MIN Glucose 155 H 201 H (74-106) mg/dL Calcium 9.7 10.4 H (8.4-10.2) mg/dL Magnesium 1.8 (1.6-2.3) mg/dL Total Bilirubin 0.30 (0.2-1.3) mg/dL AST 36 (14-36) U/L ALT 30 (0-35) U/L Alkaline Phosphatase 79 (38-126) U/L Serum Total Protein 8.9 H (6.3-8.2) g/dL Albumin 4.8 (3.5-5.0) g/dL Amylase 89 (30-110) U/L Lipase 98 (23-300) U/L Urine Color (Yellow) Urine Appearance (Clear) Urine pH (4.6-8.0) Ur Specific [place] (1.005-1.030) Urine Protein (Negative) Urine Glucose (UA) (Negative) mg/dL Urine Ketones (Negative) Urine Blood (Negative) Urine Nitrite (Negative) Urine Bilirubin (Negative) Urine Urobilinogen (0.2) mg/dL Ur Leukocyte Esterase (Negative) U Hyaline Cast (Auto) (0-2) /LPF Urine Microscopic RBC (0-5) /HPF Urine Microscopic WBC (0-5) /HPF Ur Epithelial Cells (None Seen) /HPF Urine Bacteria (None Seen) /HPF Urine Culture Reflexed (NO) 11/14/23 Range/Units 08:00 WBC (3.98-10.04) x10^3/uL RBC (3.93-5.22) x10^6/uL Hgb (11.2-15.7) g/dL Hct (34.1-44.9) % MCV (79.4-94.8) fL MCH (25.6-32.2) pg MCHC (32.2-35.5) g/dL RDW (11.7-14.4) % Plt Count (182-369) x10^3/uL MPV (9.4-12.3) fL Gran % (34.0-71.1) % Immature Gran % (Auto) (0.001-0.429) % Nucleat RBC Rel Count (0.00-0.2) % Eos # (Auto) (0.04-0.36) x10^3/uL Immature Gran # (Auto) (0.001-0.031) x10^3u/L Absolute Lymphs (auto) (1.18-3.74) x10^3/uL Absolute Monos (auto) (0.24-0.86) x10^3/uL Absolute Nucleated RBC (0.00-0.012) x10^3u/L Lymphocytes % (19.3-51.7) % Monocytes % (4.7-12.5) % Eosinophils % (0.7-5.8) % Basophils % (0.1-1.2) % Absolute Granulocytes (1.56-6.13) x10^3/uL Basophils # (0.01-0.08) x10^3/uL Sodium (135-145) mmol/L Potassium (3.5-5.1) mmol/L Chloride (98-107) mmol/L Carbon Dioxide (22-30) mmol/L Anion Gap (5-15) MEQ/L BUN (7-17) mg/dL Creatinine (0.52-1.04) mg/dL Estimated GFR ML/MIN Glucose (74-106) mg/dL Calcium (8.4-10.2) mg/dL Magnesium (1.6-2.3) mg/dL Total Bilirubin (0.2-1.3) mg/dL AST (14-36) U/L ALT (0-35) U/L Alkaline Phosphatase (38-126) U/L Serum Total Protein (6.3-8.2) g/dL Albumin (3.5-5.0) g/dL Amylase (30-110) U/L Lipase (23-300) U/L Urine Color Yellow (Yellow) Urine Appearance Clear (Clear) Urine pH 6.0 (4.6-8.0) Ur Specific [place] 1.020 (1.005-1.030) Urine Protein Trace A (Negative) Urine Glucose (UA) Negative (Negative) mg/dL Urine Ketones >=160 A (Negative) Urine Blood Negative (Negative) Urine Nitrite Negative (Negative) Urine Bilirubin Negative (Negative) Urine Urobilinogen 1.0 A (0.2) mg/dL Ur Leukocyte Esterase Negative (Negative) U Hyaline Cast (Auto) NONE SEEN (0-2) /LPF Urine Microscopic RBC 3-5 (0-5) /HPF Urine Microscopic WBC 0-2 (0-5) /HPF Ur Epithelial Cells Few (None Seen) /HPF Urine Bacteria Rare A (None Seen) /HPF Urine Culture Reflexed NO (NO) - Progress Progress: unchanged Discussed with : Ramesh (Spoke with & discussed pt with Dr. Mary(~1200) - obs) Counseled pt/family regarding: lab results, diagnosis, rad results Medical Desision Making - Diagnostic Testing Diagnostic test were ordered, analyzed, and reviewed by me: Yes Radiological Interpretation: Discussed w/ radiologist - Departure Departure Disposition: Observation Clinical Impression: Abdominal pain, Nausea & vomiting, Hypokalemia Condition: Stable Critical Care Time: No Referrals: AMEE LOERA MD [Primary Care Provider] - Follow up/PCP as directed
[2023-11-14] MEDS ORDERED: OFIRMEV 100 ML IV ONE (08:14)
[2023-11-14] MEDS ORDERED: Sodium Chloride 0.9% 1000 ML 1,000 ML ONE ×2 (08:14→09:29)
[2023-11-14] MEDS ORDERED: Zofran 4 MG/2 ML VIAL ONE ×2 (08:14→10:30)
[2023-11-14] MEDS: Zofran 4 MG/2 ML VIAL IV ONE ×2 (08:15→10:30)
[2023-11-14] MEDS: Sodium Chloride 0.9% 1000 ML 1,000 ML IV STA (08:15)
[2023-11-14] MEDS: OFIRMEV 1,000 MG/100 ML ML IV ONE (08:16)
[2023-11-14 08:27] LABS: Absolute Neutrophil Ct (ANC) 6.98 x10^3/uL (1.56-6.13); BASOPHIL % 0.7 % (0.1-1.2); Basophil (Absolute #) 0.06 x10^3/uL (0.01-0.08); Eosinophil % 0.3 % (0.7-5.8); Eosinophil (Absolute #) 0.03 x10^3/uL (0.04-0.36); Hematocrit 41.3 % (34.1-44.9); IMMATURE GRAN # 0.02 x10^3u/L (0.001-0.031); IMMATURE GRAN % 0.2 % (0.001-0.429); Lymphocyte (Absolute #) 1.42 x10^3/uL (1.18-3.74); Lymphocytes % 15.5 % (19.3-51.7); Mean Cell Volume 79.6 fL (79.4-94.8); Mean Corpuscular Hgb Concent. 31.5 g/dL (32.2-35.5); Mean Platelet Volume 9.4 fL (9.4-12.3); Monocyte (Absolute #) 0.66 x10^3/uL (0.24-0.86); Monocytes % 7.2 % (4.7-12.5); Neutrophil % 76.1 % (34.0-71.1); Platelet Count 390 x10^3/uL (182-369); Red Blood Count 5.19 x10^6/uL (3.93-5.22); Red Cell Distribution Width 14.8 % (11.7-14.4); White Blood Count 9.2 x10^3/uL (3.98-10.04)
[2023-11-14 08:38] LABS: ALBUMIN 4.8 g/dL (3.5-5.0); ANION GAP 17.9 MEQ/L (5-15); BILIRUBIN,TOTAL 0.3 mg/dL (0.2-1.3); Calcium 10.4 mg/dL (8.4-10.2); Creatinine 1 0.88 mg/dL (0.52-1.04); EST GLOMERULAR FILTRATION RATE 85.7 ML/MIN; MAGNESIUM 1.8 mg/dL (1.6-2.3); Potassium 3.3 mmol/L (3.5-5.1); Total Protein 8.9 g/dL (6.3-8.2)
[2023-11-14 08:39] LABS: Appearance Clear (Clear); Bacteria Rare /HPF (None Seen); Bilirubin Negative (Negative); Blood Negative (Negative); Epithelial Cells Few /HPF (None Seen); Glucose, Urine Negative (Negative); Hyaline Casts NONE SEEN /LPF (0-2); Ketones >=160 (Negative); Leukocyte Esterase Negative (Negative); Nitrite Negative (Negative); Protein,Urine Dip Trace (Negative); WBC 0-2 /HPF (0-5)
[2023-11-14 08:40] LABS: ADD URINE CULTURE? NO (NO)
[2023-11-14] MEDS: POTASSIUM CHLORIDE 20 mEq IN WATER 100ML 20 MEQ/100 ML BAG IV ONE ×2 (08:53→12:25)
[2023-11-14] MEDS ORDERED: POTASSIUM CHLORIDE 20 mEq IN WATER 100ML 100 ML IV ONE ×2 (08:53→12:22)
[2023-11-14] MEDS ORDERED: Compazine 10 MG/2 ML ONE (08:56)
[2023-11-14] MEDS: Compazine 10 MG/2 ML IV ONE (08:56)
--- NOTE | 2023-11-14 09:15 | XRAY ---
Indication: Abdomen pain and vomiting 4 days. Multiple contiguous axial images obtained through the abdomen and pelvis without contrast. Comparison: November 11, 2023 Lung bases remain clear. Heart not enlarged. Noncontrasted stomach and bowel loops are nonobstructed. Normal appendix. Again mild scattered fecal debris in the descending, sigmoid, and rectum. Again nonobstructing left renal micro-calculus and cholecystectomy. No free fluid/air. Remaining liver, pancreas, spleen, adrenal glands, kidneys, ureters, bladder, uterus, and aorta are unremarkable for noncontrast exam. Osseous structures intact with stable mild L5-S1 degenerative disc. Impression: No change compared to CT 3 days ago. Again nonobstructing left renal micro-calculus and L5-S1 degenerative disc disease. No new/acute findings on this noncontrast exam.
[2023-11-14] MEDS: Sodium Chloride 0.9% 1000 ML 1,000 ML IV SCH ×2 (09:29→17:19)
[2023-11-14 11:39] LABS: ANION GAP 13.5 MEQ/L (5-15); Calcium 9.7 mg/dL (8.4-10.2); Creatinine 1 0.75 mg/dL (0.52-1.04); EST GLOMERULAR FILTRATION RATE 103.8 ML/MIN; Potassium 3.3 mmol/L (3.5-5.1)
[2023-11-14] MEDS ORDERED: Zofran 4 MG/2 ML VIAL IV PRN (13:18)
--- NOTE | 2023-11-14 13:26 | PCM.HP ---
History of Present Illness - Chief Complaint Chief Complaint: Vomiting; Abdominal pain; hypokalemia Date: 11/14/23 History of Present Illness: is a 38 year old female with pmhx of migraines, type II DM, pancreatitis, anxiety, depression, and RLS. She states she is under a large amount of stress as she is living in a camper and has to have a house to get her children back. Psych consult ordered. Pt states she has had nausea & vomiting for the past week with epigastric pain when vomiting 7/10 in severity. LBM was yesterday & wnl. Pt denies shortness of breath, fever, headache, cough. CT abd pelvis negative for acute concern. K+ 3.3 and replaced. IVF started and nausea medication PRN ordered. Lipase and A1C pending. - Review of Systems Constitutional: No Fever, No Chills Eyes: No Symptoms Ears, Nose, & Throat: No Symptoms Respiratory: No Cough, No Short Of Breath Cardiac: No Chest Pain, No Edema, No Syncope Abdominal/Gastrointestinal: Abdominal Pain, Nausea, Vomiting, No Diarrhea Genitourinary Symptoms: No Dysuria Musculoskeletal: No Back Pain, No Neck Pain Skin: No Rash Neurological: No Dizziness, No Focal Weakness, No Sensory Changes Psychological: No Symptoms Endocrine: No Symptoms Hematologic/Lymphatic: No Symptoms Immunological/Allergic: No Symptoms Medications & Allergies Home Medications: Home Medication List Propranolol HCl [Inderal ] 60 mg PO BID 01/11/22 [History Confirmed 11/14/23] Blood Sugar Diagnostic [Accu-Chek Guide Test Strip] 1 each ACHS #30 strip 01/15/23 [Rx Confirmed 11/14/23] Lancets [Accu-Chek Safe-T-Pro Plus] 1 each ACHS #100 stick 01/15/23 [Rx Confirmed 11/14/23] Ondansetron ODT 4 MG [Zofran Odt 4 mg] 8 mg PO Q6H PRN PRN 11/14/23 [History Confirmed 11/14/23] PANTOPRAZOLE 40 mg Tablet [Protonix 40MG Tablet] 40 mg PO DAILY 11/14/23 [History Confirmed 11/14/23] Allergies/Adverse Reactions: Allergies Allergy/AdvReac Type Severity Reaction Status Date / Time promethazine [From Phenergan] Allergy Severe Difficulty Verified 11/14/23 07:51 Breathing ketorolac [From Toradol] Allergy Intermediate Rash Verified 11/14/23 07:51 sulfamethoxazole Allergy Intermediate Itching Verified 11/14/23 07:51 [From Bactrim] tramadol Allergy Intermediate Rash Verified 11/14/23 07:51 trimethoprim [From Bactrim] Allergy Intermediate Itching Verified 11/14/23 07:51 diphenhydramine AdvReac Severe Difficulty Verified 11/14/23 07:51 [From Benadryl] Swallowing - Past Medical History Past Medical History: Yes Neurological History: Migraines, Peripheral Neuropathy ENT History: Other Cardiac History: No Pertinent History Respiratory History: No Pertinent History Endocrine Medical History: Diabetes Type II Musculoskelatal History: No Pertinent History GI Medical History: Gallbladder Disease, Pancreatitis History: No Pertinent History Pyscho-Social History: Anxiety, Depression Reproductive Disorders: No Pertinent History Comment: carpal tunnel bilaterally. RLS - Female History Hx Last Menstrual Period: last month Are you now?: No - Past Surgical History Past Surgical History: Yes Neuro Surgical History: No Pertinent History Cardiac History: No Pertinent History Respiratory Surgery: No Pertinent History GI Surgical History: Cholecystectomy Genitourinary Surgical Hx: No Pertinent History Musculskeletal Surgical Hx: No Pertinent History Female Surgical History: Section, Tubal Ligation Other Surgical History: 2 c sections-2nd had tubal as well Significant Family History: no pertinent family hx - Social History Smoking Status: Current every day smoker How long have you smoked: 21 yrs Exposure to second hand smoke: Yes Alcohol: None Drug Use: methamphetamines - Social Determinants of Health Will the patient participate in the screening: Yes Do you worry about a steady place to live?: Yes Do you have any problems with any of the following?: No known problems In the past 12 months,have you had to go without utilities?: No Have you or anyone in your house had to go without enough: No Transportation Issues: No Has anyone in your support network made you feel unsafe?: No Does the patient want assistance with any of the above?: No Comment: HAVE CAR BUT NOT ENOUGH [employer] FOR GAS AT TIMES. LIVING WITH [id number] AT PRESENT AT [address] [place] [address] IN [facility]. WORRY ABOUT LIVING SITUATION. 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 HAS FAMILY SUPPORT BUT STILL WORRY ABOUT $. - Physical Exam Vital Signs: Vital Signs - 24 hr Temp Pulse Resp BP BP Pulse Ox 11/14/23 13:00 88 18 118/73 11/14/23 12:45 91 H 20 124/72 11/14/23 12:30 86 18 129/71 11/14/23 12:25 100 11/14/23 12:15 107 H 14 158/75 11/14/23 12:00 92 H 22 159/77 11/14/23 11:45 85 18 162/70 98 11/14/23 11:32 83 20 150/71 98 11/14/23 11:31 79 20 98 11/14/23 11:30 80 21 98 11/14/23 11:20 62 18 99 11/14/23 11:17 78 20 99 11/14/23 11:00 67 17 149/70 100 11/14/23 10:45 71 18 156/88 99 11/14/23 10:30 76 18 158/83 100 11/14/23 10:16 88 18 148/81 99 11/14/23 10:00 108 H 15 153/69 100 11/14/23 09:45 66 21 156/78 96 11/14/23 09:31 57 L 19 163/67 99 11/14/23 09:16 66 18 165/69 99 11/14/23 09:00 63 16 135/74 98 11/14/23 08:45 90 17 156/82 100 11/14/23 08:33 83 19 146/77 100 11/14/23 08:16 137/101 11/14/23 08:01 105 H 12 176/99 11/14/23 07:45 79 20 134/89 11/14/23 07:42 97.8 F 99 H 134/89 100 General Appearance: no apparent distress, alert Neurologic Exam: alert, oriented x 3, cooperative, normal mood/affect, nml cerebellar function, nml station & gait, sensation nml, No motor deficits Eye Exam: PERRL/EOMI, eyes nml inspection Ears, Nose, Throat Exam: normal ENT inspection, TMs normal, pharynx normal, m oist mucous membranes Neck Exam: normal inspection, non-tender, supple, full range of motion Respiratory Exam: normal breath sounds, lungs clear, No respiratory distress Cardiovascular Exam: regular rate/rhythm, normal heart sounds, normal peripheral pulses Gastrointestinal/Abdomen Exam: soft, normal bowel sounds, tenderness (generalized), No mass Back Exam: normal inspection, normal range of motion, No CVA tenderness, No vertebral tenderness Extremity Exam: normal inspection, normal range of motion, pelvis stable Skin Exam: normal color, warm, dry, No rash Lymphatic Exam: No adenopathy Results - Labs Lab/Micro Results: Lab Results-Last 24 Hours 11/14/23 11/14/23 11/14/23 Range/Units 08:00 08:00 08:00 WBC 9.2 (3.98-10.04) x10^3/uL RBC 5.19 (3.93-5.22) x10^6/uL Hgb 13.0 (11.2-15.7) g/dL Hct 41.3 (34.1-44.9) % MCV 79.6 (79.4-94.8) fL MCH 25.0 L (25.6-32.2) pg MCHC 31.5 L (32.2-35.5) g/dL RDW 14.8 H (11.7-14.4) % Plt Count 390 H (182-369) x10^3/uL MPV 9.4 (9.4-12.3) fL Gran % 76.1 H (34.0-71.1) % Immature Gran % (Auto) 0.2 (0.001-0.429) % Nucleat RBC Rel Count 0.0 (0.00-0.2) % Eos # (Auto) 0.03 L (0.04-0.36) x10^3/uL Immature Gran # (Auto) 0.02 (0.001-0.031) x10^3u/L Absolute Lymphs (auto) 1.42 (1.18-3.74) x10^3/uL Absolute Monos (auto) 0.66 (0.24-0.86) x10^3/uL Absolute Nucleated RBC 0.00 (0.00-0.012) x10^3u/L Lymphocytes % 15.5 L (19.3-51.7) % Monocytes % 7.2 (4.7-12.5) % Eosinophils % 0.3 L (0.7-5.8) % Basophils % 0.7 (0.1-1.2) % Absolute Granulocytes 6.98 H (1.56-6.13) x10^3/uL Basophils # 0.06 (0.01-0.08) x10^3/uL Sodium 139 (135-145) mmol/L Potassium 3.3 L (3.5-5.1) mmol/L Chloride 98 (98-107) mmol/L Carbon Dioxide 26 (22-30) mmol/L Anion Gap 17.9 H (5-15) MEQ/L BUN 12 (7-17) mg/dL Creatinine 0.88 (0.52-1.04) mg/dL Estimated GFR 85.7 ML/MIN Glucose 201 H (74-106) mg/dL Calcium 10.4 H (8.4-10.2) mg/dL Magnesium 1.8 (1.6-2.3) mg/dL Total Bilirubin 0.30 (0.2-1.3) mg/dL AST 36 (14-36) U/L ALT 30 (0-35) U/L Alkaline Phosphatase 79 (38-126) U/L Serum Total Protein 8.9 H (6.3-8.2) g/dL Albumin 4.8 (3.5-5.0) g/dL Amylase 89 (30-110) U/L Lipase 98 (23-300) U/L Urine Color Yellow (Yellow) Urine Appearance Clear (Clear) Urine pH 6.0 (4.6-8.0) Ur Specific [place] 1.020 (1.005-1.030) Urine Protein Trace A (Negative) Urine Glucose (UA) Negative (Negative) mg/dL Urine Ketones >=160 A (Negative) Urine Blood Negative (Negative) Urine Nitrite Negative (Negative) Urine Bilirubin Negative (Negative) Urine Urobilinogen 1.0 A (0.2) mg/dL Ur Leukocyte Esterase Negative (Negative) U Hyaline Cast (Auto) NONE SEEN (0-2) /LPF Urine Microscopic RBC 3-5 (0-5) /HPF Urine Microscopic WBC 0-2 (0-5) /HPF Ur Epithelial Cells Few (None Seen) /HPF Urine Bacteria Rare A (None Seen) /HPF Urine Culture Reflexed NO (NO) 11/14/23 Range/Units 11:16 WBC (3.98-10.04) x10^3/uL RBC (3.93-5.22) x10^6/uL Hgb (11.2-15.7) g/dL Hct (34.1-44.9) % MCV (79.4-94.8) fL MCH (25.6-32.2) pg MCHC (32.2-35.5) g/dL RDW (11.7-14.4) % Plt Count (182-369) x10^3/uL MPV (9.4-12.3) fL Gran % (34.0-71.1) % Immature Gran % (Auto) (0.001-0.429) % Nucleat RBC Rel Count (0.00-0.2) % Eos # (Auto) (0.04-0.36) x10^3/uL Immature Gran # (Auto) (0.001-0.031) x10^3u/L Absolute Lymphs (auto) (1.18-3.74) x10^3/uL Absolute Monos (auto) (0.24-0.86) x10^3/uL Absolute Nucleated RBC (0.00-0.012) x10^3u/L Lymphocytes % (19.3-51.7) % Monocytes % (4.7-12.5) % Eosinophils % (0.7-5.8) % Basophils % (0.1-1.2) % Absolute Granulocytes (1.56-6.13) x10^3/uL Basophils # (0.01-0.08) x10^3/uL Sodium 138 (135-145) mmol/L Potassium 3.3 L (3.5-5.1) mmol/L Chloride 101 (98-107) mmol/L Carbon Dioxide 27 (22-30) mmol/L Anion Gap 13.5 (5-15) MEQ/L BUN 12 (7-17) mg/dL Creatinine 0.75 (0.52-1.04) mg/dL Estimated GFR 103.8 ML/MIN Glucose 155 H (74-106) mg/dL Calcium 9.7 (8.4-10.2) mg/dL Magnesium (1.6-2.3) mg/dL Total Bilirubin (0.2-1.3) mg/dL AST (14-36) U/L ALT (0-35) U/L Alkaline Phosphatase (38-126) U/L Serum Total Protein (6.3-8.2) g/dL Albumin (3.5-5.0) g/dL Amylase (30-110) U/L Lipase (23-300) U/L Urine Color (Yellow) Urine Appearance (Clear) Urine pH (4.6-8.0) Ur Specific [place] (1.005-1.030) Urine Protein (Negative) Urine Glucose (UA) (Negative) mg/dL Urine Ketones (Negative) Urine Blood (Negative) Urine Nitrite (Negative) Urine Bilirubin (Negative) Urine Urobilinogen (0.2) mg/dL Ur Leukocyte Esterase (Negative) U Hyaline Cast (Auto) (0-2) /LPF Urine Microscopic RBC (0-5) /HPF Urine Microscopic WBC (0-5) /HPF Ur Epithelial Cells (None Seen) /HPF Urine Bacteria (None Seen) /HPF Urine Culture Reflexed (NO) - Radiology Impressions Radiology Exams & Impressions: Radiology Procedures Category Date Time Status ABDOMEN AND PELVIS W/0 CONTRAS [CT] Stat Exams 11/14/23 08:08 Completed Assessment/Plan (1) Abdominal pain Current Visit: Yes Status: Acute Assessment & Plan: -IVF - Zofran PRN nausea - CT abd negative - lipase Code(s): R10.9 - UNSPECIFIED ABDOMINAL PAIN (2) Hypokalemia Current Visit: Yes Status: Acute Assessment & Plan: - K+ 3.3 replaced in ER recheck 2 hours after complete Code(s): E87.6 - HYPOKALEMIA (3) Nausea & vomiting Current Visit: Yes Status: Acute Assessment & Plan: - zofran PRN - protonix Code(s): R11.2 - NAUSEA WITH VOMITING, UNSPECIFIED (4) Anxiety with depression Current Visit: Yes Status: Acute Assessment & Plan: - psych consult - may be causing N/V Code(s): F41.8 - OTHER SPECIFIED ANXIETY DISORDERS (5) Type II diabetes mellitus Current Visit: Yes Status: Acute Assessment & Plan: - a1c pending - ac/hs - s/s humalog insulin
[2023-11-14] MEDS ORDERED: TYLENOL 325 MG PO PRN (13:37)
[2023-11-14] MEDS ORDERED: HUMALOG SQ PRN (13:38)
[2023-11-14] MEDS: Inderal PO SCH (15:10)
[2023-11-14] MEDS: BUSPAR 5 MG PO SCH (15:11)
[2023-11-14] MEDS: Protonix 40MG Tablet PO SCH (15:11)
[2023-11-14] MEDS: NICODERM CQ 14 MG TOP SCH (15:11)
[2023-11-14] MEDS ORDERED: MEDICATION INTERVENTION MC SCH ×2 (15:15)
[2023-11-14] MEDS: Compazine 10 MG/2 ML IV PRN (16:50)
[2023-11-14] MEDS: Tums EX 750 MG PO PRN (17:17)
[2023-11-14 17:31] LABS: Absolute Neutrophil Ct (ANC) 5.96 x10^3/uL (1.56-6.13); BASOPHIL % 0.6 % (0.1-1.2); Basophil (Absolute #) 0.06 x10^3/uL (0.01-0.08); Eosinophil % 1.2 % (0.7-5.8); Eosinophil (Absolute #) 0.11 x10^3/uL (0.04-0.36); Hematocrit 38.1 % (34.1-44.9); IMMATURE GRAN # 0.03 x10^3u/L (0.001-0.031); IMMATURE GRAN % 0.3 % (0.001-0.429); Lymphocyte (Absolute #) 2.02 x10^3/uL (1.18-3.74); Lymphocytes % 21.2 % (19.3-51.7); Mean Cell Volume 79.5 fL (79.4-94.8); Mean Corpuscular Hemoglobin 25.1 pg (25.6-32.2); Mean Corpuscular Hgb Concent. 31.5 g/dL (32.2-35.5); Mean Platelet Volume 9.5 fL (9.4-12.3); Monocyte (Absolute #) 1.35 x10^3/uL (0.24-0.86); Monocytes % 14.2 % (4.7-12.5); Neutrophil % 62.5 % (34.0-71.1); Platelet Count 351 x10^3/uL (182-369); Red Blood Count 4.79 x10^6/uL (3.93-5.22); Red Cell Distribution Width 14.9 % (11.7-14.4); White Blood Count 9.5 x10^3/uL (3.98-10.04)
[2023-11-14 17:48] LABS: ANION GAP 15.2 MEQ/L (5-15); Calcium 9.4 mg/dL (8.4-10.2); Creatinine 1 0.7 mg/dL (0.52-1.04); EST GLOMERULAR FILTRATION RATE 112.8 ML/MIN; Potassium 3.2 mmol/L (3.5-5.1)
[2023-11-14] MEDS: K-LYTE PO SCH (17:56)
[2023-11-14] MEDS ORDERED: NON-FORMULARY ITEM (Prazosin Hcl [Prazosin Hcl] 1 MG Capsule) PO SCH (22:00)
[2023-11-14] MEDS ORDERED: NON-FORMULARY ITEM (Buprenorphine Hcl/Naloxone Hcl [Buprenorphine-Nalox 8-2 Mg Tab] 1 EACH SL SCH (22:00)
[2023-11-14] MEDS: Lantus Insulin SQ SCH (22:53)
[2023-11-14] MEDS: Seroquel 100 MG PO SCH (22:55)
[2023-11-14] MEDS: Klor Con PO SCH (22:55)
[2023-11-14] MEDS: Pepcid 20 MG PO SCH (22:55)
[2023-11-15 05:12] LABS: Hematocrit 34.3 % (34.1-44.9); Hemoglobin 10.8 g/dL (11.2-15.7); Mean Cell Volume 80.7 fL (79.4-94.8); Mean Corpuscular Hemoglobin 25.4 pg (25.6-32.2); Mean Corpuscular Hgb Concent. 31.5 g/dL (32.2-35.5); Mean Platelet Volume 9.5 fL (9.4-12.3); Platelet Count 321 x10^3/uL (182-369); Red Blood Count 4.25 x10^6/uL (3.93-5.22); White Blood Count 8.2 x10^3/uL (3.98-10.04)
[2023-11-15 05:37] LABS: ALBUMIN 3.8 g/dL (3.5-5.0); ANION GAP 14.4 MEQ/L (5-15); BILIRUBIN,TOTAL 0.3 mg/dL (0.2-1.3); Calcium 8.9 mg/dL (8.4-10.2); Creatinine 1 0.73 mg/dL (0.52-1.04); EST GLOMERULAR FILTRATION RATE 107.2 ML/MIN; MAGNESIUM 1.7 mg/dL (1.6-2.3); Potassium 3.8 mmol/L (3.5-5.1); Total Protein 6.9 g/dL (6.3-8.2)
[2023-11-15 08:22] VITALS: TEMP 98.3
--- NOTE | 2023-11-15 10:04 | PCM.DS ---
Discharge Summary Date of Admission: 11/14/23 13:15 Date of Discharge: 11/15/23 Admitting Physician: ABDIRASHID RAMON MD Consults: Consults on Case 11/14/23 13:41 Psychiatric Consult STAT Primary Care Provider: LUZ MARIA,AMEE Allergies Allergies promethazine [From Phenergan] Allergy (Severe, Verified 11/14/23 07:51) Difficulty Breathing only with iv phenergan ketorolac [From Toradol] Allergy (Intermediate, Verified 11/14/23 07:51) Rash sulfamethoxazole [From Bactrim] Allergy (Intermediate, Verified 11/14/23 07:51) Itching tramadol Allergy (Intermediate, Verified 11/14/23 07:51) Rash trimethoprim [From Bactrim] Allergy (Intermediate, Verified 11/14/23 07:51) Itching diphenhydramine [From Benadryl] Adverse Reaction (Severe, Verified 11/14/23 07:51) Difficulty Swallowing only with iv benadryl Hospital Summary - Hospital Course Hospital Course: 11/14/23 is a 38 year old female with pmhx of migraines, type II DM, pancreatitis, anxiety, depression, and RLS. She states she is under a large amount of stress as she is living in a camper and has to have a house to get her children back. Psych consult ordered. Pt states she has had nausea & vomiting for the past week with epigastric pain when vomiting 7/10 in severity. LBM was yesterday & wnl. Pt denies shortness of breath, fever, headache, cough. CT abd pelvis negative for acute concern. K+ 3.3 and replaced. IVF started and nausea medication PRN ordered. Lipase and A1C pending. 11/15/23 Pt resting in bed. She states she no longer has abd pain or vomiting. She reports continued nausea but asking diet be changed to regular. She is awaiting psych consult today. She denies suicidal or homicidal ideation. She is emotional today and states if she is leaving today she needs to leave by 10 or she will have to walk home. Discussed with case management and they are able to provide assistance with a ride if needed. Psych ok with D/C today. If pt is able to eat w/o vomiting she can d/c. Hypokalemia has resolved. She denies CP, SOB, abd. pain, N/V/D. - Vitals & Intake/Output Vital Signs: Vital Signs Temperature 98.3 F 11/15/23 08:00 Pulse Rate 64 11/15/23 08:00 Respiratory Rate 16 11/15/23 08:00 Blood Pressure 117/68 11/15/23 08:00 O2 Sat by Pulse Oximetry 93 L 11/15/23 08:00 Intake & Output: Intake & Output 11/12/23 11/13/23 11/14/23 11/15/23 11:59 11:59 11:59 11:59 Intake Total 2716 Balance 2716 Weight 82.4 kg 80.4 kg - Lab Result Diagrams: 11/15/23 04:50 11/15/23 04:50 Lab Results-Last 24 Hrs: Lab Results-Last 24 Hours 11/14/23 11/14/23 11/14/23 Range/Units 11:16 11:16 11:16 WBC (3.98-10.04) x10^3/uL RBC (3.93-5.22) x10^6/uL Hgb (11.2-15.7) g/dL Hct (34.1-44.9) % MCV (79.4-94.8) fL MCH (25.6-32.2) pg MCHC (32.2-35.5) g/dL RDW (11.7-14.4) % Plt Count (182-369) x10^3/uL MPV (9.4-12.3) fL Gran % (34.0-71.1) % Immature Gran % (Auto) (0.001-0.429) % Nucleat RBC Rel Count (0.00-0.2) % Eos # (Auto) (0.04-0.36) x10^3/uL Immature Gran # (Auto) (0.001-0.031) x10^3u/L Absolute Lymphs (auto) (1.18-3.74) x10^3/uL Absolute Monos (auto) (0.24-0.86) x10^3/uL Absolute Nucleated RBC (0.00-0.012) x10^3u/L Lymphocytes % (19.3-51.7) % Monocytes % (4.7-12.5) % Eosinophils % (0.7-5.8) % Basophils % (0.1-1.2) % Absolute Granulocytes (1.56-6.13) x10^3/uL Basophils # (0.01-0.08) x10^3/uL Sodium 138 (135-145) mmol/L Potassium 3.3 L (3.5-5.1) mmol/L Chloride 101 (98-107) mmol/L Carbon Dioxide 27 (22-30) mmol/L Anion Gap 13.5 (5-15) MEQ/L BUN 12 (7-17) mg/dL Creatinine 0.75 (0.52-1.04) mg/dL Estimated GFR 103.8 ML/MIN Glucose 155 H (74-106) mg/dL POC Glucometer (74 to 106) mg/dL Hemoglobin A1c 6.75 H (4.5-6.0) % Calcium 9.7 (8.4-10.2) mg/dL Magnesium (1.6-2.3) mg/dL Total Bilirubin (0.2-1.3) mg/dL AST (14-36) U/L ALT (0-35) U/L Alkaline Phosphatase (38-126) U/L Serum Total Protein (6.3-8.2) g/dL Albumin (3.5-5.0) g/dL Lipase 93 (23-300) U/L 11/14/23 11/14/23 11/14/23 Range/Units 16:55 17:25 17:25 WBC 9.5 (3.98-10.04) x10^3/uL RBC 4.79 (3.93-5.22) x10^6/uL Hgb 12.0 (11.2-15.7) g/dL Hct 38.1 (34.1-44.9) % MCV 79.5 (79.4-94.8) fL MCH 25.1 L (25.6-32.2) pg MCHC 31.5 L (32.2-35.5) g/dL RDW 14.9 H (11.7-14.4) % Plt Count 351 (182-369) x10^3/uL MPV 9.5 (9.4-12.3) fL Gran % 62.5 (34.0-71.1) % Immature Gran % (Auto) 0.3 (0.001-0.429) % Nucleat RBC Rel Count 0.0 (0.00-0.2) % Eos # (Auto) 0.11 (0.04-0.36) x10^3/uL Immature Gran # (Auto) 0.03 (0.001-0.031) x10^3u/L Absolute Lymphs (auto) 2.02 (1.18-3.74) x10^3/uL Absolute Monos (auto) 1.35 H (0.24-0.86) x10^3/uL Absolute Nucleated RBC 0.00 (0.00-0.012) x10^3u/L Lymphocytes % 21.2 (19.3-51.7) % Monocytes % 14.2 H (4.7-12.5) % Eosinophils % 1.2 (0.7-5.8) % Basophils % 0.6 (0.1-1.2) % Absolute Granulocytes 5.96 (1.56-6.13) x10^3/uL Basophils # 0.06 (0.01-0.08) x10^3/uL Sodium 139 (135-145) mmol/L Potassium 3.2 L (3.5-5.1) mmol/L Chloride 104 (98-107) mmol/L Carbon Dioxide 24 (22-30) mmol/L Anion Gap 15.2 H (5-15) MEQ/L BUN 10 (7-17) mg/dL Creatinine 0.70 (0.52-1.04) mg/dL Estimated GFR 112.8 ML/MIN Glucose 129 H (74-106) mg/dL POC Glucometer 120 H (74 to 106) mg/dL Hemoglobin A1c (4.5-6.0) % Calcium 9.4 (8.4-10.2) mg/dL Magnesium (1.6-2.3) mg/dL Total Bilirubin (0.2-1.3) mg/dL AST (14-36) U/L ALT (0-35) U/L Alkaline Phosphatase (38-126) U/L Serum Total Protein (6.3-8.2) g/dL Albumin (3.5-5.0) g/dL Lipase (23-300) U/L 11/14/23 11/15/23 11/15/23 Range/Units 22:15 04:50 04:50 WBC 8.2 (3.98-10.04) x10^3/uL RBC 4.25 (3.93-5.22) x10^6/uL Hgb 10.8 L (11.2-15.7) g/dL Hct 34.3 (34.1-44.9) % MCV 80.7 (79.4-94.8) fL MCH 25.4 L (25.6-32.2) pg MCHC 31.5 L (32.2-35.5) g/dL RDW 15.0 H (11.7-14.4) % Plt Count 321 (182-369) x10^3/uL MPV 9.5 (9.4-12.3) fL Gran % (34.0-71.1) % Immature Gran % (Auto) (0.001-0.429) % Nucleat RBC Rel Count (0.00-0.2) % Eos # (Auto) (0.04-0.36) x10^3/uL Immature Gran # (Auto) (0.001-0.031) x10^3u/L Absolute Lymphs (auto) (1.18-3.74) x10^3/uL Absolute Monos (auto) (0.24-0.86) x10^3/uL Absolute Nucleated RBC (0.00-0.012) x10^3u/L Lymphocytes % (19.3-51.7) % Monocytes % (4.7-12.5) % Eosinophils % (0.7-5.8) % Basophils % (0.1-1.2) % Absolute Granulocytes (1.56-6.13) x10^3/uL Basophils # (0.01-0.08) x10^3/uL Sodium 137 (135-145) mmol/L Potassium 3.8 (3.5-5.1) mmol/L Chloride 104 (98-107) mmol/L Carbon Dioxide 22 (22-30) mmol/L Anion Gap 14.4 (5-15) MEQ/L BUN 10 (7-17) mg/dL Creatinine 0.73 (0.52-1.04) mg/dL Estimated GFR 107.2 ML/MIN Glucose 121 H (74-106) mg/dL POC Glucometer 115 H (74 to 106) mg/dL Hemoglobin A1c (4.5-6.0) % Calcium 8.9 (8.4-10.2) mg/dL Magnesium 1.7 (1.6-2.3) mg/dL Total Bilirubin 0.30 (0.2-1.3) mg/dL AST 25 (14-36) U/L ALT 20 (0-35) U/L Alkaline Phosphatase 55 (38-126) U/L Serum Total Protein 6.9 (6.3-8.2) g/dL Albumin 3.8 (3.5-5.0) g/dL Lipase (23-300) U/L 11/15/23 Range/Units 07:33 WBC (3.98-10.04) x10^3/uL RBC (3.93-5.22) x10^6/uL Hgb (11.2-15.7) g/dL Hct (34.1-44.9) % MCV (79.4-94.8) fL MCH (25.6-32.2) pg MCHC (32.2-35.5) g/dL RDW (11.7-14.4) % Plt Count (182-369) x10^3/uL MPV (9.4-12.3) fL Gran % (34.0-71.1) % Immature Gran % (Auto) (0.001-0.429) % Nucleat RBC Rel Count (0.00-0.2) % Eos # (Auto) (0.04-0.36) x10^3/uL Immature Gran # (Auto) (0.001-0.031) x10^3u/L Absolute Lymphs (auto) (1.18-3.74) x10^3/uL Absolute Monos (auto) (0.24-0.86) x10^3/uL Absolute Nucleated RBC (0.00-0.012) x10^3u/L Lymphocytes % (19.3-51.7) % Monocytes % (4.7-12.5) % Eosinophils % (0.7-5.8) % Basophils % (0.1-1.2) % Absolute Granulocytes (1.56-6.13) x10^3/uL Basophils # (0.01-0.08) x10^3/uL Sodium (135-145) mmol/L Potassium (3.5-5.1) mmol/L Chloride (98-107) mmol/L Carbon Dioxide (22-30) mmol/L Anion Gap (5-15) MEQ/L BUN (7-17) mg/dL Creatinine (0.52-1.04) mg/dL Estimated GFR ML/MIN Glucose (74-106) mg/dL POC Glucometer 107 H (74 to 106) mg/dL Hemoglobin A1c (4.5-6.0) % Calcium (8.4-10.2) mg/dL Magnesium (1.6-2.3) mg/dL Total Bilirubin (0.2-1.3) mg/dL AST (14-36) U/L ALT (0-35) U/L Alkaline Phosphatase (38-126) U/L Serum Total Protein (6.3-8.2) g/dL Albumin (3.5-5.0) g/dL Lipase (23-300) U/L Micro Results-Entire Visit: Accuchecks Date 11/14/23 Time 22:15 - Radiology Exams Ordered Rad Exams-Entire Visit: Radiology Procedures Category Date Time Status ABDOMEN AND PELVIS W/0 CONTRAS [CT] Stat Exams 11/14/23 08:08 Completed - Procedures and Test Procedures and Tests throughout Hospitalization: Therapy Orders & Screens 11/14/23 14:11 Smoking Cessation Education ONCE Comment: Diagnosis: VOMITING, ABDOMINAL PAIN, HYPOKALEMIA Smoking Status: Current every day smoker How long have you smoked: 21 yrs Have you smoked in the past 12 months: Yes Approximately how many cigarettes per day: 1/2PPD Do you dip or chew tobacco: No Discharge Exam General Appearance: no apparent distress, alert Neurologic Exam: alert, oriented x 3, cooperative, nml cerebellar function, sensation nml, depressed mood/affect, No motor deficits Eye Exam: PERRL, EOMI, eyes nml inspection Ears, Nose, Throat Exam: normal ENT inspection, pharynx normal, moist mucous membranes Neck Exam: normal inspection, non-tender, supple, full range of motion Respiratory Exam: normal breath sounds, lungs clear, No respiratory distress Cardiovascular Exam: regular rate/rhythm, normal heart sounds Gastrointestinal/Abdomen Exam: soft, No tenderness, No mass Pelvic Exam: deferred Rectal Exam: deferred Back Exam: normal inspection, normal range of motion, No CVA tenderness, No vertebral tenderness Extremity Exam: normal inspection, normal range of motion Skin Exam: normal color, warm, dry Final Diagnosis/Problem List - Final Discharge Diagnosis/Problem (1) Abdominal pain Current Visit: No Status: Acute Code(s): R10.9 - UNSPECIFIED ABDOMINAL PAIN (2) Hypokalemia Current Visit: No Status: Acute Code(s): E87.6 - HYPOKALEMIA (3) Nausea & vomiting Current Visit: No Status: Acute Code(s): R11.2 - NAUSEA WITH VOMITING, UNSPECIFIED (4) Anxiety with depression Current Visit: Yes Status: Acute Code(s): F41.8 - OTHER SPECIFIED ANXIETY DISORDERS (5) Type II diabetes mellitus Current Visit: No Status: Acute Assessment & Plan: (1) Abdominal pain Current Visit: Yes Status: Acute Assessment & Plan: -IVF - Zofran PRN nausea - CT abd negative - lipase 11/14 - resolved - advance diet Code(s): R10.9 - UNSPECIFIED ABDOMINAL PAIN (2) Hypokalemia Current Visit: Yes Status: Acute Assessment & Plan: - K+ 3.3 replaced in ER recheck 2 hours after complete 11/14 - resolved Code(s): E87.6 - HYPOKALEMIA (3) Nausea & vomiting Current Visit: Yes Status: Acute Assessment & Plan: - zofran PRN - protonix - IVF 11/14 - vomiting resolved - continued nausea but wanting diet advanced Code(s): R11.2 - NAUSEA WITH VOMITING, UNSPECIFIED (4) Anxiety with depression Current Visit: Yes Status: Acute Assessment & Plan: - psych consult- pending - may be causing N/V Code(s): F41.8 - OTHER SPECIFIED ANXIETY DISORDERS (5) Type II diabetes mellitus Current Visit: Yes Status: Acute Assessment & Plan: - A1C- 6.75 - ac/hs - s/s Humalog insulin 11/14 - refused lantus last night - Discharge Discharge Date: 11/15/23 Disposition: Home, Self-Care Condition: Stable Prescriptions: Continue Propranolol HCl [Inderal ] 30 mg PO BID Blood Sugar Diagnostic [Accu-Chek Guide Test Strip] 1 each ACHS #30 strip Lancets [Accu-Chek Safe-T-Pro Plus] 1 each ACHS #100 stick PANTOPRAZOLE 40 mg Tablet [Protonix 40MG Tablet] 40 mg PO DAILY Ondansetron ODT 4 MG [Zofran Odt 4 mg] 8 mg PO Q6H PRN PRN PRN Reason: Vomiting Famotidine [Pepcid] 10 mg PO HS Buspirone HCl 5 mg [Buspar 5 mg] 15 mg PO TID Prazosin HCl 1 mg PO HS Acetaminophen 500 mg [Tylenol Extra Strength 500 mg] 1,000 mg PO Q6H PRN PRN PRN Reason: Pain Quetiapine Fumarate 100 mg [Seroquel 100 MG] 100 mg PO HS Potassium Chloride [Klor-Con M20] 20 meq PO BID Buprenorphine HCl/Naloxone HCl [Buprenorphine-Nalox 8-2 mg Tab] 1 each SL BID Insulin Degludec [Tresiba] 40 unit SQ UD Follow up with: AMEE LOERA MD [Primary Care Provider] - 11/22/23 10:00 am ([facility])
[2023-11-15 11:49] VITALS: BP 111/53; PULSE 52; RESP 18; O2SAT 95
== END 2023-11-15 13:45 | disposition home or self-care (01) ==
LOC: ED 07:35 → MED SURG 13:15
PROVIDERS: ADMIT Internal Medicine; ATTEND Internal Medicine
DX: R10.9 Unspecified abdominal pain (principal); E87.6 Hypokalemia; Z59.01 Sheltered homelessness; R11.2 Nausea with vomiting, unspecified; F41.8 Other specified anxiety disorders; E11.9 Type 2 diabetes mellitus without complications; F17.200 Nicotine dependence, unspecified, uncomplicated; Z79.899 Other long term (current) drug therapy
CPT/HCPCS: 36000; 36415; 74176; 80048; 80053; 81001; 82150; 82947; 83036; 83690; 83735; 85025; 85027; 93041; 93268; 96360; 96361; 96365; 96366; 96374; 96375; 96376; 99285; G0378; Q3014; 90791; J2405; J3480; A9270-GY

== ENCOUNTER 2023-11-16 16:51 | Emergency (ER) | payer OTHER ==
[2023-11-17] MEDS ORDERED: Compazine 10 MG/2 ML ONE (04:04)
[2023-11-17] MEDS ORDERED: TYLENOL 325 MG ONE (04:04)
[2023-11-17] MEDS ORDERED: Sodium Chloride 0.9% 1000 ML 1,000 ML ONE (04:05)
== END 2023-11-16 17:33 | disposition left against medical advice (07) ==
LOC: ED 16:51
DX: Z53.21 Procedure and treatment not carried out due to patient leaving prior to being seen by health care provider (principal)
CPT/HCPCS: 99281; A9270-GY

== ENCOUNTER 2023-11-16 19:51 | Emergency (ER) | payer OTHER ==
--- NOTE | 2023-11-16 19:57 | ERPHSYRPT ---
- History of Present Illness Time Seen by Provider: 11/16/23 19:57 Historian: patient, family Exam Limitations: no limitations Physician History: This is a 38-year-old white female patient of Dr. Loera that presents with multiple episodes of vomiting. She states she only has abdominal pain when she is vomiting. She also states she has some intermittent chest pain when she vomits as well. Patient has been having the symptoms for over a month and has an appointment to see tribal delegate in December. I reviewed 11/14/2023 inpatient stay admission note. I reviewed the labs on that date as well as the twelve-lead EKG and the results of the CT scan of the abdomen pelvis which states it is a nonacute abdominal pelvic examination no different from that same study performed on 11/11/2023. Patient was given a prescription for Zofran but she states that medication is not helping her vomiting. Patient states that she cannot take Phenergan but she can take Compazine/prochlorperazine. Patient has a history anxiety, depression, peripheral neuropathy, migraine headache, insulin-dependent diabetes and gastroesophageal reflux disease. Activities at Onset: none Abdominal Pain Onset Location: generalized abdomen Pain Radiation: no radiation Severity of Pain-Max: moderate (When vomiting) Severity of Pain-Current: mild (When not vomiting) Modifying Factors: Improves With: vomiting Associated Symptoms: chest pain (Vomiting), loss of appetite, nausea, vomiting, weakness Previous symptoms: same symptoms as today, recently seen, recent hospitalization, recently treated Allergies/Adverse Reactions: promethazine [From Phenergan] Allergy (Severe, Verified 11/16/23 20:06) Difficulty Breathing only with iv phenergan ketorolac [From Toradol] Allergy (Intermediate, Verified 11/16/23 20:06) Rash sulfamethoxazole [From Bactrim] Allergy (Intermediate, Verified 11/16/23 20:06) Itching tramadol Allergy (Intermediate, Verified 11/16/23 20:06) Rash trimethoprim [From Bactrim] Allergy (Intermediate, Verified 11/16/23 20:06) Itching diphenhydramine [From Benadryl] Adverse Reaction (Severe, Verified 11/16/23 20:06) Difficulty Swallowing only with iv benadryl Home Medications: Propranolol HCl [Inderal ] 30 mg PO BID 01/11/22 [History] Acetaminophen 500 mg [Tylenol Extra Strength 500 mg] 1,000 mg PO Q6H PRN PRN 11/14/23 [History] Buprenorphine HCl/Naloxone HCl [Buprenorphine-Nalox 8-2 mg Tab] 1 each SL BID 11/14/23 [History] Buspirone HCl 5 mg [Buspar 5 mg] 15 mg PO TID 11/14/23 [History] Famotidine [Pepcid] 10 mg PO HS 11/14/23 [History] Insulin Degludec [Tresiba] 40 unit SQ UD 11/14/23 [History] Ondansetron ODT 4 MG [Zofran Odt 4 mg] 8 mg PO Q6H PRN PRN 11/14/23 [History] PANTOPRAZOLE 40 mg Tablet [Protonix 40MG Tablet] 40 mg PO DAILY 11/14/23 [History] Potassium Chloride [Klor-Con M20] 20 meq PO BID 11/14/23 [History] Prazosin HCl 1 mg PO HS 11/14/23 [History] Quetiapine Fumarate 100 mg [Seroquel 100 MG] 100 mg PO HS 11/14/23 [History] Hx Tetanus, Diphtheria Vaccination/Date Given: Yes Hx Influenza Vaccination/Date Given: No Hx Pneumococcal Vaccination/Date Given: No Travel Risk - International Travel Have you traveled outside of the country in past 3 weeks: No - Emerging Infectious Disease Are you exhibiting symptoms associated with any current EIDs: Yes Symptoms: Vomitting - Review of Systems Constitutional: Weakness Eyes: No Symptoms Ears, Nose, & Throat: No Symptoms Respiratory: No Symptoms Cardiac: Chest Pain (When vomiting vomiting) Abdominal/Gastrointestinal: Abdominal Pain (Generalized when vomiting), Nausea, Vomiting Genitourinary Symptoms: No Symptoms Musculoskeletal: No Symptoms Skin: No Symptoms Neurological: No Symptoms Psychological: No Symptoms Endocrine: No Symptoms Hematologic/Lymphatic: No Symptoms Immunological/Allergic: No Symptoms - Past Medical History Pertinent Past Medical History: Yes Neurological History: Migraines, Peripheral Neuropathy ENT History: Other Cardiac History: No Pertinent History Respiratory History: No Pertinent History Endocrine Medical History: Diabetes Type II Musculoskeletal History: No Pertinent History GI Medical History: Gallbladder Disease, Pancreatitis History: No Pertinent History Psycho-Social History: Anxiety, Depression Female Reproductive Disorders: No Pertinent History Other Medical History: carpal tunnel bilaterally. RLS - Past Surgical History Past Surgical History: Yes Neuro Surgical History: No Pertinent History Cardiac: No Pertinent History Respiratory: No Pertinent History Gastrointestinal: Cholecystectomy Genitourinary: No Pertinent History Musculoskeletal: No Pertinent History Female Surgical History: Section, Tubal Ligation Other Surgical History: 2 c sections-2nd had tubal as well Significant Family History: no pertinent family hx - Female History Hx Last Menstrual Period: last month - Social History Smoking Status: Current every day smoker How long have you smoked: 21 yrs Exposure to second hand smoke: Yes Alcohol Use: None Drug Use: none Patient Lives Alone: No - Social Determinants of Health Will the patient participate in the screening: Declined to provide - Nursing Vital Signs Nursing Vital Signs: Initial Vital Signs Temperature 98.6 F 11/16/23 20:07 Pulse Rate 95 H 11/16/23 20:07 Respiratory Rate 20 11/16/23 20:07 Blood Pressure 155/111 11/16/23 20:07 O2 Sat by Pulse Oximetry 100 11/16/23 20:07 Pain Scale Pain Intensity 5 - Physical Exam General Appearance: mild distress, alert, anxiety Eye Exam: PERRL/EOMI, eyes nml inspection Ears, Nose, Throat Exam: moist mucous membranes, other (Dentulous) Neck Exam: normal inspection, non-tender, supple, full range of motion Respiratory Exam: normal breath sounds, chest tenderness (When she vomits no c hest pain now), lungs clear, airway intact, No respiratory distress Cardiovascular Exam: regular rate/rhythm, normal heart sounds, normal peripheral pulses Gastrointestinal/Abdomen Exam: soft, normal bowel sounds, tenderness Pelvic Exam: not done Rectal Exam: not done Back Exam: normal inspection, normal range of motion, No CVA tenderness, No vertebral tenderness Extremity Exam: normal inspection, normal range of motion, pelvis stable Neurologic Exam: alert, oriented x 3, cooperative, molecular physicist II-XII nml as tested, nml cerebellar function, nml station & gait, sensation nml Skin Exam: normal color, warm, dry Lymphatic Exam: No adenopathy SpO2 Interpretation: normal O2 Delivery: Room Air - Course Nursing assessment & vital signs reviewed: Yes EKG Interpreted by Me: RATE (91), Sinus Rhythm, NORMAL AXIS, NORMAL INTERVALS, NORMAL QRS, NORMAL ST-T, Other (No acute ischemia on today's twelve-lead EKG.) Ordered Tests: Active Orders 24 hr Category Date Time Status Clean Catch Urine Specimen STAT Care 11/16/23 23:39 Active EKG-ER Only STAT Care 11/16/23 20:21 Active IV Insertion STAT Care 11/16/23 20:21 Active AMYLASE Stat Lab 11/16/23 20:50 Completed CBC W DIFF Stat Lab 11/16/23 20:50 Completed CMP Stat Lab 11/16/23 20:50 Completed CULTURE,URINE Stat Lab 11/16/23 21:23 Received LIPASE Stat Lab 11/16/23 20:50 Completed Lactic Acid Stat Lab 11/16/23 20:51 Completed TROPONIN Q4H Lab 11/16/23 20:50 Completed TROPONIN Q4H Lab 11/17/23 00:30 Ordered TROPONIN Q4H Lab 11/17/23 04:30 Ordered UA W/RFX UR CULTURE Stat Lab 11/16/23 21:23 Completed Urine Triage Profile Stat Lab 11/16/23 23:48 Ordered Medication Summary Discontinued Medications Generic Name Dose Route Start Last Admin Trade Name Freq PRN Reason Stop Dose Admin Heparin Sodium (Beef Lung) 5,000 unit 11/16/23 23:08 11/16/23 23:31 Heparin 5000 Units/0.5 Ml 5,000 Unit/0.5 Ml Syr IV 11/16/23 23:09 5,000 unit STAT ONE Administration Heparin Sodium (Beef Lung) Confirm 11/16/23 23:28 Heparin 5000 Units/0.5 Ml 5,000 Unit/0.5 Ml Syr Administered 11/16/23 23:29 Dose 5,000 unit .ROUTE .STK-MED ONE Hydromorphone HCl 1 mg 11/16/23 20:21 11/16/23 22:43 Hydromorphone 1 Mg/1ml Inj IV 11/16/23 20:22 Not Given STAT ONE Hydromorphone HCl 1 mg 11/16/23 21:29 11/16/23 21:41 Hydromorphone 1 Mg/1ml Inj IM 11/16/23 21:30 1 mg STAT ONE Administration Hydromorphone HCl Confirm 11/16/23 21:32 Hydromorphone 1 Mg/1ml Inj Administered 11/16/23 21:33 Dose 1 mg .ROUTE .STK-MED ONE Sodium Chloride 1,000 mls @ 999 mls/hr 11/16/23 20:21 11/16/23 22:17 Sodium Chloride 0.9% 1000 Ml IV 11/16/23 21:21 999 mls/hr .Q1H1M STA Administration Lactated Ringer's 1,000 mls @ 999 mls/hr 11/16/23 21:21 11/16/23 22:47 Lactated Ringers IV 11/16/23 22:21 999 mls/hr .Q1H1M ONE Administration Sodium Chloride Confirm 11/16/23 22:01 Sodium Chloride 0.9% 1000 Ml Administered 11/16/23 22:02 Dose 1,000 mls @ ud .ROUTE .STK-MED ONE Lactated Ringer's Confirm 11/16/23 22:44 Lactated Ringers Administered 11/16/23 22:45 Dose 1,000 mls @ ud IV .STK-MED ONE Ceftriaxone Sodium 1 gm in 100 mls @ 200 mls/hr 11/16/23 23:01 11/16/23 23:31 Rocephin 1 Gm / 100 Ml Nacl IV 11/16/23 23:30 200 ml/hr STAT ONE 200 mls/hr Administration Ceftriaxone Sodium Confirm 11/16/23 23:28 Rocephin 1 Gm / 100 Ml Nacl Administered 11/16/23 23:29 Dose 1 gm in 100 mls @ ud IV .STK-MED ONE Pantoprazole Sodium 40 mg 11/16/23 20:21 11/16/23 22:47 Pantoprazole 40 Mg Vial IV 11/16/23 20:22 40 mg STAT ONE Administration Pantoprazole Sodium Confirm 11/16/23 22:44 Pantoprazole 40 Mg Vial Administered 11/16/23 22:45 Dose 40 mg IV .STK-MED ONE Prochlorperazine Edisylate 5 mg 11/16/23 20:21 11/16/23 22:45 Prochlorperazine Edisylate 10 Mg/2 Ml Vial IV 11/16/23 20:22 Not Given STAT ONE Prochlorperazine Edisylate 5 mg 11/16/23 21:29 11/16/23 21:41 Prochlorperazine Edisylate 10 Mg/2 Ml Vial IM 11/16/23 21:30 5 mg STAT ONE Administration Prochlorperazine Edisylate Confirm 11/16/23 21:33 Prochlorperazine Edisylate 10 Mg/2 Ml Vial Administered 11/16/23 21:34 Dose 10 mg .ROUTE .[facility] ONE Lab/Rad Data: Laboratory Result Diagrams 11/16/23 20:50 11/16/23 20:50 Laboratory Results 11/16/23 11/16/23 11/16/23 Range/Units 21:23 20:51 20:50 WBC (3.98-10.04) x10^3/uL RBC (3.93-5.22) x10^6/uL Hgb (11.2-15.7) g/dL Hct (34.1-44.9) % MCV (79.4-94.8) fL MCH (25.6-32.2) pg MCHC (32.2-35.5) g/dL RDW (11.7-14.4) % Plt Count (182-369) x10^3/uL MPV (9.4-12.3) fL Gran % (34.0-71.1) % Immature Gran % (Auto) (0.001-0.429) % Nucleat RBC Rel Count (0.00-0.2) % Eos # (Auto) (0.04-0.36) x10^3/uL Immature Gran # (Auto) (0.001-0.031) x10^3u/L Absolute Lymphs (auto) (1.18-3.74) x10^3/uL Absolute Monos (auto) (0.24-0.86) x10^3/uL Absolute Nucleated RBC (0.00-0.012) x10^3u/L Lymphocytes % (19.3-51.7) % Monocytes % (4.7-12.5) % Eosinophils % (0.7-5.8) % Basophils % (0.1-1.2) % Absolute Granulocytes (1.56-6.13) x10^3/uL Basophils # (0.01-0.08) x10^3/uL Sodium (135-145) mmol/L Potassium (3.5-5.1) mmol/L Chloride (98-107) mmol/L Carbon Dioxide (22-30) mmol/L Anion Gap (5-15) MEQ/L BUN (7-17) mg/dL Creatinine (0.52-1.04) mg/dL Estimated GFR ML/MIN Glucose (74-106) mg/dL Lactic Acid 1.2 (0.4-2.0) Calcium (8.4-10.2) mg/dL Total Bilirubin (0.2-1.3) mg/dL AST (14-36) U/L ALT (0-35) U/L Alkaline Phosphatase (38-126) U/L Troponin I 0.412 H* (0.000-0.033) ng/mL Serum Total Protein (6.3-8.2) g/dL Albumin (3.5-5.0) g/dL Amylase (30-110) U/L Lipase (23-300) U/L Urine Color Yellow (Yellow) Urine Appearance Clear (Clear) Urine pH 8.0 (4.6-8.0) Ur Specific [place] 1.025 (1.005-1.030) Urine Protein 30 (Negative) Urine Glucose (UA) Negative (Negative) mg/dL Urine Ketones 40 A (Negative) Urine Blood Negative (Negative) Urine Nitrite Negative (Negative) Urine Bilirubin Negative (Negative) Urine Urobilinogen 1.0 A (0.2) mg/dL Ur Leukocyte Esterase Trace A (Negative) U Hyaline Cast (Auto) 0-2 (0-2) /LPF Urine Microscopic RBC 3-5 (0-5) /HPF Urine Microscopic WBC 6-10 A (0-5) /HPF Ur Epithelial Cells Few (None Seen) /HPF Urine Bacteria Rare A (None Seen) /HPF Urine Culture Reflexed YES (NO) 11/16/23 11/16/23 Range/Units 20:50 20:50 WBC 11.4 H (3.98-10.04) x10^3/uL RBC 4.80 (3.93-5.22) x10^6/uL Hgb 12.2 (11.2-15.7) g/dL Hct 38.3 (34.1-44.9) % MCV 79.8 (79.4-94.8) fL MCH 25.4 L (25.6-32.2) pg MCHC 31.9 L (32.2-35.5) g/dL RDW 15.1 H (11.7-14.4) % Plt Count 405 H (182-369) x10^3/uL MPV 9.5 (9.4-12.3) fL Gran % 73.4 H (34.0-71.1) % Immature Gran % (Auto) 0.4 (0.001-0.429) % Nucleat RBC Rel Count 0.0 (0.00-0.2) % Eos # (Auto) 0.08 (0.04-0.36) x10^3/uL Immature Gran # (Auto) 0.05 H (0.001-0.031) x10^3u/L Absolute Lymphs (auto) 1.97 (1.18-3.74) x10^3/uL Absolute Monos (auto) 0.85 (0.24-0.86) x10^3/uL Absolute Nucleated RBC 0.00 (0.00-0.012) x10^3u/L Lymphocytes % 17.3 L (19.3-51.7) % Monocytes % 7.5 (4.7-12.5) % Eosinophils % 0.7 (0.7-5.8) % Basophils % 0.7 (0.1-1.2) % Absolute Granulocytes 8.36 H (1.56-6.13) x10^3/uL Basophils # 0.08 (0.01-0.08) x10^3/uL Sodium 138 (135-145) mmol/L Potassium 4.4 (3.5-5.1) mmol/L Chloride 104 (98-107) mmol/L Carbon Dioxide 20 L (22-30) mmol/L Anion Gap 18.7 H (5-15) MEQ/L BUN 8 (7-17) mg/dL Creatinine 0.79 (0.52-1.04) mg/dL Estimated GFR 97.5 ML/MIN Glucose 202 H (74-106) mg/dL Lactic Acid (0.4-2.0) Calcium 10.4 H D (8.4-10.2) mg/dL Total Bilirubin 0.60 (0.2-1.3) mg/dL AST 35 (14-36) U/L ALT 25 (0-35) U/L Alkaline Phosphatase 49 (38-126) U/L Troponin I (0.000-0.033) ng/mL Serum Total Protein 8.2 (6.3-8.2) g/dL Albumin 4.6 (3.5-5.0) g/dL Amylase 85 (30-110) U/L Lipase 92 (23-300) U/L Urine Color (Yellow) Urine Appearance (Clear) Urine pH (4.6-8.0) Ur Specific [place] (1.005-1.030) Urine Protein (Negative) Urine Glucose (UA) (Negative) mg/dL Urine Ketones (Negative) Urine Blood (Negative) Urine Nitrite (Negative) Urine Bilirubin (Negative) Urine Urobilinogen (0.2) mg/dL Ur Leukocyte Esterase (Negative) U Hyaline Cast (Auto) (0-2) /LPF Urine Microscopic RBC (0-5) /HPF Urine Microscopic WBC (0-5) /HPF Ur Epithelial Cells (None Seen) /HPF Urine Bacteria (None Seen) /HPF Urine Culture Reflexed (NO) - Progress Progress: improved, re-examined Progress Note: 11/16/23 21:00 My medical decision making and the assignment of moderate complexity to this patient's medical issue today is based on review the patient's past medical history, review the patient's medication list, review the patient drug allergy list, history present illness and physical findings on examination. The workup in this patient includes intravenous line patient, infusion of normal saline solution, infusion of Compazine 5 mg intravenously, infusion of Dilaudid 1 mg, infusion of Protonix 40 mg, CBC, CMP, amylase, lipase, urinalysis. I have opted not to repeat the CT scan of the abdomen pelvis. Patient had a nonacute CT scan of the abdomen pelvis without contrast on 11/11/2023 and again on 11/14/2023. Differential diagnosis includes but is not limited to electrolyte abnormalities, dehydration, myocardial infarction, arrhythmias 11/16/23 23:09 I interpreted the patient's laboratory data results. Based on the laboratory data results, the patient has a non-STEMI with a troponin level of 0.412. On 11/11/2023, her troponin level was normal. Approximately 1 month ago, the patient's troponin level was normal as well. Patient is having persistent, mild central substernal nonradiating chest pain. 11/16/23 23:57 This patient was auto accepted to the transfer [facility] at [facility]. Counseled pt/family regarding: lab results, diagnosis, need for follow-up Medical Desision Making - Independent Historian Additional History obtained from: Spouse - Social Determinants of Health Pt's dx & treatment plan are significantly limited by SDOH: Unemployed Limited access to: transportation, medical care - Diagnostic Testing Diagnostic test were ordered, analyzed, and reviewed by me: Yes - Risk of complications The pt has a high risk of morbidity or mortality based on: Decision regarding hospitilization or escalation of hosp level of care - Departure Departure Disposition: Transfer Clinical Impression: Intractable vomiting with nausea, Non-STEMI (non-ST elevated myocardial infarction), Chest pain, Vomiting, Dehydration Condition: Stable Critical Care Time: Yes Critical Care Time(excluding separately billable procedures): Critical 30-74 mins (40 minutes) Referrals: AMEE LOERA MD [Primary Care Provider] - Follow up/PCP as directed
[2023-11-16 20:34] VITALS: TEMP 98.6
[2023-11-16 20:57] LABS: Absolute Neutrophil Ct (ANC) 8.36 x10^3/uL (1.56-6.13); BASOPHIL % 0.7 % (0.1-1.2); Basophil (Absolute #) 0.08 x10^3/uL (0.01-0.08); Eosinophil % 0.7 % (0.7-5.8); Eosinophil (Absolute #) 0.08 x10^3/uL (0.04-0.36); Hematocrit 38.3 % (34.1-44.9); Hemoglobin 12.2 g/dL (11.2-15.7); IMMATURE GRAN # 0.05 x10^3u/L (0.001-0.031); IMMATURE GRAN % 0.4 % (0.001-0.429); Lymphocyte (Absolute #) 1.97 x10^3/uL (1.18-3.74); Lymphocytes % 17.3 % (19.3-51.7); Mean Cell Volume 79.8 fL (79.4-94.8); Mean Corpuscular Hemoglobin 25.4 pg (25.6-32.2); Mean Corpuscular Hgb Concent. 31.9 g/dL (32.2-35.5); Mean Platelet Volume 9.5 fL (9.4-12.3); Monocyte (Absolute #) 0.85 x10^3/uL (0.24-0.86); Monocytes % 7.5 % (4.7-12.5); Neutrophil % 73.4 % (34.0-71.1); Platelet Count 405 x10^3/uL (182-369); Red Cell Distribution Width 15.1 % (11.7-14.4); White Blood Count 11.4 x10^3/uL (3.98-10.04)
[2023-11-16 21:17] LABS: ALBUMIN 4.6 g/dL (3.5-5.0); ANION GAP 18.7 MEQ/L (5-15); BILIRUBIN,TOTAL 0.6 mg/dL (0.2-1.3); Calcium 10.4 mg/dL (8.4-10.2); Creatinine 1 0.79 mg/dL (0.52-1.04); EST GLOMERULAR FILTRATION RATE 97.5 ML/MIN; Potassium 4.4 mmol/L (3.5-5.1); Total Protein 8.2 g/dL (6.3-8.2)
[2023-11-16] MEDS ORDERED: Hydromorphone 1 mg/ml Injection ONE (21:32)
[2023-11-16] MEDS ORDERED: Compazine 10 MG/2 ML ONE (21:33)
[2023-11-16] MEDS: Hydromorphone 1 mg/ml Injection IM ONE (21:41)
[2023-11-16] MEDS: Compazine 10 MG/2 ML IM ONE (21:41)
[2023-11-16 21:51] LABS: Appearance Clear (Clear); Bacteria Rare /HPF (None Seen); Bilirubin Negative (Negative); Blood Negative (Negative); Epithelial Cells Few /HPF (None Seen); Glucose, Urine Negative (Negative); Ketones 40 (Negative); Leukocyte Esterase Trace (Negative); Nitrite Negative (Negative); Protein,Urine Dip 30 (Negative); Specific Gravity 1.025 (1.005-1.030)
[2023-11-16 21:58] LABS: ADD URINE CULTURE? YES (NO); Hyaline Casts 0-2 /LPF (0-2)
[2023-11-16] MEDS ORDERED: Sodium Chloride 0.9% 1000 ML 1,000 ML ONE (22:01)
[2023-11-16] MEDS: Sodium Chloride 0.9% 1000 ML 1,000 ML IV STA (22:17)
[2023-11-16] MEDS: Hydromorphone 1 mg/ml Injection IV ONE (22:43)
[2023-11-16] MEDS ORDERED: PROTONIX 40 MG IV IV ONE (22:44)
[2023-11-16] MEDS ORDERED: Lactated Ringers 1,000 ML IV ONE (22:44)
[2023-11-16] MEDS: Compazine 10 MG/2 ML IV ONE (22:45)
[2023-11-16] MEDS: Lactated Ringers 1,000 ML IV ONE (22:47)
[2023-11-16] MEDS: PROTONIX 40 MG IV IV ONE (22:47)
[2023-11-16] MEDS ORDERED: HEPARIN 5000 UNITS/0.5 ML (HIGH RISK MED) ONE (23:28)
[2023-11-16] MEDS ORDERED: ROCEPHIN 1 GM / 100 ML NaCl 1 GM/100 ML IVPB IV ONE (23:28)
[2023-11-16] MEDS: HEPARIN 5000 UNITS/0.5 ML (HIGH RISK MED) IV ONE (23:31)
[2023-11-16] MEDS: ROCEPHIN 1 GM / 100 ML NaCl 1 GM/100 ML IVPB IV ONE (23:31)
[2023-11-17 00:25] LABS: Amphetamine,Urine NEGATIVE (NEGATIVE); Barbiturate,Urine NEGATIVE (NEGATIVE); Benzodiazepine,Urine NEGATIVE (NEGATIVE); Cocaine,Urine NEGATIVE (NEGATIVE); Methadone,Urine NEGATIVE (NEGATIVE); Opiate,Urine NEGATIVE (NEGATIVE); PCP,Urine NEGATIVE (NEGATIVE); THC,Urine NEGATIVE (NEGATIVE)
[2023-11-17] MEDS ORDERED: NITRO-BID 2% UD PACKETS TOP ONE (03:50)
[2023-11-17] MEDS: Sodium Chloride 0.9% 1000 ML 1,000 ML IV SCH (04:09)
[2023-11-17] MEDS: Compazine 10 MG/2 ML IV ONE (04:09)
[2023-11-17] MEDS: TYLENOL 325 MG PO STA (04:10)
[2023-11-17 05:42] VITALS: O2SAT 97
[2023-11-17 06:34] VITALS: BP 98/64; PULSE 78; RESP 18
== END 2023-11-17 06:38 | disposition short-term general hospital (02) ==
LOC: ED 19:51
DX: I21.4 Non-ST elevation (NSTEMI) myocardial infarction (principal); R11.2 Nausea with vomiting, unspecified; R07.9 Chest pain, unspecified; E86.0 Dehydration; N39.0 Urinary tract infection, site not specified; E11.42 Type 2 diabetes mellitus with diabetic polyneuropathy; Z79.4 Long term (current) use of insulin; Z79.891 Long term (current) use of opiate analgesic; Z79.899 Other long term (current) drug therapy; Z72.0 Tobacco use
CPT/HCPCS: 36000; 36415; 80053; 80307; 81001; 82150; 83605; 83690; 84484; 85025; 87086; 93005; 96365; 96367; 96372; 96374; 96375; 99285; 99291; J0696; J1170; J1644; A9270-GY

== ENCOUNTER 2023-11-19 01:21 | Emergency (ER) | payer OTHER ==
--- NOTE | 2023-11-19 01:28 | ERPHSYRPT ---
- History of Present Illness Time Seen by Provider: 11/19/23 01:28 Historian: patient Exam Limitations: no limitations Physician History: The patient, with a recent history of myocardial infarction and cardiac catheterization, presents with persistent vomiting and associated chest pain. The cardiac catheterization was performed the previous day, and no stents were placed. The patient reports that the chest pain, which occurs with each episode of vomiting, has been a source of concern due to the recent cardiac event. The patient also expresses a desire to avoid taking unfamiliar pain medications, indicating a preference for treatments he has previously experienced. Despite a reported difficulty with venous access, the patient prefers intravenous administration of antiemetics, believing it to be more effective for his symptoms. The patient has a history of leaving the hospital against medical advice due to anxiety and nervousness but expresses a strong desire to remain in the hospital this time to manage the pain and vomiting. Timing/Duration: week(s) (1), worse Activities at Onset: rest Quality: sharpness, stabbing Location: epigastric Chest Pain Radiation: no radiation Severity of Pain-Max: severe Severity of Pain-Current: severe Modifying Factors: Improves With: nothing Associated Symptoms: nausea, vomiting, abdominal pain, hurts to breathe, No shortness of breath, No cough, No chills, No fever Prior Chest Pain/Cardiac Workup: cardiac cath Nitro Today/Relief: no nitro taken today Aspirin Treatment Today: no aspirin today Allergies/Adverse Reactions: promethazine [From Phenergan] Allergy (Severe, Verified 11/19/23 02:06) Difficulty Breathing only with iv phenergan ketorolac [From Toradol] Allergy (Intermediate, Verified 11/19/23 02:06) Rash sulfamethoxazole [From Bactrim] Allergy (Intermediate, Verified 11/19/23 02:06) Itching tramadol Allergy (Intermediate, Verified 11/19/23 02:06) Rash trimethoprim [From Bactrim] Allergy (Intermediate, Verified 11/19/23 02:06) Itching diphenhydramine [From Benadryl] Adverse Reaction (Severe, Verified 11/19/23 02:06) Difficulty Swallowing only with iv benadryl Home Medications: Propranolol HCl [Inderal ] 30 mg PO BID 01/11/22 [History] Acetaminophen 500 mg [Tylenol Extra Strength 500 mg] 1,000 mg PO Q6H PRN PRN 11/14/23 [History] Buprenorphine HCl/Naloxone HCl [Buprenorphine-Nalox 8-2 mg Tab] 1 each SL BID 11/14/23 [History] Buspirone HCl 5 mg [Buspar 5 mg] 15 mg PO TID 11/14/23 [History] Famotidine [Pepcid] 10 mg PO HS 11/14/23 [History] Insulin Degludec [Tresiba] 40 unit SQ UD 11/14/23 [History] Ondansetron ODT 4 MG [Zofran Odt 4 mg] 8 mg PO Q6H PRN PRN 11/14/23 [History] PANTOPRAZOLE 40 mg Tablet [Protonix 40MG Tablet] 40 mg PO DAILY 11/14/23 [History] Potassium Chloride [Klor-Con M20] 20 meq PO BID 11/14/23 [History] Prazosin HCl 1 mg PO HS 11/14/23 [History] Quetiapine Fumarate 100 mg [Seroquel 100 MG] 100 mg PO HS 11/14/23 [History] Hx Tetanus, Diphtheria Vaccination/Date Given: Yes Hx Influenza Vaccination/Date Given: No Hx Pneumococcal Vaccination/Date Given: No Travel Risk - Emerging Infectious Disease Are you exhibiting symptoms associated with any current EIDs: Yes Symptoms: Vomitting - Review of Systems All Other Systems: Reviewed and Negative - Past Medical History Pertinent Past Medical History: Yes Neurological History: Migraines, Peripheral Neuropathy ENT History: Other Cardiac History: No Pertinent History Respiratory History: No Pertinent History Endocrine Medical History: Diabetes Type II Musculoskeletal History: No Pertinent History GI Medical History: Gallbladder Disease, Pancreatitis History: No Pertinent History Psycho-Social History: Anxiety, Depression Female Reproductive Disorders: No Pertinent History Other Medical History: carpal tunnel bilaterally. RLS - Past Surgical History Past Surgical History: Yes Neuro Surgical History: No Pertinent History Cardiac: No Pertinent History Respiratory: No Pertinent History Gastrointestinal: Cholecystectomy Genitourinary: No Pertinent History Musculoskeletal: No Pertinent History Female Surgical History: Section, Tubal Ligation Other Surgical History: 2 c sections-2nd had tubal as well Significant Family History: no pertinent family hx - Female History Hx Last Menstrual Period: last month Hx Now: No - Social History Smoking Status: Current every day smoker How long have you smoked: 21 yrs Exposure to second hand smoke: Yes Alcohol Use: None Drug Use: none Patient Lives Alone: No - Social Determinants of Health Will the patient participate in the screening: Declined to provide - Nursing Vital Signs Nursing Vital Signs: Initial Vital Signs Temperature 98.9 F 11/19/23 01:24 Pulse Rate 92 H 11/19/23 01:24 Respiratory Rate 18 11/19/23 01:24 Blood Pressure 134/72 11/19/23 01:24 O2 Sat by Pulse Oximetry 97 11/19/23 01:24 Pain Scale Pain Intensity 7 - Physical Exam General Appearance: no apparent distress, obese Eye Exam: eyes nml inspection Ears, Nose, Throat Exam: normal ENT inspection Neck Exam: normal inspection, supple, full range of motion Respiratory Exam: normal breath sounds, lungs clear, airway intact, No respiratory distress Cardiovascular Exam: regular rate/rhythm, capillary refill <2 sec, No murmur, No edema Gastrointestinal/Abdomen Exam: soft, normal bowel sounds, tenderness (epigastric), No distention, No mass, No guarding, No rebound Extremity Exam: normal inspection, No swelling, No tenderness Neurologic Exam: alert, oriented x 3, cooperative Skin Exam: normal color, warm, dry, No rash SpO2 Interpretation: normal O2 Delivery: Room Air - Course Nursing assessment & vital signs reviewed: Yes EKG Interpreted by Me: RATE (97), Sinus Rhythm, Non-specific ST Changes, Other (low voltage) - Radiology Exams Chest X-ray Interpretation: Interpreted by me, Negative Ordered Tests: Active Orders 24 hr Category Date Time Status AMA [Release AMA] OM.NOW Care 11/19/23 03:08 Active [place] STAT Care 11/19/23 01:26 Active EKG-ER Only STAT Care 11/19/23 01:25 Active IV Insertion STAT Care 11/19/23 01:25 Active CHEST 1 VIEW (PORTABLE) Stat Exams 11/19/23 01:26 Taken CBC W DIFF Stat Lab 11/19/23 02:40 Completed CMP Stat Lab 11/19/23 02:40 Completed LIPASE Stat Lab 11/19/23 02:40 Completed NT PRO BNPII Stat Lab 11/19/23 02:40 Completed TROPONIN Q4H Lab 11/19/23 02:40 Completed Medication Summary Discontinued Medications Generic Name Dose Route Start Last Admin Trade Name Cheli PRN Reason Stop Dose Admin Droperidol 1.25 mg 11/19/23 01:35 Droperidol 5 Mg/2 Ml Vial IV 11/19/23 01:36 STAT ONE Sodium Chloride 1,000 mls @ 999 mls/hr 11/19/23 01:35 Sodium Chloride 0.9% 1000 Ml IV 11/19/23 02:35 .Q1H1M STA Lab/Rad Data: Laboratory Result Diagrams 11/19/23 02:40 11/19/23 02:40 Laboratory Results 11/19/23 11/19/23 11/19/23 Range/Units 02:40 02:40 02:40 WBC 4.0 (3.98-10.04) x10^3/uL RBC 4.40 (3.93-5.22) x10^6/uL Hgb 11.0 L (11.2-15.7) g/dL Hct 35.9 (34.1-44.9) % MCV 81.6 (79.4-94.8) fL MCH 25.0 L (25.6-32.2) pg MCHC 30.6 L (32.2-35.5) g/dL RDW 15.4 H (11.7-14.4) % Plt Count 242 (182-369) x10^3/uL MPV 9.5 (9.4-12.3) fL Gran % 57.5 (34.0-71.1) % Immature Gran % (Auto) 0.2 (0.001-0.429) % Nucleat RBC Rel Count 0.0 (0.00-0.2) % Eos # (Auto) 0.03 L (0.04-0.36) x10^3/uL Immature Gran # (Auto) 0.01 (0.001-0.031) x10^3u/L Absolute Lymphs (auto) 0.73 L (1.18-3.74) x10^3/uL Absolute Monos (auto) 0.92 H (0.24-0.86) x10^3/uL Absolute Nucleated RBC 0.00 (0.00-0.012) x10^3u/L Lymphocytes % 18.2 L (19.3-51.7) % Monocytes % 22.9 H (4.7-12.5) % Eosinophils % 0.7 (0.7-5.8) % Basophils % 0.5 (0.1-1.2) % Absolute Granulocytes 2.30 (1.56-6.13) x10^3/uL Basophils # 0.02 (0.01-0.08) x10^3/uL Sodium 138 (135-145) mmol/L Potassium 3.2 L (3.5-5.1) mmol/L Chloride 103 (98-107) mmol/L Carbon Dioxide 23 (22-30) mmol/L Anion Gap 14.9 (5-15) MEQ/L BUN 3 L (7-17) mg/dL Creatinine 0.83 (0.52-1.04) mg/dL Estimated GFR 91.9 ML/MIN Glucose 181 H (74-106) mg/dL Calcium 10.0 (8.4-10.2) mg/dL Total Bilirubin 0.30 (0.2-1.3) mg/dL AST 32 (14-36) U/L ALT 26 (0-35) U/L Alkaline Phosphatase 47 (38-126) U/L Troponin I 0.162 H* (0.000-0.033) ng/mL NT-Pro-B Natriuret Pep 5400 (<300) pg/mL Serum Total Protein 7.8 (6.3-8.2) g/dL Albumin 4.3 (3.5-5.0) g/dL Lipase 142 (23-300) U/L - Progress Progress: unchanged Air Movement: good Progress Note: Chest Pain Recent heart catheterization without stent placement. Chest pain exacerbated by vomiting. -Order labs to assess cardiac markers and electrolyte status. Vomiting Persistent despite previous treatment. Patient prefers IV administration for antiemetics due to perceived efficacy. -NS bolus -Droperidol given Anxiety Patient reports feeling anxious and nervous, contributing to desire to leave hospital prematurely. -Provide reassurance and support. -Consider consultation with mental health services if anxiety continues to interfere with medical care. Patient left AMA prior to labs returning, trop elevated at 0.1. Had heart cath yesterday. Blood Culture(s) Obtained: No Antibiotics given: No Counseled pt/family regarding: lab results, diagnosis, need for follow-up, rad results Medical Desision Making - Diagnostic Testing Diagnostic test were ordered, analyzed, and reviewed by me: Yes Radiological Interpretation: Interpreted by me - Risk of complications The pt has a mod risk of morbidity or mortality based on: Need for prescription drug management - Departure Departure Disposition: AMA Clinical Impression: Chest pain, Non-STEMI (non-ST elevated myocardial infarction), Vomiting Condition: Stable Critical Care Time: No Referrals: AMEE LOERA MD [Primary Care Provider] - Follow up/PCP as directed Instructions: Chest Pain (DC)
[2023-11-19] MEDS ORDERED: Sodium Chloride 0.9% 1000 ML 1,000 ML IV STA (01:35)
[2023-11-19 01:42] VITALS: TEMP 98.9
[2023-11-19 02:43] LABS: BASOPHIL % 0.5 % (0.1-1.2); Basophil (Absolute #) 0.02 x10^3/uL (0.01-0.08); Eosinophil % 0.7 % (0.7-5.8); Eosinophil (Absolute #) 0.03 x10^3/uL (0.04-0.36); Hematocrit 35.9 % (34.1-44.9); IMMATURE GRAN # 0.01 x10^3u/L (0.001-0.031); IMMATURE GRAN % 0.2 % (0.001-0.429); Lymphocyte (Absolute #) 0.73 x10^3/uL (1.18-3.74); Lymphocytes % 18.2 % (19.3-51.7); Mean Cell Volume 81.6 fL (79.4-94.8); Mean Corpuscular Hgb Concent. 30.6 g/dL (32.2-35.5); Mean Platelet Volume 9.5 fL (9.4-12.3); Monocyte (Absolute #) 0.92 x10^3/uL (0.24-0.86); Monocytes % 22.9 % (4.7-12.5); Neutrophil % 57.5 % (34.0-71.1); Platelet Count 242 x10^3/uL (182-369); Red Cell Distribution Width 15.4 % (11.7-14.4)
[2023-11-19 02:56] LABS: ALBUMIN 4.3 g/dL (3.5-5.0); ANION GAP 14.9 MEQ/L (5-15); BILIRUBIN,TOTAL 0.3 mg/dL (0.2-1.3); Creatinine 1 0.83 mg/dL (0.52-1.04); EST GLOMERULAR FILTRATION RATE 91.9 ML/MIN; Potassium 3.2 mmol/L (3.5-5.1); Total Protein 7.8 g/dL (6.3-8.2)
[2023-11-19 03:10] VITALS: BP 124/73; PULSE 114; RESP 16; O2SAT 98
[2023-11-19 03:38] LABS: TROPONIN 0.162 ng/mL (0.000-0.033)
--- NOTE | 2023-11-19 08:54 | XRAY ---
Indication: Chest pain. Comparison: October 10, 2023 Portable chest now demonstrates normal heart, lungs, and bony thorax.
== END 2023-11-19 03:05 | disposition left against medical advice (07) ==
LOC: ED 01:21
DX: R07.9 Chest pain, unspecified (principal); R11.10 Vomiting, unspecified; E11.9 Type 2 diabetes mellitus without complications; F17.200 Nicotine dependence, unspecified, uncomplicated; F41.9 Anxiety disorder, unspecified; Y84.0 Cardiac catheterization as the cause of abnormal reaction of the patient, or of later complication, without mention of misadventure at the time of the procedure; Z79.899 Other long term (current) drug therapy
CPT/HCPCS: 36415; 71045; 80053; 83690; 83880; 84484; 85025; 93005; 93041; 99283

== ENCOUNTER 2023-11-19 13:15 | Observation (INO) | payer OTHER ==
--- NOTE | 2023-11-19 13:24 | ERPHSYRPT ---
- History of Present Illness Time Seen by Provider: 11/19/23 13:23 Historian: patient, family Exam Limitations: no limitations Physician History: This is a 38-year-old white female patient who frequents our emergency room often for symptoms of primarily abdominal pain and vomiting. Patient has been seen in our emergency room 8 times for similar complaints since 10/10/2023. Patient was also seen in our emergency department late last evening and left AMA this morning. She was here during that visit for chest pain.. She is here this afternoon for intractable vomiting. The patient's labs of significance from this morning that I reviewed include a potassium of 3.2 BNP of 5400 and a troponin level of 0.162. Patient has a history of migraine headache, peripheral neuropathy, type 2 diabetes, pancreatitis, anxiety and depression. This past weekend, patient was transferred from our facility with a diagnosis of UTI and non-STEMI. Patient underwent a cardiac catheterization which did not show a stentable cardiac vessel lesion. Patient is taking an aspirin a day. Patient is a daily smoker of cigarettes. Patient denies chest pain at this time. Patient has had several CAT scans of the abdomen pelvis in the last week to 10 days. I do not feel she requires another CAT scan of the abdomen pelvis. Timing/Duration: other (Chronic, persistent) Quality: burning, pressure Abdominal Pain Onset Location: generalized abdomen Pain Radiation: no radiation Severity of Pain-Max: moderate Severity of Pain-Current: moderate Modifying Factors: Improves With: vomiting Associated Symptoms: nausea, vomiting, weakness, No chest pain, No diarrhea, No neck pain Previous symptoms: same symptoms as today, recently seen, recent hospitalization, recently treated Allergies/Adverse Reactions: promethazine [From Phenergan] Allergy (Severe, Verified 11/19/23 13:27) Difficulty Breathing only with iv phenergan ketorolac [From Toradol] Allergy (Intermediate, Verified 11/19/23 13:27) Rash sulfamethoxazole [From Bactrim] Allergy (Intermediate, Verified 11/19/23 13:27) Itching tramadol Allergy (Intermediate, Verified 11/19/23 13:27) Rash trimethoprim [From Bactrim] Allergy (Intermediate, Verified 11/19/23 13:27) Itching diphenhydramine [From Benadryl] Adverse Reaction (Severe, Verified 11/19/23 13:27) Difficulty Swallowing only with iv benadryl Home Medications: Propranolol HCl [Inderal ] 30 mg PO BID 01/11/22 [History] Acetaminophen 500 mg [Tylenol Extra Strength 500 mg] 1,000 mg PO Q6H PRN PRN 11/14/23 [History] Buprenorphine HCl/Naloxone HCl [Buprenorphine-Nalox 8-2 mg Tab] 1 each SL BID 11/14/23 [History] Buspirone HCl 5 mg [Buspar 5 mg] 15 mg PO TID 11/14/23 [History] Famotidine [Pepcid] 10 mg PO HS 11/14/23 [History] Insulin Degludec [Tresiba] 40 unit SQ UD 11/14/23 [History] Ondansetron ODT 4 MG [Zofran Odt 4 mg] 8 mg PO Q6H PRN PRN 11/14/23 [History] PANTOPRAZOLE 40 mg Tablet [Protonix 40MG Tablet] 40 mg PO DAILY 11/14/23 [History] Potassium Chloride [Klor-Con M20] 20 meq PO BID 11/14/23 [History] Prazosin HCl 1 mg PO HS 11/14/23 [History] Quetiapine Fumarate 100 mg [Seroquel 100 MG] 100 mg PO HS 11/14/23 [History] Hx Tetanus, Diphtheria Vaccination/Date Given: Yes Hx Influenza Vaccination/Date Given: No Hx Pneumococcal Vaccination/Date Given: No Travel Risk - International Travel Have you traveled outside of the country in past 3 weeks: No - Emerging Infectious Disease Are you exhibiting symptoms associated with any current EIDs: Yes Symptoms: Vomitting - Review of Systems Ears, Nose, & Throat: No Symptoms Respiratory: No Symptoms, No Cough, No Dyspnea Cardiac: No Symptoms, No Chest Pain Abdominal/Gastrointestinal: Abdominal Pain, Nausea, Vomiting, Appetite Changes Genitourinary Symptoms: No Symptoms Musculoskeletal: No Symptoms Skin: No Symptoms Neurological: No Symptoms Psychological: No Symptoms Endocrine: No Symptoms Hematologic/Lymphatic: No Symptoms Immunological/Allergic: No Symptoms All Other Systems: Reviewed and Negative - Past Medical History Pertinent Past Medical History: Yes Neurological History: Migraines, Peripheral Neuropathy ENT History: Other Cardiac History: No Pertinent History Respiratory History: No Pertinent History Endocrine Medical History: Diabetes Type II Musculoskeletal History: No Pertinent History GI Medical History: Gallbladder Disease, Pancreatitis History: No Pertinent History Psycho-Social History: Anxiety, Depression Female Reproductive Disorders: No Pertinent History Other Medical History: carpal tunnel bilaterally. RLS - Past Surgical History Past Surgical History: Yes Neuro Surgical History: No Pertinent History Cardiac: No Pertinent History Respiratory: No Pertinent History Gastrointestinal: Cholecystectomy Genitourinary: No Pertinent History Musculoskeletal: No Pertinent History Female Surgical History: Section, Tubal Ligation Other Surgical History: 2 c sections-2nd had tubal as well Significant Family History: no pertinent family hx - Female History Hx Last Menstrual Period: last month - Social History Smoking Status: Current every day smoker How long have you smoked: 21 yrs Exposure to second hand smoke: Yes Alcohol Use: None Drug Use: none Patient Lives Alone: No - Social Determinants of Health Will the patient participate in the screening: Declined to provide - Nursing Vital Signs Nursing Vital Signs: Initial Vital Signs Temperature 97.4 F 11/19/23 13:27 Pulse Rate 106 H 11/19/23 13:27 Respiratory Rate 18 11/19/23 13:27 Blood Pressure 130/77 11/19/23 13:27 O2 Sat by Pulse Oximetry 99 11/19/23 13:27 Pain Scale Pain Intensity 7 - Course Nursing assessment & vital signs reviewed: Yes Ordered Tests: Active Orders 24 hr Category Date Time Status EKG-ER Only STAT Care 11/19/23 13:45 Active IV Insertion STAT Care 11/19/23 13:45 Active Telemetry q4h Care 11/19/23 14:52 Active AMYLASE Stat Lab 11/19/23 14:00 Completed CBC W DIFF Stat Lab 11/19/23 14:00 Completed CMP Stat Lab 11/19/23 14:00 Completed LIPASE Stat Lab 11/19/23 14:00 Completed Lactic Acid Stat Lab 11/19/23 13:45 Completed MAG [MAGNESIUM] Stat Lab 11/19/23 14:00 Completed TROPONIN Q4H Lab 11/19/23 14:00 Completed TROPONIN Q4H Lab 11/19/23 17:45 Ordered TROPONIN Q4H Lab 11/19/23 21:45 Ordered UA W/RFX UR CULTURE Stat Lab 11/19/23 14:55 Completed Medication Summary Generic Name Dose Route Start Last Admin Trade Name Freq PRN Reason Stop Dose Admin Potassium Chloride 20 meq in 100 mls @ 50 mls/hr 11/19/23 14:52 11/19/23 15:00 Potassium Chloride 20 Meq In Water 100ml IV 11/19/23 16:51 50 mls/hr STAT ONE Administration Sodium Chloride 1,000 mls @ 100 mls/hr 11/19/23 15:00 11/19/23 15:00 Sodium Chloride 0.9% 1000 Ml IV 12/19/23 14:59 100 mls/hr .Q10H HINA Administration Discontinued Medications Generic Name Dose Route Start Last Admin Trade Name Freq PRN Reason Stop Dose Admin Hydromorphone HCl 1 mg 11/19/23 14:30 11/19/23 14:45 Hydromorphone 1 Mg/1ml Inj IV 11/19/23 14:31 1 mg STAT ONE Administration Hydromorphone HCl Confirm 11/19/23 14:44 Hydromorphone 1 Mg/1ml Inj Administered 11/19/23 14:45 Dose 1 mg .ROUTE .STK-MED ONE Sodium Chloride 1,000 mls @ 999 mls/hr 11/19/23 13:45 11/19/23 14:07 Sodium Chloride 0.9% 1000 Ml IV 11/19/23 14:45 999 mls/hr .Q1H1M STA Administration Sodium Chloride Confirm 11/19/23 14:04 Sodium Chloride 0.9% 1000 Ml Administered 11/19/23 14:05 Dose 1,000 mls @ ud .ROUTE .STK-MED ONE Potassium Chloride Confirm 11/19/23 14:58 Potassium Chloride 20 Meq In Water 100ml Administered 11/19/23 14:59 Dose 100 mls @ ud IV .STK-MED ONE Pantoprazole Sodium 40 mg 11/19/23 13:45 11/19/23 14:05 Pantoprazole 40 Mg Vial IV 11/19/23 13:46 40 mg STAT ONE Administration Pantoprazole Sodium Confirm 11/19/23 14:04 Pantoprazole 40 Mg Vial Administered 11/19/23 14:05 Dose 40 mg IV .STK-MED ONE Prochlorperazine Edisylate 5 mg 11/19/23 13:45 11/19/23 14:05 Prochlorperazine Edisylate 10 Mg/2 Ml Vial IV 08/19/24 13:46 5 mg STAT ONE Administration Prochlorperazine Edisylate Confirm 11/19/23 14:04 Prochlorperazine Edisylate 10 Mg/2 Ml Vial Administered 11/19/23 14:05 Dose 10 mg .ROUTE .[facility]-MED ONE Lab/Rad Data: Laboratory Result Diagrams 11/19/23 14:00 11/19/23 14:00 Laboratory Results 11/19/23 11/19/23 11/19/23 Range/Units 14:55 14:00 14:00 WBC (3.98-10.04) x10^3/uL RBC (3.93-5.22) x10^6/uL Hgb (11.2-15.7) g/dL Hct (34.1-44.9) % MCV (79.4-94.8) fL MCH (25.6-32.2) pg MCHC (32.2-35.5) g/dL RDW (11.7-14.4) % Plt Count (182-369) x10^3/uL MPV (9.4-12.3) fL Gran % (34.0-71.1) % Immature Gran % (Auto) (0.001-0.429) % Nucleat RBC Rel Count (0.00-0.2) % Eos # (Auto) (0.04-0.36) x10^3/uL Immature Gran # (Auto) (0.001-0.031) x10^3u/L Absolute Lymphs (auto) (1.18-3.74) x10^3/uL Absolute Monos (auto) (0.24-0.86) x10^3/uL Absolute Nucleated RBC (0.00-0.012) x10^3u/L Lymphocytes % (19.3-51.7) % Monocytes % (4.7-12.5) % Eosinophils % (0.7-5.8) % Basophils % (0.1-1.2) % Absolute Granulocytes (1.56-6.13) x10^3/uL Basophils # (0.01-0.08) x10^3/uL Sodium 140 (135-145) mmol/L Potassium 2.8 L* (3.5-5.1) mmol/L Chloride 103 (98-107) mmol/L Carbon Dioxide 26 (22-30) mmol/L Anion Gap 13.4 (5-15) MEQ/L BUN < 2 L (7-17) mg/dL Creatinine 0.76 (0.52-1.04) mg/dL Estimated GFR 102.2 ML/MIN Glucose 215 H (74-106) mg/dL Lactic Acid (0.4-2.0) Calcium 10.0 (8.4-10.2) mg/dL Magnesium 1.6 (1.6-2.3) mg/dL Total Bilirubin 0.20 (0.2-1.3) mg/dL AST 36 (14-36) U/L ALT 32 (0-35) U/L Alkaline Phosphatase 45 (38-126) U/L Troponin I 0.084 H* (0.000-0.033) ng/mL Serum Total Protein 7.3 (6.3-8.2) g/dL Albumin 4.1 (3.5-5.0) g/dL Amylase 86 (30-110) U/L Lipase 121 (23-300) U/L Urine Color Yellow (Yellow) Urine Appearance Turbid A (Clear) Urine pH 8.0 (4.6-8.0) Ur Specific [place] <=1.005 (1.005-1.030) Urine Protein Negative (Negative) Urine Glucose (UA) Negative (Negative) mg/dL Urine Ketones Negative (Negative) Urine Blood Negative (Negative) Urine Nitrite Negative (Negative) Urine Bilirubin Negative (Negative) Urine Urobilinogen 0.2 (0.2) mg/dL Ur Leukocyte Esterase Negative (Negative) U Hyaline Cast (Auto) NONE SEEN (0-2) /LPF Urine Microscopic RBC 0-2 (0-5) /HPF Urine Microscopic WBC 0-2 (0-5) /HPF Ur Epithelial Cells Rare (None Seen) /HPF Urine Bacteria None Seen (None Seen) /HPF Urine Culture Reflexed NO (NO) 11/19/23 11/19/23 Range/Units 14:00 13:45 WBC 4.0 (3.98-10.04) x10^3/uL RBC 4.45 (3.93-5.22) x10^6/uL Hgb 11.3 (11.2-15.7) g/dL Hct 35.4 (34.1-44.9) % MCV 79.6 (79.4-94.8) fL MCH 25.4 L (25.6-32.2) pg MCHC 31.9 L (32.2-35.5) g/dL RDW 15.6 H (11.7-14.4) % Plt Count 259 (182-369) x10^3/uL MPV 9.4 (9.4-12.3) fL Gran % 48.7 (34.0-71.1) % Immature Gran % (Auto) 0.3 (0.001-0.429) % Nucleat RBC Rel Count 0.0 (0.00-0.2) % Eos # (Auto) 0.02 L (0.04-0.36) x10^3/uL Immature Gran # (Auto) 0.01 (0.001-0.031) x10^3u/L Absolute Lymphs (auto) 1.10 L (1.18-3.74) x10^3/uL Absolute Monos (auto) 0.89 H (0.24-0.86) x10^3/uL Absolute Nucleated RBC 0.00 (0.00-0.012) x10^3u/L Lymphocytes % 27.6 (19.3-51.7) % Monocytes % 22.4 H (4.7-12.5) % Eosinophils % 0.5 L (0.7-5.8) % Basophils % 0.5 (0.1-1.2) % Absolute Granulocytes 1.94 (1.56-6.13) x10^3/uL Basophils # 0.02 (0.01-0.08) x10^3/uL Sodium (135-145) mmol/L Potassium (3.5-5.1) mmol/L Chloride (98-107) mmol/L Carbon Dioxide (22-30) mmol/L Anion Gap (5-15) MEQ/L BUN (7-17) mg/dL Creatinine (0.52-1.04) mg/dL Estimated GFR ML/MIN Glucose (74-106) mg/dL Lactic Acid 1.5 (0.4-2.0) Calcium (8.4-10.2) mg/dL Magnesium (1.6-2.3) mg/dL Total Bilirubin (0.2-1.3) mg/dL AST (14-36) U/L ALT (0-35) U/L Alkaline Phosphatase (38-126) U/L Troponin I (0.000-0.033) ng/mL Serum Total Protein (6.3-8.2) g/dL Albumin (3.5-5.0) g/dL Amylase (30-110) U/L Lipase (23-300) U/L Urine Color (Yellow) Urine Appearance (Clear) Urine pH (4.6-8.0) Ur Specific [place] (1.005-1.030) Urine Protein (Negative) Urine Glucose (UA) (Negative) mg/dL Urine Ketones (Negative) Urine Blood (Negative) Urine Nitrite (Negative) Urine Bilirubin (Negative) Urine Urobilinogen (0.2) mg/dL Ur Leukocyte Esterase (Negative) U Hyaline Cast (Auto) (0-2) /LPF Urine Microscopic RBC (0-5) /HPF Urine Microscopic WBC (0-5) /HPF Ur Epithelial Cells (None Seen) /HPF Urine Bacteria (None Seen) /HPF Urine Culture Reflexed (NO) - Progress Progress: improved, pain not gone completely, re-examined Progress Note: 11/19/23 15:01 My medical decision making and the assignment of moderate to high complexity of this patient's medical issue today is based on review of the patient's past medical history, review patient medication list, review the patient's drug allergy list, history present illness and physical findings on examination. 11/19/23 15:08 Differential diagnosis includes but is not limited to intractable vomiting, dehydration, electrolyte abnormalities Counseled pt/family regarding: lab results, diagnosis Medical Desision Making - Independent Historian Additional History obtained from: Spouse - Discussion of managment Care discussed with:: hospitalist Reviewed:: Test results, Need for additional workup Agreed on:: Treatment plan, place in obs - Diagnostic Testing Diagnostic test were ordered, analyzed, and reviewed by me: Yes - Risk of complications The pt has a high risk of morbidity or mortality based on: Decision regarding hospitilization or escalation of hosp level of care - Departure Departure Disposition: Observation Clinical Impression: Intractable vomiting, Hypokalemia Condition: Stable Critical Care Time: No Critical Care Time(excluding separately billable procedures): Critical 30-74 mins (40) Referrals: AMEE LOERA MD [Primary Care Provider] - Follow up/PCP as directed
[2023-11-19] MEDS ORDERED: Compazine 10 MG/2 ML ONE (14:04)
[2023-11-19] MEDS ORDERED: Sodium Chloride 0.9% 1000 ML 1,000 ML ONE ×2 (14:04→14:57)
[2023-11-19] MEDS ORDERED: PROTONIX 40 MG IV IV ONE (14:04)
[2023-11-19] MEDS: Compazine 10 MG/2 ML IV ONE (14:05)
[2023-11-19] MEDS: PROTONIX 40 MG IV IV ONE (14:05)
[2023-11-19] MEDS: Sodium Chloride 0.9% 1000 ML 1,000 ML IV STA (14:07)
[2023-11-19 14:08] LABS: Absolute Neutrophil Ct (ANC) 1.94 x10^3/uL (1.56-6.13); BASOPHIL % 0.5 % (0.1-1.2); Basophil (Absolute #) 0.02 x10^3/uL (0.01-0.08); Eosinophil % 0.5 % (0.7-5.8); Eosinophil (Absolute #) 0.02 x10^3/uL (0.04-0.36); Hematocrit 35.4 % (34.1-44.9); Hemoglobin 11.3 g/dL (11.2-15.7); IMMATURE GRAN # 0.01 x10^3u/L (0.001-0.031); IMMATURE GRAN % 0.3 % (0.001-0.429); Lymphocytes % 27.6 % (19.3-51.7); Mean Cell Volume 79.6 fL (79.4-94.8); Mean Corpuscular Hemoglobin 25.4 pg (25.6-32.2); Mean Corpuscular Hgb Concent. 31.9 g/dL (32.2-35.5); Mean Platelet Volume 9.4 fL (9.4-12.3); Monocyte (Absolute #) 0.89 x10^3/uL (0.24-0.86); Monocytes % 22.4 % (4.7-12.5); Neutrophil % 48.7 % (34.0-71.1); Platelet Count 259 x10^3/uL (182-369); Red Blood Count 4.45 x10^6/uL (3.93-5.22); Red Cell Distribution Width 15.6 % (11.7-14.4)
[2023-11-19 14:34] LABS: ALBUMIN 4.1 g/dL (3.5-5.0); ALKALINE PHOSPHATASE 45 U/L (38-126); AMYLASE 86 U/L (30-110); ANION GAP 13.4 MEQ/L (5-15); CHLORIDE 103 mmol/L (98-107); Carbon Dioxide 26 mmol/L (22-30); Creatinine 1 0.76 mg/dL (0.52-1.04); EST GLOMERULAR FILTRATION RATE 102.2 ML/MIN; Glucose 215 mg/dL (74-106); LIPASE 121 U/L (23-300); SGOT/AST 36 U/L (14-36); SGPT/ALT 32 U/L (0-35); SODIUM 140 mmol/L (135-145); Total Protein 7.3 g/dL (6.3-8.2)
[2023-11-19 14:38] LABS: BLOOD UREA NITROGEN < 2 mg/dL (7-17)
[2023-11-19 14:39] LABS: Potassium 2.8 mmol/L (3.5-5.1); TROPONIN 0.084 ng/mL (0.000-0.033)
[2023-11-19] MEDS ORDERED: Hydromorphone 1 mg/ml Injection ONE (14:44)
[2023-11-19] MEDS: Hydromorphone 1 mg/ml Injection IV ONE (14:45)
[2023-11-19] MEDS ORDERED: POTASSIUM CHLORIDE 20 mEq IN WATER 100ML 100 ML IV ONE (14:58)
[2023-11-19] MEDS: POTASSIUM CHLORIDE 20 mEq IN WATER 100ML 20 MEQ/100 ML BAG IV ONE ×2 (15:00→21:12)
[2023-11-19] MEDS: Sodium Chloride 0.9% 1000 ML 1,000 ML IV SCH (15:00)
[2023-11-19 15:04] LABS: Appearance Turbid (Clear); Bacteria None Seen /HPF (None Seen); Bilirubin Negative (Negative); Blood Negative (Negative); Epithelial Cells Rare /HPF (None Seen); Glucose, Urine Negative (Negative); Hyaline Casts NONE SEEN /LPF (0-2); Ketones Negative (Negative); Leukocyte Esterase Negative (Negative); Nitrite Negative (Negative); Protein,Urine Dip Negative (Negative); RBC 0-2 /HPF (0-5); Specific Gravity <=1.005 (1.005-1.030); Urobilinogen 0.2 mg/dL (0.2); WBC 0-2 /HPF (0-5)
[2023-11-19 15:06] LABS: ADD URINE CULTURE? NO (NO)
[2023-11-19] MEDS ORDERED: Sodium Chloride 0.9% 1000 ML 1,000 ML IV SCH (16:04)
[2023-11-19] MEDS ORDERED: Compazine 10 MG/2 ML IV PRN (16:04)
[2023-11-19] MEDS ORDERED: TYLENOL 325 MG PO PRN (16:04)
[2023-11-19] MEDS ORDERED: HUMULIN R SQ PRN (16:04)
--- NOTE | 2023-11-19 16:18 | PCM.HP ---
History of Present Illness - Chief Complaint Chief Complaint: Hypokalemia Date: 11/19/23 History of Present Illness: is a 38 year old female with a pmhx of migraines, type II DM, pancreatitis, anxiety, smoker, depression, and RLS who presented to the ED 11/19/23 with complaints of intractable nausea and vomiting. Of note, patient has has multiple ED visits - 8 since 10/10/23 with similar complaints. Recent heart cath which did not show a stentable cardiac vessel lesion. Patient states this has been going on for about 2 weeks. She has not been able to keep food/drink down and has been feeling weak and light-headed. She does report chronic pain. She has a GI appt in December. Also left AMA from ED this morning with complaints of chest pain - not having CP now, states only when she is vomiting. Denies fever,cough, sob, cp, ARAMBULA, or diarrhea. Denies alcohol or drug use. In ED,patient mildly tachycardic, otherwise stable vitals. Previous imaging reviewed from 11/19/23 - CXR with no acute cardiopulmonary processes. 11/14/23 CT abd/pelvis with no acute findings. 11/11/23 CT ab/pelvis - no acute findings. EKG from 11/19/23 NS Non-specific ST Changes, Other (low voltage). Labs remarkable for hypokalemia, BNP at 5400, and elevated trop x 2 (downtrending). Received compazine, potassium, and fluid bolus in ED. - Review of Systems Constitutional: Weakness Eyes: No Symptoms Ears, Nose, & Throat: No Symptoms Respiratory: No Symptoms Cardiac: No Symptoms Abdominal/Gastrointestinal: Abdominal Pain, Nausea, Vomiting Genitourinary Symptoms: No Symptoms Musculoskeletal: No Symptoms Skin: No Symptoms Neurological: Dizziness Psychological: No Symptoms Endocrine: No Symptoms Hematologic/Lymphatic: No Symptoms Immunological/Allergic: No Symptoms Medications & Allergies Home Medications: Home Medication List Propranolol HCl [Inderal ] 30 mg PO BID 01/11/22 [History Confirmed 11/16/23] Buspirone HCl 5 mg [Buspar 5 mg] 15 mg PO TID 11/14/23 [History Confirmed 11/16/23] Famotidine [Pepcid] 10 mg PO HS 11/14/23 [History Confirmed 11/16/23] Ondansetron ODT 4 MG [Zofran Odt 4 mg] 8 mg PO Q6H PRN PRN 11/14/23 [History Confirmed 11/16/23] PANTOPRAZOLE 40 mg Tablet [Protonix 40MG Tablet] 40 mg PO DAILY 11/14/23 [History Confirmed 11/16/23] Potassium Chloride [Klor-Con M20] 20 meq PO BID 11/14/23 [History Confirmed 11/16/23] Prazosin HCl 1 mg PO HS 11/14/23 [History Confirmed 11/16/23] Quetiapine Fumarate 100 mg [Seroquel 100 MG] 100 mg PO HS 11/14/23 [History Confirmed 11/16/23] Docusate Sodium 100 mg [Docusate Sodium 100 MG] 100 mg PO DAILY 11/19/23 [History Confirmed 11/19/23] Allergies/Adverse Reactions: Allergies Allergy/AdvReac Type Severity Reaction Status Date / Time promethazine [From Phenergan] Allergy Severe Difficulty Verified 11/19/23 16:07 Breathing ketorolac [From Toradol] Allergy Intermediate Rash Verified 11/19/23 16:07 sulfamethoxazole Allergy Intermediate Itching Verified 11/19/23 16:07 [From Bactrim] tramadol Allergy Intermediate Rash Verified 11/19/23 16:07 trimethoprim [From Bactrim] Allergy Intermediate Itching Verified 11/19/23 16:07 diphenhydramine AdvReac Severe Difficulty Verified 11/19/23 16:07 [From Benadryl] Swallowing - Past Medical History Past Medical History: Yes Neurological History: Migraines, Peripheral Neuropathy ENT History: Other Cardiac History: No Pertinent History Respiratory History: No Pertinent History Endocrine Medical History: Diabetes Type II Musculoskelatal History: No Pertinent History GI Medical History: Gallbladder Disease, Pancreatitis History: No Pertinent History Pyscho-Social History: Anxiety, Depression Reproductive Disorders: No Pertinent History Comment: carpal tunnel bilaterally. RLS - Female History Hx Last Menstrual Period: last month - Past Surgical History Past Surgical History: Yes Neuro Surgical History: No Pertinent History Cardiac History: No Pertinent History Respiratory Surgery: No Pertinent History GI Surgical History: Cholecystectomy Genitourinary Surgical Hx: No Pertinent History Musculskeletal Surgical Hx: No Pertinent History Female Surgical History: Section, Tubal Ligation Other Surgical History: 2 c sections-2nd had tubal as well Significant Family History: no pertinent family hx - Social History Smoking Status: Current every day smoker How long have you smoked: 21 yrs Exposure to second hand smoke: Yes Alcohol: None Drug Use: none - Social Determinants of Health Will the patient participate in the screening: Declined to provide Do you worry about a steady place to live?: Yes In the past 12 months,have you had to go without utilities?: No Have you or anyone in your house had to go without enough: No Transportation Issues: No Has anyone in your support network made you feel unsafe?: No Does the patient want assistance with any of the above?: No Comment: HAVE CAR BUT NOT ENOUGH [employer] FOR GAS AT TIMES. LIVING WITH [id number] AT [facility] AT [address] [place] [address] IN [facility]. WORRY ABOUT LIVING SITUATION. UNEMPLOYED BUT HAS JOB INTERVIEW AT [employer] TODAY. HAS FAMILY SUPPORT BUT STILL WORRY ABOUT $. - Physical Exam Vital Signs: Vital Signs - 24 hr Temp Pulse Resp BP Pulse Ox 11/19/23 15:01 94 H 18 139/83 99 11/19/23 14:24 92 H 18 126/74 100 11/19/23 13:27 97.4 F 106 H 18 130/77 99 General Appearance: no apparent distress Neurologic Exam: alert, oriented x 3, cooperative Eye Exam: PERRL/EOMI Ears, Nose, Throat Exam: normal ENT inspection Neck Exam: normal inspection Respiratory Exam: normal breath sounds, lungs clear Cardiovascular Exam: regular rate/rhythm, normal heart sounds Gastrointestinal/Abdomen Exam: soft Pelvic Exam: not done Rectal Exam: deferred Back Exam: normal inspection Extremity Exam: normal inspection Skin Exam: normal color Results - Labs Lab/Micro Results: Lab Results-Last 24 Hours 11/19/23 11/19/23 11/19/23 Range/Units 13:45 14:00 14:00 WBC 4.0 (3.98-10.04) x10^3/uL RBC 4.45 (3.93-5.22) x10^6/uL Hgb 11.3 (11.2-15.7) g/dL Hct 35.4 (34.1-44.9) % MCV 79.6 (79.4-94.8) fL MCH 25.4 L (25.6-32.2) pg MCHC 31.9 L (32.2-35.5) g/dL RDW 15.6 H (11.7-14.4) % Plt Count 259 (182-369) x10^3/uL MPV 9.4 (9.4-12.3) fL Gran % 48.7 (34.0-71.1) % Immature Gran % (Auto) 0.3 (0.001-0.429) % Nucleat RBC Rel Count 0.0 (0.00-0.2) % Eos # (Auto) 0.02 L (0.04-0.36) x10^3/uL Immature Gran # (Auto) 0.01 (0.001-0.031) x10^3u/L Absolute Lymphs (auto) 1.10 L (1.18-3.74) x10^3/uL Absolute Monos (auto) 0.89 H (0.24-0.86) x10^3/uL Absolute Nucleated RBC 0.00 (0.00-0.012) x10^3u/L Lymphocytes % 27.6 (19.3-51.7) % Monocytes % 22.4 H (4.7-12.5) % Eosinophils % 0.5 L (0.7-5.8) % Basophils % 0.5 (0.1-1.2) % Absolute Granulocytes 1.94 (1.56-6.13) x10^3/uL Basophils # 0.02 (0.01-0.08) x10^3/uL Sodium 140 (135-145) mmol/L Potassium 2.8 L* (3.5-5.1) mmol/L Chloride 103 (98-107) mmol/L Carbon Dioxide 26 (22-30) mmol/L Anion Gap 13.4 (5-15) MEQ/L BUN < 2 L (7-17) mg/dL Creatinine 0.76 (0.52-1.04) mg/dL Estimated GFR 102.2 ML/MIN Glucose 215 H (74-106) mg/dL Lactic Acid 1.5 (0.4-2.0) Calcium 10.0 (8.4-10.2) mg/dL Magnesium (1.6-2.3) mg/dL Total Bilirubin 0.20 (0.2-1.3) mg/dL AST 36 (14-36) U/L ALT 32 (0-35) U/L Alkaline Phosphatase 45 (38-126) U/L Troponin I 0.084 H* (0.000-0.033) ng/mL Serum Total Protein 7.3 (6.3-8.2) g/dL Albumin 4.1 (3.5-5.0) g/dL Amylase 86 (30-110) U/L Lipase 121 (23-300) U/L Urine Color (Yellow) Urine Appearance (Clear) Urine pH (4.6-8.0) Ur Specific Dewey (1.005-1.030) Urine Protein (Negative) Urine Glucose (UA) (Negative) mg/dL Urine Ketones (Negative) Urine Blood (Negative) Urine Nitrite (Negative) Urine Bilirubin (Negative) Urine Urobilinogen (0.2) mg/dL Ur Leukocyte Esterase (Negative) U Hyaline Cast (Auto) (0-2) /LPF Urine Microscopic RBC (0-5) /HPF Urine Microscopic WBC (0-5) /HPF Ur Epithelial Cells (None Seen) /HPF Urine Bacteria (None Seen) /HPF Urine Culture Reflexed (NO) 11/19/23 11/19/23 Range/Units 14:00 14:55 WBC (3.98-10.04) x10^3/uL RBC (3.93-5.22) x10^6/uL Hgb (11.2-15.7) g/dL Hct (34.1-44.9) % MCV (79.4-94.8) fL MCH (25.6-32.2) pg MCHC (32.2-35.5) g/dL RDW (11.7-14.4) % Plt Count (182-369) x10^3/uL MPV (9.4-12.3) fL Gran % (34.0-71.1) % Immature Gran % (Auto) (0.001-0.429) % Nucleat RBC Rel Count (0.00-0.2) % Eos # (Auto) (0.04-0.36) x10^3/uL Immature Gran # (Auto) (0.001-0.031) x10^3u/L Absolute Lymphs (auto) (1.18-3.74) x10^3/uL Absolute Monos (auto) (0.24-0.86) x10^3/uL Absolute Nucleated RBC (0.00-0.012) x10^3u/L Lymphocytes % (19.3-51.7) % Monocytes % (4.7-12.5) % Eosinophils % (0.7-5.8) % Basophils % (0.1-1.2) % Absolute Granulocytes (1.56-6.13) x10^3/uL Basophils # (0.01-0.08) x10^3/uL Sodium (135-145) mmol/L Potassium (3.5-5.1) mmol/L Chloride (98-107) mmol/L Carbon Dioxide (22-30) mmol/L Anion Gap (5-15) MEQ/L BUN (7-17) mg/dL Creatinine (0.52-1.04) mg/dL Estimated GFR ML/MIN Glucose (74-106) mg/dL Lactic Acid (0.4-2.0) Calcium (8.4-10.2) mg/dL Magnesium 1.6 (1.6-2.3) mg/dL Total Bilirubin (0.2-1.3) mg/dL AST (14-36) U/L ALT (0-35) U/L Alkaline Phosphatase (38-126) U/L Troponin I (0.000-0.033) ng/mL Serum Total Protein (6.3-8.2) g/dL Albumin (3.5-5.0) g/dL Amylase (30-110) U/L Lipase (23-300) U/L Urine Color Yellow (Yellow) Urine Appearance Turbid A (Clear) Urine pH 8.0 (4.6-8.0) Ur Specific Dewey <=1.005 (1.005-1.030) Urine Protein Negative (Negative) Urine Glucose (UA) Negative (Negative) mg/dL Urine Ketones Negative (Negative) Urine Blood Negative (Negative) Urine Nitrite Negative (Negative) Urine Bilirubin Negative (Negative) Urine Urobilinogen 0.2 (0.2) mg/dL Ur Leukocyte Esterase Negative (Negative) U Hyaline Cast (Auto) NONE SEEN (0-2) /LPF Urine Microscopic RBC 0-2 (0-5) /HPF Urine Microscopic WBC 0-2 (0-5) /HPF Ur Epithelial Cells Rare (None Seen) /HPF Urine Bacteria None Seen (None Seen) /HPF Urine Culture Reflexed NO (NO) Assessment/Plan (1) Hypokalemia Current Visit: Yes Status: Acute Assessment & Plan: -Potassium level at 2.8 on admission, secondary to GI loss -replenish per protocol -tele Code(s): E87.6 - HYPOKALEMIA (2) Intractable vomiting Current Visit: Yes Status: Acute Assessment & Plan: -Multiple CT scans over the past several weeks with no acute findings -Supportive care - anti-emetics, IVF -UDS -NPO - ADAT -Gastric emptying study - ? secondary to gastroparesis Code(s): R11.10 - VOMITING, UNSPECIFIED (3) Diabetes mellitus Current Visit: Yes Status: Acute Assessment & Plan: -ADA diet when able -A1c at 6.75 on 11/14/23 -SSI when able to consume diet Code(s): E11.9 - TYPE 2 DIABETES MELLITUS WITHOUT COMPLICATIONS (4) Abdominal pain Current Visit: No Status: Acute Assessment & Plan: -see intractable n/v Code(s): R10.9 - UNSPECIFIED ABDOMINAL PAIN (5) Anxiety and depression Current Visit: No Status: Acute Assessment & Plan: -continue home meds Code(s): F41.9 - ANXIETY DISORDER, UNSPECIFIED; F32.A - DEPRESSION, UNSPECIFIED (6) Smoker Current Visit: Yes Status: Acute Assessment & Plan: -1/2 PPD -Advised cessation -nicotine patch -VTE bilat SCD -PPI - protonix Dispo: 1-2 days Code(s): F17.200 - NICOTINE DEPENDENCE, UNSPECIFIED, UNCOMPLICATED Telemedicine Encounter - Telemedicine Encounter Telemedicine Encounter: "The entirety of this encounter was performed via Telemedicine" This visit was performed using real-time audio and video connection between my location and thepatients locationwith the assistance of a surrogateat the patients location. Written or verbal consent was obtained from the patient/guardian to perform this visit [facility]. Any patient questions regarding the telemedicine interaction were answered.
[2023-11-19] MEDS ORDERED: HUMALOG SQ PRN (16:49)
[2023-11-19] MEDS ORDERED: MEDICATION INTERVENTION MC SCH (17:45)
[2023-11-19] MEDS: PROTONIX 40 MG IV IV SCH (18:28)
[2023-11-19] MEDS: NICODERM CQ 14 MG TOP SCH (18:28)
[2023-11-19 19:46] LABS: Amphetamine,Urine NEGATIVE (NEGATIVE); Barbiturate,Urine NEGATIVE (NEGATIVE); Benzodiazepine,Urine NEGATIVE (NEGATIVE); Cocaine,Urine NEGATIVE (NEGATIVE); Methadone,Urine NEGATIVE (NEGATIVE); Opiate,Urine NEGATIVE (NEGATIVE); PCP,Urine NEGATIVE (NEGATIVE); THC,Urine NEGATIVE (NEGATIVE)
[2023-11-19] MEDS: Inderal PO SCH (21:13)
[2023-11-19] MEDS: Pepcid 20 MG PO SCH (21:13)
[2023-11-19] MEDS: BUSPAR 5 MG PO SCH (21:13)
[2023-11-19] MEDS: Klor Con PO SCH (21:13)
[2023-11-19] MEDS: Seroquel 100 MG PO SCH (21:13)
[2023-11-19] MEDS: NORCO 5/325 MG PO PRN (21:19)
[2023-11-19] MEDS ORDERED: NON-FORMULARY ITEM (Potassium Chloride [Klor-Con M20] 20 MEQ Tab.Er.Prt) PO SCH (22:00)
[2023-11-19] MEDS ORDERED: NON-FORMULARY ITEM (Prazosin Hcl [Prazosin Hcl] 1 MG Capsule) PO SCH (22:00)
[2023-11-20 03:11] LABS: Absolute Neutrophil Ct (ANC) 1.37 x10^3/uL (1.56-6.13); BASOPHIL % 0.8 % (0.1-1.2); Basophil (Absolute #) 0.03 x10^3/uL (0.01-0.08); Eosinophil % 2.1 % (0.7-5.8); Eosinophil (Absolute #) 0.08 x10^3/uL (0.04-0.36); Hematocrit 34.6 % (34.1-44.9); Hemoglobin 10.7 g/dL (11.2-15.7); IMMATURE GRAN # 0.02 x10^3u/L (0.001-0.031); IMMATURE GRAN % 0.5 % (0.001-0.429); Lymphocytes % 41.6 % (19.3-51.7); Mean Cell Volume 82.4 fL (79.4-94.8); Mean Corpuscular Hemoglobin 25.5 pg (25.6-32.2); Mean Corpuscular Hgb Concent. 30.9 g/dL (32.2-35.5); Mean Platelet Volume 9.8 fL (9.4-12.3); Monocyte (Absolute #) 0.75 x10^3/uL (0.24-0.86); Monocytes % 19.5 % (4.7-12.5); Neutrophil % 35.5 % (34.0-71.1); Platelet Count 243 x10^3/uL (182-369); Red Cell Distribution Width 15.8 % (11.7-14.4); White Blood Count 3.9 x10^3/uL (3.98-10.04)
[2023-11-20 03:26] LABS: ALBUMIN 3.3 g/dL (3.5-5.0); ALKALINE PHOSPHATASE 41 U/L (38-126); ANION GAP 11.2 MEQ/L (5-15); CHLORIDE 108 mmol/L (98-107); Calcium 9.2 mg/dL (8.4-10.2); Carbon Dioxide 23 mmol/L (22-30); Creatinine 1 0.82 mg/dL (0.52-1.04); EST GLOMERULAR FILTRATION RATE 93.3 ML/MIN; Glucose 110 mg/dL (74-106); Potassium 3.4 mmol/L (3.5-5.1); SGOT/AST 49 U/L (14-36); SGPT/ALT 32 U/L (0-35); SODIUM 138 mmol/L (135-145); Total Protein 6.4 g/dL (6.3-8.2)
[2023-11-20 03:27] LABS: BLOOD UREA NITROGEN < 2 mg/dL (7-17)
[2023-11-20 04:37] VITALS: RESP 16
--- NOTE | 2023-11-20 05:11 | PCM.NOTE ---
Date and Time: 11/20/23 0509 Subjective Assessment: is a 38 year old female with a pmhx of migraines, type II DM, pancreatitis, anxiety, smoker, depression, and RLS who presented to the ED 11/19/23 with complaints of intractable nausea and vomiting. Of note, patient has has multiple ED visits - 8 since 10/10/23 with similar complaints. Recent heart cath which did not show a stentable cardiac vessel lesion. Patient states this has been going on for about 2 weeks. She has not been able to keep food/drink down and has been feeling weak and light-headed. She does report chronic pain. She has a GI appt in December. Also left AMA from ED this morning with complaints of chest pain - not having CP now, states only when she is vomiting. Denies fever,cough, sob, cp, ARAMBULA, or diarrhea. Denies alcohol or drug use. In ED,patient mildly tachycardic, otherwise stable vitals. Previous imaging reviewed from 11/19/23 - CXR with no acute cardiopulmonary processes. 11/14/23 CT abd/pelvis with no acute findings. 11/11/23 CT ab/pelvis - no acute findings. EKG from 11/19/23 NS Non-specific ST Changes, Other (low voltage). Labs remarkable for hypokalemia, BNP at 5400, and elevated trop x 2 (downtrending). Received compazine, potassium, and fluid bolus in ED. Objective Data Vital Signs: Vital Signs - 24 hr Temp Pulse Resp BP Pulse Ox 11/20/23 04:00 97.9 F 64 16 107/52 96 11/20/23 00:00 97.9 F 56 L 17 109/65 97 11/19/23 20:00 98 F 60 27 H 111/68 97 11/19/23 19:30 97.6 F 71 20 115/68 97 11/19/23 15:01 94 H 18 139/83 99 11/19/23 14:24 92 H 18 126/74 100 11/19/23 13:27 97.4 F 106 H 18 130/77 99 Pain Assessment - Last Documented Pain Intensity 0 Pain Scale Used 0-10 Pain Scale Intake and Output: Intake & Output 11/17/23 11/18/23 11/19/23 11/20/23 11:59 11:59 11:59 11:59 Output Total 250 Balance -250 Weight 82.1 kg Lab Results: Lab Results-Last 24 Hours 11/19/23 11/19/23 11/19/23 Range/Units 13:45 14:00 14:00 WBC 4.0 (3.98-10.04) x10^3/uL RBC 4.45 (3.93-5.22) x10^6/uL Hgb 11.3 (11.2-15.7) g/dL Hct 35.4 (34.1-44.9) % MCV 79.6 (79.4-94.8) fL MCH 25.4 L (25.6-32.2) pg MCHC 31.9 L (32.2-35.5) g/dL RDW 15.6 H (11.7-14.4) % Plt Count 259 (182-369) x10^3/uL MPV 9.4 (9.4-12.3) fL Gran % 48.7 (34.0-71.1) % Immature Gran % (Auto) 0.3 (0.001-0.429) % Nucleat RBC Rel Count 0.0 (0.00-0.2) % Eos # (Auto) 0.02 L (0.04-0.36) x10^3/uL Immature Gran # (Auto) 0.01 (0.001-0.031) x10^3u/L Absolute Lymphs (auto) 1.10 L (1.18-3.74) x10^3/uL Absolute Monos (auto) 0.89 H (0.24-0.86) x10^3/uL Absolute Nucleated RBC 0.00 (0.00-0.012) x10^3u/L Lymphocytes % 27.6 (19.3-51.7) % Monocytes % 22.4 H (4.7-12.5) % Eosinophils % 0.5 L (0.7-5.8) % Basophils % 0.5 (0.1-1.2) % Absolute Granulocytes 1.94 (1.56-6.13) x10^3/uL Basophils # 0.02 (0.01-0.08) x10^3/uL Sodium 140 (135-145) mmol/L Potassium 2.8 L* (3.5-5.1) mmol/L Chloride 103 (98-107) mmol/L Carbon Dioxide 26 (22-30) mmol/L Anion Gap 13.4 (5-15) MEQ/L BUN < 2 L (7-17) mg/dL Creatinine 0.76 (0.52-1.04) mg/dL Estimated GFR 102.2 ML/MIN Glucose 215 H (74-106) mg/dL POC Glucometer (74 to 106) mg/dL Lactic Acid 1.5 (0.4-2.0) Calcium 10.0 (8.4-10.2) mg/dL Magnesium (1.6-2.3) mg/dL Total Bilirubin 0.20 (0.2-1.3) mg/dL AST 36 (14-36) U/L ALT 32 (0-35) U/L Alkaline Phosphatase 45 (38-126) U/L Troponin I 0.084 H* (0.000-0.033) ng/mL Serum Total Protein 7.3 (6.3-8.2) g/dL Albumin 4.1 (3.5-5.0) g/dL Amylase 86 (30-110) U/L Lipase 121 (23-300) U/L Urine Color (Yellow) Urine Appearance (Clear) Urine pH (4.6-8.0) Ur Specific [place] (1.005-1.030) Urine Protein (Negative) Urine Glucose (UA) (Negative) mg/dL Urine Ketones (Negative) Urine Blood (Negative) Urine Nitrite (Negative) Urine Bilirubin (Negative) Urine Urobilinogen (0.2) mg/dL Ur Leukocyte Esterase (Negative) U Hyaline Cast (Auto) (0-2) /LPF Urine Microscopic RBC (0-5) /HPF Urine Microscopic WBC (0-5) /HPF Ur Epithelial Cells (None Seen) /HPF Urine Bacteria (None Seen) /HPF Urine Culture Reflexed (NO) Urine Opiates Level (NEGATIVE) Ur Methadone (NEGATIVE) Urine Barbiturates (NEGATIVE) Ur Phencyclidine (PCP) (NEGATIVE) Urine Amphetamine (NEGATIVE) U Benzodiazepine Level (NEGATIVE) Urine Cocaine (NEGATIVE) Urine Marijuana (THC) (NEGATIVE) 11/19/23 11/19/23 11/19/23 Range/Units 14:00 14:55 14:55 WBC (3.98-10.04) x10^3/uL RBC (3.93-5.22) x10^6/uL Hgb (11.2-15.7) g/dL Hct (34.1-44.9) % MCV (79.4-94.8) fL MCH (25.6-32.2) pg MCHC (32.2-35.5) g/dL RDW (11.7-14.4) % Plt Count (182-369) x10^3/uL MPV (9.4-12.3) fL Gran % (34.0-71.1) % Immature Gran % (Auto) (0.001-0.429) % Nucleat RBC Rel Count (0.00-0.2) % Eos # (Auto) (0.04-0.36) x10^3/uL Immature Gran # (Auto) (0.001-0.031) x10^3u/L Absolute Lymphs (auto) (1.18-3.74) x10^3/uL Absolute Monos (auto) (0.24-0.86) x10^3/uL Absolute Nucleated RBC (0.00-0.012) x10^3u/L Lymphocytes % (19.3-51.7) % Monocytes % (4.7-12.5) % Eosinophils % (0.7-5.8) % Basophils % (0.1-1.2) % Absolute Granulocytes (1.56-6.13) x10^3/uL Basophils # (0.01-0.08) x10^3/uL Sodium (135-145) mmol/L Potassium (3.5-5.1) mmol/L Chloride (98-107) mmol/L Carbon Dioxide (22-30) mmol/L Anion Gap (5-15) MEQ/L BUN (7-17) mg/dL Creatinine (0.52-1.04) mg/dL Estimated GFR ML/MIN Glucose (74-106) mg/dL POC Glucometer (74 to 106) mg/dL Lactic Acid (0.4-2.0) Calcium (8.4-10.2) mg/dL Magnesium 1.6 (1.6-2.3) mg/dL Total Bilirubin (0.2-1.3) mg/dL AST (14-36) U/L ALT (0-35) U/L Alkaline Phosphatase (38-126) U/L Troponin I (0.000-0.033) ng/mL Serum Total Protein (6.3-8.2) g/dL Albumin (3.5-5.0) g/dL Amylase (30-110) U/L Lipase (23-300) U/L Urine Color Yellow (Yellow) Urine Appearance Turbid A (Clear) Urine pH 8.0 (4.6-8.0) Ur Specific [place] <=1.005 (1.005-1.030) Urine Protein Negative (Negative) Urine Glucose (UA) Negative (Negative) mg/dL Urine Ketones Negative (Negative) Urine Blood Negative (Negative) Urine Nitrite Negative (Negative) Urine Bilirubin Negative (Negative) Urine Urobilinogen 0.2 (0.2) mg/dL Ur Leukocyte Esterase Negative (Negative) U Hyaline Cast (Auto) NONE SEEN (0-2) /LPF Urine Microscopic RBC 0-2 (0-5) /HPF Urine Microscopic WBC 0-2 (0-5) /HPF Ur Epithelial Cells Rare (None Seen) /HPF Urine Bacteria None Seen (None Seen) /HPF Urine Culture Reflexed NO (NO) Urine Opiates Level NEGATIVE (NEGATIVE) Ur Methadone NEGATIVE (NEGATIVE) Urine Barbiturates NEGATIVE (NEGATIVE) Ur Phencyclidine (PCP) NEGATIVE (NEGATIVE) Urine Amphetamine NEGATIVE (NEGATIVE) U Benzodiazepine Level NEGATIVE (NEGATIVE) Urine Cocaine NEGATIVE (NEGATIVE) Urine Marijuana (THC) NEGATIVE (NEGATIVE) 11/19/23 11/19/23 11/19/23 Range/Units 17:04 17:42 20:00 WBC (3.98-10.04) x10^3/uL RBC (3.93-5.22) x10^6/uL Hgb (11.2-15.7) g/dL Hct (34.1-44.9) % MCV (79.4-94.8) fL MCH (25.6-32.2) pg MCHC (32.2-35.5) g/dL RDW (11.7-14.4) % Plt Count (182-369) x10^3/uL MPV (9.4-12.3) fL Gran % (34.0-71.1) % Immature Gran % (Auto) (0.001-0.429) % Nucleat RBC Rel Count (0.00-0.2) % Eos # (Auto) (0.04-0.36) x10^3/uL Immature Gran # (Auto) (0.001-0.031) x10^3u/L Absolute Lymphs (auto) (1.18-3.74) x10^3/uL Absolute Monos (auto) (0.24-0.86) x10^3/uL Absolute Nucleated RBC (0.00-0.012) x10^3u/L Lymphocytes % (19.3-51.7) % Monocytes % (4.7-12.5) % Eosinophils % (0.7-5.8) % Basophils % (0.1-1.2) % Absolute Granulocytes (1.56-6.13) x10^3/uL Basophils # (0.01-0.08) x10^3/uL Sodium (135-145) mmol/L Potassium (3.5-5.1) mmol/L Chloride (98-107) mmol/L Carbon Dioxide (22-30) mmol/L Anion Gap (5-15) MEQ/L BUN (7-17) mg/dL Creatinine (0.52-1.04) mg/dL Estimated GFR ML/MIN Glucose (74-106) mg/dL POC Glucometer 133 H (74 to 106) mg/dL Lactic Acid (0.4-2.0) Calcium (8.4-10.2) mg/dL Magnesium (1.6-2.3) mg/dL Total Bilirubin (0.2-1.3) mg/dL AST (14-36) U/L ALT (0-35) U/L Alkaline Phosphatase (38-126) U/L Troponin I 0.075 H* 0.071 H* (0.000-0.033) ng/mL Serum Total Protein (6.3-8.2) g/dL Albumin (3.5-5.0) g/dL Amylase (30-110) U/L Lipase (23-300) U/L Urine Color (Yellow) Urine Appearance (Clear) Urine pH (4.6-8.0) Ur Specific [place] (1.005-1.030) Urine Protein (Negative) Urine Glucose (UA) (Negative) mg/dL Urine Ketones (Negative) Urine Blood (Negative) Urine Nitrite (Negative) Urine Bilirubin (Negative) Urine Urobilinogen (0.2) mg/dL Ur Leukocyte Esterase (Negative) U Hyaline Cast (Auto) (0-2) /LPF Urine Microscopic RBC (0-5) /HPF Urine Microscopic WBC (0-5) /HPF Ur Epithelial Cells (None Seen) /HPF Urine Bacteria (None Seen) /HPF Urine Culture Reflexed (NO) Urine Opiates Level (NEGATIVE) Ur Methadone (NEGATIVE) Urine Barbiturates (NEGATIVE) Ur Phencyclidine (PCP) (NEGATIVE) Urine Amphetamine (NEGATIVE) U Benzodiazepine Level (NEGATIVE) Urine Cocaine (NEGATIVE) Urine Marijuana (THC) (NEGATIVE) 11/19/23 11/19/23 11/19/23 Range/Units 20:00 20:22 23:24 WBC (3.98-10.04) x10^3/uL RBC (3.93-5.22) x10^6/uL Hgb (11.2-15.7) g/dL Hct (34.1-44.9) % MCV (79.4-94.8) fL MCH (25.6-32.2) pg MCHC (32.2-35.5) g/dL RDW (11.7-14.4) % Plt Count (182-369) x10^3/uL MPV (9.4-12.3) fL Gran % (34.0-71.1) % Immature Gran % (Auto) (0.001-0.429) % Nucleat RBC Rel Count (0.00-0.2) % Eos # (Auto) (0.04-0.36) x10^3/uL Immature Gran # (Auto) (0.001-0.031) x10^3u/L Absolute Lymphs (auto) (1.18-3.74) x10^3/uL Absolute Monos (auto) (0.24-0.86) x10^3/uL Absolute Nucleated RBC (0.00-0.012) x10^3u/L Lymphocytes % (19.3-51.7) % Monocytes % (4.7-12.5) % Eosinophils % (0.7-5.8) % Basophils % (0.1-1.2) % Absolute Granulocytes (1.56-6.13) x10^3/uL Basophils # (0.01-0.08) x10^3/uL Sodium (135-145) mmol/L Potassium 3.2 L (3.5-5.1) mmol/L Chloride (98-107) mmol/L Carbon Dioxide (22-30) mmol/L Anion Gap (5-15) MEQ/L BUN (7-17) mg/dL Creatinine (0.52-1.04) mg/dL Estimated GFR ML/MIN Glucose (74-106) mg/dL POC Glucometer 104 102 (74 to 106) mg/dL Lactic Acid (0.4-2.0) Calcium (8.4-10.2) mg/dL Magnesium (1.6-2.3) mg/dL Total Bilirubin (0.2-1.3) mg/dL AST (14-36) U/L ALT (0-35) U/L Alkaline Phosphatase (38-126) U/L Troponin I (0.000-0.033) ng/mL Serum Total Protein (6.3-8.2) g/dL Albumin (3.5-5.0) g/dL Amylase (30-110) U/L Lipase (23-300) U/L Urine Color (Yellow) Urine Appearance (Clear) Urine pH (4.6-8.0) Ur Specific [place] (1.005-1.030) Urine Protein (Negative) Urine Glucose (UA) (Negative) mg/dL Urine Ketones (Negative) Urine Blood (Negative) Urine Nitrite (Negative) Urine Bilirubin (Negative) Urine Urobilinogen (0.2) mg/dL Ur Leukocyte Esterase (Negative) U Hyaline Cast (Auto) (0-2) /LPF Urine Microscopic RBC (0-5) /HPF Urine Microscopic WBC (0-5) /HPF Ur Epithelial Cells (None Seen) /HPF Urine Bacteria (None Seen) /HPF Urine Culture Reflexed (NO) Urine Opiates Level (NEGATIVE) Ur Methadone (NEGATIVE) Urine Barbiturates (NEGATIVE) Ur Phencyclidine (PCP) (NEGATIVE) Urine Amphetamine (NEGATIVE) U Benzodiazepine Level (NEGATIVE) Urine Cocaine (NEGATIVE) Urine Marijuana (THC) (NEGATIVE) 11/20/23 11/20/23 11/20/23 Range/Units 02:55 02:55 04:20 WBC 3.9 L (3.98-10.04) x10^3/uL RBC 4.20 (3.93-5.22) x10^6/uL Hgb 10.7 L (11.2-15.7) g/dL Hct 34.6 (34.1-44.9) % MCV 82.4 (79.4-94.8) fL MCH 25.5 L (25.6-32.2) pg MCHC 30.9 L (32.2-35.5) g/dL RDW 15.8 H (11.7-14.4) % Plt Count 243 (182-369) x10^3/uL MPV 9.8 (9.4-12.3) fL Gran % 35.5 (34.0-71.1) % Immature Gran % (Auto) 0.5 H (0.001-0.429) % Nucleat RBC Rel Count 0.0 (0.00-0.2) % Eos # (Auto) 0.08 (0.04-0.36) x10^3/uL Immature Gran # (Auto) 0.02 (0.001-0.031) x10^3u/L Absolute Lymphs (auto) 1.60 (1.18-3.74) x10^3/uL Absolute Monos (auto) 0.75 (0.24-0.86) x10^3/uL Absolute Nucleated RBC 0.00 (0.00-0.012) x10^3u/L Lymphocytes % 41.6 (19.3-51.7) % Monocytes % 19.5 H (4.7-12.5) % Eosinophils % 2.1 (0.7-5.8) % Basophils % 0.8 (0.1-1.2) % Absolute Granulocytes 1.37 L (1.56-6.13) x10^3/uL Basophils # 0.03 (0.01-0.08) x10^3/uL Sodium 138 (135-145) mmol/L Potassium 3.4 L (3.5-5.1) mmol/L Chloride 108 H (98-107) mmol/L Carbon Dioxide 23 (22-30) mmol/L Anion Gap 11.2 (5-15) MEQ/L BUN < 2 L (7-17) mg/dL Creatinine 0.82 (0.52-1.04) mg/dL Estimated GFR 93.3 ML/MIN Glucose 110 H (74-106) mg/dL POC Glucometer 100 (74 to 106) mg/dL Lactic Acid (0.4-2.0) Calcium 9.2 (8.4-10.2) mg/dL Magnesium (1.6-2.3) mg/dL Total Bilirubin 0.10 L (0.2-1.3) mg/dL AST 49 H (14-36) U/L ALT 32 (0-35) U/L Alkaline Phosphatase 41 (38-126) U/L Troponin I (0.000-0.033) ng/mL Serum Total Protein 6.4 (6.3-8.2) g/dL Albumin 3.3 L (3.5-5.0) g/dL Amylase (30-110) U/L Lipase (23-300) U/L Urine Color (Yellow) Urine Appearance (Clear) Urine pH (4.6-8.0) Ur Specific [place] (1.005-1.030) Urine Protein (Negative) Urine Glucose (UA) (Negative) mg/dL Urine Ketones (Negative) Urine Blood (Negative) Urine Nitrite (Negative) Urine Bilirubin (Negative) Urine Urobilinogen (0.2) mg/dL Ur Leukocyte Esterase (Negative) U Hyaline Cast (Auto) (0-2) /LPF Urine Microscopic RBC (0-5) /HPF Urine Microscopic WBC (0-5) /HPF Ur Epithelial Cells (None Seen) /HPF Urine Bacteria (None Seen) /HPF Urine Culture Reflexed (NO) Urine Opiates Level (NEGATIVE) Ur Methadone (NEGATIVE) Urine Barbiturates (NEGATIVE) Ur Phencyclidine (PCP) (NEGATIVE) Urine Amphetamine (NEGATIVE) U Benzodiazepine Level (NEGATIVE) Urine Cocaine (NEGATIVE) Urine Marijuana (THC) (NEGATIVE) Radiology Exams: Radiology Procedures Category Date Time Status GASTRIC EMPTYING [NUCMED] Routine Exams 11/22/23 07:00 Ordered Assessment/Plan (1) Hypokalemia Current Visit: Yes Status: Acute Assessment & Plan: -Potassium level at 2.8 on admission, secondary to GI loss -replenish per protocol -tele Code(s): E87.6 - HYPOKALEMIA (2) Intractable vomiting Current Visit: Yes Status: Acute Assessment & Plan: -Multiple CT scans over the past several weeks with no acute findings -Supportive care - anti-emetics, IVF -UDS -NPO - ADAT -Gastric emptying study - ? secondary to gastroparesis Code(s): R11.10 - VOMITING, UNSPECIFIED (3) Diabetes mellitus Current Visit: Yes Status: Acute Assessment & Plan: -ADA diet when able -A1c at 6.75 on 11/14/23 -SSI when able to consume diet Code(s): E11.9 - TYPE 2 DIABETES MELLITUS WITHOUT COMPLICATIONS (4) Abdominal pain Current Visit: No Status: Acute Assessment & Plan: -see intractable n/v Code(s): R10.9 - UNSPECIFIED ABDOMINAL PAIN (5) Anxiety and depression Current Visit: No Status: Acute Assessment & Plan: -continue home meds Code(s): F41.9 - ANXIETY DISORDER, UNSPECIFIED; F32.A - DEPRESSION, UNSPECIFIED (6) Smoker Current Visit: Yes Status: Acute Assessment & Plan: -1/2 PPD -Advised cessation -nicotine patch Elevated Troponin -recent Cath with no stentable cardiac vessel lesion -no further evaluation needed -VTE bilat SCD -PPI - protonix Dispo: 1-2 days Code(s): E87.6 - HYPOKALEMIA (2) Intractable vomiting Current Visit: Yes Status: Acute Code(s): R11.10 - VOMITING, UNSPECIFIED (3) Diabetes mellitus Current Visit: Yes Status: Acute Code(s): E11.9 - TYPE 2 DIABETES MELLITUS WITHOUT COMPLICATIONS (4) Abdominal pain Current Visit: No Status: Acute Code(s): R10.9 - UNSPECIFIED ABDOMINAL PAIN (5) Anxiety and depression Current Visit: No Status: Acute Code(s): F41.9 - ANXIETY DISORDER, UNSPECIFIED; F32.A - DEPRESSION, UNSPECIFIED (6) Smoker Current Visit: Yes Status: Acute Code(s): F17.200 - NICOTINE DEPENDENCE, UNSPECIFIED, UNCOMPLICATED (7) Elevated troponin Current Visit: Yes Status: Acute Code(s): R79.89 - OTHER SPECIFIED ABNORMAL FINDINGS OF BLOOD CHEMISTRY
[2023-11-20] MEDS: Zofran 4 MG/2 ML VIAL IV PRN (07:00)
[2023-11-20 07:34] VITALS: BP 106/65; PULSE 83; TEMP 97.2; O2SAT 94
[2023-11-20] MEDS: Docusate Sodium 100 MG PO SCH (09:25)
--- NOTE | 2023-11-20 09:40 | PCM.DS ---
Discharge Summary Date of Admission: 11/19/23 16:03 Date of Discharge: 11/20/23 Admitting Physician: DELMIS WHITING MD Primary Care Provider: LUZ MARIA,AMEE Allergies Allergies promethazine [From Phenergan] Allergy (Severe, Verified 11/19/23 16:07) Difficulty Breathing only with iv phenergan ketorolac [From Toradol] Allergy (Intermediate, Verified 11/19/23 16:07) Rash sulfamethoxazole [From Bactrim] Allergy (Intermediate, Verified 11/19/23 16:07) Itching tramadol Allergy (Intermediate, Verified 11/19/23 16:07) Rash trimethoprim [From Bactrim] Allergy (Intermediate, Verified 11/19/23 16:07) Itching diphenhydramine [From Benadryl] Adverse Reaction (Severe, Verified 11/19/23 16:07) Difficulty Swallowing only with iv benadryl Hospital Summary - Hospital Course Hospital Course: is a 38 year old female with a pmhx of migraines, type II DM, pancreatitis, anxiety, smoker, depression, and RLS who presented to the ED 11/19/23 with complaints of intractable nausea and vomiting. Of note, patient has has multiple ED visits - 8 since 10/10/23 with similar complaints. Recent heart cath which did not show a stentable cardiac vessel lesion. Patient states this has been going on for about 2 weeks. She has not been able to keep food/drink down and has been feeling weak and light-headed. She does report chronic pain. She has a GI appt in December. Also left AMA from ED this morning with complaints of chest pain - not having CP now, states only when she is vomiting. Denies fever,cough, sob, cp, ARAMBULA, or diarrhea. Denies alcohol or drug use. UDS negative. In ED,patient mildly tachycardic, otherwise stable vitals. Previous imaging reviewed from 11/19/23 - CXR with no acute cardiopulmonary processes. 11/14/23 CT abd/pelvis with no acute findings. 11/11/23 CT ab/pelvis - no acute findings. EKG from 11/19/23 NS Non-specific ST Changes, Other (low voltage). Labs remarkable for hypokalemia, BNP at 5400, and elevated trop x 2 (downtrending). Received compazine, potassium, and fluid bolus in ED. No overnight events noted. Nausea/vomiting have resolved. Hypokalemia resolved. She is now tolerating a diet and requesting dischage. Symptoms may be related to gastroparesis secondary from her DM. Gastric emptying study ordered for OP, advised follow up with PCP for results. Patient does have appt with GI the first week of Dec. Will send home on reglan. Patient agreeable to plan. Discharge Note New Diagnosis: Hypokalemia New Medications: potassium Follow Up: PCP/GI Outpatient testing to order: Gastric emptying study Latest Assessment & Plan (1) Hypokalemia Current Visit: Yes Status: Acute Assessment & Plan: -Potassium level at 2.8 on admission, secondary to GI loss -replenish per protocol -tele 11/19: -resolved Code(s): E87.6 - HYPOKALEMIA (2) Intractable vomiting Current Visit: Yes Status: Acute Assessment & Plan: -Multiple CT scans over the past several weeks with no acute findings -Supportive care - anti-emetics, IVF -UDS -NPO - ADAT -Gastric emptying study - ? secondary to gastroparesis 11/19: -resolved - Gastric emptying study as OP -GI followu up Code(s): R11.10 - VOMITING, UNSPECIFIED (3) Diabetes mellitus Current Visit: Yes Status: Acute Assessment & Plan: -ADA diet when able -A1c at 6.75 on 11/14/23 -SSI when able to consume diet Code(s): E11.9 - TYPE 2 DIABETES MELLITUS WITHOUT COMPLICATIONS (4) Abdominal pain Current Visit: No Status: Acute Assessment & Plan: -see intractable n/v Code(s): R10.9 - UNSPECIFIED ABDOMINAL PAIN (5) Anxiety and depression Current Visit: No Status: Acute Assessment & Plan: -continue home meds Code(s): F41.9 - ANXIETY DISORDER, UNSPECIFIED; F32.A - DEPRESSION, UNSPECIFIED (6) Smoker Current Visit: Yes Status: Acute Assessment & Plan: -1/2 PPD -Advised cessation -nicotine patch Elevated Troponin -recent Cath with no stentable cardiac vessel lesion -no further evaluation needed -VTE bilat SCD -PPI - protonix Dispo: 1-2 days I spent 35 minutes [id number] with the patient on the day of discharge performing discharge exam, discussing hospital stay and discharge instructions with patient and caregivers, preparation of discharge records, prescriptions & referral forms and addressing any questions/concerns the patient had as documented above. - Vitals & Intake/Output Vital Signs: Vital Signs Temperature 97.2 F 11/20/23 07:33 Pulse Rate 83 11/20/23 07:33 Respiratory Rate 16 11/20/23 07:33 Blood Pressure 106/65 11/20/23 07:33 O2 Sat by Pulse Oximetry 94 L 11/20/23 07:33 Intake & Output: Intake & Output 11/17/23 11/18/23 11/19/23 11/20/23 11:59 11:59 11:59 11:59 Intake Total 1220 Output Total 650 Balance 570 Weight 82.1 kg - Lab Result Diagrams: 11/20/23 02:55 11/20/23 02:55 Lab Results-Last 24 Hrs: Lab Results-Last 24 Hours 11/19/23 11/19/23 11/19/23 Range/Units 13:45 14:00 14:00 WBC 4.0 (3.98-10.04) x10^3/uL RBC 4.45 (3.93-5.22) x10^6/uL Hgb 11.3 (11.2-15.7) g/dL Hct 35.4 (34.1-44.9) % MCV 79.6 (79.4-94.8) fL MCH 25.4 L (25.6-32.2) pg MCHC 31.9 L (32.2-35.5) g/dL RDW 15.6 H (11.7-14.4) % Plt Count 259 (182-369) x10^3/uL MPV 9.4 (9.4-12.3) fL Gran % 48.7 (34.0-71.1) % Immature Gran % (Auto) 0.3 (0.001-0.429) % Nucleat RBC Rel Count 0.0 (0.00-0.2) % Eos # (Auto) 0.02 L (0.04-0.36) x10^3/uL Immature Gran # (Auto) 0.01 (0.001-0.031) x10^3u/L Absolute Lymphs (auto) 1.10 L (1.18-3.74) x10^3/uL Absolute Monos (auto) 0.89 H (0.24-0.86) x10^3/uL Absolute Nucleated RBC 0.00 (0.00-0.012) x10^3u/L Lymphocytes % 27.6 (19.3-51.7) % Monocytes % 22.4 H (4.7-12.5) % Eosinophils % 0.5 L (0.7-5.8) % Basophils % 0.5 (0.1-1.2) % Absolute Granulocytes 1.94 (1.56-6.13) x10^3/uL Basophils # 0.02 (0.01-0.08) x10^3/uL Sodium 140 (135-145) mmol/L Potassium 2.8 L* (3.5-5.1) mmol/L Chloride 103 (98-107) mmol/L Carbon Dioxide 26 (22-30) mmol/L Anion Gap 13.4 (5-15) MEQ/L BUN < 2 L (7-17) mg/dL Creatinine 0.76 (0.52-1.04) mg/dL Estimated GFR 102.2 ML/MIN Glucose 215 H (74-106) mg/dL POC Glucometer (74 to 106) mg/dL Lactic Acid 1.5 (0.4-2.0) Calcium 10.0 (8.4-10.2) mg/dL Magnesium (1.6-2.3) mg/dL Total Bilirubin 0.20 (0.2-1.3) mg/dL AST 36 (14-36) U/L ALT 32 (0-35) U/L Alkaline Phosphatase 45 (38-126) U/L Troponin I 0.084 H* (0.000-0.033) ng/mL Serum Total Protein 7.3 (6.3-8.2) g/dL Albumin 4.1 (3.5-5.0) g/dL Amylase 86 (30-110) U/L Lipase 121 (23-300) U/L Urine Color (Yellow) Urine Appearance (Clear) Urine pH (4.6-8.0) Ur Specific [place] (1.005-1.030) Urine Protein (Negative) Urine Glucose (UA) (Negative) mg/dL Urine Ketones (Negative) Urine Blood (Negative) Urine Nitrite (Negative) Urine Bilirubin (Negative) Urine Urobilinogen (0.2) mg/dL Ur Leukocyte Esterase (Negative) U Hyaline Cast (Auto) (0-2) /LPF Urine Microscopic RBC (0-5) /HPF Urine Microscopic WBC (0-5) /HPF Ur Epithelial Cells (None Seen) /HPF Urine Bacteria (None Seen) /HPF Urine Culture Reflexed (NO) Urine Opiates Level (NEGATIVE) Ur Methadone (NEGATIVE) Urine Barbiturates (NEGATIVE) Ur Phencyclidine (PCP) (NEGATIVE) Urine Amphetamine (NEGATIVE) U Benzodiazepine Level (NEGATIVE) Urine Cocaine (NEGATIVE) Urine Marijuana (THC) (NEGATIVE) 11/19/23 11/19/23 11/19/23 Range/Units 14:00 14:55 14:55 WBC (3.98-10.04) x10^3/uL RBC (3.93-5.22) x10^6/uL Hgb (11.2-15.7) g/dL Hct (34.1-44.9) % MCV (79.4-94.8) fL MCH (25.6-32.2) pg MCHC (32.2-35.5) g/dL RDW (11.7-14.4) % Plt Count (182-369) x10^3/uL MPV (9.4-12.3) fL Gran % (34.0-71.1) % Immature Gran % (Auto) (0.001-0.429) % Nucleat RBC Rel Count (0.00-0.2) % Eos # (Auto) (0.04-0.36) x10^3/uL Immature Gran # (Auto) (0.001-0.031) x10^3u/L Absolute Lymphs (auto) (1.18-3.74) x10^3/uL Absolute Monos (auto) (0.24-0.86) x10^3/uL Absolute Nucleated RBC (0.00-0.012) x10^3u/L Lymphocytes % (19.3-51.7) % Monocytes % (4.7-12.5) % Eosinophils % (0.7-5.8) % Basophils % (0.1-1.2) % Absolute Granulocytes (1.56-6.13) x10^3/uL Basophils # (0.01-0.08) x10^3/uL Sodium (135-145) mmol/L Potassium (3.5-5.1) mmol/L Chloride (98-107) mmol/L Carbon Dioxide (22-30) mmol/L Anion Gap (5-15) MEQ/L BUN (7-17) mg/dL Creatinine (0.52-1.04) mg/dL Estimated GFR ML/MIN Glucose (74-106) mg/dL POC Glucometer (74 to 106) mg/dL Lactic Acid (0.4-2.0) Calcium (8.4-10.2) mg/dL Magnesium 1.6 (1.6-2.3) mg/dL Total Bilirubin (0.2-1.3) mg/dL AST (14-36) U/L ALT (0-35) U/L Alkaline Phosphatase (38-126) U/L Troponin I (0.000-0.033) ng/mL Serum Total Protein (6.3-8.2) g/dL Albumin (3.5-5.0) g/dL Amylase (30-110) U/L Lipase (23-300) U/L Urine Color Yellow (Yellow) Urine Appearance Turbid A (Clear) Urine pH 8.0 (4.6-8.0) Ur Specific [place] <=1.005 (1.005-1.030) Urine Protein Negative (Negative) Urine Glucose (UA) Negative (Negative) mg/dL Urine Ketones Negative (Negative) Urine Blood Negative (Negative) Urine Nitrite Negative (Negative) Urine Bilirubin Negative (Negative) Urine Urobilinogen 0.2 (0.2) mg/dL Ur Leukocyte Esterase Negative (Negative) U Hyaline Cast (Auto) NONE SEEN (0-2) /LPF Urine Microscopic RBC 0-2 (0-5) /HPF Urine Microscopic WBC 0-2 (0-5) /HPF Ur Epithelial Cells Rare (None Seen) /HPF Urine Bacteria None Seen (None Seen) /HPF Urine Culture Reflexed NO (NO) Urine Opiates Level NEGATIVE (NEGATIVE) Ur Methadone NEGATIVE (NEGATIVE) Urine Barbiturates NEGATIVE (NEGATIVE) Ur Phencyclidine (PCP) NEGATIVE (NEGATIVE) Urine Amphetamine NEGATIVE (NEGATIVE) U Benzodiazepine Level NEGATIVE (NEGATIVE) Urine Cocaine NEGATIVE (NEGATIVE) Urine Marijuana (THC) NEGATIVE (NEGATIVE) 11/19/23 11/19/23 11/19/23 Range/Units 17:04 17:42 20:00 WBC (3.98-10.04) x10^3/uL RBC (3.93-5.22) x10^6/uL Hgb (11.2-15.7) g/dL Hct (34.1-44.9) % MCV (79.4-94.8) fL MCH (25.6-32.2) pg MCHC (32.2-35.5) g/dL RDW (11.7-14.4) % Plt Count (182-369) x10^3/uL MPV (9.4-12.3) fL Gran % (34.0-71.1) % Immature Gran % (Auto) (0.001-0.429) % Nucleat RBC Rel Count (0.00-0.2) % Eos # (Auto) (0.04-0.36) x10^3/uL Immature Gran # (Auto) (0.001-0.031) x10^3u/L Absolute Lymphs (auto) (1.18-3.74) x10^3/uL Absolute Monos (auto) (0.24-0.86) x10^3/uL Absolute Nucleated RBC (0.00-0.012) x10^3u/L Lymphocytes % (19.3-51.7) % Monocytes % (4.7-12.5) % Eosinophils % (0.7-5.8) % Basophils % (0.1-1.2) % Absolute Granulocytes (1.56-6.13) x10^3/uL Basophils # (0.01-0.08) x10^3/uL Sodium (135-145) mmol/L Potassium (3.5-5.1) mmol/L Chloride (98-107) mmol/L Carbon Dioxide (22-30) mmol/L Anion Gap (5-15) MEQ/L BUN (7-17) mg/dL Creatinine (0.52-1.04) mg/dL Estimated GFR ML/MIN Glucose (74-106) mg/dL POC Glucometer 133 H (74 to 106) mg/dL Lactic Acid (0.4-2.0) Calcium (8.4-10.2) mg/dL Magnesium (1.6-2.3) mg/dL Total Bilirubin (0.2-1.3) mg/dL AST (14-36) U/L ALT (0-35) U/L Alkaline Phosphatase (38-126) U/L Troponin I 0.075 H* 0.071 H* (0.000-0.033) ng/mL Serum Total Protein (6.3-8.2) g/dL Albumin (3.5-5.0) g/dL Amylase (30-110) U/L Lipase (23-300) U/L Urine Color (Yellow) Urine Appearance (Clear) Urine pH (4.6-8.0) Ur Specific [place] (1.005-1.030) Urine Protein (Negative) Urine Glucose (UA) (Negative) mg/dL Urine Ketones (Negative) Urine Blood (Negative) Urine Nitrite (Negative) Urine Bilirubin (Negative) Urine Urobilinogen (0.2) mg/dL Ur Leukocyte Esterase (Negative) U Hyaline Cast (Auto) (0-2) /LPF Urine Microscopic RBC (0-5) /HPF Urine Microscopic WBC (0-5) /HPF Ur Epithelial Cells (None Seen) /HPF Urine Bacteria (None Seen) /HPF Urine Culture Reflexed (NO) Urine Opiates Level (NEGATIVE) Ur Methadone (NEGATIVE) Urine Barbiturates (NEGATIVE) Ur Phencyclidine (PCP) (NEGATIVE) Urine Amphetamine (NEGATIVE) U Benzodiazepine Level (NEGATIVE) Urine Cocaine (NEGATIVE) Urine Marijuana (THC) (NEGATIVE) 11/19/23 11/19/23 11/19/23 Range/Units 20:00 20:22 23:24 WBC (3.98-10.04) x10^3/uL RBC (3.93-5.22) x10^6/uL Hgb (11.2-15.7) g/dL Hct (34.1-44.9) % MCV (79.4-94.8) fL MCH (25.6-32.2) pg MCHC (32.2-35.5) g/dL RDW (11.7-14.4) % Plt Count (182-369) x10^3/uL MPV (9.4-12.3) fL Gran % (34.0-71.1) % Immature Gran % (Auto) (0.001-0.429) % Nucleat RBC Rel Count (0.00-0.2) % Eos # (Auto) (0.04-0.36) x10^3/uL Immature Gran # (Auto) (0.001-0.031) x10^3u/L Absolute Lymphs (auto) (1.18-3.74) x10^3/uL Absolute Monos (auto) (0.24-0.86) x10^3/uL Absolute Nucleated RBC (0.00-0.012) x10^3u/L Lymphocytes % (19.3-51.7) % Monocytes % (4.7-12.5) % Eosinophils % (0.7-5.8) % Basophils % (0.1-1.2) % Absolute Granulocytes (1.56-6.13) x10^3/uL Basophils # (0.01-0.08) x10^3/uL Sodium (135-145) mmol/L Potassium 3.2 L (3.5-5.1) mmol/L Chloride (98-107) mmol/L Carbon Dioxide (22-30) mmol/L Anion Gap (5-15) MEQ/L BUN (7-17) mg/dL Creatinine (0.52-1.04) mg/dL Estimated GFR ML/MIN Glucose (74-106) mg/dL POC Glucometer 104 102 (74 to 106) mg/dL Lactic Acid (0.4-2.0) Calcium (8.4-10.2) mg/dL Magnesium (1.6-2.3) mg/dL Total Bilirubin (0.2-1.3) mg/dL AST (14-36) U/L ALT (0-35) U/L Alkaline Phosphatase (38-126) U/L Troponin I (0.000-0.033) ng/mL Serum Total Protein (6.3-8.2) g/dL Albumin (3.5-5.0) g/dL Amylase (30-110) U/L Lipase (23-300) U/L Urine Color (Yellow) Urine Appearance (Clear) Urine pH (4.6-8.0) Ur Specific [place] (1.005-1.030) Urine Protein (Negative) Urine Glucose (UA) (Negative) mg/dL Urine Ketones (Negative) Urine Blood (Negative) Urine Nitrite (Negative) Urine Bilirubin (Negative) Urine Urobilinogen (0.2) mg/dL Ur Leukocyte Esterase (Negative) U Hyaline Cast (Auto) (0-2) /LPF Urine Microscopic RBC (0-5) /HPF Urine Microscopic WBC (0-5) /HPF Ur Epithelial Cells (None Seen) /HPF Urine Bacteria (None Seen) /HPF Urine Culture Reflexed (NO) Urine Opiates Level (NEGATIVE) Ur Methadone (NEGATIVE) Urine Barbiturates (NEGATIVE) Ur Phencyclidine (PCP) (NEGATIVE) Urine Amphetamine (NEGATIVE) U Benzodiazepine Level (NEGATIVE) Urine Cocaine (NEGATIVE) Urine Marijuana (THC) (NEGATIVE) 11/20/23 11/20/23 11/20/23 Range/Units 02:55 02:55 04:20 WBC 3.9 L (3.98-10.04) x10^3/uL RBC 4.20 (3.93-5.22) x10^6/uL Hgb 10.7 L (11.2-15.7) g/dL Hct 34.6 (34.1-44.9) % MCV 82.4 (79.4-94.8) fL MCH 25.5 L (25.6-32.2) pg MCHC 30.9 L (32.2-35.5) g/dL RDW 15.8 H (11.7-14.4) % Plt Count 243 (182-369) x10^3/uL MPV 9.8 (9.4-12.3) fL Gran % 35.5 (34.0-71.1) % Immature Gran % (Auto) 0.5 H (0.001-0.429) % Nucleat RBC Rel Count 0.0 (0.00-0.2) % Eos # (Auto) 0.08 (0.04-0.36) x10^3/uL Immature Gran # (Auto) 0.02 (0.001-0.031) x10^3u/L Absolute Lymphs (auto) 1.60 (1.18-3.74) x10^3/uL Absolute Monos (auto) 0.75 (0.24-0.86) x10^3/uL Absolute Nucleated RBC 0.00 (0.00-0.012) x10^3u/L Lymphocytes % 41.6 (19.3-51.7) % Monocytes % 19.5 H (4.7-12.5) % Eosinophils % 2.1 (0.7-5.8) % Basophils % 0.8 (0.1-1.2) % Absolute Granulocytes 1.37 L (1.56-6.13) x10^3/uL Basophils # 0.03 (0.01-0.08) x10^3/uL Sodium 138 (135-145) mmol/L Potassium 3.4 L (3.5-5.1) mmol/L Chloride 108 H (98-107) mmol/L Carbon Dioxide 23 (22-30) mmol/L Anion Gap 11.2 (5-15) MEQ/L BUN < 2 L (7-17) mg/dL Creatinine 0.82 (0.52-1.04) mg/dL Estimated GFR 93.3 ML/MIN Glucose 110 H (74-106) mg/dL POC Glucometer 100 (74 to 106) mg/dL Lactic Acid (0.4-2.0) Calcium 9.2 (8.4-10.2) mg/dL Magnesium (1.6-2.3) mg/dL Total Bilirubin 0.10 L (0.2-1.3) mg/dL AST 49 H (14-36) U/L ALT 32 (0-35) U/L Alkaline Phosphatase 41 (38-126) U/L Troponin I (0.000-0.033) ng/mL Serum Total Protein 6.4 (6.3-8.2) g/dL Albumin 3.3 L (3.5-5.0) g/dL Amylase (30-110) U/L Lipase (23-300) U/L Urine Color (Yellow) Urine Appearance (Clear) Urine pH (4.6-8.0) Ur Specific [place] (1.005-1.030) Urine Protein (Negative) Urine Glucose (UA) (Negative) mg/dL Urine Ketones (Negative) Urine Blood (Negative) Urine Nitrite (Negative) Urine Bilirubin (Negative) Urine Urobilinogen (0.2) mg/dL Ur Leukocyte Esterase (Negative) U Hyaline Cast (Auto) (0-2) /LPF Urine Microscopic RBC (0-5) /HPF Urine Microscopic WBC (0-5) /HPF Ur Epithelial Cells (None Seen) /HPF Urine Bacteria (None Seen) /HPF Urine Culture Reflexed (NO) Urine Opiates Level (NEGATIVE) Ur Methadone (NEGATIVE) Urine Barbiturates (NEGATIVE) Ur Phencyclidine (PCP) (NEGATIVE) Urine Amphetamine (NEGATIVE) U Benzodiazepine Level (NEGATIVE) Urine Cocaine (NEGATIVE) Urine Marijuana (THC) (NEGATIVE) 11/20/23 Range/Units 07:01 WBC (3.98-10.04) x10^3/uL RBC (3.93-5.22) x10^6/uL Hgb (11.2-15.7) g/dL Hct (34.1-44.9) % MCV (79.4-94.8) fL MCH (25.6-32.2) pg MCHC (32.2-35.5) g/dL RDW (11.7-14.4) % Plt Count (182-369) x10^3/uL MPV (9.4-12.3) fL Gran % (34.0-71.1) % Immature Gran % (Auto) (0.001-0.429) % Nucleat RBC Rel Count (0.00-0.2) % Eos # (Auto) (0.04-0.36) x10^3/uL Immature Gran # (Auto) (0.001-0.031) x10^3u/L Absolute Lymphs (auto) (1.18-3.74) x10^3/uL Absolute Monos (auto) (0.24-0.86) x10^3/uL Absolute Nucleated RBC (0.00-0.012) x10^3u/L Lymphocytes % (19.3-51.7) % Monocytes % (4.7-12.5) % Eosinophils % (0.7-5.8) % Basophils % (0.1-1.2) % Absolute Granulocytes (1.56-6.13) x10^3/uL Basophils # (0.01-0.08) x10^3/uL Sodium (135-145) mmol/L Potassium (3.5-5.1) mmol/L Chloride (98-107) mmol/L Carbon Dioxide (22-30) mmol/L Anion Gap (5-15) MEQ/L BUN (7-17) mg/dL Creatinine (0.52-1.04) mg/dL Estimated GFR ML/MIN Glucose (74-106) mg/dL POC Glucometer 107 H (74 to 106) mg/dL Lactic Acid (0.4-2.0) Calcium (8.4-10.2) mg/dL Magnesium (1.6-2.3) mg/dL Total Bilirubin (0.2-1.3) mg/dL AST (14-36) U/L ALT (0-35) U/L Alkaline Phosphatase (38-126) U/L Troponin I (0.000-0.033) ng/mL Serum Total Protein (6.3-8.2) g/dL Albumin (3.5-5.0) g/dL Amylase (30-110) U/L Lipase (23-300) U/L Urine Color (Yellow) Urine Appearance (Clear) Urine pH (4.6-8.0) Ur Specific [place] (1.005-1.030) Urine Protein (Negative) Urine Glucose (UA) (Negative) mg/dL Urine Ketones (Negative) Urine Blood (Negative) Urine Nitrite (Negative) Urine Bilirubin (Negative) Urine Urobilinogen (0.2) mg/dL Ur Leukocyte Esterase (Negative) U Hyaline Cast (Auto) (0-2) /LPF Urine Microscopic RBC (0-5) /HPF Urine Microscopic WBC (0-5) /HPF Ur Epithelial Cells (None Seen) /HPF Urine Bacteria (None Seen) /HPF Urine Culture Reflexed (NO) Urine Opiates Level (NEGATIVE) Ur Methadone (NEGATIVE) Urine Barbiturates (NEGATIVE) Ur Phencyclidine (PCP) (NEGATIVE) Urine Amphetamine (NEGATIVE) U Benzodiazepine Level (NEGATIVE) Urine Cocaine (NEGATIVE) Urine Marijuana (THC) (NEGATIVE) Micro Results-Entire Visit: Accuchecks Date 11/20/23 Date 11/19/23 Time 17:13 - Radiology Exams Ordered Rad Exams-Entire Visit: Radiology Procedures Category Date Time Status GASTRIC EMPTYING [NUCMED] Routine Exams 11/22/23 07:00 Ordered Discharge Exam General Appearance: no apparent distress Neurologic Exam: alert, oriented x 3, cooperative Eye Exam: PERRL Ears, Nose, Throat Exam: normal ENT inspection Neck Exam: normal inspection Respiratory Exam: normal breath sounds, lungs clear Cardiovascular Exam: regular rate/rhythm, normal heart sounds Gastrointestinal/Abdomen Exam: soft, normal bowel sounds Pelvic Exam: deferred Rectal Exam: deferred Back Exam: normal inspection Extremity Exam: normal inspection Skin Exam: normal color Final Diagnosis/Problem List - Final Discharge Diagnosis/Problem (1) Hypokalemia Current Visit: Yes Status: Resolved Code(s): E87.6 - HYPOKALEMIA (2) Intractable vomiting Current Visit: Yes Status: Resolved Code(s): R11.10 - VOMITING, UNSPECIFIED (3) Diabetes mellitus Current Visit: Yes Status: Chronic Code(s): E11.9 - TYPE 2 DIABETES MELLITUS WITHOUT COMPLICATIONS (4) Abdominal pain Current Visit: No Status: Chronic Code(s): R10.9 - UNSPECIFIED ABDOMINAL PAIN (5) Anxiety and depression Current Visit: No Status: Chronic Code(s): F41.9 - ANXIETY DISORDER, UNSPECIFIED; F32.A - DEPRESSION, UNSPECIFIED (6) Smoker Current Visit: Yes Status: Chronic Code(s): F17.200 - NICOTINE DEPENDENCE, UNSPECIFIED, UNCOMPLICATED (7) Elevated troponin Current Visit: Yes Status: Chronic Code(s): R79.89 - OTHER SPECIFIED ABNORMAL FINDINGS OF BLOOD CHEMISTRY - Discharge Disposition: Home, Self-Care Condition: Stable Prescriptions: Continue Propranolol HCl [Inderal ] 30 mg PO BID PANTOPRAZOLE 40 mg Tablet [Protonix 40MG Tablet] 40 mg PO DAILY Ondansetron ODT 4 MG [Zofran Odt 4 mg] 8 mg PO Q6H PRN PRN PRN Reason: Vomiting Famotidine [Pepcid] 10 mg PO HS Buspirone HCl 5 mg [Buspar 5 mg] 15 mg PO TID Prazosin HCl 1 mg PO HS Quetiapine Fumarate 100 mg [Seroquel 100 MG] 100 mg PO HS Potassium Chloride [Klor-Con M20] 20 meq PO BID Docusate Sodium 100 mg [Docusate Sodium 100 MG] 100 mg PO DAILY Additional Instructions: -Follow up with GI as scheduled Follow up with: AMEE LOERA MD [Primary Care Provider] -
== END 2023-11-20 09:55 | disposition home or self-care (01) ==
LOC: ED 13:15 → MED SURG 16:03
PROVIDERS: ADMIT Internal Medicine; ATTEND Internal Medicine
DX: E87.6 Hypokalemia (principal); R11.10 Vomiting, unspecified; Z59.811 Housing instability, housed, with risk of homelessness; E11.9 Type 2 diabetes mellitus without complications; R10.9 Unspecified abdominal pain; F41.9 Anxiety disorder, unspecified; F17.200 Nicotine dependence, unspecified, uncomplicated; R79.89 Other specified abnormal findings of blood chemistry; Z79.899 Other long term (current) drug therapy
CPT/HCPCS: 36000; 36415; 80053; 80307; 81001; 82150; 82947; 83605; 83690; 83735; 84132; 84484; 85025; 93005; 93268; 96365; 96374; 96375; 99285; 99291; J1170; J2405; J3480; Q3014; A9270-GY; G0378